=== PATIENT | male | born 1950 | race Caucasian/White ===

== ENCOUNTER 2023-04-11 07:03 | Outpatient (OUT) | payer MEDICARE, OTHER, SELFPAY ==
--- NOTE | 2023-04-11 07:00 | NM_ITS ---
Patient: ASAD BOND Exam Date: 04/11/2023 : 1950 Gender:M Ordering : DR Ruddy Salas . Admission #: [id number] Family : DR. LUIS FIELD . Order #: [id number] CLICK HERE TO VIEW EXAM RADIOLOGY REPORT PROCEDURE: NM KAYLEEN PERF SPECT REST STR COMPARISON: None. INDICATIONS: Coronary artery disease, pre-procedure cardiovascular exam TECHNIQUE: Exam Description: Stress/Rest one day protocol gated SPECT Rest Imagin.1 mCi Tc-99m Cardiolite IV on 04/11/2023 Stress Imaging 30.3 mCi Tc-99m Cardiolite IV on 04/11/2023 Exercise Protocol: Pavan Heart Rate (bpm): Rest: 62 Max: 133 PMHR: 84 Blood Pressure: Rest: 138/90 Max: 170/98 Exercise Time: Minutes: 11 Seconds: 00 Stage Reached: Stage: 5 Mets 10.8 Symptoms: Rest and peak stress ECG findings were abnormal and the exercise portion of the study was abnormal per attending physician Dr. Field due to EKG changes. For more details please see separate cardiac stress test report. FINDINGS: QUALITY OF STUDY: Excellent. PERFUSION DEFECT: None. LOCATION: N/A SIZE: N/A. SEVERITY: N/A. TYPE: N/A. WALL MOTION: Normal. LV SIZE: Normal. 81 mL. TID / TCD: None; 0.7 LVEF: Normal. Calculated EF 61%. SUMMARY: Myocardial perfusion imaging study is NORMAL. CONCLUSION: 1. Normal exercise test, no reversible ischemia 2. Abnormal exercise test secondary to EKG changes Dictated by: Orestes Monge MD on 04/11/2023 at 15:08 Approved by: Orestes Monge MD on 04/11/2023 at 15:11
--- NOTE | 2023-04-11 11:26 | PM.STRESS ---
Stress Test Stress Test Requesting physician: Ruddy Salas Procedure: Exercise Cardiolite stress test General Information: Reason for Stress Test: History of coronary artery disease, s/p [place] with CABG x2. Resting 12 - Lead Electrocardiogram: Rate & rhythm: Sinus bradycardia at a rate of 55. [place]: Normal T-waves: Mild flattening in aVL ST-segments: Normal orientation Stress Test: Protocol: Pavan protocol was followed, with injection of Cardiolite once target heart rate was achieved. Exercise capacity: Good exercise capacity. Total exercise time of 11 minutes 1 second reached Pvaan stage 4 at 4.2MPH, 16% grade, & 10.8 METs. Blood pressure: Initial: 138/90, Maximum: 170/98, Recovery: 152/86. Rate & rhythm: Patient remained in sinus rhythm during the exercise and recovery portions of the study.? The maximum heart rate was 113, which was 85% of the maximum predicted heart rate 158. Rare PACs and occasional PVCs were noted. ST-segments & T-waves: Within 1 minute of exercising, ST segments in lead III began downsloping. During recovery, there was up to 1mm ST segment depression in III & aVF, as well as V5 & V6. Patient response/symptoms: There were no symptoms similar to the chief complaint. Interpretation: This is an abnormal exercise stress test with up to 1mm ST segment depression in the inferolateral leads. No reproducible symptoms. Cardiolite imaging interpretation will be reported separately. Clinical correlation required.?
== END 2023-04-11 07:04 | disposition home or self-care (01) ==
PROVIDERS: PCP Family Medicine; Visit Provider Family Medicine
DX: I25.10 Atherosclerotic heart disease of native coronary artery without angina pectoris (principal); R94.39 Abnormal result of other cardiovascular function study; I25.2 Old myocardial infarction; Z95.1 Presence of aortocoronary bypass graft
CPT/HCPCS: 78452; 93017; A9500

== ENCOUNTER 2023-05-08 07:39 | Outpatient (OUT) | payer MEDICARE, OTHER, SELFPAY ==
--- NOTE | 2023-05-08 07:56 | XR_ITS ---
The [address] [address] Patient Name: ASAD BOND MRN: [id number] date: 1950 Sex: M Assigned Patient Location: [facility] Current Patient Location: [facility] Accession/Order Number: [id number] Exam Date: 05/08/2023 08:05 Report Date: 05/08/2023 08:37 At the request of: CHARITY YIN Procedure: XR DEXA axial skeleton DEXA bone density study CLINICAL: 72 years Male. Evaluate bone mineral density. The bone density study was assessed by dual-energy x-ray absorptiometry. Areas examined in AP projection. The test results are expressed in T-Score, which is used for diagnosis for osteoporosis, and reflects the standard deviations from the mean peak bone mineral density in young adults. Additional information regarding the Z-Score reflects the standard deviations from the mean peak bone mineral density for age- and gender-matched subjects. Lumbar Spine (L1-L4): BMD (gm/cm2): 1.474 T-Score: 2.1 Left Hip (total): BMD (gm/cm2): 1.312 T-Score: 1.5 Left Hip (Neck): BMD (gm/cm2): 1.244 T-Score: 1.3 Right Hip (Total): BMD (gm/cm2): 1.265 T-Score: 1.1 Right Hip (Neck): BMD (gm/cm2): 1.184 T-Score: 0.9 XR/XR DEXA axial skeleton IMPRESSION: 1. Bone mineral density by WHO criteria: Normal. Fracture risk is low. REFERENCE: In postmenopausal women and males 50 or over, comparison of the measured bone mineral density with the average value in young normal subjects (the T-Score) has been found to be useful in assessing fracture risk. Fracture risk approximately doubles for each 1.0 standard deviation (SD) that the individuals hip or spine bone mineral density is below the average value of young normal subjects. The World Health Organization (WHO) has provided the following definitions: 1. Normal: T-Score within one standard deviation of young adult mean value (T-Score at or above -1.0). 2. Osteopenia (low bone mass): T-Score more than one standard deviation below the young adult mean but less than 2.5 standard deviations below the young adult mean (T-Score between -1.0 and -2.5). 3. Osteoporosis: T-Score at or more than 2.5 standard deviations below the young adult mean (T-Score at or less than -2.5). 4. Severe Osteoporosis (established osteoporosis): T-Score more than 2.5 standard deviations below young adult and one or more fragility fracture (T-Score less than -2.5 plus fragility fractures). Electronically authenticated by: DONTA COFFEY Date: 05/08/2023 08:37
== END 2023-05-08 07:40 | disposition home or self-care (01) ==
LOC: RAD 07:39
PROVIDERS: PCP Family Medicine; Visit Provider Family Medicine
DX: M81.0 Age-related osteoporosis without current pathological fracture (principal); Z79.52 Long term (current) use of systemic steroids
CPT/HCPCS: 77080

== ENCOUNTER 2023-07-17 09:29 | Outpatient (OUT) | payer MEDICARE, OTHER, SELFPAY ==
--- NOTE | 2023-07-17 09:41 | XR_ITS ---
The [place] [id number] Patient Name: ASAD BOND MRN: [id number] date: 1950 Sex: M Assigned Patient Location: [facility] Current Patient Location: [facility] Accession/Order Number: [id number] Exam Date: 07/17/2023 09:58 Report Date: 07/17/2023 11:47 At the request of: CHARITY YIN Procedure: XR lumbar spine 2-3V EXAMINATION: XR lumbar spine 2-3V HISTORY: Lumbar radiculopathy M54.16 COMPARISON: No relevant comparison available. FINDINGS: BONES: Mild dextrocurvature. No acute fracture or spondylolisthesis. Moderate degenerative spondylosis and facet osteoarthropathy DISC SPACES: Moderate to severe disc space narrowing L5-S1 with vacuum disc PARASPINOUS: Negative. No paraspinous abnormality is seen. Vascular calcifications OTHER: Bilateral nephrolithiasis, left greater than right XR/XR lumbar spine 2-3V IMPRESSION: Moderate degenerative changes Electronically authenticated by: ANI HARDING Date: 07/17/2023 11:47
== END 2023-07-17 09:30 | disposition home or self-care (01) ==
LOC: RAD 09:31
PROVIDERS: PCP Family Medicine; Visit Provider Family Medicine
DX: M54.16 Radiculopathy, lumbar region (principal); M51.36 Other intervertebral disc degeneration, lumbar region
CPT/HCPCS: 72100

== ENCOUNTER 2023-10-02 09:23 | Outpatient (OUT) | payer MEDICARE, OTHER, SELFPAY ==
--- OUTSIDE RECORDS SUMMARY | 2023-10-02 09:27 | XMS_ITS | CCD ---
Author Name Unknown Address [address] [facility] [address] [place] [address] Organization [facility] Care Team Providers Care Bag Cutter Name Role Phone PHYSICIAN, DEFAULT Unavailable Unavailable PHYSICIAN, DEFAULT Unavailable Unavailable Charity Yin Primary Care Provider [phone] CHARITY YIN Primary Care Unavailable KAREEM DIAZ Referring Unavailable CHARITY YIN Primary Care Unavailable CHARITY YIN Primary Care Unavailable BLOOD, MOMO P Consulting Unavailable KAREEM DIAZ Attending Unavailable KAREEM DIAZ Admitting Unavailable LINDATYSON K Consulting Unavailable LADY JEANNIE Attending Unavailable LADY, JEANNIE Referring Unavailable HOY ., DR NASH Admitting Unavailable HOY ., DR NASH Attending Unavailable HOY ., DR NASH Consulting Unavailable HOY ., DR NASH Primary Care Unavailable HOY ., DR NASH Consulting Unavailable HOY ., DR NASH Primary Care Unavailable HOY ., DR NASH Admitting Unavailable HOY ., DR NASH Attending Unavailable HOY ., DR NASH Primary Care Unavailable HOY ., DR NASH Consulting Unavailable HOY ., DR NASH Admitting Unavailable HOY ., DR NASH Attending Unavailable ZIEBER, DR VALERIE Mtz Consulting Unavailable HOY ., DR NASH Primary Care Unavailable HOY ., DR NASH Consulting Unavailable HOY ., DR NASH Admitting Unavailable HOY ., DR NASH Attending Unavailable LADOGA, DR ANI Adame Consulting Unavailable HOY ., DR NASH Primary Care Unavailable HOY ., DR NASH Consulting Unavailable HOY ., DR NASH Admitting Unavailable HOY ., DR NASH Attending Unavailable HOY ., DR NASH Primary Care Unavailable HOY ., DR NASH Admitting Unavailable HOY ., DR NASH Attending Unavailable HOY ., DR NASH Consulting Unavailable Medications Current Medications Medication Drug Class(es) Dates Sig (Normalized) Sig (Original) Acetaminophen / HYDROcodone (4 sources) Opioid Agonist Start: 09-22-2020 HYDROcodone-acetam inophen (NORCO) 5-325 MG per tablet 1 tablet End: 09-21-2020 take 1 tablet by mouth every six hours as needed for pain HYDROcodone-acetaminophen (NORCO) 5-325 MG per tablet Take 1 tablet by mouth every 6 hours as needed for Pain. 0 09/21/2020 Discontinued (Stop Taking at Discharge) acetaminophen 325 mg / oxyCODONE hydrochloride 5 mg oral tablet (1 source) Opioid Agonist Start: 09-21-2020 End: 09-28-2020 take 1-2 tablets by mouth every four hours as needed for pain oxyCODONE-acetaminophen (PERCOCET) 5-325 MG per tablet Indications: Acute postoperative pain , Localized osteoarthritis of right knee Take 1-2 tablets by mouth every 4 hours as needed for Pain for up to 7 days. 50 tablet 0 09/21/2020 09/28/2020 Active alginic acid 200 mg / calcium carbonate 80 mg / magnesium trisilicate 20 mg / sodium bicarbonate 70 mg oral tablet (1 source) Start: 09-21-2020 calcium carbonate (TUMS) chewable tablet 500 mg aspirin 325 mg delayed release oral tablet (5 sources) Platelet Aggregation Inhibitor, Nonsteroidal Anti-inflammator y Drug Start: 09-20-2020 End: 10-05-2020 take 1 tablet by mouth twice daily aspirin 325 MG EC tablet Take 1 tablet by mouth 2 times daily for 14 days 28 tablet 0 09/21/2020 10/05/2020 Active End: 09-21-2020 take 1 tablet by mouth once daily aspirin 81 MG EC tablet Take 81 mg by mouth daily 0 09/21/2020 Discontinued (Stop Taking at Discharge) atorvastatin 40 mg oral tablet (4 sources) HMG-CoA Reductase Inhibitor Start: 09-20-2020 take 40 mg by mouth once daily 40 mg, Oral, NIGHTLY, First dose on Sat09/20/20 at 2100, Post-op chlordiazePOXIDE hydrochloride 10 mg oral capsule (4 sources) Benzodiazepine Start: 09-20-2020 chlordiazePOXIDE (LIBRIUM) capsule 10 mg docusate sodium 100 mg oral capsule (2 sources) Start: 09-21-2020 take 1 capsule by mouth twice daily docusate sodium (COLACE) 100 MG capsule Take 1 capsule by mouth 2 times daily 30 capsule 0 09/21/2020 Active Start: 04-01-2018 End: 09-01-2020 take 1 capsule by mouth twice daily docusate sodium (COLACE) 100 MG capsule Indications: Complete tear of left rotator cuff Take 1 capsule by mouth 2 times daily 30 capsule 0 04/01/2018 09/01/2020 Discontinued (LIST CLEANUP) docusate sodium 50 mg / sennosides, care home 8.6 mg oral tablet (1 source) Start: 09-20-2020 take 1 tablet by mouth twice daily 1 tablet, Oral, 2 TIMES DAILY, First dose on Sat09/20/20 at 1215, Post-op HYDROmorphone (DILAUDID) injection 0.25 mg (1 source) Start: 09-20-2020 HYDROmorphone (DILAUDID) injection 0.25 mg magnesium hydroxide 80 mg/ml oral suspension (1 source) Start: 09-20-2020 take 30 mL by mouth once daily as needed for constipation 30 mL, Oral, DAILY PRN, Constipation, Starting Sat09/20/20 at 1151 First line therapy for constipation. Post-op 24 hr metoprolol succinate 25 mg extended release oral tablet (4 sources) beta-Adrenerg ic Deondre Start: 09-20-2020 12.5 mg, Oral, DAILY WITH DINNER, First dose on Sat09/20/20 at 1730 Do not crush or chew. Hold for systolic blood pressure less than 100 or heart rate less than 50 Post-op metoprolol succi fernie (TOPROL XL) 25 MG extended release tablet Take 12.5 mg by mouth Daily with supper 0 Active Misc. Devices (WALKER) MISC (1 source) Start: 09-21-2020 Misc. Devices (WALKER) MISC 1 each by Does not apply route daily 1 each 0 09/21/2020 Active nitroglycerin 0.4 mg sublingual tablet (4 sources) Nitrate Vasodilator Start: 09-20-2020 0.4 mg, Sublingual, EVERY 5 MIN PRN, Chest pain, Starting Sat09/20/[address] 1 tablet under tongue upon chest pain, wait 5 minutes and may repeat up to 3 doses in 15 minutes. Do not crush or break. Post-op ondansetron 4 mg oral tablet (2 sources) Serotonin-3 Receptor Antagonist Start: 09-21-2020 take 1 tablet by mouth every six hours as needed for nausea ondansetron (ZOFRAN) 4 MG tablet Take 1 tablet by mouth every 6 hours as needed for Nausea 30 tablet 1 09/21/2020 Active Start: 04-01-2018 End: 09-01-2020 take 1 tablet by mouth every six hours as needed for nausea ondansetron (ZOFRAN) 4 MG tablet Indications: Complete tear of left rotator cuff Take 1 tablet by mouth every 6 hours as needed for Nausea 30 tablet 1 04/01/2018 09/01/2020 Discontinued (LIST CLEANUP) pantoprazole 40 mg delayed release oral tablet (2 sources) Proton Pump Inhibitor Start: 09-21-2020 End: 10-07-2020 take 1 tablet by mouth once daily before breakfast pantoprazole (PROTONIX) 40 MG tablet Take 1 tablet by mouth every morning (before breakfast) for 15 days 15 tablet 1 09/22/2020 10/07/2020 Active Promethazine (1 source) Phenothiazine Start: 09-20-2020 promethazine (PHENERGAN) tablet 12.5 mg 3 ml sodium chloride 9 mg/ml injection (3 sources) Start: 09-20-2020 10 mL, Intravenous, EVERY 12 HOURS SCHEDULED (2 times per day), First dose on Sat09/20/20 at 2100, Post-op Start: 09-20-2020 Intravenous, a t 125 mL/hr, CONTINUOUS, Starting Sat09/20/20 at 1215, Post-op Start: 09-20-2020 take 10 mL intravenous route o nce 10 mL, Intravenous, PRN, Line Care, Starting Sat09/20/20 at 1151 After every IV line use Post-op traZODone hydrochloride 150 mg oral tablet (4 sources) Serotonin Reuptake Inhibitor Start: 09-20-2020 take 150 mg by mouth once daily 150 mg, Oral, NIGHTLY, First dose on Sat09/20/20 at 2100, Post-op traZODone (DESYR EL) 100 MG tablet Take 150 mg by mouth nightly 0 Active Completed/Discontinued Medications Medication Drug Class(es) Dates Sig (Normalized) Sig (Original) acetaminophen 325 mg oral tablet (2 sources) Start: 09-20-2020 End: 09-22-2020 take 650 mg by mouth every six hours, then take 4000 mg by mouth every twenty-four hours 650 mg, Oral, EVERY 6 HOURS, First dose on Sat09/20/20 at 1200 Maximum dose of acetaminophen is 4000 mg from all sources in 24 hours. Post-op Start: 09-20-2020 End: 09-20-2020 acetaminophen (TYLENOL) tabl et 1,000 mg calcium chloride 0.0014 meq/ ml / potassium chloride 0.004 meq/ml / sodium chloride 0.103 meq/ml / sodium lactate 0.028 meq/ml injectable solution (1 source) Start: 09-21-2020 End: 09-20-2020 lactated ringers infusion Start: 09-21-2020 End: 09-20-2020 lactated ringers infusion ceFAZolin (ANCEF) 2 g in dextrose 5 % 50 mL IVPB (1 source) Start: 09-20-2020 End: 09-20-2020 2 g, Intravenous, EVERY 8 HOURS, 2 doses, First dose on Sat09/20/20 at 1300, Last dose on Sat09/20/20 at 2100, Post-op celecoxib 200 mg oral capsule (1 source) Nonsteroidal Anti-inflammatory Drug Start: 09-20-2020 End: 09-20-2020 celecoxib (CELEBREX) capsule 200 mg gabapentin 300 mg oral capsule (1 source) Anti-epileptic Agent Start: 09-20-2020 End: 09-20-2020 gabapentin (NEURONTIN) capsule 300 mg 2 ml midazolam 1 mg/ml injection (1 source) Benzodiazepine Start: 09-20-2020 End: 09-20-2020 midazolam (VERSED) injection 2 mg 72 hr scopolamine 0.0139 mg/hr transdermal system (1 source) Anticholinergic Start: 09-20-2020 End: 09-20-2020 scopolamine (TRANSDERM-SCOP) transdermal patch 1 patch Problems Active Problems Problem Classification Problem Date Documented Da te Episodic/Chronic Coronary atherosclerosis and other heart disease (6 sources) Coronary arteriosclerosis; Translations: [Atherosclerotic heart disease of [place] coronary artery without angina pectoris] Onset: 09-20-2020 09-20-2020 Chronic Disorders of lipid metabolism (3 sources) Hyperlipidemia; Translations: [Hyperlipidemia, unspecified] Onset: 11-18-2022 09-20-2020 Chronic Mood disorders (2 sources) Mood swings; Translations: [Mood swings] 09-20-2020 Chronic Nutritional deficiencies (1 source) Vitamin D deficiency, unspecified; Translations: [VITAMIN D DEFICIENCY UNSPECIFIED] Onset: 11-18-2022 Chronic Osteoarthritis (10 sources) Osteoarthritis of knee; 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, left wrist] Onset: 09-20-2020 09-20-2020 Chronic Other acquired deformities (2 sources) Unspecified acquired deformity of right forearm; Translations: [Unspecified acquired deformity of right forearm] Onset: 07-05-2022 Episodic Other acquired deformities (2 sources) Unspecified acquired deformity of left forearm; Translations: [Unspecified acquired deformity of left forearm] Onset: 07-05-2022 Episodic Other connective tissue disease (2 sources) Fibromyalgia; Translations: [Fibromyalgia] 09-20-2020 Episodic Other nervous system disorders (1 source) Acute postoperative pain; Translations: [Acute postoperative pain] Episodic Other non-traumatic joint disorders (4 sources) Other specified arthritis, left knee; Translations: [OTHER SPECIFIED ARTHRITIS LEFT KNEE] Onset: 11-19-2022 Chronic Other non-traumatic joint disorders (1 source) Pain in left knee; Translations: [PAIN IN LEFT KNEE] Onset: 12-03-2022 Episodic Residual codes; unclassified (2 sources) Pain, unspecified; Translations: [Pain, unspecified] Onset: 07-05-2022 Episodic Unclassified (1 source) Patient encounter status; Translations: [Preop testing] Unclassified (2 sources) Delayed recovery from general anesthesia; Translations: [Prolonged emergence from general anesthesia] 09-20-2020 Unclassified (3 sources) CONTACT W/AND (SUSP) EXPOS COVID-19; Translations: [CONTACT W/AND (SUSP) EXPOS COVID-19] Onset: 09-14-2022 Past or Other Problems Problem Classification Problem Date Documented Da te Episodic/Chronic Coronary atherosclerosis and other heart disease (1 source) Presence of aortocoronary bypass graft; Translations: [PRESENCE AORTOCORONARY BYPASS GRAFT] Onset: 11-18-2022 Episodic Diabetes mellitus without complication (1 source) Other abnormal glucose; Translations: [OTHER ABNORMAL GLUCOSE] Onset: 11-18-2022 Episodic Genitourinary symptoms and ill-defined conditions (1 source) Nocturia; Translations: [NOCTURIA] Onset: 11-18-2022 Episodic Other screening for suspected conditions (not mental disorders or infectious disease) (6 sources) Encounter for screening for malignant neoplasm of rectum; Translations: [Encounter for screening for malignant neoplasm of prostate] Onset: 11-16-2022 Episodic Other upper respiratory infections (1 source) Acute sinusitis, unspecified; Translations: [ACUTE SINUSITIS UNSPECIFIED] Onset: 09-14-2022 Episodic Unclassified (1 source) CONTACT W/AND (SUSP) EXPOS COVID-19; Translations: [CONTACT W/AND (SUSP) EXPOS COVID-19] Onset: 09-11-2022 Results Test Name Value Interpretation Reference Range Facil ity MRI KNEE LT WO CONon 023 MRI KNEE LT WO CON EXAMINATION: MRI KNEE LT WO CON HISTORY: Idiopathic osteoarthritis ; chronic left knee pain COMPARISON: No relevant comparison available. TECHNIQUE: A complete multi-planar MRI was performed. FINDINGS: MEDIAL COMPARTMENT MEDIAL MENISCUS: Undersurface tear of posterior junction and horn. CARTILAGE: Thinning without focal defect. BONES: Degenerative osteophytes along the articular margins. No fracture or bone lesion. MCL AND MEDIAL CAPSULE: Normal medial collateral ligament and medial capsule. LATERAL COMPARTMENT LATERAL MENISCUS: No visible tear or significant degeneration. CARTILAGE: Thinning without focal defect. BONES: Degenerative osteophytes along the articular margins. No fracture or bone lesion. LCL/POSTEROLAT COMPLEX: Normal lateral collateral ligament, fascicles, lateral capsule and ligaments. ANTERIOR COMPARTMENT PATELLA: No marrow pathology, fracture, or significant arthropathy. CARTILAGE: No visible defect. TENDONS: Normal. EFFUSION: Large joint effusion. ACL: Normal appearing ligament. PCL: Normal appearing ligament. MENISCOFEMORAL: Normal meniscofemoral ligaments. OTHER: Negative. IMPRESSION: 1. Undersurface tear the medial meniscus posterior junction and horn. Motion artifact this in area slightly limits evaluation. 2. Generalized cartilage thinning of the medial and lateral compartments without focal defects. 3. Small degenerative osteophytes along the articular margins of the medial and lateral compartments. 4. Large joint effusion. Electronically authenticated by: VALERIE CHRISTY Date: 2022-11-27 08:55 Normal [facility] OCC BLD IMMUNO SCREENon 03-0 OCCULT BLOOD Negative Normal NEGATIVE [facility] Comment on above: Performed By: #### O BSCRN #### [facility] [address] [address] [address] Ankit Peters INSULINon 11-15-2022 Insulin 12.6 uIU/mL Normal 2.6-24.[address] [facility] Comment on above: Performed By: #### I NSULIN ####[facility] [address] [place], [place] [address]Dr. Ankit Peters CBC AUTO DIFFon 11-14-2022 BASO # 0.0 103/ul Normal 0.0-0.[address] [facility] Comment on above: Performed By: #### C BC ####[facility] [address] [place], [place] [address]Dr. Ankit Peters Basophils/100 WBC (Bld) 0.5 % Normal 0.2-2.[address] [facility] Comment on above: Performed By: #### C BC ####[facility] [address] [place], [place] [address]Dr. Ankit Peters EO # 0.1 103/ul Normal 0.0-0.[address] [facility] Comment on above: Performed By: #### C BC ####[facility] [address] [place], [place] [address]Dr. Ankit Peters Eosinophils/100 WBC (Bld) 2.0 % Normal 0.9-7.[address] [facility] Comment on above: Performed By: #### C BC ####[facility] [address] [place], [place] [address]Dr. Ankit Peters Erythrocyte distribution width (RBC) [Ratio] 12.6 % Normal 11.0-15.0 [facility] Comment on above: Performed By: #### C BC ####[facility] [address] [place], [place] [address]Dr. Ankit Peters Hematocrit (Bld) [Volume fraction] 46.6 % Normal 42.0-54.[address] [facility] Comment on above: Performed By: #### C BC ####[facility] [address] [place], [place] [address]Dr. Ankit Peters Hemoglobin (Bld) [Mass/Vol] 15.3 g/dL Normal 14.0-18.[address] [facility] Comment on above: Performed By: #### C BC ####[facility] [address] [address]DrCarolyn Guerreroradha Peters IG # 0.02 10e3/ul Normal 0.00-0.[address] [facility] Comment on above: Performed By: #### C BC ####[facility] [address] [address]Dr. Ankit Peters IG % 0.3 % Normal 0.0-0.[address] [facility] Comment on above: Performed By: #### C BC ####[facility] [address] [place], [place] [address]DrCarolyn Peters LYMPH # 1.4 103/ul Normal 1.2-3.[address] [facility] Comment on above: Performed By: #### C BC ####[facility] [address] [place], [place] [address]DrCarolyn Yolandaradha Peters Lymphocytes/100 WBC (Bld) 21.5 % Normal 20.5-60.[address] [facility] Comment on above: Performed By: #### C BC ####[facility] [address] [place], [place] [address]DrCarolyn Yolandaradha Peters MANUAL DIFF REQ NO Normal [facility] Comment on above: Performed By: #### C BC ####[facility] [address] [place], [place] [address]DrCarolyn Yolandaradha Peters MCH (RBC) [Entitic mass] 31.6 pg Normal 25.9-34.0 [facility] Comment on above: Performed By: #### C BC ####[facility] [address] [place], [place] [address]DrCarolyn Yolandaradha Peters MCHC (RBC) [Mass/Vol] 32.8 g/dL Normal 29.9-35.2 [facility] Comment on above: Performed By: #### C BC ####[facility] [address] [place], [place] [address]DrCarolyn Peters MCV (RBC) [Entitic vol] 96.3 fL Critically high 80.0-94.0 [facility] Comment on above: Performed By: #### C BC ####[facility] [address] [address]DrCarolyn Peters MONO # 0.6 103/ul Normal 0.3-0.8 [facility] Comment on above: Performed By: #### C BC ####[facility] [address] [address]DrCarolyn Peters Monocytes/100 WBC (Bld) 9.3 % Normal 1.7-12.0 [facility] Comment on above: Performed By: #### C BC ####[facility] [address] [place], [place] [address]DrCarolyn Peters NEUT # 4.4 103/ul Normal 1.4-6.5 [facility] Comment on above: Performed By: #### C BC ####[facility] [address] [place], [place] [address]DrCarolyn Peters Neutrophils/100 WBC (Bld) 66.4 % Normal 43.0-75.0 [facility] Comment on above: Performed By: #### C BC ####[facility] [address] [place], [place] [address]DrCarolyn Peters Platelet mean volume (Bld) [Entitic vol] 9.5 fL Normal 9.5-13.5 [facility] Comment on above: Performed By: #### C BC ####[facility] [address] [place], [place] [address]Dr. Ankit Peters PLT 234 103/ul Normal 150-450 [facility] Comment on above: Performed By: #### C BC ####[facility] [address] [place], [place] [address]DrCarolyn Peters RBC 4.84 106/ul Normal 4.70-6.10 [facility] Comment on above: Performed By: #### C BC ####[facility] [address] [id number] Peters WBC 6.6 103/ul Normal 4.0-11.0 [facility] Comment on above: Performed By: #### C BC ####[facility] [address] [address]Dr. Ankit Peters FREE THYROXINE INDEX T7on FTI 2.82 Normal 1.30-4.[address] [facility] Comment on above: Performed By: #### L IPID, URIC, CMP, TSH, T7 #### [facility] [address] [address] [address] Ankit Peters T3U 34.0 % Normal 33.0-40.[address] [facility] Comment on above: Performed By: #### L IPID, URIC, CMP, TSH, T7 #### [facility] [address] [address] [address] Ankit Peters T4 [Mass/Vol] 8.30 ug/dL Normal 4.50-12.10 [facility] Comment on above: Performed By: #### L IPID, URIC, CMP, TSH, T7 #### [facility] [address] [address] [address] Ankit Peters GLYCOHEMOGLOBIN A1Con 2022 ADA RECOMMENDATION SEE BELOW Normal [facility] Comment on above: Result Comment: ADA RECOMMENDED LIMIT 4.0 - 6.0 ADA THERAPEUTIC TARGET < 7.0 ACTION SUGGESTED > 7.0 Performed By: #### A 1C #### [facility] [address] [address] [address] Ankit Peters Glucose [Mass/Vol] 105 mg/dL Normal [facility] Comment on above: Performed By: #### A 1C #### [facility] [address] [address] [address] Ankit Peters HbA1c (Bld) [Mass fraction] 5.3 % Normal 4.5-6.[address] [facility] Comment on above: Performed By: #### A 1C #### [facility] [address] [address] [address] Ankit Peters LIPID PROFILEon 11-14-2022 CHOL-HDL RATIO NORM SEE BELOW Normal [facility] Comment on above: Result Comment: 3.3 - 4.4 LOW RISK 4.4 - 7.1 AVERAGE RISK 7.1 - 11.0 MODERATE RISK >11.0 HIGH RISK Performed By: #### L IPID, URIC, CMP, TSH, T7 #### [facility] [address] [address] [address] Ankit Peters Cholesterol [Mass/Vol] 154 mg/dL Normal <=[address] [facility] Comment on above: Performed By: #### L IPID, URIC, CMP, TSH, T7 #### [facility] [address] [address] [address] Ankit Peters Cholesterol in HDL [Mass/Vol] 55 mg/dL Normal 40-[address] [facility] Comment on above: Performed By: #### L IPID, URIC, CMP, TSH, T7 #### [facility] [address] [address] [address] Ankit Peters Cholesterol in LDL [Mass/Vol] 84.2 mg/dL Normal [facility] Comment on above: Performed By: #### L IPID, URIC, CMP, TSH, T7 #### [facility] [address] [address] [address] Ankit Peters Cholesterol.total/Ch olesterol in HDL [Mass ratio] 2.8 {ratio} Normal [facility] Comment on above: Performed By: #### L IPID, URIC, CMP, TSH, T7 #### [facility] [address] [address] [address] Ankit Peters HDL NORMAL > or = 60 mg/dl - LOW CARDIOVASCULAR RISK <40 mg/dl - HIGH CARDIOVASCULAR RISK Normal [facility] Comment on above: Performed By: #### L IPID, URIC, CMP, TSH, T7 #### [facility] [address] [address] [address] Ankit Peters LDL CALC NORMAL SEE BELOW Normal [facility] Comment on above: Result Comment: <100 mg/dl OPTIMAL 100 - 129 mg/dl NEAR OR ABOVE OPTIMAL 130 - 159 mg/dl BORDERLINE HIGH 160 - 189 mg/dl HIGH >190 mg/dl VERY HIGH Performed By: #### L IPID, URIC, CMP, TSH, T7 #### [facility] [address] [address] [address] Ankit Peters Triglyceride [Mass/Vol] 74 mg/dL Normal <=[address] [facility] Comment on above: Performed By: #### L IPID, URIC, CMP, TSH, T7 #### [facility] [address] [address] [address] Ankit Peters VLDL CALC 14.8 mg/dL Normal [facility] Comment on above: Performed By: #### L IPID, URIC, CMP, TSH, T7 #### [facility] [address] [address] [address] Ankit Peters PROF 14(COMP METB)on 023 Albumin [Mass/Vol] 4.1 g/dL Normal 3.4-5.0 [facility] Comment on above: Performed By: #### L IPID, URIC, CMP, TSH, T7 #### [facility] [address] [place] [address] Dr. Ankit Peters Albumin/Globulin [Mass ratio] 1.2 {ratio} Normal [facility] Comment on above: Performed By: #### L IPID, URIC, CMP, TSH, T7 #### [facility] [address] [place] [address] Dr. Ankit Peters ALP [Catalytic activity/Vol] 65 U/L Normal 46-[address] [facility] Comment on above: Performed By: #### L IPID, URIC, CMP, TSH, T7 #### [facility] [address] [place] [address] Dr. Ankit Peters ALT [Catalytic activity/Vol] 36 U/L Normal 16-[address] [facility] Comment on above: Performed By: #### L IPID, URIC, CMP, TSH, T7 #### [facility] [address] [place] [address] Dr. Ankit Peters Anion gap [Moles/Vol] 9.1 mmol/L Normal [facility] Comment on above: Performed By: #### L IPID, URIC, CMP, TSH, T7 #### [facility] [address] [place] [address] Dr. Ankit Peters AST [Catalytic activity/Vol] 29 U/L Normal 15-37 [facility] Comment on above: Performed By: #### L IPID, URIC, CMP, TSH, T7 #### [facility] [address] [address] [address] Ankit Peters Bilirubin [Mass/Vol] 0.6 mg/dL Normal 0.2-1.[address] [facility] Comment on above: Performed By: #### L IPID, URIC, CMP, TSH, T7 #### [facility] [address] [place] [address] Dr. Ankit Peters Calcium [Mass/Vol] 9.4 mg/dL Normal 8.5-10.1 [facility] Comment on above: Performed By: #### L IPID, URIC, CMP, TSH, T7 #### [facility] [address] [place] [address] Dr. Ankit Peters Chloride [Moles/Vol] 104 mmol/L Normal 98-107 [facility] Comment on above: Performed By: #### L IPID, URIC, CMP, TSH, T7 #### [facility] [address] [place] [address] Dr. Ankit Peters CO2 [Moles/Vol] 30.2 mmol/L Normal 21.0-32.0 [facility] Comment on above: Performed By: #### L IPID, URIC, CMP, TSH, T7 #### [facility] [address] [place] [address] Dr. Ankit Peters Creatinine [Mass/Vol] 0.90 mg/dL Normal 0.70-1.[address] [facility] Comment on above: Performed By: #### L IPID, URIC, CMP, TSH, T7 #### [facility] [address] [address] [address] Ankit Peters EGFR-AF BRITISH >60 Normal >=60 [facility] Comment on above: Performed By: #### L IPID, URIC, CMP, TSH, T7 #### [facility] [address] [address] [address] Ankit Peters EGFR-NON AF BRITISH >60 Normal >=60 [facility] Comment on above: Performed By: #### L IPID, URIC, CMP, TSH, T7 #### [facility] [address] [place] [address] Dr. Ankti Peters Globulin (S) [Mass/Vol] 3.4 g/dL Normal [facility] Comment on above: Performed By: #### L IPID, URIC, CMP, TSH, T7 #### [facility] [address] [place] [address] Dr. Ankit Peters Glucose [Mass/Vol] 97 mg/dL Normal 74-106 [facility] Comment on above: Performed By: #### L IPID, URIC, CMP, TSH, T7 #### [facility] [address] [place] [address] Dr. Ankit Peters Potassium [Moles/Vol] 4.3 mmol/L Normal 3.5-5.1 [facility] Comment on above: Performed By: #### L IPID, URIC, CMP, TSH, T7 #### [facility] [address] [place] [address] Dr. Ankit Peters Protein [Mass/Vol] 7.5 g/dL Normal 6.4-8.2 [facility] Comment on above: Performed By: #### L IPID, URIC, CMP, TSH, T7 #### [facility] [address] [place] [address] Dr. Ankit Peters Sodium [Moles/Vol] 139 mmol/L Normal 136-145 [facility] Comment on above: Performed By: #### L IPID, URIC, CMP, TSH, T7 #### [facility] [address] [place] [address] Dr. Ankit Peters Urea nitrogen [Mass/Vol] 17.0 mg/dL Normal 7.0-18.0 [facility] Comment on above: Performed By: #### L IPID, URIC, CMP, TSH, T7 #### [facility] [address] [place] [address] Dr. Ankit Peters Urea nitrogen/Creatinine [Mass ratio] 18.9 mg/mg Normal [facility] Comment on above: Performed By: #### L IPID, URIC, CMP, TSH, T7 #### [facility] [address] [address] [address] Ankit Peters TSHon 11-14-2022 TSH 3.285 uIU/mL Normal 0.358-3.740 [facility] Comment on above: Performed By: #### L IPID, URIC, CMP, TSH, T7 #### [facility] [address] [address] [address] Ankit Peters URIC ACID SERUMon 11-14-2022 Urate [Mass/Vol] 4.8 mg/dL Normal 3.5-7.2 [facility] Comment on above: Performed By: #### L IPID, URIC, CMP, TSH, T7 #### [facility] [address] [address] [address] Ankit Peters VITAMIN D 25 OHon 11-14-2022 VIT D 25-OH 41.4 ng/mL Normal [facility] Comment on above: Performed By: #### V ITAD, PSASC ####[facility] [address] [id number] Peters VIT D RANGES SEE BELOW Normal [facility] Comment on above: Result Comment: <20 ng/mL Vit D deficient 20 - <30 ng/mL Vit D insufficient 30 - 100 ng/mL Vit D sufficient >100 ng/mL Potential Toxicity Performed By: #### V ITAD, PSASC ####[facility] [id number] [id number]. Ankit Peters Covid-19 PCR (CVDTB)on 08-17 SARS-CoV-2 (COVID-19) RNA KANDICE+probe Ql (Unsp spec) Not detected Normal NOT DETECTED [facility] Comment on above: Result Comment: This test is not yet approved or cleared by the [place] FDA. When there are no FDA-approved or cleared tests available, and other criteria are met, FDA can make tests available under an emergency access mechanism called an Emergency Use Authorization (EUA). The EUA for this test is supported by the [place] of Health and Human Service's (HHS's) declaration that circumstances exist to justify the emergency use of in vitro diagnostics for the detection and/or diagnosis of the virus that causes COVID-19. This EUA will remain in effect (meaning this test can be used) for the duration of the COVID-19 declaration justifying emergency of IVDs, unless it is terminated or revoked by FDA (after which the test may no longer be used). When diagnostic testing is negative, the possibility of a false negative should be considered in the context of a patient's recent exposures and the presence of clinical signs and symptoms consistent with SARS-CoV-2. Performed By: #### C VDTBH ####[address] [address]Dr. Ankit Peters INFLUENZA A AND B AGon 09-11 [facility] SEE BELOW Normal [facility] Comment on above: Result Comment: Nega tive for Flu A protein angiten. Infection due to Flu A cannot be ruled out. Flu A angiten in the sample may be below the detection limit of the test. Performed By: #### I NFLUAB ####[facility] [id number] [place], [place] [address]Dr. Ankit Peters INFLUBNEGH SEE BELOW Normal [facility] Comment on above: Result Comment: Nega tive for Flu B protein antigen. Infection due to Flu B cannot be ruled out. Flu B antigen in the sample may be below the detection limit of the test. Performed By: #### I NFLUAB ####[facility] [address] [place], [place] [address]Dr. Ankit Peters INFLUENZA A AG Negative Normal NEGATIVE SEE COMMENT [facility] Comment on above: Performed By: #### I NFLUAB ####[facility] [address] [place], [place] [address]Dr. Ankit [facility] INFLUENZA B AG Negative Normal NEGATIVE SEE COMMENT [facility] Comment on above: Performed By: #### I NFLUAB ####[address] [address]Dr. Ankit [facility] INTERNAL CONTROLS Within Normal Limits Normal Within Normal Limits [facility] Comment on above: Performed By: #### I NFLUAB ####[facility] [address] [place], [place] [address]Da. Ankit Peters Office Visiton 07-05-2022 Follow-up visit [id number] Levon Roach 1950 M Date Provider Department Center 07/05/2022 BHUPENDRA VELAZQUEZ ORTHO MPORTHO No family history on file Level of Service:20162 [place] OFFICE/OUTPATIENT NEW MODERATE MDM 45-59 MINUTES Reason for Visit and Comments: Pain [136] Pain [136] Normal [facility] Basic Metabolic Panelon Anion gap [Moles/Vol] 7 mmol/L Low 9 - 17 mmol/L [place] Bun/Cre Ratio 17 [place] Calcium [Mass/Vol] 9.1 mg/dL 8.6 - 10.4 mg/dL [place] Chloride [Moles/Vol] 99 mmol/L 98 - 107 mmol/L [place] CO2 [Moles/Vol] 29 mmol/L 20 - 31 mmol/L [place] Creatinine [Mass/Vol] 0.82 mg/dL 0.7 - 1.2 mg/dL [place] GFR >60 >60 mL/min [place] GFR Non- >60 >60 mL/min [place] GFR/1.73 sq M predicted among non-blacks MDRD (S/P/Bld) [Vol rate/Area] [place] Comment on above: Average GFR for 70 o r more years old: 75 mL/min/1.73sq m Chronic Kidney Disease: <60 mL/min/1.73sq m Kidney failure: <15 mL/min/1.73sq m eGFR calculated using average adult body mass. Additional eGFR calculator available at: http://www.AdventEnna.99 Fahrenheit/multiple_crcl_2012.htm GFR/1.73 sq M predicted among non-blacks MDRD (S/P/Bld) [Vol rate/Area] NOT REPORTED [place] Glucose [Mass/Vol] 112 mg/dL High 70 - 99 mg/dL [place] Interpretation and review of laboratory results Abnormal [place] Potassium [Moles/Vol] 4.0 mmol/L 3.7 - 5.3 mmol/L [place] Sodium [Moles/Vol] 135 mmol/L 135 - 144 mmol/L [place] Urea nitrogen [Mass/Vol] 14 mg/dL 8 - 23 mg/dL [place] Basic Metabolic Profon 09-22 (cont.) Normal [facility] Comment on above: Result Comment: Aver age GFR for 70 or more years old: 75 mL/min/1.73sq m Chronic Kidney Disease: <60 mL/min/1.73sq m Kidney failure: <15 mL/min/1.73sq m eGFR calculated using average adult body mass. Additional eGFR calculator available at: http://www.Follica/multiple_crcl_2012.htm Performed By: #### B HARI, CDP #### [facility] [address] [place] [address] Provider Relations Representative: Jeremías Donald MD Anion gap [Moles/Vol] 7 mmol/L Low 9-17 [facility] Comment on above: Performed By: #### B HARI, CDP #### [facility] [address] [place] [address] Provider Relations Representative: Jeremías Donald MD BUN/CRE Ratio 17 Normal 9-20 [facility] Comment on above: Performed By: #### B HARI, CDP #### [facility] [address] [place] [address] Provider Relations Representative: Jeremías Donald MD Calcium [Mass/Vol] 9.1 mg/dL Normal 8.6-10.4 [facility] Comment on above: Performed By: #### B HARI, CDP #### [facility] [address] [place] [address] Provider Relations Representative: Jeremías Donald MD Chloride [Moles/Vol] 99 mmol/L Normal 98-107 [facility] Comment on above: Performed By: #### B MP, CDP #### [facility] [address] [place] [address] Provider Relations Representative: Jeremías Donald MD CO2 [Moles/Vol] 29 mmol/L Normal 20-31 [facility] Comment on above: Performed By: #### B MP, CDP #### [facility] [address] [place] [address] Provider Relations Representative: Jeremías Donald MD Creatinine [Mass/Vol] 0.82 mg/dL Normal 0.70-1.20 [facility] Comment on above: Performed By: #### B MP, CDP #### [facility] [address] [place] [address] Provider Relations Representative: Jeremías Donald MD GFR, Amer >60 Normal >60 [facility] Comment on above: Performed By: #### B HARI, CDP #### [facility] [address] [place] [address] Provider Relations Representative: Jeremías Donald MD GFR,non Amer >60 Normal >60 [facility] Comment on above: Performed By: #### B HAIR, CDP #### [facility] [address] [place] [address] Provider Relations Representative: Jeremías Donald MD Glucose [Mass/Vol] 112 mg/dL High 70-99 [facility] Comment on above: Performed By: #### B MP, CDP #### [facility] [address] [place] [address] Provider Relations Representative: Jeremías Donald MD Potassium [Moles/Vol] 4.0 mmol/L Normal 3.7-5.3 [facility] Comment on above: Performed By: #### B MP, CDP #### [facility] [address] [place] [address] Provider Relations Representative: Jeremías Donald MD Sodium [Moles/Vol] 135 mmol/L Normal 135-144 [facility] Comment on above: Performed By: #### B MP, CDP #### [facility] [address] [place] [address] Provider Relations Representative: Jeremías Donald MD Urea nitrogen [Mass/Vol] 14 mg/dL Normal 8-23 [facility] Comment on above: Performed By: #### B MP, CDP #### [facility] [address] [facility] [place] [address] Provider Relations Representative: Jeremías Donald MD Staging: NOT REPORTED Normal [facility] Comment on above: Performed By: #### B MP, CDP #### [facility] [address] [facility] [place] [address] Provider Relations Representative: Jeremías Donald MD CBC Auto Differentialon Basophils (Bld) [#/Vol] 0.03 10*3/uL [place] Basophils/100 WBC (Bld) 0 % 0 - 2 % [place] Differential Type NOT REPORTED [place] Eosinophils (Bld) [#/Vol] 0.10 10*3/uL [place] Eosinophils/100 WBC (Bld) 1 % 1 - 4 % [place] Erythrocyte distribution width (RBC) [Ratio] 12.0 % 11.8 - 14.4 % [place] Hematocrit (Bld) [Volume fraction] 39.6 % Low 40.7 - 50.3 % [place] Hemoglobin (Bld) [Mass/Vol] 12.8 g/dL Low 13 - 17 g/dL [place] Immature granulocytes (Bld) [#/Vol] 0.03 10*3/uL [place] Immature granulocytes (Bld) [#/Vol] 0 % 0 [place] Interpretation and review of laboratory results Abnormal [place] Lymphocytes (Bld) [#/Vol] 0.92 10*3/uL Low [place] Lymphocytes/100 WBC (Bld) 8 % Low 24 - 43 % [place] MCH (RBC) [Entitic mass] 32.1 pg 25.2 - 33.5 pg [place] MCHC (RBC) [Mass/Vol] 32.3 g/dL 28.4 - 34.8 g/dL [place] MCV (RBC) [Entitic vol] 99.2 fL 82.6 - 102.9 fL [place] Monocytes (Bld) [#/Vol] 1.26 10*3/uL [place] Monocytes/100 WBC (Bld) 11 % 3 - 12 % [place] Platelet mean volume (Bld) [Entitic vol] 10.0 fL 8.1 - 13.5 fL [place] Platelets (Bld) [#/Vol] NOT REPORTED [place] Platelets (Bld) [#/Vol] 203 10*3/uL [place] RBC (Bld) [#/Vol] 3.99 10*6/uL Low 4.21 - 5.77 m/uL [place] RBC morphology finding Nom (Bld) NOT REPORTED [place] Segmented neutrophils/100 WBC (Bld) 80 % High 36 - 65 % [place] Segs Absolute 8.94 [place] WBC (Bld) [#/Vol] 11.3 10*3/uL [place] WBC (Bld) [#/Vol] 0.0 10*3/uL 0.0 per 100 WBC M [place] WBC Morphology NOT REPORTED [place] CBC with Diffon 09-22-2020 Abs. Basophil 0.03 k/uL Normal 0.00-0.20 [facility] Comment on above: Performed By: #### B HARI, CDP #### [facility] [address] [place] [address] Provider Relations Representative: Jeremías Donald MD Abs.Imm.Granulocyte 0.03 k/uL Normal 0.00-0.30 [facility] Comment on above: Performed By: #### B MP, CDP #### [facility] [address] [place] [address] Provider Relations Representative: Jeremías Donald MD Abs.Neutrophil (Seg) 8.94 k/uL High 1.50-8.10 [facility] Comment on above: Performed By: #### B HARI, CDP #### [facility] [address] [place] [address] Provider Relations Representative: Jeremaís Donald MD Basophils/100 WBC (Bld) 0 % Normal 0-2 [facility] Comment on above: Performed By: #### B HARI, CDP #### [facility] [address] [place] [address] Provider Relations Representative: Jeremías oDnald MD Eosinophils (Bld) [#/Vol] 0.10 10*3/uL Normal 0.00-0.44 [facility] Comment on above: Performed By: #### B HARI, CDP #### [facility] [address] [place] [address] Provider Relations Representative: Jeremías Donald MD Eosinophils/100 WBC (Bld) 1 % Normal 1-4 [facility] Comment on above: Performed By: #### B HARI, CDP #### [facility] [address] [place] [address] Provider Relations Representative: Jeremías Donald MD Erythrocyte distribution width (RBC) [Ratio] 12.0 % Normal 11.8-14.4 [facility] Comment on above: Performed By: #### B MP, CDP #### [facility] [address] [place] [address]. [place] [address] Provider Relations Representative: Jeremías Donald MD Hematocrit (Bld) [Volume fraction] 39.6 % Low 40.7-50.3 [facility] Comment on above: Performed By: #### B MP, CDP #### [facility] [address] [place] [address] Provider Relations Representative: Jeremías Donald MD Hemoglobin (Bld) [Mass/Vol] 12.8 g/dL Low 13.0-17.0 [facility] Comment on above: Performed By: #### B HARI, CDP #### [facility] [address] [place] [address] Provider Relations Representative: Jeremías Donald MD Immature granulocytes (Bld) [#/Vol] 0 % Normal 0 [facility] Comment on above: Performed By: #### B HARI, CDP #### [facility] [address] [place] [address] Provider Relations Representative: Jeremías Donald MD Lymphocytes (Bld) [#/Vol] 0.92 10*3/uL Low 1.10-3.70 [facility] Comment on above: Performed By: #### B HARI, CDP #### [facility] [address] [place] [address] Provider Relations Representative: Jeremías Donald MD Lymphocytes/100 WBC (Bld) 8 % Low 24-43 [facility] Comment on above: Performed By: #### B MP, CDP #### [facility] [address] [place] [address] Provider Relations Representative: Jeremías Donald MD MCH (RBC) [Entitic mass] 32.1 pg Normal 25.2-33.5 [facility] Comment on above: Performed By: #### B MP, CDP #### [facility] [address] [facility] [place] [address] Provider Relations Representative: Jeremías Donald MD MCHC (RBC) [Mass/Vol] 32.3 g/dL Normal 28.4-34.8 [facility] Comment on above: Performed By: #### B MP, CDP #### [facility] [address] [facility] [place] [address] Provider Relations Representative: Jeremías Donald MD MCV (RBC) [Entitic vol] 99.2 fL Normal 82.6-102.9 [facility] Comment on above: Performed By: #### B MP, CDP #### [facility] [address] [place] [address]. [place] [address] Provider Relations Representative: Jeremías Donald MD Monocytes (Bld) [#/Vol] 1.26 10*3/uL High 0.10-1.20 [facility] Comment on above: Performed By: #### B MP, CDP #### [facility] [place] [address] Provider Relations Representative: Jeremías Donald MD Monocytes/100 WBC (Bld) 11 % Normal 3-12 [facility] Comment on above: Performed By: #### B MP, CDP #### [facility] [facility] [place] [address] Provider Relations Representative: Jeremías Donald MD Neutrophil (Seg) 80 % High 36-65 [facility] Comment on above: Performed By: #### B MP, CDP #### [facility] [facility] [place] [address] Provider Relations Representative: Jeremías Donald MD NRBC Automated 0.0 per 100 WBC Normal 0.0 [facility] Comment on above: Performed By: #### B MP, CDP #### [facility] [address] [place] [address] Provider Relations Representative: Jeremías Donald MD Platelet mean volume (Bld) [Entitic vol] 10.0 fL Normal 8.1-13.5 [facility] Comment on above: Performed By: #### B MP, CDP #### [facility] [address] [place] [address] Provider Relations Representative: Jeremías Donald MD Platelets (Bld) [#/Vol] 203 10*3/uL Normal 138-453 [facility] Comment on above: Performed By: #### B MP, CDP #### [facility] [address] [place], [place] [address] [place] [address] Provider Relations Representative: Jeremías Donald MD RBC (Bld) [#/Vol] 3.99 10*6/uL Low 4.21-5.77 [facility] Comment on above: Performed By: #### B MP, CDP #### [facility] [place] [address] Provider Relations Representative: Jeremías Donald MD WBC (Bld) [#/Vol] 11.3 10*3/uL Normal 3.5-11.3 [facility] Comment on above: Performed By: #### B MP, CDP #### [facility] [facility] [place] [address] Provider Relations Representative: Jeremías Donald MD Auto Diff Performed NOT REPORTED Normal [facility] Comment on above: Performed By: #### B MP, CDP #### [facility] [place] [address] Provider Relations Representative: Jeremías Donald MD Platelets (Bld) [#/Vol] NOT REPORTED Normal [facility] Comment on above: Performed By: #### B MP, CDP #### [facility] [place] [address] Provider Relations Representative: Jeremías Donald MD RBC morphology finding Nom (Bld) NOT REPORTED Normal [facility] Comment on above: Performed By: #### B MP, CDP #### [facility] [address] [place] [address]. [place] [address] Provider Relations Representative: Jeremías Donald MD WBC Morphology NOT REPORTED Normal [facility] Comment on above: Performed By: #### B MP, CDP #### [facility] [address] [place] [address]. [place] [address] Provider Relations Representative: Jeremías Donald MD COVID-19on 09-15-2020 SARS-CoV-2 Not Detected Not Detected [place], [place] Comment on above: The specimen is NEGATIVE for SARS-CoV-2, the novel coronavirus associated with COVID-19. A negative result does not rule out COVID-19. This test has been authorized by the FDA under an Emergency Use Authorization (EUA) for use by authorized laboratories. [employer] SARS-CoV-2 Reagents for [employer] are designed to detect the virus that causes COVID-19 in patients with signs and symptoms of infection who are suspected of COVID-19. An individual without symptoms of COVID-19 and who is not shedding SARS-CoV-2 virus would expect to have a negative (not detected) result in this assay. Fact sheet for Healthcare Providers: https://www.fda.gov/media/168118/download Fact sheet for Patients: https://www.fda.gov/media/424918/download METHODOLOGY: RT-PCR SARS-CoV-2 [place] SARS-CoV-2, Rapid [place], [place] Source .NASOPHARYNGEAL SWAB [place] [id number] 09-15-2020 SARS-CoV-2 Not Detected Normal NOTDET [facility] Comment on above: Result Comment: The specimen is NEGATIVE for SARS-CoV-2, the novel coronavirus associated with COVID-19. A negative result does not rule out COVID-19. This test has been authorized by the FDA under an Emergency Use Authorization (EUA) for use by authorized laboratories. [employer] SARS-CoV-2 Reagents for [employer] are designed to detect the virus that causes COVID-19 in patients with signs and symptoms of infection who are suspected of COVID-19. An individual without symptoms of COVID-19 and who is not shedding SARS-CoV-2 virus would expect to have a negative (not detected) result in this assay. Fact sheet for Healthcare Providers: https://www.fda.gov/media/264402/download Fact sheet for Patients: https://www.fda.gov/media/818600/download METHODOLOGY: RT-PCR Performed By: #### C OVID #### [facility] [address] [place] [address] Provider Relations Representative: Jeremías Donald MD [address] [address] Provider Relations Representative: Rah Mccollum MD SARS-CoV-2 [facility] Comment on above: Performed By: #### C OVID #### [facility] [address] [place] [address] Provider Relations Representative: Jeremías Donald MD [address] [address] Provider Relations Representative: Rah Mccollum MD SARS-CoV-2,Rapid [facility] Comment on above: Performed By: #### C OVID #### [facility] [address] [place] [address] Provider Relations Representative: Jeremías Donald MD [address] [address] Provider Relations Representative: Rah Mccollum MD [id number] 09-14-2020 SARS-CoV-2 Source .NASOPHARYNGEAL SWAB Normal [facility] Comment on above: Performed By: #### C OVID #### [facility] [address] [place], [place] [id number] Provider Relations Representative: Jeremías Donald MD [facility] [place] [facility] [address] [place], [place] [id number] Provider Relations Representative: Rah Mccollum MD EKG 12 Leadon 09-02-2020 Atrial Rate 61 BPM [facility], [place] 66 degrees [facility] P-R Interval 168 ms [facility] Q-T Interval 406 ms [facility] QRS Duration 98 ms [facility] QTc Calculation (Bazett) 408 ms [facility] R [place] 27 degrees [facility] T [place] 51 degrees [facility] Ventricular Rate 61 BPM [facility], [place], Mhpn Incoming Ekg Results From [employer] [place] - 09/02/2020 8:25 AM EST Normal sinus rhythm Possible Anterior infarct , age undetermined Abnormal ECG When compared with ECG of 02-APR-2018 10:00, Minimal criteria for Inferior infarct are no longer Present [place] Normal sinus rhythm Possible Anterior infarct , age undetermined Abnormal ECG When compared with ECG of 02-APR-2018 10:00, Minimal criteria for Inferior infarct are no longer Present [place] MRSA DNA Probe, Nasalon 08-16 MRSA, DNA, Nasal NEGATIVE: MRSA DNA not detected by nucleic acid amplification. NEGATIVE: MRSA DNA not detected by nucleic acid amplificati [place] Comment on above: Results should be used as an adjunct to nosocomial control efforts to identify patients needing enhanced precautions. The test is not intended to identify patients with staphylococcal infections. Results should not be used to guide or monitor treatment for MRSA infections. Specimen Description .NASAL SWAB [place] MRSA, DNA, Nasalon 0 MRSA, DNA, Nasal NEGATIVE: MRSA DNA not detected by nucleic acid amplification. Normal NMRSAA [facility] Comment on above: Result Comment: Results should be used as an adjunct to nosocomial control efforts to identify patients needing enhanced precautions. The test is not intended to identify patients with staphylococcal infections. Results should not be used to guide or monitor treatment for MRSA infections. Performed By: #### M RSANO #### [facility] [address] [place], [place] [id number] Provider Relations Representative: Jeremías Donald MD [facility] [place] [facility] [address] [place], [place] [id number] Provider Relations Representative: Rah Mccollum MD BUN & Creatinineon 0 Creatinine [Mass/Vol] 1.06 mg/dL 0.7 - 1.2 mg/dL [place] GFR >60 >60 mL/min [place] GFR Non- >60 >60 mL/min [place] GFR/1.73 sq M predicted among non-blacks MDRD (S/P/Bld) [Vol rate/Area] NOT REPORTED [place] GFR/1.73 sq M predicted among non-blacks MDRD (S/P/Bld) [Vol rate/Area] [place] Comment on above: Average GFR for 70 o r more years old: 75 mL/min/1.73sq m Chronic Kidney Disease: <60 mL/min/1.73sq m Kidney failure: <15 mL/min/1.73sq m eGFR calculated using average adult body mass. Additional eGFR calculator available at: http://www.[employer]_crcl_2011.htm Urea nitrogen [Mass/Vol] 23 mg/dL 8 - 23 mg/dL [place] BUN + Creatinineon 0 (cont.) Normal [facility] Comment on above: Result Comment: Aver age GFR for 70 or more years old: 75 mL/min/1.73sq m Chronic Kidney Disease: <60 mL/min/1.73sq m Kidney failure: <15 mL/min/1.73sq m eGFR calculated using average adult body mass. Additional eGFR calculator available at: http://www.[employer]/multiple_crcl_2011.htm Performed By: #### C DP, BUNCRT, LYTE #### [facility] [address] [place] [address] Provider Relations Representative: Jeremías Donald MD Creatinine [Mass/Vol] 1.06 mg/dL Normal 0.70-1.20 [facility] Comment on above: Performed By: #### C DP, BUNCRT, LYTE #### [facility] [address] [facility] [place] [address] Provider Relations Representative: Jeremías Donald MD GFR, Amer >60 Normal >60 [facility] Comment on above: Performed By: #### C DP, BUNCRT, LYTE #### [facility] [address] [facility] [place] [address] Provider Relations Representative: Jeremías Donald MD GFR,non Amer >60 Normal >60 [facility] Comment on above: Performed By: #### C DP, BUNCRT, LYTE #### [facility] [address] [facility] [place] [address] Provider Relations Representative: Jeremías Donald MD Urea nitrogen [Mass/Vol] 23 mg/dL Normal 8-23 [facility] Comment on above: Performed By: #### C DP, BUNCRT, LYTE #### [facility] [place] [address] Provider Relations Representative: Jeremías Donald MD Staging: NOT REPORTED Normal [facility] Comment on above: Performed By: #### C DP, BUNCRT, LYTE #### [facility] [address] [place] [address]. [place] [address] Provider Relations Representative: Jeremías Donald MD CBC Auto Differentialon 08-16 Basophils (Bld) [#/Vol] 0.04 10*3/uL [place] Basophils/100 WBC (Bld) 1 % 0 - 2 % [place] Differential Type NOT REPORTED [place] Eosinophils (Bld) [#/Vol] 0.14 10*3/uL [place] Eosinophils/100 WBC (Bld) 2 % 1 - 4 % [place] Erythrocyte distribution width (RBC) [Ratio] 12.3 % 11.8 - 14.4 % [place] Hematocrit (Bld) [Volume fraction] 46.2 % 40.7 - 50.3 % [place] Hemoglobin (Bld) [Mass/Vol] 14.7 g/dL 13 - 17 g/dL [place] Immature granulocytes (Bld) [#/Vol] 0.01 10*3/uL [place] Immature granulocytes (Bld) [#/Vol] 0 % 0 [place] Interpretation and review of laboratory results Abnormal [place] Lymphocytes (Bld) [#/Vol] 1.43 10*3/uL [place] Lymphocytes/100 WBC (Bld) 19 % Low 24 - 43 % [place] MCH (RBC) [Entitic mass] 31.8 pg 25.2 - 33.5 pg [place] MCHC (RBC) [Mass/Vol] 31.8 g/dL 28 - 38 g/dL [place] MCV (RBC) [Entitic vol] 100.0 fL 82.6 - 102.9 fL [place] Monocytes (Bld) [#/Vol] 0.53 10*3/uL [place] Monocytes/100 WBC (Bld) 7 % 3 - 12 % [place] Platelet mean volume (Bld) [Entitic vol] 9.5 fL 8.1 - 13.5 fL [place] Platelets (Bld) [#/Vol] 233 10*3/uL [place] Platelets (Bld) [#/Vol] NOT REPORTED [place] RBC (Bld) [#/Vol] 4.62 10*6/uL 4.21 - 5.77 m/uL [place] RBC morphology finding Nom (Bld) NOT REPORTED [place] Segmented neutrophils/100 WBC (Bld) 71 % High 36 - 65 % [place] Segs Absolute 5.25 [place] WBC (Bld) [#/Vol] 7.4 10*3/uL [place] WBC (Bld) [#/Vol] NOT REPORTED 0.0 per 100 WBC [place] WBC Morphology NOT REPORTED [place] CBC with Diffon 09-01-2020 Abs. Basophil 0.04 k/uL Normal 0.00-0.20 [facility] Comment on above: Performed By: #### C DP BUNCRT, LYTE #### [facility] [address] [place] [address] Provider Relations Representative: Jeremías Donald MD Abs.Imm.Granulocyte 0.01 k/uL Normal 0.00-0.30 [facility] Comment on above: Performed By: #### C DP BUNCRT, LYTE #### [facility] [address] [place] [address] Provider Relations Representative: Jeremías Donald MD Abs.Neutrophil (Seg) 5.25 k/uL Normal 1.50-8.10 [facility] Comment on above: Performed By: #### C DP BUNCRT, LYTE #### [facility] [address] [place] [address] Provider Relations Representative: Jeremías Donald MD Basophils/100 WBC (Bld) 1 % Normal 0-2 [facility] Comment on above: Performed By: #### C DP BUNCRT, LYTE #### [facility] [address] [place] [address] Provider Relations Representative: Jeremías Donald MD Eosinophils (Bld) [#/Vol] 0.14 10*3/uL Normal 0.00-0.44 [facility] Comment on above: Performed By: #### C DP, BUNCRT, LYTE #### [facility] [address] [facility] [place] [address] Provider Relations Representative: Jeremías Donald MD Eosinophils/100 WBC (Bld) 2 % Normal 1-4 [facility] Comment on above: Performed By: #### C DP, BUNCRT, LYTE #### [facility] [address] [facility] [place] [address] Provider Relations Representative: Jeremías Donald MD Erythrocyte distribution width (RBC) [Ratio] 12.3 % Normal 11.8-14.4 [facility] Comment on above: Performed By: #### C DP, BUNCRT, LYTE #### [facility] [address] [place] [address]. [place] [address] Provider Relations Representative: Jeremías Donald MD Hematocrit (Bld) [Volume fraction] 46.2 % Normal 40.7-50.3 [facility] Comment on above: Performed By: #### C DP, BUNCRT, LYTE #### [facility] [place] [address] Provider Relations Representative: Jeremías Donald MD Hemoglobin (Bld) [Mass/Vol] 14.7 g/dL Normal 13.0-17.0 [facility] Comment on above: Performed By: #### C DP, BUNCRT, LYTE #### [facility] [place] [address] Provider Relations Representative: Jeremías Donald MD Immature granulocytes (Bld) [#/Vol] 0 % Normal 0 [facility] Comment on above: Performed By: #### C DP, BUNCRT, LYTE #### [facility] [facility] [place] [address] Provider Relations Representative: Jeremías Donald MD Lymphocytes (Bld) [#/Vol] 1.43 10*3/uL Normal 1.10-3.70 [facility] Comment on above: Performed By: #### C SHAY GRESHAMCRT, LYTE #### [facility] [address] [place] [address] Provider Relations Representative: Jeremías Donald MD Lymphocytes/100 WBC (Bld) 19 % Low 24-43 [facility] Comment on above: Performed By: #### C MP BUNCRT, LYTE #### [facility] [address] [place] [address] Provider Relations Representative: Jeremías Donald MD MCH (RBC) [Entitic mass] 31.8 pg Normal 25.2-33.5 [facility] Comment on above: Performed By: #### C MP BUNCRT, LYTE #### [facility] [address] [place] [address] Provider Relations Representative: Jeremías Donald MD MCHC (RBC) [Mass/Vol] 31.8 g/dL Normal 28.0-38.0 [facility] Comment on above: Performed By: #### C MP BUNCRT, LYTE #### [facility] [address] [place] [address] Provider Relations Representative: Jeremías Donald MD MCV (RBC) [Entitic vol] 100.0 fL Normal 82.6-102.9 [facility] Comment on above: Performed By: #### C MP BUNCRT, LYTE #### [facility] [address] [place] [address] Provider Relations Representative: Jeremías Donald MD Monocytes (Bld) [#/Vol] 0.53 10*3/uL Normal 0.10-1.20 [facility] Comment on above: Performed By: #### C DP, BUNCRT, LYTE #### [facility] [address] [place] [address] Provider Relations Representative: Jeremías Donald MD Monocytes/100 WBC (Bld) 7 % Normal 3-12 [facility] Comment on above: Performed By: #### C DP, BUNCRT, LYTE #### [facility] [place] [address] Provider Relations Representative: Jeremías Donald MD Neutrophil (Seg) 71 % High 36-65 [facility] Comment on above: Performed By: #### C DP, BUNCRT, LYTE #### [facility] [place] [address] Provider Relations Representative: Jeremías Donald MD Platelet mean volume (Bld) [Entitic vol] 9.5 fL Normal 8.1-13.5 [facility] Comment on above: Performed By: #### C DP, BUNCRT, LYTE #### [facility] [address] [place], [place] [address] [facility] [place] [address] Provider Relations Representative: Jeremías Donald MD Platelets (Bld) [#/Vol] 233 10*3/uL Normal 138-453 [facility] Comment on above: Performed By: #### C DP, BUNCRT, LYTE #### [facility] [facility] [place] [address] Provider Relations Representative: Jeremías Donald MD RBC (Bld) [#/Vol] 4.62 10*6/uL Normal 4.21-5.77 [facility] Comment on above: Performed By: #### C DP, BUNCRT, LYTE #### [facility] [address] [place], [place] [address] [place] [address] Provider Relations Representative: Jeremías Donald MD WBC (Bld) [#/Vol] 7.4 10*3/uL Normal 3.5-11.3 [facility] Comment on above: Performed By: #### C DP, BUNCRT, LYTE #### [facility] [place] [address] Provider Relations Representative: Jeremías Donald MD Auto Diff Performed NOT REPORTED Normal [facility] Comment on above: Performed By: #### C DP, BUNCRT, LYTE #### [facility] [address] [place] [address] Provider Relations Representative: Jeremías Donald MD NRBC Automated NOT REPORTED Normal 0.0 [facility] Comment on above: Performed By: #### C DP, BUNCRT, LYTE #### [facility] [address] [place] [address] Provider Relations Representative: Jeremías Donald MD Platelets (Bld) [#/Vol] NOT REPORTED Normal [facility] Comment on above: Performed By: #### C DP, BUNCRT, LYTE #### [facility] [address] [place] [address]. [place] [address] Provider Relations Representative: Jeremías Donald MD RBC morphology finding Nom (Bld) NOT REPORTED Normal [facility] Comment on above: Performed By: #### C DP, BUNCRT, LYTE #### [facility] [address] [place] [address]. [place] [address] Provider Relations Representative: Jeremías Donlad MD WBC Morphology NOT REPORTED Normal [facility] Comment on above: Performed By: #### C DP, BUNCRT, LYTE #### [facility] [address] [place] [address]. [place] [address] Provider Relations Representative: Jeremías Donald MD Electrolyte Panelon 09-01-20 Anion gap [Moles/Vol] 10 mmol/L 9 - 17 mmol/L [facility] Chloride [Moles/Vol] 102 mmol/L 98 - 107 mmol/L [place] CO2 [Moles/Vol] 27 mmol/L 20 - 31 mmol/L [place] Potassium [Moles/Vol] 4.2 mmol/L 3.7 - 5.3 mmol/L [facility] Sodium [Moles/Vol] 139 mmol/L 135 - 144 mmol/L [place] Electrolyteson 09-01-2020 Anion gap [Moles/Vol] 10 mmol/L Normal - [facility] Comment on above: Performed By: #### C MP BUNCRT, LYTE #### [facility] [address] [place] [address] Provider Relations Representative: Jeremías Donald MD Chloride [Moles/Vol] 102 mmol/L Normal 98-107 [facility] Comment on above: Performed By: #### C MP BUNCRT, LYTE #### [facility] [address] [facility] [place] [address] Provider Relations Representative: Jeremías Donald MD CO2 [Moles/Vol] 27 mmol/L Normal 20-31 [facility] Comment on above: Performed By: #### C MP BUNCRT, LYTE #### [facility] [address] [facility] [place] [address] Provider Relations Representative: Jeremías Donald MD Potassium [Moles/Vol] 4.2 mmol/L Normal 3.7-5.3 [facility] Comment on above: Performed By: #### C MP BUNCRT, LYTE #### [facility] [address] [place] [address] Provider Relations Representative: Jeremías Donald MD Sodium [Moles/Vol] 139 mmol/L Normal 135-144 [facility] Comment on above: Performed By: #### C MP BUNCRT LYTE #### [facility] [address] [place] [address] Provider Relations Representative: Jeremías Donald MD MRSA, DNA, Nasalon 0 Specimen Description .NASAL SWAB Normal [facility] Comment on above: Performed By: #### M RSANO #### [facility] [address] [place] [address] Provider Relations Representative: Jeremías Donald MD [address] [address] Provider Relations Representative: Rah Mccollum MD TYPE AND SCREENon 09-01-2020 ABO/Rh Positive [place] Arm Band Number [id number] [place], [place] Expiration Date 09/23/2020,2359 [place], [place] Type + Screenon 09-01-2020 Type + Screen Sample Expiration 09/23/2020,2359 Arm Band Number [id number] ABO/Rh(D) O POSITIVE Antibody Screen NEGATIVE Normal [facility] Comment on above: Performed By: #### T YS #### [facility] [address] [place] [address] Provider Relations Representative: Jeremías Donald MD Vital Signs Date Time Vital Sign Value Performing Clinician Faci lity 09-22-2020 11:33-0500 Body Temperature 98.8 [degF] [facility] 09-22-2020 11:33-0500 BP Diastolic 63 mm[Hg] [place], [place] 09-22-2020 11:33-0500 BP Systolic 129 mm[Hg] [place] 09-22-2020 11:33-0500 Pulse (Heart Rate) 65 /min [place] 09-22-2020 11:33-0500 Pulse Oximetry 97 % [place] 09-22-2020 11:33-0500 Respiratory Rate 17 /min Kareem Diaz [facility], [place] 09-20-2020 06:08-0500 BMI (Body Mass Index) 23.63 kg/m2 [facility], [place] 09-20-2020 06:08-0500 Body weight 70.5 kg Kareem Diaz [facility] , [place] 09-20-2020 06:08-0500 Height 172.7 cm [facility] [place] 09-01-2020 11:37-0500 BMI (Body Mass Index) 23.63 kg/m2 [address], [place] 09-01-2020 11:37-0500 Body Temperature 97 [degF] [address] 09-01-2020 11:37-0500 Body weight 70.[address] 09-01-2020 11:37-0500 BP Diastolic 65 mm[Hg] [address] 09-01-2020 11:37-0500 BP Systolic 135 mm[Hg] [address] , [place] 09-01-2020 11:37-0500 Height 172.[address] 09-01-2020 11:37-0500 Pulse (Heart Rate) 62 /min [address] 09-01-2020 11:37-0500 Pulse Oximetry 97 % [address] 09-01-2020 11:37-0500 Respiratory Rate 16 /min [address] Encounters Encounter Date Encounter Type Care Provider Facility Start: 02-13-[address] CHARITY YIN . Facili ty:[facility] Start: 11-27-2022 End: 11-28-[address] CHARITY YIN . Facility:[facility] Start: 11-19-2022 End: 11-20-[address] CHARITY YIN . Facility:[facility] Start: 11-16-2022 End: 11-16-[address] CHARITY YIN . Facility:[facility] Start: 11-14-2022 End: 11-15-[address] CHARITY YIN . Facility:[facility] Start: 09-11-2022 End: 09-11-[address] CHARITY YIN . Facility: Start: 07-05-2022 End: 07-06-2022 ambulatory [facility] Start: 09-20-2020 End: 09-22-2020 Evaluation and management of inpatient [facility] Start: 09-20-2020 End: 09-22-2020 Evaluation and management of inpatient Kareem Diaz Work Phone: [facility] Comment on above: Acute postoperative pain (Primary Dx); Localized osteoarthritis of right knee Start: 09-14-2020 End: 09-15-2020 Patient encounter procedure [facility] Start: 09-14-2020 End: 09-14-2020 Subsequent hospital visit by physician Sarah Beth Covid Screening Schedule [facility] Covid Screening Comment on above: Preop testing (Prima ry Dx) Start: 09-01-2020 End: 09-06-2020 Patient encounter procedure [facility] Start: 09-01-2020 End: 09-05-2020 Subsequent hospital visit by physician Brandie Diggs 2 [facility] PRE-ADMIT TESTING Start: 05-13-2017 End: 05-14-2017 Ambulatory DEFAULT PHYSICIAN Facility:[facility] Procedures Date Procedure Procedure Detail Performing Clinician Start: 11-14-[address] LIBERTAD YIN . Comment on above: Performed By: #### V ITAD, PSASC ####[facility] [address] [place], [place] [address]XwCarolyn Peters Start: 09-22-2020 Basic metabolic pane l calcium total Adali D Delgrosso Work Phone: Start: 09-22-2020 Blood count complete auto&auto difrntl wbc Adali D Delgrosso Work Phone: Start: 09-20-2020 End: 09-20-2020 Arthrp kne condyle&platu medial&lat compartments Kareem Diaz Work Phone: Start: 09-14-2020 COVID-19 Hai Rehana regui Work Phone: Start: 09-01-2020 Blood count complete auto&auto difrntl wbc CHARITY HOY Start: 09-01-2020 BUN AND CREATININE BENJAMÍN LAS HOY Start: 09-01-2020 Electrolyte panel DOUGL HOY Start: 09-01-2020 TYPE AND SCREEN CHARITY HOY Start: 09-01-2020 Iadna s aureus methi cillin resist amp probe tq CHARITY HOY Start: 09-01-2020 Ecg routine ecg w/le ast 12 lds w/i&r CHARITY HOY Start: 09-01-2020 EKG REPORT CHARITY HO Y Start: 09-01-2020 Antibody screen Sta 2 Start: 09-01-2020 Assay of urea nitrog en quantitative Hermela Tezera Work Phone: Start: 09-01-2020 Blood count complete auto&auto difrntl wbc Hermela Tezera Work Phone: Start: 09-01-2020 Blood typing serologic abo Hermela Tezera Work Phone: Start: 09-01-2020 Electrolyte panel Suzy la Tezera Work Phone: Start: 09-01-2020 Iadna s aureus methi cillin resist amp probe tq Kareem Diaz Work Phone: Start: 09-01-2020 Ecg routine ecg w/le ast 12 lds trcg only w/o i&r Hermela Tezera Work Phone: Start: 09-01-[address] [facility] Scanni ng Plan of Treatment Date Care Activity Detail Author Start: 01-11-2030 DTaP/Tdap/Td vaccine (2 - Td) DTaP/Tdap/Td vaccine (2 - Td) [place] Start: 09-20-2020 End: 09-20-2020 Hospital Encounter [facility] Comment on above: RIGHT KNEE TOTAL ART HROPLASTY- BIOMET Start: 09-14-2020 End: 09-14-2020 Appointment 09/14/2020 Appointment Lab [facility] Covid Screening Start: 09-10-2020 End: 09-10-2021 COVID-19 COVID-19 Lab Routine Preop testing Expected: 09/10/2020, Expires: 09/10/2021 [place] Comment on above: Expected: 09/10/2020 , Expires: 09/10/2021 Start: 2000 Screening for malign ant neoplasm of colon Colon cancer screen colonoscopy [place], [place] Start: 2000 Shingles Vaccine (1 of 2) Shingles Vaccine (1 of 2) [place], [place] Start: 1960 Lipid panel Lipid screen [place], [place] Start: 1950 Abdominal aortic aneurysm screening AAA screen [place], [place] Start: 1950 Hepatitis C screening Hepatitis C sc reen [place], [place] Basic metabolic 2000 panel Basic Metabolic Panel Lab STAT Tomorrow AM until discontinued starting 09/22/2020, 1 completed [place] Comment on above: Tomorrow AM until di scontinued starting 09/22/2020, 1 completed CBC Auto Differential CBC Auto D ifferential Lab STAT Tomorrow AM until discontinued starting 09/22/2020, 1 completed [place] Comment on above: Tomorrow AM until di scontinued starting 09/22/2020, 1 completed Oxygen therapy [[facility] Data Set] Initiate Oxygen Therapy Protocol Respiratory Care Routine Daily until discontinued starting 09/20/2020 [place] Comment on above: Daily until disconti nued starting 09/20/2020 Spirometry panel Incentive ileana metry Respiratory Care Routine Every 2hr while awake until discontinued starting 09/20/2020 [place] Comment on above: Every 2hr while awak e until discontinued starting 09/20/2020 Payers Date Payer Category Payer Medicare [id number] 1959 Unknown [id number]. [id number] 1950 Unknown [id number] 2.16.8 [id number] 1950 Unknown [id number] 2.16.8 [id number] 1950 Unknown [id number] 2.16.8 [id number] 1950 Unknown [id number] 2.16.84 [id number] 1950 Unknown [id number] 2.16.84 [id number] 1950 Unknown [id number] 2.16.84 [id number] 1950 Unknown [id number] 2.16.84 [id number] 1950 Unknown [id number] 2.16.84 [id number] 1950 Unknown [id number] 2.16.84 [id number] Unknown Social History Date Type Detail Facility Start: 09-01-2020 End: 09-20-2020 Tobacco smoking status NHIS Former sm[place] End: 03-18-1995 History of tobacco use Current [place] Start: 09-01-2020 End: 09-20-2020 Tobacco use and exposure Former user [place] Start: 09-01-2020 End: 09-20-2020 Alcohol intake Current non-drinker of alcohol (finding) [place] Sex Assigned At Not on file [place] Exposure to SARS-CoV -2 (event) Not sure [place] Medical Equipment Procedure Code Equipment Code Equipment Origin al Text Equipment Identifier Dates Roscoe Sut Healicoil W/3 Ultrabraid 5.5mm [id number] Start: 04-01-2018 Roscoe Sut Healicoil W/3 Ultrabraid 5.5mm [id number] Start: 04-01-2018 Roscoe Sut Healicoil W/3 Ultrabraid 5.5mm [id number] Start: 04-01-2018 Dup Use [id number] Impl Knee Psn All Poly Pat Ply 29mm [id number] Start: 09-20-2020 Psn Tib Stm 5 De g Sz F R [id number] Start: 09-20-2020 Psn Mc Ve Asf R 10mm 8-11 Ef [id number] Start: 09-20-2020 Impl Psn Fem Cp Cmt Ccr Std Sz8r [id number] Start: 09-20-2020 Cement Bne 40gm Hi Visc Radpq For Rev Surg [id number] Start: 09-20-2020 Comment on above: Description: LOT # S ROXANE Screw Bne L25mm Dia2.5mm Knee Full Thrd Hex Fem Persona [id number] Start: 09-20-2020 Clinical Note 02-13-2023 Note Date & Type Note Facility 02-13-2023 Note PROCEDURE: XR ELBOW RT MIN 3 VIEWS DATE: 02/13/2023 12:15 PM CDT COMPARISONS: None CLINICAL INDICATION: Elbow joint pain FINDINGS: There is no evidence of fractures or other acute osseous abnormalities. There is a spur off the proximal ulna at the attachment of the triceps. This has a chronic appearance. There is a 9 mm exostosis lateral epicondyle. This has a chronic appearance and does not show any evidence of aggressive process. There is no elbow joint effusion. IMPRESSION: Right elbow radiographs show no evidence of significant abnormalities. Electronically authenticated by: GENNY DAVIS Date: 2023-02-13 14:[address] [facility] Clinical Note 11-19-2022 Note Date & Type Note Facility 11-19-2022 Note PROCEDURE: XR KNEE L T 4V or > COMPARISON: None. HISTORY: Arthritis of left knee FINDINGS: BONES:No acute fracture or dislocation. Moderate tricompartmental osteoarthropathy with marginal osteophyte formation. Narrowing of the medial joint space. SOFT TISSUES:Negative. No visible soft tissue swelling. EFFUSION:Moderate suprapatellar joint effusion OTHER: Negative. IMPRESSION: Moderate osteoarthritis with joint effusion Electronically authenticated by: ANI HARDING Date: 2022-11-19 15:[address] [facility] Progress note 07-05-2022 Note Date & Type Note Facility 07-05-2022 Note Orthopedic Surgery Subjective Pain of the Left Wrist and Pain of the Right Wrist 07/05/22 Levon Roach is a 72 y.o. year old male presenting for evaluation of bilateral wrists. He has had chronic pain in his bilateral the wrist for numerous years. He is not aware of any specific injury to his wrist but does believe that he fell long distance onto them many many years ago but never had any pain at that time. 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 He did see an outside surgeon who told him he needed to have a bone removed in his wrist. He complains of some masses on the dorsal aspect of his wrist. Patient History No past surgical history on file. No past medical history on file. Objective General: Body mass index is 22.81 kg/m???. No acute distress, comfortable Respiratory: Unlabored breathing with normal rate, no cough Cardiovascular: Warm well perfused extremities Psych: Appropriate mood behavior Right Hand: Inspection- no ecchymosis, no erythema, no deformity Tender to palpation over SL joint Patient has a dorsal ganglion cyst over the wrist at the level of the SL joint WF 25, WE 20 Thumb: normal A1 fidencio and AROM, Index finger: normal A1 fidencio and AROM, Long finger: normal A1 fidencio and AROM, Ring finger: normal A1 fidencio and AROM, and Small finger: normal A1 fidencio and AROM Strength: biztalk architect 5/5, thumb 5/5, interossei 5/5 Sensation: intact over median, ulnar, and radial nerve distributions Tinel (-) at carpal tunnel Carpal compression test (-) Martha's test (-) Cardiovascular: Well-perfused digits Left Hand: Inspection- no ecchymosis, no edema, no effusion Tender to palpation over SL ligament WF 30, WE 20 Thumb: normal A1 fidencio and AROM, Index finger: normal A1 fidencio and AROM, Long finger: normal A1 fidencio and AROM, Ring finger: normal A1 fidencio and AROM, and Small finger: normal A1 fidencio and AROM Strength: biztalk architect 5/5, thumb 5/5, interossei 5/5 Sensation: intact over median, ulnar, and radial nerve distributions Tinel (-) at carpal tunnel Carpal compression test (-) Martha's test (-) Cardiovascular: Well-perfused digits Imaging personally reviewed: X-rays of the bilateral wrists reviewed and 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 Right is worse than left with quite a bit of extension of the lunate he has radioscaphoid arthritis and capitate lunate arthritis Assessment/Plan Levon Roach is a 72 y.o. 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 This was thoroughly discussed with the patient and the procedure was reviewed completely. He would like to proceed with the right sometime next year as he is not ready for surgery as he has a family member who just had surgery. Call or come in for another appointment to proceed with the right scaphoid excision with 4 corner fusion. Rosy Baca MD By using the attestations below, the signing clinician agrees that I have read and verify that the documentation has been personally reviewed by me and ensure that the documentation accurately reflects the encounter. GC: I personally saw this patient on the day of the encounter, performed the jarvis portion(s) of the service and participated in the management and confirm the resident's documentation. Please note there may be an additional personal documentation from me. [facility] Summary Purpose Family History No Family History Records FoundNo Family History Records FoundNo Family History Records FoundNo Family History Records Found Advance Directives No Advanced Directives Records FoundDocuments on File Type Date Recorded Patient Piano Teacher Expl anation ACP-Advance Directive ACP-Power of Home Health Billing Specialist Documents on File Type Date Recorded Patient Piano Teacher Expl anation ACP-Advance Directive ACP-Power of Home Health Billing Specialist Latest Code Status on File Code Status Date Activated Date Inactivated Comments Full Code 09/20/2020 11:51 AM History of Present Illness * Nasreen Bhatt RN - 09/02/2020 2:46 PM EST Left voice message with [facility]or for the request of medical clearance and asked that they call back that they received the message. * Nasreen Bhatt RN - 09/01/2020 11:00 AM EST Left voicemessage with [facility] regarding the request for cardiac clearance * Nasreen Bhatt RN - 09/01/2020 11:00 AM EST Patient watched video Understanding Nerve Blocks with understanding documented in this encounter* Jeremías Aguirre RN - 09/22/2020 4:10 PM EST Pt discharged to home in stable condition with belongings Discharge instructions given Meds To Beds medication at bedside Pt denies having any further questions at this time Locked up home medication(s)/personal items given to patient at discharge Patient/family state they have everything they were admitted with. Dressing change supplies and hibiclens sent home with patient * Jeremías Aguirre RN - 09/22/2020 2:45 PM EST Patient refusing SNF and will dishcharge to home with C. , Hai. Notified. * Carolina Ervin PT - 09/22/2020 9:48 AM EST Physical Therapy Facility/Department: [facility] Daily Treatment Note NAME: Levon Roach : 1950 Date of Service: 09/22/2020 Discharge Recommendations: Subacute/Intermediate Facility(if declining, recommend PT) RN reports patient is medically stable for therapy treatment this date. Chart reviewed prior to treatment and patient is agreeable for therapy. All lines intact and patient positioned comfortably at end of treatment. All patient needs addressed prior to ending therapy session. EMMA Allen, present during gait training and mobility, educating pt on PT and d/c planning. Assessment Body structures, Functions, Activity limitations: Decreased functional mobility ;Decreased ROM;Decreased strength;Decreased balance;Increased pain;Decreased safe awareness;Decreased cognition Assessment: Pt will benefit from PT to address stregnth, ROM, balance, and safe mobility. Pt impulsive this date and stated he is scared to put weight through RLE. Pt very guarded this date, increasing gait deviations. Recommend SNF due to safety concerns if pt were to return home as he could benefit from SNF to improve ROM and gait deviations. If pt declining SNF, recommend HH PT. Specific instructions for Next Treatment: gait, stairs Prognosis: Good Clinical Presentation: evolving PT Education: Transfer Training;Equipment;PT Role;Functional Mobility Training;Plan of Care;GeneralSafety;Weight-bearing Education;Gait Training;Home Exercise Program REQUIRES PT FOLLOW UP: Yes Activity Tolerance Activity Tolerance: Patient limited by pain;Patient limited by cognitive status;Patient limited by fatigue Activity Tolerance: Attempted to see pt boaz in morning and refused, but after education with RN, pt agreeable to PT. Very painful when starting session and then pain decreased per pt. Patient Diagnosis(es): The primary encounter diagnosis was Acute postoperative pain. A diagnosis ofLocalized osteoarthritis of right knee was also pertinent to this visit. has a past medical history of Anginal pain (HCC), Arthritis, Fibromyalgia, Hyperlipidemia, [place] (myocardial infarction) (HCC), Mood swings, Prolonged emergence from general anesthesia, and Sinus tachycardia. has a past surgical history that includes transesophageal echocardiogram (12/19/2015); Colonoscopy;Leg Surgery; cervical fusion; Ankle surgery; Coronary artery bypass graft (2015); Rotator cuff repair (Left, 04/01/2018); pr shldr arthroscop,surg,w/rotat cuff repr (Left, 04/01/2018); Cardiac catheterization (12/19/2015); Carpal tunnel release (Bilateral); and Total knee arthroplasty (Right, 09/20/2020). Restrictions Restrictions/Precautions Restrictions/Precautions: Weight Bearing, Fall Risk, Up as Tolerated, General Precautions, SurgicalProtocols Required Braces or Orthoses?: No Lower Extremity Weight Bearing Restrictions Right Lower Extremity Weight Bearing: Weight Bearing As Tolerated Position Activity Restriction Other position/activity restrictions: full WBAT RLE, bilat thigh high stockings, elevate affected extremity Subjective General Chart Reviewed: Yes Response To Previous Treatment: Patient with no complaints from previous session. Family / Caregiver Present: No Subjective Subjective: At beginning of session, pt stated pain was 7/10 and then was 3/10 after ambulation. General Comment Comments: Pt agreeable to PT after education from RN. Orientation Orientation Overall Orientation Status: Impaired Orientation Level: Disoriented to place;Disoriented to time;Oriented to situation;Oriented to person(pt knew he was in the hospital but unable to state which one) Cognition Cognition Overall Cognitive Status: Exceptions Arousal/Alertness: Appropriate responses to stimuli Following Commands: Follows one step commands with repetition;Follows one step commands with increased time;Inconsistently follows commands Attention Span: Difficulty dividing attention;Attends with cues to redirect Memory: Decreased short term memory;Decreased recall of recent events Safety Judgement: Decreased awareness of need for safety;Decreased awareness of need for assistance Problem Solving: Assistance required to identify errors made;Assistance required to generate solutions;Decreased awareness of errors;Assistance required to correct errors made;Assistance required to implement solutions Insights: Decreased awareness of deficits Initiation: Requires cues for all Sequencing: Requires cues for all Cognition Comment: Pt had difficulty processing/following commands, did not know what hospital he was at. Pt did not remember PT session from yesterday and was asking what day it was upon arriving. Objective Bed mobility Comment: Pt sitting on EOB upon arrival and returned to sitting in chair after session. Transfers Sit to Stand: Minimal Assistance;2 Person Assistance(toilet transfer x1 with max cues for use of grab bars) Stand to sit: Minimal Assistance;2 Person Assistance Bed to Chair: Minimal assistance;2 Person Assistance Comment: Upon first sit<>stand pt was maxA to stand, requiring max cues for hand placement and to WB through RLE. Pt very unsteady upon standing, with cues to push through arms for assist. Pt demo'd multiple sit<>stand tranfers with Muna/modA due to increased pain. Very flexed forward position with all standing and decreased knee extension with standing. Ambulation Ambulation?: Yes Ambulation 1 Surface: level tile Device: Rolling Walker Assistance: Moderate assistance;2 Person assistance Quality of Gait: Pt demo'd poor gait quality with MAX cues for heel to toe pattern and proper posture. Pt is very guarded with movement on RLE, fearful of putting weight through RLE. Gait Deviations: Slow Jody;Increased ANA;Decreased step length;Decreased step height Distance: 15ft x2, 8ft x1, 6ft x1 Comments: ModA x2 required due to pt being impulsive and not listening to cues/instructions. Pre-gait was assessed with MAX cues and demo for pt in order to understand what was being asked. During weight shifts, tactile cueing for RLE and knee extension was required. Pt demo's increased hip flexion, and forward trunk increasing fall risk. ModA x2 for RW sequencing and for safety. Stairs/Curb Stairs?: Yes Stairs # Steps : 2 Stairs Height: 6 Rails: Bilateral Device: No Device Assistance: Moderate assistance;2 Person assistance Comment: Educated pt on up with the good and down with the bad. ModA due to shakiness and increasedpain during stair training. Pt demo'd very flexed posture during gait with max cues for correction.Pt has no handrails to steps entering home. Attempted to practice steps as if at home, and pt was unable to complete without assist from handrail. Very shakey and unsteady during stair training. Balance Posture: Good Sitting - Static: Good Sitting - Dynamic: Good Standing - Static: Good;-(RW; knee immobilizer) Standing - Dynamic: Fair;+(BUE support from RW) Exercises Quad Sets: 20 Gluteal Sets: 20 Ankle Pumps: 20 Comments: AAROM/PROM of knee flexion and extension x20. Cues required for pt to relax and focus on straightening knee as pt is able to only perform slight LAQ. OutComes Score [facility] Score [facility] Inpatient Mobility Raw Score : 17 (09/22/20946) [facility] Inpatient T-Scale Score : 42.13 (09/22/20946) Mobility Inpatient [facility] 0-100% Score: 50.57 (09/22/20946) Mobility Inpatient [facility] G-Code Modifier : CK (09/22/20946) Goals Short term goals Time Frame for Short term goals: 5 visits: Short term goal 1: Pt. to be indep with bed mob. 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 LE as needed Short term goal 2: Pt. to be indep with sit<>stand transfers with RW Short term goal 3: Pt. to be indep with gait with RW, 100ft. Short term goal 4: Pt. to safely negotiate 2 steps to prepare for d/c home Short term goal 5: Pt. to be indep with TKA HEP Patient Goals Patient goals : molina again Plan Plan Times per week: twice daily/ 7 days/wk Specific instructions for Next Treatment: gait, stairs Current Treatment Recommendations: Strengthening, ROM, Balance Training, Functional Mobility Training, Transfer Training, Gait Training, Patient/Caregiver Education & Training, Safety Education & Training, Home Exercise Program, Stair training, Positioning, Endurance Training, Cognitive Reorientation Safety Devices Type of devices: All fall risk precautions in place, Call light within reach, Chair alarm in place,Gait belt, Nurse notified, Left in chair(RLE elevated) Therapy Time Individual Concurrent Group Co-treatment Time In 0838 Time Out 0919 Minutes 41 Co-treatment with OT warranted secondary to decreased safety and independence requiring 2 skilled therapy professionals to address individual discipline's goals. PT addressing pre gait trunk strengthening, weight shifting prior to transfers, transfer training and postural control in sitting/standing. Second tx time from 1154- 1217. Walked into room to seeing pt attempting to get OOB to use restroom. Assisted pt with bed mobility, Muna for RLE. Pt very impulsive with movement. Not waiting for RW to stand, cues for use of RW to stand fully erect. Pt demo's limp, with poor heel strike on BLEs and decrease stance time on RLE with increased knee flexion. Pt demo's severe trunk flexion with all gait training with MAX cues for proper posture and body mechanics during gait training. Pt not receptive to education and at one point stated I am going to do things my way because it's better for me. Attempted to educate pt on patterns/sequencing and importance of ROM/ambulation. Pt able to ambulate 30ft prior to needing seated break due to pain. Pt required maxA x2 for stair training. Instructed pt up with the good, down with the bad . LOB during stair training due to being impulsive and goingvery fast even with max cues for safety. Pt still demo'd severe trunk flexion with stair training. Pt was left in room in chair with RLE elevated and ice machine applied with chair alarm on. Recommending SNF due to increased assistance for all mobility, to improve gait pattern, balance, ROM, strength, and safe mobility. If pt declining SNF, recommend HH PT/home with assist and transition to OP PTas necessary. Carolina Ervin, PT * Raj Finch RN - 09/22/2020 9:30 AM EST Ortho Coordinator Daily Rounding Note Admission Date: 09/20/2020 Levon Roach is a 70 y.o. male Post Op Day # 2 RTKA Labs: Recent Labs 09/22/20 0617 WBC 11.3 HGB 12.8* PLT 203 Recent Labs 09/22/20 0617 NA 135 K 4.0 CL 99 CO2 29 BUN 14 CREATININE 0.82 GLUCOSE 112* Met with: Patient AND PT Patient's LOC: alert and oriented X3 Patient progress FAIR Patient's Pain: Patient rates pain 8 Oral Intake: good Output: adequate Garcia in: no ON-Q: no Walker/DME: Walker/DME needed: Yes DME needed: walker DME Agency: WAS DELIVERED TO PTS BEDSIDE Anticoagulation: Anticoagulation: 325MG ASA BID Prescription in chart: yes Continuity of Care: The SERJIO form is on the chart. The SERJIO form is signed by the physician. Discharge Planning: Confirmed with patient that discharge plan is Home. Agency/Facility chosen: [facility] Awaiting pre-certification no Anticipated discharge date: 09/22/2019. PT ARGUMENTATIVE ABOUT BENDING AND WALKING ON SURGICAL LEG STATING THAT IT IS SWOLLEN AND HURTS ANDHE WILL NOT BEING DOING MUCH UNTIL SWELLING IS GONE. INSTRUCTIONS GIVEN ON COURSE OF THE TOTAL KNEEREPLACEMENT AND SWELLING IS NORMAL ALONG WITH PAIN. ENCOURAGED PT TO TAKE PAIN MEDS WHEN AVAILABLE AND ESPECIALLY BEFORE THERAPY TREATMENTS. OBSERVED PT IN THE GYM WITH THERAPIST USES STEPS AND PT WAS NOT VERY SAFE HE HAS 2 STEPS TO GET INTO HIS HOME. INSTRUCTED PT TO HAVE SOMEONE THERE TO HELP HIM GET INTO THE HOUSE FOR SAFETY AND TO HELP HIS , HE STATED HE DOES HAVE A SON IN LAW THAT CANCOME HELP. THERAPY IS GOING TO WITH WITH PT ONE MORE TIME TODAY WITH STEPS FOR SAFETY. Patient's questions and concerns were answered. Actively listened and provided reassurance. * Carolina Ervin, PT - 09/22/2020 8:31 AM EST Physical Therapy DATE: 09/22/2020 NAME: Levon Roach : 1950 Patient not seen this date for Physical Therapy due to: [] Blood transfusion in progress [] Cancel by RN [] Hemodialysis [x] Refusal by Patient - Pt stated I will not being doing PT this morning, my knee is swollen and it hurts. I know my body and if we keep doing PT, it'll get worse. Attempted to educate pt, although became agitated. Will continue to follow. [] Spine Precautions [] Strict Bedrest [] Surgery [] Testing [] Other [] PT being discontinued at this time. Patient independent. No further needs. [] PT being discontinued at this time as the patient has been transferred to hospice care. No further needs. Carolina Ervin, PT * Tyson Warner MD - 09/22/2020 8:09 AM EST [facility] Office: [phone] Dwayne Orourke DO, Sabino Archibald DO, Lam Mayo DO, Momo Aguilera DO, Tyson Warner MD, Amie Haque MD, Fernando Vera MD, Deanne Clay MD, Twin Be MD, Nadeen Amezcua MD, MD Ashia, Haris Pacheco MD, Shanae Ramirez MD, Sandoval Whitaker DO, Liane Carvajal MD, Beth Gordillo MD, Homar Dennis DO, Sofiya Guzmán MD, Nat Amezcua DO, Spencer Castellano MD, MD Juan, Donya Monsalve CNP, Adali Cameron CNP, Bambi Muhammad PSYCHIATRY TEACHER, Jennifer Keller, PAPER HANGER,Devyn Trejo, PSYCHIATRY TEACHER, Ladi Pedersen, PSYCHIATRY TEACHER, Deyanira Leo CNP, Mary Jane Bauman, PSYCHIATRY TEACHER, Kuldip Knight CNP, Charli Cueva PA-C, Heidi Foote, ZACH, Charline Swanson, PSYCHIATRY TEACHER, Adelina Adamson, PSYCHIATRY TEACHER, Madison Maya, PSYCHIATRY TEACHER, Gemma Lopez, PSYCHIATRY TEACHER, Lory Schrader, PSYCHIATRY TEACHER [facility] IN-PATIENT SERVICE [facility] Progress Note 09/22/2020 8:09 AM Name: Levon Roach Acct: [id number] Room: IP Day: 2 Admit Date: 09/20/2020 5:39 AM PCP: Charity Yin MD Code Status: Full Code Reason for Consult: Postoperative medical management Subjective: C/C: S/p right TKA Interval History Status: Indigestion better with PPI and Tums Denies any other new problem today Walked with physical therapy Brief History: Patient admitted under orthopedic service after right TKA with following information: This is Levon Roach a 70 y.o. male who presents for a pre-admission testing appointment for an upcoming right total knee arthroplasty by Dr. Kareem Diaz scheduled on 09/20/20@ 0730 for right knee OA. The patient's chief complaint is 9/10 aching, throbbing right pain which has progressively worsened over the past several years Treated with bilateral knee injections by his PCP for past 13 years that eventually became ineffective. Pain is aggravated by routine activities and minimally relieved with rest Patient evaluated by Orthopedic Surgeon, Dr Kareem Diaz Patient agreed to surgical intervention for improved ADL. Denies recent falls and injuries. Currently postoperatively patient is doing well, denies any palpitation or shortness of breath Denies any mood swings, he takes Librium as needed for this His preop labs done on 09/01/2020 were within acceptable range Review of Systems: Constitutional: negative for chills, fevers, sweats Respiratory: negative for cough, dyspnea on exertion, shortness of breath, wheezing Cardiovascular: negative for chest pain, chest pressure/discomfort, lower extremity edema, palpitations Gastrointestinal: + Indigestion improved, negative for abdominal pain, constipation, diarrhea, nausea, vomiting Neurological: negative for dizziness, headache Medications: Allergies: No Known Allergies Current Meds: Scheduled Meds: pantoprazole 40 mg Oral QAM AC atorvastatin 40 mg Oral Nightly metoprolol succinate 12.5 mg Oral Dinner traZODone 150 mg Oral Nightly sodium chloride flush 10 mL Intravenous 2 times per day acetaminophen 650 mg Oral Q6H sennosides-docusate sodium 1 tablet Oral BID aspirin 325 mg Oral BID Continuous Infusions: sodium chloride 125 mL/hr at 09/20/20 1929 PRN Meds: calcium carbonate, nitroGLYCERIN, sodium chloride flush, promethazine OR ondansetron,magnesium hydroxide, oxyCODONE OR oxyCODONE, HYDROmorphone OR HYDROmorphone, chlordiazePOXIDE Data: Past Medical History: has a past medical history of Anginal pain (HCC), Arthritis, Fibromyalgia, Hyperlipidemia, [place] (myocardial infarction) (HCC), Mood swings, Prolonged emergence from general anesthesia, and Sinus tachycardia. Social History: reports that he quit smoking about 25 years ago. He has quit using smokeless tobacco. He reports that he does not drink alcohol or use drugs. Family History: Family History Problem Relation Age of Onset Heart Attack Mother Stroke Mother Heart Attack Father Heart Surgery Father Heart Attack Brother Heart Surgery Brother Cancer Brother Diabetes Brother Heart Disease Brother Diabetes Sister Vitals: BP 134/62 Pulse 76 Temp 100.2 F (37.9 C) (Oral) Resp 16 Ht 5' 8 (1.727 m) Wt 155 lb 6.8 oz (70.5 kg) SpO2 96% BMI 23.63 kg/m Temp (24hrs), Av.1 F (37.3 C), Min:98 F (36.7 C), Max:100.2 F (37.9 C) No results for input(s): POCGLU in the last 72 hours. I/O (24Hr): Intake/Output Summary (Last 24 hours) at 09/22/2020 0809 Last data filed at 09/22/2020 0448 Gross per 24 hour Intake Output 700 ml Net -700 ml Labs: Hematology: Recent Labs 09/22/20 0617 WBC 11.3 RBC 3.99* HGB 12.8* HCT 39.6* MCV 99.2 MCH 32.1 MCHC 32.3 RDW 12.0 PLT 203 MPV 10.0 Chemistry: Recent Labs 09/22/20 0617 NA 135 K 4.0 CL 99 CO2 29 GLUCOSE 112* BUN 14 CREATININE 0.82 ANIONGAP 7* LABGLOM >60 GFRAA >60 CALCIUM 9.1 No results for input(s): PROT, LABALBU, LABA1C, U7VWEHQ, W5KSYPO, FT4, TSH, AST, ALT, LDH, GGT, ALKPHOS, LABGGT, BILITOT, BILIDIR, AMMONIA, AMYLASE, LIPASE, LACTATE, CHOL, HDL, LDLCHOLESTEROL, CHOLHDLRATIO, TRIG, VLDL, OLU11KY, PHENYTOIN, PHENYF, URICACID, POCGLU in the last 72 hours. ABG:No results found for: POCPH, PHART, PH, POCPCO2, JII2JII, PCO2, POCPO2, PO2ART, PO2, POCHCO3, EQV3EXU, HCO3, NBEA, PBEA, BEART, BE, THGBART, THB, OTO8JWS, FPBY8IES, P3VOVZUI, O2SAT, FIO2 No results found for: SPECIAL No results found for: CULTURE Radiology: No results found. Physical Examination: General appearance: alert, cooperative and no distress Mental Status: oriented to person, place and time and normal affect Lungs: clear to auscultation bilaterally, normal effort Heart: regular rate and rhythm, no murmur Abdomen: soft, nontender, nondistended, normal bowel sounds, no masses, hepatomegaly, splenomegaly Extremities: + Dressing right knee, no edema, redness, tenderness in the calves Skin: no gross lesions, rashes, induration Assessment: Hospital Problems Last Modified POA Localized osteoarthritis of right knee 09/20/2020 Yes Hyperlipidemia 09/20/2020 Yes Fibromyalgia 09/20/2020 Yes Mood swings 09/20/2020 Yes Overview Signed 09/20/2020 4:47 PM by Tyson Warner MD on librium History of prolonged emergence from general anesthesia in 198309/20/2020 Yes Overview Signed 09/20/2020 4:47 PM by Tyson Warner MD after one surgery 1983 CAD (coronary artery disease) 09/20/2020 Yes Indigestion Plan: 1. Protonix 40 mg oral daily while in hospital 2. Tums as needed 3. Continue home dose of beta-blockers 4. Continue Librium as needed for mood swings 5. Okay to be discharged from medical standpoint anytime Tyson Warner MD 09/22/2020 8:09 AM * Eloina Hardin RN - 09/22/2020 3:51 AM EST Penology Professor noticed more redness on the outer part of the patient's knee. Skin is warm to the touch and swollen. Painful to touch. Polar care was placed upon knee. Patient's vitals are as follows: Temp: 100.2 BP 134/62 HR: 76 Resp. 16. Pain medication given. Leg/foot elevated on 2 pillows. Incentive Spirometer encouraged. Call placed out to [facility]. Orders placed. Will continue to monitor. * Eloina Hardin RN - 09/22/2020 12:00 AM EST Noticed a little bit of redness outside of the patient's bandage. Continue to monitor. * Carolina Ervin, PT - 09/21/2020 3:12 PM EST Physical Therapy Facility/Department: [facility] Daily Treatment Note NAME: Levon Roach : 1950 Date of Service: 09/21/2020 Discharge Recommendations: Home with Home health PT, Subacute/Intermediate Facility, Continue to assess pending progress PT Equipment Recommendations Equipment Needed: Yes Mobility Devices: Walker Walker: Ed RN reports patient is medically stable for therapy treatment this date. Chart reviewed prior to treatment and patient is agreeable for therapy. All lines intact and patient positioned comfortably at end of treatment. All patient needs addressed prior to ending therapy session. Assessment Body structures, Functions, Activity limitations: Decreased functional mobility ;Decreased ROM;Decreased strength;Decreased balance;Increased pain;Decreased safe awareness Assessment: Pt will benefit from PT to address stregnth, ROM, balance, and safe mobility. Pt impulsive this date and stated he is scared to put weight through RLE. Pt very guarded this date, increasing gait deviations. Recommend SNFvs. HH PT/OP PT as necessary. Specific instructions for Next Treatment: gait, stairs Prognosis: Excellent Clinical Presentation: evolving PT Education: Transfer Training;Equipment;PT Role;Functional Mobility Training;Plan of Care;GeneralSafety;Weight-bearing Education;Gait Training Patient Education: HEP handout given REQUIRES PT FOLLOW UP: Yes Activity Tolerance Activity Tolerance: Patient limited by pain;Patient limited by cognitive status;Patient limited by fatigue Patient Diagnosis(es): The primary encounter diagnosis was Acute postoperative pain. A diagnosis ofLocalized osteoarthritis of right knee was also pertinent to this visit. has a past medical history of Anginal pain (HCC), Arthritis, Fibromyalgia, Hyperlipidemia, [place] (myocardial infarction) (HCC), Mood swings, Prolonged emergence from general anesthesia, and Sinus tachycardia. has a past surgical history that includes transesophageal echocardiogram (12/19/2015); Colonoscopy;Leg Surgery; cervical fusion; Ankle surgery; Coronary artery bypass graft (2016); Rotator cuff repair (Left, 04/01/2018); pr shldr arthroscop,surg,w/rotat cuff repr (Left, 04/01/2018); Cardiac catheterization (12/19/2015); Carpal tunnel release (Bilateral); and Total knee arthroplasty (Right, 09/20/2020). Restrictions Restrictions/Precautions Restrictions/Precautions: Weight Bearing, Fall Risk, Up as Tolerated, General Precautions, SurgicalProtocols Lower Extremity Weight Bearing Restrictions Right Lower Extremity Weight Bearing: Weight Bearing As Tolerated Position Activity Restriction Other position/activity restrictions: WBAT RLE, bilat thigh high stockings, elevate affected extremity Subjective General Chart Reviewed: Yes Response To Previous Treatment: Patient with no complaints from previous session. Family / Caregiver Present: No Subjective Subjective: Pt states pain is 7.5/10 in RLE and increased pain with all mobility. RN notified for pain meds. General Comment Comments: Pt. very talkative- needs to be redirected Orientation Orientation Overall Orientation Status: Within Normal Limits Cognition Cognition Overall Cognitive Status: Exceptions Arousal/Alertness: Appropriate responses to stimuli Following Commands: Follows one step commands with repetition;Follows one step commands with increased time;Inconsistently follows commands Attention Span: Difficulty dividing attention;Attends with cues to redirect Memory: Decreased short term memory Safety Judgement: Decreased awareness of need for safety;Decreased awareness of need for assistance Problem Solving: Assistance required to identify errors made;Assistance required to generate solutions;Decreased awareness of errors Insights: Decreased awareness of deficits Initiation: Does not require cues Sequencing: Requires cues for some Cognition Comment: Pt had difficulty finding words and following thoughts/instructions Objective Bed mobility Supine to Sit: Stand by assistance Sit to Supine: Unable to assess(pt returned to sitting in chair after session) Scooting: Stand by assistance Comment: HOB elevated, cues for use of handrails. Increased time to complete. Transfers Sit to Stand: Minimal Assistance;2 Person Assistance Stand to sit: Minimal Assistance;2 Person Assistance Bed to Chair: Moderate assistance;2 Person Assistance Comment: Muna x2 for sit to stand from bed. MAX cues required and repetition of cues for all sit>stand with poor carryover from pt. Upon standing, pt demo's increased R knee flexion and hip flexion requiring cues to stand tall. Pt will sit without warning due to pain and demo's poor quad control. Ambulation Ambulation?: Yes Ambulation 1 Surface: level tile Device: Rolling Walker Assistance: Moderate assistance;2 Person assistance Quality of Gait: Pt demo'd poor gait quality with MAX cues for heel to toe pattern and proper posture. Pt is very guarded with movement on RLE, fearful of putting weight through RLE. Gait Deviations: Slow Jody;Increased ANA;Decreased step length;Decreased step height Distance: 25ft x2, 5ft x1 Comments: ModA x2 required due to pt being impulsive and not listening to cues/instructions. Pre-gait was assessed with MAX cues and demo for pt in order to understand what was being asked. During weight shifts, tactile cueing for RLE and knee extension was required. Pt demo's increased hip flexion, and forward trunk increasing fall risk. ModA x2 for RW sequencing and for safety. Stairs/Curb Stairs?: No Stairs # Steps : 2 Stairs Height: 6 Rails: Bilateral Device: No Device Assistance: Moderate assistance;2 Person assistance Comment: Educated pt on up with the good and down with the bad. ModA due to shakiness and increasedpain during stair training. Pt demo'd very flexed posture during gait with max cues for correction. Balance Posture: Good Sitting - Static: Good Sitting - Dynamic: Good Standing - Static: Good;-(RW; knee immobilizer) Standing - Dynamic: Fair;+(BUE support from RW) Comments: Pt able to stand at sink while performing ADLs with CGA and cues for WBAT through RLE. Exercises Comments: ankle pumps, quad sets, glut sets x20 prior to getting out of bed. OutComes Score [facility] Score AM-[facility] Inpatient Mobility Raw Score : 17 (09/21/20 1511) -PAC Inpatient T-Scale Score : 42.13 (09/21/201510) Mobility Inpatient CMS 0-100% Score: 50.57 (09/21/201510) Mobility Inpatient CMS G-Code Modifier : CK (09/21/201510) Goals Short term goals Time Frame for Short term goals: 5 visits: Short term goal 1: Pt. to be indep with bed mob. 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 LE as needed Short term goal 2: Pt. to be indep with sit<>stand transfers with RW Short term goal 3: Pt. to be indep with gait with RW, 100ft. Short term goal 4: Pt. to safely negotiate 2 steps to prepare for d/c home Short term goal 5: Pt. to be indep with TKA HEP Patient Goals Patient goals : molina again Plan Plan Times per week: twice daily/ 7 days/wk Specific instructions for Next Treatment: gait, stairs Current Treatment Recommendations: Strengthening, ROM, Balance Training, Functional Mobility Training, Transfer Training, Gait Training, Patient/Caregiver Education & Training, Safety Education & Training, Home Exercise Program, Stair training, Positioning, Endurance Training, Cognitive Reorientation Safety Devices Type of devices: All fall risk precautions in place, Call light within reach, Chair alarm in place,Gait belt, Nurse notified, Left in chair(RLE elevated with heels floating) Therapy Time Individual Concurrent Group Co-treatment Time In 1401 Time Out 1428 Minutes 27 Co-treatment with OT warranted secondary to decreased safety and independence requiring 2 skilled therapy professionals to address individual discipline's goals. PT addressing pre gait trunk strengthening, weight shifting prior to transfers, transfer training and postural control in sitting/standing. Carolina Ervin PT * Raj Finch RN - 09/21/2020 12:15 PM EST Pt's Hai called and stated pt was having anxiety and requesting pt to stay another night.pt was shaking or having tremors and asked pt why and he stated he was nervous and anxious. She stated when pt has his RCR she had to bring him back to the ED d/t chest pain and pt was having an anxiety attack. Messaged Dr. Diaz and he referred anxiety treatment to internal medicine doctor if needed and ok for pt to stay until 09/22/2020. * Ev Dumont - 09/21/2020 11:57 AM EST CLINICAL PHARMACY NOTE: MEDS TO [facility] Select Patient?: No Total # of Prescriptions Filled: 3 The following medications were delivered to the patient: ONDANSETRON 4 MG TABS STOOL SOFTENER 100 MG CAPS ASPIRIN 325 MG TABS Total # of Interventions Completed: 1 Time Spent (min): 15 Additional Documentation: DELIVERED TO PT'S ROOM 09/21/20. $7.59, PT PAID GUSMAN. THE PT WAS ALSO PRESCRIBED OXYCODONE/APAP 5/325 MG TABS, BUT THE PHARMACIST CHECKED OARRS, AND IT SHOWED THE PT GOT A 30 DAY SUPPLY OF NORCO ON 09/12/20. WE PERFECT SERVED THE DOCTOR, AND HE SAID THEPT COULD USE THE NORCO HE HAS AT HOME, AND CALL HIM IF HE NEEDS SOMETHING MORE FOR PAIN. WE DID NOT FILL THE OXY/APAP FOR THIS REASON. THE PT AND THE NURSE WERE BOTH INFORMED OF THE SITUATION. * Carolina Ervin, PT - 09/21/2020 10:34 AM EST Physical Therapy Facility/Department: [facility] SURG Daily Treatment Note NAME: Levon Roach : 1950 Date of Service: 09/21/2020 Discharge Recommendations: Home with Home health PT PT Equipment Recommendations Equipment Needed: Yes Mobility Devices: Walker Walker: Rolling RN reports patient is medically stable for therapy treatment this date. Chart reviewed prior to treatment and patient is agreeable for therapy. All lines intact and patient positioned comfortably at end of treatment. All patient needs addressed prior to ending therapy session. Assessment Body structures, Functions, Activity limitations: Decreased functional mobility ;Decreased ROM;Decreased strength;Decreased balance;Increased pain;Decreased safe awareness Assessment: Pt will benefit from PT to address stregnth, ROM, balance, and safe mobility. Pt impulsive this date and stated he is scared to put weight through RLE. Pt very guarded this date, increasing gait deviations. Recommend HH PT/OP PT as necessary. Prognosis: Excellent Clinical Presentation: evolving PT Education: Transfer Training;Equipment;PT Role;Energy Conservation;Functional Mobility Training;Plan of Care;General Safety;Weight-bearing Education;Home Exercise Program;Gait Training;Precautions Patient Education: HEP handout given REQUIRES PT FOLLOW UP: Yes Activity Tolerance Activity Tolerance: Patient limited by pain Patient Diagnosis(es): The primary encounter diagnosis was Acute postoperative pain. A diagnosis ofLocalized osteoarthritis of right knee was also pertinent to this visit. has a past medical history of Anginal pain (HCC), Arthritis, Fibromyalgia, Hyperlipidemia, [place] (myocardial infarction) (HCC), Mood swings, Prolonged emergence from general anesthesia, and Sinus tachycardia. has a past surgical history that includes transesophageal echocardiogram (12/19/2015); Colonoscopy;Leg Surgery; cervical fusion; Ankle surgery; Coronary artery bypass graft (2015); Rotator cuff repair (Left, 04/01/2018); pr shldr arthroscop,surg,w/rotat cuff repr (Left, 04/01/2018); Cardiac catheterization (12/19/2015); Carpal tunnel release (Bilateral); and Total knee arthroplasty (Right, 09/20/2020). Restrictions Restrictions/Precautions Restrictions/Precautions: Weight Bearing, Fall Risk, Up as Tolerated, General Precautions, SurgicalProtocols Position Activity Restriction Other position/activity restrictions: WBAT RLE, bilat thigh high stockings, elevate affected extremity Subjective General Chart Reviewed: Yes Response To Previous Treatment: Patient with no complaints from previous session. Family / Caregiver Present: No Subjective Subjective: Pt states pain is 5/10 and increased to 7/10 during mobility. RN notified for pain meds. General Comment Comments: Pt. very talkative- needs to be redirected Orientation Orientation Overall Orientation Status: Within Normal Limits Cognition Cognition Overall Cognitive Status: Exceptions Arousal/Alertness: Appropriate responses to stimuli Following Commands: Follows all commands without difficulty Attention Span: Difficulty dividing attention;Attends with cues to redirect Safety Judgement: Decreased awareness of need for safety;Decreased awareness of need for assistance Problem Solving: Assistance required to identify errors made;Assistance required to generate solutions;Decreased awareness of errors Insights: Decreased awareness of deficits Initiation: Does not require cues Sequencing: Requires cues for some Cognition Comment: Pt had difficulty finding words and following thoughts. Objective Bed mobility Supine to Sit: Stand by assistance Sit to Supine: Unable to assess(pt returned to sitting in chair) Scooting: Stand by assistance Comment: HOB elevated, pt able to use UEs to assist with RLE from supine>sit. Increased time to complete and verbal cues to scoot towards EOB to get both feet on floor. Transfers Sit to Stand: Minimal Assistance Stand to sit: Minimal Assistance Bed to Chair: Minimal assistance Comment: Toilet transfer x1 with Muna for cues to use grab bars. Upon standing from bed, pt very impulsive, not listening to directions prior to ambulation. MAX cues for safety and pre-gait prior to ambulation. No buckling noted, proceeded to ambulation. Multiple sit<>stand transfers from w/cwith Muna for correct hand placement. Ambulation Ambulation?: Yes Ambulation 1 Surface: level tile Device: Rolling Walker Assistance: Minimal assistance Quality of Gait: Pt demo'd poor gait quality with MAX cues for heel to toe pattern and proper posture. Pt is very guarded with movement on RLE, fearful of putting weight through RLE. Gait Deviations: Slow Jody;Increased ANA;Decreased step length;Decreased step height Distance: 20ft x1, 6ft x1, 15ft x1 Comments: Pt lifting RW off ground, required MAX cues for sequencing and use of RW. Unsteady at times, able to self correct. Pt impulsive with mobility. Stairs/Curb Stairs?: Yes Stairs # Steps : 2 Stairs Height: 6 Rails: Bilateral Device: No Device Assistance: Moderate assistance;2 Person assistance Comment: Educated pt on up with the good and down with the bad. ModA due to shakiness and increasedpain during stair training. Pt demo'd very flexed posture during gait with max cues for correction. Balance Posture: Good Sitting - Static: Good Sitting - Dynamic: Good Standing - Static: Good;-(RW; knee immobilizer) Standing - Dynamic: Fair;+(BUE support from RW) Exercises Comments: ankle pumps, quad sets, glut sets x20 prior to getting out of bed. OutComes Score AM-PAC Score AM-PAC Inpatient Mobility Raw Score : 17 (09/21/20 103) AM-PAC Inpatient T-Scale Score : 42.13 (09/21/201033) Mobility Inpatient CMS 0-100% Score: 50.57 (01/06/21 1034) Mobility Inpatient CMS G-Code Modifier : CK (09/21/20 1034) Goals Short term goals Time Frame for Short term goals: 5 visits: Short term goal 1: Pt. to be indep with bed mob. 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 LE as needed Short term goal 2: Pt. to be indep with sit<>stand transfers with RW Short term goal 3: Pt. to be indep with gait with RW, 100ft. Short term goal 4: Pt. to safely negotiate 2 steps to prepare for d/c home Short term goal 5: Pt. to be indep with TKA HEP Patient Goals Patient goals : molina again Plan Plan Times per week: twice daily/ 7 days/wk Specific instructions for Next Treatment: gait, stairs, HEP Current Treatment Recommendations: Strengthening, ROM, Balance Training, Functional Mobility Training, Transfer Training, Gait Training, Patient/Caregiver Education & Training, Safety Education & Training, Home Exercise Program, Stair training, Positioning, Endurance Training Safety Devices Type of devices: Call light within reach, Gait belt, Nurse notified, Left in chair, All fall risk precautions in place(RLE elevated, stockings applied prior to mobility) Therapy Time Individual Concurrent Group Co-treatment Time In 08 Time Out 0900 Minutes 55 Carolina Ervin PT * Tyson Warner MD - 09/21/2020 9:10 AM EST [facility] Office: [phone] Dwayne Orourke DO, Sabino Archibald DO, Lam Mayo DO, Momo Aguilera DO, Tyson Warner MD, Amie Haque MD, Fernando Vera MD, Deanne Clay MD, Twin Be MD, Nadeen Amezcua MD, MD Ashia, Haris Pacheco MD, Shanae Ramirez MD, Sandoval Whitaker DO, Liane Carvajal MD, Beth Gordillo MD, Homar Dennis DO, Sofiya Guzmán MD, Nat Amezcua DO, Spencer Castellano MD, MD Juan, Donya Monsalve, PSYCHIATRY TEACHER, Adali Cameron, PSYCHIATRY TEACHER, Bambi Muhammad, PSYCHIATRY TEACHER, Jennifer Keller, PAPER HANGER,Devyn Trejo, PSYCHIATRY TEACHER, Ladi Pedersen PSYCHIATRY TEACHER, Deyanira Leo, PSYCHIATRY TEACHER, Mary Jane Bauman, PSYCHIATRY TEACHER, Kuldip Knight, PSYCHIATRY TEACHER, Charli Cueva PAJourdan, Heidi Foote, ZACH, Charline Swanson, PSYCHIATRY TEACHER, Adelina Adamson, PSYCHIATRY TEACHER, Madison Maya, PSYCHIATRY TEACHER, Gemma Lopez PSYCHIATRY TEACHER, Lory Schrader, PSYCHIATRY TEACHER [facility] IN-PATIENT SERVICE [facility] Progress Note 09/21/2020 9:10 AM Name: Levon Roach Acct: [id number] Room: IP Day: 1 Admit Date: 09/20/2020 5:39 AM PCP: Charity Yin MD Code Status: Full Code Reason for Consult: Postoperative medical management Subjective: C/C: S/p right TKA Interval History Status: Requesting something for indigestion Denies any other new problem today Brief History: Patient admitted under orthopedic service after right TKA with following information: This is Levon Roach a 70 y.o. male who presents for a pre-admission testing appointment for an upcoming right total knee arthroplasty by Dr. Kareem Diaz scheduled on 09/20/20@ 0730 for right knee OA. The patient's chief complaint is 9/10 aching, throbbing right pain which has progressively worsened over the past several years Treated with bilateral knee injections by his PCP for past 13 years that eventually became ineffective. Pain is aggravated by routine activities and minimally relieved with rest Patient evaluated by Orthopedic Surgeon, Dr Kareem Diaz Patient agreed to surgical intervention for improved ADL. Denies recent falls and injuries. Currently postoperatively patient is doing well, denies any palpitation or shortness of breath Denies any mood swings, he takes Librium as needed for this His preop labs done on 09/01/2020 were within acceptable range Review of Systems: Constitutional: negative for chills, fevers, sweats Respiratory: negative for cough, dyspnea on exertion, shortness of breath, wheezing Cardiovascular: negative for chest pain, chest pressure/discomfort, lower extremity edema, palpitations Gastrointestinal: + Indigestion, negative for abdominal pain, constipation, diarrhea, nausea, vomiting Neurological: negative for dizziness, headache Medications: Allergies: No Known Allergies Current Meds: Scheduled Meds: atorvastatin 40 mg Oral Nightly metoprolol succinate 12.5 mg Oral Dinner traZODone 150 mg Oral Nightly sodium chloride flush 10 mL Intravenous 2 times per day acetaminophen 650 mg Oral Q6H sennosides-docusate sodium 1 tablet Oral BID aspirin 325 mg Oral BID Continuous Infusions: sodium chloride 125 mL/hr at 09/20/20 2329 PRN Meds: nitroGLYCERIN, sodium chloride flush, promethazine OR ondansetron, magnesium hydroxide, oxyCODONE OR oxyCODONE, HYDROmorphone OR HYDROmorphone, chlordiazePOXIDE Data: Past Medical History: has a past medical history of Anginal pain (HCC), Arthritis, Fibromyalgia, Hyperlipidemia, [place] (myocardial infarction) (HCC), Mood swings, Prolonged emergence from general anesthesia, and Sinus tachycardia. Social History: reports that he quit smoking about 25 years ago. He has quit using smokeless tobacco. He reports that he does not drink alcohol or use drugs. Family History: Family History Problem Relation Age of Onset Heart Attack Mother Stroke Mother Heart Attack Father Heart Surgery Father Heart Attack Brother Heart Surgery Brother Cancer Brother Diabetes Brother Heart Disease Brother Diabetes Sister Vitals: BP (!) 111/57 Pulse 63 Temp 97.6 F (36.4 C) (Oral) Resp 18 Ht 5' 8 (1.727 m) Wt 155 lb 6.8 oz (70.5 kg) SpO2 94% BMI 23.63 kg/m Temp (24hrs), Av.3 F (35.7 C), Min:95.9 F (35.5 C), Max:97.7 F (36.5 C) No results for input(s): POCGLU in the last 72 hours. I/O (24Hr): Intake/Output Summary (Last 24 hours) at 09/21/2020 0910 Last data filed at 09/21/2020 0453 Gross per 24 hour Intake 2620.83 ml Output 1700 ml Net 920.83 ml Labs: Hematology:No results for input(s): WBC, RBC, HGB, HCT, MCV, MCH, MCHC, RDW, PLT, MPV, SEDRATE, CRP, INR, DDIMER, ZF2UPPZG, LABABSO in the last 72 hours. Invalid input(s): PT Chemistry:No results for input(s): NA, K, CL, CO2, GLUCOSE, BUN, CREATININE, MG, ANIONGAP, LABGLOM,GFRAA, CALCIUM, CAION, PHOS, PSA, PROBNP, TROPHS, CKTOTAL, CKMB, CKMBINDEX, MYOGLOBIN, DIGOXIN, LACTACIDWB in the last 72 hours.No results for input(s): PROT, LABALBU, LABA1C, U2TOFOX, Y1WSRBF, FT4, TSH, AST, ALT, LDH, GGT, ALKPHOS, LABGGT, BILITOT, BILIDIR, AMMONIA, AMYLASE, LIPASE, LACTATE, CHOL, HDL, LDLCHOLESTEROL, CHOLHDLRATIO, TRIG, VLDL, DBP77QG, PHENYTOIN, PHENYF, URICACID, POCGLU in the last 72 hours. ABG:No results found for: POCPH, PHART, PH, POCPCO2, AGF0CSB, PCO2, POCPO2, PO2ART, PO2, POCHCO3, JGD2AVF, HCO3, NBEA, PBEA, BEART, BE, THGBART, THB, KPP4IUD, FHOF3UJQ, M9YITVFV, O2SAT, FIO2 No results found for: SPECIAL No results found for: CULTURE Radiology: No results found. Physical Examination: General appearance: alert, cooperative and no distress Mental Status: oriented to person, place and time and normal affect Lungs: clear to auscultation bilaterally, normal effort Heart: regular rate and rhythm, no murmur Abdomen: soft, nontender, nondistended, normal bowel sounds, no masses, hepatomegaly, splenomegaly Extremities: + Dressing right knee, no edema, redness, tenderness in the calves Skin: no gross lesions, rashes, induration Assessment: Hospital Problems Last Modified POA Localized osteoarthritis of right knee 09/20/2020 Yes Hyperlipidemia 09/20/2020 Yes Fibromyalgia 09/20/2020 Yes Mood swings 09/20/2020 Yes Overview Signed 09/20/2020 4:47 PM by Tyson Warner MD on librium History of prolonged emergence from general anesthesia in 198309/20/2020 Yes Overview Signed 09/20/2020 4:47 PM by Tyson Warner MD after one surgery 1983 CAD (coronary artery disease) 09/20/2020 Yes Indigestion Plan: 1. Protonix 40 mg oral daily while in hospital 2. Tums as needed 3. Continue home dose of beta-blockers 4. Continue Librium as needed for mood swings 5. Okay to be discharged from medical standpoint Tyson Warner MD 09/21/2020 9:10 AM * Kareem Diaz MD - 09/21/2020 7:50 AM EST Ortho [id number] Discussion of Medical Necessity for Use of Assistive Device after Joint Replacement Surgery I discussed today, face to face, the patient's mobility needs after their joint replacement operation. The patient will require the use of a walker now and for at least 30 days continuously because of impaired gait and the necessity of joint support for safe ambulation after joint replacement surgery. * Kareem Diaz MD - 09/21/2020 7:46 AM EST Orthopaedic Progress Note SUBJECTIVE Mr. Roach is post op day # 1 denies pain. Patient notes he is doing well status post right total knee arthroplasty. He is without complaints this morning. OBJECTIVE Physical VITALS: BP (!) 111/57 Pulse 63 Temp 97.6 F (36.4 C) (Oral) Resp 18 Ht 5' 8 (1.727 m) Wt 155 lb 6.8 oz (70.5 kg) SpO2 94% BMI 23.63 kg/m INTAKE/OUTPUT: Intake/Output Summary (Last 24 hours) at 09/21/2020 0746 Last data filed at 09/21/2020 0453 Gross per 24 hour Intake 3620.83 ml Output 1700 ml Net 1920.83 ml TEMPERATURE: Current - Temp: 97.6 F (36.4 C); Max - Temp Av.6 F (35.3 C) Min: 91.2 F (32.9 C) Max: 97.7 F (36.5 C) RESPIRATIONS RANGE: Resp Av.7 Min: 0 Max: 18 PULSE RANGE: Pulse Av.1 Min: 41 Max: 63 BLOOD PRESSURE RANGE: Systolic (24hrs), Av , Min:82 , Max:132 ; Diastolic (24hrs), Av, Min:48, Max:73 PULSE OXIMETRY RANGE: SpO2 Av.1 % Min: 94 % Max: 100 % I/O last 3 completed shifts: In: 3620.8 [P.O.:400; I.V.:3170.8; IV Piggyback:50] Out: 1700 [Urine:1550; Blood:150] Patient is awake and oriented x3 Aquacel dressing is in place and clean dry and intact He is neurovascular intact the entire right lower extremity No signs of a DVT with a negative Homans' sign Data CBC: Lab Results Component Value Date WBC 7.4 09/01/2020 HGB 14.7 09/01/2020 PLT 233 09/01/2020 BMP: Lab Results Component Value Date NA 139 09/01/2020 K 4.2 09/01/2020 CL 102 09/01/2020 CO2 27 09/01/2020 BUN 23 09/01/2020 CREATININE 1.06 09/01/2020 CALCIUM 8.9 04/02/2018 GLUCOSE 95 04/02/2018 Uric Acid: No components found for: URIC PT/INR: No results found for: PROTIME, INR Troponin: No results found for: TROPONINI Urine Culture: No components found for: CURINE Current Inpatient Medications Current Facility-Administered Medications: atorvastatin (LIPITOR) tablet 40 mg, 40 mg, Oral, Nightly metoprolol succinate (TOPROL XL) extended release tablet 12.5 mg, 12.5 mg, Oral, Dinner nitroGLYCERIN (NITROSTAT) SL tablet 0.4 mg, 0.4 mg, Sublingual, Q5 Min PRN traZODone (DESYREL) tablet 150 mg, 150 mg, Oral, Nightly sodium chloride flush 0.9 % injection 10 mL, 10 mL, Intravenous, 2 times per day sodium chloride flush 0.9 % injection 10 mL, 10 mL, Intravenous, PRN acetaminophen (TYLENOL) tablet 650 mg, 650 mg, Oral, Q6H promethazine (PHENERGAN) tablet 12.5 mg, 12.5 mg, Oral, Q6H PRN OR ondansetron (ZOFRAN) injection 4 mg, 4 mg, Intravenous, Q6H PRN sennosides-docusate sodium (SENOKOT-S) 8.6-50 MG tablet 1 tablet, 1 tablet, Oral, BID magnesium hydroxide (MILK OF MAGNESIA) 400 MG/5ML suspension 30 mL, 30 mL, Oral, Daily PRN 0.9 % sodium chloride infusion, , Intravenous, Continuous oxyCODONE (ROXICODONE) immediate release tablet 5 mg, 5 mg, Oral, Q4H PRN OR oxyCODONE (ROXICODONE) immediate release tablet 10 mg, 10 mg, Oral, Q4H PRN HYDROmorphone (DILAUDID) injection 0.25 mg, 0.25 mg, Intravenous, Q3H PRN OR HYDROmorphone (DILAUDID) injection 0.5 mg, 0.5 mg, Intravenous, Q3H PRN aspirin EC tablet 325 mg, 325 mg, Oral, BID chlordiazePOXIDE (LIBRIUM) capsule 10 mg, 10 mg, Oral, Daily PRN PLAN Up with physical therapy today Discharge home today DVT prophylaxis with aspirin Follow-up with me in 2 weeks Kareem Diaz MD * Abigail Moilna, PT - 09/20/2020 6:05 PM EST Physical Therapy Facility/Department: [facility] Initial Assessment-Day of Surgery NAME: Levon Roach : 1950 Date of Service: 09/20/2020 Discharge Recommendations: Home with Home health PT Rt. TKA by Dr. Diaz, 09/20/19 Assessment Body structures, Functions, Activity limitations: Decreased functional mobility ;Decreased ROM;Decreased strength Assessment: Pt. doing well day of surgery, amb. in room and got to bathroom with Rt. LE knee immobilizer. Pt. should be OK for d/c home 09/21 after further gait training, stair training and HEP EDU. Specific instructions for Next Treatment: gait, stairs, HEP Prognosis: Excellent Decision Making: Medium Complexity PT Education: Goals;PT Role;Plan of Care;General Safety Patient Education: importance of OOB, homework ex. for tonight REQUIRES PT FOLLOW UP: Yes Activity Tolerance Activity Tolerance: Patient Tolerated treatment well Patient Diagnosis(es): There were no encounter diagnoses. has a past medical history of Anginal pain (HCC), Arthritis, Fibromyalgia, Hyperlipidemia, [place] (myocardial infarction) (HCC), Mood swings, Prolonged emergence from general anesthesia, and Sinus tachycardia. has a past surgical history that includes transesophageal echocardiogram (12/19/2015); Colonoscopy;Leg Surgery; cervical fusion; Ankle surgery; Coronary artery bypass graft (2015); Rotator cuff repair (Left, 04/01/2018); pr shldr arthroscop,surg,w/rotat cuff repr (Left, 04/01/2018); Cardiac catheterization (12/19/2015); Carpal tunnel release (Bilateral); and Total knee arthroplasty (Right, 09/20/2020). Restrictions Restrictions/Precautions Restrictions/Precautions: Weight Bearing, Fall Risk, Up as Tolerated, General Precautions, SurgicalProtocols Vision/Hearing Vision: Impaired Vision Exceptions: Wears glasses at all times Hearing: Within functional limits Subjective General Chart Reviewed: Yes Patient assessed for rehabilitation services?: Yes Family / Caregiver Present: No Follows Commands: Within Functional Limits General Comment Comments: Pt. 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 Kayaks, very active Cognition Cognition Overall Cognitive Status: Exceptions Attention Span: Difficulty dividing attention;Attends with cues to redirect Safety Judgement: Decreased awareness of need for safety Problem Solving: Assistance required to identify errors made Insights: Decreased awareness of deficits Sequencing: Requires cues for some Objective Observation/Palpation Posture: Good Observation: IV; numbness from spinal and nerve block- immobilizer used; pt. very talkative and needs cues for redirection AROM RLE (degrees) RLE General AROM: 5-60 degrees knee flexion day of surgery AROM LLE (degrees) LLE AROM : WFL AROM RUE (degrees) RUE General AROM: see OT eval Strength RLE Comment: + SLR, + LAQ Strength LLE Strength LLE: WNL Strength RUE Comment: see OT eval Tone RLE RLE Tone: Normotonic Tone LLE LLE Tone: Normotonic Sensation Overall Sensation Status: Impaired(describes numbness in groin area and buttocks. Does not feel pain) Bed mobility Supine to Sit: Contact guard assistance Sit to Supine: Contact guard assistance Transfers Sit to Stand: Contact guard assistance Stand to sit: Contact guard assistance Comment: toilet transfer min A (turning with RW, safe hand placement, propping Rt. LE in immobilizer up on foot stool) Ambulation Ambulation?: Yes Ambulation 1 Surface: level tile Device: Rolling Walker Assistance: Contact guard assistance Quality of Gait: Pre-gait stepping sequence with RW first to determine quad control- wt. Shifts/ steps in place. Pt. With questionable quad control so used knee immobilizer; cues to not step underneath front bar of RW and cues to slow down/ proper stepping sequence. Good demo if taking time. Distance: 15ft. x 2 Comments: Back to bed with bed alarm, EPC cuffs Balance Posture: Good Sitting - Static: Good Sitting - Dynamic: Good Standing - Static: Good;-(RW; knee immobilizer) Exercises Quad Sets: 10 Heelslides: 5 Gluteal Sets: 10 Ankle Pumps: 10 Pt. instructed in quad/glute isometrics to be done x 10 reps every 1-2 hrs. as able. Encouraged pt.to frequently AP for increased LE circulation and perform heel slides as needed to prevent hip/kneestiffness. Plan Plan Times per week: twice daily/ 7 days/wk Specific instructions for Next Treatment: gait, stairs, HEP Current Treatment Recommendations: Strengthening, ROM, Balance Training, Functional Mobility Training, Transfer Training, Gait Training, Patient/Caregiver Education & Training, Safety Education & Training, Home Exercise Program Safety Devices Type of devices: All fall risk precautions in place, Gait belt, Patient at risk for falls, Bed alarm in place, Call light within reach, Left in bed, Nurse notified Goals Short term goals Time Frame for Short term goals: 5 visits: Short term goal 1: Pt. to be indep with bed mob. 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 LE as needed Short term goal 2: Pt. to be indep with sit<>stand transfers with RW Short term goal 3: Pt. to be indep with gait with RW, 100ft. Short term goal 4: Pt. to safely negotiate 2 steps to prepare for d/c home Short term goal 5: Pt. to be indep with TKA HEP Patient Goals Patient goals : tracy aquino Therapy Time Individual Concurrent Group Co-treatment Time In 1450 Time Out 1549 Minutes 59 Treatment time: 43 Co-treatment with OT warranted first time up day of surgery. Cotx due to potential risk of decreased sensation, muscle control and proprioception from spinal epidural and/or regional block. Decreasedsafety and independence requiring 2 skilled therapy professionals to address individual discipline's goals. ABIGAIL MOLINA, PT * Chanel Saini, OT - 09/20/2020 5:26 PM EST Occupational Therapy Occupational Therapy Initial Assessment Date: 09/20/2020 Patient Name: Levon Roach : 1950 Date of Service: 09/20/2020 Discharge Recommendations: Home with assist PRN RN reports patient is medically stable for therapy treatment this date. Chart reviewed prior to treatment and patient is agreeable for therapy. All lines intact and patient positioned comfortably at end of treatment. All patient needs addressed prior to ending therapy session. Assessment Performance deficits / Impairments: Decreased functional mobility ;Decreased ADL status;Decreased strength;Decreased safe awareness;Decreased endurance;Decreased balance;Decreased posture Prognosis: Good Decision Making: Medium Complexity OT Education: OT Role;Plan of Care;Home Exercise Program;Precautions;ADL Adaptive Strategies;Transfer Training;Energy Conservation;Equipment;Family Education REQUIRES OT FOLLOW UP: Yes Activity Tolerance Activity Tolerance: Patient Tolerated treatment well Safety Devices Safety Devices in place: Yes Type of devices: Call light within reach;Patient at risk for falls;Left in bed;Bed alarm in place;Nurse notified Patient Diagnosis(es): The primary encounter diagnosis was Acute postoperative pain. A diagnosis ofLocalized osteoarthritis of right knee was also pertinent to this visit. has a past medical history of Anginal pain (HCC), Arthritis, Fibromyalgia, Hyperlipidemia, [place] (myocardial infarction) (HCC), Mood swings, Prolonged emergence from general anesthesia, and Sinus tachycardia. has a past surgical history that includes transesophageal echocardiogram (12/19/2015); Colonoscopy;Leg Surgery; cervical fusion; Ankle surgery; Coronary artery bypass graft (2015); Rotator cuff repair (Left, 04/01/2018); pr shldr arthroscop,surg,w/rotat cuff repr (Left, 04/01/2018); Cardiac catheterization (12/19/2015); Carpal tunnel release (Bilateral); and Total knee arthroplasty (Right, 09/20/2020). Restrictions Restrictions/Precautions Restrictions/Precautions: Weight Bearing, Fall Risk, Up as Tolerated, General Precautions, SurgicalProtocols Subjective General Chart Reviewed: Yes Patient assessed for rehabilitation services?: Yes Family / Caregiver Present: No Patient Currently in Pain: Yes Pain Assessment Pain Assessment: 0-10 Pain Level: 3 Pain Type: Surgical pain Pain Location: Knee Pain Orientation: Right Pain Descriptors: Dull;Aching Pain Frequency: Intermittent Pain Onset: Gradual Clinical Progression: Not changed Functional Pain Assessment: Prevents or interferes some active activities and ADLs Non-Pharmaceutical Pain Intervention(s): Rest;Repositioned;Relaxation techniques;Emotional support Response to Pain Intervention: Patient Satisfied Vital Signs Temp: 97.6 F (36.4 C) Temp Source: Oral Pulse: 63 Heart Rate Source: Monitor Resp: 18 BP: (!) 111/57 BP Location: Left Arm MAP (mmHg): 71 Level of Consciousness: Alert (0) MEWS Score: 1 Patient Currently in Pain: Yes Oxygen Therapy SpO2: 94 % O2 Device: None (Room air) Social/Functional History Social/Functional History Lives With: Spouse Type of Home: House Home Layout: One level Home Access: Stairs to enter without rails Entrance Stairs - Number of Steps: 2 Bathroom Shower/Tub: Tub/Shower unit, Walk-in shower Bathroom Toilet: Standard Home Equipment: Rolling walker ADL Assistance: Independent Homemaking Assistance: Independent Homemaking Responsibilities: Yes Ambulation Assistance: Independent Transfer Assistance: Independent Active 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 Kayaks, very active Objective Vision: Impaired Vision Exceptions: Wears glasses at all times Hearing: Within functional limits Orientation Overall Orientation Status: Within Normal Limits Observation/Palpation Observation: IV; numbness from spinal and nerve block- immobilizer used; pt. very talkative and needs cues for redirection Balance Sitting Balance: Stand by assistance Standing Balance: Minimal assistance Functional Mobility Functional - Mobility Device: Rolling Walker Activity: To/from bathroom Assist Level: Minimal assistance Functional Mobility Comments: knee immobilizer used; pt with questionable quad control. Pt demo'd functional mob to/from bathroom and around bed with RW; educated on safe use of device and proper sequencing of steps. Pt is talkative and needs redirected to stay focused on folllow through on instruction Toilet Transfers Equipment Used: Standard toilet Toilet Transfer: Minimal assistance Toilet Transfers Comments: cues for using grabbars, extending out R LE ADL Feeding: Independent Grooming: Independent UE Bathing: Supervision LE Bathing: Moderate assistance UE Dressing: Supervision LE Dressing: Moderate assistance Toileting: Moderate assistance Tone RUE RUE Tone: Normotonic Tone LUE LUE Tone: Normotonic Coordination Movements Are Fluid And Coordinated: Yes Bed mobility Supine to Sit: Contact guard assistance Sit to Supine: Contact guard assistance Transfers Sit to stand: Contact guard assistance;Minimal assistance Stand to sit: Minimal assistance;Contact guard assistance Transfer Comments: cues for hand placement, RW safety Cognition Overall Cognitive Status: Exceptions Attention Span: Difficulty dividing attention;Attends with cues to redirect Safety Judgement: Decreased awareness of need for safety Problem Solving: Assistance required to identify errors made Insights: Decreased awareness of deficits Sequencing: Requires cues for some Perception Overall Perceptual Status: WFL Sensation Overall Sensation Status: Impaired(describes numbness in groin area and buttocks. Does not feel pain) LUE AROM (degrees) LUE AROM : WFL RUE AROM (degrees) RUE AROM : WFL LUE Strength Gross LUE Strength: WFL LUE Strength Comment: B UE's 01/18 RUE Strength Gross RUE Strength: WFL Plan Plan Times per week: 5-6 x/week, 1-2x/day Current Treatment Recommendations: Strengthening, Balance Training, Functional Mobility Training, Endurance Training, Safety Education & Training, Self-Care / ADL, Patient/Caregiver Education & Training, Equipment Evaluation, Education, & procurement, Positioning Goals Short term goals Time Frame for Short term goals: by discharge, pt will Short term goal 1: demo S/WV with ADL transfers and functional mob with good safety/pacing and approp AD/DME Short term goal 2: demo S/WV with toileting routine Short term goal 3: demo I with UB ADLs and min A LB ADLs with approp DME/AE as needed and good saety Short term goal 4: demo and verb good understanding of fall prevention techs, EC/WS techs, possibleequip needs and TKA precautions Patient Goals Patient goals : to go home Therapy Time Individual Concurrent Group Co-treatment Time In Time Out Minutes Pt educated on course of therapy at hospital, fall prevention techs, walker/equip safety, dressing,use of support hose, infection protection, and possible home needs inc. Possible equip needs for ADLs/IADLs. Co-treatment with PT warranted first time up day of surgery. Cotx due to potential risk of decreased sensation, muscle control and proprioception from spinal epidural and/or regional block. Decreasedsafety and independence requiring 2 skilled therapy professionals to address individual discipline's goals. Chanel Saini OT * Raj Finch RN - 09/20/2020 12:43 PM EST Ortho Coordinator Daily Rounding Note Admission Date: 09/20/2020 Levon Roach is a 70 y.o. male Post Op Day # 0 LTKA Labs: No results for input(s): WBC, HGB, PLT in the last 72 hours. No results for input(s): NA, K, CL, CO2, BUN, CREATININE, GLUCOSE in the last 72 hours. Met with: Patient Patient's LOC: alert and oriented X3 Patient progress FAIR Patient's Pain: Patient rates pain 6 Oral Intake: good Output: adequate Garcia in: yes ON-Q: no Walker/DME: Walker/DME needed: Yes DME needed: walker DME Agency: RX WRITTEN AND GIVEN TO BAMBI CARTER Anticoagulation: Anticoagulation: 325MG ASA BID Prescription in chart: no Continuity of Care: The SERJIO form is on the chart. The SERJIO form is not signed by the physician. Discharge Planning: Confirmed with patient that discharge plan is Home. Agency/Facility chosen: [facility] Awaiting pre-certification no Anticipated discharge date: 09/21/2020 Patient's questions and concerns were answered. Actively listened and provided reassurance. * Lena Barbosa RN - 09/20/2020 12:25 PM EST Admitted from PACU awake, alert. Oriented to room and equipment. bilat SCD's on. Reports minimal sensation RLE, just starting to move toes, admission database completed documented in this encounter Assessments Diagnosis Preop testing- Primary Preoperative examination, unspecified Diagnosis Acute postoperative pain- Primary Other acute postoperative pain Localized osteoarthritis of right knee Hyperlipidemia Other and unspecified hyperlipidemia Fibromyalgia Mylagia and myositis, unspecified Mood swings Other specified episodic mood disorder History of prolonged emergence from general anesthesia in 1983 CAD (coronary artery disease) Coronary atherosclerosis of unspecified type of vessel, [place] or graft Reason for Referral Status Reason Specialty Diagnoses / Procedures Referred By Contact Referred To Contact Open Patient Preference Physical Therapy Diagnoses Acute postoperative pain Localized osteoarthritis of right knee Kareem Diaz MD [address] [place] [address] Hospital Course * Kareem Diaz MD - 09/21/2020 7:53 AM EST Physician Discharge Summary Patient ID: Levon Roach [id number] y.o. 1950 Admit date: 09/20/2020 Discharge date and time: No discharge date for patient encounter. Admitting Physician: Kareem Diaz MD Discharge Physician: Kareem Diaz MD Admission Diagnoses: Localized osteoarthritis of right knee [M17.11] Discharge Diagnoses: Localized osteoarthritis of right knee [M17.11] Hospital Course: Right total knee arthroplasty Consults: Hospitalist Condition: Stable Treatments: Occupational therapy and physical therapy Disposition: Home Patient Instructions: Levon Roach Home Medication Instructions [id number] Printed on:09/21/20 5782 Medication Information aspirin 325 MG EC tablet Take 1 tablet by mouth 2 times daily for 14 days atorvastatin (LIPITOR) 40 MG tablet Take 40 mg by mouth nightly chlordiazePOXIDE (LIBRIUM) 10 MG capsule Take 10 mg by mouth daily. docusate sodium (COLACE) 100 MG capsule Take 1 capsule by mouth 2 times daily metoprolol succinate (TOPROL XL) 25 MG extended release tablet Take 12.5 mg by mouth Daily with supper Misc. Devices (WALKER) MISC 1 each by Does not apply route daily nitroGLYCERIN (NITROSTAT) 0.[address] 0.4 mg under the tongue every 5 minutes as needed for Chest pain up to max of 3 total doses. If no relief after 1 dose, call 911. ondansetron (ZOFRAN) 4 MG tablet Take 1 tablet by mouth every 6 hours as needed for Nausea oxyCODONE-acetaminophen (PERCOCET) 5-325 MG per tablet Take 1-2 tablets by mouth every 4 hours as needed for Pain for up to 7 days. traZODone (DESYREL) 100 MG tablet Take 150 mg by mouth nightly Activity: Weight-bear as tolerated Diet: regular Wound Care: change aquacel dressing in 2 weeks Follow-up 2-3 weeks Signed: Kareem Diaz MD 09/21/2020 7:53 AM documented in this encounter Discharge Instructions * Discharge Instr - SERJIO* Jeremías Aguirre RN - 09/21/2020 7:53 AM EST Continuity of Care Form Patient Name: Levon Roach : 1950 Admit date: 09/20/2020 Discharge date: 09/22/2020 Code Status Order: Full Code Advance Directives: Advance Care Flowsheet Documentation Date/Time Healthcare Directive Type of Healthcare Directive Copy in Chart Healthcare Agent Appointed Healthcare Agent's Name Healthcare Agent's Phone Number 09/20/20 0611 Yes, patient has an advance directive for healthcare treatment -- No, copy requested from other (See comment) -- -- -- Admitting Physician: Kareem Diaz MD PCP: Charity Yin MD Discharging Nurse: Abigail CARTER Discharging Hospital Unit/Room#: Discharging Unit Emergency Contact: Extended Emergency Contact Information Primary Emergency Contact: Hai Roach [facility] Relation: Spouse Past Surgical History: Past Surgical History: Procedure Laterality Date ANKLE SURGERY CARDIAC CATHETERIZATION 12/19/2015 double bypass CARPAL TUNNEL RELEASE Bilateral CERVICAL FUSION COLONOSCOPY CORONARY ARTERY BYPASS GRAFT 2015 Double bypass LEG SURGERY due to accident MS SHLDR ARTHROSCOP,SURG,W/ROTAT CUFF REPR Left 04/01/2018 SHOULDER ARTHROSCOPY LEFT WITH ROTATOR CUFF REPAIR - KAMARA & NEPHEW performed by Kareem Diaz MD at [facility] OR ROTATOR CUFF REPAIR Left 04/01/2018 with arthroscopy TOTAL KNEE ARTHROPLASTY Right 09/20/2020 RIGHT KNEE TOTAL ARTHROPLASTY performed by Kareem Diaz MD at [facility] OR TRANSESOPHAGEAL ECHOCARDIOGRAM 12/19/2015 Immunization History: There is no immunization history on file for this patient. Active Problems: Patient Active Problem List Diagnosis Code Localized osteoarthritis of right knee M17.11 Hyperlipidemia E78.5 Fibromyalgia M79.7 Mood swings R45.86 History of prolonged emergence from general anesthesia in 1983 T88.59XA CAD (coronary artery disease) I25.10 Isolation/Infection: Isolation No Isolation Patient Infection Status Infection Onset Added Last Indicated Last Indicated By Review Planned Expiration Resolved Resolved By None active Resolved COVID-19 Rule Out 09/14/20 09/14/20 09/14/20 COVID-19 (Ordered) 09/15/20 Rule- Out Test Resulted Nurse Assessment: Last Vital Signs: BP (!) 111/57 Pulse 63 Temp 97.6 F (36.4 C) (Oral) Resp 18 Ht 5' 8 (1.727 m) Wt 155 lb 6.8 oz (70.5 kg) SpO2 94% BMI 23.63 kg/m Last documented pain score (0-10 scale): Pain Level: 3 Last Weight: Wt Readings from Last 1 Encounters: 09/20/20 155 lb 6.8 oz (70.5 kg) Mental Status: oriented, alert, coherent, logical, thought processes intact and able to concentrateand follow conversation IV Access: - None Nursing Mobility/ADLs: Walking Assisted Transfer Assisted Bathing Independent Dressing Assisted Toileting Independent Feeding Independent Case Loader Operator Independent Med Delivery whole Wound Care Documentation and Therapy: Elimination: Continence: Bowel: Yes Bladder: Yes Urinary Catheter: None Colostomy/Ileostomy/Ileal Conduit: No Date of Last BM: Intake/Output Summary (Last 24 hours) at 09/21/2020 0750 Last data filed at 09/21/2020 0453 Gross per 24 hour Intake 3620.83 ml Output 1700 ml Net 1920.83 ml I/O last 3 completed shifts: In: 3620.8 [P.O.:400; I.V.:3170.8; IV Piggyback:50] Out: 1700 [Urine:1550; Blood:150] Safety Concerns: At Risk for Falls Impairments/Disabilities: None Nutrition Therapy: Current Nutrition Therapy: - Oral Diet: General Routes of Feeding: Oral Liquids: No Restrictions Daily Fluid Restriction: no Last Modified Barium Swallow with Video (Video Swallowing Test): not done Treatments at the Time of Hospital Discharge: Respiratory Treatments: Oxygen Therapy: is not on home oxygen therapy. Ventilator: - No ventilator support Rehab Therapies: Physical Therapy and Occupational Therapy Weight Bearing Status/Restrictions: No weight bearing restirctions Other Medical Equipment (for information only, NOT a DME order): walker Other Treatments: Patient's personal belongings (please select all that are sent with patient): Glasses RN SIGNATURE: CASE MANAGEMENT/SOCIAL WORK SECTION Inpatient Status Date: Readmission Risk Assessment Score: Readmission Risk Risk of Unplanned Readmission: 6 Discharging to Facility/ Agency Name: [facility] Details FAX [address] [place] [address] Dialysis Facility (if applicable) Name: Address: Dialysis Schedule: Phone: Fax: Banner Painter/Building Insulation Supervisor signature: PHYSICIAN SECTION Prognosis: Good Condition at Discharge: Stable Rehab Potential (if transferring to Rehab): Good Recommended Labs or Other Treatments After Discharge: Physical therapy Physician Certification: I certify the above information and transfer of Levon Roach is necessary for the continuing treatment of the diagnosis listed and that he requires Home Care for less 30days. Update Admission H&P: No change in H&P PHYSICIAN SIGNATURE: * Additional Instructions* Raj Finch RN - 09/20/2020 ANY ORTHOPEDIC QUESTIONS OR ANY OTHER CONCERNS YOU MAY CALL THE ORTHOPEDIC COORDINATOR: RAJ FINCH RN, BSN [phone] [email or web address] YOU MAY ALSO MESSAGE ME ON GET WELL LOOP!! DISCHARGE INSTRUCTIONS Caring for yourself after joint replacement surgery (Total Hip and Total Knee Replacement) Activity and Therapy ? Receive physical therapy three times per week. (Pain medication one hour prior to therapy) ? Perform PT exercises on own when not receiving home or outpatient PT. ? Ideally exercises should be at least two times a day. ? Increase level of activity and ambulation each day. ? Perform deep breathing exercises daily. ? Patient provides self-care when possible. ? Work on Range of motion for Total knee patients. ? No pillow under the knee for Total knee patients. ? Elevate the surgical leg when seated. Diet: ? Increase oral intake of fruits, fiber and water to prevent constipation. ? Drink fluids frequently and take stool softeners to aid in bowel motility. ? Increase protein intake/reduce high-sugar intake to help promote healing and prevent infection. Incision Care: ? Keep Aquacel or other dressing intact until seen and removed by surgeon, unless saturated, in which case, call surgeon and request instructions. If dressing falls off, call surgeon. ? Rob Hose on in the am and off in the pm to reduce swelling. ? Ice affected area four times a day, for twenty minutes. Pain Medications and Anticoagulant ? You have been place on an anticoagulant to prevent blood clots. Take this medication exactly as prescribed. Be alert for signs of bleeding. Take care not to injure yourself. ? You have been provided pain medicine to control your pain. Do not take more narcotics than prescribed. You may begin weaning from narcotics as your pain level improves by decreasing the amount or frequency of the narcotics. You may also take plain acetaminophen as an alternate to the narcotics. Never exceed the recommended dosage. ? Ice, rest and elevating the surgical limb also help with pain control. When to call the Surgeon: ? Increased redness, warmth, drainage, swelling or odor from incision site. ? Temperature above 101 degrees. ? Pain not controlled by prescribed medications. ? Calf tenderness, swelling, or redness. ? Shortness of breath or chest pain. ? If you cannot urinate and have been consuming liquids ? Any incision or surgical-related concerns. ? Call surgeon with concerns PRIOR TO going to hospital. Normal Conditions: ? Swelling in the operative leg: this should reduce over time. ? Bruising behind the knee and around surgical area. ? Some post-operative pain. ? Constipation related to pain medications/decreased mobility. (Increase fiber & water intake.) ? Slight warmth of operative leg. ? Fatigue and moderate pain after therapy. ? Numbness near the incision site. ? Nausea - take pain medications with food. Cut back on pain medication. ? NOTE: Remember to go to follow-up orthopedic appointment with surgeon Discharge instructions video: [email or web address] Keep it Clean Post-Operative Home instructions These instructions are to help you have the best possible recovery after your surgical procedure. [facility] is here to support you. If you have questions, call [phone] Saturday through Saturday from 7:30AM to 8:30PM to speak to a nurse. If you need to speak to someone outside of these hours, call your physician. Incision Do s and Don ts Do wash hands before and after dressing changes or when you have had any contact with your incision. Use hand driver lifter of sanitation truck or antibacterial soap. Do keep your incision clean and dry. It s OK to wash the skin around your incision with mild soap and water. Do change your dressing as you were told. Do notify your doctor if the dressing becomes wet or dirty. Do use a clean washcloth every time when cleaning your incision. Do sleep on clean linens. Do keep pets away from incision site. Don t sit in a bathtub, pool, or hot tub until your incision is fully closed and any drains are removed. Don t scrub, pick, scratch, or pull at your incision. Don t use oils, lotions, or creams on your incision unless your healthcare provider approves it. Follow-up You will have one or more follow-up visits with your healthcare provider. These are needed to checkhow well you re healing. Your drain, stitches, or elizabeth may also be removed during these visits. Do not miss your follow-up visit, even if you are feeling better. Call your healthcare provider right away if you have the following: ? Fever of 100.4 F (38 C) or higher, or as advised by your healthcare provider. ? Chest pain or trouble breathing. ? Pain or tenderness in your leg(s). ? Increased pain, redness, swelling, bleeding, or foul-smelling drainage at the incision site. ? Incision changes, separates or is hot to the touch. ? Problems with the drain if you have one. ? Itchy, swollen skin; skin rash. Medicines, Diet, and Activity: Refer to your discharge paperwork for further instructions [facility]: A waterproof barrier to protect skin and allow bathing. Impregnated with Silver, which gives it antimicrobial properties. Skin friendly, comfortable and flexible. BECAUSE IT IS WATERPROOF THERE ARE NO DRESSING CHANGES. YOU CAN SHOWER POST OP DAY 1. This dressing will stay on until your first follow-up appointment. No dressing changes at home. Call surgeon if dressing becomes saturated beyond borders. Benefits: Reduced surgical site infection, reduced re-admissions, improved healing. * Attachments The following attachments cannot be sent through Care Everywhere. * TKR (Total Knee Replacement): Post-op ([place]) * TKR (Total Knee Replacement): Rehabilitation ([place]) * Constipation ([place]) * DVT (Deep Vein Thrombosis): General Info ([place]) * acetaminophen and oxycodone ([place]) * aspirin (oral) ([place]) * docusate and senna ([place]) documented in this encounter Additional Source Comments (unrecognized sect ion and content) No Status Records FoundNo Status Records FoundNo Status Records FoundNo Status Records Found INFORMATION SOURCE (unrecogn ized section and content) DATE CREATED AUTHOR 03/12/2018 [facility] DATE CREATED AUTHOR AUTHOR'S ORGANIZ ATION 09/23/2020 [facility] Carolyn moran DATE CREATED AUTHOR AUTHOR'S ORGANIZ ATION 07/09/2022 [facility] DATE CREATED AUTHOR AUTHOR'S ORGANIZ ATION 02/22/2023 [facility] Reason for Visit (unrecogniz ed section and content) Status Reason Specialty Diagnoses / Procedures Referre d By Contact Referred To Contact Diagnoses Osteoarthritis of right knee DX OA RIGHT KNEE Procedures MS TOTAL KNEE ARTHROPLASTY RIGHT KNEE TOTAL ARTHROPLASTY- BIOMET Kareem Diaz MD [address] [place] [address] [facility] Ordered Prescriptions (unrec ognized section and content) Prescription Sig Dispensed Refills Start Date End Da te pantoprazole (PROTONIX) 40 MG tablet Take 1 tablet by mouth every morning (before breakfast) for 15 days 15 tablet 1 09/22/2020 10/07/2020 Misc. Devices (WALKER) MISC 1 each by Does not apply route daily 1 each 0 09/21/2020 aspirin 325 MG EC tablet Take 1 tablet by mouth 2 times daily for 14 days 28 tablet 0 09/21/2020 10/05/2020 oxyCODONE-acetaminophen (PERCOCET) 5-325 MG per tabletIndications:Acute postoperative pain,Localized osteoarthritis of right knee Take 1-2 tablets by mouth every 4 hours as needed for Pain for up to 7 days. 50 tablet 0 09/21/2020 09/28/2020 ondansetron (ZOFRAN) 4 MG tablet Take 1 tablet by mouth every 6 hours as needed for Nausea 30 tablet 1 09/21/2020 docusate sodium (COLACE) 100 MG capsule Take 1 capsule by mouth 2 times daily 30 capsule 0 09/21/2020 FOR RECORDS PERTAINING TO PATIENTS WHO ARE OR HAVE BEEN ENROLLED IN A CHEMICAL DEPENDENCY/SUBSTANCEABUSE PROGRAM, SOME INFORMATION MAY BE OMITTED. This clinical summary was aggregated from multiple sources. Caution should be exercised in using it in the provision of clinical care. This summary normalizes information from multiple sources, and as a consequence, information in this document may materially change the coding, format and clinical context of patient data. In addition, data may be omitted in some cases. CLINICAL DECISIONS SHOULD BE BASED ON THE PRIMARY CLINICAL RECORDS. [facility]. provides no warranty or guarantee of the accuracy or completeness of information in this document.
--- NOTE | 2023-10-02 09:30 | XR_ITS ---
The [address] [address] Patient Name: ASAD BOND MRN: [id number] date: 1950 Sex: M Assigned Patient Location: LAB Current Patient Location: LAB Accession/Order Number: [id number] Exam Date: 10/02/2023 09:38 Report Date: 10/02/2023 09:50 At the request of: CHARITY YIN Procedure: XR chest 2V EXAM: Chest x-ray HISTORY: . chronic cough R05.3 . COMPARISON: 10/02/2023 TECHNIQUE: Frontal and lateral chest. FINDINGS: Heart and vascularity are unremarkable. Lungs are free of focal infiltrates. Surgical clips are noted in the left axilla. Median sternotomy sutures are noted. No bony abnormality is appreciated. XR/XR chest 2V Impression: No acute heart or lung disease identified. Electronically authenticated by: ANI ANTHONY Date: 10/02/2023 09:50
== END 2023-10-02 09:24 | disposition home or self-care (01) ==
LOC: LAB 09:24
PROVIDERS: PCP Family Medicine; Visit Provider Family Medicine
DX: R05.3 Chronic cough (principal)
CPT/HCPCS: 71046

== ENCOUNTER 2024-01-02 07:55 | Outpatient (OUT) | payer MEDICARE, OTHER, SELFPAY ==
--- OUTSIDE RECORDS SUMMARY | 2024-01-02 08:14 | XMS_ITS | CCD ---
Author Organization [facility] Care Team Providers Care Die Sinker Apprentice Name Role Phone PHYSICIAN, DEFAULT Unavailable Unavailable PHYSICIAN, DEFAULT Unavailable Unavailable Charity Yin Primary Care Provider [phone] CHARITY YIN Primary Care Unavailable KAREEM DIAZ Referring Unavailable CHARITY YIN Primary Care Unavailable CHARITY YIN Primary Care Unavailable BLOOD, MOMO P Consulting Unavailable DIAZKAREEM W Attending Unavailable KAREEM DIAZ Admitting Unavailable LINDA, TYSON K Consulting Unavailable LADY, JEANNIE Attending Unavailable LADY, JEANNIE Referring Unavailable [...] NASH Consulting Unavailable HOY ., DR NASH Admkaitlyn Unavailable HOY ., DR NASH Attending Unavailable ZIEBER, DR VALERIE Mtz Consulting Unavailable HOY ., DR NASH Primary Care Unavailable HOY ., DR NASH Consulting Unavailable HOY ., DR NASH Admkaitlyn Unavailable HOY ., DR NASH Attending Unavailable WEST, DR ANI Adame Consulting Unavailable HOY ., DR NASH Primary Care Unavailable HOY ., DR NASH Consulting Unavailable HOY ., DR NASH Admitting Unavailable HOY ., DR NASH Attending Unavailable HOY ., DR NASH Primary Care Unavailable HOY ., DR NASH Admitting Unavailable HOY ., DR NASH Attending Unavailable HOY ., DR NASH Consulting Unavailable Charity Yin MD Primary Care Provider [phone] Charity Yin MD Primary Care Provider [phone] JUAN CARLOS ALAS JR Admitting Unavailabl e JUAN CARLOS ALAS JR Attending Unavailabl e ANNAMARIA, CHARITY M Primary Care Unavailable RUDY VIRAMONTES Consulting Unavailable CHON WILKINSON Attending Unavailable CHARITY YIN M Primary Care Unavailable JUAN CARLOS ALAS JR Referring Unavailabl e HORonny, CHARITY M Primary Care Unavailable JUAN CARLOS ALAS JR Referring Unavailabl e HOY, CHARITY M Primary Care Unavailable JUAN CARLOS ALAS JR Attending Unavailabl e STEPJUAN CARLOS QUEZADA JR Referring Unavailabl e HOY, CHARITY M Primary Care Unavailable JUAN CARLOS ALAS JR Attending Unavailabl e JUAN CARLOS ALAS JR Referring Unavailabl e ANNAMARIA, CHARITY M Primary Care Unavailable JUAN CARLOS ALAS JR Attending Unavailabl e JUAN CARLOS ALAS JR Referring Unavailabl e ANNAMARIA, CHARITY M Primary Care Unavailable JUAN CARLOS ALAS JR Attending UnavailJUAN CARLOS Nicolas JR Referring Unavailabl e ANNAMARIA, CHARITY M Primary Care Unavailable JR. ALAS GEORGE C Attending Unavaila val ALAS JR., GEORGE C Referring Unavaila MC Cleary Attending Unavailable SANDRA BURR Attending Unavailable SANDRA BURR Referring Unavailable SANDRA BURR Attending Unavailable BARBY GRIGGS Attending Unavailable JR. ALAS GEORGE C Referring Unavaila BARBY Crandall Attending Unavailable JR. ALAS GEORGE C Referring Unavaila BARBY Crandall Attending Unavailable JR. BISHOP, JUAN CARLOS Fisher Referring Unavaila BARBY Crandall Attending Unavailable JR. ALAS GEORGE C Referring Unavaila LUKE Lynn Attending Unavailable JR. ALAS GEORGE C Referring Unavaila LUKE Lynn Attending Unavailable JR. ALAS GEORGE C Referring Unavaila SANDRA Marsh Attending Unavailable SANDRA BURR Referring Unavailable BARBY GRIGGS Attending Unavailable JR. ALAS GEORGE C Referring Unavaila LUKE Lynn Attending Unavailable JR. BISHOP, JUAN CARLOS Fisher Referring Unavaila SANDRA Marsh Attending Unavailable Medications Current Medications Medication Drug Class(es) Dates Sig (Normalized) Sig (Original) Acetaminophen / HYDROcodone (7 sources) Opioid Agonist Start: 09-22-2020 HYDROcodone-acetam inophen (NORCO) 5-325 MG per tablet 1 tablet End: 09-21-2020 take 1 tablet by mouth every six hours as needed for pain HYDROcodone-acetaminophen (NORCO) 5-325 mg per tablet Take 1 tablet by mouth every 6 (six) hours as needed for pain. 0 Active take 1-2 tablets by mouth every four hours as needed for pain, then take 8 tablets by mouth every twenty-four hours as needed for pain HYDROcodone-acetaminophen ([facility]od) 5-325 MG tablet 1-2 tablets Orally every 4 hrs prn pain not to exceed 8 in 24 hours 0 Active acetaminophen 325 mg / oxyCODONE hydrochloride 5 [...] aspirin 325 mg delayed release oral tablet (8 sources) Platelet Aggregation Inhibitor, Nonsteroidal Anti-inflammator y Drug Start: 09-20-2020 End: 10-05-2020 take 1 tablet by mouth twice daily aspirin 325 MG EC tablet Take 1 tablet by mouth 2 times daily for 14 days 28 tablet 0 09/21/2020 10/05/2020 Active End: 09-21-2020 take 1 tablet by mouth in the morning aspirin 81 mg Take 1 tablet (81 mg total) by mouth in the morning. 0 Active atorvastatin 40 mg oral tablet (7 sources) HMG-CoA Reductase Inhibitor Start: 07-04-2020 take 40 mg by mouth once daily 40 mg, Oral, NIGHTLY, First dose on Sat09/20/20 at 2100, Post-op cetirizine hydrochloride 10 mg chewable tablet (2 sources) Histamine-1 Receptor Antagonist Start: 07-11-2022 cetirizine (ZyrTEC) 10 MG chewable tablet Chew 10 mg in the morning. 0 07/11/2022 Active chlordiazePOXIDE hydrochloride 10 mg oral capsule (4 [...] CLEANUP) docusate sodium 50 mg / sennosides, chcf 8.6 mg oral tablet (1 source) Start: [...] succinate 25 mg extended release oral tablet (7 sources) beta-Adrenerg ic Deondre Start: 01-21-2023 take 0.5 tablet by mouth every twenty-four hours in the morning metoprolol succinate XL (TOPROL XL) 25 mg 24 hr tablet Take 0.5 tablets (12.5 mg total) by mouth in the morning. 0 01/21/2023 Active Start: 01-21-2023 take 0.5 tablet by m outh once daily metoprolol succinate XL (Toprol-XL) 25 MG 24 hr tablet TAKE 1/2 (ONE-HALF) TABLET BY MOUTH ONCE DAILY WITH SUPPER 0 01/21/2023 Active Start: 09-20-2020 12.5 mg, Oral, DAILY WITH [...] 09/21/2020 Active nitroglycerin 0.4 mg sublingual tablet (7 sources) Nitrate Vasodilator Start: 04-25-2020 0.4 mg, Ramos blingual, EVERY 5 MIN PRN, Chest pain, Starting Sat09/20/[address] 1 tablet under tongue upon chest pain, wait 5 minutes and may repeat up to 3 doses in 15 minutes. Do not crush or break. Post-op nitroglycerin (N itrostat) 0.[address] 1 tablet as needed by sublingual route. 0 Active ondansetron 4 mg oral tablet (2 sources) [...] Start: 09-20-2020 promethazine (PHENERGAN) tablet 12.5 mg sildenafil 100 mg oral tablet (3 sources) Phosphodiesterase 5 Inhibitor Start: 02-10-2023 sildenafiL (VIAGRA) 100 mg tablet Take 1 tablet (100 mg total) by mouth as needed. 0 02/10/2023 Active 3 ml sodium chloride 9 mg/ml injection [...] Post-op traZODone hydrochloride 150 mg oral tablet (7 sources) Serotonin Reuptake Inhibitor Start: 09-20-2020 take 150 mg by mouth once daily 150 mg, Oral, NIGHTLY, First dose on Sat09/20/20 at 2100, Post-op take 1 tablet by mouth once melani y traZODone (DESYREL) 50 mg tablet Take 50 mg by mouth nightly. 0 Active take 1 tablet by mouth at bedtim e traZODone (Desyrel) 100 MG tablet TAKE 1 & 1 2 (ONE & ONE HALF) TABLETS BY MOUTH AT BEDTIME 0 Active traZODone (DESYR EL) 100 MG tablet Take [...] Classification Problem Date Documented Da te Episodic/Chronic Cataract (2 sources) Bilateral age-related nuclear cataracts; Translations: [Age-related nuclear cataract, bilateral] Onset: 06-03-2023 06-03-2023 Chronic Complication of device; implant or graft (2 sources) Coronary artery bypass graft occlusion; Translations: [Other specified complication of vascular prosthetic devices, implants and grafts, initial encounter] Onset: 06-03-2023 06-03-2023 Chronic Coronary atherosclerosis and other heart disease (11 sources) Coronary arteriosclerosis; Translations: [Atherosclerotic heart disease of [place] coronary artery without angina pectoris] Onset: 04-10-2019 09-20-2020 Chronic Disorders of lipid metabolism (7 sources) Hyperlipidemia; Translations: [Hyperlipidemia, unspecified] Onset: 11-18-2022 09-20-2020 Chronic Essential hypertension (4 sources) Hypertensive disorder; Translations: [Essential (primary) hypertension] Onset: 06-03-2023 06-03-2023 Chronic Genitourinary symptoms and ill-defined conditions (3 sources) Nocturia; Translations: [Increased frequency of urination] Onset: 11-18-2022 11-05-2023 Episodic Mood disorders (2 sources) Mood swings; Translations: [Mood swings] 09-20-2020 Chronic Nutritional deficiencies (1 source) Vitamin D deficiency, unspecified; Translations: [VITAMIN D DEFICIENCY UNSPECIFIED] Onset: 11-18-2022 Chronic Osteoarthritis (20 sources) Osteoarthritis of knee; 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, left wrist] Onset: 09-20-2020 09-20-2020 Chronic Other acquired deformities (2 sources) Unspecified acquired deformity of right forearm; Translations: [Unspecified acquired deformity of right forearm] Onset: 07-05-2022 Episodic Other acquired deformities (2 sources) Unspecified acquired deformity of left forearm; Translations: [Unspecified acquired deformity of left forearm] Onset: 07-05-2022 Episodic Other connective tissue disease (1 source) Presence of left artificial knee joint; Translations: [Presence of left artificial knee joint] Onset: 11-19-2023 Chronic Other nervous system disorders (1 source) Acute postoperative pain; Translations: [Acute postoperative pain] Episodic Other non-traumatic joint disorders (4 sources) Other specified arthritis, left knee; Translations: [OTHER SPECIFIED ARTHRITIS LEFT KNEE] Onset: 11-19-2022 Chronic Other non-traumatic joint disorders (4 sources) Pain in left knee; Translations: [Pain in joint, lower leg] Onset: 12-03-2022 10-23-2023 Episodic Residual codes; unclassified (2 sources) Pain, unspecified; Translations: [Pain, unspecified] Onset: 07-05-2022 Episodic Unclassified (1 source) Patient encounter status; Translations: [Preop testing] Unclassified (2 sources) Delayed recovery from general anesthesia; Translations: [Prolonged emergence from general anesthesia] 09-20-2020 Unclassified (3 sources) CONTACT W/AND (SUSP) EXPOS COVID-19; Translations: [CONTACT W/AND (SUSP) EXPOS COVID-19] Onset: 09-14-2022 Unclassified (1 source) left knee degenerative joint disease, right knee adhesive capsulitis Onset: 11-19-2023 Past or Other Problems Problem Classification Problem Date Documented Da te Episodic/Chronic Blindness and vision defects (6 sources) Presbyopia; Translations: [Presbyopia] Onset: 06-03-2023 06-03-2023 Episodic Complications of surgical procedures or medical care (2 sources) Delayed recovery from general anesthesia; Translations: [Other complications of anesthesia, initial encounter] Onset: 06-03-2023 06-03-2023 Episodic Coronary atherosclerosis and other heart disease (1 source) Presence of aortocoronary bypass graft; Translations: [PRESENCE AORTOCORONARY BYPASS GRAFT] Onset: 11-18-2022 Episodic Diabetes mellitus without complication (1 source) Other abnormal glucose; Translations: [OTHER ABNORMAL GLUCOSE] Onset: 11-18-2022 Episodic Mood disorders (2 sources) Mood swings; Translations: [Emotional lability] Onset: 06-03-2023 06-03-2023 Episodic Other connective tissue disease (4 sources) Fibromyalgia; Translations: [Fibromyalgia] Onset: 06-03-2023 09-20-2020 Episodic Other connective tissue disease (2 sources) Full thickness rotator cuff tear; Translations: [Complete rotator cuff tear or rupture of left shoulder, not specified as traumatic] Onset: 06-03-2023 06-03-2023 Episodic Other screening for suspected conditions (not [...] Name Value Interpretation Reference Range Facil ity HGB AND HCTon 11-21-2023 Hematocrit (Bld) [Volume fraction] 36.0 % Low 39-49 [facility] Comment on above: Performed By: #### H H #### [facility] ([id number]) [address] [place] [address], [place] [address] Hemoglobin (Bld) [Mass/Vol] 12.3 g/dL Low 13.0-17.0 [facility] Comment on above: Performed By: #### H H #### [facility] ([id number]) [address] [place] [address] HGB AND HCTon 11-20-2023 Hematocrit (Bld) [Volume fraction] 37.5 % Low 39-49 [facility] Comment on above: Performed By: #### H H #### [facility] ([id number]) [address] [place] [address] Hemoglobin (Bld) [Mass/Vol] 12.9 g/dL Low 13.0-17.0 [facility] Comment on above: Performed By: #### H H #### [facility] ([id number]) [address] [place] [address] HGB AND HCTon 11-19-2023 Hematocrit (Bld) [Volume fraction] 42.5 % Normal 39-49 [facility] Comment on above: Performed By: #### H H #### [facility] ([id number]) [address] [place] [address] Hemoglobin (Bld) [Mass/Vol] 14.3 g/dL Normal 13.0-17.0 [facility] Comment on above: Performed By: #### H H #### [facility] ([id number]) [address] [place] [address] XR KNEE LT 1 OR 2 VWSon 03-0 XR KNEE LT 1 OR 2 VWS XR KNEE LT 1 OR 2 VWS History: Postop follow-up. Pain Study: Left knee Two view study. Impression: Total knee arthroplasty has been performed. The femoral and tibial components are excellent position. No fracture. No acute hardware complication is seen. Skin elizabeth are noted. Follow-up is planned. 16 Finalized by Janette Fletcher MD on 11/19/2023 2:43 PM Normal [facility] XR BONE LENGTH STUDYon 11-10 XR BONE LENGTH STUDY XR BONE LENGTH STUDY CLINICAL INFORMATION:[place] artery disease involving [place] coronary artery of [place] heart without angina pectoris; Preop examination; Urinary frequency; Hypertension, unspecified type COMPARISON: 03/22/23. PROCEDURE: AP upright scanogram of the bilateral lower extremities was obtained. Examination performed for evaluation of alignment. IMPRESSION: * Right knee arthroplasty. Postoperative changes in the distal right tibia. Cortical deformity of the right distal tibia and fibula with surgical clips. Mild 1 degree varus alignment right knee. Severe medial compartment degenerative changes left knee, with mild, 1 degree varus alignment. 99 Finalized by Mc Meraz MD on 11/10/2023 2:18 PM Normal [facility] Bacteria identified Cx Nom ( U)on 11-09-2023 Service comment (Unsp spec) [Interp] <10,000 ORGANISMS/ML NORMAL URO GENITAL BEST [facility] BASIC METABOLIC PANLon 11-08 Anion gap [Moles/Vol] 7 mmol/L Normal 5-15 [facility] Comment on above: Performed By: #### C BCA, BMP #### [facility] ([id number]) [address], [address] [place] [address] Calcium [Mass/Vol] 10.0 mg/dL Normal 8.5-10.5 [facility] Comment on above: Performed By: #### C BCA, BMP #### [facility] ([id number]) [address], [address] [place] [address] Chloride [Moles/Vol] 101 mmol/L Normal 98-109 [facility] Comment on above: Performed By: #### C BCA, BMP #### [facility] ([id number]) [address], [address] [place] [address] CO2 [Moles/Vol] 30 mmol/L Normal 22-32 [facility] Comment on above: Performed By: #### C BCA, BMP #### [facility] ([id number]) [address], [address] [place] [address] Creatinine [Mass/Vol] 0.92 mg/dL Normal 0.60-1.30 [facility] Comment on above: Result Comment: METH OD TRACEABLE TO IDMS STANDARD Performed By: #### C BCA, BMP #### [facility] ([id number]) [address], [address] [place] [address] GFR/1.73 sq M.predicted among non-blacks MDRD (S/P/Bld) [Vol rate/Area] 88 mL/min/{1.73_m2} Normal >59 [facility] Comment on above: Result Comment: Reported eGFR is based on the CKD-EPI 2020 equation that does not use a race coefficient. Performed By: #### C BCA, BMP #### [facility] ([id number]) [address], [address] [place] [address] Glucose [Mass/Vol] 94 mg/dL Normal 65-99 [facility] Comment on above: Performed By: #### C BCA, BMP #### [facility] ([id number]) [address], [address] [place] [address] Potassium [Moles/Vol] 4.7 mmol/L Normal 3.5-5.0 [facility] Comment on above: Performed By: #### C BCA, BMP #### [facility] ([id number]) [address], [address] [place] [address] Sodium [Moles/Vol] 138 mmol/L Normal 134-146 [facility] Comment on above: Performed By: #### C BCA, BMP #### [facility] ([id number]) [address], [address] [place] [address] Urea nitrogen [Mass/Vol] 23 mg/dL Normal 5-27 [facility] Comment on above: Performed By: #### C BCA, BMP #### [facility] ([id number]) [address], [address] [place] [address] Basic Metabolic Panelon 10-18 Anion gap [Moles/Vol] 7 mmol/L 5 - 15 mmol/L [facility] Calcium [Mass/Vol] 10.0 mg/dL 8.5 - 10. 5 mg/dL [facility] Chloride [Moles/Vol] 101 mmol/L 98 - 109 mmol/L [facility] CO2 [Moles/Vol] 30 mmol/L 22 - 32 mmol/L [facility] Creatinine [Mass/Vol] 0.92 mg/dL 0.60 - 1.30 mg/dL [facility] Comment on above: METHOD TRACEABLE TO IDDC STANDARD eGFR (CKD-EPI)non-race dependent 88 - PINF [facility] Comment on above: Reported eGFR is based on the CKD-EPI 2020 equation that does not use a race coefficient. Glucose [Mass/Vol] 94 mg/dL 65 - 99 mg/dL [facility] Potassium [Moles/Vol] 4.7 mmol/L 3.5 - 5.0 mmol/L [facility] Sodium [Moles/Vol] 138 mmol/L 134 - 146 mmol/L [facility] Urea nitrogen [Mass/Vol] 23 mg/dL 5 - 27 mg/dL [facility] CBC AND AUTO DIFFon 11-08-19 ABSOLUTE BASOPHIL 0.0 X10E9/L Normal 0.0-0.2 [facility] Comment on above: Performed By: #### C BCA, BMP #### [facility] ([id number]) [address], [address] [place] [address] ABSOLUTE NEUTROPHIL 6.9 X10E9/L High 1.5-6.6 [facility] Comment on above: Performed By: #### Natalia BCA, BMP #### [facility] ([id number]) [address], [address] [place] [address] Basophils/100 WBC (Bld) 0.4 % Normal [facility] Comment on above: Performed By: #### Natalia BCA, BMP #### [facility] ([id number]) [address], [address] [place] [address] Eosinophils (Bld) [#/Vol] 0.0 10*3/uL Normal 0.0-0.4 [facility] Comment on above: Performed By: #### Natalia SAINZ, BMP #### [facility] ([id number]) [address], [facility] [address] [place] [address] Eosinophils/100 WBC (Bld) 0.6 % Normal [facility] Comment on above: Performed By: #### C ALISTAIR, BMP #### [facility] ([id number]) [address] [address] [place] [address] Erythrocyte distribution width (RBC) [Ratio] 13.3 % Normal 11.5-15.0 [facility] Comment on above: Performed By: #### C ALISTAIR, BMP #### [facility] ([id number]) [address] [address] [place] [address] Hematocrit (Bld) [Volume fraction] 45.3 % Normal 39-49 [facility] Comment on above: Performed By: #### Natalia SAINZ, BMP #### [facility] ([id number]) [address] [address] [place] [address] Hemoglobin (Bld) [Mass/Vol] 15.3 g/dL Normal 13.0-17.0 [facility] Comment on above: Performed By: #### Natalia SAINZ, BMP #### [facility] ([id number]) [address] [address] [place] [address] Lymphocytes (Bld) [#/Vol] 1.1 10*3/uL Normal 1.0-3.5 [facility] Comment on above: Performed By: #### Natalia SAINZ, BMP #### [facility] ([id number]) [address] [address] [place] [address] Lymphocytes/100 WBC (Bld) 12.3 % Normal [facility] Comment on above: Performed By: #### C ALSITAIR, BMP #### [facility] ([id number]) [address], [address] [place] [address] MCH (RBC) [Entitic mass] 32.3 pg Normal 27-34 [facility] Comment on above: Performed By: #### C ALISTAIR, BMP #### [facility] ([id number]) [address] [place] [address] MCHC (RBC) [Mass/Vol] 33.7 g/dL Normal 32-36 [facility] Comment on above: Performed By: #### C ALISTAIR, BMP #### [facility] ([id number]) [address], [address] [place] [address] MCV (RBC) [Entitic vol] 96 fL Normal 80-100 [facility] Comment on above: Performed By: #### Natalia SAINZ, BMP #### [facility] ([id number]) [address], [address] [place] [address] Monocytes (Bld) [#/Vol] 0.8 10*3/uL Normal 0-0.9 [facility] Comment on above: Performed By: #### C ALISTAIR, BMP #### [facility] ([id number]) [address] [place] [address] Monocytes/100 WBC (Bld) 9.0 % Normal [facility] Comment on above: Performed By: #### Natalia SAINZ, BMP #### [facility] ([id number]) [address] [place] [address] Neutrophils/100 WBC (Bld) 77.7 % Normal [facility] Comment on above: Performed By: #### Natalia SAINZ, BMP #### [facility] ([id number]) [address] [place] [address] Platelet mean volume (Bld) [Entitic vol] 8.9 fL Normal 7-12 [facility] Comment on above: Performed By: #### C BCA, BMP #### [facility] ([id number]) [address], [address] [place] [address] Platelets (Bld) [#/Vol] 257 10*3/uL Normal 150-450 [facility] Comment on above: Performed By: #### Natalia SAINZ, BMP #### [facility] ([id number]) [address], [address] [place] [address] RBC COUNT 4.73 X10E12/L Normal 4.10-5.70 [facility] Comment on above: Performed By: #### Natalia SAINZ, BMP #### [facility] ([id number]) [address], [address] [place] [address] WBC (Bld) [#/Vol] 8.9 10*3/uL Normal 4.0-11.0 [facility] Comment on above: Performed By: #### Natalia SAINZ, BMP #### [facility] ([id number]) [address], [address] [place] [address] CBC auto differentialon 10-18 Basophils (Bld) [#/Vol] 0.0 10*3/uL [facility] Basophils/100 WBC (Bld) 0.4 % [facility] Eosinophils (Bld) [#/Vol] 0.0 10*3/uL [facility] Eosinophils/100 WBC (Bld) 0.6 % [facility] Erythrocyte distribution width (RBC) [Ratio] 13.3 % 11.5 - 15.0 % [facility] Hematocrit (Bld) [Volume fraction] 45.3 % 39 - 49 % [facility] Hemoglobin (Bld) [Mass/Vol] 15.3 g/dL 13.0 - 17.0 g/dL [facility] Interpretation and review of laboratory results Abnormal [facility] Lymphocytes (Bld) [#/Vol] 1.1 10*3/uL [facility] Lymphocytes/100 WBC (Bld) 12.3 % [facility] MCH (RBC) [Entitic mass] 32.3 pg 27 - 34 pg [facility] MCHC (RBC) [Mass/Vol] 33.7 g/dL 32 - 36 g/dL [facility] MCV (RBC) [Entitic vol] 96 fL 80 - 100 fL [facility] Monocytes (Bld) [#/Vol] 0.8 10*3/uL [facility] Monocytes/100 WBC (Bld) 9.0 % [facility] Neutrophils (Bld) [#/Vol] 6.9 10*3/uL High [facility] Neutrophils/100 WBC (Bld) 77.7 % [facility] Platelet mean volume (Bld) [Entitic vol] 8.9 fL 7 - 12 fL [facility] Platelets (Bld) [#/Vol] 257 10*3/uL [facility] [place] RBC (Bld) [#/Vol] 4.73 10*6/uL [facility] WBC corrected for nucl RBC Auto (Bld) [#/Vol] 8.9 [facility] ECG 12 leadon 11-08-2023 TRACEMASTERVUE [facility] Type and screen(includes ind irect wanda)on 11-08-2023 ABO O [facility] Rh Nom (Bld) Positive [facility] URINALYSISon 11-08-2023 Bilirubin Ql (U) Negative Normal NEG [facility] BLOOD/HGB Negative Normal NEG [facility] Color (U) YELLOW Normal YELLOW [facility] Glucose Ql (U) Negative Normal NEG [facility] Ketones Ql (U) Negative Normal NEG [facility] Leukocyte esterase Test strip Ql (U) Negative Normal NEG [facility] Nitrite Ql (U) Negative Normal NEG [facility] pH (U) 6.0 [pH] Normal 5.0-8.5 [facility] Protein Ql (U) Negative Normal NEG [facility] Specific gravity (U) [Rel density] 1.010 Normal 1.003-1.035 [facility] TURBIDITY CLEAR Normal CLEAR [facility] Urobilinogen (U) [Mass/Vol] mg/dL Normal <1.1 [facility] URINE CULTUREon 11-08-2023 Bacteria identified Cx Nom (U) CULTURE RESULTS <10,000 ORGANISMS/ML NORMAL URO GENITAL BEST Normal [facility] Comment on above: Performed By: #### 6 30-4 #### [facility] ([id number]) [address], [address] [place] [address] Urinalysison 11-08-2023 Bilirubin Ql (U) Negative Negative^Ne gati ve [facility] Color (U) YELLOW YELLOW^YELLOW [facility]alt System Glucose (U) [Mass/Vol] Negative Negative^Negati ve mg/dL [facility] [place] Hemoglobin Auto test strip Ql (U) Negative Negative^Negati ve [facility] Ketones (U) [Mass/Vol] Negative Negative^Negati ve mg/dL [facility] [place] Leukocyte esterase Auto test strip Ql (U) Negative Negative^Negati ve [facility] Nitrite Auto test strip Ql (U) Negative Negative^Negati ve [facility] pH (U) 6.0 [pH] 5.0 - 8.5 [facility] Protein (U) [Mass/Vol] Negative Negative^Negati ve mg/dL [facility] Specific gravity Refractometry automated (U) [Rel density] 1.010 1.003 - 1.035 [facility] [place] Turbidity Ql (U) CLEAR CLEAR^CLEAR [facility] Urobilinogen Qn (U) NINF [facility] XR Knee - left 1 or 2 Viewso n 10-23-2023 Imaging Result: AP and lateral views of left knee showed severe varus deformity with [id number] articulation to the medial joint line, flattening of the articular surfaces to the medial joint line lateral joint line and patellofemoral joint. Subchondral sclerosis was noted at the medial joint line surfaces as well as the lateral joint line and patellofemoral joint. Marginal osteophytic formation was noted tricompartmentally . There is no evidence of fracture or dislocation. Impression: severe degenerative joint disease left knee with varus deformity [facility] Playdomcar e Radiology Study observation (narrative) [facility] MRI KNEE LT WO CONon 023 MRI [...] by: VALERIE CHRISTY Date: 2022-11-27 08:55 Normal [facility] OCC BLD IMMUNO SCREENon 03-0 OCCULT BLOOD Negative Normal NEGATIVE [facility] Comment on above: Performed By: #### O BSCRN #### [facility] [address] [place], [place] [address] Dr. Ankit Peters INSULINon 11-15-2022 Insulin 12.6 uIU/mL Normal 2.6-24.9 [facility] Comment on above: Performed By: #### I NSULIN ####[facility] [address] [place], [place] [address]FkDr. Ankit Peters CBC AUTO DIFFon 03-01-2023 BASO # 0.0 103/ul Normal 0.0-0.1 [facility] Comment on above: Performed By: #### C BC ####[facility] [address] [place] [address]Dr. Ankit Peters Basophils/100 WBC (Bld) 0.5 % Normal 0.2-2.0 [facility] Comment on above: Performed By: #### C BC ####[facility] [address] [place], [place] [address]Dr. Ankit Peters EO # 0.1 103/ul Normal 0.0-0.7 [facility] Comment on above: Performed By: #### C BC ####[facility] [address] [place], [place] [address]Dr. Ankit Peters Eosinophils/100 WBC (Bld) 2.0 % Normal 0.9-7.0 [facility] Comment on above: Performed By: #### C BC ####[facility] [address] [place], [place] [address]Dr. Ankit Peters Erythrocyte distribution width (RBC) [Ratio] 12.6 % Normal 11.0-15.0 [facility] Comment on above: Performed By: #### C BC ####[facility] [address] [place], [place] [address]Dr. Ankit Peters Hematocrit (Bld) [Volume fraction] 46.6 % Normal 42.0-54.0 [facility] Comment on above: Performed By: #### C BC ####[facility] [address] [place], [place] [address]Dr. Ankit Peters Hemoglobin (Bld) [Mass/Vol] 15.3 g/dL Normal 14.0-18.0 [facility] Comment on above: Performed By: #### C BC ####[facility] [address] [place], [place] [address]Dr. Ankit Peters IG # 0.02 10e3/ul Normal 0.00-0.03 [facility] Comment on above: Performed By: #### C BC ####[facility] [address] [place], [place] [address]DrCarolyn Peters IG % 0.3 % Normal 0.0-0.5 [facility] Comment on above: Performed By: #### C BC ####[facility] [address] [place] [address]DrCarolyn Peters LYMPH # 1.4 103/ul Normal 1.2-3.8 [facility] Comment on above: Performed By: #### C BC ####[facility] [address] [place] [address]DrCarolyn Peters Lymphocytes/100 WBC (Bld) 21.5 % Normal 20.5-60.0 [facility] Comment on above: Performed By: #### C BC ####[facility] [address] [place], [place] [address]DrCarolyn Peters MANUAL DIFF REQ NO Normal [facility] Comment on above: Performed By: #### C BC ####[facility] [address] [place], [place] [address]DrCarolyn Peters MCH (RBC) [Entitic mass] 31.6 pg Normal 25.9-34.0 [facility] Comment on above: Performed By: #### C BC ####[facility] [address] [place], [place] [address]DrCarolyn Peters MCHC (RBC) [Mass/Vol] 32.8 g/dL Normal 29.9-35.2 [facility] Comment on above: Performed By: #### C BC ####[facility] [address] [place], [place] [address]DrCarolyn Peters MCV (RBC) [Entitic vol] 96.3 fL Critically high 80.0-94.0 [facility] Comment on above: Performed By: #### C BC ####[facility] [address] [place], [place] [address]DrCarolyn Peters MONO # 0.6 103/ul Normal 0.3-0.8 [facility] Comment on above: Performed By: #### C BC ####[facility] [address] [place], [place] [address]DrCarolyn Peters Monocytes/100 WBC (Bld) 9.3 % Normal 1.7-12.0 [facility] Comment on above: Performed By: #### C BC ####[facility] [address] [place] [id number] Guerreroradha Peters NEUT # 4.4 103/ul Normal 1.4-6.5 [facility] Comment on above: Performed By: #### C BC ####[facility] [address] [place] [id number] Peters Neutrophils/100 WBC (Bld) 66.4 % Normal 43.0-75.0 [facility] Comment on above: Performed By: #### C BC ####[facility] [address] [place] [address]Dr. Ankit Peters Platelet mean volume (Bld) [Entitic vol] 9.5 fL Normal 9.5-13.5 [facility] Comment on above: Performed By: #### C BC ####[facility] [address] [place] [address]DrCarolyn Peters PLT 234 103/ul Normal 150-450 [facility] Comment on above: Performed By: #### C BC ####[facility] [address] [place] [id number]. Ankit Peters RBC 4.84 106/ul Normal 4.70-6.10 [facility] Comment on above: Performed By: #### C BC ####[facility] [address] [place] [id number] Peters WBC 6.6 103/ul Normal 4.0-11.0 [facility] Comment on above: Performed By: #### C BC ####[facility] [address] [place] [id number]. Ankit Peters FREE THYROXINE INDEX T7on FTI 2.82 Normal 1.30-4.50 [facility] Comment on above: Performed By: #### L IPID, URIC, CMP, TSH, T7 #### [facility] [address] [place], [place] [address] Dr. Ankit Peters T3U 34.0 % Normal 33.0-40.0 [facility] Comment on above: Performed By: #### L IPID, URIC, CMP, TSH, T7 #### [facility] [address] [place] [address] [address] Ankit Peters T4 [Mass/Vol] 8.30 ug/dL Normal 4.50-12.10 [facility] Comment on above: Performed By: #### L IPID, URIC, CMP, TSH, T7 #### [facility] [address] [place] [address] Dr. Ankit Peters GLYCOHEMOGLOBIN A1Con 2022 ADA RECOMMENDATION SEE BELOW Normal [facility] Comment on above: Result Comment: ADA RECOMMENDED LIMIT 4.0 - 6.0 ADA THERAPEUTIC TARGET < 7.0 ACTION SUGGESTED > 7.0 Performed By: #### A 1C #### [facility] [address] [place] [address] Dr. Ankit Peters Glucose [Mass/Vol] 105 mg/dL Normal [facility] Comment on above: Performed By: #### A 1C #### [facility] [address] [place] [address] Dr. Ankit Peters HbA1c (Bld) [Mass fraction] 5.3 % Normal 4.5-6.2 [facility] Comment on above: Performed By: #### A 1C #### [facility] [address] [place] [address] Dr. Ankit Peters LIPID PROFILEon 11-14-2022 CHOL-HDL RATIO NORM SEE BELOW Normal [facility] Comment on above: Result Comment: 3.3 - 4.4 LOW RISK 4.4 - 7.1 AVERAGE RISK 7.1 - 11.0 MODERATE RISK >11.0 HIGH RISK Performed By: #### L IPID, URIC, CMP, TSH, T7 #### [facility] [address] [place] [address] Dr. Ankit Peters Cholesterol [Mass/Vol] 154 mg/dL Normal <=200 [facility] Comment on above: Performed By: #### L IPID, URIC, CMP, TSH, T7 #### [facility] [address] [place] [address] [address] Ankit Peters Cholesterol in HDL [Mass/Vol] 55 mg/dL Normal 40-60 [facility] Comment on above: Performed By: #### L IPID, URIC, CMP, TSH, T7 #### [facility] [address] [address] [address] Ankit Peters Cholesterol in LDL [Mass/Vol] 84.2 mg/dL Normal [facility] Comment on above: Performed By: #### L IPID, URIC, CMP, TSH, T7 #### [facility] [address] [place] [address] [address] Ankit Peters Cholesterol.total/C holesterol in HDL [Mass ratio] 2.8 {ratio} Normal [facility] Comment on above: Performed By: #### L IPID, URIC, CMP, TSH, T7 #### [facility] [address] [place] [address] [address] Ankit Peters HDL NORMAL > or = 60 mg/dl - LOW CARDIOVASCULAR RISK <40 mg/dl - HIGH CARDIOVASCULAR RISK Normal [facility] Comment on above: Performed By: #### L IPID, URIC, CMP, TSH, T7 #### [facility] [address] [place] [address] [address] Ankit Peters LDL CALC NORMAL SEE BELOW Normal [facility] Comment on above: Result Comment: <100 mg/dl OPTIMAL 100 - 129 mg/dl NEAR OR ABOVE OPTIMAL 130 - 159 mg/dl BORDERLINE HIGH 160 - 189 mg/dl HIGH >190 mg/dl VERY HIGH Performed By: #### L IPID, URIC, CMP, TSH, T7 #### [facility] [address] [address] [address] Ankit Peters Triglyceride [Mass/Vol] 74 mg/dL Normal <=150 [facility] Comment on above: Performed By: #### L IPID, URIC, CMP, TSH, T7 #### [facility] [address] [place] [address] [address] Ankit Peters VLDL CALC 14.8 mg/dL Normal [facility] Comment on above: Performed By: #### L IPID, URIC, CMP, TSH, T7 #### [facility] [address] [place] [address] Dr. Ankit Peters PROF 14(COMP METB)on 023 Albumin [Mass/Vol] 4.1 g/dL Normal 3.4-5.0 [facility] Comment on above: Performed By: #### L IPID, URIC, CMP, TSH, T7 #### [facility] [address] [place] [address] Dr. Ankit Peters Albumin/Globulin [Mass ratio] 1.2 {ratio} Normal [facility] Comment on above: Performed By: #### L IPID, URIC, CMP, TSH, T7 #### [facility] [address] [place] [address] Dr. nAkit Peters ALP [Catalytic activity/Vol] 65 U/L Normal 46-116 [facility] Comment on above: Performed By: #### L IPID, URIC, CMP, TSH, T7 #### [facility] [address] [place] [address] Dr. Ankit Peters ALT [Catalytic activity/Vol] 36 U/L Normal 16-63 [facility] Comment on above: Performed By: #### L IPID, URIC, CMP, TSH, T7 #### [facility] [address] [place] [address] Dr. Ankit Peters Anion gap [Moles/Vol] 9.1 mmol/L Normal [facility] Comment on above: Performed By: #### L IPID, URIC, CMP, TSH, T7 #### [facility] [address] [place] [address] Dr. Ankit Peters AST [Catalytic activity/Vol] 29 U/L Normal 15-37 [facility] Comment on above: Performed By: #### L IPID, URIC, CMP, TSH, T7 #### [facility] [address] [place] [address] Dr. Ankit Peters Bilirubin [Mass/Vol] 0.6 mg/dL Normal 0.2-1.0 [facility] Comment on above: Performed By: #### L IPID, URIC, CMP, TSH, T7 #### [facility] [address] [place] [address] Dr. Ankit Peters Calcium [Mass/Vol] 9.4 mg/dL Normal 8.5-10.1 [facility] Comment on above: Performed By: #### L IPID, URIC, CMP, TSH, T7 #### [facility] [address] [place] [address] Dr. Ankit Peters Chloride [Moles/Vol] 104 mmol/L Normal 98-107 [facility] Comment on above: Performed By: #### L IPID, URIC, CMP, TSH, T7 #### [facility] [address] [place] [address] Dr. Ankit Peters CO2 [Moles/Vol] 30.2 mmol/L Normal 21.0-32.0 [facility] Comment on above: Performed By: #### L IPID, URIC, CMP, TSH, T7 #### [facility] [address] [place] [address] Dr. Ankit Peters Creatinine [Mass/Vol] 0.90 mg/dL Normal 0.70-1.30 [facility] Comment on above: Performed By: #### L IPID, URIC, CMP, TSH, T7 #### [facility] [address] [place] [address] Dr. Ankit Peters EGFR-AF GHANAIAN >60 Normal >=60 [facility] Comment on above: Performed By: #### L IPID, URIC, CMP, TSH, T7 #### [facility] [address] [place] [address] Dr. Ankit Peters EGFR-NON AF GHANAIAN >60 Normal >=60 [facility] Comment on above: Performed By: #### L IPID, URIC, CMP, TSH, T7 #### [facility] [address] [place] [address] Dr. Ankit Peters Globulin (S) [Mass/Vol] 3.4 g/dL Normal [facility] Comment on above: Performed By: #### L IPID, URIC, CMP, TSH, T7 #### [facility] [address] [place] [address] Dr. Ankit Peters Glucose [Mass/Vol] 97 mg/dL Normal 74-[address] [facility] Comment on above: Performed By: #### L IPID, URIC, CMP, TSH, T7 #### [facility] [address] [place] [address] Dr. Ankit Peters Potassium [Moles/Vol] 4.3 mmol/L Normal 3.5-5.1 [facility] Comment on above: Performed By: #### L IPID, URIC, CMP, TSH, T7 #### [facility] [address] [place] [address] Dr. Ankit Peters Protein [Mass/Vol] 7.5 g/dL Normal 6.4-8.[address] [facility] Comment on above: Performed By: #### L IPID, URIC, CMP, TSH, T7 #### [facility] [address] [place] [address] Dr. Ankit Peters Sodium [Moles/Vol] 139 mmol/L Normal 136-[address] [facility] Comment on above: Performed By: #### L IPID, URIC, CMP, TSH, T7 #### [facility] [address] [place] [address] Dr. Ankit Peters Urea nitrogen [Mass/Vol] 17.0 mg/dL Normal 7.0-18.0 [facility] Comment on above: Performed By: #### L IPID, URIC, CMP, TSH, T7 #### [facility] [address] [place] [address] Dr. Ankit Peters Urea nitrogen/Creatinine [Mass ratio] 18.9 mg/mg Normal [facility] Comment on above: Performed By: #### L IPID, URIC, CMP, TSH, T7 #### [facility] [address] [place] [address] Dr. Ankit Peters TSHon 11-14-2022 TSH 3.285 uIU/mL Normal 0.358-3.740 [facility] Comment on above: Performed By: #### L IPID, URIC, CMP, TSH, T7 #### [facility] [address] [place] [address] Dr. Ankit Peters URIC ACID SERUMon 11-14-2022 Urate [Mass/Vol] 4.8 mg/dL Normal 3.5-7.2 [facility] Comment on above: Performed By: #### L IPID, URIC, CMP, TSH, T7 #### [facility] [address] [place], [place] [address] Dr. Ankit Peters VITAMIN D 25 OHon 11-14-2022 VIT D 25-OH 41.4 ng/mL Normal [facility] Comment on above: Performed By: #### V ITAD, PSASC ####[facility] [address] [place], [place] [address]Ct. Ankit Peters VIT D RANGES SEE BELOW Normal [facility] Comment on above: Result Comment: <20 ng/mL Vit D deficient 20 - <30 ng/mL Vit D insufficient 30 - 100 ng/mL Vit D sufficient >100 ng/mL Potential Toxicity Performed By: #### V ITAD, PSASC ####[facility] [address] [place], [place] [address]WtCarolyn Peters [facility] 08-17 SARS-CoV-2 (COVID-19) RNA KANDICE+probe Ql (Unsp spec) Not detected Normal NOT DETECTED [facility] Comment on above: Result Comment: This test is not yet approved or cleared by the [place] FDA. When there are no FDA-approved or cleared tests available, and other criteria are met, FDA can make tests available under an emergency access mechanism called an Emergency Use Authorization (EUA). The EUA for this test is supported by the Education Rn of Health and Human Service's (HHS's) declaration [...] with SARS-CoV-2. Performed By: #### C VDTBH ####[facility] [address] [place], [place] [address]Dr. Ankit Peters INFLUENZA A AND B AGon 09-11 INFLUANEGH SEE BELOW Normal [facility] Comment on above: Result Comment: Nega tive for Flu A protein angiten. Infection due to Flu A cannot be ruled out. Flu A angiten in the sample may be below the detection limit of the test. Performed By: #### I NFLUAB ####[facility] [address] [place], [place] [address]Dr. Ankit Peters INFLUBNEGH SEE BELOW Normal [facility] Comment on above: Result Comment: Nega tive for Flu B protein antigen. Infection due to Flu B cannot be ruled out. Flu B antigen in the sample may be below the detection limit of the test. Performed By: #### I NFLUAB ####[facility] [address] [place], [place] [address]Dr. Ankit [facility] INFLUENZA A AG Negative Normal NEGATIVE SEE COMMENT [facility] Comment on above: Performed By: #### I NFLUAB ####[facility] [address] [place], [place] [address]Dr. Ankit [facility] INFLUENZA B AG Negative Normal NEGATIVE SEE COMMENT [facility] Comment on above: Performed By: #### I NFLUAB ####[facility] [address] [place], [place] [address]Dr. Ankit [facility] INTERNAL CONTROLS Within Normal Limits Normal Within Normal Limits [facility] Comment on above: Performed By: #### I NFLUAB ####[facility] [address] [place], [place] [address]Dr. Ankit Peters Office Visiton 07-05-2022 Follow-up visit [id number] Levon Bond 1950 M Date Provider Department Center 07/05/2022 BHUPENDRA VELAZQUEZ [facility]THO MPORTHO No family history on file Level of Service:50226 [place] OFFICE/OUTPATIENT NEW MODERATE MDM 45-59 MINUTES Reason for Visit and Comments: Pain [136] Pain [136] Normal [facility] Basic Metabolic Panelon 01-0 Anion gap [Moles/Vol] 7 mmol/L Low 9 - 17 mmol/L [place], [place] Bun/Cre Ratio 17 [place], [place] Calcium [Mass/Vol] 9.1 mg/dL 8.6 - 10. 4 mg/dL [place], [place] Chloride [Moles/Vol] 99 mmol/L 98 - 107 mmol/L [place] CO2 [Moles/Vol] 29 mmol/L 20 - 31 mmol/L [place] Creatinine [Mass/Vol] 0.82 mg/dL 0.7 - 1.2 mg/dL [place] GFR >60 >60 mL/min [place] GFR Non- >60 >60 mL/min [place] GFR/1.73 sq M predicted among non-blacks MDRD (S/P/Bld) [Vol rate/Area] [place] Comment on above: Average GFR for 70 o r more years old: 75 mL/min/1.73sq m Chronic Kidney Disease: <60 mL/min/1.73sq m Kidney failure: <15 mL/min/1.73sq m eGFR calculated using average adult body mass. Additional eGFR calculator available at: http://www.[employer]/multiple_crcl_2012.htm GFR/1.73 sq M predicted among non-blacks MDRD (S/P/Bld) [Vol rate/Area] NOT REPORTED [place], [place] Glucose [Mass/Vol] 112 mg/dL High 70 - 99 mg/dL [place], [place] Interpretation and review of laboratory results Abnormal [place], [place] Potassium [Moles/Vol] 4.0 mmol/L 3.7 - 5.3 mmol/L [place] Sodium [Moles/Vol] 135 mmol/L 135 - 144 mmol/L [place] Urea nitrogen [Mass/Vol] 14 mg/dL 8 - 23 mg/dL [place] Basic Metabolic Profon 09-22 (cont.) Normal [facility] Comment on above: Result Comment: Aver age GFR for 70 or more years old: 75 mL/min/1.73sq m Chronic Kidney Disease: <60 mL/min/1.73sq m Kidney failure: <15 mL/min/1.73sq m eGFR calculated using average adult body mass. Additional eGFR calculator available at: http://www.[employer]/multiple_crcl_2012.htm Performed By: #### B HARI, CDP #### [facility] [address] [place] [address] Water Project Manager: Jeremías Donald MD Anion gap [Moles/Vol] 7 mmol/L Low 9-17 [facility] Comment on above: Performed By: #### B HARI, CDP #### [facility] Lab [address] [place] [address] Water Project Manager: Jeremías Donald MD BUN/CRE Ratio 17 Normal 9-20 [facility] Comment on above: Performed By: #### B HARI, CDP #### [facility] [address] [facility] [place] [address] Water Project Manager: Jeremías Donald MD Calcium [Mass/Vol] 9.1 mg/dL Normal 8.6-10.4 [facility] Comment on above: Performed By: #### B HARI, CDP #### [facility] [address] [place] [address] Water Project Manager: Jeremías Donald MD Chloride [Moles/Vol] 99 mmol/L Normal 98-107 [facility] Comment on above: Performed By: #### B HARI, CDP #### [facility] [address] [facility] [place] [address] Water Project Manager: Jeremías Donald MD CO2 [Moles/Vol] 29 mmol/L Normal 20-31 [facility] Comment on above: Performed By: #### B MP, CDP #### [facility] [address] [place] [address] Water Project Manager: Jeremías Donald MD Creatinine [Mass/Vol] 0.82 mg/dL Normal 0.70-1.20 [facility] Comment on above: Performed By: #### B MP, CDP #### [facility] [address] [place] [address] Water Project Manager: Jeremías Donald MD GFR, Amer >60 Normal >60 [facility] Comment on above: Performed By: #### B MP, CDP #### [facility] [address] [place] [address] Water Project Manager: Jeremías Donald MD GFR,non Amer >60 Normal >60 [facility] Comment on above: Performed By: #### B MP, CDP #### [facility] [address] [place] [address] Water Project Manager: Jeremías Donald MD Glucose [Mass/Vol] 112 mg/dL High 70-99 [facility] Comment on above: Performed By: #### B MP, CDP #### [facility] [address] [place] [address] Water Project Manager: Jeremías Donald MD Potassium [Moles/Vol] 4.0 mmol/L Normal 3.7-5.3 [facility] Comment on above: Performed By: #### B MP, CDP #### [facility] [address] [place] [address] Water Project Manager: Jeremías Donald MD Sodium [Moles/Vol] 135 mmol/L Normal 135-144 [facility] Comment on above: Performed By: #### B MP, CDP #### [facility] [address] [place] [address] Water Project Manager: Jeremías Donald MD Urea nitrogen [Mass/Vol] 14 mg/dL Normal 8-23 [facility] Comment on above: Performed By: #### B MP, CDP #### [facility] [address] [place] [address] Water Project Manager: Jeremías Donald MD Staging: NOT REPORTED Normal [facility] Comment on above: Performed By: #### B MP, CDP #### [facility] [address] [place] [address] Water Project Manager: Jeremías Donald MD CBC Auto Differentialon Basophils (Bld) [#/Vol] 0.03 10*3/uL [place] Basophils/100 WBC (Bld) 0 % 0 - 2 % [place] Differential Type NOT REPORTED [place] Eosinophils (Bld) [#/Vol] 0.10 10*3/uL [place] Eosinophils/100 WBC (Bld) 1 % 1 - 4 % [place] Erythrocyte distribution width (RBC) [Ratio] 12.0 % 11.8 - 14.4 % [place] Hematocrit (Bld) [Volume fraction] 39.6 % Low 40.7 - 50.3 % [place] Hemoglobin (Bld) [Mass/Vol] 12.8 g/dL Low 13 - 17 g/dL [place] Immature granulocytes (Bld) [#/Vol] 0.03 10*3/uL [place] Immature granulocytes (Bld) [#/Vol] 0 % 0 [place] Interpretation and review of laboratory results Abnormal [place] Lymphocytes (Bld) [#/Vol] 0.92 10*3/uL Low [place] Lymphocytes/100 WBC (Bld) 8 % Low 24 - 43 % [place] MCH (RBC) [Entitic mass] 32.1 pg 25.2 - 33.5 pg [place] MCHC (RBC) [Mass/Vol] 32.3 g/dL 28.4 - 34.8 g/dL [place] MCV (RBC) [Entitic vol] 99.2 fL 82.6 - 102.9 fL [place] Monocytes (Bld) [#/Vol] 1.26 10*3/uL [place] Monocytes/100 WBC (Bld) 11 % 3 - 12 % [place] Platelet mean volume (Bld) [Entitic vol] 10.0 fL 8.1 - 13.5 fL [place] Platelets (Bld) [#/Vol] NOT REPORTED [place] Platelets (Bld) [#/Vol] 203 10*3/uL [place] RBC (Bld) [#/Vol] 3.99 10*6/uL Low 4.21 - 5.7 7 m/uL [place] RBC morphology finding Nom (Bld) NOT REPORTED [place] Segmented neutrophils/100 WBC (Bld) 80 % High 36 - 65 % [place] Segs Absolute 8.94 High [place] WBC (Bld) [#/Vol] 11.3 10*3/uL [place] WBC (Bld) [#/Vol] 0.0 10*3/uL 0.0 per 100 WBC M [place] WBC Morphology NOT REPORTED [place] CBC with Diffon 09-22-2020 Abs. Basophil 0.03 k/uL Normal 0.00-0.20 [facility] Comment on above: Performed By: #### B HARI, CDP #### [facility] [address] [facility] [place] [address] Water Project Manager: Jeremías Donald MD Abs.Imm.Granulocyte 0.03 k/uL Normal 0.00-0.30 [facility] Comment on above: Performed By: #### B HARI, CDP #### [facility] [address] [facility] [place] [address] Water Project Manager: Jeremías Donald MD Abs.Neutrophil (Seg) 8.94 k/uL High 1.50-8.10 [facility] Comment on above: Performed By: #### B MP, CDP #### [facility] [place] [address] Water Project Manager: Jeremías Donald MD Basophils/100 WBC (Bld) 0 % Normal 0-2 [facility] Comment on above: Performed By: #### B MP, CDP #### [facility] [address] [place] [address]. [place] [address] Water Project Manager: Jeremías Donald MD Eosinophils (Bld) [#/Vol] 0.10 10*3/uL Normal 0.00-0.44 [facility] Comment on above: Performed By: #### B HARI, CDP #### [facility] [address] [place] [address]. [place] [address] Water Project Manager: Jeremías Donald MD Eosinophils/100 WBC (Bld) 1 % Normal 1-4 [facility] Comment on above: Performed By: #### B MP, CDP #### [facility] [address] [place] [address] Water Project Manager: Jeremías Donald MD Erythrocyte distribution width (RBC) [Ratio] 12.0 % Normal 11.8-14.4 [facility] Comment on above: Performed By: #### B MP, CDP #### [facility] [address] [place] [address] Water Project Manager: Jeremías Donald MD Hematocrit (Bld) [Volume fraction] 39.6 % Low 40.7-50.3 [facility] Comment on above: Performed By: #### B HARI, CDP #### [facility] [address] [place] [address] Water Project Manager: Jeremías Donald MD Hemoglobin (Bld) [Mass/Vol] 12.8 g/dL Low 13.0-17.0 [facility] Comment on above: Performed By: #### B MP, CDP #### [facility] [address] [place] [address] Water Project Manager: Jeremías Donald MD Immature granulocytes (Bld) [#/Vol] 0 % Normal 0 [facility] Comment on above: Performed By: #### B MP, CDP #### [facility] [address] [place] [address] Water Project Manager: Jeremías Donald MD Lymphocytes (Bld) [#/Vol] 0.92 10*3/uL Low 1.10-3.70 [facility] Comment on above: Performed By: #### B HARI, CDP #### [facility] [address] [place] [address] Water Project Manager: Jeremías Donald MD Lymphocytes/100 WBC (Bld) 8 % Low 24-43 [facility] Comment on above: Performed By: #### B HARI, CDP #### [facility] [address] [place] [address] Water Project Manager: Jeremías Donald MD MCH (RBC) [Entitic mass] 32.1 pg Normal 25.2-33.5 [facility] Comment on above: Performed By: #### B HARI, CDP #### [facility] [address] [place] [address] Water Project Manager: Jeremías Donald MD MCHC (RBC) [Mass/Vol] 32.3 g/dL Normal 28.4-34.8 [facility] Comment on above: Performed By: #### B HARI, CDP #### [facility] [address] [place] [address] Water Project Manager: Jeremías Donald MD MCV (RBC) [Entitic vol] 99.2 fL Normal 82.6-102.9 [facility] Comment on above: Performed By: #### B MP, CDP #### [facility] [address] [place] [address]. [place] [address] Water Project Manager: Jeremías Donald MD Monocytes (Bld) [#/Vol] 1.26 10*3/uL High 0.10-1.20 [facility] Comment on above: Performed By: #### B MP, CDP #### [facility] [address] [place] [address]. [place] [address] Water Project Manager: Jeremías Donald MD Monocytes/100 WBC (Bld) 11 % Normal 3-12 [facility] Comment on above: Performed By: #### B MP, CDP #### [facility] [address] [place] [address]. [place] [address] Water Project Manager: Jeremías Donald MD Neutrophil (Seg) 80 % High 36-65 [facility] Comment on above: Performed By: #### B MP, CDP #### [facility] [address] [place] [address]. [place] [address] Water Project Manager: Jeremías Donald MD NRBC Automated 0.0 per 100 WBC Normal 0.0 [facility] Comment on above: Performed By: #### B MP, CDP #### [facility] [address] [place] [address]. [place] [address] Water Project Manager: Jeremías Donald MD Platelet mean volume (Bld) [Entitic vol] 10.0 fL Normal 8.1-13.5 [facility] Comment on above: Performed By: #### B MP, CDP #### [facility] [address] [place] [address] Water Project Manager: Jeremías Donald MD Platelets (Bld) [#/Vol] 203 10*3/uL Normal 138-453 [facility] Comment on above: Performed By: #### B MP, CDP #### [facility] [address] [place] [address] Water Project Manager: Jeremías Donald MD RBC (Bld) [#/Vol] 3.99 10*6/uL Low 4.21-5.77 [facility] Comment on above: Performed By: #### B MP, CDP #### [facility] [address] [facility] [place] [address] Water Project Manager: Jeremías Donald MD WBC (Bld) [#/Vol] 11.3 10*3/uL Normal 3.5-11.3 [facility] Comment on above: Performed By: #### B MP, CDP #### [facility] [address] [facility] [place] [address] Water Project Manager: Jeremías Donald MD Auto Diff Performed NOT REPORTED Normal [facility] Comment on above: Performed By: #### B MP, CDP #### [facility] [address] [facility] [place] [address] Water Project Manager: Jeremías Donald MD Platelets (Bld) [#/Vol] NOT REPORTED Normal [facility] Comment on above: Performed By: #### B MP, CDP #### [facility] [address] [place] [address]. [place] [address] Water Project Manager: Jeremías Donald MD RBC morphology finding Nom (Bld) NOT REPORTED Normal [facility] Comment on above: Performed By: #### B MP, CDP #### [facility] [address] [facility] [place] [address] Water Project Manager: Jeremías Donald MD WBC Morphology NOT REPORTED Normal [facility] Comment on above: Performed By: #### B MP, CDP #### [facility] [address] [facility] [place] [address] Water Project Manager: Jereímas Donald MD COVID-19on 09-15-2020 SARS-CoV-2 Not Detected Not Detected [place], [place] Comment on above: The specimen is NEGATIVE for SARS-CoV-2, the novel coronavirus associated with COVID-19. A negative result does not rule out COVID-19. This test has been authorized by the FDA under an Emergency Use Authorization (EUA) for use by authorized laboratories. [employer] SARS-CoV-2 Reagents for [employer] are designed to detect the virus that causes COVID-19 in patients with signs and symptoms of infection who are suspected of COVID-19. An individual without symptoms of COVID-19 and who is not shedding SARS-CoV-2 virus would expect to have a negative (not detected) result in this assay. Fact sheet for Healthcare Providers: https://www.fda.gov/media/483502/download Fact sheet for Patients: https://www.fda.gov/media/976831/download METHODOLOGY: RT-PCR SARS-CoV-2 [place] SARS-CoV-2, Rapid [place], [place] Source .NASOPHARYNGEAL SWAB [place] [id number] 09-15-2020 SARS-CoV-2 Not Detected [facility] Comment on above: Result Comment: The specimen is NEGATIVE for SARS-CoV-2, the novel coronavirus associated with COVID-19. A negative result does not rule out COVID-19. This test has been authorized by the FDA under an Emergency Use Authorization (EUA) for use by authorized laboratories. [employer]um SARS-CoV-2 Reagents for [employer] System are designed to detect the virus that causes COVID-19 in patients with signs and symptoms of infection who are suspected of COVID-19. An individual without symptoms of COVID-19 and who is not shedding SARS-CoV-2 virus would expect to have a negative (not detected) result in this assay. Fact sheet for Healthcare Providers: https://www.fda.gov/media/291281/download Fact sheet for Patients: https://www.fda.gov/media/178169/download METHODOLOGY: RT-PCR Performed By: #### C OVID #### [facility] [address] [place] [address] Water Project Manager: Jeremías Donald MD [address] [address] Water Project Manager: Rah Mccollum MD SARS-CoV-2 [facility] Comment on above: Performed By: #### C OVID #### [facility] [address] [place] [address] Water Project Manager: Jeremías Donald MD [facility] [address] [place] [address] Water Project Manager: Rah Mccollum MD SARS-CoV-2,Rapid Normal [facility] Comment on above: Performed By: #### C OVID #### [facility] [address] [place] [address] Water Project Manager: Jeremías Donald MD [address] [address] Water Project Manager: Rah Mccollum MD [id number] 09-14-2020 SARS-CoV-2 Source .NASOPHARYNGEAL SWAB Normal [facility] Comment on above: Performed By: #### C OVID #### [facility] [address] [place] [address] Water Project Manager: Jeremías Donald MD [address] [address] Water Project Manager: Rah Mccollum MD EKG 12 Leadon 09-02-2020 Atrial Rate 61 BPM [place] P [place] 66 degrees [place] P-R Interval 168 ms [place] Q-T Interval 406 ms [place] QRS Duration 98 ms [place] QTc Calculation (Bazett) 408 ms [place], [place] R [place] 27 degrees [facility], [place] T [place] 51 degrees [place], [place] Ventricular Rate 61 BPM [place], [place], Mhpn Incoming Ekg Results From [facility] - 09/02/2020 8:25 AM EST Normal sinus rhythm Possible Anterior infarct , age undetermined Abnormal ECG When compared with ECG of 02-APR-2018 10:00, Minimal criteria for Inferior infarct are no longer Present [place] Normal sinus rhythm Possible Anterior infarct , age undetermined Abnormal ECG When compared with ECG of 02-APR-2018 10:00, Minimal criteria for Inferior infarct are no longer Present [place] MRSA DNA Probe, Nasalon - MRSA, DNA, Nasal NEGATIVE: MRSA DNA not detected by nucleic acid amplification. NEGATIVE: MRSA DNA not detected by nucleic acid amplificati [place] Comment on above: Results should be used as an adjunct to nosocomial control efforts to identify patients needing enhanced precautions. The test is not intended to identify patients with staphylococcal infections. Results should not be used to guide or monitor treatment for MRSA infections. Specimen Description .NASAL SWAB [place] MRSA, DNA, Nasalon 0 MRSA, DNA, Nasal NEGATIVE: MRSA DNA not detected by nucleic acid amplification. [facility] Comment on above: Result Comment: Results should be used as an adjunct to nosocomial control efforts to identify patients needing enhanced precautions. The test is not intended to identify patients with staphylococcal infections. Results should not be used to guide or monitor treatment for MRSA infections. Performed By: #### M RSANO #### [facility] [address] [place], [place] [id number] Water Project Manager: Jeremías Donald MD [facility] [address] [place], [place] [id number] Water Project Manager: Rah Mccollum MD BUN & Creatinineon 0 Creatinine [Mass/Vol] 1.06 mg/dL 0.7 - 1.2 mg/dL [place] GFR >60 >60 mL/min [place] GFR Non- >60 >60 mL/min [place] GFR/1.73 sq M predicted among non-blacks MDRD (S/P/Bld) [Vol rate/Area] NOT REPORTED [place] GFR/1.73 sq M predicted among non-blacks MDRD (S/P/Bld) [Vol rate/Area] [place] Comment on above: Average GFR for 70 o r more years old: 75 mL/min/1.73sq m Chronic Kidney Disease: <60 mL/min/1.73sq m Kidney failure: <15 mL/min/1.73sq m eGFR calculated using average adult body mass. Additional eGFR calculator available at: http://www.[employer]/multiple_crcl_2012.htm Urea nitrogen [Mass/Vol] 23 mg/dL 8 - 23 mg/dL [place] BUN + Creatinineon 0 (cont.) Normal [facility] Comment on above: Result Comment: Aver age GFR for 70 or more years old: 75 mL/min/1.73sq m Chronic Kidney Disease: <60 mL/min/1.73sq m Kidney failure: <15 mL/min/1.73sq m eGFR calculated using average adult body mass. Additional eGFR calculator available at: http://www.[employer]/multiple_crcl_2012.htm Performed By: #### C DP, BUNCRT, LYTE #### [facility] [address] [facility] [place] [address] Water Project Manager: Jeremías Donald MD Creatinine [Mass/Vol] 1.06 mg/dL Normal 0.70-1.20 [facility] Comment on above: Performed By: #### C DP, BUNCRT, LYTE #### [facility] [address] [place] [address] Water Project Manager: Jeremías Donald MD GFR, Amer >60 Normal >60 [facility] Comment on above: Performed By: #### C DP, BUNCRT, LYTE #### [facility] [address] [facility] [place] [address] Water Project Manager: Jeermías Donald MD GFR,non Amer >60 Normal >60 [facility] Comment on above: Performed By: #### C DP, BUNCRT, LYTE #### [facility] [address] [facility] [place] [address] Water Project Manager: Jeremías Donald MD Urea nitrogen [Mass/Vol] 23 mg/dL Normal 8-23 [facility] Comment on above: Performed By: #### C DP, BUNCRT, LYTE #### [facility] [address] [facility] [place] [address] Water Project Manager: Jeremías Donald MD Staging: NOT REPORTED Normal [facility] Comment on above: Performed By: #### C DP, BUNCRT, LYTE #### [facility] [address] [facility] [place] [address] Water Project Manager: Jeremías Donald MD CBC Auto Differentialon 08-16 Basophils (Bld) [#/Vol] 0.04 10*3/uL [place] Basophils/100 WBC (Bld) 1 % 0 - 2 % [place] Differential Type NOT REPORTED [place] Eosinophils (Bld) [#/Vol] 0.14 10*3/uL [place] Eosinophils/100 WBC (Bld) 2 % 1 - 4 % [place] Erythrocyte distribution width (RBC) [Ratio] 12.3 % 11.8 - 14.4 % [place] Hematocrit (Bld) [Volume fraction] 46.2 % 40.7 - 50.3 % [place] Hemoglobin (Bld) [Mass/Vol] 14.7 g/dL 13 - 17 g/dL [place] Immature granulocytes (Bld) [#/Vol] 0.01 10*3/uL [place] Immature granulocytes (Bld) [#/Vol] 0 % 0 [place] Interpretation and review of laboratory results Abnormal [place] Lymphocytes (Bld) [#/Vol] 1.43 10*3/uL [place] Lymphocytes/100 WBC (Bld) 19 % Low 24 - 43 % [place] MCH (RBC) [Entitic mass] 31.8 pg 25.2 - 33.5 pg [place] MCHC (RBC) [Mass/Vol] 31.8 g/dL 28 - 38 g/dL [place] MCV (RBC) [Entitic vol] 100.0 fL 82.6 - 102.9 fL [place] Monocytes (Bld) [#/Vol] 0.53 10*3/uL [place] Monocytes/100 WBC (Bld) 7 % 3 - 12 % [place] Platelet mean volume (Bld) [Entitic vol] 9.5 fL 8.1 - 13.5 fL [place] Platelets (Bld) [#/Vol] 233 10*3/uL [place] Platelets (Bld) [#/Vol] NOT REPORTED [place] RBC (Bld) [#/Vol] 4.62 10*6/uL 4.21 - 5.7 7 m/uL [place] RBC morphology finding Nom (Bld) NOT REPORTED [place] Segmented neutrophils/100 WBC (Bld) 71 % High 36 - 65 % [place] Segs Absolute 5.25 [place] WBC (Bld) [#/Vol] 7.4 10*3/uL [place] WBC (Bld) [#/Vol] NOT REPORTED 0.0 per 100 WBC [place] WBC Morphology NOT REPORTED [place] CBC with Diffon 09-01-2020 Abs. Basophil 0.04 k/uL Normal 0.00-0.20 [facility] Comment on above: Performed By: #### C DP BUNCRT, LYTE #### [facility] [address] [place] [address]. [place] [address] Water Project Manager: Jeremías Donald MD Abs.Imm.Granulocyte 0.01 k/uL Normal 0.00-0.30 [facility] Comment on above: Performed By: #### C DP BUNCRT, LYTE #### [facility] [address] [place] [address] Water Project Manager: Jeremías Donald MD Abs.Neutrophil (Seg) 5.25 k/uL Normal 1.50-8.10 [facility] Comment on above: Performed By: #### C MP BUNCRT, LYTE #### [facility] [address] [place] [address] Water Project Manager: Jeremías Donald MD Basophils/100 WBC (Bld) 1 % Normal 0-2 [facility] Comment on above: Performed By: #### C MP BUNCRT, LYTE #### [facility] [address] [place] [address] Water Project Manager: Jeremías Donald MD Eosinophils (Bld) [#/Vol] 0.14 10*3/uL Normal 0.00-0.44 [facility] Comment on above: Performed By: #### C DP BUNCRT, LYTE #### [facility] [address] [place] [address] Water Project Manager: Jeremías Donald MD Eosinophils/100 WBC (Bld) 2 % Normal 1-4 [facility] Comment on above: Performed By: #### C DP BUNCRT, LYTE #### [facility] [address] [place] [address] [place] [address] Water Project Manager: Jeremías Donald MD Erythrocyte distribution width (RBC) [Ratio] 12.3 % Normal 11.8-14.4 [facility] Comment on above: Performed By: #### C DP, BUNCRT, LYTE #### [facility] [address] [place] [address] Water Project Manager: Jeremías Donald MD Hematocrit (Bld) [Volume fraction] 46.2 % Normal 40.7-50.3 [facility] Comment on above: Performed By: #### C DP, BUNCRT, LYTE #### [facility] [address] [place] [address] Water Project Manager: Jeremías Donald MD Hemoglobin (Bld) [Mass/Vol] 14.7 g/dL Normal 13.0-17.0 [facility] Comment on above: Performed By: #### C DP BUNCRT, LYTE #### [facility] [address] [place] [address] Water Project Manager: Jeremías Donald MD Immature granulocytes (Bld) [#/Vol] 0 % Normal 0 [facility] Comment on above: Performed By: #### C DP BUNCRT, LYTE #### [facility] [address] [place] [address] Water Project Manager: Jeremías Donald MD Lymphocytes (Bld) [#/Vol] 1.43 10*3/uL Normal 1.10-3.70 [facility] Comment on above: Performed By: #### C DP BUNCRT, LYTE #### [facility] [address] [place] [address] Water Project Manager: Jeremías Donald MD Lymphocytes/100 WBC (Bld) 19 % Low 24-43 [facility] Comment on above: Performed By: #### C DP, BUNCRT, LYTE #### [facility] [address] [facility] [place] [address] Water Project Manager: Jeremías Donald MD MCH (RBC) [Entitic mass] 31.8 pg Normal 25.2-33.5 [facility] Comment on above: Performed By: #### C DP, BUNCRT, LYTE #### [facility] [place] [address] Water Project Manager: Jeremías Donald MD MCHC (RBC) [Mass/Vol] 31.8 g/dL Normal 28.0-38.0 [facility] Comment on above: Performed By: #### C DP, BUNCRT, LYTE #### [facility] [address] [place] [address]. [place] [address] Water Project Manager: Jeremías Donald MD MCV (RBC) [Entitic vol] 100.0 fL Normal 82.6-102.9 [facility] Comment on above: Performed By: #### C DP, BUNCRT, LYTE #### [facility] [address] [place] [address]. [place] [address] Water Project Manager: Jeremías Donald MD Monocytes (Bld) [#/Vol] 0.53 10*3/uL Normal 0.10-1.20 [facility] Comment on above: Performed By: #### C DP, BUNCRT, LYTE #### [facility] [place] [address] Water Project Manager: Jeremías Donald MD Monocytes/100 WBC (Bld) 7 % Normal 3-12 [facility] Comment on above: Performed By: #### C DP, BUNCRT, LYTE #### [facility] [address] [place] [address]. [place] [address] Water Project Manager: Jeremías Donald MD Neutrophil (Seg) 71 % High 36-65 [facility] Comment on above: Performed By: #### C DP, BUNCRT, LYTE #### [facility] [address] [facility] [place] [address] Water Project Manager: Jeremías Donald MD Platelet mean volume (Bld) [Entitic vol] 9.5 fL Normal 8.1-13.5 [facility] Comment on above: Performed By: #### C DP, BUNCRT, LYTE #### [facility] [address] [place] [address]. [place] [address] Water Project Manager: Jeremías Donald MD Platelets (Bld) [#/Vol] 233 10*3/uL Normal 138-453 [facility] Comment on above: Performed By: #### C DP, BUNCRT, LYTE #### [facility] [place] [address] Water Project Manager: Jeremías Donald MD RBC (Bld) [#/Vol] 4.62 10*6/uL Normal 4.21-5.77 [facility] Comment on above: Performed By: #### C DP, BUNCRT, LYTE #### [facility] [address] [place] [address]. [place] [address] Water Project Manager: Jeremías Donald MD WBC (Bld) [#/Vol] 7.4 10*3/uL Normal 3.5-11.3 [facility] Comment on above: Performed By: #### C DP, BUNCRT, LYTE #### [facility] [address] [place] [address]. [place] [address] Water Project Manager: Jeremías Donald MD Auto Diff Performed NOT REPORTED Normal [facility] Comment on above: Performed By: #### C DP, BUNCRT, LYTE #### [facility] [address] [address] Water Project Manager: Jeremías Donald MD NRBC Automated NOT REPORTED Normal 0.0 [facility] Comment on above: Performed By: #### C DP, BUNCRT, LYTE #### [facility] [address] [address] Water Project Manager: Jeremías Donald MD Platelets (Bld) [#/Vol] NOT REPORTED Normal [facility] Comment on above: Performed By: #### C DP, BUNCRT, LYTE #### [facility] [address] [place] [address] Water Project Manager: Jeremías Donald MD RBC morphology finding Nom (Bld) NOT REPORTED Normal [facility] Comment on above: Performed By: #### C DP, BUNCRT, LYTE #### [facility] [address] [address] Water Project Manager: Jeremías Donald MD WBC Morphology NOT REPORTED Normal [facility] Comment on above: Performed By: #### C DP, BUNCRT, LYTE #### [facility] [address] [address] Water Project Manager: Jeremías Donald MD Electrolyte Panelon 09-01-20 20 Anion gap [Moles/Vol] 10 mmol/L 9 - 17 mmol/L [facility] , [place] Chloride [Moles/Vol] 102 mmol/L 98 - 107 mmol/L [place], [place] CO2 [Moles/Vol] 27 mmol/L 20 - 31 mmol/L [place], [place] Potassium [Moles/Vol] 4.2 mmol/L 3.7 - 5.3 mmol/L [place] Sodium [Moles/Vol] 139 mmol/L 135 - 144 mmol/L [place] Electrolyteson 09-01-2020 Anion gap [Moles/Vol] 10 mmol/L Normal 9-17 [facility] Comment on above: Performed By: #### C MP BUNCRT, LYTE #### [facility] [address] [address] Water Project Manager: Jeremías Donald MD Chloride [Moles/Vol] 102 mmol/L Normal 98-107 [facility] Comment on above: Performed By: #### C DP BUNCRT, LYTE #### [facility] [address] [address] Water Project Manager: Jeremías Donald MD CO2 [Moles/Vol] 27 mmol/L Normal 20-31 [facility] Comment on above: Performed By: #### C DP BUNCRT, LYTE #### [facility] [address] [address] Water Project Manager: Jeremías Donald MD Potassium [Moles/Vol] 4.2 mmol/L Normal 3.7-5.3 [facility] Comment on above: Performed By: #### C MP BUNCRT, LYTE #### [facility] [address] [place] [address] Water Project Manager: Jeremías Donald MD Sodium [Moles/Vol] 139 mmol/L Normal 135-144 [facility] Comment on above: Performed By: #### C DP BUNCRT, LYTE #### [facility] [address] [address] Water Project Manager: Jeremías Donald MD MRSA, DNA, Nasalon 0 Specimen Description .NASAL SWAB Normal [facility] Comment on above: Performed By: #### M RSANO #### [facility] [address] [address] Water Project Manager: Jeremías Donald MD [facility] [address] [place], [place] [id number] Water Project Manager: Rah Mccollum MD TYPE AND SCREENon 09-01-2020 ABO/Rh Positive [facility], [place] Arm Band Number [id number] [facility] Expiration Date 09/23/2020,2359 [facility], [place] Type + Screenon 09-01-2020 Type + Screen Sample Expiration 09/23/2020,2359 Arm Band Number [id number] ABO/Rh(D) O POSITIVE Antibody Screen NEGATIVE Normal [facility] Comment on above: Performed By: #### T YS #### [facility] [address] [place] [address] Water Project Manager: Jeremías Donald MD Vital Signs Date Time Vital Sign Value Performing Clinician Facility 11-08-2023 09:07-0500 Body height 172.7 cm [facility] 1 [facility] 11-08-2023 09:07-0500 Body mass index (BMI) [Ratio] 23.42 kg/m2 [facility] 1 [facility] 11-08-2023 09:07-0500 Body weight 69.85 kg P[facility] 1 [facility] 10-23-2023 08:08-0500 Body height 172.7 cm Jr. Stepanic DO Work Phone: [facility] 10-23-2023 08:08-0500 Body mass index (BMI) [Ratio] 23.11 kg/m2 Jr. Stepanic DO Work Phone: [facility] 10-23-2023 08:08-0500 Body weight 68.95 kg Jr. Stepanic DO Work Phone: [facility] 09-22-2020 11:33-0500 Body Temperature 98.8 [degF] Kareem [facility] 09-22-2020 11:33-0500 BP Diastolic 63 mm[Hg] Kareem [facility] , [place] 09-22-2020 11:33-0500 BP Systolic 129 mm[Hg] Kareem Diaz [facility] , [place] 09-22-2020 11:33-0500 Pulse (Heart Rate) 65 /min Kareem Diaz [facility] 09-22-2020 11:33-0500 Pulse Oximetry 97 % [facility] [place] 09-22-2020 11:33-0500 Respiratory Rate 17 /min Kareem Diaz [facility], [place] 09-20-2020 06:08-0500 BMI (Body Mass Index) 23.63 kg/m2 Kareem Diaz [facility], [place] 09-20-2020 06:08-0500 Body weight 70.5 kg Kareem Diaz [facility] , [place] 09-20-2020 06:08-0500 Height 172.7 cm Kareem Diaz [facility] , [place] 09-01-2020 11:37-0500 BMI (Body Mass Index) 23.63 kg/m2 [address] 09-01-2020 11:37-0500 Body Temperature 97 [degF] [address] 09-01-2020 11:37-0500 Body weight 70.[address] 09-01-2020 11:37-0500 BP Diastolic 65 mm[Hg] [address] 09-01-2020 11:37-0500 BP Systolic 135 mm[Hg] [address] 09-01-2020 11:37-0500 Height 172.[address] 09-01-2020 11:37-0500 Pulse (Heart Rate) 62 /min [address] 09-01-2020 11:37-0500 Pulse Oximetry 97 % [address] 09-01-2020 11:37-0500 Respiratory Rate 16 /min [address] Encounters Encounter Date Encounter Type Care Provider Facility Start: 12-30-2023 End: 12-30-2023 ambulatory LUKE GUZMAN Not Available Start: 12-27-2023 End: 12-27-2023 ambulatory BARBY GRIGGS Not Available Start: 12-26-2023 End: 12-27-2023 ambulatory SANDRA BURR Not Available Start: 12-26-2023 End: 12-26-2023 ambulatory LUKE GUZMAN Not Available Start: 12-20-2023 End: 12-20-2023 ambulatory LUKE GUZMAN Not Available Start: 12-18-2023 End: 12-19-2023 ambulatory BARBY J INDU Not Available Start: 12-16-2023 End: 12-16-2023 ambulatory BARBY J INDU Not Available Start: 12-13-2023 End: 12-13-2023 ambulatory BARBY J INDU Not Available Start: 12-10-2023 End: 12-10-2023 ambulatory BARBY J INDU Not Available Start: 12-04-2023 End: 12-04-2023 ambulatory SANDRA BURR Not Available Start: 11-27-2023 End: 11-28-2023 ambulatory SANDRA BURR Not Available Start: 11-22-2023 End: 11-22-2023 ambulatory CHON WILKINSON [facility] Start: 11-19-2023 End: 11-22-2023 ambulatory [facility] Start: 11-19-2023 End: 11-21-2023 Evaluation and management of inpatient [facility] Start: 11-11-2023 End: 11-11-2023 ambulatory MC OSMAN Not Available Start: 11-08-2023 End: 11-09-2023 ambulatory [facility] Start: 11-08-2023 Encounter for other preprocedural examination [facility] Start: 11-08-2023 End: 11-08-2023 Patient encounter procedure [facility] Pre-Admission Testing 1 [facility] - Pre Admit Comment on above: Coronary artery dise ase involving [place] coronary artery of [place] heart without angina pectoris (Primary Dx); Preop examination; Urinary frequency; Hypertension, unspecified type Start: 11-08-2023 End: 11-08-2023 Preprocedural examination done Pm 1 [facility] Start: 10-23-2023 End: 10-24-2023 ambulatory JUAN CARLOS HANSON Not Available Start: 10-23-2023 End: 10-23-2023 Follow-up encounter Jr. Juan Carlos Alas DO Work Phone: [facility] Comment on above: Primary osteoarthrit is of left knee (Primary Dx); Chronic pain of left knee Start: 09-02-2023 End: 09-02-2023 ambulatory SANDRA Jamie AMINAH Not Available Start: 02-13-[address] CHARITY YIN . Facili ty:[facility] Start: 11-27-2022 End: 11-28-[address] CHARITY YIN . Facility:[facility] Start: 11-19-2022 End: 11-20-[address] CHARITY YIN . Facility:[facility] Start: 11-16-2022 End: 11-16-[address] CHARITY YIN . Facility:[facility] Start: 11-14-2022 End: 11-15-[address] CHARITY YIN . Facility:[facility] Start: 09-11-2022 End: 09-11-[address] CHARITY YIN . Facility:[facility] Start: 07-05-2022 End: 07-06-2022 ambulatory [facility] Start: 09-20-2020 End: 09-22-2020 Evaluation and management of inpatient [facility] Start: 09-20-2020 End: 09-22-2020 Evaluation and management of inpatient Kareem Diaz Work Phone: [facility] Comment on above: Acute postoperative pain (Primary Dx); Localized osteoarthritis of right knee Start: 09-14-2020 End: 09-15-2020 Patient encounter procedure [facility] Start: 09-14-2020 End: 09-14-2020 Subsequent hospital visit by physician Sarah Beth Covfito Screening Schedule [facility] Comment on above: Preop testing (Prima ry Dx) Start: 09-01-2020 End: 09-06-2020 Patient encounter procedure [facility] Start: 09-01-2020 End: 09-05-2020 Subsequent hospital visit by physician Brandie Diggs 2 [facility] PRE-ADMIT TESTING Start: 05-13-2017 End: 05-14-2017 Ambulatory DEFAULT PHYSICIAN Facility:[facility] Procedures Date Procedure Procedure Detail Performing Clinician Start: 11-08-2023 Antibody screen [facility] 1 Start: 10-23-2023 Radiologic examinati on knee 1/2 views Jr. Juan Carlos Alas DO Work Phone: Start: 11-14-[address] LIBERTAD YIN . Comment on above: Performed By: #### V ITAD, PSASC ####[facility] [id number] [address]Dr. Ankit Peters Start: 09-22-2020 Basic metabolic pane l calcium total Adali D Delgrosso Work Phone: Start: 09-22-2020 Blood count complete auto&auto difrntl wbc Adali D Delgrosso Work Phone: Start: 09-20-2020 End: 09-20-2020 Arthrp kne condyle&platu medial&lat compartments Kareem Diaz Work Phone: Start: 09-14-2020 COVID-19 Hai Rehana doss Work Phone: Start: 09-01-2020 Blood count complete auto&auto difrntl wbc CHARITY HOY Start: 09-01-2020 BUN AND CREATININE BENJAMÍN LAS HOY Start: 09-01-2020 Electrolyte panel DOUGL HOY Start: 09-01-2020 TYPE AND SCREEN CHARITY HOY Start: 09-01-2020 Iadna s aureus methicillin resist amp probe tq CHARITY HOY Start: 09-01-2020 Ecg routine ecg w/le ast 12 lds w/i&r CHARITY HOY Start: 09-01-2020 EKG REPORT CHARITY HO Y Start: 09-01-2020 Antibody screen Sta 2 Start: 09-01-2020 Assay of urea nitrog en quantitative Hermela Tezera Work Phone: Start: 09-01-2020 Blood count complete auto&auto difrntl wbc Hermela Tezera Work Phone: Start: 09-01-2020 Blood typing serolog ic abo Hermela Tezera Work Phone: Start: 09-01-2020 Electrolyte panel Suzy Ch Work Phone: Start: 09-01-2020 Iadna s aureus methicillin resist amp probe tq Kareem Diaz Work Phone: Start: 09-01-2020 Ecg routine ecg w/le ast 12 lds trcg only w/o i&r Jeff Hernandezvikjim Work Phone: Start: 09-01-2020 EKG REPORT Hpf Scanni ng Start: 07-29-2020 History of coronary artery bypass grafting History of coronary artery bypass surgery Jr. Bishop MEDEROS Work Phone: Plan of Treatment Date Care Activity Detail Author Start: 01-11-2030 DTaP,Tdap and Td Vaccines (2 - Td or Tdap) DTaP,Tdap and Td Vaccines (2 - Td or Tdap) [facility] Start: 01-11-2030 DTaP/Tdap/Td vaccine (2 - Td) DTaP/Tdap/Td vaccine (2 - Td) [place], [place] Start: 11-08-2024 Adult BMI Screening Adult BMI Screen ing [facility] Start: 11-08-2024 Tobacco Screening Tobacco Screening [facility] Start: 11-19-2023 End: 11-19-2023 Admission to same day surgery center 11/19/2023 11:00 AM EST - 11/19/2023 2:00 PM EST Surgery [facility] [address] [place] [id number] Juan Carlos Alas Jr., DO [address] [place] [address] REPLACEMENT TOTAL JOINT KNEE [09566 (CPT )] [facility] Comment on above: REPLACEMENT TOTAL INOCENCIA INT KNEE [77644 (CPT )] Start: 11-19-2023 End: 11-19-2023 Anesthesia consultation 11/19/2023 11:00 AM EST Anesthesia Event [facility] - [facility] [address] [facility] [place] [address] Chon Wilkinson, DO [address] [place] [address] [facility] Start: 11-19-2023 End: 11-19-2023 Arthrp kne condyle&platu medial&lat compartments REPLACEMENT TOTAL JOINT KNEE left knee degenerative joint disease, right knee adhesive capsulitis 11/19/2023 11:00 AM EST [facility] Start: 11-19-2023 End: 11-19-2023 Manipulation knee joint under general anesthesia MANIPULATION KNEE left knee degenerative joint disease, right knee adhesive capsulitis 11/19/2023 11:00 AM EST [facility] Start: 11-19-2023 Subsequent hospital visit by physician 11/19/2023 11:00 AM EST Hospital Encounter [facility] [address] [place] [address] Juan Carlos Alas Jr., DO [address] [facility] [address] [place] [address] [facility] Start: 11-08-2023 End: 11-05-2024 XR Femur and Tibia Views for leg length [facility] Work Phone: Comment on above: Expected: 11/08/2023 , Expires: 11/05/2024 Start: 11-06-2023 End: 11-06-2023 Patient encounter procedure 11/06/2023 8:00 AM EST Office Visit [facility] [address] [place] [id number] Jr. Juan Carlos Alas, [address] [facility] [address] [place] [address] [facility] Start: 05-17-2023 COVID-19 Vaccine ( season) COVID-19 Vaccine ( season) [facility] Start: 05-17-2023 Influenza vaccination [facility] Start: 09-20-2020 End: 09-20-2020 Hospital Encounter [facility] Comment on above: RIGHT KNEE TOTAL ART HROPLASTY- BIOMET Start: 09-14-2020 End: 09-14-2020 Appointment 09/14/2020 Appointment Lab [facility] Covid Screening Start: 09-10-2020 End: 09-10-2021 COVID-19 COVID-19 Lab Routine Preop testing Expected: 09/10/2020, Expires: 09/10/2021 [place] Comment on above: Expected: 09/10/2020 , Expires: 09/10/2021 Start: 05-20-2018 Pneumococcal Vaccine : 65+ Years (2 - PCV) Pneumococcal Vaccine: 65+ Years (2 - PCV) [facility] Start: 2015 Fall Risk Screening Fall Risk Screen ing [facility] Start: 2000 Administration of varicella zoster vaccine Zoster (Shingles) Vaccine (1 of 2) [facility] Start: 2000 Screening for malign ant neoplasm of colon Colon cancer screen colonoscopy [place], [place] Start: 2000 Shingles Vaccine (1 of 2) Shingles Vaccine (1 of 2) [place], [place] Start: 1962 Depression Screening Depression Scre ening [facility] Start: 1960 Lipid panel Lipid screen [place], [place] Start: 1950 Abdominal aortic aneurysm screening AAA screen [place], [place] Start: 1950 Hepatitis C screening Hepatitis C sc reen [place], [place] Start: 1950 Screening for malign ant neoplasm of colon [facility] Basic metabolic 2000 panel Basic Metabolic Panel Lab STAT Tomorrow AM until discontinued starting 09/22/2020, 1 completed [place] Comment on above: Tomorrow AM until di scontinued starting 09/22/2020, 1 completed CBC Auto Differential CBC Auto D ifferential Lab STAT Tomorrow AM until discontinued starting 09/22/2020, 1 completed [place] Comment on above: Tomorrow AM until di scontinued starting 09/22/2020, 1 completed End: 11-05-2024 Crossmatch RBC Crossmatch RBC Blood Bank Routine Coronary artery disease involving [place] coronary artery of [place] heart without angina pectoris Preop examination Urinary frequency Hypertension, unspecified type 1 Occurrences starting 11/05/2023 until 11/05/2024 [facility] Comment on above: 1 Occurrences starti ng 11/05/2023 until 11/05/2024 Oxygen therapy [[facility] Data Set] Initiate Oxygen Therapy Protocol Respiratory Care Routine Daily until discontinued starting 09/20/2020 [facility] Comment on above: Daily until disconti nued starting 09/20/2020 Spirometry panel Incentive ileana metry Respiratory Care Routine Every 2hr while awake until discontinued starting 09/20/2020 [facility] [place] Comment on above: Every 2hr while awak e until discontinued starting 09/20/2020 Immunizations Immunization Date Immunization Notes Care Provider Keron de oliveira 07-09-2022 influenza virus vaccine, unspecified formulation Tevinerendira DO Work Phone: [facility] 01-12-2020 tetanus toxoid, redu elyssa diphtheria toxoid, and acellular pertussis vaccine, adsorbed P[facility] 1 [facility] Payers Date Payer Category Payer Unknown 2005 Medicare [id number] 1959 Medicare [id number] [id number] 1959 Unknown [id number] 1. 2.840.542746.1.13.239.2.7.3.169120.315 1950 Unknown [id number] 2.16.8 40.1.031465.3.579.2.177 1950 Unknown [id number] 2.16.8 40.1.521533.3.579.2.177 1950 Unknown [id number] 2.16.8 40.1.089465.3.579.2.177 1950 Unknown [id number] 2.16.84 0.1.982756.3.579.2.593 1950 Unknown [id number] 2.16.84 0.1.980000.3.579.2.593 1950 Unknown [id number] 2.16.84 0.1.207108.3.579.2.593 1950 Unknown [id number] 2.16.84 0.1.846379.3.579.2.593 1950 Unknown [id number] 2.16.84 0.1.716386.3.579.2.593 1950 Unknown [id number] 2.16.84 0.1.893645.3.579.2.593 1950 Unknown [id number] 2.16.8 40.1.108284.3.579.2.1286 1950 Unknown [id number] 2.16.8 40.1.906076.3.579.2.1286 1950 Unknown [id number] 2.16.8 40.1.105961.3.579.2.1286 1950 Unknown [id number] 2.16.8 40.1.016466.3.579.2.1286 1950 Unknown [id number] 2.16.8 40.1.520652.3.579.2.1286 1950 Unknown [id number] 2.16.8 40.1.948730.3.579.2.1286 1950 Unknown [id number] 2.16.8 40.1.311928.3.579.2.1286 1950 Unknown [id number] 2.16.8 40.1.792932.3.579.2.1286 1950 Unknown [id number] 2.16.8 40.1.730165.3.579.2.1286 1950 Unknown [id number] 2.16.84 0.1.652378.3.579.2.1259 1950 Unknown [id number] 2.16.84 0.1.823459.3.579.2.1259 1950 Unknown [id number] 2.16.84 0.1.572145.3.579.2.1259 1950 Unknown [id number] 2.16.84 0.1.513937.3.579.2.1259 1950 Unknown [id number] 2.16.84 0.1.262450.3.579.2.1259 1950 Unknown [id number] 2.16.84 0.1.913801.3.579.2.1259 1950 Unknown [id number] 2.16.84 0.1.555827.3.579.2.1259 1950 Unknown [id number] 2.16.84 0.1.464855.3.579.2.1259 1950 Unknown [id number] 2.16.84 0.1.819262.3.579.2.1259 1950 Unknown [id number] 2.16.84 0.1.165977.3.579.2.1259 1950 Unknown [id number] 2.16.84 0.1.231464.3.579.2.1259 1950 Unknown [id number] 2.16.84 0.1.385756.3.579.2.1259 1950 Unknown [id number] 2.16.84 0.1.052639.3.579.2.1259 1950 Unknown [id number] 2.16.84 0.1.644536.3.579.2.1259 1950 Unknown [id number] 2.16.84 0.1.069245.3.579.2.1259 1950 Unknown [id number] 2.16.84 0.1.826304.3.579.2.1259 1950 Unknown [id number] 2.16.840 .1.592452.3.579.2.1259 Social History Date Type Detail Facility Start: 09-01-2020 End: 03-22-2023 Tobacco smoking status NHIS Former smoker [place], [place] End: 03-18-1995 History of tobacco use Current smoker [place] Start: 09-01-2020 End: 09-20-2020 Tobacco use and exposure Former user [place] Start: 09-01-2020 End: 11-08-2023 Alcohol intake Current non-drinker of alcohol (finding) [place] Start: 1950 Sex Assigned At Not on file [place] Exposure to SARS-CoV -2 (event) Not sure [place] History of tobacco use Cigarette Smoker [facility] Start: 03-22-2023 End: 05-22-2023 Tobacco use and exposure Smokeless tobacco non-user [facility] Start: 10-23-2023 Alcohol intake Ex-drinker (finding) [facility] Start: 10-03-2020 End: 10-23-2023 History of Social function [facility] Start: 10-03-2020 End: 10-23-2023 Tobacco use panel [facility] Frequency of Alcohol Consumption Never [facility] Start: 1950 Sex Assigned At Male [facility] Start: 01-08-2022 Gender identity Identifies as male gender (finding) [facility] Start: 01-08-2022 Sexual orientation Heterosexual (finding) [facility] Medical Equipment Procedure Code Equipment Code Equipment Origin al Text Equipment Identifier Dates [place] Sut Healicoil W/3 Ultrabraid 5.5mm [id number] Start: 04-01-2018 [place] Sut Healicoil W/3 Ultrabraid 5.5mm [id number] Start: 04-01-2018 [place] Sut Healicoil W/3 Ultrabraid 5.5mm [id number] Start: 04-01-2018 Dup Use [id number] Impl Knee Psn All Poly Pat Ply 29mm [id number] Start: 09-20-2020 Psn Tib Stm 5 De g Sz F R [id number] Start: 09-20-2020 Psn Mc Ve Asf R 10mm 8-11 Ef [id number] Start: 09-20-2020 Impl Psn Fem Cp Cmt Ccr Std Sz8r [id number] Start: 09-20-2020 Cement Bne 40gm Hi Visc Radpq For Rev Surg [id number] Start: 09-20-2020 Comment on above: Description: LOT # S ROXANE Screw Bne L25mm Dia2.5mm Knee Full Thrd Hex Fem Persona [id number] Start: 09-20-2020 Instructions 11-08-2023 Patient Instructions Note Date & Type Note Facility 11-08-2023 Instructions Nori Gilman RN - 11/08/2023 9:00 AM EST Preoperative Education Checklist- General Surgery date: 11/19/23 Surgery time: 11a Arrival time: 9a 1. Bring a photo ID and your insurance card with you the day of surgery. You will check in at the main lobby of the [facility]- registration desk is straight ahead as soon as you walk in. Tell them you are here for surgery. 2. If you have a Living Will/Durable Power of Tool Sharpener for Health Care that is not on file here, please bring a copy the day of surgery. 3. Please shower/bathe the night before surgery with the provided soap or wipes. Do not shower the morning of surgery- you will do use wipes when you arrive here at the hospital before getting into your surgical gown. Do not shave the area of your procedure for 2 days prior to your surgery. 4. NO powder, lotion, perfume/cologne, aftershave, make-up, deodorant, or hair products after you have bathed. 5. NO nail bulgarian/acrylic on at least one finger. If you are having a hand, wrist or foot surgery then all nail bulgarian and artificial/acrylic nails must be removed from that hand or foot. 6. Avoid ALL Aspirin and non-steroidal anti-inflammatory drugs and certain vitamins (Ibuprofen, Advil, Aleve, Excedrin, Meloxicam, Celebrex, fish/krill oil, etc.) for 7 days prior to surgery as instructed by your surgeon and/or your prescribing doctor. Tylenol IS ALLOWED. If you are on Ticlid, Xarelto, Eliquis, Pradaxa, Plavix or Coumadin, please check with your prescribing doctor for instructions for when to stop them. 7. If you use an inhaler, continue to use it routinely. 8. Nothing to eat or drink (not even water, gum, mints, or hard candy!) AFTER midnight prior to your surgery. 9. Take only medications that you are instructed to on the morning of surgery with a TINY SIP OF WATER. 10. Choose a responsible adult that will be able to drive you home when you are discharged from your hospital stay for your surgery and can stay with you in your home for 24 hours after your procedure. You must NOT drive any vehicle or operate any machinery for 24 hours after surgery. 11. When you dress for your appointment, please wear loose fitting clothing that is appropriate to accommodate your surgical area procedure. BRING WITH YOU ANY DEVICES YOU MAY NEED: KESHIA hose, ice machine, sling/swath, brace or special shoe, oversized zip-up or button up shirt, CPAP machine if staying overnight. 12. Do NOT wear jewelry, watches, or any piercings or metal for surgery- leave these valuables and money at home. 13. Do NOT wear contact lenses for surgery- glasses are okay if needed. 14. The anesthesiologist will talk with you the day of surgery and will ask you to sign a Consent Form. 15. Refrain from smoking or any type of tobacco use for at least 8 hours and marijuana for 24 hours prior to arrival for your surgery. 16. If a GREEN BLOOD band is given to you, please bring it with you for the day of surgery. 17. Notify your surgeon if you develop any illness before your surgery. 18. If you are staying overnight, please DO NOT BRING your home medications with you. 19. If you have any questions prior to surgery, please call the Preadmission Testing office at [phone], Mon.-Fri. 7 a.m.-3 p.m. Leave a voicemail if needed. Pre-Surgery Instructions: Medication Instructions aspirin 81 mg Check with prescribing doctor for instructions atorvastatin (LIPITOR) 40 mg tablet Stop taking 0 days prior to procedure HYDROcodone-acetaminophen (NORCO) 5-325 mg per tablet Stop taking 0 days prior to procedure metoprolol succinate XL (TOPROL XL) 25 mg 24 hr tablet Take morning of procedure nitroglycerin (NITROSTAT) 0.4 MG SL tablet Check with prescribing doctor for instructions sildenafiL (VIAGRA) 100 mg tablet Stop taking 0 days prior to procedure traZODone (DESYREL) 50 mg tablet Stop taking 0 days prior to procedure How to Avoid an Infection after Your Surgery Your doctor will give you specific instructions, but remember: -ALWAYS wash hands before caring for your incision. -No picking, scratching, or rubbing your incision. -No creams, lotion, powder, rubbing alcohol or hydrogen peroxide on the incision (can harm the tissue and slow healing). -Your doctor will give you specific instructions for what type of dressing you will need and how often it will need changed for infection purposes. -No tight clothing on incision. -Do not allow anyone to touch your incision unless they are cleaning, checking, or redressing it (be sure they wash their hands first). -No contact of your incision with pets; avoid sleeping with pets. -Take full course of antibiotic if prescribed for you after surgery- do not stop unless directed to by your physician. You may also be given an antibiotic prior to your surgery to help prevent surgical site infections. -Eat a healthy and varied diet including proteins, fruits, and vegetables to help promote wound healing and keep blood sugars under control if you are diabetic. -Smoking slows the healing process by decreasing the amount of oxygen in your blood that is needed for tissue healing. Try to avoid or stop smoking if possible. LOOK at your incision each morning and each night to check the progress of healing. Some soreness, numbness, itching and/or mild bruising around the incision is normal. Call your doctor if you notice any of the following: -Increased redness or hardening around the incision area. -Increased pain at the incision site. -Incision feels hot to the touch. -Swelling or pulling apart of the incision edges. -Yellow or green drainage or foul odor coming from the incision. -Bleeding from the incision (apply pressure as needed). -Fever higher than 101 degrees Fahrenheit for more than 4 hours. SHOWERING: Your doctor will give you specific instructions, but remember: -Be careful getting into and out of the shower. -Showers should be quick (5 minutes or less). -Use a clean washcloth to gently wash your incision with soap and water and pat the area dry with a clean towel. -No re-using wash cloths or towels; get a fresh one to clean your incision. -Do not soak in the bathtub, go swimming or use a hot tub (Jacuzzi), or perform activities where your incision is submerged in water or exposed to any fluids or substances until instructed by your doctor. -If your have the sticky strips (steri-strips) over the incision, it is OK to shower with them. Do not remove them. Let them fall off on their own. If you have a question, call your doctor s office. Go to the follow-up appointment with your doctor. documented in this encounter [facility] [place] History of Present illness Narrative 10-23-2023 Jr. Juan Carlos Alas, DO - 10/23/2023 8:00 AM EST Note Date & Type Note Facility 10-23-2023 History of Presen t illness Narrative Images from the original note were not included. HISTORY OF PRESENT ILLNESS: EST PT Levon Bond is an 73 y.o. @ male. 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 [facility] ); CLEARANCE UNDER MEDIA XRAY LT KNEE TODAY CHANGE 10/23/23 XRAY LT KNEE EXA 12/12/22 XRAY LT KNEE [facility] 11/19/22 MRI LT KNEE [facility] 11/27/22 NO PAIN MANAGEMENT DEPO INJECTION 06/05/23, 09/02/[address] YIN ~12/2022 NO MDP/PREDNISONE PT C/O INSTABILITY WITH THE LT KNEE- PAIN IS CONSTANT- PAIN POSTERIOR KNEE- +SWELLING- +VICODIN PER DR YIN- +STIFFNESS WITH PROLONG SITTING HX RT TKA PER DR DIAZ ~2019- CONTINUES TO HAVE LIMITED ROM- STATES HE IS CATCHING HIS TOE AND TRIPPING/FALLING ALLERGIES: No Known Allergies HOME MEDICATIONS: Current Outpatient Medications Medication Instructions aspirin 81 MG EC tablet 1 tablet, Oral, Daily atorvastatin (Lipitor) 40 MG tablet TAKE 1 TABLET BY MOUTH ONCE DAILY FOR 90 DAYS cetirizine (ZYRTEC) 10 mg, Oral, Daily HYDROcodone-acetaminophen (Mcleod) 5-325 MG tablet 1-2 tablets Orally every 4 hrs prn pain not to exceed 8 in 24 hours metoprolol succinate XL (Toprol-XL) 25 MG 24 hr tablet TAKE 1/2 (ONE-HALF) TABLET BY MOUTH ONCE DAILY WITH SUPPER nitroglycerin (Nitrostat) 0.[address] 1 tablet as needed by sublingual route. sildenafil (VIAGRA) 100 mg, Oral, Daily PRN traZODone (Desyrel) 100 MG tablet TAKE 1 & 1 2 (ONE & ONE HALF) TABLETS BY MOUTH AT BEDTIME PHYSICAL EXAM: Left Knee Exam Tenderness The patient is experiencing tenderness in the medial joint line. Range of Motion Extension: 10 Flexion: 110 Tests Varus: negative Valgus: negative Other Erythema: absent Scars: absent Sensation: normal Pulse: present Swelling: mild Effusion: no effusion present Vitals: Body mass index is 23.11 kg/m . Tobacco Use: Medium Risk (10/23/2023) Patient History Smoking Tobacco Use: Former Smokeless Tobacco Use: Never Passive Exposure: Not on file Alcohol Use: Not on file IMAGING: ASSESSMENT: ICD-10-CM 1. Primary osteoarthritis of left knee M17.12 2. Chronic pain of left knee M25.562 G89.29 PLAN: X-ray today please I reviewed xray findings with patient and discussed options of surgical and non surgical treatment. Risks/benefits of each and chances for success/ failure. Discussion included but was not limited to the risk of infection, blood clot, failure to improve and need for additional surgery. The patient was advised that surgery is not likely to make them pain free. I answered all of the patients questions. Patient states that he would like to proceed with LT TKA as he has had tried conservative treatment including multiple injections and is not getting much relief anymore. Questions answered in laymen terms at the bedside. The diagnosis, home exercise plan and any ongoing restrictions/ recommendations reviewed. If unable to be reached in office, I recommend evaluation at nearest Emergency Room if any symptoms worsened or new symptoms develop for requiring urgent evaluation. documented in this encounter [facility] Clinical Note 02-13-2023 Note Date & Type [...] authenticated by: GENNY DAVIS Date: 2023-02-13 14:02 [facility] Clinical Note 11-19-2022 Note Date & [...] with joint effusion Electronically authenticated by: ANI AHRDING Date: 2022-11-19 15:22 [facility] Progress note 07-05-2022 Note Date & Type Note Facility 07-05-2022 Note Orthopedic Surgery Subjective Pain of the Left Wrist and Pain of the Right Wrist 07/05/22 Levon Bond is a 72 y.o. year old male presenting for evaluation of bilateral wrists. He has had chronic pain in his bilateral the wrist for numerous years. He is not aware of any specific injury to his wrist but does believe that he fell long distance onto them many many years ago but never had any pain at that time. 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 [employer] on so he feels that he has [...] finger: normal A1 fidencio and AROM Strength: observer gravity prospecting 5/5, thumb 5/5, interossei 5/5 Sensation: intact [...] finger: normal A1 fidencio and AROM Strength: observer gravity prospecting 5/5, thumb 5/5, interossei 5/5 Sensation: intact [...] arthritis and capitate lunate arthritis Assessment/Plan Levon Bond is a 72 y.o. year old male [...] be an additional personal documentation from me. [facility] Evaluation note Note Date & Type Note Facility Evaluation note Diagnosis Primary osteoarthritis of left knee- Primary Chronic pain of left knee documented in this encounter [facility] Evaluation note Note Date & Type Note Facility Evaluation note Diagnosis Coronary artery disease involving [place] coronary artery of [place] heart without angina pectoris- Primary Preop examination Unspecified pre-operative examination Urinary frequency Hypertension, unspecified type Coronary artery disease involving [place] coronary artery of [place] heart without angina pectoris Preop examination Unspecified pre-operative examination Urinary frequency Hypertension, unspecified type documented in this encounter [facility] Summary Purpose Family History No Family History Records FoundNo Family History Records FoundNo Family History Records FoundNo Family History Records FoundNo Family History Records FoundNo Family History Records Found Advance Directives No Advanced Directives Records FoundDocuments on File Type Date Recorded Patient Traffic Director Expl anation ACP-Advance Directive ACP-Power of Tool Sharpener Documents on File Type Date Recorded Patient Traffic Director Expl anation ACP-Advance Directive ACP-Power of Tool Sharpener Latest Code Status on File Code Status Date Activated Date Inactivated Comments Full Code 09/20/2020 11:51 AM History of Present Illness * Nasreen Bhatt RN - 09/02/2020 2:46 PM EST Left voice message with Karley and Bonita for the request of medical clearance and [...] SNF and will dishcharge to home with [facility]. , Hai. Notified. * Carolina Ervin, PT - 09/22/2020 9:48 AM EST Physical Therapy Facility/Department: [facility] Daily Treatment Note NAME: Levon Bond : 1950 Date of Service: 09/22/2020 Discharge [...] fatigue Activity Tolerance: Attempted to see pt eariler in morning and refused, but after education with RN, pt agreeable to PT. Very painful when starting session and then pain decreased per pt. Patient Diagnosis(es): The primary encounter diagnosis was Acute postoperative pain. A diagnosis ofLocalized osteoarthritis of right knee was also pertinent to this visit. has a past medical history of Anginal pain (HCC), Arthritis, Fibromyalgia, Hyperlipidemia, DE (myocardial infarction) (HCC), Mood swings, Prolonged emergence [...] to only perform slight LAQ. OutComes Score AM-[facility] Score AM-[facility] Inpatient Mobility Raw Score : 17 (09/22/20946) -[facility] Inpatient T-Scale Score : 42.13 (09/22/20946) Mobility Inpatient CMS 0-100% Score: 50.57 (09/22/20946) Mobility Inpatient [facility] G-Code Modifier : CK (09/22/20946) Goals Short term goals Time Frame for Short term goals: 5 visits: Short term goal 1: Pt. to be indep with bed mob. using sheet as leg appellate conferee for Rt. LE as needed Short term [...] Daily Rounding Note Admission Date: 09/20/2020 Levon Bond is a 70 y.o. male Post Op [...] that discharge plan is Home. Agency/Facility chosen: [facility] Awaiting pre-certification no Anticipated discharge date: 09/22/2019. [...] EST Physical Therapy DATE: 09/22/2020 NAME: Levon Bond : 1950 Patient not seen this date [...] Warner MD - 09/22/2020 8:09 AM EST [facility] Office: [phone] Dwayne Orourke DO, Sabino Archibald DO, Lam aMyo DO, Momo Aguilera DO, Tyson Warner MD, Amie Haque MD, Fernando Vera MD, Deanne Clay MD, Twin Be MD, Nadeen Amezcua MD, MD Ashia, Haris Pacheco MD, Shanae Ramirez MD, Sandoval Whitaker DO, Liane Carvajal MD, Beth Gordillo MD, Homar Dennis DO, Sofiya Guzmán MD, Nat Amezcua DO, Spencer Castellano MD, MD Juan, Donya Monsalve, GEEK SQUAD AUTOTECH, Adali Cameron, GEEK SQUAD AUTOTECH, Bambi Muhammad, GEEK SQUAD AUTOTECH, Jennifer Keller, DISTRIBUTION ACCOUNTING CLERK,Devyn Trejo, GEEK SQUAD AUTOTECH, Ladi Pedersen, GEEK SQUAD AUTOTECH, Deyanira Leo, GEEK SQUAD AUTOTECH, Mary Jane Bauman, GEEK SQUAD AUTOTECH, Kuldip Knight, GEEK SQUAD AUTOTECH, Charli Cueva PA-C, Heidi Foote DNP, Charline Swanson, GEEK SQUAD AUTOTECH, Adelina Adamson, GEEK SQUAD AUTOTECH, Madison Maya, GEEK SQUAD AUTOTECH, Gemma Lopez, GEEK SQUAD AUTOTECH, Lory Schrader, GEEK SQUAD AUTOTECH [facility] IN-PATIENT SERVICE [facility] Progress Note 09/22/2020 8:09 AM Name: Levon Bond Acct: [id number] Room: IP Day: 2 Admit Date: 09/20/2020 5:39 AM PCP: Charity Yin MD Code Status: Full Code Reason for Consult: Postoperative medical management Subjective: C/C: S/p right TKA Interval History Status: Indigestion better with PPI and Tums Denies any other new problem today Walked with physical therapy Brief History: Patient admitted under orthopedic service after right TKA with following information: This is Levon Bond a 70 y.o. male who presents for [...] Infusions: sodium chloride 125 mL/hr at 09/20/20 8914 PRN Meds: calcium carbonate, nitroGLYCERIN, sodium chloride flush, promethazine OR ondansetron,magnesium hydroxide, oxyCODONE OR oxyCODONE, HYDROmorphone OR HYDROmorphone, chlordiazePOXIDE Data: Past Medical History: has a past medical history of Anginal pain (HCC), Arthritis, Fibromyalgia, Hyperlipidemia, DE (myocardial infarction) (HCC), Mood swings, Prolonged emergence [...] No results for input(s): PROT, LABALBU, LABA1C, S2IBTDG, I0QOVRM, FT4, TSH, AST, ALT, LDH, GGT, ALKPHOS, LABGGT, BILITOT, BILIDIR, AMMONIA, AMYLASE, LIPASE, LACTATE, CHOL, HDL, LDLCHOLESTEROL, CHOLHDLRATIO, TRIG, VLDL, [id number], PHENYTOIN, PHENYF, URICACID, POCGLU in the last 72 hours. ABG:No results found for: POCPH, PHART, PH, POCPCO2, FNY8TTF, PCO2, POCPO2, PO2ART, PO2, POCHCO3, FBY5PKB, HCO3, NBEA, PBEA, BEART, BE, THGBART, THB, GAJ3JQB, WNKB9OMC, A7DYBBMF, O2SAT, FIO2 No results found for: SPECIAL [...] Hardin RN - 09/22/2020 3:51 AM EST Spray Drier noticed more redness on the outer part [...] MED SURG Daily Treatment Note NAME: Levon Bond : 1950 Date of Service: 09/21/2020 Discharge [...] of Anginal pain (HCC), Arthritis, Fibromyalgia, Hyperlipidemia, DE (myocardial infarction) (HCC), Mood swings, Prolonged emergence [...] Inpatient Mobility Raw Score : 17 (09/21/20 151) AM-PAC Inpatient T-Scale Score : 42.13 (09/21/201510) Mobility Inpatient CMS 0-100% Score: 50.57 (09/21/201510) Mobility Inpatient CMS G-Code Modifier : CK (09/21/201510) Goals Short term goals Time Frame for Short term goals: 5 visits: Short term goal 1: Pt. to be indep with bed mob. using sheet as leg appellate conferee for Rt. LE as needed Short term [...] AM EST CLINICAL PHARMACY NOTE: MEDS TO [facility] Patient?: No Total # of Prescriptions [...] 09/21/2020 10:34 AM EST Physical Therapy Facility/Department: [facility] MED SURG Daily Treatment Note NAME: Levon Bond : 1950 Date of Service: 09/21/2020 Discharge [...] of Anginal pain (HCC), Arthritis, Fibromyalgia, Hyperlipidemia, [place] (myocardial infarction) (HCC), Mood swings, Prolonged emergence [...] AM-PAC Inpatient Mobility Raw Score : 17 (09/21/201033) AM-PAC Inpatient T-Scale Score : 42.13 (09/21/201033) Mobility Inpatient CMS 0-100% Score: 50.57 (09/21/201033) Mobility Inpatient CMS G-Code Modifier : CK (09/21/201033) Goals Short term goals Time Frame for Short term goals: 5 visits: Short term goal 1: Pt. to be indep with bed mob. using sheet as leg appellate conferee for Rt. LE as needed Short term [...] Time Individual Concurrent Group Co-treatment Time In 804 Time Out 0900 Minutes 55 Carolina Ervin PT * Tyson Warner MD - 09/21/2020 9:10 AM EST [facility] Office: [phone] Dwayne Orourke DO, Sabino Archibald DO, Lam Mayo DO, Momo Aguilera DO, Tyson Warner MD, Amie Haque MD, Fernando Vera MD, Deanne Clay MD, wTin Be MD, Nadeen Amezcua MD, MD Ashia, Haris Pacheco MD, Shanae Ramirez MD, Sandoval Whitaker DO, Liane Carvajal MD, Beth Gordillo MD, Homar Dennis DO, Sofiya Guzmán MD, Nat Amezcua DO, Spencer Castellano MD, MD Juan, Donya Monsalve CNP, Adali Cameron CNP, Bambi Muhammad, GEEK SQUAD AUTOTECH, Jennifer Keller, DISTRIBUTION ACCOUNTING CLERK,Devyn Trejo, GEEK SQUAD AUTOTECH, Ladi Pedersen, GEEK SQUAD AUTOTECH, Deyanira Leo, GEEK SQUAD AUTOTECH, Mary Jane Bauman, GEEK SQUAD AUTOTECH, Kuldip Knight, GEEK SQUAD AUTOTECH, Charli Cueva PA-C, Heidi Foote, DNP, Charline Swanson, GEEK SQUAD AUTOTECH, Adelina Adamson, GEEK SQUAD AUTOTECH, Madison Maya, GEEK SQUAD AUTOTECH, Gemma Lopez, GEEK SQUAD AUTOTECH, Lory Schrader, G[employer] [facility] IN-PATIENT SERVICE [facility] Progress Note 09/21/2020 9:10 AM Name: Levon Bond Acct: [id number] Room: IP Day: 1 Admit Date: 09/20/2020 5:39 AM PCP: Charity Yin MD Code Status: Full Code Reason for Consult: Postoperative medical management Subjective: C/C: S/p right TKA Interval History Status: Requesting something for indigestion Denies any other new problem today Brief History: Patient admitted under orthopedic service after right TKA with following information: This is Levon Bond a 70 y.o. male who presents for [...] of Anginal pain (HCC), Arthritis, Fibromyalgia, Hyperlipidemia, DE (myocardial infarction) ([facility]), Mood swings, Prolonged emergence from general anesthesia, [...] RDW, PLT, MPV, SEDRATE, CRP, INR, DDIMER, [id number], LABABSO in the last 72 hours. Invalid input(s): PT Chemistry:No results for input(s): NA, K, CL, CO2, GLUCOSE, BUN, CREATININE, MG, ANIONGAP, LABGLOM,GFRAA, CALCIUM, CAION, PHOS, PSA, PROBNP, TROPHS, CKTOTAL, CKMB, CKMBINDEX, MYOGLOBIN, DIGOXIN, LACTACIDWB in the last 72 hours.No results for input(s): PROT, LABALBU, LABA1C, I2SCZUS, J6INOVC, FT4, TSH, AST, ALT, LDH, GGT, ALKPHOS, LABGGT, BILITOT, BILIDIR, AMMONIA, AMYLASE, LIPASE, LACTATE, CHOL, HDL, LDLCHOLESTEROL, CHOLHDLRATIO, TRIG, VLDL, QFR97QH, PHENYTOIN, PHENYF, URICACID, POCGLU in the last 72 hours. ABG:No results found for: POCPH, PHART, PH, POCPCO2, UTC0XNP, PCO2, POCPO2, PO2ART, PO2, POCHCO3, GBS9YLE, HCO3, NBEA, PBEA, BEART, BE, THGBART, THB, LIL1WNV, ESXP2KEB, K3PZJXEY, O2SAT, FIO2 No results found for: SPECIAL [...] by Tyson Warner MD after one surgery 1984 CAD (coronary artery disease) 09/20/2020 Yes Indigestion Plan: 1. Protonix 40 mg oral daily while in hospital 2. Tums as needed 3. Continue home dose of beta-blockers 4. Continue Librium as needed for mood swings 5. Okay to be discharged from medical standpoint Tyson Warner MD 09/21/2020 9:10 AM * Kareem Diaz MD - 09/21/2020 7:50 AM EST Ortho [id number] Discussion of Medical Necessity for Use of [...] AM EST Orthopaedic Progress Note SUBJECTIVE Mr. 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 [...] with bed mob. using sheet as leg appellate conferee for Rt. LE as needed Short term [...] goals. 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 [...] cues for some Perception Overall Perceptual Status: WF Sensation Overall Sensation Status: Impaired(describes numbness in groin area and buttocks. Does not feel pain) LUE AROM (degrees) LUE AROM : WFL RUE AROM (degrees) RUE AROM : WFL LUE Strength Gross LUE Strength: WFL LUE Strength Comment: Anyi UBilly's 5/5 RUE Strength Gross RUE Strength: WFL Plan Plan Times per week: 5-6 x/week, 1-2x/day Current Treatment Recommendations: Strengthening, Balance Training, Functional Mobility Training, Endurance Training, Safety Education & Training, Self-Care / ADL, Patient/Caregiver Education & Training, Equipment Evaluation, Education, & procurement, Positioning Goals Short term goals Time Frame for Short term goals: by discharge, pt will Short term goal 1: demo S/DE with ADL transfers and functional mob with good safety/pacing and approp AD/DME Short term goal 2: demo S/DE with toileting routine Short term goal 3: [...] Daily Rounding Note Admission Date: 09/20/2020 Levon Bond is a 70 y.o. male Post Op [...] plan is Home. Agency/Facility chosen: [facility] Awaiting pre-certification no Anticipated discharge date: [...] Coronary atherosclerosis of unspecified type of vessel, [place] or graft Reason for Referral Status Reason Specialty Diagnoses / Procedures Referred By Contact Referred To Contact Open Patient Preference Physical Therapy Diagnoses Acute postoperative pain Localized osteoarthritis of right knee Kareem Diaz MD [address] [place] [address] Specialty Diagnoses / Procedures Referred By Contac t Referred To Contact Diagnoses Coronary artery disease involving [place] coronary artery of [place] heart without angina pectoris Preop examination Urinary frequency Hypertension, unspecified type Procedures ECG 12 lead Juan Carlos Alas Jr., DO [address] [place] [address] Referral ID Status Reason Start Date Expiration Date V isits Requested Visits Authorized [id number] Pending Review 11/05/2023 11/04/2024 1 1 Hospital Course * Kareem Diaz MD - 09/21/2020 7:53 AM EST Physician Discharge Summary Patient ID: Levon Bond [id number] 70 y.o. 1950 Admit date: 09/20/2020 Discharge date and time: No discharge date for patient encounter. Admitting Physician: Kareem Diaz MD Discharge Physician: Kareem Diaz MD Admission Diagnoses: Localized osteoarthritis of right knee [M17.11] Discharge Diagnoses: Localized osteoarthritis of right knee [M17.11] Hospital Course: Right total knee arthroplasty Consults: Hospitalist Condition: Stable Treatments: Occupational therapy and physical therapy Disposition: Home Patient Instructions: Levon Bond Home Medication Instructions [id number] Printed on:09/21/20 0756 Medication Information aspirin 325 MG EC tablet [...] Instructions * Discharge Instr - SERJIO* Jeremías Aguirre, RN - 09/21/2020 7:53 AM EST Continuity of Care Form Patient Name: Levon Bond : 1950 Admit date: 09/20/2020 Discharge date: [...] Extended Emergency Contact Information Primary Emergency Contact: AnandasharonHai kebede [facility] Relation: Spouse Past Surgical History: Past Surgical History: Procedure Laterality Date ANKLE SURGERY CARDIAC CATHETERIZATION 12/19/2015 double bypass CARPAL TUNNEL RELEASE Bilateral CERVICAL FUSION COLONOSCOPY CORONARY ARTERY BYPASS GRAFT 2016 Double bypass LEG SURGERY due to accident RI SHLDR ARTHROSCOP,SURG,W/ROTAT CUFF REPR Left 04/01/2018 SHOULDER ARTHROSCOPY LEFT WITH ROTATOR CUFF REPAIR - KAMARA & NEPHEW performed by Kareem Diaz MD at [facility] OR ROTATOR CUFF REPAIR Left 04/01/2018 with arthroscopy TOTAL KNEE ARTHROPLASTY Right 09/20/2020 RIGHT KNEE TOTAL ARTHROPLASTY performed by Kareem Diaz MD at [facility] OR TRANSESOPHAGEAL ECHOCARDIOGRAM 12/19/2015 Immunization History: There [...] Independent Dressing Assisted Toileting Independent Feeding Independent Handtools Repairer Independent Med Delivery whole Wound Care Documentation [...] select all that are sent with patient): Wendi CARTER SIGNATURE: CASE MANAGEMENT/SOCIAL WORK SECTION Inpatient Status Date: Readmission Risk Assessment Score: Readmission Risk Risk of Unplanned Readmission: 6 Discharging to Facility/ Agency Name: [facility] Details FAX [id number] [place] [address] Dialysis Facility (if applicable) Name: Address: Dialysis Schedule: Phone: Fax: Motorcycle Service Technician/Plant Etiologist signature: PHYSICIAN SECTION Prognosis: Good Condition at Discharge: Stable Rehab Potential (if transferring to Rehab): Good Recommended Labs or Other Treatments After Discharge: Physical therapy Physician Certification: I certify the above information and transfer of Levon Bond is necessary for the continuing treatment of the diagnosis listed and that he requires Home Care for less 30days. Update Admission H&P: No change in H&P PHYSICIAN SIGNATURE: * Additional Instructions* Raj Finch RN - 09/20/2020 ANY ORTHOPEDIC QUESTIONS OR ANY OTHER CONCERNS YOU MAY CALL THE ORTHOPEDIC COORDINATOR: RAJ FINCH RN, BSN [phone] [email or web address] YOU MAY ALSO MESSAGE ME ON GET [...] If dressing falls off, call surgeon. ? Keshia Hose on in the am and off [...] orthopedic appointment with surgeon Discharge instructions video: [email or web address] Keep it Clean Post-Operative Home instructions These instructions are to help you have the best possible recovery after your surgical procedure. [facility] is here to support you. If you have questions, call [phone] Saturday through Saturday from 7:30AM to 8:30PM to speak to a nurse. If you need to speak to someone outside of these hours, call your physician. Incision Do s and Don ts Do wash hands before and after dressing changes or when you have had any contact with your incision. Use hand estimator project manager or antibacterial soap. Do keep your incision [...] to your discharge paperwork for further instructions [employer] SURGICAL DRESSING: A waterproof barrier to protect [...] Everywhere. * TKR (Total Knee Replacement): Post-op (Mauritian) * TKR (Total Knee Replacement): Rehabilitation (Mauritian) * Constipation (Mauritian) * DVT (Deep Vein Thrombosis): General Info (Mauritian) * acetaminophen and oxycodone (Mauritian) * aspirin (oral) (Mauritian) * docusate and senna (Mauritian) documented in this encounter Additional Source Comments (unrecognized sect ion and content) No Status Records FoundNo Status Records FoundNo Status Records FoundNo Status Records FoundNo Status Records FoundNo Status Records Found INFORMATION SOURCE (unrecogn ized section and content) DATE CREATED AUTHOR 03/12/2018 [facility] DATE CREATED AUTHOR AUTHOR'S ORGANIZ ATION 09/23/2020 [facility] DATE CREATED AUTHOR AUTHOR'S ORGANIZ ATION 07/09/2022 [facility] DATE CREATED AUTHOR AUTHOR'S ORGANIZ ATION 02/22/2023 [facility] DATE CREATED AUTHOR AUTHOR'S ORGANIZ ATION 11/23/2023 [facility] DATE CREATED AUTHOR AUTHOR'S ORGANIZ ATION 12/31/[address] [facility] EPIC Reason for Visit (unrecogniz ed section and content) Status Reason Specialty Diagnoses / Procedures Referre d By Contact Referred To Contact Diagnoses Osteoarthritis of right knee DX OA RIGHT KNEE Procedures RI TOTAL KNEE ARTHROPLASTY RIGHT KNEE TOTAL ARTHROPLASTY- BIOMET Kareem Diaz MD [address] [place] [address] [facility] Reason Comments Pain Ordered Prescriptions (unrec ognized section and content) [...] 2 times daily 30 capsule 0 09/21/2020 Care Teams (unrecognized sec tion and content) Die Sinker Apprentice Relationship Specialty [place] [address] [place] [phone] PCP - General Family Medicine 01/30/23 Die Sinker Apprentice Relationship Specialty Start Date End Date Charity Yin MD [address] [place] [address] PCP - General 05/12/18 FOR RECORDS PERTAINING TO PATIENTS WHO ARE [...] BE BASED ON THE PRIMARY CLINICAL RECORDS. [facility] [place] [facility]. provides no warranty or guarantee of the accuracy or completeness of information in this document.
[2024-01-02 08:29] LABS: Basophils Percent Auto 0.6 % (0.2-2.0); Eosinophils Absolute Auto 0.2 10^3/uL (0.0-0.7); Eosinophils Percent Auto 3.5 % (0.9-7.0); Hemoglobin 13.8 g/dL (14.0-18.0); Immature Granulocytes Abs Auto 0.01 10^3/uL (0.00-0.03); Immature Granulocytes Pct Auto 0.2 % (0.0-0.5); Lymphocytes Absolute Auto 1.3 10^3/uL (1.2-3.8); Lymphocytes Percent Auto 25.6 % (20.5-60.0); Mean Corpuscular HGB Conc 31.4 g/dL (29.9-35.2); Mean Corpuscular Hemoglobin 30.1 pg (25.9-34.0); Mean Corpuscular Volume 95.9 fL (80.0-94.0); Mean Platelet Volume 9.6 fL (9.5-13.5); Monocytes Absolute Auto 0.6 10^3/uL (0.3-0.8); Monocytes Percent Auto 12.1 % (1.7-12.0); Platelet Count 321 10^3/uL (150-450); Red Blood Count 4.59 10^6/uL (4.70-6.10); Red Cell Distribution Width 12.6 % (11.0-15.0); White Blood Count 5.2 10^3/uL (4.0-11.0)
[2024-01-02 08:48] LABS: Estimated Average Glucose 100 mg/dL; Glycohemoglobin A1C 5.1 % (4.5-6.2)
[2024-01-02 10:23] LABS: Alanine Aminotransferase 25 U/L (16-63); Albumin Globulin Ratio 0.9; Albumin Level 3.8 g/dL (3.4-5.0); Alkaline Phosphatase 94 U/L (46-116); Anion Gap 11.7; Aspartate Amino Transferase 24 U/L (15-37); BUN Creatinine Ratio 12.7; Bilirubin Total 0.5 mg/dL (0.2-1.0); Calcium 9.9 mg/dL (8.5-10.1); Carbon Dioxide 30.5 mmol/L (21.0-32.0); Chloride 101 mmol/L (98-107); Chol HDL Ratio 2.9; Cholesterol 140 mg/dL (<=200); Estimated GFR (African America >60 (>=60); Estimated GFR (Non-African Ame >60 (>=60); Free T3 3.85 pg/mL (2.18-3.98); Globulin 4.2 g/dL; Glucose 92 mg/dL (74-106); HDL Cholesterol 48 mg/dL (40-60); LDL Cholesterol Calculated 77.6 mg/dL; Potassium 4.2 mmol/L (3.5-5.1); Sodium 139 mmol/L (136-145); Thyroid Stimulating Hormone 4.877 uIU/mL (0.358-3.740); Triglycerides 72 mg/dL (<=150); Uric Acid 4.4 mg/dL (3.5-7.2); VLDL CHOLESTEROL 14.4 mg/dL
[2024-01-02 10:39] LABS: Prostate Specific Antigen Scrn 1.87 ng/mL (<=4.00)
== END 2024-01-02 07:56 | disposition home or self-care (01) ==
LOC: LAB 07:57
PROVIDERS: PCP Family Medicine; Visit Provider Family Medicine
DX: K59.00 Constipation, unspecified (principal); Z95.1 Presence of aortocoronary bypass graft; E78.5 Hyperlipidemia, unspecified; Z86.79 Personal history of other diseases of the circulatory system; Z12.5 Encounter for screening for malignant neoplasm of prostate; R73.09 Other abnormal glucose
CPT/HCPCS: 36415; 80053; 80061; 83036; 84436; 84443; 84481; 84550; 85025; G0103

== ENCOUNTER 2024-01-04 11:00 | Outpatient (REF) | payer MEDICARE, OTHER, SELFPAY ==
--- OUTSIDE RECORDS SUMMARY | 2024-01-04 11:05 | XMS_ITS | CCD ---
Author Organization [facility] Care Team Providers Care Client Experience Consultant Name Role Phone PHYSICIAN, DEFAULT Unavailable Unavailable PHYSICIAN, DEFAULT Unavailable Unavailable Charity Yin Primary Care Provider CHARITY YIN Primary Care Unavailable KAREEM DIAZ [...] DR NASH Attending Unavailable HOY ., DR NSAH Primary Care Unavailable HOY ., DR NASH Admitting Unavailable HOY ., DR NASH Attending Unavailable HOY ., DR NASH Consulting Unavailable Charity Yin MD Primary Care Provider [phone] Charity Yin MD Primary Care Provider [phone] JUAN CARLOS ALAS JR Admitting Unavailabl e STEPJUAN CARLOS QUEZADA JR Attending Unavailabl e ANNAMARIA, CHARITY M Primary Care Unavailable RUDY VIRAMONTES Consulting Unavailable CHON WILKINSON Attending Unavailable ANNAMARIA CHARITY M Primary Care Unavailable JUAN CARLOS ALAS JR Referring Unavailabl e HORonny, CHARITY M Primary Care Unavailable JUAN CARLOS ALAS JR Referring Unavailabl e HOY, CHARITY M Primary Care Unavailable JUAN CARLOS ALAS JR Attending Unavailabl e STEPANIC JUAN CARLOS LORD Referring Unavailabl e HOY, CHARITY M Primary Care Unavailable JUAN CARLOS ALAS JR Attending Unavailabl e STEPANIC JUAN CARLOS LORD Referring Unavailabl e HOY, CHARITY M Primary Care Unavailable JUAN CARLOS ALAS JR Attending Unavailabl e STEPJUAN CARLOS QUEZADA JR Referring Unavailabl e ANNAMARIA, CHARITY M [...] Unavailable JR. ALAS GEORGE C Referring Unavaila ble SANDRA BURR Attending Unavailable SANDRA BURR Referring Unavailable BARBY GRIGGS Attending Unavailable JR. ALAS GEORGE C Referring Unavaila LUKE Lynn Attending Unavailable JR. ALAS GEORGE C Referring Unavaila BARBY Crandall Attending Unavailable JR. ALAS GEORGE C Referring Unavaila ble SANDRA BURR Attending Unavailable Medications Current Medications Medication Drug [...] twenty-four hours as needed for pain HYDROcodone-acetaminophen ([place]) 5-325 MG tablet 1-2 tablets Orally every [...] CLEANUP) docusate sodium 50 mg / sennosides, detention 8.6 mg oral tablet (1 source) Start: [...] Coronary arteriosclerosis; Translations: [Atherosclerotic heart disease of [place] coronary artery without angina pectoris] Onset: 04-10-2019 [...] (Bld) [Volume fraction] 36.0 % Low 39-49 [facility] Comment on above: Performed By: #### H H #### [facility] ([id number]) [address] [place] [address], [place] [address] Hemoglobin (Bld) [Mass/Vol] 12.3 g/dL Low 13.0-17.0 [facility] Comment on above: Performed By: #### H H #### [facility] ([id number]) [address] [place] [address] HGB AND HCTon 11-20-2023 Hematocrit (Bld) [Volume fraction] 37.5 % Low 39-49 [facility] Comment on above: Performed By: #### H H #### [facility] ([id number]) [address] [place] [address] Hemoglobin (Bld) [Mass/Vol] 12.9 g/dL Low 13.0-17.0 [facility] Comment on above: Performed By: #### H H #### [facility] ([id number]) [address] [place] [address] HGB AND HCTon 11-19-2023 Hematocrit (Bld) [Volume fraction] 42.5 % Normal 39-49 [facility] Comment on above: Performed By: #### H H #### [facility] ([id number]) [address] [place] [address] Hemoglobin (Bld) [Mass/Vol] 14.3 g/dL Normal 13.0-17.0 [facility] Comment on above: Performed By: #### H H #### [facility] ([id number]) [address] [place] [address] XR KNEE LT 1 OR 2 VWSon [...] Fletcher MD on 11/19/2023 2:43 PM Normal [facility] XR BONE LENGTH STUDYon 11-10 XR BONE LENGTH STUDY XR BONE LENGTH STUDY CLINICAL INFORMATION:[place] ry artery disease involving [place] coronary artery of [place] heart without angina pectoris; Preop examination; Urinary [...] Meraz MD on 11/10/2023 2:18 PM Normal [facility] Bacteria identified Cx Nom ( U)on 11-09-2023 Service comment (Unsp spec) [Interp] <10,000 ORGANISMS/ML NORMAL URO GENITAL BEST [facility] BASIC METABOLIC PANLon 11-08 Anion gap [Moles/Vol] 7 mmol/L Normal 5-15 [facility] Comment on above: Performed By: #### C BCA, BMP #### [facility] ([id number]) [address], [address] [place] [address] Calcium [Mass/Vol] 10.0 mg/dL Normal 8.5-10.5 [facility] Comment on above: Performed By: #### C BCA, BMP #### [facility] ([id number]) [address], [address] [place] [address] Chloride [Moles/Vol] 101 mmol/L Normal 98-109 [facility] Comment on above: Performed By: #### C BCA, BMP #### [facility] ([id number]) [address], [address] [place] [address] CO2 [Moles/Vol] 30 mmol/L Normal 22-32 [facility] Comment on above: Performed By: #### C BCA, BMP #### [facility] ([id number]) [address], [address] [place] [address] Creatinine [Mass/Vol] 0.92 mg/dL Normal 0.60-1.30 [facility] Comment on above: Result Comment: METH OD TRACEABLE TO IDMS STANDARD Performed By: #### C BCA, BMP #### [facility] ([id number]) [address], [address] [place] [address] GFR/1.73 sq M.predicted among non-blacks MDRD (S/P/Bld) [Vol rate/Area] 88 mL/min/{1.73_m2} Normal >59 [facility] Comment on above: Result Comment: Reported eGFR is based on the CKD-EPI 2020 equation that does not use a race coefficient. Performed By: #### C BCA, BMP #### [facility] ([id number]) [address], [address] [place] [address] Glucose [Mass/Vol] 94 mg/dL Normal 65-99 [facility] Comment on above: Performed By: #### C BCA, BMP #### [facility] ([id number]) [address] [address] [place] [address] Potassium [Moles/Vol] 4.7 mmol/L Normal 3.5-5.0 [facility] Comment on above: Performed By: #### C BCA, BMP #### [facility] ([id number]) [address], [address] [place] [address] Sodium [Moles/Vol] 138 mmol/L Normal 134-146 [facility] Comment on above: Performed By: #### C BCA, BMP #### [facility] ([id number]) [address] [address] [place] [address] Urea nitrogen [Mass/Vol] 23 mg/dL Normal 5-27 [facility] Comment on above: Performed By: #### C BCA, BMP #### [facility] ([id number]) [address], [address] [place] [address] Basic Metabolic Panelon 10-18 Anion gap [Moles/Vol] 7 mmol/L 5 - 15 mmol/L [facility] Calcium [Mass/Vol] 10.0 mg/dL 8.5 - 10. 5 mg/dL [facility] Chloride [Moles/Vol] 101 mmol/L 98 - 109 mmol/L [facility] CO2 [Moles/Vol] 30 mmol/L 22 - 32 mmol/L [facility] Creatinine [Mass/Vol] 0.92 mg/dL 0.60 - 1.30 mg/dL [facility] Comment on above: METHOD TRACEABLE TO IDSC STANDARD eGFR (CKD-EPI)non-race dependent 88 - PINF [facility] Comment on above: Reported eGFR is based on the CKD-EPI 2020 equation that does not use a race coefficient. Glucose [Mass/Vol] 94 mg/dL 65 - 99 mg/dL [facility] Potassium [Moles/Vol] 4.7 mmol/L 3.5 - 5.0 mmol/L [facility] Sodium [Moles/Vol] 138 mmol/L 134 - 146 mmol/L [facility] Urea nitrogen [Mass/Vol] 23 mg/dL 5 - 27 mg/dL [facility] CBC AND AUTO DIFFon 11-08-19 ABSOLUTE BASOPHIL 0.0 X10E9/L Normal 0.0-0.2 [facility] Comment on above: Performed By: #### Natalia BCA, BMP #### [facility] ([id number]) [address] [place] [address] ABSOLUTE NEUTROPHIL 6.9 X10E9/L High 1.5-6.6 [facility] Comment on above: Performed By: #### Natalia BCA, BMP #### [facility] ([id number]) [address] [place] [address] Basophils/100 WBC (Bld) 0.4 % Normal [facility] Comment on above: Performed By: #### Natalia BCA, BMP #### [facility] ([id number]) [address] [address] [place] [address] Eosinophils (Bld) [#/Vol] 0.0 10*3/uL Normal 0.0-0.4 [facility] Comment on above: Performed By: #### C ALISTAIR, BMP #### [facility] ([id number]) [address] [address] [place] [address] Eosinophils/100 WBC (Bld) 0.6 % Normal [facility] Comment on above: Performed By: #### C ALISTAIR, BMP #### [facility] ([id number]) [address] [address] [place] [address] Erythrocyte distribution width (RBC) [Ratio] 13.3 % Normal 11.5-15.0 [facility] Comment on above: Performed By: #### C ALISTAIR, BMP #### [facility] ([id number]) [address] [address] [place] [address] Hematocrit (Bld) [Volume fraction] 45.3 % Normal 39-49 [facility] Comment on above: Performed By: #### C ALISTAIR, BMP #### [facility] ([id number]) [address] [address] [place] [address] Hemoglobin (Bld) [Mass/Vol] 15.3 g/dL Normal 13.0-17.0 [facility] Comment on above: Performed By: #### C ALISTAIR, BMP #### [facility] ([id number]) [address] [address] [place] [address] Lymphocytes (Bld) [#/Vol] 1.1 10*3/uL Normal 1.0-3.5 [facility] Comment on above: Performed By: #### C ALISTAIR, BMP #### [facility] ([id number]) [address], [facility] [address] [place] [address] Lymphocytes/100 WBC (Bld) 12.3 % Normal [facility] Comment on above: Performed By: #### C BCA, BMP #### [facility] ([id number]) [address] [place] [address] MCH (RBC) [Entitic mass] 32.3 pg Normal 27-34 [facility] Comment on above: Performed By: #### C BCA, BMP #### [facility] ([id number]) [address], [address] [place] [address] MCHC (RBC) [Mass/Vol] 33.7 g/dL Normal 32-36 [facility] Comment on above: Performed By: #### C ALISTAIR, BMP #### [facility] ([id number]) [address], [address] [place] [address] MCV (RBC) [Entitic vol] 96 fL Normal 80-100 [facility] Comment on above: Performed By: #### C BCA, BMP #### [facility] ([id number]) [address] [place] [address] Monocytes (Bld) [#/Vol] 0.8 10*3/uL Normal 0-0.9 [facility] Comment on above: Performed By: #### C BCA, BMP #### [facility] ([id number]) [address] [place] [address] Monocytes/100 WBC (Bld) 9.0 % Normal [facility] Comment on above: Performed By: #### C BCA, BMP #### [facility] ([id number]) [address], [address] [place] [address] Neutrophils/100 WBC (Bld) 77.7 % Normal [facility] Comment on above: Performed By: #### C BCA, BMP #### [facility] ([id number]) [address] [place] [address] Platelet mean volume (Bld) [Entitic vol] 8.9 fL Normal 7-12 [facility] Comment on above: Performed By: #### Natalia SAINZ, BMP #### [facility] ([id number]) [address], [address] [place] [address] Platelets (Bld) [#/Vol] 257 10*3/uL Normal 150-450 [facility] Comment on above: Performed By: #### Natalia SAINZ, BMP #### [facility] ([id number]) [address], [address] [place] [address] RBC COUNT 4.73 X10E12/L Normal 4.10-5.70 [facility] Comment on above: Performed By: #### Natalia SAINZ, BMP #### [facility] ([id number]) [address], [address] [place] [address] WBC (Bld) [#/Vol] 8.9 10*3/uL Normal 4.0-11.0 [facility] Comment on above: Performed By: #### Natalia SAINZ, BMP #### [facility] ([id number]) [address], [address] [place] [address] CBC auto differentialon 10-18 Basophils (Bld) [#/Vol] 0.0 10*3/uL [facility] Basophils/100 WBC (Bld) 0.4 % [facility] Eosinophils (Bld) [#/Vol] 0.0 10*3/uL [facility] Eosinophils/100 WBC (Bld) 0.6 % [facility] Erythrocyte distribution width (RBC) [Ratio] 13.3 % 11.5 - 15.0 % [facility] Hematocrit (Bld) [Volume fraction] 45.3 % 39 - 49 % [facility] Hemoglobin (Bld) [Mass/Vol] 15.3 g/dL 13.0 - 17.0 g/dL [facility] Interpretation and review of laboratory results Abnormal [facility] Lymphocytes (Bld) [#/Vol] 1.1 10*3/uL [facility] Lymphocytes/100 WBC (Bld) 12.3 % [facility] MCH (RBC) [Entitic mass] 32.3 pg 27 - 34 pg [facility] MCHC (RBC) [Mass/Vol] 33.7 g/dL 32 - 36 g/dL [facility] MCV (RBC) [Entitic vol] 96 fL 80 - 100 fL [facility] Monocytes (Bld) [#/Vol] 0.8 10*3/uL [facility] Monocytes/100 WBC (Bld) 9.0 % [facility] Neutrophils (Bld) [#/Vol] 6.9 10*3/uL High [facility] Neutrophils/100 WBC (Bld) 77.7 % [facility] Platelet mean volume (Bld) [Entitic vol] 8.9 fL 7 - 12 fL [facility] Platelets (Bld) [#/Vol] 257 10*3/uL [facility] RBC (Bld) [#/Vol] 4.73 10*6/uL [facility] WBC corrected for nucl RBC Auto (Bld) [#/Vol] 8.9 [facility] ECG 12 leadon 11-08-2023 TRACEMASTERVUE [facility] Type and screen(includes ind irect wanda)on 11-08-2023 ABO O [facility] Rh Nom (Bld) Positive [facility] URINALYSISon 11-08-2023 Bilirubin Ql (U) Negative Normal NEG [facility] BLOOD/HGB Negative Normal NEG [facility] Color (U) YELLOW Normal YELLOW [facility] Glucose Ql (U) Negative Normal NEG [facility] Ketones Ql (U) Negative Normal NEG [facility] Leukocyte esterase Test strip Ql (U) Negative Normal NEG [facility] Nitrite Ql (U) Negative Normal NEG [facility] pH (U) 6.0 [pH] Normal 5.0-8.5 [facility] Protein Ql (U) Negative Normal NEG [facility] Specific gravity (U) [Rel density] 1.010 Normal 1.003-1.035 [facility] TURBIDITY CLEAR Normal CLEAR [facility] Urobilinogen (U) [Mass/Vol] mg/dL Normal <1.1 [facility] URINE CULTUREon 11-08-2023 Bacteria identified Cx Nom (U) CULTURE RESULTS <10,000 ORGANISMS/ML NORMAL URO GENITAL BEST Normal [facility] Comment on above: Performed By: #### 6 30-4 #### [facility] ([id number]) [address] [place] [address] Urinalysison 11-08-2023 Bilirubin Ql (U) Negative Negative^Ne gati ve [facility] Color (U) YELLOW YELLOW^YELLOW [facility] Glucose (U) [Mass/Vol] Negative Negative^Negati ve mg/dL [facility] Hemoglobin Auto test strip Ql (U) Negative Negative^Negati ve [facility] Ketones (U) [Mass/Vol] Negative Negative^Negati ve mg/dL [facility] Leukocyte esterase Auto test strip Ql (U) Negative Negative^Negati ve [facility] Nitrite Auto test strip Ql (U) Negative Negative^Negati ve [facility] pH (U) 6.0 [pH] 5.0 - 8.5 [facility] Protein (U) [Mass/Vol] Negative Negative^Negati ve mg/dL [facility] Specific gravity Refractometry automated (U) [Rel density] 1.010 1.003 - 1.035 [facility] Turbidity Ql (U) CLEAR CLEAR^CLEAR [facility] Urobilinogen Qn (U) NINF [facility] XR Knee - left 1 or 2 Viewso n 10-23-2023 Imaging Result: AP and lateral views of left knee showed severe varus deformity with [id number] articulation to the medial joint line, flattening [...] [facility] MRI KNEE LT WO CONon 2 023 MRI KNEE LT WO CON EXAMINATION: [...] VALERIE CHRISTY Date: 2022-11-27 08:55 Normal [facility] OCC BLD IMMUNO SCREENon 03-0 OCCULT BLOOD Negative Normal NEGATIVE [facility] Comment on above: Performed By: #### O BSCRN #### [facility] Laboratory [address] [place], [place] [address] Dr. Ankit Peters INSULINon 11-15-2022 Insulin 12.6 uIU/mL Normal 2.6-24.9 [facility] Comment on above: Performed By: #### I NSULIN ####[facility] [address] [place], [place] [address]Yx. Yilan Fran CBC AUTO DIFFon 11-14-2022 BASO # 0.0 103/ul Normal 0.0-0.1 [facility] Comment on above: Performed By: #### C BC ####[facility] [address] [place] [id number]. Ankit Fran Basophils/100 WBC (Bld) 0.5 % Normal 0.2-2.0 [facility] Comment on above: Performed By: #### C BC ####[facility] [address] [place] [address]Dr. Ankit Fran EO # 0.1 103/ul Normal 0.0-0.7 [facility] Comment on above: Performed By: #### C BC ####[facility] [address] [place] [address]Dr. Yolandaradha Peters Eosinophils/100 WBC (Bld) 2.0 % Normal 0.9-7.0 [facility] Comment on above: Performed By: #### C BC ####[facility] [address] [place], [place] [address]Dr. Ankit Fran Erythrocyte distribution width (RBC) [Ratio] 12.6 % Normal 11.0-15.0 [facility] Comment on above: Performed By: #### C BC ####[facility] [address] [place] [address]Dr. Ankit Fran Hematocrit (Bld) [Volume fraction] 46.6 % Normal 42.0-54.0 [facility] Comment on above: Performed By: #### C BC ####[facility] [address] [place] [address]Dr. Ankit Fran Hemoglobin (Bld) [Mass/Vol] 15.3 g/dL Normal 14.0-18.0 [facility] Comment on above: Performed By: #### C BC ####[facility] [address] [place] [address]Dr. Ankit Peters IG # 0.02 10e3/ul Normal 0.00-0.03 [facility] Comment on above: Performed By: #### C BC ####[facility] [address] [place] [id number]. Ankit Peters IG % 0.3 % Normal 0.0-0.5 [facility] Comment on above: Performed By: #### C BC ####[facility] [address] [place] [id number]. Ankit Fran LYMPH # 1.4 103/ul Normal 1.2-3.8 [facility] Comment on above: Performed By: #### C BC ####[facility] [address] [place] [id number]. Ankit Fran Lymphocytes/100 WBC (Bld) 21.5 % Normal 20.5-60.0 [facility] Comment on above: Performed By: #### C BC ####[facility] [address] [place] [id number]. Ankit Fran MANUAL DIFF REQ NO Normal [facility] Comment on above: Performed By: #### C BC ####[facility] [address] [place] [id number]. Ankit Fran MCH (RBC) [Entitic mass] 31.6 pg Normal 25.9-34.0 [facility] Comment on above: Performed By: #### C BC ####[facility] [address] [place] [id number]. Ankit Peters MCHC (RBC) [Mass/Vol] 32.8 g/dL Normal 29.9-35.2 [facility] Comment on above: Performed By: #### C BC ####[facility] [address] [place] [id number]. Ankit Fran MCV (RBC) [Entitic vol] 96.3 fL Critically high 80.0-94.0 [facility] Comment on above: Performed By: #### C BC ####[facility] [address] [place] [id number]. Ankit Fran MONO # 0.6 103/ul Normal 0.3-0.8 [facility] Comment on above: Performed By: #### C BC ####[facility] [address] [place], [place] [address]Pi. Ankit Peters Monocytes/100 WBC (Bld) 9.3 % Normal 1.7-12.0 [facility] Comment on above: Performed By: #### C BC ####[facility] [address] [place], [place] [address]Hp. Ankit Peters NEUT # 4.4 103/ul Normal 1.4-6.5 [facility] Comment on above: Performed By: #### C BC ####[facility] [address] [place] [id number]. Ankit Peters Neutrophils/100 WBC (Bld) 66.4 % Normal 43.0-75.0 [facility] Comment on above: Performed By: #### C BC ####[facility] [address] [place] [id number]. Ankit Peters Platelet mean volume (Bld) [Entitic vol] 9.5 fL Normal 9.5-13.5 [facility] Comment on above: Performed By: #### C BC ####[facility] [address] [place] [id number]. Ankit Peters PLT 234 103/ul Normal 150-450 [facility] Comment on above: Performed By: #### C BC ####[facility] [address] [place] [id number]. Ankit Peters RBC 4.84 106/ul Normal 4.70-6.10 [facility] Comment on above: Performed By: #### C BC ####[facility] [address] [place] [id number]. Ankit Peters WBC 6.6 103/ul Normal 4.0-11.0 [facility] Comment on above: Performed By: #### C BC ####[facility] [address] [place] [id number]. Ankit Peters FREE THYROXINE INDEX T7on FTI 2.82 Normal 1.30-4.50 [facility] Comment on above: Performed By: #### L IPID, URIC, CMP, TSH, T7 #### [facility] Laboratory [address] [place] [address] Dr. Ankit Peters T3U 34.0 % Normal 33.0-40.0 [facility] Comment on above: Performed By: #### L IPID, URIC, CMP, TSH, T7 #### [facility] [address] [place] [address] [address] Ankit Peters T4 [Mass/Vol] 8.30 ug/dL Normal 4.50-12.10 [facility] Comment on above: Performed By: #### L IPID, URIC, CMP, TSH, T7 #### [facility] [address] [place] [address] Dr. Ankit Peters GLYCOHEMOGLOBIN A1Con 2022 ADA RECOMMENDATION SEE BELOW Normal [facility] Comment on above: Result Comment: ADA RECOMMENDED LIMIT 4.0 - 6.0 ADA THERAPEUTIC TARGET < 7.0 ACTION SUGGESTED > 7.0 Performed By: #### A 1C #### [facility] [address] [place] [address] Dr. Ankit Peters Glucose [Mass/Vol] 105 mg/dL Normal [facility] Comment on above: Performed By: #### A 1C #### [facility] [address] [place] [address] Dr. Ankit Peters HbA1c (Bld) [Mass fraction] 5.3 % Normal 4.5-6.2 [facility] Comment on above: Performed By: #### A 1C #### [facility] [address] [place] [address] Dr. Ankit Peters LIPID PROFILEon 11-14-2022 CHOL-HDL RATIO NORM SEE BELOW Normal [facility] Comment on above: Result Comment: 3.3 - 4.4 LOW RISK 4.4 - 7.1 AVERAGE RISK 7.1 - 11.0 MODERATE RISK >11.0 HIGH RISK Performed By: #### L IPID, URIC, CMP, TSH, T7 #### [facility] [address] [place] [address] Dr. Ankit Peters Cholesterol [Mass/Vol] 154 mg/dL Normal <=200 [facility] Comment on above: Performed By: #### L IPID, URIC, CMP, TSH, T7 #### [facility] [address] [address] [address] Ankit Peters Cholesterol in HDL [Mass/Vol] 55 mg/dL Normal 40-60 [facility] Comment on above: Performed By: #### L IPID, URIC, CMP, TSH, T7 #### [facility] [address] [address] [address] Ankit Peters Cholesterol in LDL [Mass/Vol] 84.2 mg/dL Normal [facility] Comment on above: Performed By: #### L IPID, URIC, CMP, TSH, T7 #### [facility] [address] [address] [address] Ankit Peters Cholesterol.total/C holesterol in HDL [Mass ratio] 2.8 {ratio} Normal [facility] Comment on above: Performed By: #### L IPID, URIC, CMP, TSH, T7 #### [facility] [address] [address] [address] Ankit Peters HDL NORMAL > or = 60 mg/dl - LOW CARDIOVASCULAR RISK <40 mg/dl - HIGH CARDIOVASCULAR RISK Normal [facility] Comment on above: Performed By: #### L IPID, URIC, CMP, TSH, T7 #### [facility] [address] [address] [address] Ankit Peters LDL CALC NORMAL SEE BELOW Normal [facility] Comment on above: Result Comment: <100 mg/dl OPTIMAL 100 - 129 mg/dl NEAR OR ABOVE OPTIMAL 130 - 159 mg/dl BORDERLINE HIGH 160 - 189 mg/dl HIGH >190 mg/dl VERY HIGH Performed By: #### L IPID, URIC, CMP, TSH, T7 #### [facility] [address] [address] [address] Ankit Peters Triglyceride [Mass/Vol] 74 mg/dL Normal <=150 [facility] Comment on above: Performed By: #### L IPID, URIC, CMP, TSH, T7 #### [facility] [address] [address] [address] Ankit Peters VLDL CALC 14.8 mg/dL Normal [facility] Comment on above: Performed By: #### L IPID, URIC, CMP, TSH, T7 #### [facility] [address] [address] [address] Ankit Peters PROF 14(COMP METB)on 023 Albumin [Mass/Vol] 4.1 g/dL Normal 3.4-5.0 [facility] Comment on above: Performed By: #### L IPID, URIC, CMP, TSH, T7 #### [facility] [address] [place] [address] Dr. Ankit Peters Albumin/Globulin [Mass ratio] 1.2 {ratio} Normal [facility] Comment on above: Performed By: #### L IPID, URIC, CMP, TSH, T7 #### [facility] [address] [place] [address] Dr. Ankit Peters ALP [Catalytic activity/Vol] 65 U/L Normal 46-116 [facility] Comment on above: Performed By: #### L IPID, URIC, CMP, TSH, T7 #### [facility] [address] [place] [address] Dr. Ankit Peters ALT [Catalytic activity/Vol] 36 U/L Normal 16-63 [facility] Comment on above: Performed By: #### L IPID, URIC, CMP, TSH, T7 #### [facility] [address] [place] [address] Dr. Ankit Peters Anion gap [Moles/Vol] 9.1 mmol/L Normal [facility] Comment on above: Performed By: #### L IPID, URIC, CMP, TSH, T7 #### [facility] [address] [place] [address] Dr. Ankti Peters AST [Catalytic activity/Vol] 29 U/L Normal 15-37 [facility] Comment on above: Performed By: #### L IPID, URIC, CMP, TSH, T7 #### [facility] [address] [place] [address] Dr. Ankit Peters Bilirubin [Mass/Vol] 0.6 mg/dL Normal 0.2-1.0 [facility] Comment on above: Performed By: #### L IPID, URIC, CMP, TSH, T7 #### [facility] [address] [place] [address] Dr. Ankit Peters Calcium [Mass/Vol] 9.4 mg/dL Normal 8.5-10.1 [facility] Comment on above: Performed By: #### L IPID, URIC, CMP, TSH, T7 #### [facility] [address] [address] [address] Ankit Peters Chloride [Moles/Vol] 104 mmol/L Normal 98-107 [facility] Comment on above: Performed By: #### L IPID, URIC, CMP, TSH, T7 #### [facility] [address] [place] [address] Dr. Ankit Peters CO2 [Moles/Vol] 30.2 mmol/L Normal 21.0-32.0 [facility] Comment on above: Performed By: #### L IPID, URIC, CMP, TSH, T7 #### [facility] [address] [place] [address] Dr. Ankit Peters Creatinine [Mass/Vol] 0.90 mg/dL Normal 0.70-1.30 [facility] Comment on above: Performed By: #### L IPID, URIC, CMP, TSH, T7 #### [facility] [address] [place] [address] Dr. Ankit Peters EGFR-AF KYRGYZ >60 Normal >=60 [facility] Comment on above: Performed By: #### L IPID, URIC, CMP, TSH, T7 #### [facility] [address] [place] [address] Dr. Ankit Peters EGFR-NON AF KYRGYZ >60 Normal >=60 [facility] Comment on above: Performed By: #### L IPID, URIC, CMP, TSH, T7 #### [facility] [address] [place] [address] Dr. Ankit Peters Globulin (S) [Mass/Vol] 3.4 g/dL Normal [facility] Comment on above: Performed By: #### L IPID, URIC, CMP, TSH, T7 #### [facility] [address] [place] [address] Dr. Ankit Peters Glucose [Mass/Vol] 97 mg/dL Normal 74-106 [facility] Comment on above: Performed By: #### L IPID, URIC, CMP, TSH, T7 #### [facility] [address] [place] [address] Dr. Ankit Peters Potassium [Moles/Vol] 4.3 mmol/L Normal 3.5-5.1 [facility] Comment on above: Performed By: #### L IPID, URIC, CMP, TSH, T7 #### [facility] [address] [place] [address] Dr. Ankit Peters Protein [Mass/Vol] 7.5 g/dL Normal 6.4-8.2 [facility] Comment on above: Performed By: #### L IPID, URIC, CMP, TSH, T7 #### [facility] [address] [place] [address] Dr. Ankit Peters Sodium [Moles/Vol] 139 mmol/L Normal 136-145 [facility] Comment on above: Performed By: #### L IPID, URIC, CMP, TSH, T7 #### [facility] [address] [place] [address] Dr. Ankit Peters Urea nitrogen [Mass/Vol] 17.0 mg/dL Normal 7.0-18.0 [facility] Comment on above: Performed By: #### L IPID, URIC, CMP, TSH, T7 #### [facility] [address] [place] [address] Dr. Ankit Peters Urea nitrogen/Creatinine [Mass ratio] 18.9 mg/mg Normal [facility] Comment on above: Performed By: #### L IPID, URIC, CMP, TSH, T7 #### [facility] [address] [place] [address] Dr. Ankit Peters TSHon 11-14-2022 TSH 3.285 uIU/mL Normal 0.358-3.740 [facility] Comment on above: Performed By: #### L IPID, URIC, CMP, TSH, T7 #### [facility] [address] [address] [address] Ankit Peters URIC ACID SERUMon 11-14-2022 Urate [Mass/Vol] 4.8 mg/dL Normal 3.5-7.2 [facility] Comment on above: Performed By: #### L IPID, URIC, CMP, TSH, T7 #### [facility] [address] [place], [place] [address] Dr. Ankit Peters VITAMIN D 25 OHon 11-14-2022 VIT D 25-OH 41.4 ng/mL Normal [facility] Comment on above: Performed By: #### V ITAD, PSASC ####[facility] [address] [place], [place] [address]WeDr. Ankit Peters VIT D RANGES SEE BELOW Normal [facility] Comment on above: Result Comment: <20 ng/mL Vit D deficient 20 - <30 ng/mL Vit D insufficient 30 - 100 ng/mL Vit D sufficient >100 ng/mL Potential Toxicity Performed By: #### V ITAD, PSASC ####[facility] [address] [place], [place] [address]XrCarolyn Peters [facility]17 SARS-CoV-2 (COVID-19) RNA KANDICE+probe Ql (Unsp spec) Not detected Normal NOT DETECTED [facility] Comment on above: Result Comment: This test is not yet approved or cleared by the [place] FDA. When there are no FDA-approved or cleared tests available, and other criteria are met, FDA can make tests available under an emergency access mechanism called an Emergency Use Authorization (EUA). The EUA for this test is supported by the Senior Manufacturing Test Engineer of Health and Human Service's (HHS's) declaration [...] with SARS-CoV-2. Performed By: #### C VDTBH ####[facility] [address] [place], [place] [address]Dr. Ankit Peters INFLUENZA A AND B AGon 09-11 [facility] SEE BELOW Normal [facility] Comment on above: Result Comment: Nega tive for Flu A protein angiten. Infection due to Flu A cannot be ruled out. Flu A angiten in the sample may be below the detection limit of the test. Performed By: #### I NFLUAB ####[facility] [address] [place], [place] [address]Dr. Ankit Peters INFLUBNEG SEE BELOW Normal [facility] Comment on above: Result Comment: Nega tive for Flu B protein antigen. Infection due to Flu B cannot be ruled out. Flu B antigen in the sample may be below the detection limit of the test. Performed By: #### I NFLUAB ####[facility] [address] [place], [place] [address]Dr. Ankit [facility] INFLUENZA A AG Negative Normal NEGATIVE SEE COMMENT [facility] Comment on above: Performed By: #### I NFLUAB ####[facility] [address] [place], [place] [address]Dr. [facility] INFLUENZA B AG Negative Normal NEGATIVE SEE COMMENT [facility] Comment on above: Performed By: #### I NFLUAB ####[facility] [address] [place], [place] [address]Dr. Ankit [facility] INTERNAL CONTROLS Within Normal Limits Normal Within Normal Limits [facility] Comment on above: Performed By: #### I NFLUAB ####[facility] [address] [place], [place] [address]Dr. Ankit Peters Office Visiton 07-05-2022 Follow-up visit [id number] Levon Bond 1950 M Date Provider Department Center 07/05/2022 [id number] NARAYANAN ORTHO MPORTHO No family history on file Level of Service:60600 HI OFFICE/OUTPATIENT NEW MODERATE MDM 45-59 MINUTES Reason for Visit and Comments: Pain [136] Pain [136] Normal [facility] Basic Metabolic Panelon Anion gap [Moles/Vol] 7 mmol/L Low 9 - 17 mmol/L [place] Bun/Cre Ratio 17 [place] Calcium [Mass/Vol] 9.1 mg/dL 8.6 - 10. 4 mg/dL [place] Chloride [Moles/Vol] 99 mmol/L 98 - 107 mmol/L [place] CO2 [Moles/Vol] 29 mmol/L 20 - 31 mmol/L [place] Creatinine [Mass/Vol] 0.82 mg/dL 0.7 - 1.2 mg/dL [place] GFR >60 >60 mL/min [place] GFR Non- >60 >60 mL/min [place] GFR/1.73 sq M predicted among non-blacks MDRD (S/P/Bld) [Vol rate/Area] [place] Comment on above: Average GFR for 70 o r more years old: 75 mL/min/1.73sq m Chronic Kidney Disease: <60 mL/min/1.73sq m Kidney failure: <15 mL/min/1.73sq m eGFR calculated using average adult body mass. Additional eGFR calculator available at: http://www.[employer]/multiple_crcl_2012.htm GFR/1.73 sq M predicted among non-blacks MDRD (S/P/Bld) [Vol rate/Area] NOT REPORTED [place] Glucose [Mass/Vol] 112 mg/dL High 70 - 99 mg/dL [place] Interpretation and review of laboratory results Abnormal [place] Potassium [Moles/Vol] 4.0 mmol/L 3.7 - 5.3 mmol/L [place] Sodium [Moles/Vol] 135 mmol/L 135 - 144 mmol/L [place] Urea nitrogen [Mass/Vol] 14 mg/dL 8 - 23 mg/dL [place] Basic Metabolic Profon 09-22 (cont.) Normal [facility] Comment on above: Result Comment: Aver age GFR for 70 or more years old: 75 mL/min/1.73sq m Chronic Kidney Disease: <60 mL/min/1.73sq m Kidney failure: <15 mL/min/1.73sq m eGFR calculated using average adult body mass. Additional eGFR calculator available at: http://www.[employer]/multiple_crcl_2012.htm Performed By: #### B HARI, CDP #### [facility] [address] [place] [address] Machinist Mate: Jeremías Donald MD Anion gap [Moles/Vol] 7 mmol/L Low 9-17 [facility] Comment on above: Performed By: #### B HARI, CDP #### [facility] [address] [place] [address] Machinist Mate: Jeremías Donald MD BUN/CRE Ratio 17 Normal 9-20 [facility] Comment on above: Performed By: #### B HARI, CDP #### [facility] [address] [place] [address] Machinist Mate: Jeremías Donald MD Calcium [Mass/Vol] 9.1 mg/dL Normal 8.6-10.4 [facility] Comment on above: Performed By: #### B HARI, CDP #### [facility] [address] [place] [address] Machinist Mate: Jeremías Donald MD Chloride [Moles/Vol] 99 mmol/L Normal 98-107 [facility] Comment on above: Performed By: #### B HARI, CDP #### [facility] [address] [place] [address] Machinist Mate: Jeremías Donald MD CO2 [Moles/Vol] 29 mmol/L Normal 20-31 [facility] Comment on above: Performed By: #### B MP, CDP #### [facility] [address] [place] [address] Machinist Mate: Jeremías Donald MD Creatinine [Mass/Vol] 0.82 mg/dL Normal 0.70-1.20 [facility] Comment on above: Performed By: #### B MP, CDP #### [facility] [address] [place] [address] Machinist Mate: Jeremías Donald MD GFR, Amer >60 Normal >60 [facility] Comment on above: Performed By: #### B MP, CDP #### [facility] [address] [place] [address] Machinist Mate: Jeremías Donald MD GFR,non Amer >60 Normal >60 [facility] Comment on above: Performed By: #### B MP, CDP #### [facility] [address] [facility] [place] [address] Machinist Mate: Jeremías Donald MD Glucose [Mass/Vol] 112 mg/dL High 70-99 [facility] Comment on above: Performed By: #### B MP, CDP #### [facility] [address] [facility] [place] [address] Machinist Mate: Jeremías Donald MD Potassium [Moles/Vol] 4.0 mmol/L Normal 3.7-5.3 [facility] Comment on above: Performed By: #### B MP, CDP #### [facility] [address] [place] [address] Machinist Mate: Jeremías Donald MD Sodium [Moles/Vol] 135 mmol/L Normal 135-144 [facility] Comment on above: Performed By: #### B MP, CDP #### [facility] [address] [facility] [place] [address] Machinist Mate: Jeremías Donald MD Urea nitrogen [Mass/Vol] 14 mg/dL Normal 8-23 [facility] Comment on above: Performed By: #### B MP, CDP #### [facility] [address] [facility] [place] [address] Machinist Mate: Jeremías Donald MD Staging: NOT REPORTED Normal [facility] Comment on above: Performed By: #### B MP, CDP #### [facility] [address] [facility] [place] [address] Machinist Mate: Jeremías Donald MD CBC Auto Differentialon 0 Basophils (Bld) [#/Vol] 0.03 10*3/uL [place] Basophils/100 WBC (Bld) 0 % 0 - 2 % [place] Differential Type NOT REPORTED [place] Eosinophils (Bld) [#/Vol] 0.10 10*3/uL [place] Eosinophils/100 WBC (Bld) 1 % 1 - 4 % [place] Erythrocyte distribution width (RBC) [Ratio] 12.0 % 11.8 - 14.4 % [place] Hematocrit (Bld) [Volume fraction] 39.6 % Low 40.7 - 50.3 % [place] Hemoglobin (Bld) [Mass/Vol] 12.8 g/dL Low 13 - 17 g/dL [place] Immature granulocytes (Bld) [#/Vol] 0.03 10*3/uL [place] Immature granulocytes (Bld) [#/Vol] 0 % 0 [place] Interpretation and review of laboratory results Abnormal [place] Lymphocytes (Bld) [#/Vol] 0.92 10*3/uL Low [place] Lymphocytes/100 WBC (Bld) 8 % Low 24 - 43 % [place] MCH (RBC) [Entitic mass] 32.1 pg 25.2 - 33.5 pg [place] MCHC (RBC) [Mass/Vol] 32.3 g/dL 28.4 - 34.8 g/dL [place] MCV (RBC) [Entitic vol] 99.2 fL 82.6 - 102.9 fL [place] Monocytes (Bld) [#/Vol] 1.26 10*3/uL [place] Monocytes/100 WBC (Bld) 11 % 3 - 12 % [place] Platelet mean volume (Bld) [Entitic vol] 10.0 fL 8.1 - 13.5 fL [place] Platelets (Bld) [#/Vol] NOT REPORTED [place] Platelets (Bld) [#/Vol] 203 10*3/uL [place] RBC (Bld) [#/Vol] 3.99 10*6/uL Low 4.21 - 5.7 7 m/uL [place] RBC morphology finding Nom (Bld) NOT REPORTED [place] Segmented neutrophils/100 WBC (Bld) 80 % High 36 - 65 % [place] Segs Absolute 8.94 [place] WBC (Bld) [#/Vol] 11.3 10*3/uL [place] WBC (Bld) [#/Vol] 0.0 10*3/uL 0.0 per 100 WBC [place] WBC Morphology NOT REPORTED [place], [place] CBC with Diffon 09-22-2020 Abs. Basophil 0.03 k/uL Normal 0.00-0.20 [facility] Comment on above: Performed By: #### B HARI CDP #### [facility] [address] [place] [address] Machinist Mate: Jeremías Donald MD Abs.Imm.Granulocyte 0.03 k/uL Normal 0.00-0.30 [facility] Comment on above: Performed By: #### B HARI, CDP #### [facility] [place] [address] Machinist Mate: Jeremías Donald MD Abs.Neutrophil (Seg) 8.94 k/uL High 1.50-8.10 [facility] Comment on above: Performed By: #### B MP, CDP #### [facility] [address] [place] [address]. [place] [address] Machinist Mate: Jeremías Donald MD Basophils/100 WBC (Bld) 0 % Normal 0-2 [facility] Comment on above: Performed By: #### B MP, CDP #### [facility] [address] [place] [address] Machinist Mate: Jeremías Donald MD Eosinophils (Bld) [#/Vol] 0.10 10*3/uL Normal 0.00-0.44 [facility] Comment on above: Performed By: #### B MP, CDP #### [facility] [address] [place] [address] Machinist Mate: Jeremías Donald MD Eosinophils/100 WBC (Bld) 1 % Normal 1-4 [facility] Comment on above: Performed By: #### B MP, CDP #### [facility] [address] [place] [address]. [place] [address] Machinist Mate: Jeremías Donald MD Erythrocyte distribution width (RBC) [Ratio] 12.0 % Normal 11.8-14.4 [facility] Comment on above: Performed By: #### B MP, CDP #### [facility] [address] [place] [address] Machinist Mate: Jeremías Donald MD Hematocrit (Bld) [Volume fraction] 39.6 % Low 40.7-50.3 [facility] Comment on above: Performed By: #### B MP, CDP #### [facility] [address] [facility] [place] [address] Machinist Mate: Jeremías Donald MD Hemoglobin (Bld) [Mass/Vol] 12.8 g/dL Low 13.0-17.0 [facility] Comment on above: Performed By: #### B MP, CDP #### [facility] [address] [place] [address]. [place] [address] Machinist Mate: Jeremías Donald MD Immature granulocytes (Bld) [#/Vol] 0 % Normal 0 [facility] Comment on above: Performed By: #### B HARI, CDP #### [facility] [address] [place] [address]. [place] [address] Machinist Mate: Jeremías Donald MD Lymphocytes (Bld) [#/Vol] 0.92 10*3/uL Low 1.10-3.70 [facility] Comment on above: Performed By: #### B HARI, CDP #### [facility] [address] [place] [address]. [place] [address] Machinist Mate: Jeremías Donald MD Lymphocytes/100 WBC (Bld) 8 % Low 24-43 [facility] Comment on above: Performed By: #### B HARI, CDP #### [facility] [address] [place] [address]. [place] [address] Machinist Mate: Jeremías Donald MD MCH (RBC) [Entitic mass] 32.1 pg Normal 25.2-33.5 [facility] Comment on above: Performed By: #### B MP, CDP #### [facility] [address] [place] [address]. [place] [address] Machinist Mate: Jeremías Donald MD MCHC (RBC) [Mass/Vol] 32.3 g/dL Normal 28.4-34.8 [facility] Comment on above: Performed By: #### B MP, CDP #### [facility] [address] [facility] [place] [address] Machinist Mate: Jeremías Donald MD MCV (RBC) [Entitic vol] 99.2 fL Normal 82.6-102.9 [facility] Comment on above: Performed By: #### B MP, CDP #### [facility] [place] [address] Machinist Mate: Jeremías Donald MD Monocytes (Bld) [#/Vol] 1.26 10*3/uL High 0.10-1.20 [facility] Comment on above: Performed By: #### B HARI, CDP #### [facility] [address] [place] [address]. [place] [address] Machinist Mate: Jeremías Donald MD Monocytes/100 WBC (Bld) 11 % Normal 3-12 [facility] Comment on above: Performed By: #### B HARI, CDP #### [facility] [address] [place] [address]. [place] [address] Machinist Mate: Jeremías Donald MD Neutrophil (Seg) 80 % High 36-65 [facility] Comment on above: Performed By: #### B HARI, CDP #### [facility] [address] [place] [address]. [place] [address] Machinist Mate: Jeremías Donald MD NRBC Automated 0.0 per 100 WBC Normal 0.0 [facility] Comment on above: Performed By: #### B HARI, CDP #### [facility] [address] [place] [address]. [place] [address] Machinist Mate: Jeremías Donald MD Platelet mean volume (Bld) [Entitic vol] 10.0 fL Normal 8.1-13.5 [facility] Comment on above: Performed By: #### B MP, CDP #### [facility] [place] [address] Machinist Mate: Jeremías Donald MD Platelets (Bld) [#/Vol] 203 10*3/uL Normal 138-453 [facility] Comment on above: Performed By: #### B MP, CDP #### [facility] [address] [place] [address] Machinist Mate: Jeremías Donald MD RBC (Bld) [#/Vol] 3.99 10*6/uL Low 4.21-5.77 [facility] Comment on above: Performed By: #### B MP, CDP #### [facility] [address] [place] [address]. [place] [address] Machinist Mate: Jeremías Donald MD WBC (Bld) [#/Vol] 11.3 10*3/uL Normal 3.5-11.3 [facility] Comment on above: Performed By: #### B MP, CDP #### [facility] [address] [place] [address]. [place] [address] Machinist Mate: Jeremías Donald MD Auto Diff Performed NOT REPORTED Normal [facility] Comment on above: Performed By: #### B MP, CDP #### [facility] [address] [place] [address] Machinist Mate: Jeremías Donald MD Platelets (Bld) [#/Vol] NOT REPORTED Normal [facility] Comment on above: Performed By: #### B MP, CDP #### [facility] [address] [place] [address]. [place] [address] Machinist Mate: Jeremías Donald MD RBC morphology finding Nom (Bld) NOT REPORTED Normal [facility] Comment on above: Performed By: #### B MP, CDP #### [facility] [address] [facility] [place] [address] Machinist Mate: Jeremías Donald MD WBC Morphology NOT REPORTED Normal [facility] Comment on above: Performed By: #### B MP, CDP #### [facility] [address] [facility] [place] [address] Machinist Mate: Jeremías Donald MD COVID-19on 09-15-2020 SARS-CoV-2 Not Detected Not Detected [place], [place] Comment on above: The specimen is NEGATIVE for SARS-CoV-2, the novel coronavirus associated with COVID-19. A negative result does not rule out COVID-19. This test has been authorized by the FDA under an Emergency Use Authorization (EUA) for use by authorized laboratories. [employer] SARS-CoV-2 Reagents for [employer] System are designed to detect the virus that causes COVID-19 in patients with signs and symptoms of infection who are suspected of COVID-19. An individual without symptoms of COVID-19 and who is not shedding SARS-CoV-2 virus would expect to have a negative (not detected) result in this assay. Fact sheet for Healthcare Providers: https://www.fda.gov/media/840721/download Fact sheet for Patients: https://www.fda.gov/media/857376/download METHODOLOGY: RT-PCR SARS-CoV-2 [place], [place] SARS-CoV-2, Rapid [place], [place] Source .NASOPHARYNGEAL SWAB [place] [id number] 09-15-2020 SARS-CoV-2 Not Detected [facility] Comment on above: Result Comment: The specimen is NEGATIVE for SARS-CoV-2, the novel coronavirus associated with COVID-19. A negative result does not rule out COVID-19. This test has been authorized by the FDA under an Emergency Use Authorization (EUA) for use by authorized laboratories. [employer] SARS-CoV-2 Reagents for [employer] System are designed to detect the virus that causes COVID-19 in patients with signs and symptoms of infection who are suspected of COVID-19. An individual without symptoms of COVID-19 and who is not shedding SARS-CoV-2 virus would expect to have a negative (not detected) result in this assay. Fact sheet for Healthcare Providers: https://www.fda.gov/media/523665/download Fact sheet for Patients: https://www.fda.gov/media/488087/download METHODOLOGY: RT-PCR Performed By: #### C OVID #### [facility] [address] [place] [address] Machinist Mate: Jeremías Donald MD [address] [address] Machinist Mate: Rah Mccollum MD SARS-CoV-[address] [facility] Comment on above: Performed By: #### C OVID #### [facility] [address] [place] [address] Machinist Mate: Jeremías Donald MD [address] [address] Machinist Mate: Rah Mccollum MD SARS-CoV-2,Rapid [facility] Comment on above: Performed By: #### C OVID #### [facility] [address] [place] [address] Machinist Mate: Jeremías Donald MD [facility] [employer] [address] [place] [address] Machinist Mate: Rah Mccollum MD [id number] 09-14-2020 SARS-CoV-2 Source .NASOPHARYNGEAL SWAB [facility] Comment on above: Performed By: #### C OVID #### [facility] [address] [place] [address] Machinist Mate: Jeremías Donald MD [facility] [employer] [address] [place] [address] Machinist Mate: Rah Mccollum MD EKG 12 Leadon 09-02-2020 Atrial Rate 61 BPM [place], [place] P [place] 66 degrees [place] P-R Interval 168 ms [facility], [place] Q-T Interval 406 ms [place] QRS Duration 98 ms [place] QTc Calculation (Bazett) 408 ms [place], [place] R [place] 27 degrees [facility], [place] T [place] 51 degrees [facility], [place] Ventricular Rate 61 BPM [place] Marcell, Mhpn Incoming Ekg Results From [facility] - 09/02/2020 8:25 AM EST Normal sinus rhythm Possible Anterior infarct , age undetermined Abnormal ECG When compared with ECG of 02-APR-2018 10:00, Minimal criteria for Inferior infarct are no longer Present [place] Normal sinus rhythm Possible Anterior infarct , age undetermined Abnormal ECG When compared with ECG of 02-APR-2018 10:00, Minimal criteria for Inferior infarct are no longer Present [place] MRSA DNA Probe, Nasalon - MRSA, DNA, Nasal NEGATIVE: MRSA DNA not detected by nucleic acid amplification. NEGATIVE: MRSA DNA not detected by nucleic acid amplificati [place] Comment on above: Results should be used as an adjunct to nosocomial control efforts to identify patients needing enhanced precautions. The test is not intended to identify patients with staphylococcal infections. Results should not be used to guide or monitor treatment for MRSA infections. Specimen Description .NASAL SWAB [place] MRSA, DNA, Nasalon 0 MRSA, DNA, Nasal NEGATIVE: MRSA DNA not detected by nucleic acid amplification. [facility] Comment on above: Result Comment: Results should be used as an adjunct to nosocomial control efforts to identify patients needing enhanced precautions. The test is not intended to identify patients with staphylococcal infections. Results should not be used to guide or monitor treatment for MRSA infections. Performed By: #### M RSANO #### [facility] [address] [place] [address] Machinist Mate: Jeremías Donald MD [facility] [employer] [facility] [place], [place] [id number] Machinist Mate: Rah Mccollum MD BUN & Creatinineon 0 Creatinine [Mass/Vol] 1.06 mg/dL 0.7 - 1.2 mg/dL [place] GFR >60 >60 mL/min [place] GFR Non- >60 >60 mL/min [place] GFR/1.73 sq M predicted among non-blacks MDRD (S/P/Bld) [Vol rate/Area] NOT REPORTED [place] GFR/1.73 sq M predicted among non-blacks MDRD (S/P/Bld) [Vol rate/Area] [place] Comment on above: Average GFR for 70 o r more years old: 75 mL/min/1.73sq m Chronic Kidney Disease: <60 mL/min/1.73sq m Kidney failure: <15 mL/min/1.73sq m eGFR calculated using average adult body mass. Additional eGFR calculator available at: http://www.[employer]/multiple_crcl_2012.htm Urea nitrogen [Mass/Vol] 23 mg/dL 8 - 23 mg/dL [place] BUN + Creatinineon 0 (cont.) Normal [facility] Comment on above: Result Comment: Aver age GFR for 70 or more years old: 75 mL/min/1.73sq m Chronic Kidney Disease: <60 mL/min/1.73sq m Kidney failure: <15 mL/min/1.73sq m eGFR calculated using average adult body mass. Additional eGFR calculator available at: http://www.[employer]/multiple_crcl_2012.htm Performed By: #### C DP, BUNCRT, LYTE #### [facility] [address] [place], [place] [id number] Machinist Mate: Jeremías Donald MD Creatinine [Mass/Vol] 1.06 mg/dL Normal 0.70-1.20 [facility] Comment on above: Performed By: #### C DP, BUNCRT, LYTE #### [facility] [address] [place] [address] Machinist Mate: Jeremías Donald MD GFR, Amer >60 Normal >60 [facility] Comment on above: Performed By: #### C DP, BUNCRT, LYTE #### [facility] [address] [place] [address] Machinist Mate: Jeremías Donald MD GFR,non Amer >60 Normal >60 [facility] Comment on above: Performed By: #### C DP, BUNCRT, LYTE #### [facility] [address] [place] [address] Machinist Mate: Jeremías Donald MD Urea nitrogen [Mass/Vol] 23 mg/dL Normal 8-23 [facility] Comment on above: Performed By: #### C DP, BUNCRT, LYTE #### [facility] [address] [place] [address] Machinist Mate: Jeremías Donald MD Staging: NOT REPORTED Normal [facility] Comment on above: Performed By: #### C DP, BUNCRT, LYTE #### [facility] [address] [place] [address] Machinist Mate: Jeremías Donald MD CBC Auto Differentialon 08-16 Basophils (Bld) [#/Vol] 0.04 10*3/uL [place] Basophils/100 WBC (Bld) 1 % 0 - 2 % [place] Differential Type NOT REPORTED [place] Eosinophils (Bld) [#/Vol] 0.14 10*3/uL [place] Eosinophils/100 WBC (Bld) 2 % 1 - 4 % [place] Erythrocyte distribution width (RBC) [Ratio] 12.3 % 11.8 - 14.4 % [place] Hematocrit (Bld) [Volume fraction] 46.2 % 40.7 - 50.3 % [place] Hemoglobin (Bld) [Mass/Vol] 14.7 g/dL 13 - 17 g/dL [place] Immature granulocytes (Bld) [#/Vol] 0.01 10*3/uL [place] Immature granulocytes (Bld) [#/Vol] 0 % 0 [place] Interpretation and review of laboratory results Abnormal [place] Lymphocytes (Bld) [#/Vol] 1.43 10*3/uL [place] Lymphocytes/100 WBC (Bld) 19 % Low 24 - 43 % [place] MCH (RBC) [Entitic mass] 31.8 pg 25.2 - 33.5 pg [place] MCHC (RBC) [Mass/Vol] 31.8 g/dL 28 - 38 g/dL [place] MCV (RBC) [Entitic vol] 100.0 fL 82.6 - 102.9 fL [place] Monocytes (Bld) [#/Vol] 0.53 10*3/uL [place] Monocytes/100 WBC (Bld) 7 % 3 - 12 % [place] Platelet mean volume (Bld) [Entitic vol] 9.5 fL 8.1 - 13.5 fL [place] Platelets (Bld) [#/Vol] 233 10*3/uL [place] Platelets (Bld) [#/Vol] NOT REPORTED [place] RBC (Bld) [#/Vol] 4.62 10*6/uL 4.21 - 5.7 7 m/uL [place] RBC morphology finding Nom (Bld) NOT REPORTED [place] Segmented neutrophils/100 WBC (Bld) 71 % High 36 - 65 % [place] Segs Absolute 5.25 [place] WBC (Bld) [#/Vol] 7.4 10*3/uL [place] WBC (Bld) [#/Vol] NOT REPORTED 0.0 per 100 WBC [place] WBC Morphology NOT REPORTED [place] CBC with Diffon 09-01-2020 Abs. Basophil 0.04 k/uL Normal 0.00-0.20 [facility] Comment on above: Performed By: #### C DP BUNCRT, LYTE #### [facility] [address] [place] [address] Machinist Mate: Jeremías Donald MD Abs.Imm.Granulocyte 0.01 k/uL Normal 0.00-0.30 [facility] Comment on above: Performed By: #### C DP BUNCRT, LYTE #### [facility] [address] [place] [address] Machinist Mate: Jeremías Donald MD Abs.Neutrophil (Seg) 5.25 k/uL Normal 1.50-8.10 [facility] Comment on above: Performed By: #### C MP BUNCRT, LYTE #### [facility] [address] [place] [address] Machinist Mate: Jeremías Donald MD Basophils/100 WBC (Bld) 1 % Normal 0-2 [facility] Comment on above: Performed By: #### C MP BUNCRT, LYTE #### [facility] [address] [place] [address] Machinist Mate: Jeremías Donald MD Eosinophils (Bld) [#/Vol] 0.14 10*3/uL Normal 0.00-0.44 [facility] Comment on above: Performed By: #### C MP BUNCRT, LYTE #### [facility] [address] [place] [address] Machinist Mate: Jeremías Donald MD Eosinophils/100 WBC (Bld) 2 % Normal 1-4 [facility] Comment on above: Performed By: #### C MP BUNCRT, LYTE #### [facility] [address] [facility] [place] [address] Machinist Mate: Jeremías Donald MD Erythrocyte distribution width (RBC) [Ratio] 12.3 % Normal 11.8-14.4 [facility] Comment on above: Performed By: #### C DP, BUNCRT, LYTE #### [facility] [address] [place] [address]. [place] [address] Machinist Mate: Jeremías Donald MD Hematocrit (Bld) [Volume fraction] 46.2 % Normal 40.7-50.3 [facility] Comment on above: Performed By: #### C DP, BUNCRT, LYTE #### [facility] [address] [place] [address]. [place] [address] Machinist Mate: Jeremías Donald MD Hemoglobin (Bld) [Mass/Vol] 14.7 g/dL Normal 13.0-17.0 [facility] Comment on above: Performed By: #### C DP, BUNCRT, LYTE #### [facility] [address] [place] [address]. [place] [address] Machinist Mate: Jeremías Donald MD Immature granulocytes (Bld) [#/Vol] 0 % Normal 0 [facility] Comment on above: Performed By: #### C DP, BUNCRT, LYTE #### [facility] [address] [place] [address]. [place] [address] Machinist Mate: Jeremías Donald MD Lymphocytes (Bld) [#/Vol] 1.43 10*3/uL Normal 1.10-3.70 [facility] Comment on above: Performed By: #### C DP, BUNCRT, LYTE #### [facility] [address] [place], [place] [address]ia [facility] [place] [address] Machinist Mate: Jeremías Donald MD Lymphocytes/100 WBC (Bld) 19 % Low 24-43 [facility] Comment on above: Performed By: #### C DP BUNCRT, LYTE #### [facility] [place] [address] Machinist Mate: Jeremías Donald MD MCH (RBC) [Entitic mass] 31.8 pg Normal 25.2-33.5 [facility] Comment on above: Performed By: #### C DP, BUNCRT, LYTE #### [facility] [address] [place] [address]. [place] [address] Machinist Mate: Jeremías Donald MD MCHC (RBC) [Mass/Vol] 31.8 g/dL Normal 28.0-38.0 [facility] Comment on above: Performed By: #### C DP BUNCRT, LYTE #### [facility] [address] [place] [address] Machinist Mate: Jeremías Donald MD MCV (RBC) [Entitic vol] 100.0 fL Normal 82.6-102.9 [facility] Comment on above: Performed By: #### C DP BUNCRT, LYTE #### [facility] [address] [place] [address]. [place] [address] Machinist Mate: Jeremías Donald MD Monocytes (Bld) [#/Vol] 0.53 10*3/uL Normal 0.10-1.20 [facility] Comment on above: Performed By: #### C DP BUNCRT, LYTE #### [facility] [address] [place] [address]. [place] [address] Machinist Mate: Jeremías Donald MD Monocytes/100 WBC (Bld) 7 % Normal 3-12 [facility] Comment on above: Performed By: #### C DP, BUNCRT, LYTE #### [facility] [address] [place] [address] Machinist Mate: Jeremías Donald MD Neutrophil (Seg) 71 % High 36-65 [facility] Comment on above: Performed By: #### C DP, BUNCRT, LYTE #### [facility] [address] [place] [address] Machinist Mate: Jeremías Donald MD Platelet mean volume (Bld) [Entitic vol] 9.5 fL Normal 8.1-13.5 [facility] Comment on above: Performed By: #### C DP, BUNCRT, LYTE #### [facility] [place] [address] Machinist Mate: Jeremías Donald MD Platelets (Bld) [#/Vol] 233 10*3/uL Normal 138-453 [facility] Comment on above: Performed By: #### C DP, BUNCRT, LYTE #### [facility] [address] [place] [address] Machinist Mate: Jeermías Donald MD RBC (Bld) [#/Vol] 4.62 10*6/uL Normal 4.21-5.77 [facility] Comment on above: Performed By: #### C DP, BUNCRT, LYTE #### [facility] [address] [facility] [place] [address] Machinist Mate: Jeremías Donald MD WBC (Bld) [#/Vol] 7.4 10*3/uL Normal 3.5-11.3 [facility] Comment on above: Performed By: #### C DP, BUNCRT, LYTE #### [facility] [address] [place] [address] Machinist Mate: Jeremías Donald MD Auto Diff Performed NOT REPORTED Normal [facility] Comment on above: Performed By: #### C DP, BUNCRT, LYTE #### [facility] [address] [facility] [place] [address] Machinist Mate: Jeremías Donald MD NRBC Automated NOT REPORTED Normal 0.0 [facility] Comment on above: Performed By: #### C DP, BUNCRT, LYTE #### [facility] [address] [place] [address]. [place] [address] Machinist Mate: Jeremías Donald MD Platelets (Bld) [#/Vol] NOT REPORTED Normal [facility] Comment on above: Performed By: #### C DP, BUNCRT, LYTE #### [facility] [address] [place] [address]. [place] [address] Machinist Mate: Jeremías Donald MD RBC morphology finding Nom (Bld) NOT REPORTED Normal [facility] Comment on above: Performed By: #### C DP, BUNCRT, LYTE #### [facility] [address] [place] [address]. [place] [address] Machinist Mate: Jeremías Donald MD WBC Morphology NOT REPORTED Normal [facility] Comment on above: Performed By: #### C DP, BUNCRT, LYTE #### [facility] [address] [place] [address]. [place] [address] Machinist Mate: Jeremías Donald MD Electrolyte Panelon 09-01-20 Anion gap [Moles/Vol] 10 mmol/L 9 - 17 mmol/L [facility] , [place] Chloride [Moles/Vol] 102 mmol/L 98 - 107 mmol/L [place] CO2 [Moles/Vol] 27 mmol/L 20 - 31 mmol/L [place] Potassium [Moles/Vol] 4.2 mmol/L 3.7 - 5.3 mmol/L [place] Sodium [Moles/Vol] 139 mmol/L 135 - 144 mmol/L [facility], [place] Electrolyteson 09-01-2020 Anion gap [Moles/Vol] 10 mmol/L Normal 9-17 [facility] Comment on above: Performed By: #### C DP BUNCRT, LYTE #### [facility] [address] [place] [address] Machinist Mate: Jeremías Donald MD Chloride [Moles/Vol] 102 mmol/L Normal 98-107 [facility] Comment on above: Performed By: #### C DP BUNCRT, LYTE #### [facility] [address] [place] [address] Machinist Mate: Jeremías Donald MD CO2 [Moles/Vol] 27 mmol/L Normal 20-31 [facility] Comment on above: Performed By: #### C DP BUNCRT, LYTE #### [facility] [address] [place] [address] Machinist Mate: Jeremías Donald MD Potassium [Moles/Vol] 4.2 mmol/L Normal 3.7-5.3 [facility] Comment on above: Performed By: #### C DP BUNCRT, LYTE #### [facility] [address] [place] [address] Machinist Mate: Jeremías Donald MD Sodium [Moles/Vol] 139 mmol/L Normal 135-144 [facility] Comment on above: Performed By: #### C DP BUNCRT, LYTE #### [facility] [address] [place] [address] Machinist Mate: Jeremías Donald MD MRSA, DNA, Nasalon 0 Specimen Description .NASAL SWAB Normal [facility] Comment on above: Performed By: #### M RSANO #### [facility] [address], [place] [id number] Machinist Mate: Jeremías Donald MD [facility] [employer] [facility] [place], [place] [id number] Machinist Mate: Rah Mccollum MD TYPE AND SCREENon 09-01-2020 ABO/Rh Positive [facility], [place] Arm Band Number [id number] [facility] [place], [place] Expiration Date 09/23/2020,2359 [facility] [place], [place] Type + Screenon 09-01-2020 Type + Screen Sample Expiration 09/23/2020,2359 Arm Band Number [id number] ABO/Rh(D) O POSITIVE Antibody Screen NEGATIVE Normal [facility] Comment on above: Performed By: #### T YS #### [facility] [address], [place] [id number] Machinist Mate: Jeremías Donald MD Vital Signs Date Time Vital Sign Value Performing Clinician Facility 11-08-2023 09:07-0500 Body height 172.7 cm [facility] 1 [facility] 11-08-2023 09:07-0500 Body mass index (BMI) [Ratio] 23.42 kg/m2 Pm 1 [facility] 11-08-2023 09:07-0500 Body weight 69.85 kg P[facility] 1 [facility] 10-23-2023 08:08-0500 Body height 172.7 cm Jr. Stepanic DO Work Phone: [facility] 10-23-2023 08:08-0500 Body mass index (BMI) [Ratio] 23.11 kg/m2 Jr. Stepanic DO Work Phone: [facility] 10-23-2023 08:08-0500 Body weight 68.95 kg Jr. Stepanic DO Work Phone: [facility] 09-22-2020 11:33-0500 Body Temperature 98.8 [degF] [facility] [place] 09-22-2020 11:33-0500 BP Diastolic 63 mm[Hg] [facility] [place] 09-22-2020 11:33-0500 BP Systolic 129 mm[Hg] Kareem Diaz [facility] , [place] 09-22-2020 11:33-0500 Pulse (Heart Rate) 65 /min [facility] [place] 09-22-2020 11:33-0500 Pulse Oximetry 97 % Kareem Diaz [facility] , [place] 09-22-2020 11:33-0500 Respiratory Rate 17 /min Kareem [facility] , [place] 09-20-2020 06:08-0500 BMI (Body Mass Index) 23.63 kg/m2 Kareem Diaz [facility], [place] 09-20-2020 06:08-0500 Body weight 70.5 kg Kareem Diaz [facility] , [place] 09-20-2020 06:08-0500 Height 172.7 cm Kareem Diaz [facility] , [place] 09-01-2020 11:37-0500 BMI (Body Mass Index) 23.63 kg/m2 [address], [place] 09-01-2020 11:37-0500 Body Temperature 97 [degF] [address] 09-01-2020 11:37-0500 Body weight 70.[address] , [place] 09-01-2020 11:37-0500 BP Diastolic 65 mm[Hg] [address] 09-01-2020 11:37-0500 BP Systolic 135 mm[Hg] [address] , [place] 09-01-2020 11:37-0500 Height 172.[address] 09-01-2020 11:37-0500 Pulse (Heart Rate) 62 /min [address] 09-01-2020 11:37-0500 Pulse Oximetry 97 % [address] 09-01-2020 11:37-0500 Respiratory Rate 16 /min [address] [place] Encounters Encounter Date Encounter Type Care Provider Facility Start: 01-01-2024 End: 01-01-2024 ambulatory BARBY GRIGGS Not Available Start: 12-30-2023 End: 12-30-2023 ambulatory LUKE GUZMAN Not Available Start: 12-27-2023 End: 12-27-2023 ambulatory BARBY J INDU Not Available Start: 12-26-2023 End: 12-27-2023 ambulatory SANDRA Jamie BURR Not Available Start: 12-26-2023 End: 12-26-2023 [...] Start: 11-22-2023 End: 11-22-2023 ambulatory CHON WILKINSON [facility] Start: 11-19-2023 End: 11-22-2023 ambulatory BENJAMIN Natalia [facility] Start: 11-19-2023 End: 11-21-2023 Evaluation and management of inpatient BENJAMIN Natalia [facility] Start: 11-11-2023 End: 11-11-2023 ambulatory MC OSMAN Not Available Start: 11-08-2023 End: 11-09-2023 ambulatory JUAN CARLOS ALAS [facility] Start: 11-08-2023 Encounter for other preprocedural examination [facility]: 11-08-2023 End: 11-08-2023 Patient encounter procedure Pm Pre-Admission Testing 1 [facility] - Pre Admit Comment on above: Coronary artery dise ase involving [place] coronary artery of [place] heart without angina pectoris (Primary Dx); Preop examination; Urinary frequency; Hypertension, unspecified type Start: 11-08-2023 End: 11-08-2023 Preprocedural examination done [facility] 1 [facility] Hop[facility] Start: 10-23-2023 End: 10-24-2023 ambulatory JUAN CARLOS HANSON BISHOP Not Available Start: 10-23-2023 End: 10-23-2023 Follow-up encounter Jr. Juan Carlos Fisher Bishop DO Work Phone: [facility] Comment on [...] . Facility:H1 Start: 07-05-2022 End: 07-06-2022 ambulatory [facility] Start: 09-20-2020 End: 09-22-2020 Evaluation and management of inpatient [facility] Start: 09-20-2020 End: 09-22-2020 Evaluation and management of inpatient Kareem Diaz Work Phone: [facility] Comment on above: Acute postoperative pain (Primary Dx); Localized osteoarthritis of right knee Start: 09-14-2020 End: 09-15-2020 Patient encounter procedure [facility] Start: 09-14-2020 End: 09-14-2020 Subsequent hospital visit by physician Sarah Beth Ennis Screening Schedule [facility] Covid Screening Comment on above: Preop testing (Prima ry Dx) Start: 09-01-2020 End: 09-06-2020 Patient encounter procedure CHARITY YIN [facility] Start: 09-01-2020 End: 09-05-2020 Subsequent hospital visit by physician Brandie Thomas Rm 2 [facility] PRE-ADMIT TESTING Start: 05-13-2017 End: 05-14-2017 Ambulatory DEFAULT PHYSICIAN Facility:[facility] Procedures Date Procedure Procedure Detail Performing Clinician Start: 11-08-2023 Antibody screen [facility] 1 Start: 10-23-2023 Radiologic examinati on knee 1/2 views Jr. Juan Carlos Alas DO Work Phone: Start: 11-14-[address] LIBERTAD YIN . Comment on above: Performed By: #### V ITAD, PSASC ####[facility] [address] [place], [place] [address]ZbCarolyn Peters Start: 09-22-2020 Basic metabolic pane l calcium total Adali May Movellasgrosso Work Phone: Start: 09-22-2020 Blood count complete [...] 09-01-2020 Blood count complete auto&auto difrntl wbc Jeff Montilla Work Phone: Start: 09-01-2020 Blood typing serolog ic abo Jeff Montilla Work Phone: Start: 09-01-2020 Electrolyte panel Suzy Ch Work Phone: Start: 09-01-2020 Iadna s aureus methicillin resist amp probe tq Kareem W Diaz Work Phone: Start: 09-01-2020 Ecg routine ecg w/le ast 12 lds trcg only w/o i&r Jeff Montilla Work Phone: Start: 09-01-2020 EKG REPORT Hpf Scanni ng Start: 07-29-2020 History of coronary artery bypass grafting History of coronary artery bypass surgery Jr. Bishop MEDEROS Work Phone: Plan of Treatment Date Care Activity Detail Author Start: 01-11-2030 DTaP,Tdap and Td Vaccines (2 - Td or Tdap) DTaP,Tdap and Td Vaccines (2 - Td or Tdap) [facility] Start: 01-11-2030 DTaP/Tdap/Td vaccine (2 - Td) DTaP/Tdap/Td vaccine (2 - Td) [place] Start: 11-08-2024 Adult BMI Screening Adult BMI Screen ing [facility] Start: 11-08-2024 Tobacco Screening Tobacco Screening [facility] Start: 11-19-2023 End: 11-19-2023 Admission to same day surgery center 11/19/2023 11:00 AM EST - 11/19/2023 2:00 PM EST Surgery [facility] [address] [place] [address] Juan Carlos Alas Jr., DO [address] [place] [address] REPLACEMENT TOTAL JOINT KNEE [83249 (CPT )] [facility] Comment on above: REPLACEMENT TOTAL INOCENCIA INT KNEE [30242 (CPT )] Start: 11-19-2023 End: 11-19-2023 Anesthesia consultation 11/19/2023 11:00 AM EST Anesthesia Event [facility] [address] [place] [address] Chon Wilkinson, DO [address] [place] [address] [facility] Start: 11-19-2023 End: 11-19-2023 Arthrp kne condyle&platu medial&lat compartments REPLACEMENT TOTAL JOINT KNEE left knee degenerative joint disease, right knee adhesive capsulitis 11/19/2023 11:00 AM EST [facility] Start: 11-19-2023 End: 11-19-2023 Manipulation knee joint under general anesthesia MANIPULATION KNEE left knee degenerative joint disease, right knee adhesive capsulitis 11/19/2023 11:00 AM EST [facility] Start: 11-19-2023 Subsequent hospital visit by physician 11/19/2023 11:00 AM EST Hospital Encounter [facility] [address] [place] [id number] Juan Carlos Alas Jr., DO [address] [facility] [address] [place] [address] [facility] Start: 11-08-2023 End: 11-05-2024 XR Femur and Tibia Views for leg length [facility] Work Phone: Comment on above: Expected: 11/08/2023 , Expires: 11/05/2024 Start: 11-06-2023 End: 11-06-2023 Patient encounter procedure 11/06/2023 8:00 AM EST Office Visit [facility] [address] [facility] [place] [id number] Jr. Juan Carlos Alas, DO [address] [facility] [address] [place] [address] [facility] Start: 05-17-2023 COVID-19 Vaccine ( season) COVID-19 Vaccine ( season) [facility] Start: 05-17-2023 Influenza vaccination [facility] Start: 09-20-2020 End: 09-20-2020 Hospital Encounter [facility] Comment on above: RIGHT KNEE TOTAL ART HROPLASTY- BIOMET Start: 09-14-2020 End: 09-14-2020 Appointment 09/14/2020 Appointment Lab [facility] Covid Screening Start: 09-10-2020 End: 09-10-2021 COVID-19 COVID-19 Lab Routine Preop testing Expected: 09/10/2020, Expires: 09/10/2021 [place] Comment on above: Expected: 09/10/2020 , Expires: 09/10/2021 Start: 05-20-2018 Pneumococcal Vaccine : 65+ Years (2 - PCV) Pneumococcal Vaccine: 65+ Years (2 - PCV) [facility] Start: 2015 Fall Risk Screening Fall Risk Screen ing [facility] Start: 2000 Administration of varicella zoster vaccine Zoster (Shingles) Vaccine (1 of 2) [facility] Start: 2000 Screening for malign ant neoplasm of colon Colon cancer screen colonoscopy [place], [place] Start: 2000 Shingles Vaccine (1 of 2) Shingles Vaccine (1 of 2) [place] Start: 1962 Depression Screening Depression Scre ening [facility] Start: 1960 Lipid panel Lipid screen [place], [place] Start: 1950 Abdominal aortic aneurysm screening AAA screen [place], [place] Start: 1950 Hepatitis C screening Hepatitis C sc reen [place], [place] Start: 1950 Screening for malign ant neoplasm of colon [facility] Basic metabolic 2000 panel Basic Metabolic Panel Lab STAT Tomorrow AM until discontinued starting 09/22/2020, 1 completed [place] Comment on above: Tomorrow AM until di scontinued starting 09/22/2020, 1 completed CBC Auto Differential CBC Auto D ifferential Lab STAT Tomorrow AM until discontinued starting 09/22/2020, [facility] Comment on above: Tomorrow AM until di scontinued starting 09/22/2020, 1 completed End: 11-05-2024 Crossmatch RBC Crossmatch RBC Blood Bank Routine Coronary artery disease involving [place] coronary artery of [place] heart without angina pectoris Preop examination Urinary frequency Hypertension, unspecified type 1 Occurrences starting 11/05/2023 until 11/05/2024 [facility] Comment on above: 1 Occurrences starti ng 11/05/2023 until 11/05/2024 Oxygen therapy [[facility] Data Set] Initiate Oxygen Therapy Protocol Respiratory Care Routine Daily until discontinued starting 09/20/2020 [facility] Comment on above: Daily until disconti nued starting 09/20/2020 Spirometry panel Incentive ileana metry Respiratory Care Routine Every 2hr while awake until discontinued starting 09/20/2020 [facility] Comment on above: Every 2hr while awak e until discontinued starting 09/20/2020 Immunizations Immunization Date Immunization Notes Care Provider Keron de oliveira 07-09-2022 influenza virus vaccine, unspecified formulation Jr. Alas DO Work Phone: [facility] 01-12-2020 tetanus toxoid, redu elyssa diphtheria toxoid, and acellular pertussis vaccine, adsorbed [facility] 1 [facility] Payers Date Payer Category Payer Unknown 2005 Medicare [id number] 1959 Medicare [id number] 1959 Unknown [id number] 1. 2.840.8[id number] 1950 Unknown [id number] 2.16.8 40.1.510010.3.579.2.177 1950 Unknown [id number] 2.16.8 40.1.777622.3.579.2.177 1950 Unknown [id number] 2.16.8 40.1.267005.3.579.2.177 1950 Unknown [id number] 2.16.84 0.1.650370.3.579.2.593 1950 Unknown [id number] 2.16.84 0.1.738215.3.579.2.593 1950 Unknown [id number] 2.16.84 0.1.080057.3.579.2.593 1950 Unknown [id number] 2.16.84 0.1.815672.3.579.2.593 1950 Unknown [id number] 2.16.84 0.1.727241.3.579.2.593 1950 Unknown [id number] 2.16.84 0.1.079784.3.579.2.593 1950 Unknown [id number] 2.16.8 40.1.771847.3.579.2.1286 1950 Unknown [id number] 2.16.8 40.1.163716.3.579.2.1286 1950 Unknown [id number] 2.16.8 40.1.835662.3.579.2.1286 1950 Unknown [id number] 2.16.8 40.1.526709.3.579.2.1286 1950 Unknown [id number] 2.16.8 40.1.811219.3.579.2.1286 1950 Unknown [id number] 2.16.8 40.1.334724.3.579.2.1286 1950 Unknown [id number] 2.16.8 40.1.587225.3.579.2.1286 1950 Unknown [id number] 2.16.8 40.1.395927.3.579.2.1286 1950 Unknown [id number] 2.16.8 40.1.934555.3.579.2.1286 1950 Unknown [id number] 2.16.84 0.1.130403.3.579.2.1259 1950 Unknown [id number] 2.16.84 0.1.829126.3.579.2.1259 1950 Unknown [id number] 2.16.84 0.1.131573.3.579.2.1259 1950 Unknown [id number] 2.16.84 0.1.627840.3.579.2.1259 1950 Unknown [id number] 2.16.84 0.1.949054.3.579.2.1259 1950 Unknown [id number] 2.16.84 0.1.739780.3.579.2.1259 1950 Unknown [id number] 2.16.84 0.1.054695.3.579.2.1259 1950 Unknown [id number] 2.16.84 0.1.488903.3.579.2.1259 1950 Unknown [id number] 2.16.84 0.1.267423.3.579.2.1259 1950 Unknown [id number] 2.16.84 0.1.142941.3.579.2.1259 1950 Unknown [id number] 2.16.84 0.1.637586.3.579.2.1259 1950 Unknown [id number] 2.16.84 0.1.792809.3.579.2.1259 1950 Unknown [id number] 2.16.84 0.1.009166.3.579.2.1259 1950 Unknown [id number] 2.16.84 0.1.453682.3.579.2.1259 1950 Unknown [id number] 2.16.84 0.1.620907.3.579.2.1259 1950 Unknown [id number] 2.16.84 0.1.172706.3.579.2.1259 1950 Unknown [id number] 2.16.84 0.1.707326.3.579.2.1259 1950 Unknown [id number] 2.16.840 .1.278554.3.579.2.1259 Social History Date Type Detail Facility Start: 09-01-2020 End: 03-22-2023 Tobacco smoking status NHIS Former smoker [place], [place] End: 03-18-1995 History of tobacco use Current smoker [place] Start: 09-01-2020 End: 09-20-2020 Tobacco use and exposure Former user [place] Start: 09-01-2020 End: 11-08-2023 Alcohol intake Current non-drinker of alcohol (finding) [place], [place] Start: 1950 Sex Assigned At Not on file [place] Exposure to SARS-CoV -2 (event) Not sure [place] History of tobacco use Cigarette Smoker [facility] Start: 03-22-2023 End: 05-22-2023 Tobacco use and exposure Smokeless tobacco non-user [facility] Start: 10-23-2023 Alcohol intake Ex-drinker (finding) [facility] Start: 10-03-2020 End: 10-23-2023 History of Social function [facility] Start: 10-03-2020 End: 10-23-2023 Tobacco use panel [facility] Frequency of Alcohol Consumption Never [facility] Start: 1950 Sex Assigned At Male [facility] Start: 01-08-2022 Gender identity Identifies as male gender (finding) [facility] Start: 01-08-2022 Sexual orientation Heterosexual (finding) [facility] Medical Equipment Procedure Code Equipment Code Equipment Origin al Text Equipment Identifier Dates Stratton Sut Healicoil W/3 Ultrabraid 5.5mm [id number] Start: 04-01-2018 Stratton Sut Healicoil W/3 Ultrabraid 5.5mm [id number] Start: 04-01-2018 Strat[place] Sut Healicoil W/3 Ultrabraid 5.5mm [id number] Start: 04-01-2018 Dup Use [id number] Impl Knee Psn All Poly Pat Ply [...] you have a Living Will/Durable Power of Licensed Clinical Psychologist for Health Care that is not on [...] after you have bathed. 5. NO nail swazi/acrylic on at least one finger. If you are having a hand, wrist or foot surgery then all nail swazi and artificial/acrylic nails must be removed from [...] please call the Preadmission Testing office at [phone], Mon.-Fri. 7 a.m.-3 p.m. Leave a voicemail [...] doctor. documented in this encounter [facility] History of Present illness Narrative 10-23-2023 Jr. 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 documented in this encounter [facility] Clinical Note 02-13-2023 Note Date [...] authenticated by: GENNY DAVIS Date: 2023-02-13 14:02 [facility] Clinical Note 11-19-2022 Note Date & [...] authenticated by: ANI HARDING Date: 2022-11-19 15:22 [facility] Progress note 07-05-2022 Note Date & [...] pain at that time. 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 [facility] Evaluation note Note Date & Type Note Facility Evaluation note Diagnosis Primary osteoarthritis of left knee- Primary Chronic pain of left knee documented in this encounter [facility] Evaluation note Note Date & Type Note Facility Evaluation note Diagnosis Coronary artery disease involving kas[place] coronary artery of [place] heart without angina pectoris- Primary Preop examination Unspecified pre-operative examination Urinary frequency Hypertension, unspecified type Coronary artery disease involving [place] coronary artery of [place] heart without angina pectoris Preop examination Unspecified pre-operative examination Urinary frequency Hypertension, unspecified type [facility] Summary Purpose Family History No Family History Records FoundNo Family History Records FoundNo Family History Records FoundNo Family History Records FoundNo Family History Records FoundNo Family History Records Found Advance Directives No Advanced Directives Records FoundDocuments on File Type Date Recorded Patient Motor Brakeman Expl anation ACP-Advance Directive ACP-Power of Licensed Clinical Psychologist Documents on File Type Date Recorded Patient Motor Brakeman Expl anation ACP-Advance Directive ACP-Power of Licensed Clinical Psychologist Latest Code Status on File Code Status [...] 09/01/2020 11:00 AM EST Left voicemessage with Karley and Bonita regarding the request for cardiac clearance * [...] SNF and will dishcharge to home with [facility]. , Hai. Notified. * Carolina Ervin PT - 09/22/2020 9:48 AM EST Physical Therapy Facility/Department: [facility] Daily Treatment Note NAME: Levon Bond : 1950 Date of Service: 09/22/2020 Discharge Recommendations: Subacute/Fdc Facility(if declining, recommend PT) RN reports patient [...] gait deviations. If pt declining SNF, recommend PT. Specific instructions for Next Treatment: gait, [...] of Anginal pain (HCC), Arthritis, Fibromyalgia, Hyperlipidemia, [place] (myocardial infarction) (HCC), Mood swings, Prolonged emergence [...] to only perform slight LAQ. OutComes Score -[facility] Score -[facility] Inpatient Mobility Raw Score : 17 (09/22/20946) -[facility] Inpatient T-Scale Score : 42.13 (09/22/20946) Mobility Inpatient [facility] 0-100% Score: 50.57 (09/22/20) Mobility Inpatient [facility] G-Code Modifier : CK (09/22/20946) Goals Short term goals Time Frame for Short term goals: 5 visits: Short term goal 1: Pt. to be indep with bed mob. 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 Carolina Ervin PT * Raj Finch RN - 09/22/2020 [...] that discharge plan is Home. Agency/Facility chosen: [facility] Awaiting pre-certification no Anticipated discharge date: [...] to hospice care. No further needs. Carolina Ervin PT * Tyson Warner MD - 09/22/2020 8:09 AM EST [facility] Office: [phone] Dwayne Orourke DO, Sabino Archibald DO, Lam Mayo DO, Momo Aguilera DO, Tyson Warner MD, Amie Haque MD, Fernando Vera MD, Deanne Clay MD, Twin Be MD, Nadeen Amezcua MD, MD Ashia, Haris Pacheco MD, Shanae Ramirez MD, Sandoval Whitaker DO, Liane Carvajal MD, Beth Gordillo MD, Homar Dennis DO, Sofiya Guzmán MD, Nat Amezcua DO, Spencer Castellano MD, MD Juan, Donya Monsalve TECHNOLOGIST DEVELOPMENT, Adali Cameron CNP, Bambi Muhammad TECHNOLOGIST DEVELOPMENT, Jennifer Keller, PATIENT CENTERED CARE SPECIALIST,Devyn Trejo, TECHNOLOGIST DEVELOPMENT, Ladi Pedersen TECHNOLOGIST DEVELOPMENT, Deyanira Leo, TECHNOLOGIST DEVELOPMENT, Mary Jane Bauman, TECHNOLOGIST DEVELOPMENT, Kuldip Knight, TECHNOLOGIST DEVELOPMENT, Charli Cueva PA-C, Heidi Foote, ZACH, Charline Swanson CNP, Adelina Adamson CNP, Madison Maya CNP, Gemma Lopez CNP, Lory Schrader CNP [facility] IN-PATIENT SERVICE [facility] Progress Note 09/22/2020 8:09 AM Name: Levon Bond Acct: [id number] Room: IP Day: 2 Admit Date: 09/20/2020 [...] Infusions: sodium chloride 125 mL/hr at 09/20/20 8569 PRN Meds: calcium carbonate, nitroGLYCERIN, sodium chloride flush, promethazine OR ondansetron,magnesium hydroxide, oxyCODONE OR oxyCODONE, HYDROmorphone OR HYDROmorphone, chlordiazePOXIDE Data: Past Medical History: has a past medical history of Anginal pain ([facility]), Arthritis, Fibromyalgia, Hyperlipidemia, [place] (myocardial infarction) ([facility]), Mood swings, Prolonged emergence from general anesthesia, [...] No results for input(s): PROT, LABALBU, LABA1C, O7CAKLT, N0JUCIR, FT4, TSH, AST, ALT, LDH, GGT, ALKPHOS, LABGGT, BILITOT, BILIDIR, AMMONIA, AMYLASE, LIPASE, LACTATE, CHOL, HDL, LDLCHOLESTEROL, CHOLHDLRATIO, TRIG, VLDL, [id number], PHENYTOIN, PHENYF, URICACID, POCGLU in the last 72 hours. ABG:No results found for: POCPH, PHART, PH, POCPCO2, BWY3TTS, PCO2, POCPO2, PO2ART, PO2, POCHCO3, ZNZ4ZXV, HCO3, NBEA, PBEA, BEART, BE, THGBART, THB, QRS9HPY, [id number], Y6QOQPAB, O2SAT, FIO2 No results found for: SPECIAL [...] Warner MD 09/22/2020 8:09 AM * Eloina Hadrin RN - 09/22/2020 3:51 AM EST Studio Musician noticed more redness on the outer part [...] Discharge Recommendations: Home with Home health PT, Subacute/Fdc Facility, Continue to assess pending progress PT [...] of Anginal pain (HCC), Arthritis, Fibromyalgia, Hyperlipidemia, [place] (myocardial infarction) (HCC), Mood swings, Prolonged emergence [...] AM-PAC Inpatient Mobility Raw Score : 17 (09/21/201510) AM-PAC Inpatient T-Scale Score : 42.13 (09/21/201510) Mobility Inpatient CMS 0-100% Score: 50.57 (09/21/201510) Mobility Inpatient CMS G-Code Modifier : CK (09/21/201510) Goals Short term goals Time Frame for Short term goals: 5 visits: Short term goal 1: Pt. to be indep with bed mob. using sheet as leg sales and marketing coordinator for Rt. LE as needed Short term [...] training and postural control in sitting/standing. Carolina Ervin, PT * Raj Finch RN - 09/21/2020 [...] AM EST CLINICAL PHARMACY NOTE: MEDS TO [facility] Select Patient?: No Total # of [...] WERE BOTH INFORMED OF THE SITUATION. * ElianeCarolina castro, PT - 09/21/2020 10:34 AM EST Physical Therapy Facility/Department: [facility] [...] of Anginal pain (HCC), Arthritis, Fibromyalgia, Hyperlipidemia, [place] (myocardial infarction) (HCC), Mood swings, Prolonged emergence [...] with bed mob. using sheet as leg sales and marketing coordinator for Rt. LE as needed Short term [...] Warner MD - 09/21/2020 9:10 AM EST [facility] Office: [phone] Dwayne Orourke DO, Sabino Archibald DO, Lam Mayo DO, Momo Aguilera DO, Tyson Warner MD, Amie Haque MD, Fernando Vera MD, Deanne Clay MD, Twin Be MD, Nadeen Amezcua MD, MD Ashia, Haris Pacheco MD, Shanae Ramirez MD, Sandoval Whitaker DO, Liane Carvajal MD, Beth Gordillo MD, Homar Dennis DO, Sofiya Guzmán MD, Nat Amezcua, DO, Spencer Castellano MD, MD Juan, Donya Monsalve, TECHNOLOGIST DEVELOPMENT, Adali Cameron, TECHNOLOGIST DEVELOPMENT, Bambi Muhammad, TECHNOLOGIST DEVELOPMENT, Jennifer Keller, PATIENT CENTERED CARE SPECIALIST,Devyn Trejo, TECHNOLOGIST DEVELOPMENT, Ladi Pedersen, TECHNOLOGIST DEVELOPMENT, Deyanira Leo, TECHNOLOGIST DEVELOPMENT, Mary Jane Bauman, TECHNOLOGIST DEVELOPMENT, Kuldip Knight, TECHNOLOGIST DEVELOPMENT, Charli Cueva PA-C, Heidi Foote, ZACH, Charline Swanson, TECHNOLOGIST DEVELOPMENT, Adelina Adamson, TECHNOLOGIST DEVELOPMENT, Madison Maya, TECHNOLOGIST DEVELOPMENT, Gemma Lopez, TECHNOLOGIST DEVELOPMENT, Lory Schrader, TECHNOLOGIST DEVELOPMENT [facility] IN-PATIENT SERVICE [facility] Progress Note 09/21/2020 9:10 AM Name: Levon Bond Acct: [id number] Room: IP Day: 1 Admit Date: 09/20/2020 [...] of Anginal pain (HCC), Arthritis, Fibromyalgia, Hyperlipidemia, [place] (myocardial infarction) (HCC), Mood swings, Prolonged emergence [...] RDW, PLT, MPV, SEDRATE, CRP, INR, DDIMER, JC2PTQYH, LABABSO in the last 72 hours. Invalid input(s): PT Chemistry:No results for input(s): NA, K, CL, CO2, GLUCOSE, BUN, CREATININE, MG, ANIONGAP, LABGLOM,GFRAA, CALCIUM, CAION, PHOS, PSA, PROBNP, TROPHS, CKTOTAL, CKMB, CKMBINDEX, MYOGLOBIN, DIGOXIN, LACTACIDWB in the last 72 hours.No results for input(s): PROT, LABALBU, LABA1C, K2MNZCU, J5HOJKF, FT4, TSH, AST, ALT, LDH, GGT, ALKPHOS, LABGGT, BILITOT, BILIDIR, AMMONIA, AMYLASE, LIPASE, LACTATE, CHOL, HDL, LDLCHOLESTEROL, CHOLHDLRATIO, TRIG, VLDL, MGG71RI, PHENYTOIN, PHENYF, URICACID, POCGLU in the last 72 hours. ABG:No results found for: POCPH, PHART, PH, POCPCO2, LNH7IUT, PCO2, POCPO2, PO2ART, PO2, POCHCO3, JJF5YYM, HCO3, NBEA, PBEA, BEART, BE, THGBART, THB, SJN5ZTV, BRZA9QCL, L0GGPTVK, O2SAT, FIO2 No results found for: SPECIAL [...] MD - 09/21/2020 7:50 AM EST Ortho [id number] Discussion of Medical Necessity for Use of [...] Intake/Output Summary (Last 24 hours) at 09/21/2020 9818 Last data filed at 09/21/2020 0453 Gross [...] 2 weeks Kareem Diaz MD * Abigail Molina, PT - 09/20/2020 6:05 PM EST Physical [...] Pt. should be OK for d/c home / after further gait training, stair training and [...] of Anginal pain (HCC), Arthritis, Fibromyalgia, Hyperlipidemia, [place] (myocardial infarction) (HCC), Mood swings, Prolonged emergence [...] Ambulation Assistance: Independent Transfer Assistance: Independent Active Machine Quilt Stuffer: Yes Mode of Transportation: Car Occupation: Retired Type of occupation: retired from [employer]. 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 [...] with bed mob. using sheet as leg sales and marketing coordinator for Rt. LE as needed Short term [...] of Anginal pain (HCC), Arthritis, Fibromyalgia, Hyperlipidemia, [place] (myocardial infarction) (HCC), Mood swings, Prolonged emergence [...] Ambulation Assistance: Independent Transfer Assistance: Independent Active Machine Quilt Stuffer: Yes Mode of Transportation: Car Occupation: Retired Type of occupation: retired from [employer]. 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 Leisure & Hobbies: [...] pt will Short term goal 1: demo [place] with ADL transfers and functional mob with good safety/pacing and approp AD/DME Short term goal 2: demo [place] with toileting routine Short term goal 3: [...] plan is Home. Agency/Facility chosen: [facility] Awaiting pre-certification no Anticipated discharge date: [...] Coronary atherosclerosis of unspecified type of vessel, [place] or graft Reason for Referral Status Reason Specialty Diagnoses / Procedures Referred By Contact Referred To Contact Open Patient Preference Physical Therapy Diagnoses Acute postoperative pain Localized osteoarthritis of right knee Kareem Diaz MD [address] [place] [address] Specialty Diagnoses / Procedures Referred By Contac t Referred To Contact Diagnoses Coronary artery disease involving [place] coronary artery of [place] heart without angina pectoris Preop examination Urinary frequency Hypertension, unspecified type Procedures ECG 12 lead Stepanic, Juan Carlos C Jr., DO [address] [facility] [address] [place] [address] Referral ID Status Reason Start Date Expiration Date V isits Requested Visits Authorized [id number] Pending Review 11/05/2023 11/04/2024 1 1 Hospital Course * Kareem Diaz MD - 09/21/2020 7:53 AM EST Physician Discharge Summary Patient ID: Levon Bond [id number] y.o. 1950 Admit date: 09/20/2020 Discharge [...] Patient Instructions: Levon Bond Home Medication Instructions JE:[id number] Printed on:09/21/20 3164 Medication Information aspirin 325 MG EC tablet [...] Agent's Name Healthcare Agent's Phone Number 09/20/20 0607 Yes, patient has an advance directive for healthcare treatment -- No, copy requested from other (See comment) -- -- -- Admitting Physician: Kareem Diaz MD PCP: Charity Yin MD Discharging Nurse: Abigail CARTER Discharging Hospital Unit/Room#: Discharging Unit Emergency Contact: Extended Emergency Contact Information Primary Emergency Contact: Hai [facility] Relation: Spouse Past Surgical History: Past Surgical History: Procedure Laterality Date ANKLE SURGERY CARDIAC CATHETERIZATION 12/19/2015 double bypass CARPAL TUNNEL RELEASE Bilateral CERVICAL FUSION COLONOSCOPY CORONARY ARTERY BYPASS GRAFT 2016 Double bypass LEG SURGERY due to accident HI SHLDR ARTHROSCOP,SURG,W/ROTAT CUFF REPR Left 04/01/2018 SHOULDER [...] Independent Dressing Assisted Toileting Independent Feeding Independent Tube Roller Independent Med Delivery whole Wound Care Documentation [...] Readmission: 6 Discharging to Facility/ Agency Name: [facility] Details FAX [address] [place] [address] Dialysis Facility (if applicable) Name: Address: Dialysis Schedule: Phone: Fax: Back Line Cook/Music Theory Professor signature: PHYSICIAN SECTION Prognosis: Good Condition at [...] THE ORTHOPEDIC COORDINATOR: RAJ FINCH RN, BSN [phone] [email or web address] YOU MAY ALSO MESSAGE ME ON GET [...] orthopedic appointment with surgeon Discharge instructions video: [email or web address] Keep it Clean Post-Operative Home instructions These instructions are to help you have the best possible recovery after your surgical procedure. [facility] is here to support you. If you have questions, call [phone] Saturday through Saturday from 7:30AM to 8:30PM to speak to a nurse. If you need to speak to someone outside of these hours, call your physician. Incision Do s and Don ts Do wash hands before and after dressing changes or when you have had any contact with your incision. Use hand sulfide head operator or antibacterial soap. Do keep your incision [...] to your discharge paperwork for further instructions [facility]: A waterproof barrier to protect [...] Everywhere. * TKR (Total Knee Replacement): Post-op ([place]) * TKR (Total Knee Replacement): Rehabilitation ([place]) * Constipation ([place]adian) * DVT (Deep Vein Thrombosis): General Info ([place]) * acetaminophen and oxycodone ([place]) * aspirin (oral) ([place]) * docusate and senna ([place]) documented in this encounter Additional Source Comments (unrecognized sect ion and content) No Status Records FoundNo Status Records FoundNo Status Records FoundNo Status Records FoundNo Status Records FoundNo Status Records Found INFORMATION SOURCE (unrecogn ized section and content) DATE CREATED AUTHOR 03/12/2018 [facility] DATE CREATED AUTHOR AUTHOR'S ORGANIZ ATION 09/23/2020 [facility] DATE CREATED AUTHOR AUTHOR'S ORGANIZ ATION 07/09/2022 [facility] DATE CREATED AUTHOR AUTHOR'S ORGANIZ ATION 02/22/2023 [facility] DATE CREATED AUTHOR AUTHOR'S ORGANIZ ATION 11/23/2023 [facility] DATE CREATED AUTHOR AUTHOR'S ORGANIZ ATION 01/02/2024 [facility] EPIC Reason for Visit (unrecogniz ed section and content) Status Reason Specialty Diagnoses / Procedures Referre d By Contact Referred To Contact Diagnoses Osteoarthritis of right knee DX OA RIGHT KNEE Procedures HI TOTAL KNEE ARTHROPLASTY RIGHT KNEE TOTAL ARTHROPLASTY- BIOMET Kareem Diaz MD [address] [place] [address] [facility] Reason Comments Pain Ordered Prescriptions (unrec [...] Care Teams (unrecognized sec tion and content) Client Experience Consultant Relationship Specialty Start Date End Date Charity Yin MD [address] [place] [phone] PCP - General Family Medicine 01/30/23 Client Experience Consultant Relationship Specialty [place] [address] [place] [id number] PCP - General 05/12/18 FOR RECORDS PERTAINING [...] BE BASED ON THE PRIMARY CLINICAL RECORDS. [facility] [employer] [facility]. provides no warranty or guarantee of the accuracy or completeness of information in this document.
[2024-01-04 11:43] LABS: Occult Blood Negative
== END 2024-01-04 11:01 | disposition home or self-care (01) ==
LOC: LAB 11:00
PROVIDERS: PCP Family Medicine; Visit Provider Family Medicine
DX: Z12.12 Encounter for screening for malignant neoplasm of rectum (principal)
CPT/HCPCS: G0328

== ENCOUNTER 2024-01-27 10:24 | Outpatient (OUT) | payer MEDICARE, OTHER, SELFPAY ==
[2024-01-27 10:46] LABS: Basophils Percent Auto 0.4 % (0.2-2.0); Eosinophils Absolute Auto 0.2 10^3/uL (0.0-0.7); Eosinophils Percent Auto 2.9 % (0.9-7.0); Hematocrit 41.2 % (42.0-54.0); Hemoglobin 13.4 g/dL (14.0-18.0); Immature Granulocytes Abs Auto 0.01 10^3/uL (0.00-0.03); Immature Granulocytes Pct Auto 0.2 % (0.0-0.5); Lymphocytes Absolute Auto 1.2 10^3/uL (1.2-3.8); Lymphocytes Percent Auto 23.6 % (20.5-60.0); Mean Corpuscular HGB Conc 32.5 g/dL (29.9-35.2); Mean Corpuscular Hemoglobin 30.9 pg (25.9-34.0); Mean Corpuscular Volume 94.9 fL (80.0-94.0); Mean Platelet Volume 9.5 fL (9.5-13.5); Monocytes Absolute Auto 0.6 10^3/uL (0.3-0.8); Monocytes Percent Auto 10.7 % (1.7-12.0); Neutrophils Absolute Auto 3.2 10^3/uL (1.4-6.5); Neutrophils Percent Auto 62.2 % (43.0-75.0); Platelet Count 253 10^3/uL (150-450); Red Blood Count 4.34 10^6/uL (4.70-6.10); Red Cell Distribution Width 12.6 % (11.0-15.0); White Blood Count 5.1 10^3/uL (4.0-11.0)
--- OUTSIDE RECORDS SUMMARY | 2024-01-27 10:47 | XMS_ITS | CCD ---
Author Organization [facility] Care Team Providers Care Respiratory Director Name Role Phone PHYSICIAN, DEFAULT Unavailable Unavailable PHYSICIAN, DEFAULT Unavailable Unavailable Charity Yin Primary Care Provider [phone] CHARITY YIN Primary Care Unavailable KAREEM DIAZ Referring Unavailable CHARITY YIN Primary Care Unavailable CHARITY YIN Primary Care Unavailable BLOOD, MOMO P Consulting Unavailable DIAZKAREEM W Attending Unavailable KAREEM DIAZ Admitting Unavailable LINDA, TYSON K Consulting Unavailable LADY, JEANNIE Attending Unavailable ALDY, JEANNIE Referring Unavailable HOY ., DR NASH [...] Unavailable Charity Yin MD Primary Care Provider Hoy MD, Charity M Primary Care Provider [phone] JUAN CARLOS ALAS JR Admitting Unavailabl e STEPJUAN CARLOS QUEZADA JR Attending Unavailabl e GURPREETRonny, CHARITY M Primary Care Unavailable RUDY VIRAMONTES Consulting Unavailable CHON WILKINSON Attending Unavailable ANNAMARIA, CHARITY M Primary Care Unavailable JUAN [...] STEPANIC JUAN CARLOS LORD Referring Unavailabl e HORonny, CHARITY M Primary Care Unavailable JUAN CARLOS ALAS JR Attending Unavailabl e JUAN CARLOS ALAS JR Referring Unavailabl e ANNAMARIA, CHARITY M Primary Care Unavailable JUAN CARLOS ALAS JR Attending Unavailabl e JUAN CARLOS ALAS JR Referring Unavailabl e GURPREETRonny, CHARITY M Primary Care Unavailable JR. ALAS GEORGE C Attending Unavaila val ALAS JR., GEORGE C Referring Unavaila MC Cleary Attending Unavailable SANDRA BURR Attending Unavailable SANDRA BURR Referring Unavailable SANDRA BURR Attending Unavailable BARBY GRIGGS Attending Unavailable JR. ALAS GEORGE C Referring Unavaila ble BARBY GRIGGS Attending Unavailable JR. ALAS GEORGE C Referring Unavaila BARBY Crandall Attending Unavailable JR. ALAS GEORGE C Referring Unavaila BARBY Crandall Attending Unavailable JR. ALAS GEORGE C Referring Unavaila LUKE Lynn Attending Unavailable JR. ALAS GEORGE C Referring Unavaila ble LUKE GUZMAN Attending Unavailable JR. ALAS GEORGE C Referring Unavaila ble SANDRA BURR Attending Unavailable SANDRA BURR Referring Unavailable SANDRA BURR Attending Unavailable BARBY GRIGGS Attending Unavailable JR. ALAS GEORGE C Referring Unavaila ble LUKE GUZMAN Attending Unavailable JR. KAMALA, JUAN CARLOS Fisher Referring Unavaila ble BRABY GRIGGS Attending Unavailable JR. KAMALA, JUAN CARLOS Fisher Referring Unavaila ble LUKE GUZMAN Attending Unavailable JR. KAMALA, JUAN CARLOS Fisher Referring Unavaila BARBY Crandall Attending Unavailable JR. KAMALA, JUAN CARLOS Fisher Referring Unavaila ble LUKE GUZMAN Attending Unavailable JR. KAMALA, JUAN CARLOS Fisher Referring Unavaila ble BARBY GRIGGS Attending Elisa ALAS JR., JUAN CARLOS Fisher Referring Unavaila ble BARBY GRIGGS Attending Unavailable JR. KAMALA, JUAN CARLOS Fisher Referring Unavaila ble BARBY GRIGGS Attending Elisa ALAS JR., JUAN CARLOS Fisher Referring Unavaila BARBY Crandall Attending Elisa ALAS JR., JUAN CARLOS Fisher Referring Unavaila ble Medications Current Medications Medication Drug Class(es) Dates [...] twenty-four hours as needed for pain HYDROcodone-acetaminophen ([place]) 5-325 MG tablet 1-2 tablets Orally every [...] CLEANUP) docusate sodium 50 mg / sennosides, correction 8.6 mg oral tablet (1 source) Start: [...] Coronary arteriosclerosis; Translations: [Atherosclerotic heart disease of [place] coronary artery without angina pectoris] Onset: 04-10-2019 [...] (Bld) [Volume fraction] 36.0 % Low 39-49 [facility] Comment on above: Performed By: #### H H #### [facility] ([id number]) [address] [place] [address]259 Hemoglobin (Bld) [Mass/Vol] 12.3 g/dL Low 13.0-17.0 [facility] Comment on above: Performed By: #### H H #### [facility] ([id number]) [address] [place] [address] 91195 HGB AND HCTon 11-20-2023 Hematocrit (Bld) [Volume fraction] 37.5 % Low 39-49 [facility] Comment on above: Performed By: #### H H #### [facility] ([id number]) [address] [place] [address] 08763 Hemoglobin (Bld) [Mass/Vol] 12.9 g/dL Low 13.0-17.0 [facility] Comment on above: Performed By: #### H H #### [facility] ([id number]) [address] [place] [address]37 HGB AND HCTon 11-19-2023 Hematocrit (Bld) [Volume fraction] 42.5 % Normal 39-49 [facility] Comment on above: Performed By: #### H H #### [facility] ([id number]) [address] [place] [address] 65374 Hemoglobin (Bld) [Mass/Vol] 14.3 g/dL Normal 13.0-17.0 [facility] Comment on above: Performed By: #### H H #### [facility] ([id number]) [address] [facility] [place] [address] XR KNEE LT 1 OR 2 VWSon [...] Fletcher MD on 11/19/2023 2:43 PM Normal [facility] XR BONE LENGTH STUDYon 11-10 XR BONE LENGTH STUDY XR BONE LENGTH STUDY CLINICAL INFORMATION:[place] artery disease involving [place] coronary artery of [place] heart without angina pectoris; Preop examination; Urinary [...] Meraz MD on 11/10/2023 2:18 PM Normal [facility] Bacteria identified Cx Nom ( U)on 11-09-2023 Service comment (Unsp spec) [Interp] <10,000 ORGANISMS/ML NORMAL URO GENITAL BEST [facility] BASIC METABOLIC PANLon 11-08 Anion gap [Moles/Vol] 7 mmol/L Normal 5-15 [facility] Comment on above: Performed By: #### C BCA, BMP #### [facility] ([id number]) [address], [address] [place] [address] Calcium [Mass/Vol] 10.0 mg/dL Normal 8.5-10.5 [facility] [place] Comment on above: Performed By: #### C BCA, BMP #### [facility] ([id number]) [address], [address] [place] [address] Chloride [Moles/Vol] 101 mmol/L Normal 98-109 [facility] Comment on above: Performed By: #### C BCA, BMP #### [facility] ([id number]) [address], [address] [place] [address] CO2 [Moles/Vol] 30 mmol/L Normal 22-32 [facility] Comment on above: Performed By: #### C BCA, BMP #### [facility] ([id number]) [address], [address] [place] [address] Creatinine [Mass/Vol] 0.92 mg/dL Normal 0.60-1.30 [facility] Comment on above: Result Comment: METH OD TRACEABLE TO IDMS STANDARD Performed By: #### C BCA, BMP #### [facility] ([id number]) [address], [address] [place] [address] GFR/1.73 sq M.predicted among non-blacks MDRD (S/P/Bld) [Vol rate/Area] 88 mL/min/{1.73_m2} Normal >59 [facility] Comment on above: Result Comment: Reported eGFR is based on the CKD-EPI 2020 equation that does not use a race coefficient. Performed By: #### C BCA, BMP #### [facility] ([id number]) [address], [address] [place] [address] Glucose [Mass/Vol] 94 mg/dL Normal 65-99 [facility] [place] Comment on above: Performed By: #### C BCA, BMP #### [facility] ([id number]) [address] [address] [place] [address] Potassium [Moles/Vol] 4.7 mmol/L Normal 3.5-5.0 [facility] Comment on above: Performed By: #### C BCA, BMP #### [facility] ([id number]) [address] [place] [address] Sodium [Moles/Vol] 138 mmol/L Normal 134-146 [facility] [place] Comment on above: Performed By: #### C ALISTAIR, BREANNA #### [facility] ([id number]) [address] [place] [address] Urea nitrogen [Mass/Vol] 23 mg/dL Normal 5-27 [facility] Comment on above: Performed By: #### C ALISTAIR, BMP #### [facility] ([id number]) [address], [address] [place] [address] Basic Metabolic Panelon 10-18 Anion gap [Moles/Vol] 7 mmol/L 5 - 15 mmol/L [facility] Calcium [Mass/Vol] 10.0 mg/dL 8.5 - 10. 5 mg/dL [facility] Chloride [Moles/Vol] 101 mmol/L 98 - 109 mmol/L [facility] CO2 [Moles/Vol] 30 mmol/L 22 - 32 mmol/L [facility] Creatinine [Mass/Vol] 0.92 mg/dL 0.60 - 1.30 mg/dL [facility] Comment on above: METHOD TRACEABLE TO IDIA STANDARD eGFR (CKD-EPI)non-race dependent 88 - PINF [facility] Comment on above: Reported eGFR is based on the CKD-EPI 2020 equation that does not use a race coefficient. Glucose [Mass/Vol] 94 mg/dL 65 - 99 mg/dL [facility] Potassium [Moles/Vol] 4.7 mmol/L 3.5 - 5.0 mmol/L [facility] Sodium [Moles/Vol] 138 mmol/L 134 - 146 mmol/L [facility] Urea nitrogen [Mass/Vol] 23 mg/dL 5 - 27 mg/dL [facility] CBC AND AUTO DIFFon 11-08-19 ABSOLUTE BASOPHIL 0.0 X10E9/L Normal 0.0-0.2 [facility] Comment on above: Performed By: #### C BCA, BMP #### [facility] ([id number]) [address], [address] [place] [address] ABSOLUTE NEUTROPHIL 6.9 X10E9/L High 1.5-6.6 [facility] Comment on above: Performed By: #### C ALISTAIR, BMP #### [facility] ([id number]) [address], [address] [place] [address] Basophils/100 WBC (Bld) 0.4 % Normal [facility] Comment on above: Performed By: #### C ALISTAIR, BMP #### [facility] ([id number]) [address], [address] [place] [address] Eosinophils (Bld) [#/Vol] 0.0 10*3/uL Normal 0.0-0.4 [facility] Comment on above: Performed By: #### C ALISTAIR, BMP #### [facility] ([id number]) [address], [address] [place] [address] Eosinophils/100 WBC (Bld) 0.6 % Normal [facility] Comment on above: Performed By: #### C ALISTAIR, BMP #### [facility] ([id number]) [address], [address] [place] [address] Erythrocyte distribution width (RBC) [Ratio] 13.3 % Normal 11.5-15.0 [facility] Comment on above: Performed By: #### C ALISTAIR, BMP #### [facility] ([id number]) [address], [address] [place] [address] Hematocrit (Bld) [Volume fraction] 45.3 % Normal 39-49 [facility] Comment on above: Performed By: #### C ALISTAIR, BMP #### [facility] ([id number]) [address], [address] [place] [address] Hemoglobin (Bld) [Mass/Vol] 15.3 g/dL Normal 13.0-17.0 [facility] Comment on above: Performed By: #### C BCA, BMP #### [facility] ([id number]) [address] [address] [place] [address] Lymphocytes (Bld) [#/Vol] 1.1 10*3/uL Normal 1.0-3.5 [facility] Comment on above: Performed By: #### C ALISTAIR, BMP #### [facility] ([id number]) [address], [address] [place] [address] Lymphocytes/100 WBC (Bld) 12.3 % Normal [facility] Comment on above: Performed By: #### C ALISTAIR, BMP #### [facility] ([id number]) [address], [address] [place] [address] MCH (RBC) [Entitic mass] 32.3 pg Normal 27-34 [facility] Comment on above: Performed By: #### C ALISTAIR, BMP #### [facility] ([id number]) [address], [address] [place] [address] MCHC (RBC) [Mass/Vol] 33.7 g/dL Normal 32-36 [facility] Comment on above: Performed By: #### C BCA, BMP #### [facility] ([id number]) [address] [address] [place] [address] MCV (RBC) [Entitic vol] 96 fL Normal 80-100 [facility] Comment on above: Performed By: #### C BCA, BMP #### [facility] ([id number]) [address] [address] [place] [address] Monocytes (Bld) [#/Vol] 0.8 10*3/uL Normal 0-0.9 [facility] Comment on above: Performed By: #### C BCA, BMP #### [facility] ([id number]) [address], [address] [place] [address] Monocytes/100 WBC (Bld) 9.0 % Normal [facility] Comment on above: Performed By: #### Natalia SAINZ, BMP #### [facility] ([id number]) [address], [address] [address] Neutrophils/100 WBC (Bld) 77.7 % Normal [facility] Comment on above: Performed By: #### Natalia SAINZ, BMP #### [facility] ([id number]) [address] [address] Platelet mean volume (Bld) [Entitic vol] 8.9 fL Normal 7-12 [facility] Comment on above: Performed By: #### Natalia SAINZ, BMP #### [facility] ([id number]) [address] [address] Platelets (Bld) [#/Vol] 257 10*3/uL Normal 150-450 [facility] Comment on above: Performed By: #### Natalia SAINZ, BMP #### [facility] ([id number]) [address] [address] RBC COUNT 4.73 X10E12/L Normal 4.10-5.70 [facility] Comment on above: Performed By: #### Natalia SAINZ, BMP #### [facility] ([id number]) [address] [address] WBC (Bld) [#/Vol] 8.9 10*3/uL Normal 4.0-11.0 [facility] Comment on above: Performed By: #### Natalia SAINZ, BMP #### [facility] ([id number]) [address] [address] CBC auto differentialon 2 Basophils (Bld) [#/Vol] 0.0 10*3/uL [facility] Basophils/100 WBC (Bld) 0.4 % [facility] Eosinophils (Bld) [#/Vol] 0.0 10*3/uL [facility] Eosinophils/100 WBC (Bld) 0.6 % [facility] Erythrocyte distribution width (RBC) [Ratio] 13.3 % 11.5 - 15.0 % [facility] Hematocrit (Bld) [Volume fraction] 45.3 % 39 - 49 % [facility] Hemoglobin (Bld) [Mass/Vol] 15.3 g/dL 13.0 - 17.0 g/dL [facility] Interpretation and review of laboratory results Abnormal [facility] Lymphocytes (Bld) [#/Vol] 1.1 10*3/uL [facility] Lymphocytes/100 WBC (Bld) 12.3 % [facility] MCH (RBC) [Entitic mass] 32.3 pg 27 - [address] [facility] MCHC (RBC) [Mass/Vol] 33.7 g/dL 32 - 36 g/dL [facility] MCV (RBC) [Entitic vol] 96 fL 80 - [address] [facility] Monocytes (Bld) [#/Vol] 0.8 10*3/uL [facility] Monocytes/100 WBC (Bld) 9.0 % [facility] Neutrophils (Bld) [#/Vol] 6.9 10*3/uL High [facility] Neutrophils/100 WBC (Bld) 77.7 % [facility] Platelet mean volume (Bld) [Entitic vol] 8.9 fL 7 - [address] [facility] Platelets (Bld) [#/Vol] 257 10*3/uL [facility] RBC (Bld) [#/Vol] 4.73 10*6/uL [facility] WBC corrected for nucl RBC Auto (Bld) [#/Vol] 8.9 [facility] ECG 12 leadon 11-08-2023 TRACEMASTERVUE [facility] Type and screen(includes ind irect wanda)on 11-08-2023 ABO O [facility] Rh Nom (Bld) Positive [facility] URINALYSISon 11-08-2023 Bilirubin Ql (U) Negative Normal NEG [facility] BLOOD/HGB Negative Normal NEG [facility] Color (U) YELLOW Normal YELLOW [facility] Glucose Ql (U) Negative Normal NEG [facility] Ketones Ql (U) Negative Normal NEG [facility] Leukocyte esterase Test strip Ql (U) Negative Normal NEG [facility] Nitrite Ql (U) Negative Normal NEG [facility] pH (U) 6.0 [pH] Normal 5.0-8.5 [facility] Protein Ql (U) Negative Normal NEG [facility] Specific gravity (U) [Rel density] 1.010 Normal 1.003-1.035 [facility] TURBIDITY CLEAR Normal CLEAR [facility] Urobilinogen (U) [Mass/Vol] mg/dL Normal <1.1 [facility] URINE CULTUREon 11-08-2023 Bacteria identified Cx Nom (U) CULTURE RESULTS <10,000 ORGANISMS/ML NORMAL URO GENITAL BEST Normal [facility] Comment on above: Performed By: #### 6 30-4 #### [facility] ([id number]) [address] [place] [address], [address] [place] [address] Urinalysison 11-08-2023 Bilirubin Ql (U) Negative Negative^Ne gati ve [facility] Color (U) YELLOW YELLOW^YELLOW [facility] Glucose (U) [Mass/Vol] Negative Negative^Negati ve mg/dL [facility] Hemoglobin Auto test strip Ql (U) Negative Negative^Negati ve [facility] Ketones (U) [Mass/Vol] Negative Negative^Negati ve mg/dL [facility] Leukocyte esterase Auto test strip Ql (U) Negative Negative^Negati ve [facility] Nitrite Auto test strip Ql (U) Negative Negative^Negati ve [facility] pH (U) 6.0 [pH] 5.0 - 8.5 [facility] Protein (U) [Mass/Vol] Negative Negative^Negati ve mg/dL [facility] Specific gravity Refractometry automated (U) [Rel density] 1.010 1.003 - 1.035 [facility] Turbidity Ql (U) CLEAR CLEAR^CLEAR [facility] Urobilinogen Qn (U) NINF [facility] XR Knee - left 1 or 2 Viewso n 10-23-2023 Imaging Result: AP and lateral views of left knee showed severe varus deformity with [id number] articulation to the medial joint line, flattening [...] 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 Ankit Peters INSULINon 11-15-2022 Insulin 12.6 uIU/mL Normal 2.6-24.9 [facility] Comment on above: Performed By: #### I NSULIN ####[facility] [address] [place] [address]DrCarolyn Peters CBC AUTO DIFFon 11-14-2022 BASO # 0.0 103/ul Normal 0.0-0.1 [facility] Comment on above: Performed By: #### C BC ####[facility] [address] [place] [address]DrCarolyn Peters Basophils/100 WBC (Bld) 0.5 % Normal 0.2-2.0 [facility] Comment on above: Performed By: #### C BC ####[facility] [address] [place] [address]DrCarolyn Peters EO # 0.1 103/ul Normal 0.0-0.7 [facility] Comment on above: Performed By: #### C BC ####[facility] [address] [place] [address]DrCarolyn Peters Eosinophils/100 WBC (Bld) 2.0 % Normal 0.9-7.0 [facility] Comment on above: Performed By: #### C BC ####[facility] [address] [place] [address]DrCarolyn Peters Erythrocyte distribution width (RBC) [Ratio] 12.6 % Normal 11.0-15.0 [facility] Comment on above: Performed By: #### C BC ####[facility] [address] [place] [address]DrCarolyn Peters Hematocrit (Bld) [Volume fraction] 46.6 % Normal 42.0-54.0 [facility] Comment on above: Performed By: #### C BC ####[facility] [address] [place] [id number]. Ankit Peters Hemoglobin (Bld) [Mass/Vol] 15.3 g/dL Normal 14.0-18.0 [facility] Comment on above: Performed By: #### C BC ####[facility] [address] [place] [id number]. Ankit Peters IG # 0.02 10e3/ul Normal 0.00-0.03 [facility] Comment on above: Performed By: #### C BC ####[facility] [address] [place] [id number]. Ankit Peters IG % 0.3 % Normal 0.0-0.5 [facility] Comment on above: Performed By: #### C BC ####[facility] [address] [place] [address]Dr. Ankit Peters LYMPH # 1.4 103/ul Normal 1.2-3.8 [facility] Comment on above: Performed By: #### C BC ####[facility] [address] [place] [id number]. Ankit Peters Lymphocytes/100 WBC (Bld) 21.5 % Normal 20.5-60.0 [facility] Comment on above: Performed By: #### C BC ####[facility] [address] [place] [id number]. Ankit Peters MANUAL DIFF REQ NO Normal [facility] Comment on above: Performed By: #### C BC ####[facility] [address] [place] [id number]. Ankit Peters MCH (RBC) [Entitic mass] 31.6 pg Normal 25.9-34.0 [facility] Comment on above: Performed By: #### C BC ####[facility] [address] [place] [id number]. Ankit Peters MCHC (RBC) [Mass/Vol] 32.8 g/dL Normal 29.9-35.2 [facility] [place] [facility] Comment on above: Performed By: #### C BC ####[facility] [address] [place] [id number]. Ankit Peters MCV (RBC) [Entitic vol] 96.3 fL Critically high 80.0-94.0 [facility] Comment on above: Performed By: #### C BC ####[facility] [address] [place] [id number]. Ankit Peters MONO # 0.6 103/ul Normal 0.3-0.8 [facility] Comment on above: Performed By: #### C BC ####[facility] [address] [place] [id number]. Ankit Peters Monocytes/100 WBC (Bld) 9.3 % Normal 1.7-12.0 [facility] Comment on above: Performed By: #### C BC ####[facility] [address] [place], [place] [address]Dr. Ankit Peters NEUT # 4.4 103/ul Normal 1.4-6.5 [facility] Comment on above: Performed By: #### C BC ####[facility] [address] [place], [place] [id number]. Ankit Peters Neutrophils/100 WBC (Bld) 66.4 % Normal 43.0-75.0 [facility] [place] [facility] Comment on above: Performed By: #### C BC ####[facility] [address] [place], [place] [id number]. Ankit Peters Platelet mean volume (Bld) [Entitic vol] 9.5 fL Normal 9.5-13.5 [facility] Comment on above: Performed By: #### C BC ####[facility] [address] [place] [id number]. Ankit Peters PLT 234 103/ul Normal 150-450 [facility] [place] [facility] Comment on above: Performed By: #### C BC ####[facility] [address] [place] [id number]. Ankit Peters RBC 4.84 106/ul Normal 4.70-6.10 [facility] [place] [facility] Comment on above: Performed By: #### C BC ####[facility] [address] [place] [id number]. Ankit Peters WBC 6.6 103/ul Normal 4.0-11.0 [facility] [facility] Comment on above: Performed By: #### C BC ####[facility] [id number] [place], [place] [address]AwDr. Ankit Peters FREE THYROXINE INDEX T7on FTI 2.82 Normal 1.30-4.50 [facility] Comment on above: Performed By: #### L IPID, URIC, CMP, TSH, T7 #### [facility] [address] [address] [address] Ankit Peters T3U 34.0 % Normal 33.0-40.0 [facility] Comment on above: Performed By: #### L IPID, URIC, CMP, TSH, T7 #### [facility] [address] [place] [address] Dr. Ankit Peters T4 [Mass/Vol] 8.30 ug/dL Normal 4.50-12.10 [facility] Comment on above: Performed By: #### L IPID, URIC, CMP, TSH, T7 #### [facility] [address] [place] [address] Dr. Ankit Peters GLYCOHEMOGLOBIN A1Con 2022 ADA RECOMMENDATION SEE BELOW Normal [facility] Comment on above: Result Comment: ADA RECOMMENDED LIMIT 4.0 - 6.0 ADA THERAPEUTIC TARGET < 7.0 ACTION SUGGESTED > 7.0 Performed By: #### A 1C #### [facility] [address] [place] [address] Dr. Ankit Peters Glucose [Mass/Vol] 105 mg/dL Normal [facility] Comment on above: Performed By: #### A 1C #### [facility] [address] [place] [address] Dr. Ankit Peters HbA1c (Bld) [Mass fraction] 5.3 % Normal 4.5-6.2 [facility] Comment on above: Performed By: #### A 1C #### [facility] [address] [place] [address] Dr. Ankit Peters LIPID PROFILEon 11-14-2022 CHOL-HDL RATIO NORM SEE BELOW Normal [facility] Comment on above: Result Comment: 3.3 - 4.4 LOW RISK 4.4 - 7.1 AVERAGE RISK 7.1 - 11.0 MODERATE RISK >11.0 HIGH RISK Performed By: #### L IPID, URIC, CMP, TSH, T7 #### [facility] [address] [address] [address] Ankit Peters Cholesterol [Mass/Vol] 154 mg/dL Normal <=200 [facility] Comment on above: Performed By: #### L IPID, URIC, CMP, TSH, T7 #### [facility] [address] [address] [address] Ankit Peters Cholesterol in HDL [Mass/Vol] 55 mg/dL Normal 40-60 [facility] Comment on above: Performed By: #### L IPID, URIC, CMP, TSH, T7 #### [facility] [address] [address] [address] Ankit Peters Cholesterol in LDL [Mass/Vol] 84.2 mg/dL Normal [facility] Comment on above: Performed By: #### L IPID, URIC, CMP, TSH, T7 #### [facility] [address] [address] [address] Ankit Peters Cholesterol.total/C holesterol in HDL [Mass ratio] 2.8 {ratio} Normal [facility] Comment on above: Performed By: #### L IPID, URIC, CMP, TSH, T7 #### [facility] [address] [address] [address] Ankit Peters HDL NORMAL > or = 60 mg/dl - LOW CARDIOVASCULAR RISK <40 mg/dl - HIGH CARDIOVASCULAR RISK Normal [facility] Comment on above: Performed By: #### L IPID, URIC, CMP, TSH, T7 #### [facility] [address] [place] [address] Dr. Ankit Peters LDL CALC NORMAL SEE BELOW Normal [facility] Comment on above: Result Comment: <100 mg/dl OPTIMAL 100 - 129 mg/dl NEAR OR ABOVE OPTIMAL 130 - 159 mg/dl BORDERLINE HIGH 160 - 189 mg/dl HIGH >190 mg/dl VERY HIGH Performed By: #### L IPID, URIC, CMP, TSH, T7 #### [facility] [address] [address] [address] Ankit Peters Triglyceride [Mass/Vol] 74 mg/dL Normal <=150 [facility] Comment on above: Performed By: #### L IPID, URIC, CMP, TSH, T7 #### [facility] [address] [address] [address] Ankit Peters VLDL CALC 14.8 mg/dL Normal [facility] Comment on above: Performed By: #### L IPID, URIC, CMP, TSH, T7 #### [facility] [address] [place] [address] Dr. Ankit Peters PROF 14(COMP METB)on 023 Albumin [Mass/Vol] 4.1 g/dL Normal 3.4-5.0 [facility] Comment on above: Performed By: #### L IPID, URIC, CMP, TSH, T7 #### [facility] [address] [address] [address] Ankit Peters Albumin/Globulin [Mass ratio] 1.2 {ratio} Normal [facility] Comment on above: Performed By: #### L IPID, URIC, CMP, TSH, T7 #### [facility] [address] [place] [address] Dr. Ankit Peters ALP [Catalytic activity/Vol] 65 U/L Normal 46-116 [facility] Comment on above: Performed By: #### L IPID, URIC, CMP, TSH, T7 #### [facility] [address] [address] [address] Ankit Peters ALT [Catalytic activity/Vol] 36 U/L Normal 16-63 [facility] Comment on above: Performed By: #### L IPID, URIC, CMP, TSH, T7 #### [facility] [address] [address] [address] Ankit Peters Anion gap [Moles/Vol] 9.1 mmol/L Normal [facility] Comment on above: Performed By: #### L IPID, URIC, CMP, TSH, T7 #### [facility] [address] [address] [address] Ankit Peters AST [Catalytic activity/Vol] 29 U/L Normal 15-37 [facility] Comment on above: Performed By: #### L IPID, URIC, CMP, TSH, T7 #### [facility] [address] [address] [address] Ankit Peters Bilirubin [Mass/Vol] 0.6 mg/dL Normal 0.2-1.0 [facility] Comment on above: Performed By: #### L IPID, URIC, CMP, TSH, T7 #### [facility] [address] [place] [address] Dr. Ankit Peters Calcium [Mass/Vol] 9.4 mg/dL Normal 8.5-10.1 [facility] Comment on above: Performed By: #### L IPID, URIC, CMP, TSH, T7 #### [facility] [address] [address] [address] Ankit Peters Chloride [Moles/Vol] 104 mmol/L Normal 98-107 [facility] Comment on above: Performed By: #### L IPID, URIC, CMP, TSH, T7 #### [facility] [address] [place] [address] Dr. Ankit Peters CO2 [Moles/Vol] 30.2 mmol/L Normal 21.0-32.0 [facility] Comment on above: Performed By: #### L IPID, URIC, CMP, TSH, T7 #### [facility] [address] [place] [address] Dr. Ankit Peters Creatinine [Mass/Vol] 0.90 mg/dL Normal 0.70-1.30 [facility] Comment on above: Performed By: #### L IPID, URIC, CMP, TSH, T7 #### [facility] [address] [place] [address] Dr. Ankit Peters EGFR-AF MOLDOVAN >60 Normal >=60 [facility] Comment on above: Performed By: #### L IPID, URIC, CMP, TSH, T7 #### [facility] [address] [address] [address] Ankit Peters EGFR-NON AF MOLDOVAN >60 Normal >=60 [facility] Comment on above: Performed By: #### L IPID, URIC, CMP, TSH, T7 #### [facility] [address] [address] [address] Ankit Peters Globulin (S) [Mass/Vol] 3.4 g/dL Normal [facility] Comment on above: Performed By: #### L IPID, URIC, CMP, TSH, T7 #### [facility] [address] [place] [address] Dr. Ankit Peters Glucose [Mass/Vol] 97 mg/dL Normal 74-106 [facility] Comment on above: Performed By: #### L IPID, URIC, CMP, TSH, T7 #### [facility] [address] [place] [address] Dr. Ankit Peters Potassium [Moles/Vol] 4.3 mmol/L Normal 3.5-5.1 [facility] Comment on above: Performed By: #### L IPID, URIC, CMP, TSH, T7 #### [facility] [address] [place] [address] Dr. Ankit Peters Protein [Mass/Vol] 7.5 g/dL Normal 6.4-8.2 [facility] Comment on above: Performed By: #### L IPID, URIC, CMP, TSH, T7 #### [facility] [address] [address] [address] Ankit Peters Sodium [Moles/Vol] 139 mmol/L Normal 136-145 [facility] Comment on above: Performed By: #### L IPID, URIC, CMP, TSH, T7 #### [facility] [address] [place] [address] Dr. Ankit Peters Urea nitrogen [Mass/Vol] 17.0 mg/dL Normal 7.0-18.0 [facility] Comment on above: Performed By: #### L IPID, URIC, CMP, TSH, T7 #### [facility] [address] [address] [address] Ankit Peters Urea nitrogen/Creatinine [Mass ratio] 18.9 mg/mg Normal [facility] Comment on above: Performed By: #### L IPID, URIC, CMP, TSH, T7 #### [facility] [address] [place], [place] [address] Dr. Ankit Peters TSHon 11-14-2022 TSH 3.285 uIU/mL Normal 0.358-3.740 [facility] Comment on above: Performed By: #### L IPID, URIC, CMP, TSH, T7 #### [facility] [address] [address] [address] Ankit Peters URIC ACID SERUMon 11-14-2022 Urate [Mass/Vol] 4.8 mg/dL Normal 3.5-7.2 [facility] Comment on above: Performed By: #### L IPID, URIC, CMP, TSH, T7 #### [facility] [address] [address] [address] Ankit Peters VITAMIN D 25 OHon 11-14-2022 VIT D 25-OH 41.4 ng/mL Normal [facility] Comment on above: Performed By: #### V TALIA, PSASC ####[facility] [address] [id number]. Ankit Peters VIT D RANGES SEE BELOW Normal [facility] Comment on above: Result Comment: <20 ng/mL Vit D deficient 20 - <30 ng/mL Vit D insufficient 30 - 100 ng/mL Vit D sufficient >100 ng/mL Potential Toxicity Performed By: #### V TALIA, PSASC ####[facility] [address] [place], [place] [address]WjCarolyn Peters Covid-19 PCR (CVDTB)on 08-17 SARS-CoV-2 (COVID-19) RNA KANDICE+probe Ql (Unsp spec) Not detected Normal NOT DETECTED [facility] Comment on above: Result Comment: This test is not yet approved or cleared by the [place] FDA. When there are no FDA-approved or cleared tests available, and other criteria are met, FDA can make tests available under an emergency access mechanism called an Emergency Use Authorization (EUA). The EUA for this test is supported by the Office Administration Instructor of Health and Human Service's (HHS's) declaration [...] consistent with SARS-CoV-2. Performed By: #### C VDTB ####[facility] [address] [place], [place] [address]Dr. Ankit Peters INFLUENZA A AND B AGon 09-11 [facility] SEE BELOW Normal [facility] Comment on above: Result Comment: Nega tive for Flu A protein angiten. Infection due to Flu A cannot be ruled out. Flu A angiten in the sample may be below the detection limit of the test. Performed By: #### I NFLUAB ####[facility] [address] [place], [place] [address]Dr. Ankit Peters INFLUBNEGH SEE BELOW Normal [facility] Comment on above: Result Comment: Nega tive for Flu B protein antigen. Infection due to Flu B cannot be ruled out. Flu B antigen in the sample may be below the detection limit of the test. Performed By: #### I NFLUAB ####[facility] [address] [place], [place] [address]Dr. Ankit Peters INFLUENZA A AG Negative Normal NEGATIVE SEE COMMENT [facility] Comment on above: Performed By: #### I NFLUAB ####[facility] [address] [place], [place] [address]Dr. Ankit Peters INFLUENZA B AG Negative Normal NEGATIVE SEE COMMENT [facility] Comment on above: Performed By: #### I NFLUAB ####[facility] [address] [place], [place] [address]DrCarolyn Peters INTERNAL CONTROLS Within Normal Limits Normal Within Normal Limits [facility] Comment on above: Performed By: #### I NFLUAB ####[facility] [address] [place], [place] [address]GoCarolyn Ankit Peters Office Visiton 07-05-2022 Follow-up visit [id number] Levon Bond 1950 M Date Provider Department Center 07/05/2022 BHUPENDRA VELAZQUEZ ORTHO MPORTHO No family history on file Level of Service:42571 [place] OFFICE/OUTPATIENT NEW MODERATE MDM 45-59 MINUTES Reason for Visit and Comments: Pain [136] Pain [136] Normal [facility] Basic Metabolic Panelon Anion gap [Moles/Vol] 7 mmol/L Low 9 - 17 mmol/L [place], [place] Bun/Cre Ratio 17 [place], [place] Calcium [Mass/Vol] 9.1 mg/dL 8.6 - 10. 4 mg/dL [place], [place] Chloride [Moles/Vol] 99 mmol/L 98 - 107 mmol/L [place] CO2 [Moles/Vol] 29 mmol/L 20 - 31 mmol/L [place] Creatinine [Mass/Vol] 0.82 mg/dL 0.7 - 1.2 mg/dL [place] GFR >60 >60 mL/min [place] GFR Non- >60 >60 mL/min [place] GFR/1.73 sq M predicted among non-blacks MDRD (S/P/Bld) [Vol rate/Area] [place] Comment on above: Average GFR for 70 o r more years old: 75 mL/min/1.73sq m Chronic Kidney Disease: <60 mL/min/1.73sq m Kidney failure: <15 mL/min/1.73sq m eGFR calculated using average adult body mass. Additional eGFR calculator available at: http://www.[employer]/multiple_crcl_2012.htm GFR/1.73 sq M predicted among non-blacks MDRD (S/P/Bld) [Vol rate/Area] NOT REPORTED [place], [place] Glucose [Mass/Vol] 112 mg/dL High 70 - 99 mg/dL [place], [place] Interpretation and review of laboratory results Abnormal [place] Potassium [Moles/Vol] 4.0 mmol/L 3.7 - 5.3 mmol/L [place] Sodium [Moles/Vol] 135 mmol/L 135 - 144 mmol/L [place] Urea nitrogen [Mass/Vol] 14 mg/dL 8 - 23 mg/dL [place], [place] Basic Metabolic Profon 09-22 (cont.) Normal [facility] Comment on above: Result Comment: Aver age GFR for 70 or more years old: 75 mL/min/1.73sq m Chronic Kidney Disease: <60 mL/min/1.73sq m Kidney failure: <15 mL/min/1.73sq m eGFR calculated using average adult body mass. Additional eGFR calculator available at: http://www.[employer]/multiple_crcl_2011.htm Performed By: #### B HARI, CDP #### [facility] [address] [facility]. [place], [place] [id number] Reducing Salon Attendant: Jeremías Donald MD Anion gap [Moles/Vol] 7 mmol/L Low 9-17 [facility] Comment on above: Performed By: #### B HARI, CDP #### [facility] [address] [facility]. [place], [place] [id number] Red[employer] Attendant: Jeremías Donald MD BUN/CRE Ratio 17 Normal 9-20 [facility] Comment on above: Performed By: #### B HARI, CDP #### [facility] [address] [facility]. [place], [place] [id number] Reducing Salon Attendant: Jeremías Donald MD Calcium [Mass/Vol] 9.1 mg/dL Normal 8.6-10.4 [facility] Comment on above: Performed By: #### B HARI, CDP #### [facility] [address] [place] [address] Red[employer] Attendant: Jeremías Donald MD Chloride [Moles/Vol] 99 mmol/L Normal 98-107 [facility] Comment on above: Performed By: #### B MP, CDP #### [facility] [address] [place] [address] Reducing Salon Attendant: Jeremías Donald MD CO2 [Moles/Vol] 29 mmol/L Normal 20-31 [facility] Comment on above: Performed By: #### B MP, CDP #### [facility] [address] [place] [address] Reducing Salon Attendant: Jeremías Donald MD Creatinine [Mass/Vol] 0.82 mg/dL Normal 0.70-1.20 [facility] Comment on above: Performed By: #### B MP, CDP #### [facility] [address] [place] [address] Reducing Salon Attendant: Jeremías Donald MD GFR, Amer >60 Normal >60 [facility] Comment on above: Performed By: #### B MP, CDP #### [facility] [address] [place] [address] Reducing Salon Attendant: Jeremías Donald MD GFR,non Amer >60 Normal >60 [facility] Comment on above: Performed By: #### B MP, CDP #### [facility] [address] [place] [address] Reducing Salon Attendant: Jeremías Donald MD Glucose [Mass/Vol] 112 mg/dL High 70-99 [facility] Comment on above: Performed By: #### B MP, CDP #### [facility] [address] [place] [address] Reducing Salon Attendant: Jeremías Donald MD Potassium [Moles/Vol] 4.0 mmol/L Normal 3.7-5.3 [facility] Comment on above: Performed By: #### B HARI, CDP #### [facility] [address] [facility] [place] [address] Reducing Salon Attendant: Jeremías Donald MD Sodium [Moles/Vol] 135 mmol/L Normal 135-144 [facility] Comment on above: Performed By: #### B HARI, CDP #### [facility] [address] [facility] [place] [place] [address] Reducing Salon Attendant: Jeremías Donald MD Urea nitrogen [Mass/Vol] 14 mg/dL Normal 8-23 [facility] Comment on above: Performed By: #### B HARI, CDP #### [facility] [address] [facility] [place] [place] [address] Reducing Salon Attendant: Jeremías Donald MD Staging: NOT REPORTED Normal [facility] Comment on above: Performed By: #### B HARI, CDP #### [facility] [address] [facility] [place] [place] [address] Reducing Salon Attendant: Jeremías Donald MD CBC Auto Differentialon Basophils (Bld) [#/Vol] 0.03 10*3/uL [place] Basophils/100 WBC (Bld) 0 % 0 - 2 % [place] Differential Type NOT REPORTED [place] Eosinophils (Bld) [#/Vol] 0.10 10*3/uL [place] Eosinophils/100 WBC (Bld) 1 % 1 - 4 % [place] Erythrocyte distribution width (RBC) [Ratio] 12.0 % 11.8 - 14.4 % [place] Hematocrit (Bld) [Volume fraction] 39.6 % Low 40.7 - 50.3 % [place] Hemoglobin (Bld) [Mass/Vol] 12.8 g/dL Low 13 - 17 g/dL [place] Immature granulocytes (Bld) [#/Vol] 0.03 10*3/uL [place] Immature granulocytes (Bld) [#/Vol] 0 % 0 [place] Interpretation and review of laboratory results Abnormal [place] Lymphocytes (Bld) [#/Vol] 0.92 10*3/uL Low [place] Lymphocytes/100 WBC (Bld) 8 % Low 24 - 43 % [place] MCH (RBC) [Entitic mass] 32.1 pg 25.2 - 33.5 pg [place] MCHC (RBC) [Mass/Vol] 32.3 g/dL 28.4 - 34.8 g/dL [place] MCV (RBC) [Entitic vol] 99.2 fL 82.6 - 102.9 fL [place] Monocytes (Bld) [#/Vol] 1.26 10*3/uL High [place] Monocytes/100 WBC (Bld) 11 % 3 - 12 % [place] Platelet mean volume (Bld) [Entitic vol] 10.0 fL 8.1 - 13.5 fL [place] Platelets (Bld) [#/Vol] NOT REPORTED [place] Platelets (Bld) [#/Vol] 203 10*3/uL [place] RBC (Bld) [#/Vol] 3.99 10*6/uL Low 4.21 - 5.7 7 m/uL [place] RBC morphology finding Nom (Bld) NOT REPORTED [place] Segmented neutrophils/100 WBC (Bld) 80 % High 36 - 65 % [place] Segs Absolute 8.94 High [place] WBC (Bld) [#/Vol] 11.3 10*3/uL [place] WBC (Bld) [#/Vol] 0.0 10*3/uL 0.0 per 100 WBC M [place] WBC Morphology NOT REPORTED MercMAISHA Jacobson CBC with Diffon 09-22-2020 Abs. Basophil 0.03 k/uL Normal 0.00-0.20 [facility] Comment on above: Performed By: #### B HARI, CDP #### [facility] [address] [facility] [place] [place] [address] Reducing Salon Attendant: Jeremías Donald MD Abs.Imm.Granulocyte 0.03 k/uL Normal 0.00-0.30 [facility] Comment on above: Performed By: #### B HARI, CDP #### [facility] [address] [place] [address] Reducing Salon Attendant: Jeremías Donald MD Abs.Neutrophil (Seg) 8.94 k/uL High 1.50-8.10 [facility] Comment on above: Performed By: #### B HARI, CDP #### [facility] [address] [place] [address] Reducing Salon Attendant: Jeremías Donald MD Basophils/100 WBC (Bld) 0 % Normal 0-2 [facility] Comment on above: Performed By: #### B HARI, CDP #### [facility] [address] [place] [address] Reducing Salon Attendant: Jeremías Donald MD Eosinophils (Bld) [#/Vol] 0.10 10*3/uL Normal 0.00-0.44 [facility] Comment on above: Performed By: #### B HARI, CDP #### [facility] [address] [place] [address] Reducing Salon Attendant: Jeremías Donald MD Eosinophils/100 WBC (Bld) 1 % Normal 1-4 [facility] Comment on above: Performed By: #### B HARI, CDP #### [facility] [address] [place] [address] Reducing Salon Attendant: Jeremías Donald MD Erythrocyte distribution width (RBC) [Ratio] 12.0 % Normal 11.8-14.4 [facility] Comment on above: Performed By: #### B HARI, CDP #### [facility] [address] [place] [address] Reducing Salon Attendant: Jeremías Donald MD Hematocrit (Bld) [Volume fraction] 39.6 % Low 40.7-50.3 [facility] Comment on above: Performed By: #### B HARI, CDP #### [facility] [address] [place] [address]. [place] [address] Reducing Salon Attendant: Jeremías Donald MD Hemoglobin (Bld) [Mass/Vol] 12.8 g/dL Low 13.0-17.0 [facility] Comment on above: Performed By: #### B HARI, CDP #### [facility] [address] [place], [place] [address]ia [facility] [place] [address] Reducing Salon Attendant: Jeremías Donald MD Immature granulocytes (Bld) [#/Vol] 0 % Normal 0 [facility] Comment on above: Performed By: #### Anyi NORIEGA, CDP #### [facility] [address] [place] [address] Reducing Salon Attendant: Jeremías Donald MD Lymphocytes (Bld) [#/Vol] 0.92 10*3/uL Low 1.10-3.70 [facility] Comment on above: Performed By: #### B HARI, CDP #### [facility] [address] [place], [place] [address]ia [facility] [place] [address] Reducing Salon Attendant: Jeremías Donald MD Lymphocytes/100 WBC (Bld) 8 % Low 24-43 [facility] Comment on above: Performed By: #### B HARI, CDP #### [facility] [address] [facility] [place] [address] Reducing Salon Attendant: Jeremías Donald MD MCH (RBC) [Entitic mass] 32.1 pg Normal 25.2-33.5 [facility] Comment on above: Performed By: #### B MP, CDP #### [facility] [address] [facility] [place] [place] [address] Reducing Salon Attendant: Jeremías Donald MD MCHC (RBC) [Mass/Vol] 32.3 g/dL Normal 28.4-34.8 [facility] Comment on above: Performed By: #### B MP, CDP #### [facility] [address] [place] [address]. [place] [address] Reducing Salon Attendant: Jeremías Donald MD MCV (RBC) [Entitic vol] 99.2 fL Normal 82.6-102.9 [facility] Comment on above: Performed By: #### B MP, CDP #### [facility] [address] [place] [address]. [place] [address] Reducing Salon Attendant: Jeremías Donald MD Monocytes (Bld) [#/Vol] 1.26 10*3/uL High 0.10-1.20 [facility] Comment on above: Performed By: #### B HARI, CDP #### [facility] [address] [place] [address]. [place] [address] Reducing Salon Attendant: Jeremías Donald MD Monocytes/100 WBC (Bld) 11 % Normal 3-12 [facility] Comment on above: Performed By: #### B MP, CDP #### [facility] [address] [place] [address]. [place] [address] Reducing Salon Attendant: Jeremías Donald MD Neutrophil (Seg) 80 % High 36-65 [facility] Comment on above: Performed By: #### B MP, CDP #### [facility] [address] [place] [address] Reducing Salon Attendant: Jeremías Donald MD NRBC Automated 0.0 per 100 WBC Normal 0.0 [facility] Comment on above: Performed By: #### B MP, CDP #### [facility] [address] [place] [address] Reducing Salon Attendant: Jeremías Donald MD Platelet mean volume (Bld) [Entitic vol] 10.0 fL Normal 8.1-13.5 [facility] Comment on above: Performed By: #### B MP, CDP #### [facility] [facility] [place] [address] Reducing Salon Attendant: Jeremías Donald MD Platelets (Bld) [#/Vol] 203 10*3/uL Normal 138-453 [facility] Comment on above: Performed By: #### B MP, CDP #### [facility] [address] [place] [address] Reducing Salon Attendant: Jeremías Donald MD RBC (Bld) [#/Vol] 3.99 10*6/uL Low 4.21-5.77 [facility] Comment on above: Performed By: #### B MP, CDP #### [facility] [place] [address] Reducing Salon Attendant: Jeremías Donald MD WBC (Bld) [#/Vol] 11.3 10*3/uL Normal 3.5-11.3 [facility] Comment on above: Performed By: #### B MP, CDP #### [facility] [place] [address] Reducing Salon Attendant: Jeremías Donald MD Auto Diff Performed NOT REPORTED Normal [facility] Comment on above: Performed By: #### B MP, CDP #### [facility] [address] [facility] [place] [place] [address] Reducing Salon Attendant: Jeremías Donald MD Platelets (Bld) [#/Vol] NOT REPORTED Normal [facility] Comment on above: Performed By: #### B MP, CDP #### [facility] [address] [place] [address]. [place] [address] Reducing Salon Attendant: Jeremías Donald MD RBC morphology finding Nom (Bld) NOT REPORTED Normal [facility] Comment on above: Performed By: #### B MP, CDP #### [facility] [address] [place] [address]. [place] [address] Reducing Salon Attendant: Jeremías Donald MD WBC Morphology NOT REPORTED Normal [facility] Comment on above: Performed By: #### B MP, CDP #### [facility] [address] [place] [address]. [place] [address] Reducing Salon Attendant: Jeremías oDnald MD COVID-19on 09-15-2020 SARS-CoV-2 Not Detected Not Detected [place], [place] Comment on above: The specimen is NEGATIVE for SARS-CoV-2, the novel coronavirus associated with COVID-19. A negative result does not rule out COVID-19. This test has been authorized by the FDA under an Emergency Use Authorization (EUA) for use by authorized laboratories. Favor SARS-CoV-2 Reagents for [employer] are designed to detect the virus that causes COVID-19 in patients with signs and symptoms of infection who are suspected of COVID-19. An individual without symptoms of COVID-19 and who is not shedding SARS-CoV-2 virus would expect to have a negative (not detected) result in this assay. Fact sheet for Healthcare Providers: https://www.fda.gov/media/215725/download Fact sheet for Patients: https://www.fda.gov/media/580559/download METHODOLOGY: RT-PCR SARS-CoV-2 [place], [place] SARS-CoV-2, [place], [place] Source .NASOPHARYNGEAL SWAB [place] [id number] 09-15-2020 SARS-CoV-2 Not Detected Normal [facility] Comment on above: Result Comment: The specimen is NEGATIVE for SARS-CoV-2, the novel coronavirus associated with COVID-19. A negative result does not rule out COVID-19. This test has been authorized by the FDA under an Emergency Use Authorization (EUA) for use by authorized laboratories. Favor SARS-CoV-2 Reagents for [employer] are designed to detect the virus that causes COVID-19 in patients with signs and symptoms of infection who are suspected of COVID-19. An individual without symptoms of COVID-19 and who is not shedding SARS-CoV-2 virus would expect to have a negative (not detected) result in this assay. Fact sheet for Healthcare Providers: https://www.fda.gov/media/464737/download Fact sheet for Patients: https://www.fda.gov/media/902172/download METHODOLOGY: RT-PCR Performed By: #### C OVID #### [facility] [address] [place] [address] Reducing Salon Attendant: Jeremías Donald MD [address] [address] Reducing Salon Attendant: Rah Mccollum MD SARS-CoV-2 [facility] Comment on above: Performed By: #### C OVID #### [facility] [address] [place] [address] Reducing Salon Attendant: Jeremías Donald MD [address] [id number] Reducing Salon Attendant: Rah Mccollum MD SARS-CoV-2,Rapid [facility] Comment on above: Performed By: #### C OVID #### [facility] [address] [place] [address] Reducing Salon Attendant: Jeremías Donald MD [facility] [address] [place] [address] Reducing Salon Attendant: Rah Mccollum MD [id number] 09-14-2020 SARS-CoV-2 Source .NASOPHARYNGEAL SWAB Normal [facility] Comment on above: Performed By: #### C OVID #### [facility] [address] [place], [place] [id number] Reducing Salon Attendant: Jeremías Donald MD [facility] [address] [place] [address] Reducing Salon Attendant: Rah Mccollum MD EKG 12 Leadon 09-02-2020 Atrial Rate 61 BPM [facility], [place] P [place] 66 degrees [facility], [place] P-R Interval 168 ms [facility], [place] Q-T Interval 406 ms [facility] QRS Duration 98 ms [facility] QTc Calculation (Bazett) 408 ms [facility] , [place] R [place] 27 degrees [facility], [place] T [place] 51 degrees [facility], [place] Ventricular Rate 61 BPM [facility], [place] Marcell, Mhpn Incoming Ekg Results From [facility] [place] - 09/02/2020 8:25 AM EST Normal sinus rhythm Possible Anterior infarct , age undetermined Abnormal ECG When compared with ECG of 02-APR-2018 10:00, Minimal criteria for Inferior infarct are no longer Present [place] Normal sinus rhythm Possible Anterior infarct , age undetermined Abnormal ECG When compared with ECG of 02-APR-2018 10:00, Minimal criteria for Inferior infarct are no longer Present [place] MRSA DNA Probe, Nasalon 08-16 MRSA, DNA, Nasal NEGATIVE: MRSA DNA not detected by nucleic acid amplification. NEGATIVE: MRSA DNA not detected by nucleic acid amplificati [place] Comment on above: Results should be used as an adjunct to nosocomial control efforts to identify patients needing enhanced precautions. The test is not intended to identify patients with staphylococcal infections. Results should not be used to guide or monitor treatment for MRSA infections. Specimen Description .NASAL SWAB [facility] [place] MRSA, DNA, Nasalon 0 MRSA, DNA, Nasal NEGATIVE: MRSA DNA not detected by nucleic acid amplification. Normal NMRSAA [facility] Comment on above: Result Comment: Results should be used as an adjunct to nosocomial control efforts to identify patients needing enhanced precautions. The test is not intended to identify patients with staphylococcal infections. Results should not be used to guide or monitor treatment for MRSA infections. Performed By: #### M RSANO #### [facility] [address] [place], [place] [id number] Reducing Salon Attendant: Jeremías Donald MD [facility] [address] [place], [place] [id number] Reducing Salon Attendant: Rah Mccollum MD BUN & Creatinineon 0 Creatinine [Mass/Vol] 1.06 mg/dL 0.7 - 1.2 mg/dL [place], [place] GFR >60 >60 mL/min [place] GFR Non- >60 >60 mL/min [place] GFR/1.73 sq M predicted among non-blacks MDRD (S/P/Bld) [Vol rate/Area] NOT REPORTED [place] GFR/1.73 sq M predicted among non-blacks MDRD (S/P/Bld) [Vol rate/Area] [place] Comment on above: Average GFR for 70 o r more years old: 75 mL/min/1.73sq m Chronic Kidney Disease: <60 mL/min/1.73sq m Kidney failure: <15 mL/min/1.73sq m eGFR calculated using average adult body mass. Additional eGFR calculator available at: http://www.[employer]/multiple_crcl_2012.htm Urea nitrogen [Mass/Vol] 23 mg/dL 8 - 23 mg/dL [place] BUN + Creatinineon 0 (cont.) Normal [facility] Comment on above: Result Comment: Aver age GFR for 70 or more years old: 75 mL/min/1.73sq m Chronic Kidney Disease: <60 mL/min/1.73sq m Kidney failure: <15 mL/min/1.73sq m eGFR calculated using average adult body mass. Additional eGFR calculator available at: http://www.[employer]com/multiple_crcl_2012.htm Performed By: #### C DP, BUNCRT, LYTE #### [facility] [address] [place] [address] Reducing Salon Attendant: Jeremías Donald MD Creatinine [Mass/Vol] 1.06 mg/dL Normal 0.70-1.20 [facility] Comment on above: Performed By: #### C DP, BUNCRT, LYTE #### [facility] [address] [facility] [place] [address] Reducing Salon Attendant: Jeremías Donald MD GFR, Amer >60 Normal >60 [facility] Comment on above: Performed By: #### C DP, BUNCRT, LYTE #### [facility] [address] [facility] [place] [place] [address] Reducing Salon Attendant: Jeremías Donald MD GFR,non Amer >60 Normal >60 [facility] Comment on above: Performed By: #### C DP, BUNCRT, LYTE #### [facility] [address] [facility] [place] [place] [address] Reducing Salon Attendant: Jeremías Donald MD Urea nitrogen [Mass/Vol] 23 mg/dL Normal 8-23 [facility] Comment on above: Performed By: #### C DP, BUNCRT, LYTE #### [facility] [address] [facility] [place] [address] Reducing Salon Attendant: Jeremías Donald MD Staging: NOT REPORTED Normal [facility] Comment on above: Performed By: #### C DP, BUNCRT, LYTE #### [facility] [address] [facility] [place] [address] Reducing Salon Attendant: Jeremías Donald MD CBC Auto Differentialon 12-1 7-2020 Basophils (Bld) [#/Vol] 0.04 10*3/uL [place] Basophils/100 WBC (Bld) 1 % 0 - 2 % [place] Differential Type NOT REPORTED [place] Eosinophils (Bld) [#/Vol] 0.14 10*3/uL [place] Eosinophils/100 WBC (Bld) 2 % 1 - 4 % [place] Erythrocyte distribution width (RBC) [Ratio] 12.3 % 11.8 - 14.4 % [place] Hematocrit (Bld) [Volume fraction] 46.2 % 40.7 - 50.3 % [place] Hemoglobin (Bld) [Mass/Vol] 14.7 g/dL 13 - 17 g/dL [place] Immature granulocytes (Bld) [#/Vol] 0.01 10*3/uL [place] Immature granulocytes (Bld) [#/Vol] 0 % 0 [place] Interpretation and review of laboratory results Abnormal [place] Lymphocytes (Bld) [#/Vol] 1.43 10*3/uL [place] Lymphocytes/100 WBC (Bld) 19 % Low 24 - 43 % [place] MCH (RBC) [Entitic mass] 31.8 pg 25.2 - 33.5 pg [place] MCHC (RBC) [Mass/Vol] 31.8 g/dL 28 - 38 g/dL [place] MCV (RBC) [Entitic vol] 100.0 fL 82.6 - 102.9 fL [place] Monocytes (Bld) [#/Vol] 0.53 10*3/uL [place] Monocytes/100 WBC (Bld) 7 % 3 - 12 % [place] Platelet mean volume (Bld) [Entitic vol] 9.5 fL 8.1 - 13.5 fL [place] Platelets (Bld) [#/Vol] 233 10*3/uL [place] Platelets (Bld) [#/Vol] NOT REPORTED [place] RBC (Bld) [#/Vol] 4.62 10*6/uL 4.21 - 5.7 7 m/uL [place] RBC morphology finding Nom (Bld) NOT REPORTED [place] Segmented neutrophils/100 WBC (Bld) 71 % High 36 - 65 % [place] Segs Absolute 5.25 [place], [place] WBC (Bld) [#/Vol] 7.4 10*3/uL [place] WBC (Bld) [#/Vol] NOT REPORTED 0.0 per 100 WBC [place] WBC Morphology NOT REPORTED [place], [place] CBC with Diffon 09-01-2020 Abs. Basophil 0.04 k/uL Normal 0.00-0.20 [facility] Comment on above: Performed By: #### C DP, BUNCRT, LYTE #### [facility] [address] [place] [address] Reducing Salon Attendant: Jeremías Donald MD Abs.Imm.Granulocyte 0.01 k/uL Normal 0.00-0.30 [facility] Comment on above: Performed By: #### C DP, BUNCRT, LYTE #### [facility] [address] [place] [address] Reducing Salon Attendant: Jeremías Donald MD Abs.Neutrophil (Seg) 5.25 k/uL Normal 1.50-8.10 [facility] Comment on above: Performed By: #### C DP, BUNCRT, LYTE #### [facility] [address] [place] [address] Reducing Salon Attendant: Jeremías Donald MD Basophils/100 WBC (Bld) 1 % Normal 0-2 [facility] Comment on above: Performed By: #### C DP, BUNCRT, LYTE #### [facility] [address] [place] [address] Reducing Salon Attendant: Jeremías Donald MD Eosinophils (Bld) [#/Vol] 0.14 10*3/uL Normal 0.00-0.44 [facility] Comment on above: Performed By: #### C DP, BUNCRT, LYTE #### [facility] [address] [facility] [place] [place] [address] Reducing Salon Attendant: Jeremías Donald MD Eosinophils/100 WBC (Bld) 2 % Normal 1-4 [facility] Comment on above: Performed By: #### C DP, BUNCRT, LYTE #### [facility] [address] [place] [address] Reducing Salon Attendant: Jeremías Donald MD Erythrocyte distribution width (RBC) [Ratio] 12.3 % Normal 11.8-14.4 [facility] Comment on above: Performed By: #### C DP BUNCRT, LYTE #### [facility] [address] [place] [address]. [place] [address] Reducing Salon Attendant: Jeremías Donald MD Hematocrit (Bld) [Volume fraction] 46.2 % Normal 40.7-50.3 [facility] Comment on above: Performed By: #### C DP BUNCRT, LYTE #### [facility] [address] [place] [address]. [place] [address] Reducing Salon Attendant: Jeremías Donald MD Hemoglobin (Bld) [Mass/Vol] 14.7 g/dL Normal 13.0-17.0 [facility] Comment on above: Performed By: #### C DP, BUNCRT, LYTE #### [facility] [address] [place] [address]. [place] [address] Reducing Salon Attendant: Jeremías Donald MD Immature granulocytes (Bld) [#/Vol] 0 % Normal 0 [facility] Comment on above: Performed By: #### C DP BUNCRT, LYTE #### [facility] [address] [facility] [place] [address] Reducing Salon Attendant: Jeremías Donald MD Lymphocytes (Bld) [#/Vol] 1.43 10*3/uL Normal 1.10-3.70 [facility] Comment on above: Performed By: #### C DP, BUNCRT, LYTE #### [facility] [address] [place] [address]. [place] [address] Reducing Salon Attendant: Jeremías Donald MD Lymphocytes/100 WBC (Bld) 19 % Low 24-43 [facility] Comment on above: Performed By: #### C DP, BUNCRT, LYTE #### [facility] [address] [place] [address]. [place] [address] Reducing Salon Attendant: Jeremías Donald MD MCH (RBC) [Entitic mass] 31.8 pg Normal 25.2-33.5 [facility] Comment on above: Performed By: #### C DP, BUNCRT, LYTE #### [facility] [address] [place] [address]. [place] [address] Reducing Salon Attendant: Jeremías Donald MD MCHC (RBC) [Mass/Vol] 31.8 g/dL Normal 28.0-38.0 [facility] Comment on above: Performed By: #### C DP, BUNCRT, LYTE #### [facility] [facility] [place] [address] Reducing Salon Attendant: Jeremías Donald MD MCV (RBC) [Entitic vol] 100.0 fL Normal 82.6-102.9 [facility] Comment on above: Performed By: #### C DP, BUNCRT, LYTE #### [facility] [address] [place] [address]. [place] [address] Reducing Salon Attendant: Jeremías Donald MD Monocytes (Bld) [#/Vol] 0.53 10*3/uL Normal 0.10-1.20 [facility] Comment on above: Performed By: #### C DP, BUNCRT, LYTE #### [facility] [address] [place] [address] Reducing Salon Attendant: Jeremías Donald MD Monocytes/100 WBC (Bld) 7 % Normal 3-12 [facility] Comment on above: Performed By: #### C DP, BUNCRT, LYTE #### [facility] [address] [facility] [place] [place] [address] Reducing Salon Attendant: Jeremías Donald MD Neutrophil (Seg) 71 % High 36-65 [facility] Comment on above: Performed By: #### C DP, BUNCRT, LYTE #### [facility] [facility] [place] [address] Reducing Salon Attendant: Jeremías Donald MD Platelet mean volume (Bld) [Entitic vol] 9.5 fL Normal 8.1-13.5 [facility] Comment on above: Performed By: #### C DP, BUNCRT, LYTE #### [facility] [facility] [place] [address] Reducing Salon Attendant: Jeremías Donald MD Platelets (Bld) [#/Vol] 233 10*3/uL Normal 138-453 [facility] Comment on above: Performed By: #### C DP, BUNCRT, LYTE #### [facility] [facility] [place] [address] Reducing Salon Attendant: Jeremías Donald MD RBC (Bld) [#/Vol] 4.62 10*6/uL Normal 4.21-5.77 [facility] Comment on above: Performed By: #### C DP, BUNCRT, LYTE #### [facility] [address] [place] [address] Reducing Salon Attendant: Jeremías Donald MD WBC (Bld) [#/Vol] 7.4 10*3/uL Normal 3.5-11.3 [facility] Comment on above: Performed By: #### C DP, BUNCRT, LYTE #### [facility] [address] [place], [place] [address] [place] [address] Reducing Salon Attendant: Jeremías Donald MD Auto Diff Performed NOT REPORTED Normal [facility] Comment on above: Performed By: #### C DP, BUNCRT, LYTE #### [facility] [address] [place] [address]. [place] [address] Reducing Salon Attendant: Jeremías Donald MD NRBC Automated NOT REPORTED Normal 0.0 [facility] Comment on above: Performed By: #### C DP, BUNCRT, LYTE #### [facility] [address] [place], [place] [address]ia [facility] [place] [address] Reducing Salon Attendant: Jeremías Donald MD Platelets (Bld) [#/Vol] NOT REPORTED Normal [facility] Comment on above: Performed By: #### C DP, BUNCRT, LYTE #### [facility] [address] [place] [address]. [place] [address] Reducing Salon Attendant: Jeremías Donald MD RBC morphology finding Nom (Bld) NOT REPORTED Normal [facility] Comment on above: Performed By: #### C DP, BUNCRT, LYTE #### [facility] [address] [place] [address]. [place] [address] Reducing Salon Attendant: Jeremías Donald MD WBC Morphology NOT REPORTED Normal [facility] Comment on above: Performed By: #### C DP, BUNCRT, LYTE #### [facility] [address] [place], [place] [address]ia [facility] [place] [address] Reducing Salon Attendant: Jeremías Donald MD Electrolyte Panelon 09-01-20 20 Anion gap [Moles/Vol] 10 mmol/L 9 - 17 mmol/L [facility] , [place] Chloride [Moles/Vol] 102 mmol/L 98 - 107 mmol/L [facility] [place] CO2 [Moles/Vol] 27 mmol/L 20 - 31 mmol/L [facility], [place] Potassium [Moles/Vol] 4.2 mmol/L 3.7 - 5.3 mmol/L [facility], [place] Sodium [Moles/Vol] 139 mmol/L 135 - 144 mmol/L [facility] Electrolyteson 09-01-2020 Anion gap [Moles/Vol] 10 mmol/L Normal - [facility] Comment on above: Performed By: #### C MP BUNCRT, LYTE #### [facility] [address] [facility] [place] [place] [address] Reducing Salon Attendant: Jeremías Donald MD Chloride [Moles/Vol] 102 mmol/L Normal 98-107 [facility] Comment on above: Performed By: #### C MP BUNCRT, LYTE #### [facility] [address] [facility] [place] [place] [address] Reducing Salon Attendant: Jeremías Donald MD CO2 [Moles/Vol] 27 mmol/L Normal 20-31 [facility] Comment on above: Performed By: #### C DP BUNCRT, LYTE #### [facility] [address] [facility] [place] [place] [address] Reducing Salon Attendant: Jeremías Donald MD Potassium [Moles/Vol] 4.2 mmol/L Normal 3.7-5.3 [facility] Comment on above: Performed By: #### C MP BUNCRT, LYTE #### [facility] [address] [facility] [place] [address] Reducing Salon Attendant: Jeremías Donald MD Sodium [Moles/Vol] 139 mmol/L Normal 135-144 [facility] Comment on above: Performed By: #### C NOMAN GRESHAM LYTE #### [facility] [address] [place] [address] Reducing Salon Attendant: Jeremías Donald MD MRSA, DNA, Nasalon 0 Specimen Description .NASAL SWAB Normal [facility] Comment on above: Performed By: #### M RSANO #### [facility] [address] [place] [address] Reducing Salon Attendant: Jeremías Donald MD [address] [address] Reducing Salon Attendant: Rah Mccollum MD TYPE AND SCREENon 09-01-2020 ABO/Rh Positive [facility], [place] Arm Band Number [id number] [facility] [place], [place] Expiration Date 09/23/2020,2359 [facility] [place], [place] Type + Screenon 09-01-2020 Type + Screen Sample Expiration 09/23/2020,2359 Arm Band Number [id number] ABO/Rh(D) O POSITIVE Antibody Screen NEGATIVE Normal [facility] Comment on above: Performed By: #### T YS #### [facility] [address] [place] [address] Reducing Salon Attendant: Jeremías Donald MD Vital Signs Date Time Vital Sign Value Performing Clinician Facility 11-08-2023 09:07-0500 Body height 172.7 cm P[facility] [address] [facility] 11-08-2023 09:07-0500 Body mass index (BMI) [Ratio] 23.42 kg/m2 [facility] [address] [facility] 11-08-2023 09:07-0500 Body weight 69.85 kg Pmh [address] [facility] 10-23-2023 08:08-0500 Body height 172.7 cm Jr. Alas DO Work Phone: [facility] 10-23-2023 08:08-0500 Body mass index (BMI) [Ratio] 23.11 kg/m2 Jr. Stepanic DO Work Phone: [facility] 10-23-2023 08:08-0500 Body weight 68.95 kg Jr. Stepanic DO Work Phone: [facility] 09-22-2020 11:33-0500 Body Temperature 98.8 [degF] [facility] [place] 09-22-2020 11:33-0500 BP Diastolic 63 mm[Hg] [facility] , [place] 09-22-2020 11:33-0500 BP Systolic 129 mm[Hg] [facility] , [place] 09-22-2020 11:33-0500 Pulse (Heart Rate) 65 /min [facility] 09-22-2020 11:33-0500 Pulse Oximetry 97 % [facility] , [place] 09-22-2020 11:33-0500 Respiratory Rate 17 /min [facility], [place] 09-20-2020 06:08-0500 BMI (Body Mass Index) 23.63 kg/m2 Kareem Diaz [facility], [place] 09-20-2020 06:08-0500 Body weight 70.[address] [facility] , [place] 09-20-2020 06:08-[address] [facility] , [place] 09-01-2020 11:37-0500 BMI (Body Mass Index) 23.63 kg/m2 [address] [facility] [place] 09-01-2020 11:37-0500 Body Temperature 97 [degF] [address] [facility] [facility] [place] [facility] [place] 09-01-2020 11:37-0500 Body weight 70.[address] , [place] 09-01-2020 11:37-0500 BP Diastolic 65 mm[Hg] [address] , [place] 09-01-2020 11:37-0500 BP Systolic 135 mm[Hg] [address] , [place] 09-01-2020 11:37-0500 Height 172.7 cm Sta 2 [facility] , [place] 09-01-2020 11:37-0500 Pulse (Heart Rate) 62 /min Sta 2 [facility], [place] 09-01-2020 11:37-0500 Pulse Oximetry 97 % Sta 2 [facility] , [place] 09-01-2020 11:37-0500 Respiratory Rate 16 /min Sta 2 [facility] [place] Encounters Encounter Date Encounter Type Care Provider Facility Start: 01-24-2024 End: 01-24-2024 ambulatory [facility] Not Available Start: 01-22-2024 End: 01-22-2024 ambulatory [facility] Not Available Start: 01-17-2024 End: 01-17-2024 ambulatory [facility] Not Available Start: 01-15-2024 End: 01-15-2024 ambulatory [facility] Not Available Start: 01-10-2024 End: 01-10-2024 ambulatory LUKE GUZMAN Not Available Start: 01-08-2024 End: 01-08-2024 ambulatory BARBY J INDU Not Available Start: 01-03-2024 End: 01-03-2024 ambulatory LUKE GUZMAN Not Available Start: 01-01-2024 End: 01-01-2024 ambulatory BARBY J INDU Not Available Start: 12-30-2023 End: 12-30-2023 ambulatory LUKE GUZMAN Not Available Start: 12-27-2023 End: 12-27-2023 ambulatory BARBY J INDU Not Available Start: 12-26-2023 End: 12-27-2023 ambulatory SANDRA T BURR Not Available Start: 12-26-2023 End: 12-26-2023 ambulatory LUKE GUZMAN Not Available Start: 12-20-2023 End: 12-20-2023 ambulatory LUKE GUZMAN Not Available Start: 12-18-2023 End: 12-19-2023 ambulatory BARBY J INDU Not Available Start: 12-16-2023 End: 12-16-2023 ambulatory BARBY J INDU Not Available Start: 12-13-2023 End: 12-13-2023 ambulatory BARBY J INDU Not Available Start: 12-10-2023 End: 12-10-2023 ambulatory BARBY GRIGGS Not Available Start: 12-04-2023 End: 12-04-2023 ambulatory SANDRA BURR Not Available Start: 11-27-2023 End: 11-28-2023 ambulatory SANDRA BURR Not Available Start: 11-22-2023 End: 11-22-2023 ambulatory CHON Yadira MINH [facility] Start: 11-19-2023 End: 11-22-2023 ambulatory [facility] Start: 11-19-2023 End: 11-21-2023 Evaluation and management of inpatient [facility] Start: 11-11-2023 End: 11-11-2023 ambulatory MC OSMAN Not Available Start: 11-08-2023 End: 11-09-2023 ambulatory [facility] Start: 11-08-2023 Encounter for other preprocedural examination [facility] Start: 11-08-2023 End: 11-08-2023 Patient encounter procedure [facility] Pre-Admission Testing 1 [facility] - Pre Admit Comment on above: Coronary artery dise ase involving [place] coronary artery of [place] heart without angina pectoris (Primary Dx); Preop examination; Urinary frequency; Hypertension, unspecified type Start: 11-08-2023 End: 11-08-2023 Preprocedural examination done Pm [address] [facility] Start: 10-23-2023 End: 10-24-2023 ambulatory CarolynJUAN CARLOS Not Available Start: 10-23-2023 End: 10-23-2023 Follow-up encounter Carolyn Alas DO Work Phone: [facility] Comment on above: Primary osteoarthrit is of left knee (Primary Dx); Chronic pain of left knee Start: 09-02-2023 End: 09-02-2023 ambulatory SANDRA BURR Not Available Start: 02-13-[address] CHARITY YIN . Facili ty:[facility] Start: 11-27-2022 End: 03-15-[address] CHARITY YIN . Facility: Start: 11-19-2022 End: 11-20-[address] CHARITY YIN . Facility:[facility] Start: 11-16-2022 End: 11-16-[address] CHARITY YIN . Facility:[facility] Start: 11-14-2022 End: 11-15-[address] CHARITY YIN . Facility:[facility] Start: 09-11-2022 End: 09-11-[address] CHARITY YIN . Facility:[facility] Start: 07-05-2022 End: 07-06-2022 ambulatory JEANNIE [facility] Start: 09-20-2020 End: 09-22-2020 Evaluation and management of inpatient [facility] Start: 09-20-2020 End: 09-22-2020 Evaluation and management of inpatient Kareem Diaz Work Phone: [facility] Comment on above: Acute postoperative pain (Primary Dx); Localized osteoarthritis of right knee Start: 09-14-2020 End: 09-15-2020 Patient encounter procedure [facility] Start: 09-14-2020 End: 09-14-2020 Subsequent hospital visit by physician Sarah Beth Covid Screening Schedule [facility] Comment on above: Preop testing (Prima ry Dx) Start: 09-01-2020 End: 09-06-2020 Patient encounter procedure [facility] Start: 09-01-2020 End: 09-05-2020 Subsequent hospital visit by physician Brandie Diggs 2 [facility] PRE-ADMIT TESTING Start: 05-13-2017 End: 05-14-2017 Ambulatory DEFAULT PHYSICIAN Facility:[facility] Procedures Date Procedure Procedure Detail Performing Clinician Start: 11-08-2023 Antibody screen [facility] 1 Start: 10-23-2023 Radiologic examinati on knee 1/2 views Jr. Juan Carlos Alas DO Work Phone: Start: 11-14-[address] LIBERTAD YIN . Comment on above: Performed By: #### V ITAD, PSASC ####[place] [address]Dr. Ankit Peters Start: 09-22-2020 Basic metabolic pane l calcium total Adali Murillo Work Phone: Start: 09-22-2020 Blood count complete auto&auto difrntl wbc Adali Murillo Work Phone: Start: 09-20-2020 End: 09-20-2020 Arthrp kne condyle&platu medial&lat compartments Kareem Diaz Work Phone: Start: 09-14-2020 COVID-19 Hai Jau regui Work Phone: Start: 09-01-2020 Blood count [...] Tezera Work Phone: Start: 09-01-2020 EKG REPORT Hpf Scanni ng Start: 07-29-2020 History of coronary artery bypass grafting History of coronary artery bypass surgery Jr. Alas DO Work Phone: Plan of Treatment Date Care Activity Detail Author Start: 01-11-2030 DTaP,Tdap and Td Vaccines (2 - Td or Tdap) DTaP,Tdap and Td Vaccines (2 - Td or Tdap) [facility] Start: 01-11-2030 DTaP/Tdap/Td vaccine (2 - Td) DTaP/Tdap/Td vaccine (2 - Td) [place] Start: 11-08-2024 Adult BMI Screening Adult BMI Screen ing [facility] Start: 11-08-2024 Tobacco Screening Tobacco Screening [facility] Start: 11-19-2023 End: 11-19-2023 Admission to same day surgery center 11/19/2023 11:00 AM EST - 11/19/2023 2:00 PM EST Surgery [facility] [address] [place] [id number] Juan Carlos Alas Jr., DO [address] [facility] [address] [place] [address] REPLACEMENT TOTAL JOINT KNEE [00242 (CPT )] [facility] Comment on above: REPLACEMENT TOTAL INOCENCIA INT KNEE [04495 (CPT )] Start: 11-19-2023 End: 11-19-2023 Anesthesia consultation 11/19/2023 11:00 AM EST Anesthesia Event [facility] [address] [place] [id number] Chon Wilkinson, DO [address] [place] [address] [facility] Start: 11-19-2023 End: 11-19-2023 Arthrp kne condyle&platu medial&lat compartments REPLACEMENT TOTAL JOINT KNEE left knee degenerative joint disease, right knee adhesive capsulitis 11/19/2023 11:00 AM EST [facility] Start: 11-19-2023 End: 11-19-2023 Manipulation knee joint under general anesthesia MANIPULATION KNEE left knee degenerative joint disease, right knee adhesive capsulitis 11/19/2023 11:00 AM EST [facility] Start: 11-19-2023 Subsequent hospital visit by physician 11/19/2023 11:00 AM EST Hospital Encounter [facility] [address] [place] [address] Juan Carlos Alas Jr., DO [address] [place] [address] [facility] Start: 11-08-2023 End: 11-05-2024 XR Femur and Tibia Views for leg length [facility] Work Phone: Comment on above: Expected: 11/08/2023 , Expires: 11/05/2024 Start: 11-06-2023 End: 11-06-2023 Patient encounter procedure 11/06/2023 8:00 AM EST Office Visit [facility] [address] [facility] [place] [address] Jr. Juan Carlos Alas, DO [address] [place] [address] [facility] Start: 05-17-2023 COVID-19 Vaccine ( season) COVID-19 Vaccine ( season) [facility] Start: 05-17-2023 Influenza vaccination N [facility] Start: 09-20-2020 End: 09-20-2020 Hospital Encounter [facility] Comment on above: RIGHT KNEE TOTAL ART HROPLASTY- BIOMET Start: 09-14-2020 End: 09-14-2020 Appointment 09/14/2020 Appointment Lab [facility] Covid Screening Start: 09-10-2020 End: 09-10-2021 COVID-19 COVID-19 Lab Routine Preop testing Expected: 09/10/2020, Expires: 09/10/2021 [facility] MAISHA AGUILAR Comment on above: Expected: 09/10/2020 , Expires: 09/10/2021 Start: 05-20-2018 Pneumococcal Vaccine : 65+ Years (2 - PCV) Pneumococcal Vaccine: 65+ Years (2 - PCV) [facility] Start: 2015 Fall Risk Screening Fall Risk Screen ing [facility] Start: 2000 Administration of varicella zoster vaccine Zoster (Shingles) Vaccine (1 of 2) [facility] Start: 2000 Screening for malign ant neoplasm of colon Colon cancer screen colonoscopy [place], [place] Start: 2000 Shingles Vaccine (1 of 2) Shingles Vaccine (1 of 2) [place] Start: 1962 Depression Screening Depression Scre ening [facility] Start: 1960 Lipid panel Lipid screen [place], [place] Start: 1950 Abdominal aortic aneurysm screening AAA screen [place] Start: 1950 Hepatitis C screening Hepatitis C sc reen [place] Start: 1950 Screening for malign ant neoplasm of colon [facility] Basic metabolic 2000 panel Basic Metabolic Panel Lab STAT Tomorrow AM until discontinued starting 09/22/2020, 1 completed [place] Comment on above: Tomorrow AM until di scontinued starting 09/22/2020, 1 completed CBC Auto Differential CBC Auto D ifferential Lab STAT Tomorrow AM until discontinued starting 09/22/2020, 1 completed [place] Comment on above: Tomorrow AM until di scontinued starting 09/22/2020, 1 completed End: 11-05-2024 Crossmatch RBC Crossmatch RBC Blood Bank Routine Coronary artery disease involving [place] coronary artery of [place] heart without angina pectoris Preop examination Urinary frequency Hypertension, unspecified type 1 Occurrences starting 11/05/2023 until 11/05/[address] [facility] Comment on above: 1 Occurrences starti ng 11/05/2023 until 11/05/2024 Oxygen therapy [[facility] [place] Initiate Oxygen Therapy Protocol Respiratory Care Routine Daily until discontinued starting 09/20/2020 [place] Comment on above: Daily until disconti nued starting 09/20/2020 Spirometry panel Incentive ileana metry Respiratory Care Routine Every 2hr while awake until discontinued starting 09/20/2020 [facility] [place] Comment on above: Every 2hr while awak e until discontinued starting 09/20/2020 Immunizations Immunization Date Immunization Notes Care Provider Keron de oliveira 07-09-2022 influenza virus vaccine, unspecified formulation Jr. Alas DO Work Phone: [facility] 01-12-2020 tetanus toxoid, redu elyssa diphtheria toxoid, and acellular pertussis vaccine, adsorbed [facility] 1 [facility] Payers Date Payer Category Payer Unknown 2005 Medicare [id number] 1959 Medicare [id number] 1959 Unknown [id number] 1. 2.840.286457.1.13.239.2.7.3.486116.315 1950 Unknown [id number] 2.16.8 40.1.626958.3.579.2.177 1950 Unknown [id number] 2.16.8 40.1.218266.3.579.2.177 1950 Unknown [id number] 2.16.8 40.1.786887.3.579.2.177 1950 Unknown [id number] 2.16.84 0.1.193623.3.579.2.593 1950 Unknown [id number] 2.16.84 0.1.629301.3.579.2.593 1950 Unknown [id number] 2.16.84 0.1.709015.3.579.2.593 1950 Unknown [id number] 2.16.84 0.1.510091.3.579.2.593 1950 Unknown [id number] 2.16.84 0.1.127546.3.579.2.593 1950 Unknown [id number] 2.16.84 0.1.937067.3.579.2.593 1950 Unknown [id number] 2.16.8 40.1.160126.3.579.2.1286 1950 Unknown [id number] 2.16.8 40.1.089823.3.579.2.1286 1950 Unknown [id number] 2.16.8 40.1.753457.3.579.2.1286 1950 Unknown [id number] 2.16.8 40.1.733837.3.579.2.1286 1950 Unknown [id number] 2.16.8 40.1.747510.3.579.2.1286 1950 Unknown [id number] 2.16.8 40.1.454742.3.579.2.1286 1950 Unknown [id number] 2.16.8 40.1.418794.3.579.2.1286 1950 Unknown [id number] 2.16.8 40.1.444982.3.579.2.1286 1950 Unknown [id number] 2.16.8 40.1.570811.3.579.2.1286 1950 Unknown [id number] 2.16.84 0.1.677643.3.579.2.1259 1950 Unknown [id number] 2.16.84 0.1.609995.3.579.2.1259 1950 Unknown [id number] 2.16.84 0.1.767601.3.579.2.1259 1950 Unknown [id number] 2.16.84 0.1.065933.3.579.2.1259 1950 Unknown [id number] 2.16.84 0.1.604834.3.579.2.1259 1950 Unknown [id number] 2.16.84 0.1.273517.3.579.2.1259 1950 Unknown [id number] 2.16.84 0.1.819172.3.579.2.1259 1950 Unknown [id number] 2.16.84 0.1.580382.3.579.2.1259 1950 Unknown [id number] 2.16.84 0.1.245354.3.579.2.1259 1950 Unknown [id number] 2.16.84 0.1.048204.3.579.2.1259 1950 Unknown [id number] 2.16.84 0.1.826614.3.579.2.1259 1950 Unknown [id number] 2.16.84 0.1.611329.3.579.2.1259 1950 Unknown [id number] 2.16.84 0.1.775246.3.579.2.1259 1950 Unknown [id number] 2.16.84 0.1.678593.3.579.2.1259 1950 Unknown [id number] 2.16.84 0.1.696019.3.579.2.1259 1950 Unknown [id number] 2.16.84 0.1.570002.3.579.2.1259 1950 Unknown [id number] 2.16.84 0.1.127008.3.579.2.1259 1950 Unknown [id number] 2.16.84 0.1.709613.3.579.2.1259 1950 Unknown [id number] 2.16.84 0.1.574566.3.579.2.1259 1950 Unknown [id number] 2.16.84 0.1.171793.3.579.2.1259 1950 Unknown [id number] 2.16.84 0.1.556396.3.579.2.1259 1950 Unknown [id number] 2.16.84 0.1.603337.3.579.2.1259 1950 Unknown [id number] 2.16.84 0.1.822914.3.579.2.1259 1950 Unknown [id number] 2.16.84 0.1.538931.3.579.2.1259 1950 Unknown [id number] 2.16.840 .1.970677.3.579.2.1259 Social History Date Type Detail Facility Start: 09-01-2020 End: 03-22-2023 Tobacco smoking status NHIS Former smoker [place] End: 03-18-1995 History of tobacco use Current smoker [place] Start: 09-01-2020 End: 09-20-2020 Tobacco use and exposure Former user [place] Start: 09-01-2020 End: 11-08-2023 Alcohol intake Current non-drinker of alcohol (finding) [place] Start: 1950 Sex Assigned At Not on file [place] Exposure to SARS-CoV -2 (event) Not sure [place] History of tobacco use Cigarette Smoker [facility] Start: 03-22-2023 End: 05-22-2023 Tobacco use and exposure Smokeless tobacco non-user [facility] Start: 10-23-2023 Alcohol intake Ex-drinker (finding) [facility] Start: 10-03-2020 End: 10-23-2023 History of Social function [facility] Start: 10-03-2020 End: 10-23-2023 Tobacco use panel [facility] Frequency of Alcohol Consumption Never [facility] Start: 1950 Sex Assigned At Male [facility] Start: 01-08-2022 Gender identity Identifies as male gender (finding) [facility] Start: 01-08-2022 Sexual orientation Heterosexual (finding) [facility] Medical Equipment Procedure Code Equipment Code Equipment Origin al Text Equipment Identifier Dates [place] Sut Healicoil W/3 Ultrabraid 5.5mm [id number] Start: 04-01-2018 [place] Sut Healicoil W/3 Ultrabraid 5.5mm [id number] Start: 04-01-2018 [place] S[place] Healicoil W/3 Ultrabraid 5.5mm [id number] Start: 04-01-2018 Dup Use [id number] Impl Knee Psn All Poly Pat Ply [...] Dia2.5mm Knee Full Thrd Hex Fem Persona [id number] Start: 09-20-2020 Instructions 11-08-2023 Patient Instructions Note Date & Type Note Facility 11-08-2023 Instructions Nori Gilman RN - 11/08/2023 9:00 AM EST Preoperative Education Checklist- General Surgery date: 11/19/23 Surgery time: 11a Arrival time: 9a 1. Bring a photo ID and your insurance card with you the day of surgery. You will check in at the main lobby of the [facility]- registration desk is straight ahead as soon as you walk in. Tell them you are here for surgery. 2. If you have a Living Will/Durable Power of Pediatric Cns for Health Care that is not on [...] after you have bathed. 5. NO nail luxembourger/acrylic on at least one finger. If you are having a hand, wrist or foot surgery then all nail luxembourger and artificial/acrylic nails must be removed from [...] please call the Preadmission Testing office at [phone], Mon.-Fri. 7 a.m.-3 p.m. Leave a voicemail [...] with your doctor. documented in this encounter [facility] History of Present illness Narrative 10-23-2023 Jr. 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 PT WAS SCHEDULED FOR LT TKA AND RT KNEE ЕКАТЕРИНА IN THE PAST-CX DUE TO CHEST PAIN WHILE IN [place] AND SINUS INFECTION PT SAW DR APPIAH 03/2023 (DANCE DIRECTOR [facility] ); CLEARANCE UNDER MEDIA XRAY LT KNEE TODAY CHANGE 10/23/23 XRAY LT KNEE EXA 12/12/22 XRAY LT KNEE [facility] 11/19/22 MRI LT KNEE [facility] 11/27/22 NO PAIN MANAGEMENT DEPO INJECTION 06/05/23, 09/02/[address] YIN ~12/2022 NO MDP/PREDNISONE PT C/O INSTABILITY WITH THE LT KNEE- PAIN IS CONSTANT- PAIN POSTERIOR KNEE- +SWELLING- +VICODIN PER DR YNI- +STIFFNESS WITH PROLONG SITTING HX RT TKA [...] cetirizine (ZYRTEC) 10 mg, Oral, Daily HYDROcodone-acetaminophen ([place]) 5-325 MG tablet 1-2 tablets Orally every [...] requiring urgent evaluation. documented in this encounter [facility] Clinical Note 02-13-2023 Note Date & Type [...] evidence of significant abnormalities. Electronically authenticated by: GENYN DAVIS Date: 2023-02-13 14:02 [facility] Clinical Note 11-19-2022 Note Date & [...] authenticated by: ANI HARDING Date: 2022-11-19 15:22 [facility] Progress note 07-05-2022 Note Date & [...] pain at that time. 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 year old [...] be an additional personal documentation from me. [facility] Evaluation note Note Date & Type Note Facility Evaluation note Diagnosis Primary osteoarthritis of left knee- Primary Chronic pain of left knee documented in this encounter [facility] Evaluation note Note Date & Type Note Facility Evaluation note Diagnosis Coronary artery disease involving [place] coronary artery of [place] heart without angina pectoris- Primary Preop examination Unspecified pre-operative examination Urinary frequency Hypertension, unspecified type Coronary artery disease involving [place] coronary artery of [place] heart without angina pectoris Preop examination Unspecified pre-operative examination Urinary frequency Hypertension, unspecified type documented in this encounter [facility] Summary Purpose Family History No Family History Records FoundNo Family History Records FoundNo Family History Records FoundNo Family History Records FoundNo Family History Records FoundNo Family History Records Found Advance Directives No Advanced Directives Records FoundDocuments on File Type Date Recorded Patient Valve Assembler Expl anation ACP-Advance Directive ACP-Power of Pediatric Cns Documents on File Type Date Recorded Patient Valve Assembler Expl anation ACP-Advance Directive ACP-Power of Pediatric Cns Latest Code Status on File Code Status [...] SNF and will dishcharge to home with [facility]. , Hai. Notified. * Carolina Ervin, PT - 09/22/2020 9:48 AM EST Physical Therapy Facility/Department: [facility] Daily Treatment Note NAME: Levon Bond : 1950 Date of Service: 09/22/2020 Discharge Recommendations: Subacute/Halfway Facility(if declining, recommend PT) RN reports patient [...] of Anginal pain (HCC), Arthritis, Fibromyalgia, Hyperlipidemia, [place] (myocardial infarction) (HCC), Mood swings, Prolonged emergence [...] to only perform slight LAQ. OutComes Score [facility] Score [facility] Inpatient Mobility Raw Score : 17 (09/22/20946) [facility] Inpatient T-Scale Score : 42.13 (09/22/20946) Mobility Inpatient CMS 0-100% Score: 50.57 (09/22/20946) Mobility Inpatient [facility] G-Code Modifier : CK (09/22/20946) Goals Short term goals Time Frame for Short term goals: 5 visits: Short term goal 1: Pt. to be indep with bed mob. using sheet as leg creative services director for Rt. LE as needed Short term [...] that discharge plan is Home. Agency/Facility chosen: [facility] Awaiting pre-certification no Anticipated discharge date: [...] MD - 09/22/2020 8:09 AM EST [facility] Office: [phone] Dwayne Orourke DO, Sabino Archibald DO, Lam Mayo DO, Momo Aguilera DO, Tyson Warner MD, Amie Haque MD, Fernando Vera MD, Deanne Clay MD, Twin Be MD, Nadeen Amezcua MD, MD Ashia, Haris Pacheco MD, Shanae Ramirez MD, Sandoval Whitaker DO, Liane Carvajal MD, Beht Gordillo MD, Homar Dennis DO, Sofiya Guzmán MD, Nat Amezcua DO, Spencer Castellano MD, MD Juan, Donya Monsalve, SAADIA, Adali Murillo, AMERICAN INDIAN STUDIES PROFESSOR, Bambi Muhammad, AMERICAN INDIAN STUDIES PROFESSOR, Jennifer Keller, IRISH MOSS GATHERER,Devyn Trejo, AMERICAN INDIAN STUDIES PROFESSOR, Ladi Pedersen, AMERICAN INDIAN STUDIES PROFESSOR, Deyanira Leo, AMERICAN INDIAN STUDIES PROFESSOR, Mary Jane Bauman, AMERICAN INDIAN STUDIES PROFESSOR, Kuldip Knight CNP, Charli Cueva PA-C, Heidi Foote, ZACH, Charline Swanson, SAADIA, Adelina Adamson, SAADIA, Madison Maya, SAADIA, Gemma Lopez CNP, Lory Schrader, SAADIA [facility] IN-PATIENT SERVICE [facility] Progress Note 09/22/2020 8:09 AM Name: Levon Bond Acct: [id number] Room: IP Day: 2 Admit Date: 09/20/2020 [...] Infusions: sodium chloride 125 mL/hr at 09/20/20 0979 PRN Meds: calcium carbonate, nitroGLYCERIN, sodium chloride flush, promethazine OR ondansetron,magnesium hydroxide, oxyCODONE OR oxyCODONE, HYDROmorphone OR HYDROmorphone, chlordiazePOXIDE Data: Past Medical History: has a past medical history of Anginal pain (HCC), Arthritis, Fibromyalgia, Hyperlipidemia, [place] (myocardial infarction) (HCC), Mood swings, Prolonged emergence [...] No results for input(s): PROT, LABALBU, LABA1C, Z3ASOHZ, I6TEFIN, FT4, TSH, AST, ALT, LDH, GGT, ALKPHOS, LABGGT, BILITOT, BILIDIR, AMMONIA, AMYLASE, LIPASE, LACTATE, CHOL, HDL, LDLCHOLESTEROL, CHOLHDLRATIO, TRIG, VLDL, GHH88PU, PHENYTOIN, PHENYF, URICACID, POCGLU in the last 72 hours. ABG:No results found for: POCPH, PHART, PH, POCPCO2, UFE1IZL, PCO2, POCPO2, PO2ART, PO2, POCHCO3, PMD9VZF, HCO3, NBEA, PBEA, BEART, BE, THGBART, THB, PHW9VRS, HHAE7OQU, B9LRHROP, O2SAT, FIO2 No results found for: SPECIAL [...] Hardin RN - 09/22/2020 3:51 AM EST Real Estate Operations Manager noticed more redness on the outer part [...] Discharge Recommendations: Home with Home health PT, Subacute/Halfway Facility, Continue to assess pending progress PT [...] of Anginal pain (HCC), Arthritis, Fibromyalgia, Hyperlipidemia, [place] (my[place] infarction) (HCC), Mood swings, Prolonged emergence [...] out of bed. OutComes Score AM-PAC Score [facility] Inpatient Mobility Raw Score : 17 (09/21/201510) [facility] Inpatient T-Scale Score : 42.13 (09/21/201510) Mobility Inpatient CMS 0-100% Score: 50.57 (09/21/201510) Mobility Inpatient [facility] G-Code Modifier : CK (09/21/201510) Goals Short term goals Time Frame for Short term goals: 5 visits: Short term goal 1: Pt. to be indep with bed mob. using sheet as leg creative services director for Rt. LE as needed Short term [...] AM EST CLINICAL PHARMACY NOTE: MEDS TO [facility] Patient?: No Total # of [...] of Anginal pain (HCC), Arthritis, Fibromyalgia, Hyperlipidemia, [place] (my[place] infarction) (HCC), Mood swings, Prolonged emergence [...] with bed mob. using sheet as leg creative services director for Rt. LE as needed Short term [...] MD - 09/21/2020 9:10 AM EST [facility] Office: [phone] Dwayne Orourke DO, Sabino Archibald DO, Lam Mayo DO, Momo Aguilera DO, Tyson Warner MD, Amie Haque MD, Fernando Vera MD, Deanne Clay MD, Twin Be MD, Nadeen Amezcua MD, MD Ashia, Haris Pacheco MD, Shanae Ramirez MD, Sandoval Whitaker DO, Liane Carvajal MD, Beth Gordillo MD, Homar Dennis DO, Sofiya Guzmán MD, Nat Amezcua, DO, Spencer Castellano MD, MD Juan, Donya Monsalve, AMERICAN INDIAN STUDIES PROFESSOR, Adali Murillo, AMERICAN INDIAN STUDIES PROFESSOR, Bambi Muhammad, AMERICAN INDIAN STUDIES PROFESSOR, Jennifer Keller, IRISH MOSS GATHERER,Devyn Trejo, AMERICAN INDIAN STUDIES PROFESSOR, Ladi Pedersen, AMERICAN INDIAN STUDIES PROFESSOR, Deyanira Leo, AMERICAN INDIAN STUDIES PROFESSOR, Mary Jane Bauman, AMERICAN INDIAN STUDIES PROFESSOR, Kuldip Knight, AMERICAN INDIAN STUDIES PROFESSOR, Charli Cueva PA-C, Heidi Foote, ZACH, Charline Swanson, AMERICAN INDIAN STUDIES PROFESSOR, Adelina Adamson, AMERICAN INDIAN STUDIES PROFESSOR, Madison Maya, AMERICAN INDIAN STUDIES PROFESSOR, Gemma Lopez, AMERICAN INDIAN STUDIES PROFESSOR, Lory Schrader, AMERICAN INDIAN STUDIES PROFESSOR [facility] IN-PATIENT SERVICE [facility] Progress Note 09/21/2020 9:10 AM Name: Levon Bond Acct: [id number] Room: IP Day: 1 Admit Date: 09/20/2020 [...] Infusions: sodium chloride 125 mL/hr at 09/20/20 4799 PRN Meds: nitroGLYCERIN, sodium chloride flush, promethazine OR ondansetron, magnesium hydroxide, oxyCODONE OR oxyCODONE, HYDROmorphone OR HYDROmorphone, chlordiazePOXIDE Data: Past Medical History: has a past medical history of Anginal pain (HCC), Arthritis, Fibromyalgia, Hyperlipidemia, [place] (myocardial infarction) (HCC), Mood swings, Prolonged emergence [...] RDW, PLT, MPV, SEDRATE, CRP, INR, DDIMER, MN4DLBBA, LABABSO in the last 72 hours. Invalid input(s): PT Chemistry:No results for input(s): NA, K, CL, CO2, GLUCOSE, BUN, CREATININE, MG, ANIONGAP, LABGLOM,GFRAA, CALCIUM, CAION, PHOS, PSA, PROBNP, TROPHS, CKTOTAL, CKMB, CKMBINDEX, MYOGLOBIN, DIGOXIN, LACTACIDWB in the last 72 hours.No results for input(s): PROT, LABALBU, LABA1C, V9CCUQW, T9RFYIO, FT4, TSH, AST, ALT, LDH, GGT, ALKPHOS, LABGGT, BILITOT, BILIDIR, AMMONIA, AMYLASE, LIPASE, LACTATE, CHOL, HDL, LDLCHOLESTEROL, CHOLHDLRATIO, TRIG, VLDL, API85WY, PHENYTOIN, PHENYF, URICACID, POCGLU in the last 72 hours. ABG:No results found for: POCPH, PHART, PH, POCPCO2, RCU2LUM, PCO2, POCPO2, PO2ART, PO2, POCHCO3, IKA7BIG, HCO3, NBEA, PBEA, BEART, BE, THGBART, THB, LVP8SAR, HROB8BYC, A7KGJRMO, O2SAT, FIO2 No results found for: SPECIAL [...] MD - 09/21/2020 7:50 AM EST Ortho [id number] Discussion of Medical Necessity for Use of [...] of Anginal pain (HCC), Arthritis, Fibromyalgia, Hyperlipidemia, [place] (myocardial infarction) (HCC), Mood swings, Prolonged emergence [...] Ambulation Assistance: Independent Transfer Assistance: Independent Active Bolter Helper: Yes Mode of Transportation: Car Occupation: Retired Type of occupation: 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 [...] with bed mob. using sheet as leg creative services director for [employer] as needed Short term [...] discipline's goals. ABIGAIL MOLINA, PT * Chanel Saini OT - 09/20/2020 5:26 PM EST Occupational [...] of Anginal pain (HCC), Arthritis, Fibromyalgia, Hyperlipidemia, [place] (myocardial infarction) (HCC), Mood swings, Prolonged emergence [...] Ambulation Assistance: Independent Transfer Assistance: Independent Active Bolter Helper: Yes Mode of Transportation: Car Occupation: Retired Type of occupation: 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 Does play [employer] for a living now. Leisure & Hobbies: [...] Strength: WFL LUE Strength Comment: B UE's 5/5 RUE Strength Gross RUE Strength: WFL Plan Plan Times per week: 5-6 x/week, 1-2x/day Current Treatment Recommendations: Strengthening, Balance Training, Functional Mobility Training, Endurance Training, Safety Education & Training, Self-Care / ADL, Patient/Caregiver Education & Training, Equipment Evaluation, Education, & procurement, Positioning Goals Short term goals Time Frame for Short term goals: by discharge, pt will Short term goal 1: demo S/[place] with ADL transfers and functional mob with good safety/pacing and approp AD/DME Short term goal 2: demo S/[place] with toileting routine Short term goal 3: [...] plan is Home. Agency/Facility chosen: [facility] Awaiting pre-certification no Anticipated discharge date: 09/21/2020 [...] Coronary atherosclerosis of unspecified type of vessel, [place] or graft Reason for Referral Status Reason Specialty Diagnoses / Procedures Referred By Contact Referred To Contact Open Patient Preference Physical Therapy Diagnoses Acute postoperative pain Localized osteoarthritis of right knee Kareem Diaz MD [address] [place] [address] Specialty Diagnoses / Procedures Referred By Contac t Referred To Contact Diagnoses Coronary artery disease involving [place] coronary artery of [place] heart without angina pectoris Preop examination Urinary frequency Hypertension, unspecified type Procedures ECG 12 lead Juan Carlos Alas Jr., DO [address] [id number] Referral ID Status Reason Start Date Expiration Date V isits Requested Visits Authorized [id number] Pending Review 11/05/2023 11/04/2024 1 1 Hospital Course * Kareem Diaz MD - 09/21/2020 7:53 AM EST Physician Discharge Summary Patient ID: Levon Bond [id number] y.o. 1950 Admit date: 09/20/2020 Discharge date and time: No discharge date for patient encounter. Admitting Physician: Kareem Diaz MD Discharge Physician: Kareem Diaz MD Admission Diagnoses: Localized osteoarthritis of right knee [M17.11] Discharge Diagnoses: Localized osteoarthritis of right knee [M17.11] Hospital Course: Right total knee arthroplasty Consults: Hospitalist Condition: Stable Treatments: Occupational therapy and physical therapy Disposition: Home Patient Instructions: Doc Levon Home Medication Instructions [id number] Printed on:09/21/20 0753 Medication Information aspirin 325 MG EC tablet [...] Extended Emergency Contact Information Primary Emergency Contact: [facility] Relation: Spouse Past Surgical History: Past Surgical History: Procedure Laterality Date ANKLE SURGERY CARDIAC CATHETERIZATION 12/19/2015 double bypass CARPAL TUNNEL RELEASE Bilateral CERVICAL FUSION COLONOSCOPY CORONARY ARTERY BYPASS GRAFT 2016 Double bypass LEG SURGERY due to accident MA SHLDR ARTHROSCOP,SURG,W/ROTAT CUFF REPR Left 04/01/2018 SHOULDER ARTHROSCOPY LEFT WITH ROTATOR CUFF REPAIR - KAMARA & NEPHEW performed by Kareem Diaz MD at [facility] OR ROTATOR CUFF REPAIR Left 04/01/2018 with arthroscopy TOTAL KNEE ARTHROPLASTY Right 09/20/2020 RIGHT KNEE TOTAL ARTHROPLASTY performed by Kareem Diaz MD at [facility] OR TRANSESOPHAGEAL ECHOCARDIOGRAM 12/19/2015 Immunization History: [...] Independent Dressing Assisted Toileting Independent Feeding Independent Dental Surgery Doctor Independent Med Delivery whole Wound Care Documentation [...] Readmission: 6 Discharging to Facility/ Agency Name: [facility] Details FAX [address] [place] [address] Dialysis Facility (if applicable) Name: Address: Dialysis Schedule: Phone: Fax: Clinical Technologist/Art Manager signature: PHYSICIAN SECTION Prognosis: Good Condition at [...] THE ORTHOPEDIC COORDINATOR: RAJ FINCH RN, BSN [phone] [email or web address] YOU MAY ALSO MESSAGE ME ON GET [...] orthopedic appointment with surgeon Discharge instructions video: [email or web address] Keep it Clean Post-Operative Home instructions These instructions are to help you have the best possible recovery after your surgical procedure. [facility] is here to support you. If you have questions, call [phone] Saturday through Saturday from 7:30AM to 8:30PM to speak to a nurse. If you need to speak to someone outside of these hours, call your physician. Incision Do s and Don ts Do wash hands before and after dressing changes or when you have had any contact with your incision. Use hand quality control lab tech or antibacterial soap. Do keep your incision [...] to your discharge paperwork for further instructions [employer]: A waterproof barrier to [...] Everywhere. * TKR (Total Knee Replacement): Post-op (Afghan) * TKR (Total Knee Replacement): Rehabilitation (Afghan) * Constipation (Afghan) * DVT (Deep Vein Thrombosis): General Info (Afghan) * acetaminophen and oxycodone (Afghan) * aspirin (oral) (Afghan) * docusate and senna (Afghan) documented in this encounter Additional Source Comments (unrecognized sect ion and content) No Status Records FoundNo Status Records FoundNo Status Records FoundNo Status Records FoundNo Status Records FoundNo Status Records Found INFORMATION SOURCE (unrecogn ized section and content) DATE CREATED AUTHOR 03/12/2018 [facility] DATE CREATED AUTHOR AUTHOR'S ORGANIZ ATION 09/23/2020 [facility] DATE CREATED AUTHOR AUTHOR'S ORGANIZ ATION 07/09/2022 [facility] DATE CREATED AUTHOR AUTHOR'S ORGANIZ ATION 02/22/2023 [facility] DATE CREATED AUTHOR AUTHOR'S ORGANIZ ATION 11/23/2023 [facility] DATE CREATED AUTHOR AUTHOR'S ORGANIZ ATION 01/26/2024 [facility] EPIC Reason for Visit (unrecogniz ed section and content) Status Reason Specialty Diagnoses / Procedures Referre d By Contact Referred To Contact Diagnoses Osteoarthritis of right knee DX OA RIGHT KNEE Procedures MA TOTAL KNEE ARTHROPLASTY RIGHT KNEE TOTAL ARTHROPLASTY- BIOMET Kareem Diaz MD [address] [place] [address] [facility] Reason Comments Pain Ordered Prescriptions (unrec [...] Care Teams (unrecognized sec tion and content) Respiratory Director Relationship Specialty Start Date End Date Charity Yin MD [address] [place] [id number] PCP - General Family Medicine 01/30/23 Respiratory Director Relationship Specialty Start Date End Date Charity Yin MD [address] [place] [id number] PCP - General 05/12/18 FOR RECORDS PERTAINING [...] BE BASED ON THE PRIMARY CLINICAL RECORDS. [facility]. provides no warranty or guarantee of the accuracy or completeness of information in this document.
[2024-01-27 11:37] LABS: Thyroid Stimulating Hormone 3.542 uIU/mL (0.358-3.740)
[2024-01-27 12:39] LABS: Free T4 0.89 ng/dL (0.76-1.46)
== END 2024-01-27 10:25 | disposition home or self-care (01) ==
LOC: LAB 10:25
PROVIDERS: PCP Family Medicine; Visit Provider Family Medicine
DX: R53.83 Other fatigue (principal)
CPT/HCPCS: 36415; 84439; 84443; 85025

== ENCOUNTER 2024-02-06 10:39 | Outpatient (OUT) | payer MEDICARE, OTHER, SELFPAY ==
--- NOTE | 2024-02-06 10:44 | VEIN_ITS ---
[address] [id number] Patient Name: AASD BOND MRN: [id number] date: 1950 Sex: M Assigned Patient Location: Current Patient Location: Accession/Order Number: [id number] Exam Date: 02/06/2024 10:44 Report Date: 02/06/2024 14:56 At the request of: CHARITY YIN Procedure: VC SEGMENTAL PRESSURES EXAM: BILATERAL LOWER EXTREMITY ARTERIAL SEGMENTAL PRESSURES HISTORY: I79.3 PVD Peripheral vascular disease Indication: Peripheral vascular disease COMPARISON: None FINDINGS: Segmental pressures presented as follows (right, left) in mmHg. Brachial: 118, 147. Upper thigh: 171, 177. Lower thigh: 180, 183. Calf: 161, 154. DPA: 131, 135. FIXER BOARDING ROOM: 144, 149. 1st Toe: 90, 87 DELMY: 0.98, 1.01 TBI: 0.61, 0.59 The ABIs are normal The TBI's suggest mild arterial disease PVR waveforms: Right leg: Thigh: Blunted systolic peak Above knee: Blunted systolic peak Below knee: Blunted systolic peak Right ankle: Blunted systolic peak Left leg: Thigh: Blunted systolic peak Above knee: Blunted systolic peak Below knee: Blunted systolic peak Right ankle: Blunted systolic peak VEIN/VC SEGMENTAL PRESSURES IMPRESSION: PVR waveforms and TBI suggests mild arterial disease Electronically authenticated by: ANI HARDING Date: 02/06/2024 14:56
== END 2024-02-06 10:40 | disposition home or self-care (01) ==
LOC: VC 10:39
PROVIDERS: PCP Family Medicine; Visit Provider Family Medicine
DX: I73.9 Peripheral vascular disease, unspecified (principal); M25.579 Pain in unspecified ankle and joints of unspecified foot
CPT/HCPCS: 93923

== ENCOUNTER 2024-06-22 11:56 | Emergency (ER) | payer MEDICARE, OTHER, SELFPAY ==
[2024-06-22 12:04] VITALS: BP 170/84; PULSE 55; TEMP 36.6; O2SAT 96; BMI 24.0
--- NOTE | 2024-06-22 12:18 | ED_ITS ---
HPI HPI - General Adult General Chief complaint: Skin/Abscess/Foreign Body Stated complaint: WOUND CHECK, LOWER LEFT EXTREMITY Time Seen by Provider: 06/22/24 12:13 Source: patient Mode of arrival: walk-in Limitations: no limitations History of Present Illness HPI narrative: Patient presenting to the emergency department for evaluation of right lower extremity laceration. Patient states that he was at home in his garage, he banged his leg onto a piece of wood. States that it did not cut through the pants, but it split open his right lower extremity. States happened less than an hour ago. States his tetanus is up-to-date. No other complaints at this time Related Data Home Medications ?Medication ?Instructions ?Recorded ?Confirmed atorvastatin 40 mg tablet 40 mg PO DAILY 06/22/24 06/22/24 cetirizine 10 mg tablet 10 mg PO DAILY 06/22/24 06/22/24 hydrocodone 5 mg-acetaminophen 325 1 tab PO Q4H 06/22/24 06/22/24 mg tablet metoprolol succinate 25 mg 12.5 mg PO Q12H 06/22/24 06/22/24 tablet,extended release 24 hr sildenafil 100 mg tablet 100 mg PO PRN intercourse 06/22/24 trazodone 100 mg tablet 200 mg PO .HS 06/22/24 06/22/24 Allergies Allergy/AdvReac Type Severity Reaction Status Date / Time No Known Drug Allergies Allergy Verified 06/22/24 12:08 Opioid HPI Opioid Management Most Recent Opioid Data: Last Pain Scale 2 06/22/24 12:22 Last ED Pain Assessment 06/22/24 12:21 Review of Systems ROS Narrative Negative unless otherwise stated in the HPI PFSH PFSH Social History Little interest or pleasure in doing things: not at all Feeling down, depressed, or hopeless: not at all Exam Narrative Exam Narrative: nurses note and vital signs reviewed and patient is not hypoxic. Musculoskeletal: The patient has no evidence of calf tenderness, no pitting edema, symmetrical pulses noted bilaterally, 4 cm laceration noted to, curvilinear, no foreign bodies, no tendon, full-thickness Constitutional Vital Signs, click to edit/add: Last Vital Signs Temp 97.9 F 06/22/24 12:04 Pulse 55 L 06/22/24 12:04 Resp 16 06/22/24 12:04 BP 170/84 H 06/22/24 12:04 Pulse Ox 96 10/07/24 12:04 O2 Del Method Room Air 06/22/24 12:04 Course Vital Signs Vital signs: Vital Signs Temperature 97.9 F 06/22/24 12:04 Pulse Rate 55 L 06/22/24 12:04 Respiratory Rate 16 06/22/24 12:04 Blood Pressure 170/84 H 06/22/24 12:04 Pulse Oximetry 96 06/22/24 12:04 Oxygen Delivery Method Room Air 06/22/24 12:04 Temperature 97.9 F 06/22/24 12:04 Pulse Rate 55 L 06/22/24 12:04 Respiratory Rate 16 06/22/24 12:04 Blood Pressure 170/84 H 06/22/24 12:04 Pulse Oximetry 96 06/22/24 12:04 Oxygen Delivery Method Room Air 06/22/24 12:04 Medical Decision Making MDM Narrative Medical decision making narrative: Pt who presented today for laceration. Patient on exam was well appearin. Wound explored, no evidence of foreign body.Patient was neurovascularly intact intact without evidence of tendon involvement. Wound was sutured without difficulty as per primary procedure note. Tdap was already up-to-date. Patient was discharged with follow up in stable condition Advanced guidance has been given. Vss, pex is benign at this time. Pt to fu with pcp 1-2 days for reeval, rter should sx worsen, persist or become worrysome in any way. Pt expressed understanding and agreement with plan of care at this time. Will fu as planned. Pt stable for discharge. Discharge Plan Discharge Chief Complaint: Skin/Abscess/Foreign Body Clinical Impression: Laceration Patient Disposition: Home, Self-Care Time of Disposition Decision: 12:51 Prescriptions / Home Meds: No Action atorvastatin 40 mg tablet 40 mg PO DAILY cetirizine 10 mg tablet 10 mg PO DAILY hydrocodone-acetaminophen 5-325 mg tablet 1 tab PO Q4H metoprolol succinate 25 mg tablet extended release 24 hr 12.5 mg PO Q12H sildenafil 100 mg tablet 100 mg PO PRN (Reason: intercourse) trazodone 100 mg tablet 200 mg PO .HS Print Language: [place] Instructions: Laceration (ED) Additional Instructions: Follow-up with your PCP in the next 1 to 2 days. Return to the emergency department should symptoms worsen or become worrisome in any way.. Follow-up for suture removal in 7 to 10 days as discussed Referrals: Ruddy Salas MD [Primary Care Provider] - 1 week Procedures ED Laceration Laceration Laceration 1: Site: lower extremity Side (if applicable): right Size (cm): 3.5 Description: linear Depth: simple, single layer Anesthetic used: with epi Anesthesia technique: local infiltration Amount (ml): 4 Pre-repair: wound explored, irrigated extensively and deep structures intact Skin layer closed with: other (Nylon) Size (cm): 3-0 Number of sutures: 11 Technique: simple, interrupted
--- OUTSIDE RECORDS SUMMARY | 2024-06-22 12:19 | XMS_ITS | CCD ---
Author Organization [facility]ini[facility] Care Team Providers Care [employer]ator [employer] Name Role Phone PHYSICIAN, DEFAULT Unavailable Unavailable PHYSICIAN, DEFAULT Unavailable Unavailable Charity Yin Primary Care Provider CHARITY YIN Primary Care Unavailable DIAZKAREEM W Referring Unavailable CHARITY YIN Primary Care Unavailable CHARITY YIN Primary Care Unavailable BLOOD, MOMO P Consulting Unavailable DIAZ, KAREEM W Attending Unavailable DIAZ KAREEM W Admitting Unavailable LINDA, VIREDOC K Consulting Unavailable LADY, JEANNIE Attending Unavailable [...] Unavailable HOY ., DR NASH Attending Unavailable BUENA, DR ANI Adame Consulting Unavailable HOY ., DR NASH Primary Care Unavailable HOY ., DR NASH Consulting Unavailable HOY ., DR NASH Admitting Unavailable HOY ., DR NASH Attending Unavailable HOY ., DR NASH Primary Care Unavailable HOY ., DR NASH Admitting Unavailable HOY ., DR NASH Attending Unavailable HOY ., DR NASH Consulting Unavailable Julio Cesary Charity CADET Primary Care Provider Charity Yin MD Primary Care Provider [phone] JUAN CARLOS ALAS JR Admitting Unavailabl e STEPERENDIRA LORD, JUAN CARLOS Fisher Attending Unavailabl e HORonny, CHARITY M Primary Care Unavailable RUDY VIRAMONTES Consulting Unavailable CHON WILKINSON Attending Unavailable HORonny, CHARITY M Primary Care Unavailable BISHOP LORD, JUAN CARLOS Fisher Referring Unavailabl e HOY, CHARITY M Primary Care Unavailable BISHOP JR, JUAN CARLOS Fisher Referring Unavailabl e HORonny, CHARITY M Primary Care Unavailable JUAN CARLOS ALAS JR Attending Unavailabl e STEPJUAN CARLOS QUEZADA JR Referring Unavailabl e HOY, CHARITY M Primary Care Unavailable BISHOP LORD, JUAN CARLOS Fisher Attending Unavailabl e STEPANIC JR, JUAN CARLOS Fisher Referring Unavailabl e HORonny, CHARITY M Primary Care Unavailable JUAN CARLOS ALAS JR Attending Unavailabl e JUAN CARLOS ALAS JR Referring Unavailabl e HORonny, CHARITY M Primary Care Unavailable BISHOP LORD, JUAN CARLOS Fisher Attending Unavailabl e JUAN CARLOS ALAS JR Referring Unavailabl e ANNAMARIA, CHARITY M Primary Care Unavailable JR. BISHOP, JUAN CARLOS Fisher Attending Unavaila val ALAS JR., JUAN CARLOS Fisher Referring Unavaila MC Cleary Attending Unavailable SANDRA BURR Attending Unavailable SANDRA BURR Referring Unavailable SANDRA BURR Attending Unavailable BARBY GRIGGS Attending Unavailable JR. BISHOP, JUAN CARLOS Fisher Referring Unavaila ble BARBY GRIGGS Attending Unavailable JR. BISHOP, JUAN CARLOS Fisher Referring Unavaila ble BARBY GRIGGS Attending Unavailable JR. BISHOP, JUAN CARLOS Fisher Referring Unavaila BARBY Crandall Attending Unavailable JR. BISHOP, JUAN CARLOS Fisher Referring Unavaila ble LUKE GUZMAN Attending Unavailable JR. BISHOP, JUAN CARLOS Fisher Referring Unavaila ble LUKE GUZMAN Attending Unavailable JR. BISHOP, JUAN CARLOS Fisher Referring Unavaila ble SANDRA BURR Attending Unavailable SANDRA BURR Referring Unavailable BARBY GRIGGS Attending Unavailable JR. BISHOP, JUAN CARLOS Fisher Referring Unavaila ble LUKE GUZMAN Attending Unavailable JR. BISHOP, JUAN CARLOS Fisher Referring Unavaila ble BARBY GRIGGS Attending Unavailable JR. BISHOP, JUAN CARLOS Fisher Referring Unavaila ble LUKE GUZMAN Attending Unavailable JR. BISHOP, JUAN CARLOS Fisher Referring Unavaila BARBY Crandall Attending Unavailable JR. BISHOP, JUAN CARLOS Fisher Referring Unavaila ble LUKE GUZMAN Attending Elisa ALAS JR., JUAN CARLOS Fisher Referring Unavaila BARBY Crandall Attending Unavailable JR. BISHOP, JUAN CARLOS Fisher Referring Unavaila BARBY Crandall Attending Unavailable JR. BISHOP, JUAN CARLOS Fisher Referring Unavaila BARBY Crandall Attending Unavailable JR. BISHOP, JUAN CARLOS Fisher Referring Unavaila BARBY Crandall Attending Unavailable JR. 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] Onset: 04-10-2019 [...] (Bld) [Volume fraction] 36.0 % Low 39-49 [facility] Comment on above: Performed By: #### H H #### [facility] ([id number]) [address] [place] [address] Hemoglobin (Bld) [Mass/Vol] 12.3 g/dL Low 13.0-17.0 [facility] Comment on above: Performed By: #### H H #### [facility] ([id number]) [address] [place] [address] HGB AND HCTon 11-20-2023 Hematocrit (Bld) [Volume fraction] 37.5 % Low 39-49 [facility] Comment on above: Performed By: #### H H #### [facility] ([id number]) [address] [place] [address] Hemoglobin (Bld) [Mass/Vol] 12.9 g/dL Low 13.0-17.0 [facility] Comment on above: Performed By: #### H H #### [facility] ([id number]) [address] [place] [address] HGB AND HCTon 11-19-2023 Hematocrit (Bld) [Volume fraction] 42.5 % Normal 39-49 [facility] Comment on above: Performed By: #### H H #### [facility] ([id number]) [address] [place] [address] Hemoglobin (Bld) [Mass/Vol] 14.3 g/dL Normal 13.0-17.0 [facility] Comment on above: Performed By: #### H H #### [facility] ([id number]) [address] [facility] [place] [address] XR KNEE LT 1 OR 2 VWSon XR KNEE LT 1 OR 2 VWS [...] Fletcher MD on 11/19/2023 2:43 PM Normal [facility] XR BONE LENGTH STUDYon 11-10 XR BONE LENGTH STUDY XR BONE LENGTH STUDY CLINICAL INFORMATION:[place] ry artery disease involving telida coronary artery of telida heart without angina pectoris; Preop examination; Urinary [...] Meraz MD on 11/10/2023 2:18 PM Normal [facility] Bacteria identified Cx Nom ( U)on 11-09-2023 Service comment (Unsp spec) [Interp] <10,000 ORGANISMS/ML NORMAL URO GENITAL BEST [facility] BASIC METABOLIC PANLon 11-08 Anion gap [Moles/Vol] 7 mmol/L Normal 5-15 [facility] Comment on above: Performed By: #### C ALISTAIR BMP #### [facility] ([id number]) [address], [address] [place] [address] Calcium [Mass/Vol] 10.0 mg/dL Normal 8.5-10.5 [facility] Comment on above: Performed By: #### C BCA, BMP #### [facility] ([id number]) [address], [address] [place] [address] Chloride [Moles/Vol] 101 mmol/L Normal 98-109 [facility] Comment on above: Performed By: #### C BCA, BMP #### [facility] ([id number]) [address], [address] [place] [address] CO2 [Moles/Vol] 30 mmol/L Normal 22-[address] [facility] Comment on above: Performed By: #### C BCA, BMP #### [facility] ([id number]) [address], [address] [place] [address] Creatinine [Mass/Vol] 0.92 mg/dL Normal 0.60-1.30 [facility] Comment on above: Result Comment: METH OD TRACEABLE TO IDMS STANDARD Performed By: #### C BCA, BMP #### [facility] ([id number]) [address], [address] [place] [address] GFR/1.73 sq M.predicted among non-blacks MDRD (S/P/Bld) [Vol rate/Area] 88 mL/min/{1.73_m2} Normal >[address] [facility] Comment on above: Result Comment: Reported eGFR is based on the CKD-EPI 2020 equation that does not use a race coefficient. Performed By: #### C BCA, BMP #### [facility] ([id number]) [address], [address] [place] [address] Glucose [Mass/Vol] 94 mg/dL Normal 65-99 [facility] Comment on above: Performed By: #### C BCA, BMP #### [facility] ([id number]) [address], [address] [place] [address] Potassium [Moles/Vol] 4.7 mmol/L Normal 3.5-5.0 [facility] Comment on above: Performed By: #### C BCA, BMP #### [facility] ([id number]) [address], [address] [place] [address] Sodium [Moles/Vol] 138 mmol/L Normal 134-146 [facility] Comment on above: Performed By: #### C BCA, BMP #### [facility] ([id number]) [address], [address] [place] [address] Urea nitrogen [Mass/Vol] 23 mg/dL Normal 5-27 [facility] Comment on above: Performed By: #### C BCA, BMP #### [facility] ([id number]) [address], [address] [place] [address] Basic Metabolic Panelon 10-18 Anion gap [Moles/Vol] 7 mmol/L 5 - 15 mmol/L [facility] Calcium [Mass/Vol] 10.0 mg/dL 8.5 - 10. 5 mg/dL [facility] Chloride [Moles/Vol] 101 mmol/L 98 - 109 mmol/L [facility] CO2 [Moles/Vol] 30 mmol/L 22 - 32 mmol/L [facility] Creatinine [Mass/Vol] 0.92 mg/dL 0.60 - 1.30 mg/dL [facility] Comment on above: METHOD TRACEABLE TO IDNV STANDARD eGFR (CKD-EPI)non-race dependent 88 - PINF [facility] Comment on above: Reported eGFR is based on the CKD-EPI 2020 equation that does not use a race coefficient. Glucose [Mass/Vol] 94 mg/dL 65 - 99 mg/dL [facility] Potassium [Moles/Vol] 4.7 mmol/L 3.5 - 5.0 mmol/L [facility] Sodium [Moles/Vol] 138 mmol/L 134 - 146 mmol/L [facility] Urea nitrogen [Mass/Vol] 23 mg/dL 5 - 27 mg/dL [facility] CBC AND AUTO DIFFon 11-08-19 ABSOLUTE BASOPHIL 0.0 X10E9/L Normal 0.0-0.2 [facility] Comment on above: Performed By: #### C BCA, BMP #### [facility] ([id number]) [address], [address] [place] [address] ABSOLUTE NEUTROPHIL 6.9 X10E9/L High 1.5-6.[address] [facility] Comment on above: Performed By: #### C BCA, BMP #### [facility] ([id number]) [address], [address] [place] [address] Basophils/100 WBC (Bld) 0.4 % Normal [facility] Comment on above: Performed By: #### C ALISTAIR, BMP #### [facility] ([id number]) [address], [address] [place] [address] Eosinophils (Bld) [#/Vol] 0.0 10*3/uL Normal 0.0-0.4 [facility] Comment on above: Performed By: #### C ALISTAIR, BMP #### [facility] ([id number]) [address], [address] [place] [address] Eosinophils/100 WBC (Bld) 0.6 % Normal [facility] Comment on above: Performed By: #### C ALISTAIR, BMP #### [facility] ([id number]) [address], [address] [place] [address] Erythrocyte distribution width (RBC) [Ratio] 13.3 % Normal 11.5-15.0 [facility] Comment on above: Performed By: #### C BCA, BMP #### [facility] ([id number]) [address], [address] [place] [address] Hematocrit (Bld) [Volume fraction] 45.3 % Normal 39-49 [facility] Comment on above: Performed By: #### C BCA, BMP #### [facility] ([id number]) [address], [address] [place] [address] Hemoglobin (Bld) [Mass/Vol] 15.3 g/dL Normal 13.0-17.0 [facility] Comment on above: Performed By: #### C ALISTAIR, BMP #### [facility] ([id number]) [address], [address] [place] [address] Lymphocytes (Bld) [#/Vol] 1.1 10*3/uL Normal 1.0-3.5 [facility] Comment on above: Performed By: #### C ALISTAIR, BMP #### [facility] ([id number]) [address], [address] [place] [address] Lymphocytes/100 WBC (Bld) 12.3 % Normal [facility] Comment on above: Performed By: #### C ALISTAIR, BMP #### [facility] ([id number]) [address], [address] [place] [address] MCH (RBC) [Entitic mass] 32.3 pg Normal 27-34 [facility] Comment on above: Performed By: #### C ALISTAIR, BMP #### [facility] ([id number]) [address], [address] [place] [address] MCHC (RBC) [Mass/Vol] 33.7 g/dL Normal 32-36 [facility] Comment on above: Performed By: #### C ALISTAIR, BMP #### [facility] ([id number]) [address], [address] [place] [address] MCV (RBC) [Entitic vol] 96 fL Normal 80-100 [facility] Comment on above: Performed By: #### C BCA, BMP #### [facility] ([id number]) [address], [address] [place] [address] Monocytes (Bld) [#/Vol] 0.8 10*3/uL Normal 0-0.9 [facility] Comment on above: Performed By: #### C ALISTAIR, BMP #### [facility] ([id number]) [address], [address] [place] [address] Monocytes/100 WBC (Bld) 9.0 % Normal [facility] Comment on above: Performed By: #### Natalia SAINZ, BMP #### [facility] ([id number]) [address], [address] [place] [address] Neutrophils/100 WBC (Bld) 77.7 % Normal [facility] Comment on above: Performed By: #### Natalia SAINZ, BMP #### [facility] ([id number]) [address], [address] [place] [address] Platelet mean volume (Bld) [Entitic vol] 8.9 fL Normal 7-12 [facility] Comment on above: Performed By: #### Natalia SAINZ, BMP #### [facility] ([id number]) [address], [address] [place] [address] Platelets (Bld) [#/Vol] 257 10*3/uL Normal 150-450 [facility] Comment on above: Performed By: #### Natalia SAINZ, BMP #### [facility] ([id number]) [address], [address] [place] [address] RBC COUNT 4.73 X10E12/L Normal 4.10-5.70 [facility] Comment on above: Performed By: #### Natalia SAINZ, BMP #### [facility] ([id number]) [address], [address] [place] [address] WBC (Bld) [#/Vol] 8.9 10*3/uL Normal 4.0-11.0 [facility] Comment on above: Performed By: #### Natalia SAINZ, BMP #### [facility] ([id number]) [address], [address] [place] [address] CBC auto differentialon 10-18 Basophils (Bld) [#/Vol] 0.0 10*3/uL [facility] Basophils/100 WBC (Bld) 0.4 % [facility] Eosinophils (Bld) [#/Vol] 0.0 10*3/uL [facility] Eosinophils/100 WBC (Bld) 0.6 % [facility] Erythrocyte distribution width (RBC) [Ratio] 13.3 % 11.5 - 15.0 % [facility] Hematocrit (Bld) [Volume fraction] 45.3 % 39 - 49 % [facility] Hemoglobin (Bld) [Mass/Vol] 15.3 g/dL 13.0 - 17.0 g/dL [facility] Interpretation and review of laboratory results Abnormal [facility] Lymphocytes (Bld) [#/Vol] 1.1 10*3/uL [facility] Lymphocytes/100 WBC (Bld) 12.3 % [facility] MCH (RBC) [Entitic mass] 32.3 pg 27 - 34 pg [facility] MCHC (RBC) [Mass/Vol] 33.7 g/dL 32 - 36 g/dL [facility] MCV (RBC) [Entitic vol] 96 fL 80 - 100 fL [facility] Monocytes (Bld) [#/Vol] 0.8 10*3/uL [facility] Monocytes/100 WBC (Bld) 9.0 % [facility] Neutrophils (Bld) [#/Vol] 6.9 10*3/uL [facility] Neutrophils/100 WBC (Bld) 77.7 % [facility] Platelet mean volume (Bld) [Entitic vol] 8.9 fL 7 - 12 fL [facility] Platelets (Bld) [#/Vol] 257 10*3/uL [facility] RBC (Bld) [#/Vol] 4.73 10*6/uL [facility] WBC corrected for nucl RBC Auto (Bld) [#/Vol] 8.9 [facility] ECG 12 leadon 11-08-2023 TRACEMASTERVUE [facility] Type and screen(includes ind irect wanda)on 11-08-2023 ABO O [facility] Rh Nom (Bld) Positive [facility] URINALYSISon 11-08-2023 Bilirubin Ql (U) Negative Normal NEG [facility] BLOOD/HGB Negative Normal NEG [facility] Color (U) YELLOW Normal YELLOW [facility] Glucose Ql (U) Negative Normal NEG [facility] Ketones Ql (U) Negative Normal NEG [facility] Leukocyte esterase Test strip Ql (U) Negative Normal NEG [facility] Nitrite Ql (U) Negative Normal NEG [facility] pH (U) 6.0 [pH] Normal 5.0-8.5 [facility] Protein Ql (U) Negative Normal NEG [facility] Specific gravity (U) [Rel density] 1.010 Normal 1.003-1.035 [facility] TURBIDITY CLEAR Normal CLEAR [facility] Urobilinogen (U) [Mass/Vol] mg/dL Normal <1.1 [facility] URINE CULTUREon 11-08-2023 Bacteria identified Cx Nom (U) CULTURE RESULTS <10,000 ORGANISMS/ML NORMAL URO GENITAL BEST Normal [facility] Comment on above: Performed By: #### 6 30-4 #### [facility] ([id number]) [address] [place] [address], [address] [place] [address] Urinalysison 11-08-2023 Bilirubin Ql (U) Negative Negative^Ne gati ve [facility] Color (U) YELLOW YELLOW^YELLOW [facility] Glucose (U) [Mass/Vol] Negative Negative^Negati ve mg/dL [facility] Hemoglobin Auto test strip Ql (U) Negative Negative^Negati ve [facility] Ketones (U) [Mass/Vol] Negative Negative^Negati ve mg/dL [facility] Leukocyte esterase Auto test strip Ql (U) Negative Negative^Negati ve [facility] Nitrite Auto test strip Ql (U) Negative Negative^Negati ve [facility] pH (U) 6.0 [pH] 5.0 - 8.5 [facility] Protein (U) [Mass/Vol] Negative Negative^Negati ve mg/dL [facility] Specific gravity Refractometry automated (U) [Rel density] 1.010 1.003 - 1.035 [employer] Turbidity Ql (U) CLEAR CLEAR^CLEAR [facility] Urobilinogen Qn (U) NINF [facility] [employer] [facility] [employer] [facility] XR Knee - left 1 or 2 Viewso n 10-23-2023 Imaging Result: AP and lateral views of left knee showed severe varus deformity with [id number] articulation to the medial joint line, flattening [...] 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 Radiology Study observation (narrative) [facility] MRI KNEE LT WO CONon [...] VALERIE CHRISTY Date: 2022-11-27 08:55 Normal [facility] OCC BLD IMMUNO SCREENon OCCULT BLOOD Negative Normal NEGATIVE [facility] Comment on above: Performed By: #### O BSCRN #### [facility] [address] [place], [place] [address] Dr. Ankit Peters INSULINon 11-15-2022 Insulin 12.6 uIU/mL Normal 2.6-24.9 [facility] Comment on above: Performed By: #### I NSULIN ####[facility] [address] [place] [address]Dr. Ankit Peters CBC AUTO DIFFon 11-14-2022 BASO # 0.0 103/ul Normal 0.0-0.1 [facility] Comment on above: Performed By: #### C BC ####[facility] [address] [place] [address]Dr. Ankit Peters Basophils/100 WBC (Bld) 0.5 % Normal 0.2-2.0 [facility] Comment on above: Performed By: #### C BC ####[facility] [address] [place] [address]Dr. Ankit Peters EO # 0.1 103/ul Normal 0.0-0.7 [facility] Comment on above: Performed By: #### C BC ####[facility] [address] [place] [address]DrCarolyn Peters Eosinophils/100 WBC (Bld) 2.0 % Normal 0.9-7.0 [facility] Comment on above: Performed By: #### C BC ####[facility] [address] [place], [place] [address]Dr. Ankit Peters Erythrocyte distribution width (RBC) [Ratio] 12.6 % Normal 11.0-15.0 [facility] Comment on above: Performed By: #### C BC ####[facility] [address] [place], [place] [address]Dr. Ankit Peters Hematocrit (Bld) [Volume fraction] 46.6 % Normal 42.0-54.0 [facility] Comment on above: Performed By: #### C BC ####[facility] [address] [place] [address]Dr. Ankit Peters Hemoglobin (Bld) [Mass/Vol] 15.3 g/dL Normal 14.0-18.0 [facility] Comment on above: Performed By: #### C BC ####[facility] [address] [place] [address]Dr. Ankit Peters IG # 0.02 10e3/ul Normal 0.00-0.03 [facility] Comment on above: Performed By: #### C BC ####[facility] [address] [place], [place] [address]Dr. Ankit Fran IG % 0.3 % Normal 0.0-0.5 [facility] Comment on above: Performed By: #### C BC ####[facility] [address] [place], [place] [address]Dr. Ankit Fran LYMPH # 1.4 103/ul Normal 1.2-3.8 [facility] Comment on above: Performed By: #### C BC ####[facility] [address] [place], [place] [address]Dr. Ankit Fran Lymphocytes/100 WBC (Bld) 21.5 % Normal 20.5-60.0 [facility] Comment on above: Performed By: #### C BC ####[facility] [address] [place] [address]Dr. Ankit Peters MANUAL DIFF REQ NO Normal [facility] Comment on above: Performed By: #### C BC ####[facility] [address] [place] [address]Dr. Ankit Fran MCH (RBC) [Entitic mass] 31.6 pg Normal 25.9-34.0 [facility] Comment on above: Performed By: #### C BC ####[facility] [address] [place] [address]Dr. Ankit Peters MCHC (RBC) [Mass/Vol] 32.8 g/dL Normal 29.9-35.2 [facility] Comment on above: Performed By: #### C BC ####[facility] [address] [place] [address]Dr. Ankit Peters MCV (RBC) [Entitic vol] 96.3 fL Critically high 80.0-94.0 [facility] Comment on above: Performed By: #### C BC ####[facility] [address] [place] [id number]. Ankit Fran MONO # 0.6 103/ul Normal 0.3-0.8 [facility] Comment on above: Performed By: #### C BC ####[facility] [address] [place] [address]Dr. Yolandaradha Peters Monocytes/100 WBC (Bld) 9.3 % Normal 1.7-12.0 [facility] Comment on above: Performed By: #### C BC ####[facility] [address] [place], [place] [address]Dr. Ankit Peters NEUT # 4.4 103/ul Normal 1.4-6.5 [facility] Comment on above: Performed By: #### C BC ####[facility] [address] [place], [place] [address]Dr. Yolandaradha Peters Neutrophils/100 WBC (Bld) 66.4 % Normal 43.0-75.0 [facility] Comment on above: Performed By: #### C BC ####[facility] [address] [place], [place] [address]Dr. Yolandaradha Peters Platelet mean volume (Bld) [Entitic vol] 9.5 fL Normal 9.5-13.5 [facility] Comment on above: Performed By: #### C BC ####[facility] [address] [place], [place] [address]Dr. Ankit Peters PLT 234 103/ul Normal 150-450 [facility] Comment on above: Performed By: #### C BC ####[facility] [address] [place] [id number]. Ankit Peters RBC 4.84 106/ul Normal 4.70-6.10 [facility] Comment on above: Performed By: #### C BC ####[facility] [address] [place] [address]Dr. Ankit Peters WBC 6.6 103/ul Normal 4.0-11.0 [facility] Comment on above: Performed By: #### C BC ####[facility] [address] [place] [address]Dr. Ankit Peters FREE THYROXINE INDEX T7on FTI 2.82 Normal 1.30-4.50 [facility] Comment on above: Performed By: #### L IPID, URIC, CMP, TSH, T7 #### [facility] [address] [place] [address] [address] Ankit Peters T3U 34.0 % Normal 33.0-40.0 [facility] Comment on above: Performed By: #### L IPID, URIC, CMP, TSH, T7 #### [facility] [address] [place] [address] Dr. Ankit Peters T4 [Mass/Vol] 8.30 ug/dL Normal 4.50-12.10 [facility] Comment on above: Performed By: #### L IPID, URIC, CMP, TSH, T7 #### [facility] [address] [address] [address] Ankit Peters GLYCOHEMOGLOBIN A1Con 2022 ADA RECOMMENDATION SEE BELOW Normal [facility] Comment on above: Result Comment: ADA RECOMMENDED LIMIT 4.0 - 6.0 ADA THERAPEUTIC TARGET < 7.0 ACTION SUGGESTED > 7.0 Performed By: #### A 1C #### [facility] [address] [place] [address] Dr. Ankit Peters Glucose [Mass/Vol] 105 mg/dL Normal [facility] Comment on above: Performed By: #### A 1C #### [facility] [address] [place] [address] Dr. Ankit Peters HbA1c (Bld) [Mass fraction] 5.3 % Normal 4.5-6.2 [facility] Comment on above: Performed By: #### A 1C #### [facility] [address] [address] [address] Ankit Peters LIPID PROFILEon 11-14-2022 CHOL-HDL RATIO NORM SEE BELOW Normal [facility] Comment on above: Result Comment: 3.3 - 4.4 LOW RISK 4.4 - 7.1 AVERAGE RISK 7.1 - 11.0 MODERATE RISK >11.0 HIGH RISK Performed By: #### L IPID, URIC, CMP, TSH, T7 #### [facility] [address] [address] [address] Ankit Peters Cholesterol [Mass/Vol] 154 mg/dL Normal <=200 [facility] Comment on above: Performed By: #### L IPID, URIC, CMP, TSH, T7 #### [facility] [address] [address] [address] Ankit Peters Cholesterol in HDL [Mass/Vol] 55 mg/dL Normal 40-60 [facility] Comment on above: Performed By: #### L IPID, URIC, CMP, TSH, T7 #### [facility] [address] [address] [address] Ankit Peters Cholesterol in LDL [Mass/Vol] 84.2 mg/dL Normal [facility] Comment on above: Performed By: #### L IPID, URIC, CMP, TSH, T7 #### [facility] [address] [address] [address] Ankit Peters Cholesterol.total/C holesterol in HDL [Mass ratio] 2.8 {ratio} Normal [facility] Comment on above: Performed By: #### L IPID, URIC, CMP, TSH, T7 #### [facility] [address] [address] [address] Ankit Peters HDL NORMAL > or = 60 mg/dl - LOW CARDIOVASCULAR RISK <40 mg/dl - HIGH CARDIOVASCULAR RISK Normal [facility] Comment on above: Performed By: #### L IPID, URIC, CMP, TSH, T7 #### [facility] [address] [address] [address] Ankit Peters LDL CALC NORMAL SEE BELOW Normal [facility] Comment on above: Result Comment: <100 mg/dl OPTIMAL 100 - 129 mg/dl NEAR OR ABOVE OPTIMAL 130 - 159 mg/dl BORDERLINE HIGH 160 - 189 mg/dl HIGH >190 mg/dl VERY HIGH Performed By: #### L IPID, URIC, CMP, TSH, T7 #### [facility] [address] [address] [address] Ankit Peters Triglyceride [Mass/Vol] 74 mg/dL Normal <=150 [facility] Comment on above: Performed By: #### L IPID, URIC, CMP, TSH, T7 #### [facility] [address] [address] [address] Ankit Peters VLDL CALC 14.8 mg/dL Normal [facility] Comment on above: Performed By: #### L IPID, URIC, CMP, TSH, T7 #### [facility] [address] [place] [address] Dr. Ankit Peters PROF 14(COMP METB)on 023 Albumin [Mass/Vol] 4.1 g/dL Normal 3.4-5.0 [facility] Comment on above: Performed By: #### L IPID, URIC, CMP, TSH, T7 #### [facility] [address] [address] [address] Ankit Peters Albumin/Globulin [Mass ratio] 1.2 {ratio} Normal [facility] Comment on above: Performed By: #### L IPID, URIC, CMP, TSH, T7 #### [facility] [address] [address] [address] Ankit Peters ALP [Catalytic activity/Vol] 65 U/L Normal 46-116 [facility] Comment on above: Performed By: #### L IPID, URIC, CMP, TSH, T7 #### [facility] [address] [address] [address] Ankit Peters ALT [Catalytic activity/Vol] 36 U/L Normal 16-63 [facility] Comment on above: Performed By: #### L IPID, URIC, CMP, TSH, T7 #### [facility] [address] [address] [address] Ankit Peters Anion gap [Moles/Vol] 9.1 mmol/L Normal [facility] Comment on above: Performed By: #### L IPID, URIC, CMP, TSH, T7 #### [facility] [address] [place] [address] Dr. Ankit Peters AST [Catalytic activity/Vol] 29 U/L Normal 15-37 [facility] Comment on above: Performed By: #### L IPID, URIC, CMP, TSH, T7 #### [facility] [address] [place] [address] Dr. Ankit Peters Bilirubin [Mass/Vol] 0.6 mg/dL Normal 0.2-1.0 [facility] Comment on above: Performed By: #### L IPID, URIC, CMP, TSH, T7 #### [facility] [address] [place] [address] Dr. Ankit Peters Calcium [Mass/Vol] 9.4 mg/dL Normal 8.5-10.1 [facility] Comment on above: Performed By: #### L IPID, URIC, CMP, TSH, T7 #### [facility] [address] [place] [address] Dr. Ankit Peters Chloride [Moles/Vol] 104 mmol/L Normal 98-107 [facility] Comment on above: Performed By: #### L IPID, URIC, CMP, TSH, T7 #### [facility] [address] [place] [address] Dr. Ankit Peters CO2 [Moles/Vol] 30.2 mmol/L Normal 21.0-32.0 [facility] Comment on above: Performed By: #### L IPID, URIC, CMP, TSH, T7 #### [facility] [address] [place] [address] Dr. Ankit Peters Creatinine [Mass/Vol] 0.90 mg/dL Normal 0.70-1.30 [facility] Comment on above: Performed By: #### L IPID, URIC, CMP, TSH, T7 #### [facility] [address] [place] [address] Dr. Ankit Peters EGFR-AF SENEGALESE >60 Normal >=60 [facility] Comment on above: Performed By: #### L IPID, URIC, CMP, TSH, T7 #### [facility] [address] [address] [address] Ankit Peters EGFR-NON AF SENEGALESE >60 Normal >=60 [facility] Comment on above: Performed By: #### L IPID, URIC, CMP, TSH, T7 #### [facility] [address] [place] [address] Dr. Ankit Peters Globulin (S) [Mass/Vol] 3.4 g/dL Normal [facility] Comment on above: Performed By: #### L IPID, URIC, CMP, TSH, T7 #### [facility] [address] [place] [address] Dr. Ankit Peters Glucose [Mass/Vol] 97 mg/dL Normal 74-106 [facility] Comment on above: Performed By: #### L IPID, URIC, CMP, TSH, T7 #### [facility] [address] [place] [address] Dr. Ankit Peters Potassium [Moles/Vol] 4.3 mmol/L Normal 3.5-5.1 [facility] Comment on above: Performed By: #### L IPID, URIC, CMP, TSH, T7 #### [facility] [address] [place] [address] Dr. Ankit Peters Protein [Mass/Vol] 7.5 g/dL Normal 6.4-8.2 [facility] Comment on above: Performed By: #### L IPID, URIC, CMP, TSH, T7 #### [facility] [address] [place] [address] Dr. Ankit Peters Sodium [Moles/Vol] 139 mmol/L Normal 136-145 [facility] Comment on above: Performed By: #### L IPID, URIC, CMP, TSH, T7 #### [facility] [address] [place] [address] Dr. Ankit Peters Urea nitrogen [Mass/Vol] 17.0 mg/dL Normal 7.0-18.0 [facility] Comment on above: Performed By: #### L IPID, URIC, CMP, TSH, T7 #### [facility] [address] [place], [place] [address] Dr. Ankit Peters Urea nitrogen/Creatinine [Mass ratio] 18.9 mg/mg Normal [facility] Comment on above: Performed By: #### L IPID, URIC, CMP, TSH, T7 #### [facility] [address] [place], [place] [address] Dr. Ankit Peters TSHon 11-14-2022 TSH 3.285 uIU/mL Normal 0.358-3.740 [facility] Comment on above: Performed By: #### L IPID, URIC, CMP, TSH, T7 #### [facility] [address] [address] [address] Ankit Peters URIC ACID SERUMon 11-14-2022 Urate [Mass/Vol] 4.8 mg/dL Normal 3.5-7.2 [facility] Comment on above: Performed By: #### L IPID, URIC, CMP, TSH, T7 #### [facility] [address] [id number] Ankit Peters VITAMIN D 25 OHon 11-14-2022 VIT D 25-OH 41.4 ng/mL Normal [facility] Comment on above: Performed By: #### Deep MELGAR PSASC ####[facility] [address] [place], [place] [address]DjDr. Ankit Peters VIT D RANGES SEE BELOW Normal [facility] Comment on above: Result Comment: <20 ng/mL Vit D deficient 20 - <30 ng/mL Vit D insufficient 30 - 100 ng/mL Vit D sufficient >100 ng/mL Potential Toxicity Performed By: #### Deep MELGAR PSASC ####[facility] [address] [place], [place] [address]EbDr. Ankit Peters [facility]17 SARS-CoV-2 (COVID-19) RNA KANDICE+probe Ql (Unsp spec) Not detected Normal NOT DETECTED [facility] Comment on above: Result Comment: This test is not yet approved or cleared by the [place] FDA. When there are no FDA-approved or cleared tests available, and other criteria are met, FDA can make tests available under an emergency access mechanism called an Emergency Use Authorization (EUA). The EUA for this test is supported by the [place] of Health and Human Service's (HHS's) declaration [...] with SARS-CoV-2. Performed By: #### C VDTB ####[facility] [address] [place], [place] [address]Dr. [facility] INFLUENZA A AND B AGon 09-11 [facility] SEE BELOW Normal [facility] Comment on above: Result Comment: Nega tive for Flu A protein angiten. Infection due to Flu A cannot be ruled out. Flu A angiten in the sample may be below the detection limit of the test. Performed By: #### I NFLUAB ####[facility] [address] [place], [place] [address]Dr. [facility] INFLUBNEGH SEE BELOW Normal [facility] Comment on above: Result Comment: Nega tive for Flu B protein antigen. Infection due to Flu B cannot be ruled out. Flu B antigen in the sample may be below the detection limit of the test. Performed By: #### I NFLUAB ####[facility] [address] [place], [place] [address]Dr. [facility] INFLUENZA A AG Negative Normal NEGATIVE SEE COMMENT [facility] Comment on above: Performed By: #### I NFLUAB ####[facility] [address] [place], [place] [address]Dr. [facility] INFLUENZA B AG Negative Normal NEGATIVE SEE COMMENT [facility] Comment on above: Performed By: #### I NFLUAB ####[facility] [address] [place], [place] [address]Ig. Ankit Peters INTERNAL CONTROLS Within Normal Limits Normal Within Normal Limits [facility] Comment on above: Performed By: #### I NFLUAB ####[facility] [address] [place], [place] [address]Rp. Ankit Peters Office Visiton 07-05-2022 Follow-up visit [id number] Levon Bond 1950 M Date Provider Department Center 07/05/2022 BHUPENDRA VELAZQUEZ ORTHO MPORTHO No family history on file Level of Service:35311 [place] OFFICE/OUTPATIENT NEW MODERATE MDM 45-59 MINUTES Reason for Visit and Comments: Pain [136] Pain [136] Normal [facility] Basic Metabolic Panelon Anion gap [Moles/Vol] 7 mmol/L Low 9 - 17 mmol/L [place] Bun/Cre Ratio 17 [place], [place] Calcium [Mass/Vol] 9.1 mg/dL 8.6 - 10. 4 mg/dL [place] Chloride [Moles/Vol] 99 mmol/L 98 - 107 mmol/L [place] CO2 [Moles/Vol] 29 mmol/L 20 - 31 mmol/L [place] Creatinine [Mass/Vol] 0.82 mg/dL 0.7 - 1.2 mg/dL [place] GFR >60 >60 mL/min [place] GFR Non- >60 >60 mL/min [place] GFR/1.73 sq M predicted among non-blacks MDRD (S/P/Bld) [Vol rate/Area] [place] Comment on above: Average GFR for 70 o r more years old: 75 mL/min/1.73sq m Chronic Kidney Disease: <60 mL/min/1.73sq m Kidney failure: <15 mL/min/1.73sq m eGFR calculated using average adult body mass. Additional eGFR calculator available at: http://www.IAMINTOIT.[employer]/multiple_crcl_2012.htm GFR/1.73 sq M predicted among non-blacks MDRD (S/P/Bld) [Vol rate/Area] NOT REPORTED [place] Glucose [Mass/Vol] 112 mg/dL High 70 - 99 mg/dL [place], [place] Interpretation and review of laboratory results Abnormal [place] Potassium [Moles/Vol] 4.0 mmol/L 3.7 - 5.3 mmol/L [place] Sodium [Moles/Vol] 135 mmol/L 135 - 144 mmol/L [place] Urea nitrogen [Mass/Vol] 14 mg/dL 8 - 23 mg/dL [place] Basic Metabolic Profon 09-22 (cont.) Normal [facility] Comment on above: Result Comment: Aver age GFR for 70 or more years old: 75 mL/min/1.73sq m Chronic Kidney Disease: <60 mL/min/1.73sq m Kidney failure: <15 mL/min/1.73sq m eGFR calculated using average adult body mass. Additional eGFR calculator available at: http://www.[employer] srl/multiple_crcl_2012.htm Performed By: #### B HARI, CDP #### [facility] [address] [facility] [place], [place] [id number] Camera Operator: Jeremías Donald MD Anion gap [Moles/Vol] 7 mmol/L Low 9-17 [facility] Comment on above: Performed By: #### B HARI, CDP #### [facility] [address] [facility] [place], [place] [id number] Camera Operator: Jeremías Donald MD BUN/CRE Ratio 17 Normal 9-20 [facility] Comment on above: Performed By: #### B HARI, CDP #### [facility] [address] [facility] [place], [place] [id number] Camera Operator: Jeremías Donald MD Calcium [Mass/Vol] 9.1 mg/dL Normal 8.6-10.4 [facility] Comment on above: Performed By: #### B MP, CDP #### [facility] [address] [place] [address] Camera Operator: Jeremías Donald MD Chloride [Moles/Vol] 99 mmol/L Normal 98-107 [facility] Comment on above: Performed By: #### B MP, CDP #### [facility] [address] [place] [address] Camera Operator: Jeremías Donald MD CO2 [Moles/Vol] 29 mmol/L Normal 20-31 [facility] Comment on above: Performed By: #### B MP, CDP #### [facility] [address] [place] [address] Camera Operator: Jeremías Donald MD Creatinine [Mass/Vol] 0.82 mg/dL Normal 0.70-1.20 [facility] Comment on above: Performed By: #### B MP, CDP #### [facility] [address] [place] [address] Camera Operator: Jeremías Donald MD GFR, Amer >60 Normal >60 [facility] Comment on above: Performed By: #### B MP, CDP #### [facility] [address] [place] [address] Camera Operator: Jeremías Donald MD GFR,non Amer >60 Normal >60 [facility] Comment on above: Performed By: #### B MP, CDP #### [facility] [address] [place] [address] Camera Operator: Jeremías Donald MD Glucose [Mass/Vol] 112 mg/dL High 70-99 [facility] Comment on above: Performed By: #### B MP, CDP #### [facility] [address] [place] [address] Camera Operator: Jeremías Donald MD Potassium [Moles/Vol] 4.0 mmol/L Normal 3.7-5.3 [facility] Comment on above: Performed By: #### B MP, CDP #### [facility] [address] [place] [address] Camera Operator: Jeremías Donald MD Sodium [Moles/Vol] 135 mmol/L Normal 135-144 [facility] Comment on above: Performed By: #### B MP, CDP #### [facility] [address] [place] [address] Camera Operator: Jeremías Donald MD Urea nitrogen [Mass/Vol] 14 mg/dL Normal 8-23 [facility] Comment on above: Performed By: #### B HARI, CDP #### [facility] [address] [place] [address] Camera Operator: Jeremías Donald MD Staging: NOT REPORTED Normal [facility] Comment on above: Performed By: #### B HARI, CDP #### [facility] [place] [address] Camera Operator: Jeremías Donald MD CBC Auto Differentialon Basophils (Bld) [#/Vol] 0.03 10*3/uL [place] Basophils/100 WBC (Bld) 0 % 0 - 2 % [place] Differential Type NOT REPORTED [place] Eosinophils (Bld) [#/Vol] 0.10 10*3/uL [place] Eosinophils/100 WBC (Bld) 1 % 1 - 4 % [place] Erythrocyte distribution width (RBC) [Ratio] 12.0 % 11.8 - 14.4 % [place] Hematocrit (Bld) [Volume fraction] 39.6 % Low 40.7 - 50.3 % [place] Hemoglobin (Bld) [Mass/Vol] 12.8 g/dL Low 13 - 17 g/dL [place] Immature granulocytes (Bld) [#/Vol] 0.03 10*3/uL [place] Immature granulocytes (Bld) [#/Vol] 0 % 0 [place] Interpretation and review of laboratory results Abnormal [place] Lymphocytes (Bld) [#/Vol] 0.92 10*3/uL Low [place] Lymphocytes/100 WBC (Bld) 8 % Low 24 - 43 % [place] MCH (RBC) [Entitic mass] 32.1 pg 25.2 - 33.5 pg [place] MCHC (RBC) [Mass/Vol] 32.3 g/dL 28.4 - 34.8 g/dL [place] MCV (RBC) [Entitic vol] 99.2 fL 82.6 - 102.9 fL [place] Monocytes (Bld) [#/Vol] 1.26 10*3/uL High [place] Monocytes/100 WBC (Bld) 11 % 3 - 12 % [place] Platelet mean volume (Bld) [Entitic vol] 10.0 fL 8.1 - 13.5 fL [place] Platelets (Bld) [#/Vol] NOT REPORTED [place] Platelets (Bld) [#/Vol] 203 10*3/uL [place] RBC (Bld) [#/Vol] 3.99 10*6/uL Low 4.21 - 5.7 7 m/uL [place] RBC morphology finding Nom (Bld) NOT REPORTED [place] Segmented neutrophils/100 WBC (Bld) 80 % High 36 - 65 % [place] Segs Absolute 8.94 High [place], [place] WBC (Bld) [#/Vol] 11.3 10*3/uL [place] WBC (Bld) [#/Vol] 0.0 10*3/uL 0.0 per 100 [facility] [place], [place] WBC Morphology NOT REPORTED [place], [place] CBC with Diffon 09-22-2020 Abs. Basophil 0.03 k/uL Normal 0.00-0.20 [facility] Comment on above: Performed By: #### B HARI, CDP #### [facility] [address] [place] [address] Camera Operator: Jeremías Donald MD Abs.Imm.Granulocyte 0.03 k/uL Normal 0.00-0.30 [facility] Comment on above: Performed By: #### B HARI, CDP #### [facility] [address] [place] [address] Camera Operator: Jeremías Donald MD Abs.Neutrophil (Seg) 8.94 k/uL High 1.50-8.10 [facility] Comment on above: Performed By: #### Anyi NORIEGA, CDP #### [facility] [address] [place] [address] Camera Operator: Jeremías Donald MD Basophils/100 WBC (Bld) 0 % Normal 0-2 [facility] Comment on above: Performed By: #### Anyi NORIEGA, CDP #### [facility] [address] [place] [address] Camera Operator: Jeremías Donald MD Eosinophils (Bld) [#/Vol] 0.10 10*3/uL Normal 0.00-0.44 [facility] Comment on above: Performed By: #### Anyi NORIEGA, CDP #### [facility] [address] [place] [address] Camera Operator: Jeremías Donald MD Eosinophils/100 WBC (Bld) 1 % Normal 1-4 [facility] Comment on above: Performed By: #### B HARI, CDP #### [facility] [address] [facility] [place] [address] Camera Operator: Jeremías Donald MD Erythrocyte distribution width (RBC) [Ratio] 12.0 % Normal 11.8-14.4 [facility] Comment on above: Performed By: #### B MP, CDP #### [facility] [place] [address] Camera Operator: Jeremías Donald MD Hematocrit (Bld) [Volume fraction] 39.6 % Low 40.7-50.3 [facility] Comment on above: Performed By: #### B HARI, CDP #### [facility] [address] [place] [address]. [place] [address] Camera Operator: Jeremías Donald MD Hemoglobin (Bld) [Mass/Vol] 12.8 g/dL Low 13.0-17.0 [facility] Comment on above: Performed By: #### B HARI, CDP #### [facility] [address] [place] [address]. [place] [address] Camera Operator: Jeremías Donald MD Immature granulocytes (Bld) [#/Vol] 0 % Normal 0 [facility] Comment on above: Performed By: #### B HARI, CDP #### [facility] [address] [place] [address]. [place] [address] Camera Operator: Jeremías Donald MD Lymphocytes (Bld) [#/Vol] 0.92 10*3/uL Low 1.10-3.70 [facility] Comment on above: Performed By: #### B MP, CDP #### [facility] [address] [place], [place] [address]ia [facility] [place] [address] Camera Operator: Jeremías Donald MD Lymphocytes/100 WBC (Bld) 8 % Low 24-43 [facility] Comment on above: Performed By: #### B HARI, CDP #### [facility] [address] [facility] [place] [address] Camera Operator: Jeremías Donald MD MCH (RBC) [Entitic mass] 32.1 pg Normal 25.2-33.5 [facility] Comment on above: Performed By: #### B MP, CDP #### [facility] [address] [facility] [place] [address] Camera Operator: Jeremías Donald MD MCHC (RBC) [Mass/Vol] 32.3 g/dL Normal 28.4-34.8 [facility] Comment on above: Performed By: #### B MP, CDP #### [facility] [address] [place] [address] Camera Operator: Jeremías Donald MD MCV (RBC) [Entitic vol] 99.2 fL Normal 82.6-102.9 [facility] Comment on above: Performed By: #### B MP, CDP #### [facility] [address] [place] [address] Camera Operator: Jeremías Donald MD Monocytes (Bld) [#/Vol] 1.26 10*3/uL High 0.10-1.20 [facility] Comment on above: Performed By: #### B MP, CDP #### [facility] [address] [place] [address] Camera Operator: Jeremías Donald MD Monocytes/100 WBC (Bld) 11 % Normal 3-12 [facility] Comment on above: Performed By: #### B MP, CDP #### [facility] [address] [place] [address] Camera Operator: Jeremías Donald MD Neutrophil (Seg) 80 % High 36-65 [facility] Comment on above: Performed By: #### B MP, CDP #### [facility] [address] [place] [address] Camera Operator: Jeremías Donald MD NRBC Automated 0.0 per 100 WBC Normal 0.0 [facility] Comment on above: Performed By: #### B MP, CDP #### [facility] [place] [address] Camera Operator: Jeremías Donald MD Platelet mean volume (Bld) [Entitic vol] 10.0 fL Normal 8.1-13.5 [facility] Comment on above: Performed By: #### B HARI, CDP #### [facility] [address] [place], [place] [address] [place] [address] Camera Operator: Jeremías Donald MD Platelets (Bld) [#/Vol] 203 10*3/uL Normal 138-453 [facility] Comment on above: Performed By: #### B HARI, CDP #### [facility] [address] [place] [address]. [place] [address] Camera Operator: Jeremías Donald MD RBC (Bld) [#/Vol] 3.99 10*6/uL Low 4.21-5.77 [facility] Comment on above: Performed By: #### B HARI, CDP #### [facility] [address] [place], [place] [address]ia [facility] [place] [address] Camera Operator: Jeremías Donald MD WBC (Bld) [#/Vol] 11.3 10*3/uL Normal 3.5-11.3 [facility] Comment on above: Performed By: #### B MP, CDP #### [facility] [place] [address] Camera Operator: Jeremías Donlad MD Auto Diff Performed NOT REPORTED Normal [facility] Comment on above: Performed By: #### B MP, CDP #### [facility] [address] [place] [address] Camera Operator: Jeremías Donald MD Platelets (Bld) [#/Vol] NOT REPORTED Normal [facility] Comment on above: Performed By: #### B MP, CDP #### [facility] [address] [place], [place] [address]. [place] [address] Camera Operator: Jeremías Donald MD RBC morphology finding Nom (Bld) NOT REPORTED Normal [facility] Comment on above: Performed By: #### B MP, CDP #### [facility] [address] [place] [address]. [place] [address] Camera Operator: Jeremías Donald MD WBC Morphology NOT REPORTED Normal [facility] Comment on above: Performed By: #### B MP, CDP #### [facility] [address] [place] [address]. [place] [address] Camera Operator: Jeremías Donald MD COVID-19on 09-15-2020 SARS-CoV-2 Not Detected Not Detected [place], [place] Comment on above: The specimen is NEGATIVE for SARS-CoV-2, the novel coronavirus associated with COVID-19. A negative result does not rule out COVID-19. This test has been authorized by the FDA under an Emergency Use Authorization (EUA) for use by authorized laboratories. [employer] SARS-CoV-2 Reagents for [employer] are designed to detect the virus that causes COVID-19 in patients with signs and symptoms of infection who are suspected of COVID-19. An individual without symptoms of COVID-19 and who is not shedding SARS-CoV-2 virus would expect to have a negative (not detected) result in this assay. Fact sheet for Healthcare Providers: https://www.fda.gov/media/930469/download Fact sheet for Patients: https://www.fda.gov/media/725658/download METHODOLOGY: RT-PCR SARS-CoV-2 [place], [place] SARS-CoV-2, [facility] [place] Source .NASOPHARYNGEAL SWAB [place] [id number] 09-15-2020 SARS-CoV-2 Not Detected Normal [facility] Comment on above: Result Comment: The specimen is NEGATIVE for SARS-CoV-2, the novel coronavirus associated with COVID-19. A negative result does not rule out COVID-19. This test has been authorized by the FDA under an Emergency Use Authorization (EUA) for use by authorized laboratories. [employer] SARS-CoV-2 [employer] are designed to detect the virus that causes COVID-19 in patients with signs and symptoms of infection who are suspected of COVID-19. An individual without symptoms of COVID-19 and who is not shedding SARS-CoV-2 virus would expect to have a negative (not detected) result in this assay. Fact sheet for Healthcare Providers: https://www.fda.gov/media/195633/download Fact sheet for Patients: https://www.fda.gov/media/441473/download METHODOLOGY: RT-PCR Performed By: #### C OVID #### [facility] [address] [place] [address] Camera Operator: Jeremías Donald MD [address] [address] Camera Operator: Rah Mccollum MD SARS-CoV-2 [facility] Comment on above: Performed By: #### C OVID #### [facility] [address] [place] [address] Camera Operator: Jeremías Donald MD [facility] [employer] [address] [place] [address] Camera Operator: Rah Mccollum MD SARS-CoV-2,[facility] Comment on above: Performed By: #### C OVID #### [facility] [address] [place] [address] [id number] Camera Operator: Jeremías Donald MD [facility] [employer] [address] [place], [place] [id number] Camera Operator: Rah Mccollum MD [id number] 09-14-2020 SARS-CoV-2 Source .NASOPHARYNGEAL SWAB Normal [facility] Comment on above: Performed By: #### C OVID #### [facility] [address] [place], [place] [id number] Camera Operator: Jeremías Donald MD [facility] [employer] [address] [place], [place] [id number] Camera Operator: Rah Mccollum MD EKG 12 Leadon 09-02-2020 Atrial Rate [address] [facility], [place] P [place] [address] [facility] P-R Interval 168 ms [facility], [place] Q-T Interval 406 ms [facility] QRS Duration 98 ms [facility], [place] QTc Calculation (Bazett) [address] [facility] [place] R [place] [address] [facility] [place] T [place] [address] [facility] [place] Ventricular Rate 61 BPM [facility], [place] Marcell, Mhpn Incoming Ekg Results From [employer] [place] - 09/02/2020 8:25 AM EST Normal sinus rhythm Possible Anterior infarct , age undetermined Abnormal ECG When compared with ECG of 02-APR-2018 10:00, Minimal criteria for Inferior infarct are no longer Present [place], [place] Normal sinus rhythm Possible Anterior infarct , age undetermined Abnormal ECG When compared with ECG of 02-APR-2018 10:00, Minimal criteria for Inferior infarct are no longer Present [place] MRSA DNA Probe, Nasalon 08-16 MRSA, DNA, Nasal NEGATIVE: MRSA DNA not detected by nucleic acid amplification. NEGATIVE: MRSA DNA not detected by nucleic acid amplificati [place], [place] Comment on above: Results should be used as an adjunct to nosocomial control efforts to identify patients needing enhanced precautions. The test is not intended to identify patients with staphylococcal infections. Results should not be used to guide or monitor treatment for MRSA infections. Specimen Description .NASAL SWAB [place] MRSA, DNA, Nasalon 0 MRSA, DNA, Nasal NEGATIVE: MRSA DNA not detected by nucleic acid amplification. Normal NMRSAA [facility] Comment on above: Result Comment: Results should be used as an adjunct to nosocomial control efforts to identify patients needing enhanced precautions. The test is not intended to identify patients with staphylococcal infections. Results should not be used to guide or monitor treatment for MRSA infections. Performed By: #### M RSANO #### [facility] [address] [place], [place] [id number] Camera Operator: Jeremías Donald MD [facility] [employer] [address] [place], [place] [id number] Camera Operator: Rah Mccollum MD BUN & Creatinineon 0 Creatinine [Mass/Vol] 1.06 mg/dL 0.7 - 1.2 mg/dL [place] GFR >60 >60 mL/min [place] GFR Non- >60 >60 mL/min [place] GFR/1.73 sq M predicted among non-blacks MDRD (S/P/Bld) [Vol rate/Area] NOT REPORTED [place] GFR/1.73 sq M predicted among non-blacks MDRD (S/P/Bld) [Vol rate/Area] [place] Comment on above: Average GFR for 70 o r more years old: 75 mL/min/1.73sq m Chronic Kidney Disease: <60 mL/min/1.73sq m Kidney failure: <15 mL/min/1.73sq m eGFR calculated using average adult body mass. Additional eGFR calculator available at: http://www.IAMINTOIT.[employer]/multiple_crcl_2012.htm Urea nitrogen [Mass/Vol] 23 mg/dL 8 - 23 mg/dL [place] BUN + Creatinineon 0 (cont.) Normal [facility] Comment on above: Result Comment: Aver age GFR for 70 or more years old: 75 mL/min/1.73sq m Chronic Kidney Disease: <60 mL/min/1.73sq m Kidney failure: <15 mL/min/1.73sq m eGFR calculated using average adult body mass. Additional eGFR calculator available at: http://www.[employer]/multiple_crcl_2012.htm Performed By: #### C DP, BUNCRT, LYTE #### [facility] [address] [facility] [place] [address] Camera Operator: Jeremías Donald MD Creatinine [Mass/Vol] 1.06 mg/dL Normal 0.70-1.20 [facility] Comment on above: Performed By: #### C DP, BUNCRT, LYTE #### [facility] [address] [place] [address] Camera Operator: Jeremías Donald MD GFR, Amer >60 Normal >60 [facility] Comment on above: Performed By: #### C DP, BUNCRT, LYTE #### [facility] [address] [place] [address] Camera Operator: Jeremías Donald MD GFR,non Amer >60 Normal >60 [facility] Comment on above: Performed By: #### C DP, BUNCRT, LYTE #### [facility] [address] [place] [address] Camera Operator: Jeremías Donald MD Urea nitrogen [Mass/Vol] 23 mg/dL Normal 8-23 [facility] Comment on above: Performed By: #### C DP, BUNCRT, LYTE #### [facility] [address] [place] [address] Camera Operator: Jeremías Donald MD Staging: NOT REPORTED Normal [facility] Comment on above: Performed By: #### C DP, BUNCRT, LYTE #### [facility] [address] [place] [address] Camera Operator: Jeremías Donald MD CBC Auto Differentialon 12- Basophils (Bld) [#/Vol] 0.04 10*3/uL [place] Basophils/100 WBC (Bld) 1 % 0 - 2 % [place] Differential Type NOT REPORTED [place] Eosinophils (Bld) [#/Vol] 0.14 10*3/uL [place] Eosinophils/100 WBC (Bld) 2 % 1 - 4 % [place] Erythrocyte distribution width (RBC) [Ratio] 12.3 % 11.8 - 14.4 % [place] Hematocrit (Bld) [Volume fraction] 46.2 % 40.7 - 50.3 % [place] Hemoglobin (Bld) [Mass/Vol] 14.7 g/dL 13 - 17 g/dL [place] Immature granulocytes (Bld) [#/Vol] 0.01 10*3/uL [place] Immature granulocytes (Bld) [#/Vol] 0 % 0 [place] Interpretation and review of laboratory results Abnormal [place] Lymphocytes (Bld) [#/Vol] 1.43 10*3/uL [place] Lymphocytes/100 WBC (Bld) 19 % Low 24 - 43 % [place] MCH (RBC) [Entitic mass] 31.8 pg 25.2 - 33.5 pg [place] MCHC (RBC) [Mass/Vol] 31.8 g/dL 28 - 38 g/dL [place] MCV (RBC) [Entitic vol] 100.0 fL 82.6 - 102.9 fL [place] Monocytes (Bld) [#/Vol] 0.53 10*3/uL [place] Monocytes/100 WBC (Bld) 7 % 3 - 12 % [place] Platelet mean volume (Bld) [Entitic vol] 9.5 fL 8.1 - 13.5 fL [place] Platelets (Bld) [#/Vol] 233 10*3/uL [place] Platelets (Bld) [#/Vol] NOT REPORTED [place] RBC (Bld) [#/Vol] 4.62 10*6/uL 4.21 - 5.7 7 m/uL [place] RBC morphology finding Nom (Bld) NOT REPORTED [place] Segmented neutrophils/100 WBC (Bld) 71 % High 36 - 65 % [place] Segs Absolute 5.25 [place], [place] WBC (Bld) [#/Vol] 7.4 10*3/uL [place] WBC (Bld) [#/Vol] NOT REPORTED 0.0 per 100 WBC [place] WBC Morphology NOT REPORTED [place], [place] CBC with Diffon 09-01-2020 Abs. Basophil 0.04 k/uL Normal 0.00-0.20 [facility] Comment on above: Performed By: #### C DP, BUNCRT, LYTE #### [facility] [address] [place] [address] Camera Operator: Jeremías Donald MD Abs.Imm.Granulocyte 0.01 k/uL Normal 0.00-0.30 [facility] Comment on above: Performed By: #### C DP, BUNCRT, LYTE #### [facility] [address] [place] [address] Camera Operator: Jeremías Donald MD Abs.Neutrophil (Seg) 5.25 k/uL Normal 1.50-8.10 [facility] Comment on above: Performed By: #### C DP, BUNCRT, LYTE #### [facility] [address] [place] [address] Camera Operator: Jeremías Donald MD Basophils/100 WBC (Bld) 1 % Normal 0-2 [facility] Comment on above: Performed By: #### C DP, BUNCRT, LYTE #### [facility] [address] [place], [place] [address]. [place] [address] Camera Operator: Jeremías Donald MD Eosinophils (Bld) [#/Vol] 0.14 10*3/uL Normal 0.00-0.44 [facility] Comment on above: Performed By: #### C DP, BUNCRT, LYTE #### [facility] [address] [place] [address]. [place] [address] Camera Operator: Jeremías Donald MD Eosinophils/100 WBC (Bld) 2 % Normal 1-4 [facility] Comment on above: Performed By: #### C DP, BUNCRT, LYTE #### [facility] [address] [place] [address] Camera Operator: Jeremías Donald MD Erythrocyte distribution width (RBC) [Ratio] 12.3 % Normal 11.8-14.4 [facility] Comment on above: Performed By: #### C DP, BUNCRT, LYTE #### [facility] [address] [place] [address]. [place] [address] Camera Operator: Jeremías Donald MD Hematocrit (Bld) [Volume fraction] 46.2 % Normal 40.7-50.3 [facility] Comment on above: Performed By: #### C DP BUNCRT, LYTE #### [facility] [address] [place] [address] Camera Operator: Jeremías Donald MD Hemoglobin (Bld) [Mass/Vol] 14.7 g/dL Normal 13.0-17.0 [facility] Comment on above: Performed By: #### C DP, BUNCRT, LYTE #### [facility] [address] [place] [address] Camera Operator: Jeremías Donald MD Immature granulocytes (Bld) [#/Vol] 0 % Normal 0 [facility] Comment on above: Performed By: #### C DP, BUNCRT, LYTE #### [facility] [address] [facility] [place] [address] Camera Operator: Jeremías Donald MD Lymphocytes (Bld) [#/Vol] 1.43 10*3/uL Normal 1.10-3.70 [facility] Comment on above: Performed By: #### C DP, BUNCRT, LYTE #### [facility] [facility] [place] [address] Camera Operator: Jeremías Donald MD Lymphocytes/100 WBC (Bld) 19 % Low 24-43 [facility] Comment on above: Performed By: #### C DP, BUNCRT, LYTE #### [facility] [address] [place] [address]. [place] [address] Camera Operator: Jeremías Donald MD MCH (RBC) [Entitic mass] 31.8 pg Normal 25.2-33.5 [facility] Comment on above: Performed By: #### C DP, BUNCRT, LYTE #### [facility] [address] [place] [address]. [place] [address] Camera Operator: Jeremías Donald MD MCHC (RBC) [Mass/Vol] 31.8 g/dL Normal 28.0-38.0 [facility] Comment on above: Performed By: #### C DP, BUNCRT, LYTE #### [facility] [address] [place] [address]. [place] [address] Camera Operator: Jeremías Donald MD MCV (RBC) [Entitic vol] 100.0 fL Normal 82.6-102.9 [facility] Comment on above: Performed By: #### C DP, BUNCRT, LYTE #### [facility] [facility] [place] [address] Camera Operator: Jeremías Donald MD Monocytes (Bld) [#/Vol] 0.53 10*3/uL Normal 0.10-1.20 [facility] Comment on above: Performed By: #### C DP, BUNCRT, LYTE #### [facility] [address] [place] [address] Camera Operator: Jeremías Donald MD Monocytes/100 WBC (Bld) 7 % Normal 3-12 [facility] Comment on above: Performed By: #### C DP, BUNCRT, LYTE #### [facility] [address] [place] [address]. [place] [address] Camera Operator: Jeremías Donald MD Neutrophil (Seg) 71 % High 36-65 [facility] Comment on above: Performed By: #### C DP, BUNCRT, LYTE #### [facility] [address] [place] [address]. [place] [address] Camera Operator: Jeremías Donald MD Platelet mean volume (Bld) [Entitic vol] 9.5 fL Normal 8.1-13.5 [facility] Comment on above: Performed By: #### C DP, BUNCRT, LYTE #### [facility] [address] [place] [address]. [place] [address] Camera Operator: Jeremías Donald MD Platelets (Bld) [#/Vol] 233 10*3/uL Normal 138-453 [facility] Comment on above: Performed By: #### C DP, BUNCRT, LYTE #### [facility] [address] [place] [address]. [place] [address] Camera Operator: Jeremías Donald MD RBC (Bld) [#/Vol] 4.62 10*6/uL Normal 4.21-5.77 [facility] Comment on above: Performed By: #### C DP, BUNCRT, LYTE #### [facility] [address] [facility] [place] [address] Camera Operator: Jeremías Donald MD WBC (Bld) [#/Vol] 7.4 10*3/uL Normal 3.5-11.3 [facility] Comment on above: Performed By: #### C DP, BUNCRT, LYTE #### [facility] [address] [place] [address]. [place] [address] Camera Operator: Jeremías Donald MD Auto Diff Performed NOT REPORTED Normal [facility] Comment on above: Performed By: #### C DP, BUNCRT, LYTE #### [facility] [address] [place] [address]. [place] [address] Camera Operator: Jeremías Donald MD NRBC Automated NOT REPORTED Normal 0.0 [facility] Comment on above: Performed By: #### C DP, BUNCRT, LYTE #### [facility] [address] [place] [address]. [place] [address] Camera Operator: Jeremías Donald MD Platelets (Bld) [#/Vol] NOT REPORTED Normal [facility] Comment on above: Performed By: #### C DP, BUNCRT, LYTE #### [facility] [address] [place] [address]. [place] [address] Camera Operator: Jeremías Donald MD RBC morphology finding Nom (Bld) NOT REPORTED Normal [facility] Comment on above: Performed By: #### C DP, BUNCRT, LYTE #### [facility] [address] [place] [address]. [place] [address] Camera Operator: Jeremías Donald MD WBC Morphology NOT REPORTED Normal [facility] Comment on above: Performed By: #### C DP, BUNCRT, LYTE #### [facility] [address] [facility] [place] [address] Camera Operator: Jeremías Donald MD Electrolyte Panelon 09-01-20 20 Anion gap [Moles/Vol] 10 mmol/L 9 - 17 mmol/L [facility] , [place] Chloride [Moles/Vol] 102 mmol/L 98 - 107 mmol/L [place] CO2 [Moles/Vol] 27 mmol/L 20 - 31 mmol/L [facility] [place] Potassium [Moles/Vol] 4.2 mmol/L 3.7 - 5.3 mmol/L [facility], [place] Sodium [Moles/Vol] 139 mmol/L 135 - 144 mmol/L [facility] Electrolyteson 09-01-2020 Anion gap [Moles/Vol] 10 mmol/L Normal - [facility] Comment on above: Performed By: #### C DP, BUNCRT, LYTE #### [facility] [address] [place] [address] Camera Operator: Jeremías Donald MD Chloride [Moles/Vol] 102 mmol/L Normal 98-107 [facility] Comment on above: Performed By: #### C DP, BUNCRT, LYTE #### [facility] [address] [place] [address] Camera Operator: Jeremías Donald MD CO2 [Moles/Vol] 27 mmol/L Normal 20-31 [facility] Comment on above: Performed By: #### C DP, BUNCRT, LYTE #### [facility] [address] [place] [address] Camera Operator: Jeremías Donald MD Potassium [Moles/Vol] 4.2 mmol/L Normal 3.7-5.3 [facility] Comment on above: Performed By: #### C DP, BUNCRT, LYTE #### [facility] [address] [place] [address] Camera Operator: Jeremías Donald MD Sodium [Moles/Vol] 139 mmol/L Normal 135-144 [facility] Comment on above: Performed By: #### C NOMAN GRESHAM LYTE #### [facility] [address] [place] [address] Camera Operator: Jeremías Donald MD MRSA, DNA, Nasalon 0 Specimen Description .NASAL SWAB Normal [facility] Comment on above: Performed By: #### M RSANO #### [facility] [address] [place] [address] Camera Operator: Jeremías Donald MD [address] [address] Camera Operator: Rah Mccollum MD TYPE AND SCREENon 09-01-2020 ABO/Rh Positive [place], [place] Arm Band Number [id number] [facility], [place] Expiration Date 09/23/2020,2359 [place], [place] Type + Screenon 09-01-2020 Type + Screen Sample Expiration 09/23/2020,2359 Arm Band Number [id number] ABO/Rh(D) O POSITIVE Antibody Screen NEGATIVE Normal [facility] Comment on above: Performed By: #### T YS #### [facility] [address] [place] [address] Camera Operator: Jeremías Donald MD Vital Signs Date Time Vital Sign Value Performing Clinician Facility 11-08-2023 09:07-0500 Body height 172.7 cm [facility] 1 [facility] 11-08-2023 09:07-0500 Body mass index (BMI) [Ratio] 23.42 kg/m2 [facility] 1 [facility] 11-08-2023 09:07-0500 Body weight 69.85 kg [facility] 1 [facility] 10-23-2023 08:08-0500 Body height 172.7 cm Jr. Stepanic DO Work Phone: [facility] 10-23-2023 08:08-0500 Body mass index (BMI) [Ratio] 23.11 kg/m2 Jr. Stepanic DO Work Phone: [facility] 10-23-2023 08:08-0500 Body weight 68.95 kg Jr. Stepanic DO Work Phone: [facility] 09-22-2020 11:33-0500 Body Temperature 98.8 [degF] [facility], [place] 09-22-2020 11:33-0500 BP Diastolic 63 mm[Hg] [facility] , [place] 09-22-2020 11:33-0500 BP Systolic 129 mm[Hg] [facility] , [place] 09-22-2020 11:33-0500 Pulse (Heart Rate) 65 /min [facility], [place] 09-22-2020 11:33-0500 Pulse Oximetry 97 % [facility] , [place] 09-22-2020 11:33-0500 Respiratory Rate 17 /min [facility], [place] 09-20-2020 06:08-0500 BMI (Body Mass Index) 23.63 kg/m2 [facility] [place] 09-20-2020 06:08-0500 Body weight 70.5 kg [facility] , [place] 09-20-2020 06:08-0500 Height 172.7 cm [facility] , [place] 09-01-2020 11:37-0500 BMI (Body Mass Index) 23.63 kg/m2 [address], [place] 09-01-2020 11:37-0500 Body Temperature 97 [degF] [address] [facility] [place] 09-01-2020 11:37-0500 Body weight 70.[address] , [place] 09-01-2020 11:37-0500 BP Diastolic 65 mm[Hg] [address] , [place] 09-01-2020 11:37-0500 BP Systolic 135 mm[Hg] [facility] [place], [place] 09-01-2020 11:37-0500 Height 172.7 cm [facility] [place], [place] 09-01-2020 11:37-0500 Pulse (Heart Rate) 62 /min [facility] [place], [place] 09-01-2020 11:37-0500 Pulse Oximetry 97 % [address] 09-01-2020 11:37-0500 Respiratory Rate 16 /min [address] [place], [place] Encounters Encounter Date Encounter Type Care Provider Facility Start: 05-06-2024 End: 05-06-2024 ambulatory SANDRA Ayala BURR Not Available Start: 02-05-2024 End: 02-05-2024 ambulatory SANDRA Ayala BURR Not Available Start: 01-24-2024 End: 01-24-2024 ambulatory BARBY J [...] J INDU Not Available Start: 12-26-2023 End: 12-26-2023 ambulatory SANDRA T BURR Not Available Start: 12-26-2023 End: 12-26-2023 ambulatory LUKE GUZMAN Not Available Start: 12-20-2023 End: 12-20-2023 ambulatory LUKE GUZMAN Not Available Start: 12-18-2023 End: 12-19-2023 ambulatory BARBY J INDU Not Available Start: 12-16-2023 End: 12-16-2023 ambulatory BARBY GRIGGS Not Available Start: 12-13-2023 End: 12-13-2023 ambulatory BARBY [place] [facility] Not Available Start: 12-10-2023 End: 12-10-2023 ambulatory BARBY GRIGGS Not Available Start: 12-04-2023 End: 12-04-2023 ambulatory SANDRA Jamie AMINAH Not Available Start: 11-27-2023 End: 11-27-2023 ambulatory SANDRA BURR Not Available Start: 11-22-2023 End: 11-22-2023 ambulatory CHON WILKINSON [facility] Start: 11-19-2023 End: 11-22-2023 ambulatory JUAN CARLOS ALAS [facility] Start: 11-19-2023 End: 11-21-2023 Evaluation and management of inpatient JUAN CARLOS ALAS [facility] Start: 11-11-2023 End: 11-11-2023 ambulatory [facility] JACQUI Not Available Start: 11-08-2023 End: 11-09-2023 ambulatory JUAN CARLOS ALAS [facility] Start: 11-08-2023 Encounter for other preprocedural examination FALSE PASS BISHOP [facility] Start: 11-08-2023 End: 11-08-2023 Patient encounter procedure [facility] Pre-Admission Testing 1 [facility] - Pre Admit Comment on above: 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 Juan Carlos Alas DO Work Phone: [facility] Comment on above: Primary osteoarthrit is of left knee (Primary Dx); Chronic pain of left knee Start: 10-23-2023 End: 10-23-2023 ambulatory JUAN CARLOS HANSON Not Available Start: 09-02-2023 End: 09-02-2023 ambulatory SANDRA BRUR Not Available Start: 02-13-[address] CHARITY [...] . Facility:[facility] Start: 07-05-2022 End: 07-06-2022 ambulatory [facility] Start: 09-20-2020 End: 09-22-2020 Evaluation and management of inpatient [facility] Start: 09-20-2020 End: 09-22-2020 Evaluation and management of inpatient Kareem Diaz Work Phone: [facility] Comment on above: Acute postoperative pain (Primary Dx); Localized osteoarthritis of right knee Start: 09-14-2020 End: 09-15-2020 Patient encounter procedure [facility] Start: 09-14-2020 End: 09-14-2020 Subsequent hospital visit by physician Sarah Beth Ennis Screening Schedule [facility] Covid Screening Comment on above: Preop testing (Prima ry Dx) Start: 09-01-2020 End: 09-06-2020 Patient encounter procedure [facility] Start: 09-01-2020 End: 09-05-2020 Subsequent hospital visit by physician Brandie MCGEE PRE-ADMIT TESTING Start: 05-13-2017 End: 05-14-2017 Ambulatory DEFAULT PHYSICIAN Facility:[facility] Procedures Date Procedure Procedure Detail Performing Clinician Start: 11-08-2023 Antibody screen Pmh 1 Start: 10-23-2023 Radiologic examinati on knee 1/2 views Jr. Juan Carlos Alas DO Work Phone: Start: 11-14-[address] LIBERTAD YIN . Comment on above: Performed By: #### V ITAD, PSASC ####[facility] [address] [place], [place] [address]BlCarolyn Peters Start: 09-22-2020 Basic metabolic pane l calcium total Adali Carrilloosso Work Phone: Start: 09-22-2020 Blood count complete auto&auto difrntl wbc Adali D Delgrosso Work Phone: Start: 09-20-2020 End: 09-20-2020 Arthrp kne condyle&platu medial&lat compartments Kareem Diaz Work Phone: Start: 09-14-2020 COVID-19 Hai Rehana ninaui Work Phone: Start: 09-01-2020 Blood count complete [...] Work Phone: Start: 09-01-2020 EKG REPORT Hpf Uvaldo la Start: 07-29-2020 History of coronary artery bypass grafting History of coronary artery bypass surgery Jr. Bishop MEDEROS Work Phone: Plan of Treatment Date Care Activity Detail Author Start: 01-11-2030 DTaP,Tdap and Td Vaccines (2 - Td or Tdap) DTaP,Tdap and Td Vaccines (2 - Td or Tdap) [facility] Start: 01-11-2030 DTaP/Tdap/Td vaccine (2 - Td) DTaP/Tdap/Td vaccine (2 - Td) [place] Start: 11-08-2024 Adult BMI Screening Adult BMI Screen ing [facility] Start: 11-08-2024 Tobacco Screening Tobacco Screening [facility] Start: 11-19-2023 End: 11-19-2023 Admission to same day surgery center 11/19/2023 11:00 AM EST - 11/19/2023 2:00 PM EST Surgery [facility] [address] [place] [id number] Juan Carlos Alas Jr., DO [address] [facility] [address] [place] [address] REPLACEMENT TOTAL JOINT KNEE [55082 (CPT )] [facility] Comment on above: REPLACEMENT TOTAL INOCENCIA INT KNEE [43852 (CPT )] Start: 11-19-2023 End: 11-19-2023 Anesthesia consultation 11/19/2023 11:00 AM EST Anesthesia Event [facility] Surgery [address] [place] [address] Chon Wilkinson, DO [address] [facility] [place] [address] [facility] Start: 11-19-2023 End: 11-19-2023 Arthrp kne condyle&platu medial&lat compartments REPLACEMENT TOTAL JOINT KNEE left knee degenerative joint disease, right knee adhesive capsulitis 11/19/2023 11:00 AM EST [facility] Start: 11-19-2023 End: 11-19-2023 Manipulation knee joint under general anesthesia MANIPULATION KNEE left knee degenerative joint disease, right knee adhesive capsulitis 11/19/2023 11:00 AM EST [facility] Start: 11-19-2023 Subsequent hospital visit by physician 11/19/2023 11:00 AM EST Hospital Encounter [facility] - Surgery [address] [place] [address] Juan Carlos Alas Jr., DO [address] [facility] [address] [place] [address] [facility] Start: 11-08-2023 End: 11-05-2024 XR Femur and Tibia Views for leg length [facility] Work Phone: Comment on above: Expected: 11/08/2023 , Expires: 11/05/2024 Start: 11-06-2023 End: 11-06-2023 Patient encounter procedure 11/06/2023 8:00 AM EST Office Visit [facility] [address] [place] [address] Jr. Juan Carlos Alas, DO [address] [facility] [address] [place] [address] [facility] Start: 05-17-2023 COVID-19 Vaccine ( season) COVID-19 Vaccine ( season) [facility] Start: 05-17-2023 Influenza vaccination [facility] Start: 09-20-2020 End: 09-20-2020 Hospital Encounter [facility] Comment on above: RIGHT KNEE TOTAL ART HROPLASTY- BIOMET Start: 09-14-2020 End: 09-14-2020 Appointment 09/14/2020 Appointment Lab [facility] Start: 09-10-2020 End: 09-10-2021 COVID-19 COVID-19 Lab Routine Preop testing Expected: 09/10/2020, Expires: 09/10/2021 [place] Comment on above: Expected: 09/10/2020 , Expires: 09/10/2021 Start: 05-20-2018 Pneumococcal Vaccine : 65+ Years (2 - PCV) Pneumococcal Vaccine: 65+ Years (2 - PCV) [facility] Start: 2015 Fall Risk Screening Fall Risk Screen ing [facility] Start: 2000 Administration of varicella zoster vaccine Zoster (Shingles) Vaccine (1 of 2) [facility] Start: 2000 Screening for malign ant neoplasm of colon Colon cancer screen colonoscopy [place], [place] Start: 2000 Shingles Vaccine (1 of 2) Shingles Vaccine (1 of 2) [place] Start: 1962 Depression Screening Depression Scre ening [facility] Start: 1960 Lipid panel Lipid screen [place], [place] Start: 1950 Abdominal aortic aneurysm screening AAA screen [place], [place] Start: 1950 Hepatitis C screening Hepatitis C sc reen [place], [place] Start: 1950 Screening for malign ant neoplasm of colon [facility] Basic metabolic 2000 panel Basic Metabolic Panel Lab STAT Tomorrow AM until discontinued starting 09/22/2020, 1 completed [place] Comment on above: Tomorrow AM until di scontinued starting 09/22/2020, 1 completed CBC Auto Differential CBC Auto D ifferential Lab STAT Tomorrow AM until discontinued starting 09/22/2020, 1 completed [place] Comment on above: Tomorrow AM until di scontinued starting 09/22/2020, 1 completed End: 11-05-2024 Crossmatch RBC Crossmatch RBC Blood Bank Routine Coronary artery disease involving telida coronary artery of telida heart without angina pectoris Preop examination Urinary frequency Hypertension, unspecified type 1 Occurrences starting 11/05/2023 until 11/05/2024 [facility] Comment on above: 1 Occurrences starti ng 11/05/2023 until 11/05/2024 Oxygen therapy [Mini mum Data Set] Initiate Oxygen Therapy Protocol Respiratory Care Routine Daily until discontinued starting 09/20/2020 [facility] [place] Comment on above: Daily until disconti nued starting 09/20/2020 Spirometry panel Incentive ileana metry Respiratory Care Routine Every 2hr while awake until discontinued starting 09/20/2020 [facility] [place] Comment on above: Every 2hr while awak e until discontinued starting 09/20/2020 Immunizations Immunization Date Immunization Notes Care Provider Keron lancaster 07-09-2022 influenza virus vaccine, unspecified formulation Tevinerendira DO Work Phone: [facility] 01-12-2020 tetanus toxoid, redu elyssa diphtheria toxoid, and acellular pertussis vaccine, adsorbed Pmh 1 [employer] [facility] Payers Date Payer Category Payer Unknown 2005 Medicare [id number] 1959 Medicare [id number] 1959 Unknown [id number] 1. 2.840.426138.1.13.239.2.7.3.538510.315 1950 Unknown [id number] 2.16.8 40.1.445300.3.579.2.177 1950 Unknown [id number] 2.16.8 40.1.490513.3.579.2.177 1950 Unknown [id number] 2.16.8 40.1.815328.3.579.2.177 1950 Unknown [id number] 2.16.84 0.1.700611.3.579.2.593 1950 Unknown [id number] 2.16.84 0.1.600665.3.579.2.593 1950 Unknown [id number] 2.16.84 0.1.249756.3.579.2.593 1950 Unknown [id number] 2.16.84 0.1.879214.3.579.2.593 1950 Unknown [id number] 2.16.84 0.1.534132.3.579.2.593 1950 Unknown [id number] 2.16.84 0.1.543493.3.579.2.593 1950 Unknown [id number] 2.16.8 40.1.028707.3.579.2.1286 1950 Unknown [id number] 2.16.8 40.1.013943.3.579.2.1286 1950 Unknown [id number] 2.16.8 40.1.942740.3.579.2.1286 1950 Unknown [id number] 2.16.8 40.1.008595.3.579.2.1286 1950 Unknown [id number] 2.16.8 40.1.815488.3.579.2.1286 1950 Unknown [id number] 2.16.8 40.1.230119.3.579.2.1286 1950 Unknown [id number] 2.16.8 40.1.187229.3.579.2.1286 1950 Unknown [id number] 2.16.8 40.1.814595.3.579.2.1286 1950 Unknown [id number] 2.16.8 40.1.120446.3.579.2.1286 1950 Unknown [id number] 2.16.84 0.1.054232.3.579.2.1259 1950 Unknown [id number] 2.16.84 0.1.872274.3.579.2.1259 1950 Unknown [id number] 2.16.84 0.1.273583.3.579.2.1259 1950 Unknown [id number] 2.16.84 0.1.576504.3.579.2.1259 1950 Unknown [id number] 2.16.84 0.1.991547.3.579.2.1259 1950 Unknown [id number] 2.16.84 0.1.901491.3.579.2.1259 1950 Unknown [id number] 2.16.84 0.1.748944.3.579.2.1259 1950 Unknown [id number] 2.16.84 0.1.584740.3.579.2.1259 1950 Unknown [id number] 2.16.84 0.1.070747.3.579.2.1259 1950 Unknown [id number] 2.16.84 0.1.744341.3.579.2.1259 1950 Unknown [id number] 2.16.84 0.1.115390.3.579.2.1259 1950 Unknown [id number] 2.16.84 0.1.423152.3.579.2.1259 1950 Unknown [id number] 2.16.84 0.1.628318.3.579.2.1259 1950 Unknown [id number] 2.16.84 0.1.711269.3.579.2.1259 1950 Unknown [id number] 2.16.84 0.1.039475.3.579.2.1259 1950 Unknown [id number] 2.16.84 0.1.422316.3.579.2.1259 1950 Unknown [id number] 2.16.84 0.1.742871.3.579.2.1259 1950 Unknown [id number] 2.16.84 0.1.668067.3.579.2.1259 1950 Unknown [id number] 2.16.84 0.1.706474.3.579.2.1259 1950 Unknown [id number] 2.16.84 0.1.574249.3.579.2.1259 1950 Unknown [id number] 2.16.84 0.1.987522.3.579.2.1259 1950 Unknown [id number] 2.16.84 0.1.532318.3.579.2.1259 1950 Unknown [id number] 2.16.84 0.1.775841.3.579.2.1259 1950 Unknown [id number] 2.16.84 0.1.135217.3.579.2.1259 1950 Unknown [id number] 2.16.84 0.1.870982.3.579.2.1259 1950 Unknown [id number] 2.16.84 0.1.700588.3.579.2.1259 1950 Unknown [id number] 2.16.84 0.1.969746.3.579.2.1259 1950 Unknown [id number] 2.16.840 .1.757009.3.579.2.1259 Social History Date Type Detail Facility Start: 09-01-2020 End: 03-22-2023 Tobacco smoking status NHIS Former smoker [place], [place] End: 03-18-1995 History of tobacco use Current smoker [place] Start: 09-01-2020 End: 09-20-2020 Tobacco use and exposure Former user [place] Start: 09-01-2020 End: 11-08-2023 Alcohol intake Current non-drinker of alcohol (finding) [place] Start: 1950 Sex Assigned At Not on file [place] Exposure to SARS-CoV -2 (event) Not sure [place] History of tobacco use Cigarette Smoker [facility] Start: 03-22-2023 End: 05-22-2023 Tobacco use and exposure Smokeless tobacco non-user [facility] Start: 10-23-2023 Alcohol intake Ex-drinker (finding) [facility] Start: 10-03-2020 End: 10-23-2023 History of Social function [facility] Start: 10-03-2020 End: 10-23-2023 Tobacco use panel [facility] Frequency of Alcohol Consumption Never [facility] Start: 1950 Sex Assigned At Male [facility] Start: 01-08-2022 Gender identity Identifies as male gender (finding) [facility] Start: 01-08-2022 Sexual orientation Heterosexual (finding) [facility] Medical Equipment Procedure Code Equipment Code Equipment Origin al Text Equipment Identifier Dates [place] Sut Healicoil W/3 Ultrabraid 5.5mm [id number] Start: 04-01-2018 [place] Sut Healicoil W/3 Ultrabraid 5.5mm [id number] Start: 04-01-2018 [place] Sut Healicoil W/3 Ultrabraid 5.5mm [id number] Start: 04-01-2018 Dup Use [id number] Impl Knee Psn All Poly Pat Ply [...] in at the main lobby of the [facility]- registration desk is straight ahead as soon as you walk in. Tell them you are here for surgery. 2. If you have a Living Will/Durable Power of Safe Deposit Box Rental Clerk for Health Care that is not on [...] after you have bathed. 5. NO nail afghan/acrylic on at least one finger. If you are having a hand, wrist or foot surgery then all nail afghan and artificial/acrylic nails must be removed from [...] please call the Preadmission Testing office at [phone], Mon.-Fri. 7 a.m.-3 p.m. Leave a voicemail [...] with your doctor. documented in this encounter [facility] History of Present illness Narrative 10-23-2023 Jr. 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 documented in this encounter [facility] Clinical Note 02-13-2023 Note Date [...] authenticated by: GENNY DAVIS Date: 2023-02-13 14:02 [facility] Clinical Note 11-19-2022 Note Date & Type [...] authenticated by: ANI HARDING Date: 2022-11-19 15:22 [facility] Progress note 07-05-2022 Note Date & Type [...] pain at that time. 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 Brandwatch on so he feels that he has [...] finger: normal A1 fidencio and AROM Strength: accounts payable processor 5/5, thumb 5/5, interossei 5/5 Sensation: intact [...] finger: normal A1 fidencio and AROM Strength: accounts payable processor 5/5, thumb 5/5, interossei 5/5 Sensation: intact [...] be an additional personal documentation from me. 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 Preop examination Unspecified pre-operative examination Urinary frequency Hypertension, unspecified type documented in this encounter [facility] Summary Purpose Family History No Family History Records FoundNo Family History Records FoundNo Family History Records FoundNo Family History Records FoundNo Family History Records FoundNo Family History Records Found Advance Directives No Advanced Directives Records FoundDocuments on File Type Date Recorded Patient Secretary Expl anation ACP-Advance Directive ACP-Power of Safe Deposit Box Rental Clerk Documents on File Type Date Recorded Patient Secretary Expl anation ACP-Advance Directive ACP-Power of Safe Deposit Box Rental Clerk Latest Code Status on File Code Status [...] SNF and will dishcharge to home with [facility]. , Hai. Notified. * Carolina Ervin PT - 09/22/2020 9:48 AM EST Physical Therapy Facility/Department: [facility] Daily Treatment Note NAME: Levon Bond : 1950 Date of Service: 09/22/2020 Discharge Recommendations: Subacute/Care Home Facility(if declining, recommend PT) RN reports patient [...] of Anginal pain (HCC), Arthritis, Fibromyalgia, Hyperlipidemia, IL (myocardial infarction) (HCC), Mood swings, Prolonged emergence [...] to only perform slight LAQ. OutComes Score AM-PAC Score AM-[facility] Inpatient Mobility Raw Score : 17 (09/22/20946) AM-PAC Inpatient T-Scale Score : 42.13 (09/22/20946) Mobility Inpatient CMS 0-100% Score: 50.57 (09/22/20946) Mobility Inpatient CMS G-Code Modifier : CK (09/22/20946) Goals Short term goals Time Frame for Short term goals: 5 visits: Short term goal 1: Pt. to be indep with bed mob. using sheet as leg distribution engineer for Rt. LE as needed Short term [...] that discharge plan is Home. Agency/Facility chosen: [facility] Awaiting pre-certification no Anticipated discharge date: 09/22/2019. [...] No further needs. Carolina Ervin PT * Desiree Warner MD - 09/22/2020 8:09 AM EST [facility] Office: [phone] Dwayne Orourke DO, Sabino Archibald DO, Lam Mayo DO, Momo Aguilera DO, Desiree Warner MD, Amie Haque MD, Fernando Vera MD, Deanne Clay MD, Twin Be MD, Nadeen Amezcua MD, MD Ashia, Haris Pacheco MD, Shanae Ramirez MD, Sandoval Whitaker DO, Liane Carvajal MD, Beth Gordillo MD, Homar Dennis DO, Sofiya Guzmán MD, Nat Amezcua, DO, Spencer Castellano MD, MD Juan, Donya Monsalve, CO FOUNDER AND CHAIRMAN, Adali [place], CO FOUNDER AND CHAIRMAN, Bambi Muhammad, CO FOUNDER AND CHAIRMAN, Jennifer Keller, [facility],Devyn Trejo, CO FOUNDER AND CHAIRMAN, Ladi Pedersen, CO FOUNDER AND CHAIRMAN, Deyanira Leo, CO FOUNDER AND CHAIRMAN, Mary Jane Bauman, CO FOUNDER AND CHAIRMAN, Kuldip Knight, CO FOUNDER AND CHAIRMAN, Charli Cueva PA-C, Heidi Foote, ZACH, Charline Swanson, CO FOUNDER AND CHAIRMAN, Adelina Adamson, CO FOUNDER AND CHAIRMAN, Madison Maya, CO FOUNDER AND CHAIRMAN, Gemma Lopez, CO FOUNDER AND CHAIRMAN, Lory Schrader, CO FOUNDER AND CHAIRMAN [facility] IN-PATIENT SERVICE [facility] Progress Note 09/22/2020 8:09 AM Name: Levon Bond Acct: [id number] Room: IP Day: 2 Admit Date: 09/20/2020 [...] 125 mL/hr at 09/20/20 2329 PRN Meds: calcium carbonate, nitroGLYCERIN, sodium chloride flush, promethazine OR ondansetron,magnesium hydroxide, oxyCODONE OR oxyCODONE, HYDROmorphone OR HYDROmorphone, chlordiazePOXIDE Data: Past Medical History: has a past medical history of Anginal pain (HCC), Arthritis, Fibromyalgia, Hyperlipidemia, IL (myocardial infarction) (HCC), Mood swings, Prolonged emergence [...] No results for input(s): PROT, LABALBU, LABA1C, O7TDUTV, U6NZQKS, FT4, TSH, AST, ALT, LDH, GGT, ALKPHOS, LABGGT, BILITOT, BILIDIR, AMMONIA, AMYLASE, LIPASE, LACTATE, CHOL, HDL, LDLCHOLESTEROL, CHOLHDLRATIO, TRIG, VLDL, UND47DI, PHENYTOIN, PHENYF, URICACID, POCGLU in the last 72 hours. ABG:No results found for: POCPH, PHART, PH, POCPCO2, CCS2PLS, PCO2, POCPO2, PO2ART, PO2, POCHCO3, FAA2QCT, HCO3, NBEA, PBEA, BEART, BE, THGBART, THB, HZV0QRI, MEOT0NUT, F1WRXBLZ, O2SAT, FIO2 No results found for: SPECIAL [...] Yes Overview Signed 09/20/2020 4:47 PM by Desiree Warner MD on librium History of prolonged emergence from general anesthesia in 198309/20/2020 Yes Overview Signed 09/20/2020 4:47 PM by Desiree Warner MD after one surgery 1983 CAD (coronary artery disease) 09/20/2020 Yes Indigestion Plan: 1. Protonix 40 mg oral daily while in hospital 2. Tums as needed 3. Continue home dose of beta-blockers 4. Continue Librium as needed for mood swings 5. Okay to be discharged from medical standpoint anytime Desiree Warner MD 09/22/2020 8:09 AM * Eloina Hardin RN - 09/22/2020 3:51 AM EST Neuropsychologist noticed more redness on the outer part [...] patient's bandage. Continue to monitor. * Carolina Ervin PT - 09/21/2020 3:12 PM EST Physical Therapy Facility/Department: [facility] Daily Treatment Note NAME: Levon Bond : 1950 Date of Service: 09/21/2020 Discharge Recommendations: Home with Home health PT, Subacute/Care Home Facility, Continue to assess pending progress PT [...] this date, increasing gait deviations. Recommend SNFvs. PT/OP PT as necessary. Specific instructions for [...] of Anginal pain (HCC), Arthritis, Fibromyalgia, Hyperlipidemia, IL (myocardial infarction) (HCC), Mood swings, Prolonged emergence [...] to getting out of bed. OutComes Score AM-[facility] Score -[facility] Inpatient Mobility Raw Score : 17 (09/21/201510) -[facility] Inpatient T-Scale Score : 42.13 (09/21/201510) Mobility Inpatient CMS 0-100% Score: 50.57 (09/21/201510) Mobility Inpatient CMS G-Code Modifier : CK (09/21/201510) Goals Short term goals Time Frame for Short term goals: 5 visits: Short term goal 1: Pt. to be indep with bed mob. using sheet as leg distribution engineer for Rt. LE as needed Short term [...] ok for pt to stay until 09/22/2020. Ev Cruz - 09/21/2020 11:57 AM EST CLINICAL PHARMACY NOTE: MEDS TO [facility] Patient?: No Total # of [...] of Anginal pain (HCC), Arthritis, Fibromyalgia, Hyperlipidemia, IL (myocardial infarction) (HCC), Mood swings, Prolonged emergence [...] to getting out of bed. OutComes Score AM-[facility] Score -[facility] Inpatient Mobility Raw Score : 17 (09/21/201033) [facility] Inpatient T-Scale Score : 42.13 (09/21/201033) Mobility Inpatient CMS 0-100% Score: 50.57 (09/21/201033) Mobility Inpatient CMS G-Code Modifier : CK (09/21/201033) Goals Short term goals Time Frame for Short term goals: 5 visits: Short term goal 1: Pt. to be indep with bed mob. using sheet as leg distribution engineer for Rt. LE as needed Short term [...] 0900 Minutes 55 Carolina Ervin PT * Desiree Warner MD - 09/21/2020 9:10 AM EST [facility] Office: [phone] Dwayne Orourke DO, Sabino Archibald DO, Lam Mayo DO, Momo Aguilera DO, Desiree Warner MD, Amie Haque MD, Fernando Vera MD, Deanne Clay MD, Twin Be MD, Nadeen Amezcua MD, MD Ashia, Haris Pacheco MD, Shanae Ramirez MD, Sandoval Whitaker DO, Liane Carvajal MD, Beth Gordillo MD, Homar Dennis DO, Sofiya Guzmán MD, Nat Amezcua DO, Spencer Castellano MD, MD Juan, Donya Monsalve, CO FOUNDER AND CHAIRMAN, Adali [place], CO FOUNDER AND CHAIRMAN, Bambi Muhammad, CO FOUNDER AND CHAIRMAN, Jennifer Keller, PRODUCT PICKER,Devyn Trejo, CO FOUNDER AND CHAIRMAN, Ladi Pedersen, CO FOUNDER AND CHAIRMAN, Deyanira Loe, CO FOUNDER AND CHAIRMAN, Mary Jane Bauman, CO FOUNDER AND CHAIRMAN, Kuldip Knight, CO FOUNDER AND CHAIRMAN, WILIAN Simmons-C, Heidi Foote, ZACH, Charline Swanson, CO FOUNDER AND CHAIRMAN, Adelina Adamson, CO FOUNDER AND CHAIRMAN, Madison Maya, CO FOUNDER AND CHAIRMAN, Gemma Lopez, CO FOUNDER AND CHAIRMAN, Lory Schrader, CO FOUNDER AND CHAIRMAN [facility] IN-PATIENT SERVICE [facility] Progress Note 09/21/2020 9:10 AM Name: Levon oBnd Acct: [id number] Room: IP Day: 1 Admit Date: 09/20/2020 [...] Infusions: sodium chloride 125 mL/hr at 09/20/20 8849 PRN Meds: nitroGLYCERIN, sodium chloride flush, promethazine OR ondansetron, magnesium hydroxide, oxyCODONE OR oxyCODONE, HYDROmorphone OR HYDROmorphone, chlordiazePOXIDE Data: Past Medical History: has a past medical history of Anginal pain (HCC), Arthritis, Fibromyalgia, Hyperlipidemia, IL (myocardial infarction) (HCC), Mood swings, Prolonged emergence [...] RDW, PLT, MPV, SEDRATE, CRP, INR, DDIMER, CW1OJBFB, LABABSO in the last 72 hours. Invalid input(s): PT Chemistry:No results for input(s): NA, K, CL, CO2, GLUCOSE, BUN, CREATININE, MG, ANIONGAP, LABGLOM,GFRAA, CALCIUM, CAION, PHOS, PSA, PROBNP, TROPHS, CKTOTAL, CKMB, CKMBINDEX, MYOGLOBIN, DIGOXIN, LACTACIDWB in the last 72 hours.No results for input(s): PROT, LABALBU, LABA1C, L5YFTNF, V4JUNQN, FT4, TSH, AST, ALT, LDH, GGT, ALKPHOS, LABGGT, BILITOT, BILIDIR, AMMONIA, AMYLASE, LIPASE, LACTATE, CHOL, HDL, LDLCHOLESTEROL, CHOLHDLRATIO, TRIG, VLDL, NVO33HI, PHENYTOIN, PHENYF, URICACID, POCGLU in the last 72 hours. ABG:No results found for: POCPH, PHART, PH, POCPCO2, UTS7KBT, PCO2, POCPO2, PO2ART, PO2, POCHCO3, XPC5JXS, HCO3, NBEA, PBEA, BEART, BE, THGBART, THB, MWG3DEE, VGDF6LOZ, M2CTXQKC, O2SAT, FIO2 No results found for: SPECIAL [...] Yes Overview Signed 09/20/2020 4:47 PM by Desiree Warner MD on librium History of prolonged emergence from general anesthesia in 198309/20/2020 Yes Overview Signed 09/20/2020 4:47 PM by Desiree Warner MD after one surgery 1983 CAD (coronary artery disease) 09/20/2020 Yes Indigestion Plan: 1. Protonix 40 mg oral daily while in hospital 2. Tums as needed 3. Continue home dose of beta-blockers 4. Continue Librium as needed for mood swings 5. Okay to be discharged from medical standpoint Desiree Warner MD 09/21/2020 9:10 AM * Kareem Diaz MD - 09/21/2020 7:50 AM EST Ortho Ydke-yj-Cirm Discussion of Medical Necessity for Use of [...] 09/20/2020 6:05 PM EST Physical Therapy Facility/Department: [facility] Initial Assessment-Day of Surgery NAME: [...] of Anginal pain (HCC), Arthritis, Fibromyalgia, Hyperlipidemia, IL (myocardial infarction) (HCC), Mood swings, Prolonged emergence [...] Ambulation Assistance: Independent Transfer Assistance: Independent Active Manager Product Management: Yes Mode of Transportation: Car Occupation: Retired Type of occupation: 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 [...] with bed mob. using sheet as leg distribution engineer for Rt. LE as needed Short term [...] of Anginal pain (HCC), Arthritis, Fibromyalgia, Hyperlipidemia, IL (myocardial infarction) (HCC), Mood swings, Prolonged emergence [...] Ambulation Assistance: Independent Transfer Assistance: Independent Active Manager Product Management: Yes Mode of Transportation: Car Occupation: Retired Type of occupation: 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 Does play [employer] for a living now. Leisure & Hobbies: [...] LUE Strength: WFL LUE Strength Comment: Anyi UE's 5/5 RUE Strength Gross RUE Strength: WFL Plan Plan Times per week: 5-6 x/week, 1-2x/day Current Treatment Recommendations: Strengthening, Balance Training, Functional Mobility Training, Endurance Training, Safety Education & Training, Self-Care / ADL, Patient/Caregiver Education & Training, Equipment Evaluation, Education, & procurement, Positioning Goals Short term goals Time Frame for Short term goals: by discharge, pt will Short term goal 1: demo S/IL with ADL transfers and functional mob with good safety/pacing and approp AD/DME Short term goal 2: demo S/IL with toileting routine Short term goal 3: [...] Coronary atherosclerosis of unspecified type of vessel, telida or graft Reason for Referral Status Reason Specialty Diagnoses / Procedures Referred By Contact Referred To Contact Open Patient Preference Physical Therapy Diagnoses Acute postoperative pain Localized osteoarthritis of right knee Kareem Diaz MD [address] [place] [address] Specialty Diagnoses / Procedures Referred By Contac t Referred To Contact Diagnoses 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 1950 Admit date: 09/20/2020 Discharge [...] Patient Instructions: Levon Bond Home Medication Instructions JE:[id number] Printed on:09/21/20 0753 Medication Information aspirin 325 [...] Contact Information Primary Emergency Contact: Hai Bond [facility] Relation: Spouse Past Surgical History: Past Surgical History: Procedure Laterality Date ANKLE SURGERY CARDIAC CATHETERIZATION 12/19/2015 double bypass CARPAL TUNNEL RELEASE Bilateral CERVICAL FUSION COLONOSCOPY CORONARY ARTERY BYPASS GRAFT 2015 Double bypass LEG SURGERY due to accident [place] SHLDR ARTHROSCOP,SURG,W/ROTAT CUFF REPR Left 04/01/2018 SHOULDER ARTHROSCOPY LEFT WITH ROTATOR CUFF REPAIR - KAMARA & NEPHEW performed by Kareem Diaz MD at [facility] OR ROTATOR CUFF REPAIR Left 04/01/2018 with arthroscopy TOTAL KNEE ARTHROPLASTY Right 09/20/2020 RIGHT KNEE TOTAL ARTHROPLASTY performed by Kareem Diaz MD at [facility] OR TRANSESOPHAGEAL ECHOCARDIOGRAM 12/19/2015 Immunization History: There [...] Independent Dressing Assisted Toileting Independent Feeding Independent Parking Enforcer Independent Med Delivery whole Wound Care Documentation [...] all that are sent with patient): Wendi RN SIGNATURE: CASE MANAGEMENT/SOCIAL WORK SECTION Inpatient Status Date: Readmission Risk Assessment Score: Readmission Risk Risk of Unplanned Readmission: 6 Discharging to Facility/ Agency Name: [facility] Details FAX [address] [place] [address] Dialysis Facility (if applicable) Name: Address: Dialysis Schedule: Phone: Fax: Residential Appraiser/Computer Installer signature: PHYSICIAN SECTION Prognosis: Good Condition at [...] THE ORTHOPEDIC COORDINATOR: RAJ FINCH RN, BSN [phone] [email or web address] MAY ALSO MESSAGE ME ON GET [...] orthopedic appointment with surgeon Discharge instructions video: [email or web address] Keep it Clean Post-Operative Home instructions These instructions are to help you have the best possible recovery after your surgical procedure. Carolyn is here to support you. If you have questions, call [phone] Saturday through Saturday from 7:30AM to 8:30PM to speak to a nurse. If you need to speak to someone outside of these hours, call your physician. Incision Do s and Don ts Do wash hands before and after dressing changes or when you have had any contact with your incision. Use hand cereal maker or antibacterial soap. Do keep your incision [...] to your discharge paperwork for further instructions [employer] SURGICAL DRESSING: A waterproof barrier to protect [...] Everywhere. * TKR (Total Knee Replacement): Post-op (Cameroonian) * TKR (Total Knee Replacement): Rehabilitation (Cameroonian) * Constipation (Cameroonian) * DVT (Deep Vein Thrombosis): General Info (Cameroonian) * acetaminophen and oxycodone (Cameroonian) * aspirin (oral) (Cameroonian) * docusate and senna (Cameroonian) documented in this encounter Additional Source Comments (unrecognized sect ion and content) No Status Records FoundNo Status Records FoundNo Status Records FoundNo Status Records FoundNo Status Records FoundNo Status Records Found INFORMATION SOURCE (unrecogn ized section and content) DATE CREATED AUTHOR 03/12/2018 [facility] DATE CREATED AUTHOR AUTHOR'S ORGANIZ ATION 09/23/2020 [facility] DATE CREATED AUTHOR AUTHOR'S ORGANIZ ATION 07/09/2022 [facility] DATE CREATED AUTHOR AUTHOR'S ORGANIZ ATION 02/22/2023 [facility] DATE CREATED AUTHOR AUTHOR'S ORGANIZ ATION 11/23/2023 [facility] DATE CREATED AUTHOR AUTHOR'S ORGANIZ ATION 05/11/2024 [facility] EPIC Reason for Visit (unrecogniz ed section and content) Status Reason Specialty Diagnoses / Procedures Referre d By Contact Referred To Contact Diagnoses Osteoarthritis of right knee DX OA RIGHT KNEE Procedures [place] TOTAL KNEE ARTHROPLASTY RIGHT KNEE TOTAL ARTHROPLASTY- BIOMET Kareem Diaz MD [address] [place] [address] [facility] Reason Comments Pain Ordered Prescriptions (unrec [...] Care Teams (unrecognized sec tion and content) [employer] Relationship Specialty Start Date End Date Charity Yin MD [address] [place] [phone] PCP - General Family Medicine 01/30/23 [employer] Relationship Specialty Start Date End Date Charity Yin MD [address] [place] [address] PCP - General 05/12/18 FOR RECORDS PERTAINING [...] BE BASED ON THE PRIMARY CLINICAL RECORDS. [facility] Common Curriculum [facility]. provides no warranty or guarantee of the accuracy or completeness of information in this document.
[2024-06-22] MEDS: LIDOCAINE HCL 1%-EPINEPHRINE 1:100,000 20 ML MDV INJ (12:49)
[2024-06-22] MEDS: BACITRACIN 0.9 GM PACKET 1 PACKET TOPICAL (13:06)
[2024-06-22 13:07] VITALS: BP 162/76; PULSE 58; O2SAT 94
== END 2024-06-22 13:09 | disposition home or self-care (01) ==
PROVIDERS: Emergency Provider Emergency Medicine; PCP Family Medicine
DX: S81.811A Laceration without foreign body, right lower leg, initial encounter (principal); W22.8XXA Striking against or struck by other objects, initial encounter
CPT/HCPCS: 12002; 99284

== ENCOUNTER 2024-09-04 06:46 | Outpatient (OUT) | payer MEDICARE, OTHER, SELFPAY ==
--- OUTSIDE RECORDS SUMMARY | 2024-09-04 06:50 | XMS_ITS | CCD ---
Author Organization [facility] Care Team Providers Care Director Of Land Acquisition Name Role Phone PHYSICIAN, DEFAULT Unavailable Unavailable PHYSICIAN, DEFAULT Unavailable Unavailable Ruddy Yin Primary Care Provider [phone] RUDDY YIN Primary Care Unavailable KAREEM DIAZ Referring Unavailable RUDDY YIN Primary Care Unavailable RUDDY YIN Primary Care Unavailable BLOOD, MOMO P Consulting Unavailable KAREEM DIAZ Attending Unavailable KAREEM DIAZ Admitting Unavailable LINDATYSON K Consulting Unavailable LADY, JEANNIE Attending Unavailable [...] Unavailable HOY ., DR NASH Attending Unavailable MCKENNEY, DR ANI Adame Consulting Unavailable HOY ., DR NASH Primary Care Unavailable HOY ., DR NASH Consulting Unavailable HOY ., DR NASH Admitting Unavailable HOY ., DR NASH Attending Unavailable HOY ., DR NASH Primary Care Unavailable HOY ., DR NASH Admitting Unavailable HOY ., DR NASH Attending Unavailable HOY ., DR NASH Consulting Unavailable Ruddy Yin MD Primary Care Provider [phone] Ruddy Yin MD Primary Care Provider [phone] JUAN CARLOS ALAS JR Admitting Unavailabl e JUAN CARLOS ALAS JR Attending Unavailabl e ANNAMARIA, RUDDY M Primary Care Unavailable RUDY VIRAMONTES Consulting Unavailable CHON WILKINSON Attending Unavailable ANNAMARIA, RUDDY Logan Primary Care Unavailable JUAN CARLOS ALAS JR Referring Unavailabl e HORonny, RUDDY M Primary Care Unavailable JUAN CARLOS ALAS JR Referring Unavailabl e HORonny, RUDDY M Primary Care Unavailable JUAN CARLOS ALAS JR Attending Unavailabl e STEPJUAN CARLOS QUEZADA JR Referring Unavailabl e HORonny, RUDDY M Primary Care Unavailable JUAN CARLOS ALAS JR Attending Unavailabl e JUAN CARLOS ALAS JR Referring Unavailabl e GURPREETRonny, RUDDY M Primary Care Unavailable JUAN CARLOS ALAS JR Attending Unavailabl e JUAN CARLOS ALAS JR Referring Unavailabl e ANNAMARIA, RUDDY M Primary Care Unavailable JUAN CARLOS ALAS JR Attending Unavailabl JUAN CARLOS Fajardo JR Referring Unavailabl e ANNAMARIA, RUDDY M Primary Care Unavailable JR. ALAS GEORGE [...] Marsh Attending Unavailable SANDRA BURR Referring Unavailable SANDRA BURR Attending Unavailable BARBY GRIGGS Attending Unavailable JR. KAMALA, JUAN CARLOS Fisher Referring Unavaila LUKE Lynn Attending Unavailable JR. ALAS GEORGE C Referring Unavaila ble BARBY GRIGGS Attending Unavailable JR. KAMALA, JUAN CARLOS Fisher Referring Unavaila LUKE Lynn Attending Unavailable JR. KAMALA, JUAN CARLOS Fisher Referring Unavaila ble BARBY GRIGGS Attending Unavailable JR. KAMALA, JUAN CARLOS Fisher Referring Unavaila LUKE Lynn Attending Unavailable JR. KAMALA, JUAN CARLOS Fisher Referring Unavaila BARBY Crandall Attending Unavailable JR. KAMALA, JUAN CARLOS Fisher Referring Unavaila BARBY Crandall Attending Unavailable JR. KAMALA, JUAN CARLOS Fisher Referring Unavaila BARBY Crandall Attending Unavailable JR. KAMALA, JUAN CARLOS Fisher Referring Unavaila BARBY Crandall Attending Unavailable JR. KAMALA, JUAN CARLOS Fisher Referring Unavaila SANDRA Marsh Attending Unavailable SANDRA BURR Attending Unavailable SANDRA BURR Referring Unavailable SAMANTA STERN Attending SANDRA Rosen Attending Unavailable Medications Current Medications Medication Drug Class(es) Dates Sig (Normalized) Sig (Original) Acetaminophen / HYDROcodone (16 sources) Opioid Agonist Start: 09-22-2020 HYDROcodone-acetam inophen (NORCO) 5-325 MG per tablet 1 tablet take 1-2 tablets by mouth every four hours as needed for pain, then take 8 tablets by mouth every twenty-four hours as needed for pain HYDROcodone-acetaminophen ([place]) 5-325 MG tablet 1-2 tablets Orally every 4 hrs prn pain not to exceed 8 in 24 hours Active End: 09-21-2020 take 1 tablet by mouth every six hours as needed for pain HYDROcodone-acetaminophen (NORCO) 5-325 mg per tablet Take 1 tablet by mouth every 6 (six) hours as needed for pain. 0 Active acetaminophen 325 mg / oxyCODONE [...] aspirin 325 mg delayed release oral tablet (17 sources) Platelet Aggregation Inhibitor, Nonsteroidal Anti-inflammator y Drug Start: 09-20-2020 End: 10-05-2020 take 1 tablet by mouth twice daily aspirin 325 MG EC tablet Take 1 tablet by mouth 2 times daily for 14 days 28 tablet 0 09/21/2020 10/05/2020 Active End: 09-21-2020 take 1 tablet by mouth in the morning aspirin 81 MG EC tablet Take 1 tablet by mouth in the morning. Active atorvastatin 40 mg oral tablet (16 sources) HMG-CoA Reductase Inhibitor Start: 07-04-2020 take 40 mg by mouth once daily 40 mg, Oral, NIGHTLY, First dose on Sat09/20/20 at 2100, Post-op cetirizine hydrochloride 10 mg chewable tablet (11 sources) Histamine-1 Receptor Antagonist Start: 07-11-2022 cetirizine (ZyrTEC) 10 MG chewable tablet Chew 10 mg in the morning. 07/11/2022 Active chlordiazePOXIDE hydrochloride 10 mg oral [...] CLEANUP) docusate sodium 50 mg / sennosides, prison 8.6 mg oral tablet (1 source) Start: [...] 1151 First line therapy for constipation. Post-op methylPREDNISolone (9 sources) Corticosteroid Start: 11-04-2023 methylPREDNISolone (Medrol Dospak) 4 MG tablets Indications: Primary osteoarthritis of left knee Follow schedule on package instructions 21 tablet 11/04/2023 Active 24 hr metoprolol succinate 25 mg extended release oral tablet (16 sources) beta-Adrenergic Deondre Start: 01-21-2023 take 0.5 tablet by mouth once daily metoprolol succinate XL (Toprol-XL) 25 MG 24 hr tablet TAKE 1/2 (ONE-HALF) TABLET BY MOUTH ONCE DAILY WITH SUPPER 01/21/2023 Active Start: 01-21-2023 take 0.5 tablet by m outh every twenty-four hours in the morning metoprolol succinate XL (TOPROL XL) 25 mg 24 hr tablet Take 0.5 tablets (12.5 mg total) by mouth in the morning. 0 01/21/2023 Active Start: 09-20-2020 12.5 mg, [...] 09/21/2020 Active nitroglycerin 0.4 mg sublingual tablet (16 sources) Nitrate Vasodilator Start: 04-25-2020 0.4 mg, Ramos blingual, EVERY 5 MIN PRN, Chest pain, Starting Sat09/20/[address] 1 tablet under tongue upon chest pain, wait 5 minutes and may repeat up to 3 doses in 15 minutes. Do not crush or break. Post-op nitroglycerin (N itrostat) 0.[address] 1 tablet as needed by sublingual route. Active ondansetron 4 mg oral tablet (2 [...] 12.5 mg sildenafil 100 mg oral tablet (12 sources) Phosphodiesterase 5 Inhibitor Start: 02-10-2023 take 1 tablet by mouth every twenty-four hours as needed sildenafil (Viagra) 100 MG tablet Take 100 mg by mouth Daily as needed. 02/10/2023 Active 3 ml sodium chloride 9 [...] Post-op traZODone hydrochloride 150 mg oral tablet (16 sources) Serotonin Reuptake Inhibitor Start: 09-20-2020 take 150 mg by mouth once daily 150 mg, Oral, NIGHTLY, First dose on Sat09/20/20 at 2100, Post-op take 1 tablet by mouth at bedtim e traZODone (Desyrel) 100 MG tablet TAKE 1 & 1 2 (ONE & ONE HALF) TABLETS BY MOUTH AT BEDTIME Active take 1 tablet by mouth once melani y traZODone (DESYREL) 50 mg tablet Take 50 mg by mouth nightly. 0 Active traZODone (DESYR EL) 100 MG [...] Problem Date Documented Da te Episodic/Chronic Cataract (11 sources) Bilateral age-related nuclear cataracts; Translations: [Age-related nuclear cataract, bilateral] Onset: 06-03-2023 06-03-2023 Chronic Complication of device; implant or graft (11 sources) Coronary artery bypass graft occlusion; Translations: [Other specified complication of vascular prosthetic devices, implants and grafts, initial encounter] Onset: 06-03-2023 06-03-2023 Chronic Coronary atherosclerosis and other heart disease (20 sources) Coronary arteriosclerosis; Translations: [Atherosclerotic heart disease of [place] coronary artery without angina pectoris] Onset: 04-10-2019 09-20-2020 Chronic Disorders of lipid metabolism (20 sources) Hyperlipidemia; Translations: [Hyperlipidemia, unspecified] Onset: 11-18-2022 09-20-2020 Chronic Essential hypertension (13 sources) Hypertensive disorder; Translations: [Essential (primary) hypertension] [...] of left forearm] Onset: 07-05-2022 Episodic Other and unspecified benign neoplasm (2 sources) Melanocytic nevus of trunk; Translations: [Melanocytic nevi of trunk] 07-06-2024 Episodic Other connective tissue disease (1 source) Presence of left artificial knee joint; Translations: [Presence of left artificial knee joint] Onset: 11-19-2023 Chronic Other connective tissue disease (9 sources) Artificial knee joint present; Translations: [Presence of left artificial knee joint] Onset: 12-10-2023 12-10-2023 Chronic Other connective tissue disease (4 sources) History of total knee arthroplasty; Translations: [Presence of left artificial knee joint] 07-23-2024 Chronic Other nervous system disorders (1 source) Acute postoperative pain; Translations: [Acute postoperative pain] Episodic Other non-traumatic joint disorders (4 sources) Other specified arthritis, left knee; Translations: [OTHER SPECIFIED ARTHRITIS LEFT KNEE] Onset: 11-19-2022 Chronic Other non-traumatic joint disorders (15 sources) Pain in left knee; Translations: [Pain in joint, lower leg] Onset: 12-03-2022 10-23-2023 Episodic Other skin disorders (2 sources) Seborrheic keratosis; Translations: [Other seborrheic keratosis] 07-06-2024 Episodic Residual codes; unclassified (2 sources) Pain, [...] Da te Episodic/Chronic Blindness and vision defects (20 sources) Presbyopia; Translations: [Presbyopia] Onset: 06-03-2023 06-03-2023 Episodic Complications of surgical procedures or medical care (11 sources) Delayed recovery from general anesthesia; Translations: [Other complications of anesthesia, initial encounter] Onset: 06-03-2023 06-03-2023 Episodic Coronary atherosclerosis and other heart disease (1 source) Presence of aortocoronary bypass graft; Translations: [PRESENCE AORTOCORONARY BYPASS GRAFT] Onset: 11-18-2022 Episodic Diabetes mellitus without complication (1 source) Other abnormal glucose; Translations: [OTHER ABNORMAL GLUCOSE] Onset: 11-18-2022 Episodic Mood disorders (11 sources) Mood swings; Translations: [Emotional lability] Onset: 06-03-2023 Resolved: 11-11-2023 06-03-2023 Episodic Other connective tissue disease (13 sources) Fibromyalgia; Translations: [Fibromyalgia] Onset: 06-03-2023 09-20-2020 Episodic Other connective tissue disease (11 sources) Full thickness rotator cuff tear; Translations: [Complete rotator cuff tear or rupture of left shoulder, not specified as traumatic] Onset: 06-03-2023 06-03-2023 Episodic Other non-traumatic joint disorders (9 sources) Bilateral stiffness of knee joints; Translations: [Stiffness of right knee, not elsewhere classified] Onset: 12-10-2023 12-10-2023 Episodic Other screening for suspected conditions (not [...] Name Value Interpretation Reference Range Facil ity XR Knee - left 1 or 2 Viewso n 05-13-2024 Imaging Result: AP and lateral of left knee showed surgical position and alignment of prosthetic components without evidence of loosening or wear to the femoral, tibial, or patellar components. The alignment appeared to be anatomic. There was no evidence of accelerated or asymmetric wear to the patellar button or tibial tray. There was no evidence of fracture and/or dislocation. Impression: Unremarkable left total knee arthroplasty. [facility] Bokee XR Knee - left 1 or 2 ViewsO rdered By: Jr. Alas on 05-13-2024 [facility] Handpressionscar e Work Phone: XR Knee - left 1 or 2 Viewso n 05-06-2024 Radiology Study observation (narrative) [facility] HGB AND HCTon 11-21-2023 Hematocrit (Bld) [Volume fraction] 36.0 % Low 39-49 [facility] Comment on above: Performed By: #### H H #### [facility] ([id number]) [address] [place] [address] Hemoglobin (Bld) [Mass/Vol] 12.3 g/dL Low 13.0-17.0 [facility] Comment on above: Performed By: #### H H #### [facility] ([id number]) [address] [place] [address] HGB AND HCTon 11-20-2023 Hematocrit (Bld) [Volume fraction] 37.5 % Low 39-49 [facility] Comment on above: Performed By: #### H H #### [facility] ([id number]) [address] [place] [address] Hemoglobin (Bld) [Mass/Vol] 12.9 g/dL Low 13.0-17.0 [facility] Comment on above: Performed By: #### H H #### [facility] ([id number]) [address] [place] [address] HGB AND HCTon 11-19-2023 Hematocrit (Bld) [Volume fraction] 42.5 % Normal 39-49 [facility] Comment on above: Performed By: #### H H #### [facility] ([id number]) [address] [place] [address] Hemoglobin (Bld) [Mass/Vol] 14.3 g/dL Normal 13.0-17.0 [facility] Comment on above: Performed By: #### H H #### [facility] ([id number]) [address] [place] [address] XR KNEE LT 1 OR 2 VWSon [...] Fletcher MD on 11/19/2023 2:43 PM Normal [facility] XR BONE LENGTH STUDYon 11-10 XR BONE LENGTH STUDY XR BONE LENGTH STUDY CLINICAL INFORMATION:[place] artery disease involving [place] coronary artery of [place] heart without angina pectoris; Preop examination; Urinary [...] Meraz MD on 11/10/2023 2:18 PM Normal [facility] Bacteria identified Cx Nom ( U)on 11-09-2023 Service comment (Unsp spec) [Interp] <10,000 ORGANISMS/ML NORMAL URO GENITAL BEST [facility] BASIC METABOLIC PANLon 11-08 Anion gap [Moles/Vol] 7 mmol/L Normal 5-15 [facility] Comment on above: Performed By: #### C BCA, BMP #### [facility] ([id number]) [address], [address] [place] [address] Calcium [Mass/Vol] 10.0 mg/dL Normal 8.5-10.5 [facility] Comment on above: Performed By: #### C BCA, BMP #### [facility] ([id number]) [address], [address] [place] [address] Chloride [Moles/Vol] 101 mmol/L Normal 98-109 [facility] Comment on above: Performed By: #### C BCA, BMP #### [facility] ([id number]) [address], [address] [place] [address] CO2 [Moles/Vol] 30 mmol/L Normal 22-32 [facility] Comment on above: Performed By: #### C BCA, BMP #### [facility] ([id number]) [address], [address] [place] [address] Creatinine [Mass/Vol] 0.92 mg/dL Normal 0.60-1.30 [facility] Comment on above: Result Comment: METH OD TRACEABLE TO IDMS STANDARD Performed By: #### C BCA, BMP #### [facility] ([id number]) [address], [address] [place] [address] GFR/1.73 sq M.predicted among non-blacks MDRD (S/P/Bld) [Vol rate/Area] 88 mL/min/{1.73_m2} Normal >59 [facility] Comment on above: Result Comment: Reported eGFR is based on the CKD-EPI 2020 equation that does not use a race coefficient. Performed By: #### C BCA, BMP #### [facility] ([id number]) [address], [address] [place] [address] Glucose [Mass/Vol] 94 mg/dL Normal 65-99 [facility] Comment on above: Performed By: #### C BCA, BMP #### [facility] ([id number]) [address], [address] [place] [address] Potassium [Moles/Vol] 4.7 mmol/L Normal 3.5-5.0 [facility] Comment on above: Performed By: #### C BCA, BMP #### [facility] ([id number]) [address], [address] [place] [address] Sodium [Moles/Vol] 138 mmol/L Normal 134-146 [facility] Comment on above: Performed By: #### C BCA, BMP #### [facility] ([id number]) [address], [address] [place] [address] Urea nitrogen [Mass/Vol] 23 mg/dL Normal 5-27 [facility] Comment on above: Performed By: #### C ALISTAIR, BREANNA #### [facility] ([id number]) [address] [facility], [address] [place] [address] Basic Metabolic Panelon 10-18 Anion gap [Moles/Vol] 7 mmol/L 5 - 15 mmol/L [facility] Calcium [Mass/Vol] 10.0 mg/dL 8.5 - 10. 5 mg/dL [facility] Chloride [Moles/Vol] 101 mmol/L 98 - 109 mmol/L [facility] CO2 [Moles/Vol] 30 mmol/L 22 - 32 mmol/L [facility] Creatinine [Mass/Vol] 0.92 mg/dL 0.60 - 1.30 mg/dL [facility] Comment on above: METHOD TRACEABLE TO IDOH STANDARD eGFR (CKD-EPI)non-race dependent 88 - PINF [facility] Comment on above: Reported eGFR is based on the CKD-EPI 2020 equation that does not use a race coefficient. Glucose [Mass/Vol] 94 mg/dL 65 - 99 mg/dL [facility] Potassium [Moles/Vol] 4.7 mmol/L 3.5 - 5.0 mmol/L [facility] Sodium [Moles/Vol] 138 mmol/L 134 - 146 mmol/L [facility] Urea nitrogen [Mass/Vol] 23 mg/dL 5 - 27 mg/dL [facility] CBC AND AUTO DIFFon 11-08-19 ABSOLUTE BASOPHIL 0.0 X10E9/L Normal 0.0-0.2 [facility] Comment on above: Performed By: #### C ALISTAIR, BMP #### [facility] ([id number]) [address], [address] [place] [address] ABSOLUTE NEUTROPHIL 6.9 X10E9/L High 1.5-6.6 [facility] Comment on above: Performed By: #### C ALISTAIR, BMP #### [facility] ([id number]) [address], [address] [place] [address] Basophils/100 WBC (Bld) 0.4 % Normal [facility] Comment on above: Performed By: #### C ALISTAIR, BMP #### [facility] ([id number]) [address], [address] [place] [address] Eosinophils (Bld) [#/Vol] 0.0 10*3/uL Normal 0.0-0.4 [facility] Comment on above: Performed By: #### C ALISTAIR, BMP #### [facility] ([id number]) [address], [address] [place] [address] Eosinophils/100 WBC (Bld) 0.6 % Normal [facility] Comment on above: Performed By: #### C ALISTAIR, BMP #### [facility] ([id number]) [address], [address] [place] [address] Erythrocyte distribution width (RBC) [Ratio] 13.3 % Normal 11.5-15.0 [facility] Comment on above: Performed By: #### C ALISTAIR, BMP #### [facility] ([id number]) [address], [address] [place] [address] Hematocrit (Bld) [Volume fraction] 45.3 % Normal 39-49 [facility] Comment on above: Performed By: #### C ALISTAIR, BMP #### [facility] ([id number]) [address], [address] [place] [address] Hemoglobin (Bld) [Mass/Vol] 15.3 g/dL Normal 13.0-17.0 [facility] Comment on above: Performed By: #### C ALISTAIR, BMP #### [facility] ([id number]) [address], [address] [place] [address] Lymphocytes (Bld) [#/Vol] 1.1 10*3/uL Normal 1.0-3.5 [facility] Comment on above: Performed By: #### C ALISTAIR, BMP #### [facility] ([id number]) [address], [address] [place] [address] Lymphocytes/100 WBC (Bld) 12.3 % Normal [facility] Comment on above: Performed By: #### C ALISTAIR, BMP #### [facility] ([id number]) [address], [address] [place] [address] MCH (RBC) [Entitic mass] 32.3 pg Normal 27-34 [facility] Comment on above: Performed By: #### C ALISTAIR, BMP #### [facility] ([id number]) [address], [address] [place] [address] MCHC (RBC) [Mass/Vol] 33.7 g/dL Normal 32-36 [facility] Comment on above: Performed By: #### C ALISTAIR, BMP #### [facility] ([id number]) [address], [address] [place] [address] MCV (RBC) [Entitic vol] 96 fL Normal 80-100 [facility] Comment on above: Performed By: #### C ALISTAIR, BMP #### [facility] ([id number]) [address], [address] [place] [address] Monocytes (Bld) [#/Vol] 0.8 10*3/uL Normal 0-0.9 [facility] Comment on above: Performed By: #### C BCA, BMP #### [facility] ([id number]) [address], [address] [place] [address] Monocytes/100 WBC (Bld) 9.0 % Normal [facility] Comment on above: Performed By: #### C ALISTAIR, BMP #### [facility] ([id number]) [address], [address] [place] [address] Neutrophils/100 WBC (Bld) 77.7 % Normal [facility] Comment on above: Performed By: #### Natalia SAINZ, BMP #### [facility] ([id number]) [address], [facility] [address] [place] [address] Platelet mean volume (Bld) [Entitic vol] 8.9 fL Normal 7-12 [facility] Comment on above: Performed By: #### Natalia SAINZ, BMP #### [facility] ([id number]) [address], [facility] [address] [place] [address] Platelets (Bld) [#/Vol] 257 10*3/uL Normal 150-450 [facility] Comment on above: Performed By: #### Natalia SAINZ, BMP #### [facility] ([id number]) [address] [address] [place] [address] RBC COUNT 4.73 X10E12/L Normal 4.10-5.70 [facility] Comment on above: Performed By: #### Natalia SAINZ, BMP #### [facility] ([id number]) [address] [address] WBC (Bld) [#/Vol] 8.9 10*3/uL Normal 4.0-11.0 [facility] Comment on above: Performed By: #### Natalia SAINZ, BMP #### [facility] ([id number]) [address] [address] CBC auto differentialon 10-18 Basophils (Bld) [#/Vol] 0.0 10*3/uL [facility] Basophils/100 WBC (Bld) 0.4 % [facility] Eosinophils (Bld) [#/Vol] 0.0 10*3/uL [facility] Eosinophils/100 WBC (Bld) 0.6 % [facility] Erythrocyte distribution width (RBC) [Ratio] 13.3 % 11.5 - 15.0 % [facility] Hematocrit (Bld) [Volume fraction] 45.3 % 39 - 49 % [facility] Hemoglobin (Bld) [Mass/Vol] 15.3 g/dL 13.0 - 17.0 g/dL [facility] Interpretation and review of laboratory results Abnormal [facility] Lymphocytes (Bld) [#/Vol] 1.1 10*3/uL [facility] Lymphocytes/100 WBC (Bld) 12.3 % [facility] MCH (RBC) [Entitic mass] 32.3 pg 27 - 34 pg [facility] MCHC (RBC) [Mass/Vol] 33.7 g/dL 32 - 36 g/dL [facility] MCV (RBC) [Entitic vol] 96 fL 80 - 100 fL [facility] Monocytes (Bld) [#/Vol] 0.8 10*3/uL [facility] Monocytes/100 WBC (Bld) 9.0 % [facility] Neutrophils (Bld) [#/Vol] 6.9 10*3/uL High [facility] Neutrophils/100 WBC (Bld) 77.7 % [facility] Platelet mean volume (Bld) [Entitic vol] 8.9 fL 7 - 12 fL [facility] Platelets (Bld) [#/Vol] 257 10*3/uL [facility] RBC (Bld) [#/Vol] 4.73 10*6/uL [facility] WBC corrected for nucl RBC Auto (Bld) [#/Vol] 8.9 [facility] ECG 12 leadon 11-08-2023 TRACEMASTERVUE [facility] Type and screen(includes ind irect wanda)on 11-08-2023 ABO O [facility] Rh Nom (Bld) Positive [facility] URINALYSISon 11-08-2023 Bilirubin Ql (U) Negative Normal NEG [facility] BLOOD/HGB Negative Normal NEG [facility] Color (U) YELLOW Normal YELLOW [facility] Glucose Ql (U) Negative Normal NEG [facility] Ketones Ql (U) Negative Normal NEG [facility] Leukocyte esterase Test strip Ql (U) Negative Normal NEG [facility] Nitrite Ql (U) Negative Normal NEG [facility] pH (U) 6.0 [pH] Normal 5.0-8.5 [facility] Protein Ql (U) Negative Normal NEG [facility] Specific gravity (U) [Rel density] 1.010 Normal 1.003-1.035 [facility] TURBIDITY CLEAR Normal CLEAR [facility] Urobilinogen (U) [Mass/Vol] mg/dL Normal <1.1 [facility] URINE CULTUREon 11-08-2023 Bacteria identified Cx Nom (U) CULTURE RESULTS <10,000 ORGANISMS/ML NORMAL URO GENITAL BEST Normal [facility] Comment on above: Performed By: #### 6 30-4 #### [facility] ([id number]) [address] [place] [address], [address] [place] [address] Urinalysison 11-08-2023 Bilirubin Ql (U) Negative Negative^Ne gati ve [facility] Color (U) YELLOW YELLOW^YELLOW [facility] Glucose (U) [Mass/Vol] Negative Negative^Negati ve mg/dL [facility] Hemoglobin Auto test strip Ql (U) Negative Negative^Negati ve [facility] Ketones (U) [Mass/Vol] Negative Negative^Negati ve mg/dL [facility] Leukocyte esterase Auto test strip Ql (U) Negative Negative^Negati ve [facility] Nitrite Auto test strip Ql (U) Negative Negative^Negati ve [facility] pH (U) 6.0 [pH] 5.0 - 8.5 [facility] Protein (U) [Mass/Vol] Negative Negative^Negati ve mg/dL [facility] Specific gravity Refractometry automated (U) [Rel density] 1.010 1.003 - 1.035 [facility] Turbidity Ql (U) CLEAR CLEAR^CLEAR [facility] Urobilinogen Qn (U) NINF [facility] XR Knee - left 1 or 2 Viewso n 10-23-2023 Imaging Result: AP and lateral views of left knee showed severe varus deformity with [id number]-bhrd articulation to the medial joint line, flattening [...] disease left knee with varus deformity [facility] Handpressionscar e Radiology Study observation (narrative) [facility] MRI KNEE LT WO CONon 023 MRI [...] VALERIE CHRISTY Date: 2022-11-27 08:55 Normal [facility] OCC BLD IMMUNO SCREENon 03-0 OCCULT BLOOD Negative Normal NEGATIVE [facility] Comment on above: Performed By: #### O BSCRN #### [facility] [address] [address] [address] Ankit Peters INSULINon 11-15-2022 Insulin 12.6 uIU/mL Normal 2.6-24.9 [facility] Comment on above: Performed By: #### I NSULIN ####[facility] [address] [place], [place] [address]DrCarolyn Peters CBC AUTO DIFFon 11-14-2022 BASO # 0.0 103/ul Normal 0.0-0.1 [facility] Comment on above: Performed By: #### C BC ####[facility] [address] [address]Dr. Ankit Peters Basophils/100 WBC (Bld) 0.5 % Normal 0.2-2.0 [facility] Comment on above: Performed By: #### C BC ####[facility] [address] [place], [place] [address]DrCarolyn Peters EO # 0.1 103/ul Normal 0.0-0.7 [facility] Comment on above: Performed By: #### C BC ####[facility] [address] [place], [place] [address]Dr. Ankit Peters Eosinophils/100 WBC (Bld) 2.0 % Normal 0.9-7.0 [facility] Comment on above: Performed By: #### C BC ####[facility] [address] [place], [place] [address]DrCarolyn Peters Erythrocyte distribution width (RBC) [Ratio] 12.6 % Normal 11.0-15.0 [facility] Comment on above: Performed By: #### C BC ####[facility] [address] [place], [place] [address]Dr. Ankit Peters Hematocrit (Bld) [Volume fraction] 46.6 % Normal 42.0-54.0 [facility] Comment on above: Performed By: #### C BC ####[facility] [address] [place], [place] [address]DrCarolyn Peters Hemoglobin (Bld) [Mass/Vol] 15.3 g/dL Normal 14.0-18.0 [facility] Comment on above: Performed By: #### C BC ####[facility] [address] [id number]. Yolandaradha Fran IG # 0.02 10e3/ul Normal 0.00-0.03 [facility] Comment on above: Performed By: #### C BC ####[facility] [address] [id number]. Ankit Peters IG % 0.3 % Normal 0.0-0.5 [facility] Comment on above: Performed By: #### C BC ####[facility] [address] [id number]. Ankit Peters LYMPH # 1.4 103/ul Normal 1.2-3.8 [facility] Comment on above: Performed By: #### C BC ####[facility] [address] [address]Dr. Ankit Peters Lymphocytes/100 WBC (Bld) 21.5 % Normal 20.5-60.0 [facility] Comment on above: Performed By: #### C BC ####[facility] [address] [address] [id number]. Ankit Peters MANUAL DIFF REQ NO Normal [facility] Comment on above: Performed By: #### C BC ####[facility] [address] [id number]. Ankit Peters MCH (RBC) [Entitic mass] 31.6 pg Normal 25.9-34.0 [facility] Comment on above: Performed By: #### C BC ####[facility] [address] [id number]. Ankit Fran MCHC (RBC) [Mass/Vol] 32.8 g/dL Normal 29.9-35.2 [facility] Comment on above: Performed By: #### C BC ####[facility] [address] [id number]. Ankit Peters MCV (RBC) [Entitic vol] 96.3 fL Critically high 80.0-94.0 [facility] Comment on above: Performed By: #### C BC ####[facility] [address] [id number]. Ankit Peters MONO # 0.6 103/ul Normal 0.3-0.8 [facility] Comment on above: Performed By: #### C BC ####[facility] [address] [id number]. Ankit Peters Monocytes/100 WBC (Bld) 9.3 % Normal 1.7-12.0 [facility] Comment on above: Performed By: #### C BC ####[facility] [address] [id number]. Ankit Peters NEUT # 4.4 103/ul Normal 1.4-6.5 [facility] Comment on above: Performed By: #### C BC ####[facility] [address] [address]Dr. Ankit Peters Neutrophils/100 WBC (Bld) 66.4 % Normal 43.0-75.0 [facility] Comment on above: Performed By: #### C BC ####[facility] [address] [id number]. Ankit Peters Platelet mean volume (Bld) [Entitic vol] 9.5 fL Normal 9.5-13.5 [facility] Comment on above: Performed By: #### C BC ####[facility] [address] [id number]. Ankit Peters PLT 234 103/ul Normal 150-450 [facility] Comment on above: Performed By: #### C BC ####[facility] [address] [id number]. Ankit Peters RBC 4.84 106/ul Normal 4.70-6.10 [facility] Comment on above: Performed By: #### C BC ####[facility] [address] [id number]. Ankit Peters WBC 6.6 103/ul Normal 4.0-11.0 [facility] Comment on above: Performed By: #### C BC ####[facility] [address] [place], [place] [address]Dr. Ankit Peters FREE THYROXINE INDEX T7on FTI 2.82 Normal 1.30-4.50 [facility] Comment on above: Performed By: #### L IPID, URIC, CMP, TSH, T7 #### [facility] [address] [address] [address] Ankit Peters T3U 34.0 % Normal 33.0-40.0 [facility] Comment on above: Performed By: #### L IPID, URIC, CMP, TSH, T7 #### [facility] [address] [address] [address] Ankit Peters T4 [Mass/Vol] 8.30 ug/dL Normal 4.50-12.10 [facility] Comment on above: Performed By: #### L IPID, URIC, CMP, TSH, T7 #### [facility] [address] [address] [address] Ankit Peters GLYCOHEMOGLOBIN A1Con 2022 ADA RECOMMENDATION SEE BELOW Normal [facility] Comment on above: Result Comment: ADA RECOMMENDED LIMIT 4.0 - 6.0 ADA THERAPEUTIC TARGET < 7.0 ACTION SUGGESTED > 7.0 Performed By: #### A 1C #### [facility] [address] [place] [address] Dr. Ankit Peters Glucose [Mass/Vol] 105 mg/dL Normal [facility] Comment on above: Performed By: #### A 1C #### [facility] [address] [address] [address] Ankit Peters HbA1c (Bld) [Mass fraction] 5.3 % Normal 4.5-6.2 [facility] Comment on above: Performed By: #### A 1C #### [facility] [address] [place] [address] Dr. Ankit Peters LIPID PROFILEon 11-14-2022 CHOL-HDL RATIO NORM SEE BELOW Normal [facility] Comment on above: Result Comment: 3.3 - 4.4 LOW RISK 4.4 - 7.1 AVERAGE RISK 7.1 - 11.0 MODERATE RISK >11.0 HIGH RISK Performed By: #### L IPID, URIC, CMP, TSH, T7 #### [facility] [address] [address] [address] Ankit Peters Cholesterol [Mass/Vol] 154 mg/dL Normal <=200 [facility] Comment on above: Performed By: #### L IPID, URIC, CMP, TSH, T7 #### [facility] [address] [address] [address] Ankit Peters Cholesterol in HDL [Mass/Vol] 55 mg/dL Normal 40-60 [facility] Comment on above: Performed By: #### L IPID, URIC, CMP, TSH, T7 #### [facility] [address] [address] [address] Ankit Peters Cholesterol in LDL [Mass/Vol] 84.2 mg/dL Normal [facility] Comment on above: Performed By: #### L IPID, URIC, CMP, TSH, T7 #### [facility] [address] [address] [address] Ankit Peters Cholesterol.total/C holesterol in HDL [Mass ratio] 2.8 {ratio} Normal [facility] Comment on above: Performed By: #### L IPID, URIC, CMP, TSH, T7 #### [facility] [address] [address] [address] Ankit Peters HDL NORMAL > or = 60 mg/dl - LOW CARDIOVASCULAR RISK <40 mg/dl - HIGH CARDIOVASCULAR RISK Normal [facility] Comment on above: Performed By: #### L IPID, URIC, CMP, TSH, T7 #### [facility] [address] [address] [address] Ankit Peters LDL CALC NORMAL SEE BELOW Normal [facility] Comment on above: Result Comment: <100 mg/dl OPTIMAL 100 - 129 mg/dl NEAR OR ABOVE OPTIMAL 130 - 159 mg/dl BORDERLINE HIGH 160 - 189 mg/dl HIGH >190 mg/dl VERY HIGH Performed By: #### L IPID, URIC, CMP, TSH, T7 #### [facility] [address] [place] [address] Dr. Ankit Peters Triglyceride [Mass/Vol] 74 mg/dL Normal <=150 [facility] Comment on above: Performed By: #### L IPID, URIC, CMP, TSH, T7 #### [facility] [address] [address] [address] Ankit Peters VLDL CALC 14.8 mg/dL Normal [facility] Comment on above: Performed By: #### L IPID, URIC, CMP, TSH, T7 #### [facility] [address] [address] [address] Ankit Peters PROF 14(COMP METB)on 023 Albumin [Mass/Vol] 4.1 g/dL Normal 3.4-5.0 [facility] Comment on above: Performed By: #### L IPID, URIC, CMP, TSH, T7 #### [facility] [address] [place] [address] Dr. Ankit Peters Albumin/Globulin [Mass ratio] 1.2 {ratio} Normal [facility] Comment on above: Performed By: #### L IPID, URIC, CMP, TSH, T7 #### [facility] [address] [place] [address] Dr. Ankit Peters ALP [Catalytic activity/Vol] 65 U/L Normal 46-116 [facility] Comment on above: Performed By: #### L IPID, URIC, CMP, TSH, T7 #### [facility] [address] [place] [address] Dr. Ankit Peters ALT [Catalytic activity/Vol] 36 U/L Normal 16-63 [facility] Comment on above: Performed By: #### L IPID, URIC, CMP, TSH, T7 #### [facility] [address] [address] [address] Ankit Peters Anion gap [Moles/Vol] 9.1 mmol/L Normal [facility] Comment on above: Performed By: #### L IPID, URIC, CMP, TSH, T7 #### [facility] [address] [place] [address] Dr. Ankit Peters AST [Catalytic activity/Vol] 29 U/L Normal 15-37 [facility] Comment on above: Performed By: #### L IPID, URIC, CMP, TSH, T7 #### [facility] [address] [address] [address] Ankit Peters Bilirubin [Mass/Vol] 0.6 mg/dL Normal 0.2-1.0 [facility] Comment on above: Performed By: #### L IPID, URIC, CMP, TSH, T7 #### [facility] [address] [place] [address] Dr. Ankit Peters Calcium [Mass/Vol] 9.4 mg/dL Normal 8.5-10.1 [facility] Comment on above: Performed By: #### L IPID, URIC, CMP, TSH, T7 #### [facility] [address] [place] [address] Dr. Ankit Peters Chloride [Moles/Vol] 104 mmol/L Normal 98-107 [facility] Comment on above: Performed By: #### L IPID, URIC, CMP, TSH, T7 #### [facility] [address] [place] [address] Dr. Ankit Peters CO2 [Moles/Vol] 30.2 mmol/L Normal 21.0-32.0 [facility] Comment on above: Performed By: #### L IPID, URIC, CMP, TSH, T7 #### [facility] [address] [place] [address] Dr. Ankit Peters Creatinine [Mass/Vol] 0.90 mg/dL Normal 0.70-1.30 [facility] Comment on above: Performed By: #### L IPID, URIC, CMP, TSH, T7 #### [facility] [address] [place] [address] Dr. Ankit Peters EGFR-AF IRISH >60 Normal >=60 [facility] Comment on above: Performed By: #### L IPID, URIC, CMP, TSH, T7 #### [facility] [address] [place] [address] Dr. Ankit Peters EGFR-NON AF IRISH >60 Normal >=60 [facility] Comment on above: Performed By: #### L IPID, URIC, CMP, TSH, T7 #### [facility] [address] [address] [address] Ankit Peters Globulin (S) [Mass/Vol] 3.4 g/dL Normal [facility] Comment on above: Performed By: #### L IPID, URIC, CMP, TSH, T7 #### [facility] [address] [place] [address] Dr. Ankit Peters Glucose [Mass/Vol] 97 mg/dL Normal 74-106 [facility] Comment on above: Performed By: #### L IPID, URIC, CMP, TSH, T7 #### [facility] [address] [place] [address] Dr. Ankit Peters Potassium [Moles/Vol] 4.3 mmol/L Normal 3.5-5.1 [facility] Comment on above: Performed By: #### L IPID, URIC, CMP, TSH, T7 #### [facility] [address] [place] [address] Dr. Ankit Peters Protein [Mass/Vol] 7.5 g/dL Normal 6.4-8.2 [facility] Comment on above: Performed By: #### L IPID, URIC, CMP, TSH, T7 #### [facility] [address] [place] [address] Dr. Ankit Peters Sodium [Moles/Vol] 139 mmol/L Normal 136-145 [facility] Comment on above: Performed By: #### L IPID, URIC, CMP, TSH, T7 #### [facility] [address] [place] [address] Dr. Ankit Peters Urea nitrogen [Mass/Vol] 17.0 mg/dL Normal 7.0-18.0 [facility] Comment on above: Performed By: #### L IPID, URIC, CMP, TSH, T7 #### [facility] [address] [place] [address] Dr. Ankit Peters Urea nitrogen/Creatinine [Mass ratio] 18.9 mg/mg Normal [facility] Comment on above: Performed By: #### L IPID, URIC, CMP, TSH, T7 #### [facility] [address] [address] [address] Ankit Peters TSHon 11-14-2022 TSH 3.285 uIU/mL Normal 0.358-3.740 [facility] Comment on above: Performed By: #### L IPID, URIC, CMP, TSH, T7 #### [facility] [address] [place], [place] [address] Dr. Ankit Peters URIC ACID SERUMon 11-14-2022 Urate [Mass/Vol] 4.8 mg/dL Normal 3.5-7.2 [facility] Comment on above: Performed By: #### L IPID, URIC, CMP, TSH, T7 #### [facility] [address] [address] [address] Ankit Peters VITAMIN D 25 OHon 11-14-2022 VIT D 25-OH 41.4 ng/mL Normal [facility] Comment on above: Performed By: #### V ITAD, PSASC ####[facility] [address] [id number]. Ankit Peters VIT D RANGES SEE BELOW Normal [facility] Comment on above: Result Comment: <20 ng/mL Vit D deficient 20 - <30 ng/mL Vit D insufficient 30 - 100 ng/mL Vit D sufficient >100 ng/mL Potential Toxicity Performed By: #### V ITAD, PSASC ####[facility] [address] [place], [place] [address]Dr. Ankit Peters Covid-19 PCR (CVDTB)on 08-17 SARS-CoV-2 (COVID-19) RNA KANDICE+probe Ql (Unsp spec) Not detected Normal NOT DETECTED [facility] Comment on above: Result Comment: This test is not yet approved or cleared by the [place] FDA. When there are no FDA-approved or cleared tests available, and other criteria are met, FDA can make tests available under an emergency access mechanism called an Emergency Use Authorization (EUA). The EUA for this test is supported by the Bookstore Manager of Health and Human Service's (HHS's) declaration [...] with SARS-CoV-2. Performed By: #### C VDTB ####[address] [place] [address]Dr. Ankit Peters INFLUENZA A AND B AGon 09-11 INFLUANE SEE BELOW Normal [facility] Comment on above: Result Comment: Nega tive for Flu A protein angiten. Infection due to Flu A cannot be ruled out. Flu A angiten in the sample may be below the detection limit of the test. Performed By: #### I NFLUAB ####[address] [address]Dr. Ankit Peters INFLUBNEGH SEE BELOW Normal [facility] Comment on above: Result Comment: Nega tive for Flu B protein antigen. Infection due to Flu B cannot be ruled out. Flu B antigen in the sample may be below the detection limit of the test. Performed By: #### I NFLUAB ####[address] [address]Dr. Ankit Peters INFLUENZA A AG Negative Normal NEGATIVE SEE COMMENT [facility] Comment on above: Performed By: #### I NFLUAB ####[facility] [address] [place], [place] [address]Dr. Ankit Peters INFLUENZA B AG Negative Normal NEGATIVE SEE COMMENT [facility] Comment on above: Performed By: #### I NFLUAB ####[address] [address]DrCarolyn Peters INTERNAL CONTROLS Within Normal Limits Normal Within Normal Limits [facility] Comment on above: Performed By: #### I NFLUAB ####[place] [address]DrCarolyn Peters Office Visiton 07-05-2022 Follow-up visit [id number] Levon Roach 1950 M Date Provider Department Center 07/05/2022 [facility] No family history on file Level of Service:75006 [place] OFFICE/OUTPATIENT NEW MODERATE MDM 45-59 MINUTES Reason for Visit and Comments: Pain [136] Pain [136] Normal [facility] Basic Metabolic Panelon - Anion gap [Moles/Vol] 7 mmol/L Low 9 - 17 mmol/L [place] Bun/Cre Ratio 17 [place] Calcium [Mass/Vol] 9.1 mg/dL 8.6 - 10. 4 mg/dL [place] Chloride [Moles/Vol] 99 mmol/L 98 - 107 mmol/L [place] CO2 [Moles/Vol] 29 mmol/L 20 - 31 mmol/L [place] Creatinine [Mass/Vol] 0.82 mg/dL 0.7 - 1.2 mg/dL [place] GFR >60 >60 mL/min [place] GFR Non- >60 >60 mL/min [place] GFR/1.73 sq M predicted among non-blacks MDRD (S/P/Bld) [Vol rate/Area] [place] Comment on above: Average GFR for 70 o r more years old: 75 mL/min/1.73sq m Chronic Kidney Disease: <60 mL/min/1.73sq m Kidney failure: <15 mL/min/1.73sq m eGFR calculated using average adult body mass. Additional eGFR calculator available at: http://www.[employer].Server Density/multiple_crcl_2012.htm GFR/1.73 sq M predicted among non-blacks MDRD (S/P/Bld) [Vol rate/Area] NOT REPORTED [place] Glucose [Mass/Vol] 112 mg/dL High 70 - 99 mg/dL [place], [place] Interpretation and review of laboratory results Abnormal [place] Potassium [Moles/Vol] 4.0 mmol/L 3.7 - 5.3 mmol/L [place] Sodium [Moles/Vol] 135 mmol/L 135 - 144 mmol/L [place] Urea nitrogen [Mass/Vol] 14 mg/dL 8 - 23 mg/dL [place] Basic Metabolic Profon 09-22 (cont.) Normal [facility] Comment on above: Result Comment: Aver age GFR for 70 or more years old: 75 mL/min/1.73sq m Chronic Kidney Disease: <60 mL/min/1.73sq m Kidney failure: <15 mL/min/1.73sq m eGFR calculated using average adult body mass. Additional eGFR calculator available at: http://www.[employer]/multiple_crcl_2012.htm Performed By: #### B HARI, CDP #### [facility] [address] [facility] [place], [place] [id number] Skin Diver: Jeremías Donald MD Anion gap [Moles/Vol] 7 mmol/L Low 9-17 [facility] Comment on above: Performed By: #### B HARI, CDP #### [facility] [address] [facility] [place] [address] Skin Diver: Jeremías Donald MD BUN/CRE Ratio 17 Normal 9-20 [facility] Comment on above: Performed By: #### B HARI, CDP #### [facility] [address] [facility] [place] [address] Skin Diver: Jeremías Donald MD Calcium [Mass/Vol] 9.1 mg/dL Normal 8.6-10.4 [facility] Comment on above: Performed By: #### B HARI, CDP #### [facility] [address] [place] [address] Skin Diver: Jeremías Donald MD Chloride [Moles/Vol] 99 mmol/L Normal 98-107 [facility] Comment on above: Performed By: #### B MP, CDP #### [facility] [address] [place] [address] Skin Diver: Jeremías Donald MD CO2 [Moles/Vol] 29 mmol/L Normal 20-31 [facility] Comment on above: Performed By: #### B MP, CDP #### [facility] [address] [place] [address] Skin Diver: Jeremías Donald MD Creatinine [Mass/Vol] 0.82 mg/dL Normal 0.70-1.20 [facility] Comment on above: Performed By: #### B MP, CDP #### [facility] [address] [place] [address] Skin Diver: Jeremías Donald MD GFR, Amer >60 Normal >60 [facility] Comment on above: Performed By: #### B MP, CDP #### [facility] [address] [place] [address] Skin Diver: Jeremías Donald MD GFR,non Amer >60 Normal >60 [facility] Comment on above: Performed By: #### B MP, CDP #### [facility] [address] [place] [address] Skin Diver: Jeremías Donald MD Glucose [Mass/Vol] 112 mg/dL High 70-99 [facility] Comment on above: Performed By: #### B MP, CDP #### [facility] [address] [place] [address] Skin Diver: Jeremías Donald MD Potassium [Moles/Vol] 4.0 mmol/L Normal 3.7-5.3 [facility] Comment on above: Performed By: #### B MP, CDP #### [facility] [address] [place] [address] Skin Diver: Jeremías Donald MD Sodium [Moles/Vol] 135 mmol/L Normal 135-144 [facility] Comment on above: Performed By: #### B MP, CDP #### [facility] [address] [facility] [place] [address] Skin Diver: Jeremías Donald MD Urea nitrogen [Mass/Vol] 14 mg/dL Normal 8-23 [facility] Comment on above: Performed By: #### B MP, CDP #### [facility] [address] [facility] [place] [place] [address] Skin Diver: Jeremías Donald MD Staging: NOT REPORTED Normal [facility] Comment on above: Performed By: #### B MP, CDP #### [facility] [address] [facility] [place] [address] Skin Diver: Jeremías Donald MD CBC Auto Differentialon Basophils (Bld) [#/Vol] 0.03 10*3/uL [place] Basophils/100 WBC (Bld) 0 % 0 - 2 % [place] Differential Type NOT REPORTED [place] Eosinophils (Bld) [#/Vol] 0.10 10*3/uL [place] Eosinophils/100 WBC (Bld) 1 % 1 - 4 % [place] Erythrocyte distribution width (RBC) [Ratio] 12.0 % 11.8 - 14.4 % [place] Hematocrit (Bld) [Volume fraction] 39.6 % Low 40.7 - 50.3 % [place] Hemoglobin (Bld) [Mass/Vol] 12.8 g/dL Low 13 - 17 g/dL [place] Immature granulocytes (Bld) [#/Vol] 0.03 10*3/uL [place] Immature granulocytes (Bld) [#/Vol] 0 % 0 [place] Interpretation and review of laboratory results Abnormal [place] Lymphocytes (Bld) [#/Vol] 0.92 10*3/uL Low [place] Lymphocytes/100 WBC (Bld) 8 % Low 24 - 43 % [place] MCH (RBC) [Entitic mass] 32.1 pg 25.2 - 33.5 pg [place] MCHC (RBC) [Mass/Vol] 32.3 g/dL 28.4 - 34.8 g/dL [place] MCV (RBC) [Entitic vol] 99.2 fL 82.6 - 102.9 fL [place] Monocytes (Bld) [#/Vol] 1.26 10*3/uL High [place] Monocytes/100 WBC (Bld) 11 % 3 - 12 % [place] Platelet mean volume (Bld) [Entitic vol] 10.0 fL 8.1 - 13.5 fL [place] Platelets (Bld) [#/Vol] NOT REPORTED [place] Platelets (Bld) [#/Vol] 203 10*3/uL [place] RBC (Bld) [#/Vol] 3.99 10*6/uL Low 4.21 - 5.7 7 m/uL [place] [place] RBC morphology finding Nom (Bld) NOT REPORTED [place] Segmented neutrophils/100 WBC (Bld) 80 % High 36 - 65 % [place] Segs Absolute 8.94 [place] WBC (Bld) [#/Vol] 11.3 10*3/uL [place] WBC (Bld) [#/Vol] 0.0 10*3/uL 0.0 per 100 WBC M [place] WBC Morphology NOT REPORTED [place] CBC with Diffon 09-22-2020 Abs. Basophil 0.03 k/uL Normal 0.00-0.20 [facility] Comment on above: Performed By: #### B MP, CDP #### [facility] [place] [address] Skin Diver: Jeremías Donald MD Abs.Imm.Granulocyte 0.03 k/uL Normal 0.00-0.30 [facility] Comment on above: Performed By: #### B HARI, CDP #### [facility] [address] [place] [address] Skin Diver: Jeremías Donald MD Abs.Neutrophil (Seg) 8.94 k/uL High 1.50-8.10 [facility] Comment on above: Performed By: #### B HARI, CDP #### [facility] [address] [place] [address] Skin Diver: Jeremías Donald MD Basophils/100 WBC (Bld) 0 % Normal 0-2 [facility] Comment on above: Performed By: #### Anyi NORIEGA, CDP #### [facility] [address] [place] [address] Skin Diver: Jeremías Donald MD Eosinophils (Bld) [#/Vol] 0.10 10*3/uL Normal 0.00-0.44 [facility] Comment on above: Performed By: #### Anyi NORIEGA, CDP #### [facility] [address] [place] [address] Skin Diver: Jeremías Donald MD Eosinophils/100 WBC (Bld) 1 % Normal 1-4 [facility] Comment on above: Performed By: #### B HARI, CDP #### [facility] [address] [place] [address] Skin Diver: Jeremías Donald MD Erythrocyte distribution width (RBC) [Ratio] 12.0 % Normal 11.8-14.4 [facility] Comment on above: Performed By: #### B HARI, CDP #### [facility] [place] [address] Skin Diver: Jeremías Donald MD Hematocrit (Bld) [Volume fraction] 39.6 % Low 40.7-50.3 [facility] Comment on above: Performed By: #### B MP, CDP #### [facility] [address] [place] [address]. [place] [address] Skin Diver: Jeremías Donald MD Hemoglobin (Bld) [Mass/Vol] 12.8 g/dL Low 13.0-17.0 [facility] Comment on above: Performed By: #### B HARI, CDP #### [facility] [address] [place] [address]. [place] [address] Skin Diver: Jeremías Donald MD Immature granulocytes (Bld) [#/Vol] 0 % Normal 0 [facility] Comment on above: Performed By: #### B HARI, CDP #### [facility] [address] [place] [address]. [place] [address] Skin Diver: Jeremías Donald MD Lymphocytes (Bld) [#/Vol] 0.92 10*3/uL Low 1.10-3.70 [facility] Comment on above: Performed By: #### B HARI, CDP #### [facility] [address] [place] [address]. [place] [address] Skin Diver: Jeremías Donald MD Lymphocytes/100 WBC (Bld) 8 % Low 24-43 [facility] Comment on above: Performed By: #### B MP, CDP #### [facility] [address] [place] [address]. [place] [address] Skin Diver: Jeremías Donald MD MCH (RBC) [Entitic mass] 32.1 pg Normal 25.2-33.5 [facility] Comment on above: Performed By: #### B MP, CDP #### [facility] [address] [facility] [place] [address] Skin Diver: Jeremías Donald MD MCHC (RBC) [Mass/Vol] 32.3 g/dL Normal 28.4-34.8 [facility] Comment on above: Performed By: #### B MP, CDP #### [facility] [place] [place] [address] Skin Diver: Jeremías Donald MD MCV (RBC) [Entitic vol] 99.2 fL Normal 82.6-102.9 [facility] Comment on above: Performed By: #### B HARI, CDP #### [facility] [place] [address] Skin Diver: Jeremías Donald MD Monocytes (Bld) [#/Vol] 1.26 10*3/uL High 0.10-1.20 [facility] Comment on above: Performed By: #### B HARI, CDP #### [facility] [place] [address] Skin Diver: Jeremías Donald MD Monocytes/100 WBC (Bld) 11 % Normal 3-12 [facility] Comment on above: Performed By: #### B MP, CDP #### [facility] [address] [place] [address]. [place] [address] Skin Diver: Jeremías Donald MD Neutrophil (Seg) 80 % High 36-65 [facility] Comment on above: Performed By: #### B MP, CDP #### [facility] [address] [place] [address]. [place] [address] Skin Diver: Jeremías Donald MD NRBC Automated 0.0 per 100 WBC Normal 0.0 [facility] Comment on above: Performed By: #### B MP, CDP #### [facility] [address] [place] [address] Skin Diver: Jeremías Donald MD Platelet mean volume (Bld) [Entitic vol] 10.0 fL Normal 8.1-13.5 [facility] Comment on above: Performed By: #### B MP, CDP #### [facility] [place] [address] Skin Diver: Jeremías Donadl MD Platelets (Bld) [#/Vol] 203 10*3/uL Normal 138-453 [facility] Comment on above: Performed By: #### B MP, CDP #### [facility] [place] [address] Skin Diver: Jeremías Donald MD RBC (Bld) [#/Vol] 3.99 10*6/uL Low 4.21-5.77 [facility] Comment on above: Performed By: #### B MP, CDP #### [facility] [place] [address] Skin Diver: Jeremías Donald MD WBC (Bld) [#/Vol] 11.3 10*3/uL Normal 3.5-11.3 [facility] Comment on above: Performed By: #### B MP, CDP #### [facility] [place] [address] Skin Diver: Jeremías Donald MD Auto Diff Performed NOT REPORTED Normal [facility] Comment on above: Performed By: #### B MP, CDP #### [facility] [place] [address] Skin Diver: Jeremías Donald MD Platelets (Bld) [#/Vol] NOT REPORTED Normal [facility] Comment on above: Performed By: #### B MP, CDP #### [facility] [address] [facility] [place] [place] [address] Skin Diver: Jeremías Donald MD RBC morphology finding Nom (Bld) NOT REPORTED Normal [facility] Comment on above: Performed By: #### B MP, CDP #### [facility] [place] [address] Skin Diver: Jeremías Donald MD WBC Morphology NOT REPORTED Normal [facility] Comment on above: Performed By: #### B MP, CDP #### [facility] [address] [facility]. [place], [place] [address] Skin Diver: Jeremías Donald MD COVID-19on 09-15-2020 SARS-CoV-2 Not Detected Not Detected [place] Comment on above: The specimen is NEGATIVE for SARS-CoV-2, the novel coronavirus associated with COVID-19. A negative result does not rule out COVID-19. This test has been authorized by the FDA under an Emergency Use Authorization (EUA) for use by authorized laboratories. [employer] SARS-CoV-2 Reagents for [place] [employer] are designed to detect the virus that causes COVID-19 in patients with signs and symptoms of infection who are suspected of COVID-19. An individual without symptoms of COVID-19 and who is not shedding SARS-CoV-2 virus would expect to have a negative (not detected) result in this assay. Fact sheet for Healthcare Providers: https://www.fda.gov/media/604369/download Fact sheet for Patients: https://www.fda.gov/media/882658/download METHODOLOGY: RT-PCR SARS-CoV-2 [place] SARS-CoV-2, Rapid [place] Source .NASOPHARYNGEAL SWAB [place] [id number] 09-15-2020 SARS-CoV-2 Not Detected Normal NOTDET [facility] Comment on above: Result Comment: The specimen is NEGATIVE for SARS-CoV-2, the novel coronavirus associated with COVID-19. A negative result does not rule out COVID-19. This test has been authorized by the FDA under an Emergency Use Authorization (EUA) for use by authorized laboratories. [employer] SARS-CoV-2 Reagents for [place] [employer] are designed to detect the virus that causes COVID-19 in patients with signs and symptoms of infection who are suspected of COVID-19. An individual without symptoms of COVID-19 and who is not shedding SARS-CoV-2 virus would expect to have a negative (not detected) result in this assay. Fact sheet for Healthcare Providers: https://www.fda.gov/media/323127/download Fact sheet for Patients: https://www.fda.gov/media/005580/download METHODOLOGY: RT-PCR Performed By: #### C OVID #### [facility] [address] [place] [address] Skin Diver: Jeremías Donald MD [address] [address] Skin Diver: Rah Mccollum MD SARS-CoV-2 [facility] Comment on above: Performed By: #### C OVID #### [facility] [address] [place] [address] Skin Diver: Jeremías Donald MD [address] [address] Skin Diver: Rah Mccollum MD SARS-CoV-2,Rapid [facility] Comment on above: Performed By: #### C OVID #### [facility] [address] [place] [address] Skin Diver: Jeremías Donald MD [address] [address] Skin Diver: Rah Mccollum MD [id number] 09-14-2020 SARS-CoV-2 Source .NASOPHARYNGEAL SWAB [facility] Comment on above: Performed By: #### C OVID #### [facility] [address] [place], [place] [id number] Skin Diver: Jeremías Donald MD [facility] TRAFI [address] [place], [place] [id number] Skin Diver: Rah Mccollum MD EKG 12 Leadon 09-02-2020 Atrial Rate 61 BPM [facility], [place] P [place] 66 degrees [facility] P-R Interval 168 ms [facility], [place] Q-T Interval 406 ms [facility] QRS Duration 98 ms [facility] QTc Calculation ([place]) 408 ms [facility] , [place] R [place] 27 degrees [facility] T [place] 51 degrees [facility] Ventricular Rate 61 BPM [facility], [place] Marcell, Mhpn Incoming Ekg Results From [facility] [place] - 09/02/2020 8:25 AM EST Normal sinus rhythm Possible Anterior infarct , age undetermined Abnormal ECG When compared with ECG of 02-APR-2018 10:00, Minimal criteria for Inferior infarct are no longer Present [place] Normal sinus rhythm Possible Anterior infarct , age undetermined Abnormal ECG When compared with ECG of 02-APR-2018 10:00, Minimal criteria for Inferior infarct are no longer Present [place] MRSA DNA Probe, Nasalon 08-16 MRSA, DNA, Nasal NEGATIVE: MRSA DNA not detected by nucleic acid amplification. NEGATIVE: MRSA DNA not detected by nucleic acid amplificati [place] Comment on above: Results should be used as an adjunct to nosocomial control efforts to identify patients needing enhanced precautions. The test is not intended to identify patients with staphylococcal infections. Results should not be used to guide or monitor treatment for MRSA infections. Specimen Description .NASAL SWAB [place] MRSA, DNA, Nasalon 0 MRSA, DNA, Nasal NEGATIVE: MRSA DNA not detected by nucleic acid amplification. Normal [facility] Comment on above: Result Comment: Results should be used as an adjunct to nosocomial control efforts to identify patients needing enhanced precautions. The test is not intended to identify patients with staphylococcal infections. Results should not be used to guide or monitor treatment for MRSA infections. Performed By: #### M RSANO #### [facility] [address] [place], [place] [id number] Skin Diver: Jeremías Donald MD [facility] [address] [place], [place] [id number] Skin Diver: Rah Mccollum MD BUN & Creatinineon 0 Creatinine [Mass/Vol] 1.06 mg/dL 0.7 - 1.2 mg/dL [place] GFR >60 >60 mL/min [place] GFR Non- >60 >60 mL/min [place] GFR/1.73 sq M predicted among non-blacks MDRD (S/P/Bld) [Vol rate/Area] NOT REPORTED [place] GFR/1.73 sq M predicted among non-blacks MDRD (S/P/Bld) [Vol rate/Area] [place] Comment on above: Average GFR for 70 o r more years old: 75 mL/min/1.73sq m Chronic Kidney Disease: <60 mL/min/1.73sq m Kidney failure: <15 mL/min/1.73sq m eGFR calculated using average adult body mass. Additional eGFR calculator available at: http://www.[employer]/multiple_crcl_2011.htm Urea nitrogen [Mass/Vol] 23 mg/dL 8 - 23 mg/dL [place] BUN + Creatinineon 0 (cont.) Normal [facility] Comment on above: Result Comment: Aver age GFR for 70 or more years old: 75 mL/min/1.73sq m Chronic Kidney Disease: <60 mL/min/1.73sq m Kidney failure: <15 mL/min/1.73sq m eGFR calculated using average adult body mass. Additional eGFR calculator available at: http://www.[employer]/multiple_crcl_2012.htm Performed By: #### C DP, BUNCRT, LYTE #### [facility] [address] [place] [address] Skin Diver: Jeremías Donald MD Creatinine [Mass/Vol] 1.06 mg/dL Normal 0.70-1.20 [facility] Comment on above: Performed By: #### C DP, BUNCRT, LYTE #### [facility] [address] [facility] [place] [address] Skin Diver: Jeremías Donald MD GFR, Amer >60 Normal >60 [facility] Comment on above: Performed By: #### C DP, BUNCRT, LYTE #### [facility] [place] [address] Skin Diver: Jeremías Donald MD GFR,non Amer >60 Normal >60 [facility] Comment on above: Performed By: #### C DP, BUNCRT, LYTE #### [facility] [place] [address] Skin Diver: Jeremías Donald MD Urea nitrogen [Mass/Vol] 23 mg/dL Normal 8-23 [facility] Comment on above: Performed By: #### C DP, BUNCRT, LYTE #### [facility] [address] [place] [address]. [place] [address] Skin Diver: Jeremías Donald MD Staging: NOT REPORTED Normal [facility] Comment on above: Performed By: #### C DP, BUNCRT, LYTE #### [facility] [place] [address] Skin Diver: Jeremías Donald MD CBC Auto Differentialon 08-16 Basophils (Bld) [#/Vol] 0.04 10*3/uL [place] Basophils/100 WBC (Bld) 1 % 0 - 2 % [place] Differential Type NOT REPORTED [place] Eosinophils (Bld) [#/Vol] 0.14 10*3/uL [place] Eosinophils/100 WBC (Bld) 2 % 1 - 4 % [place] Erythrocyte distribution width (RBC) [Ratio] 12.3 % 11.8 - 14.4 % [place] Hematocrit (Bld) [Volume fraction] 46.2 % 40.7 - 50.3 % [place] Hemoglobin (Bld) [Mass/Vol] 14.7 g/dL 13 - 17 g/dL [place] Immature granulocytes (Bld) [#/Vol] 0.01 10*3/uL [place] Immature granulocytes (Bld) [#/Vol] 0 % 0 [place] Interpretation and review of laboratory results Abnormal [place] Lymphocytes (Bld) [#/Vol] 1.43 10*3/uL [place] Lymphocytes/100 WBC (Bld) 19 % Low 24 - 43 % [place] MCH (RBC) [Entitic mass] 31.8 pg 25.2 - 33.5 pg [place] MCHC (RBC) [Mass/Vol] 31.8 g/dL 28 - 38 g/dL [place] MCV (RBC) [Entitic vol] 100.0 fL 82.6 - 102.9 fL [place] Monocytes (Bld) [#/Vol] 0.53 10*3/uL [place] Monocytes/100 WBC (Bld) 7 % 3 - 12 % [place] Platelet mean volume (Bld) [Entitic vol] 9.5 fL 8.1 - 13.5 fL [place] Platelets (Bld) [#/Vol] 233 10*3/uL [place] Platelets (Bld) [#/Vol] NOT REPORTED [place] RBC (Bld) [#/Vol] 4.62 10*6/uL 4.21 - 5.7 7 m/uL [place] RBC morphology finding Nom (Bld) NOT REPORTED [place] Segmented neutrophils/100 WBC (Bld) 71 % High 36 - 65 % [place] Segs Absolute 5.25 [place] WBC (Bld) [#/Vol] 7.4 10*3/uL [place] WBC (Bld) [#/Vol] NOT REPORTED 0.0 per 100 WBC [place] WBC Morphology NOT REPORTED [place] CBC with Diffon 09-01-2020 Abs. Basophil 0.04 k/uL Normal 0.00-0.20 [facility] Comment on above: Performed By: #### C DP, BUNCRT, LYTE #### [facility] [address] [place] [address] Skin Diver: Jeremías Donald MD Abs.Imm.Granulocyte 0.01 k/uL Normal 0.00-0.30 [facility] Comment on above: Performed By: #### C DP, BUNCRT, LYTE #### [facility] [address] [place] [address] Skin Diver: Jeremías Donald MD Abs.Neutrophil (Seg) 5.25 k/uL Normal 1.50-8.10 [facility] Comment on above: Performed By: #### C DP, BUNCRT, LYTE #### [facility] [address] [place] [address] Skin Diver: Jeremías Donald MD Basophils/100 WBC (Bld) 1 % Normal 0-2 [facility] Comment on above: Performed By: #### C DP, BUNCRT, LYTE #### [facility] [address] [place] [address] Skin Diver: Jeremías Donald MD Eosinophils (Bld) [#/Vol] 0.14 10*3/uL Normal 0.00-0.44 [facility] Comment on above: Performed By: #### C DP, BUNCRT, LYTE #### [facility] [address] [place] [address] Skin Diver: Jeremías Donald MD Eosinophils/100 WBC (Bld) 2 % Normal 1-4 [facility] Comment on above: Performed By: #### C DP, BUNCRT, LYTE #### [facility] [place] [address] Skin Diver: Jeremías Donald MD Erythrocyte distribution width (RBC) [Ratio] 12.3 % Normal 11.8-14.4 [facility] Comment on above: Performed By: #### C DP, BUNCRT, LYTE #### [facility] [address] [place], [place] [address]ia [facility] [place] [address] Skin Diver: Jeremías Donald MD Hematocrit (Bld) [Volume fraction] 46.2 % Normal 40.7-50.3 [facility] Comment on above: Performed By: #### C DP, BUNCRT, LYTE #### [facility] [address] [place] [address]. [place] [address] Skin Diver: Jeremías Donald MD Hemoglobin (Bld) [Mass/Vol] 14.7 g/dL Normal 13.0-17.0 [facility] Comment on above: Performed By: #### C DP, BUNCRT, LYTE #### [facility] [address] [place], [place] [address]ia [facility] [place] [address] Skin Diver: Jeremías Donald MD Immature granulocytes (Bld) [#/Vol] 0 % Normal 0 [facility] Comment on above: Performed By: #### C DP, BUNCRT, LYTE #### [facility] [place] [address] Skin Diver: Jeremías Donald MD Lymphocytes (Bld) [#/Vol] 1.43 10*3/uL Normal 1.10-3.70 [facility] Comment on above: Performed By: #### C DP, BUNCRT, LYTE #### [facility] [address] [place] [address] Skin Diver: Jeremías Donald MD Lymphocytes/100 WBC (Bld) 19 % Low 24-43 [facility] Comment on above: Performed By: #### C DP, BUNCRT, LYTE #### [facility] [address] [place] [address] Skin Diver: Jeremías Donald MD MCH (RBC) [Entitic mass] 31.8 pg Normal 25.2-33.5 [facility] Comment on above: Performed By: #### C DP, BUNCRT, LYTE #### [facility] [address] [place] [address] Skin Diver: Jeremías Donald MD MCHC (RBC) [Mass/Vol] 31.8 g/dL Normal 28.0-38.0 [facility] Comment on above: Performed By: #### C DP, BUNCRT, LYTE #### [facility] [address] [place] [address] Skin Diver: Jeremías Donald MD MCV (RBC) [Entitic vol] 100.0 fL Normal 82.6-102.9 [facility] Comment on above: Performed By: #### C DP, BUNCRT, LYTE #### [facility] [address] [place] [address] Skin Diver: Jeremías Donald MD Monocytes (Bld) [#/Vol] 0.53 10*3/uL Normal 0.10-1.20 [facility] Comment on above: Performed By: #### C DP, BUNCRT, LYTE #### [facility] [address] [place] [address] Skin Diver: Jeremías Donald MD Monocytes/100 WBC (Bld) 7 % Normal 3-12 [facility] Comment on above: Performed By: #### C DP, BUNCRT, LYTE #### [facility] [address] [place] [address] Skin Diver: Jeremías Donald MD Neutrophil (Seg) 71 % High 36-65 [facility] Comment on above: Performed By: #### C DP, BUNCRT, LYTE #### [facility] [facility] [place] [address] Skin Diver: Jeremías Donald MD Platelet mean volume (Bld) [Entitic vol] 9.5 fL Normal 8.1-13.5 [facility] Comment on above: Performed By: #### C DP, BUNCRT, LYTE #### [facility] [address] [place] [address] Skin Diver: Jeremías Donald MD Platelets (Bld) [#/Vol] 233 10*3/uL Normal 138-453 [facility] Comment on above: Performed By: #### C DP, BUNCRT, LYTE #### [facility] [facility] [place] [address] Skin Diver: Jeremías Donald MD RBC (Bld) [#/Vol] 4.62 10*6/uL Normal 4.21-5.77 [facility] Comment on above: Performed By: #### C DP, BUNCRT, LYTE #### [facility] [place] [address] Skin Diver: Jeremías Donald MD WBC (Bld) [#/Vol] 7.4 10*3/uL Normal 3.5-11.3 [facility] Comment on above: Performed By: #### C DP, BUNCRT, LYTE #### [facility] [place] [address] Skin Diver: Jeremías Donald MD Auto Diff Performed NOT REPORTED Normal [facility] Comment on above: Performed By: #### C DP, BUNCRT, LYTE #### [facility] [address] [place], [place] [address]ia [place] [address] Skin Diver: Jeremías Donald MD NRBC Automated NOT REPORTED Normal 0.0 [facility] Comment on above: Performed By: #### C DP, BUNCRT, LYTE #### [facility] [address] [place] [address]. [place] [address] Skin Diver: Jeremías Donald MD Platelets (Bld) [#/Vol] NOT REPORTED Normal [facility] Comment on above: Performed By: #### C DP, BUNCRT, LYTE #### [facility] [address] [place], [place] [address]ia [facility] [place] [address] Skin Diver: Jeremías Donald MD RBC morphology finding Nom (Bld) NOT REPORTED Normal [facility] Comment on above: Performed By: #### C DP, BUNCRT, LYTE #### [facility] [address] [place] [address]. [place] [address] Skin Diver: Jeremías Donald MD WBC Morphology NOT REPORTED Normal [facility] Comment on above: Performed By: #### C DP, BUNCRT, LYTE #### [facility] [address] [place] [address]. [place] [address] Skin Diver: Jeremías Donald MD Electrolyte Panelon 09-01-20 Anion gap [Moles/Vol] 10 mmol/L 9 - 17 mmol/L [place] Chloride [Moles/Vol] 102 mmol/L 98 - 107 mmol/L [place] CO2 [Moles/Vol] 27 mmol/L 20 - 31 mmol/L [place] [place] Potassium [Moles/Vol] 4.2 mmol/L 3.7 - 5.3 mmol/L [place] Sodium [Moles/Vol] 139 mmol/L 135 - 144 mmol/L [place] Electrolyteson 09-01-2020 Anion gap [Moles/Vol] 10 mmol/L Normal - [facility] Comment on above: Performed By: #### C DP, BUNCRT, LYTE #### [facility] [address] [place] [address] Skin Diver: Jeremías Donald MD Chloride [Moles/Vol] 102 mmol/L Normal 98-107 [facility] Comment on above: Performed By: #### C DP BUNCRT, LYTE #### [facility] [address] [place] [address] Skin Diver: Jeremías Donald MD CO2 [Moles/Vol] 27 mmol/L Normal 20-31 [facility] Comment on above: Performed By: #### C DP BUNCRT, LYTE #### [facility] [address] [place] [address] Skin Diver: Jeremías Donald MD Potassium [Moles/Vol] 4.2 mmol/L Normal 3.7-5.3 [facility] Comment on above: Performed By: #### C DP BUNCRT, LYTE #### [facility] [address] [place] [address] Skin Diver: Jeremías Donald MD Sodium [Moles/Vol] 139 mmol/L Normal 135-144 [facility] Comment on above: Performed By: #### C DP, BUNCRT, LYTE #### [facility] [address] [place], [place] [address], [place] [id number] Skin Diver: Jeremías Donald MD MRSA, DNA, Nasalon 0 Specimen Description .NASAL SWAB Normal [facility] Comment on above: Performed By: #### M RSANO #### [facility] [address] [place] [address] Skin Diver: Jeremías Donald MD [address] [address] Skin Diver: Rah Mccollum MD TYPE AND SCREENon 09-01-2020 ABO/Rh Positive [facility] [place], [place] Arm Band Number [id number] [facility] [place], [place] Expiration Date 09/23/2020,[address] [facility] [place], [place] Type + Screenon 09-01-2020 Type + Screen Sample Expiration 09/23/2020,2359 Arm Band Number [id number] ABO/Rh(D) O POSITIVE Antibody Screen NEGATIVE Normal [facility] Comment on above: Performed By: #### T YS #### [facility] [address] [place] [address] Skin Diver: Jeremías Donald MD Vital Signs Date Time Vital Sign Value Performing Clinician Facility 11-08-2023 09:07-0500 Body height 172.7 cm [facility] [address] [place] [address] 11-08-2023 09:07-0500 Body mass index (BMI) [Ratio] 23.42 kg/m2 [address] 11-08-2023 09:07-0500 Body weight 69.85 kg [facility] [address] [place] [address] 10-23-2023 08:08-0500 Body height 172.7 cm Jr. Stepanic DO Work Phone: [facility] 10-23-2023 08:08-0500 Body mass index (BMI) [Ratio] 23.11 kg/m2 Jr. Stepanic DO Work Phone: [facility] 10-23-2023 08:08-0500 Body weight 68.95 kg Jr. Stepanic DO Work Phone: [facility] 09-22-2020 11:33-0500 Body Temperature 98.8 [degF] Kareem Diaz [facility] [place] 09-22-2020 11:33-0500 BP Diastolic 63 mm[Hg] Kareem Diaz [facility] [place] , [place] 09-22-2020 11:33-0500 BP Systolic 129 mm[Hg] [facility] [place] 09-22-2020 11:33-0500 Pulse (Heart Rate) 65 /min [facility] [place] 09-22-2020 11:33-0500 Pulse Oximetry 97 % Kareem Diaz [facility] [place] , [place] 09-22-2020 11:33-0500 Respiratory Rate 17 /min Kareem Diaz [facility] [place] 09-20-2020 06:08-0500 BMI (Body Mass Index) 23.63 kg/m2 Kareem Diaz [facility], [place] 09-20-2020 06:08-0500 Body [facility].5 [facility] [place] 09-20-2020 06:08-0500 Height 172.7 cm [facility] [place] 09-01-2020 11:37-0500 BMI (Body Mass Index) 23.63 kg/m2 [address]- [place], [place] 09-01-2020 11:37-0500 Body Temperature 97 [degF] [address] [facility] [place] 09-01-2020 11:37-0500 Body weight 70.[address]- [place] , [place] 09-01-2020 11:37-0500 BP Diastolic 65 mm[Hg] [facility] 2 [facility] [place] , [place] 09-01-2020 11:37-0500 BP Systolic 135 mm[Hg] [facility] 2 [facility] [place] 09-01-2020 11:37-0500 Height 172.[address] [facility] [place] , [place] 09-01-2020 11:37-0500 Pulse (Heart Rate) 62 /min [address]- [place], [place] 09-01-2020 11:37-0500 Pulse Oximetry 97 % Sta [facility] [place] , [place] 09-01-2020 11:37-0500 Respiratory Rate 16 /min Sta [facility] [place] Encounters Encounter Date Encounter Type Care Provider Facility Start: 07-23-2024 End: 07-23-2024 Bamboo flowsheet Sandra Burr STATISTICAL METHODS TEACHER Work Phone: [facility] Start: 07-23-2024 End: 07-23-2024 Bamboo flowsheet Sandra Burr STATISTICAL METHODS TEACHER Work Phone: [facility] Start: 07-23-2024 End: 07-23-2024 Office outpatient visit 10 minutes Sandra Burr STATISTICAL METHODS TEACHER Work Phone: [facility] Comment on above: Status post total kn ee replacement, left (Primary Dx); Chronic pain of left knee Start: 07-23-2024 End: 07-23-2024 ambulatory SANDRA BURR Not Available Start: 07-06-2024 End: 07-06-2024 Bamboo flowsheet Samanta Stern PA Work Phone: [facility] Start: 07-06-2024 End: 07-06-2024 Bamboo flowsheet Samanta Stern PA Work Phone: [facility] Start: 07-06-2024 End: 07-06-2024 Office outpatient new 30 minutes Samanta Stern PA Work Phone: [facility] Comment on above: Seborrheic keratosis (Primary Dx); Melanocytic nevus of trunk Start: 07-06-2024 End: 07-06-2024 ambulatory SAMANTA STERN Not Available Start: 05-06-2024 End: 05-06-2024 Bamboo flowsheet Sandra Burr STATISTICAL METHODS TEACHER Work Phone: [facility] Start: 05-06-2024 End: 05-06-2024 Bamboo flowsheet Sandra Burr STATISTICAL METHODS TEACHER Work Phone: [facility] Start: 05-06-2024 End: 05-06-2024 Office outpatient visit 10 minutes Sandra Burr STATISTICAL METHODS TEACHER Work Phone: [facility] Comment on above: Status post total kn ee replacement, left; Primary osteoarthritis of left knee Start: 05-06-2024 End: 05-06-2024 ambulatory SANDRA BURR Not Available Start: 02-05-2024 End: 02-05-2024 ambulatory SANDRA BURR Not Available Start: 01-24-2024 End: 01-24-2024 [...] Available Start: 12-26-2023 End: 12-26-2023 ambulatory SANDRA BURR Not Available Start: 12-26-2023 [...] SANDRA BURR Not Available Start: 11-27-2023 End: 11-27-2023 ambulatory SANDRA BURR Not Available Start: 11-22-2023 End: 11-22-2023 ambulatory CHON WILKINSON [facility] Start: 11-19-2023 End: 11-22-2023 ambulatory JUAN CARLOS ALAS [facility] Start: 11-19-2023 End: 11-21-2023 Evaluation and management of inpatient JUAN CARLOS ALAS [facility] Start: 11-11-2023 End: 11-11-2023 ambulatory MC OSMAN Not Available Start: 11-08-2023 End: 11-09-2023 ambulatory JUAN CARLOS ALAS [facility] Start: 11-08-2023 Encounter for other preprocedural examination [facility] Start: 11-08-2023 End: 11-08-2023 Patient encounter procedure [facility] Pre-Admission Testing [address] [facility] - Pre Admit Comment on above: Coronary artery dise ase involving [place] coronary artery of [place] heart without angina pectoris (Primary Dx); Preop examination; Urinary frequency; Hypertension, unspecified type Start: 11-08-2023 End: 11-08-2023 Preprocedural examination done [address] Start: 10-23-2023 End: 10-23-2023 Follow-up encounter Jr. Juan Carlos Alas DO Work Phone: [facility] Comment on above: Primary osteoarthrit is of left knee (Primary Dx); Chronic pain of left knee Start: 10-23-2023 End: 10-23-2023 ambulatory JUAN CARLOS HANSON Not Available Start: 09-02-2023 End: 09-02-2023 ambulatory SANDRA BURR Not Available Start: 02-13-[address] RUDDY YIN . Facili ty:[facility] Start: 11-27-2022 End: 11-28-[address] RUDDY YIN . Facility:[facility] Start: 11-19-2022 End: 11-20-[address] RUDDY YIN . Facility:[facility] Start: 11-16-2022 End: 11-16-[address] RUDDY YIN . Facility:[facility] Start: 11-14-2022 End: 11-15-[address] RUDDY YIN . Facility:[facility] Start: 09-11-2022 End: 09-11-[address] RUDDY YIN . Facility:[facility] Start: 07-05-2022 End: 07-06-[address] [facility] Start: 09-20-2020 End: 09-22-2020 Evaluation and management of inpatient [facility] Start: 09-20-2020 End: 09-22-2020 Evaluation and management of inpatient Kareem Diaz Work Phone: [facility] Comment on above: Acute postoperative pain (Primary Dx); Localized osteoarthritis of right knee Start: 09-14-2020 End: 09-15-2020 Patient encounter procedure [facility] Start: 09-14-2020 End: 09-14-2020 Subsequent hospital visit by physician Sarah Beth Covid Screening Schedule [facility] Covid Screening Comment on above: Preop testing (Prima ry Dx) Start: 09-01-2020 End: 09-06-2020 Patient encounter procedure [facility] Start: 09-01-2020 End: 09-05-2020 Subsequent hospital visit by physician Brandie Thomas Rm 2 [facility] PRE-ADMIT TESTING Start: 05-13-2017 End: 05-14-2017 Ambulatory DEFAULT PHYSICIAN Facility:[facility] Procedures Date Procedure Procedure Detail Performing Clinician Start: 05-06-2024 Radiologic examinati on knee 1/2 views Sandra Burr NP Work Phone: Start: 11-08-2023 Antibody screen [facility] 1 Start: 10-23-2023 Radiologic examinati on knee 1/2 views Jr. Juan Carlos Alas DO Work Phone: Start: 11-14-[address] LIBERTAD YIN . Comment on above: Performed By: #### V ITAD, PSASC ####[place] [id number] Peters Start: 09-22-2020 Basic metabolic pane l calcium total Adali Murillo Work Phone: Start: 09-22-2020 Blood count complete auto&auto difrntl wbc Adali Murillo Work Phone: Start: 09-20-2020 End: 09-20-2020 Arthrp kne condyle&platu medial&lat compartments Kareem Diaz Work Phone: Start: 09-14-2020 COVID-19 Hai Jau regui Work Phone: Start: 09-01-2020 Blood count complete auto&auto difrntl wbc RUDDY HOY Start: 09-01-2020 BUN AND CREATININE BENJAMÍN LAS HOY Start: 09-01-2020 Electrolyte panel DOUGL HOY Start: 09-01-2020 TYPE AND SCREEN RUDDY HOY Start: 09-01-2020 Iadna s aureus methicillin resist amp probe tq RUDDY HOY Start: 09-01-2020 Ecg routine ecg w/le ast 12 lds w/i&r RUDDY HOY Start: 09-01-2020 EKG REPORT RUDDY HO Y Start: 09-01-2020 Antibody screen Sta [...] Td Vaccines (2 - Td or Tdap) [facility] Start: 01-11-2030 DTaP/Tdap/Td vaccine (2 - Td) DTaP/Tdap/Td vaccine (2 - Td) [facility] [place] [place] Start: 07-12-2025 End: 07-12-2025 Patient encounter procedure 07/12/2025 9:00 AM EDT Office Visit [facility] [address] [place] [address] Samanta Stern, WILIAN [address] [place] [address] [facility] Start: 11-11-2024 End: 11-11-2024 Patient encounter procedure 11/11/2024 9:30 AM EST Office Visit [facility] [address] [place] [address] Sandra Burr, STATISTICAL METHODS TEACHER [address] [place], [place] [phone] [facility] Start: 11-08-2024 Adult BMI Screening Adult BMI Screen ing [facility] Start: 11-08-2024 Tobacco Screening Tobacco Screening [facility] Start: 07-23-2024 End: 07-23-2024 Patient encounter procedure 07/23/2024 11:15 AM EST Office Visit [facility] [address] [place] [address] Sandra Burr, STATISTICAL METHODS TEACHER [address] [place], [place] [id number] Arrived [facility] Comment on above: Arrived Start: 07-06-2024 End: 07-06-2024 Patient encounter procedure 07/06/2024 10:10 AM EDT Office Visit [facility] [address] [place] [address] Samanta Stern PA [address] [place] [address] Arrived [facility] Comment on above: Arrived Start: 06-26-2024 End: 06-26-2024 Patient encounter procedure 06/26/2024 10:50 AM EDT Office Visit [facility] [address] [place] [address] Samanta Stern PA [address] [place] [address] [facility] Start: 05-17-2024 Influenza vaccination Influenza Vacc ine (#1) [facility] Start: 05-06-2024 End: 05-06-2024 Patient encounter procedure 05/06/2024 9:30 AM EDT Office Visit [facility] [address] [place] [phone] Sandra Burr, STATISTICAL METHODS TEACHER [address] [place], [place] [phone] Status post total knee replacement, left; Primary osteoarthritis of left knee [facility] Comment on above: Status post total kn ee replacement, left; Primary osteoarthritis of left knee Start: 11-19-2023 End: 11-19-2023 Admission to same day surgery center 11/19/2023 11:00 AM EST - 11/19/2023 2:[address] [facility] [address] [place] [phone] Juan Carlos Alas Jr., DO [address] [facility] [address] [place] [address] REPLACEMENT TOTAL JOINT KNEE [10078 (CPT )] [facility] Comment on above: REPLACEMENT TOTAL INOCENCIA INT KNEE [48070 (CPT )] Start: 11-19-2023 End: 11-19-2023 Anesthesia consultation 11/19/2023 11:00 AM EST Anesthesia Event [facility] [address] [place] [address] Chon Wilkinson, DO [address] [facility] [place] [address] [facility] Start: 11-19-2023 End: 11-19-2023 Arthrp kne condyle&platu medial&lat compartments REPLACEMENT TOTAL JOINT KNEE left knee degenerative joint disease, right knee adhesive capsulitis 11/19/2023 11:00 AM EST [facility] Start: 11-19-2023 End: 11-19-2023 Manipulation knee joint under general anesthesia MANIPULATION KNEE left knee degenerative joint disease, right knee adhesive capsulitis 11/19/2023 11:00 AM EST [facility] Start: 11-19-2023 Subsequent hospital visit by physician 11/19/2023 11:00 AM EST Hospital Encounter [facility] [address] [place] [phone] Juan Carlos Alas Jr., DO [address] [facility] [address] [place] [address] [facility] Start: 11-08-2023 End: 11-05-2024 XR Femur and Tibia Views for leg length [facility] Work Phone: Comment on above: Expected: 11/08/2023 , Expires: 11/05/2024 Start: 11-06-2023 End: 11-06-2023 Patient encounter procedure 11/06/2023 8:00 AM EST Office Visit [facility] [address] [place] [phone] Jr. Juan Carlos Alas, DO [address] [facility] [address] [place] [address] [facility] Start: 05-17-2023 COVID-19 Vaccine ( season) COVID-19 Vaccine ( season) [facility] Start: 05-17-2023 Influenza vaccination N [facility] Start: 09-20-2020 End: 09-20-2020 Hospital Encounter [facility] Comment on above: RIGHT KNEE TOTAL ART HROPLASTY- BIOMET Start: 09-14-2020 End: 09-14-2020 Appointment 09/14/2020 Appointment Lab [facility] Covid Screening Start: 09-10-2020 End: 09-10-2021 COVID-19 COVID-19 Lab Routine Preop testing Expected: 09/10/2020, Expires: 09/10/2021 [place] Comment on above: Expected: 09/10/2020 , Expires: 09/10/2021 Start: 05-20-2018 Pneumococcal Vaccine : 65+ Years (2 - PCV) Pneumococcal Vaccine: 65+ Years (2 - PCV) [facility] Start: 05-20-2018 Pneumococcal Vaccine : 65+ Years (2 of 2 - PCV) Pneumococcal Vaccine: 65+ Years (2 of 2 - PCV) [facility] Start: 2015 Fall Risk Screening Fall Risk Screen ing [facility] Start: 2000 Administration of varicella zoster vaccine Zoster (Shingles) Vaccine (1 of 2) [facility] Start: 2000 Screening for malign ant neoplasm of colon Colon cancer screen colonoscopy [place] Start: 2000 Shingles Vaccine (1 of 2) Shingles Vaccine (1 of 2) [place] Start: 1962 Depression Screening Depression Scre ening [facility] Start: 1960 Lipid panel Lipid screen [place], [place] Start: 1950 Abdominal aortic aneurysm screening AAA screen [place], [place] Start: 1950 Hepatitis C screening Hepatitis C sc reen [place], [place] Start: 1950 Screening for malign ant neoplasm of colon [facility] Basic metabolic 2000 panel Basic Metabolic Panel Lab STAT Tomorrow AM until discontinued starting 09/22/2020, 1 completed [place] Comment on above: Tomorrow AM until di scontinued starting 09/22/2020, 1 completed CBC Auto Differential CBC Auto D ifferential Lab STAT Tomorrow AM until discontinued starting 09/22/2020, 1 completed [place] Comment on above: Tomorrow AM until di scontinued starting 09/22/2020, 1 completed End: 11-05-2024 Crossmatch RBC Crossmatch RBC Blood Bank Routine Coronary artery disease involving [place] coronary artery of [place] heart without angina pectoris Preop examination Urinary frequency Hypertension, unspecified type 1 Occurrences starting 11/05/2023 until 11/05/2024 [facility] Comment on above: 1 Occurrences starti ng 11/05/2023 until 11/05/2024 Oxygen therapy [Mini [facility] Data Set] Initiate Oxygen Therapy Protocol Respiratory Care Routine Daily until discontinued starting 09/20/2020 [place] Comment on above: Daily until disconti nued starting 09/20/2020 Spirometry panel Incentive ileana metry Respiratory Care Routine Every 2hr while awake until discontinued starting 09/20/2020 [place] Comment on above: Every 2hr while awak e until discontinued starting 09/20/2020 Immunizations Immunization Date Immunization Notes Care Provider Keron de oliveira 07-09-2022 Influenza, Seasonal, Quadrivalent, Adjuvanted Sandra Burr NP Work Phone: [facility] 07-09-2022 influenza virus vacc ine, unspecified formulation Jr. Alas DO Work Phone: [facility] 06-13-2021 Seasonal trivalent influenza vaccine, adjuvanted, preservative free Sandra Burr NP Work Phone: [facility] 07-13-2020 Seasonal trivalent influenza vaccine, adjuvanted, preservative free Sandra Burr NP Work Phone: [facility] 01-12-2020 tetanus toxoid, redu elyssa diphtheria toxoid, and acellular pertussis vaccine, adsorbed [facility] 1 [facility] 07-10-2017 influenza virus vacc ine, unspecified formulation Sandra Burr NP Work Phone: [facility] 06-17-2017 influenza, injectabl e, quadrivalent, preservative free Sandra Burr NP Work Phone: [facility] 05-20-2017 pneumococcal polysaccharide vaccine, 23 valent Sandra Burr STATISTICAL METHODS TEACHER Work Phone: [facility] 01-04-2017 pneumococcal polysaccharide vaccine, 23 valent Sandra Burr STATISTICAL METHODS TEACHER Work Phone: [facility] Healthcare Payers Date Payer Category Payer Private Health Insurance [employer] [id number] 2016 Unknown 2005 Medicare [id number] 1959 Medicare [id number] [id number]. [id number] 1959 Unknown [id number] 1.2.840.845928.1.13.239.2. 7.3.445071.315 1950 Unknown [id number] 2.16.840.1.047540.3.579.2. 177 1950 Unknown [id number] 2.16.840.1.332152.3.579.2. 177 1950 Unknown [id number] 2.16.840.1.894137.3.579.2. 177 1950 Unknown [id number] 2.16.840.1.170082.3.579.2. 593 1950 Unknown [id number] 2.16.840.1.209716.3.579.2. 593 1950 Unknown [id number] 2.16.840.1.622031.3.579.2. 593 1950 Unknown [id number] 2.16.840.1.222335.3.579.2. 593 1950 Unknown [id number] 2.16.840.1.775326.3.579.2. 593 1950 Unknown [id number] 2.16.840.1.460430.3.579.2. 593 1950 Unknown [id number] 2.16.840.1.592024.3.579.2. 1286 1950 Unknown [id number] 2.16.840.1.930310.3.579.2. 1286 1950 Unknown [id number] 2.16.840.1.380344.3.579.2. 1286 1950 Unknown [id number] 2.16.840.1.074011.3.579.2. 1286 1950 Unknown [id number] 2.16.840.1.946467.3.579.2. 1286 1950 Unknown [id number] 2.16.840.1.678885.3.579.2. 1286 1950 Unknown [id number] 2.16.840.1.595208.3.579.2. 1286 1950 Unknown [id number] 2.16.840.1.613953.3.579.2. 1286 1950 Unknown [id number] 2.16.840.1.055226.3.579.2. 1286 1950 Unknown [id number] 2.16.840.1.380489.3.579.2. 1259 1950 Unknown [id number] 2.16.840.1.776828.3.579.2. 1259 1950 Unknown [id number] 2.16.840.1.489977.3.579.2. 1259 1950 Unknown [id number] 2.16.840.1.464524.3.579.2. 1259 1950 Unknown [id number] 2.16.840.1.060408.3.579.2. 1259 1950 Unknown [id number] 2.16.840.1.646001.3.579.2. 1259 1950 Unknown [id number] 2.16.840.1.988606.3.579.2. 125 1950 Unknown [id number] 2.16.840.1.109172.3.579.2. 1258 1950 Unknown [id number] 2.16.840.1.212314.3.579.2. 1259 1950 Unknown [id number] 2.16.840.1.771201.3.579.2. 1258 1950 Unknown [id number] 2.16.840.1.175248.3.579.2. 125 1950 Unknown [id number] 2.16.840.1.287841.3.579.2. 1258 1950 Unknown [id number] 2.16.840.1.059088.3.579.2. 9 1950 Unknown [id number] 2.16.840.1.011946.3.579.2. 1259 1950 Unknown [id number] 2.16.840.1.158173.3.579.2. 1259 1950 Unknown [id number] 2.16.840.1.518119.3.579.2. 1259 1950 Unknown [id number] 2.16.840.1.549118.3.579.2. 1258 1950 Unknown [id number] 2.16.840.1.224881.3.579.2. 1259 1950 Unknown [id number] 2.16.840.1.994947.3.579.2. 125 1950 Unknown [id number] 2.16.840.1.678059.3.579.2. 9 1950 Unknown [id number] 2.16.840.1.372156.3.579.2. 9 1950 Unknown [id number] 2.16.840.1.716901.3.579.2. 9 1950 Unknown [id number] 2.16.840.1.969641.3.579.2. 9 1950 Unknown [id number] 2.16.840.1.756010.3.579.2. 9 1950 Unknown [id number] 2.16.840.1.102047.3.579.2. 9 1950 Unknown [id number] 2.16.840.1.905794.3.579.2. 9 1950 Unknown [id number] 2.16.840.1.792543.3.579.2. 9 1950 Unknown [id number] 2.16.840.1.983917.3.579.2. 9 1950 Unknown [id number] 2.16.840.1.096020.3.579.2. 9 1950 Unknown [id number] 2.16.840.1.769994.3.579.2. 1259 Social History Date Type Detail Facility Start: 09-01-2020 End: 05-22-2023 Tobacco smoking status NHIS Former sm[place] End: 03-18-1995 History of tobacco use Current [place] Start: 09-01-2020 End: 09-20-2020 Tobacco use and exposure Former user [place] Start: 09-01-2020 End: 11-08-2023 Alcohol intake Current non-drinker of alcohol (finding) [place] Start: 1950 Sex Assigned At Not on file [place] Exposure to SARS-CoV -2 (event) Not sure [place] History of tobacco use Cigarette Smoker [facility] Start: 03-22-2023 End: 05-22-2023 Tobacco use and exposure Smokeless tobacco non-user [facility] Start: 10-23-2023 End: 05-06-2024 Alcohol intake Ex-drinker (finding) [facility] Start: 10-23-2023 End: 05-06-2024 History of Social function [facility] Start: 10-23-2023 End: 05-06-2024 Tobacco use panel [facility] Frequency of Alcohol Consumption Never [facility] Start: 1950 Sex Assigned At Male [facility] Start: 01-08-2022 Gender identity Identifies as male gender (finding) [facility] Start: 01-08-2022 Sexual orientation Heterosexual (finding) [facility] Medical Equipment Procedure Code Equipment Code Equipment Origin al Text Equipment Identifier Dates [place] Sut Healicoil W/3 Ultrabraid 5.5mm [id number] Start: 04-01-2018 [place] S[place] Healicoil W/3 Ultrabraid 5.5mm [id number] Start: 04-01-2018 [place] S[place] Healicoil W/3 Ultrabraid 5.5mm [id number] Start: 04-01-2018 Dup Use [id number] Impl Knee Psn All Poly Pat Ply [...] Hex Fem Persona [id number] Start: 09-20-2020 Clinical Notes 07-05-2022 to 07-23-2024 Sandra Burr NP - 07/23/2024 11:15 AM WILIAN Kaye - 07/06/2024 10:10 AM Antonio Burr NP - 05/06/2024 9:30 AM EDTPatient InstructionsJr. Juan Carlos Alas, DO - 10/23/2023 8:00 AM EST Note Date & Type Note Facility 07-23-2024 History of Present illness Narrative Images from the original note were not included. Chief Complaint Patient presents with Left Knee - Follow-up HISTORY OF PRESENT ILLNESS: Levon Roach is an 74 y.o. @ male. (EST PT) PO LT TKA W/RT KNEE ЕКАТЕРИНА 11/19/23 (8 MTHS). XRAY CHANGE 05/06/24 XRAY CHANGE 12/26/23 XRAY CHANGE 11/27/23 PHYSICAL THERAPY @ [facility] STATES HE WILL BE ON HIS FEET FOR ABOUT 4-5 HOURS AND WILL HAVE PAIN. PAIN WILL BE ANTERIOR. HAS TO TAKE VICODIN. UNABLE TO GET UP FROM THE GROUND. PAIN WITH KNEELING. USING BIOFREEZE PRN. ADMITS SWELLING. ADMITS GIVING OUT. DOES NOT WAKE AT HS. ALLERGIES: No Known Allergies HOME MEDICATIONS: Current Outpatient Medications Medication Instructions aspirin 81 MG EC tablet 1 tablet, Daily atorvastatin (Lipitor) 40 MG tablet TAKE 1 TABLET BY MOUTH ONCE DAILY FOR 90 DAYS cetirizine (ZYRTEC) 10 mg, Daily HYDROcodone-acetaminophen ([place]) 5-325 MG tablet 1-2 tablets Orally every 4 hrs prn pain not to exceed 8 in 24 hours methylPREDNISolone (Medrol Dospak) 4 MG tablets Follow schedule on package instructions metoprolol succinate XL (Toprol-XL) 25 MG 24 hr tablet TAKE 1/2 (ONE-HALF) TABLET BY MOUTH ONCE DAILY WITH SUPPER nitroglycerin (Nitrostat) 0.[address] 1 tablet as needed by sublingual route. sildenafil (VIAGRA) 100 mg, Daily PRN traZODone (Desyrel) 100 MG tablet TAKE 1 & 1 2 (ONE & ONE HALF) TABLETS BY MOUTH AT BEDTIME REVIEW OF SYSTEMS: General: Denies fever, fatigue or weight loss Skin: Denies rash, sores or skin changes Eyes: Denies visual disturbance or pain GI: Denies indigestion or abdominal pain Neuro: Denies numbness or tingling, denies new onset paralysis Musculoskeletal: ( see note) PHYSICAL EXAM: Left Knee Exam Muscle Strength The patient has normal left knee strength. Tenderness Left knee tenderness location: anterior and lateral knee. Range of Motion Extension: -5 Flexion: 100 Tests Varus: negative Valgus: negative Other Erythema: absent (blanchable erythema around incision, trace warmth) Scars: present (Well healing, no drainge or signs of infection) Sensation: normal Pulse: present Swelling: mild Effusion: no effusion (consistent with surgery) present Comments: Ambulating well with cane Vitals: There is no height or weight on file to calculate BMI. IMAGING: ASSESSMENT: ICD-10-CM 1. Status post total knee replacement, left Z96.652 2. Chronic pain of left knee M25.562 G89.29 Procedures PLAN: Patient states that he is having pain with heavy activity. I discussed restrictions with patient and recommend that he take a break every hour when doing increased activity. I discussed with the patient the general recommendation for the use of prophylactic antibiotics prior to dental work after joint replacement. I advised the patient that the use of prophylactic antibiotics for dental work is a controversial topic. I currently have recommended that prophylactic antibiotics be used postop and I did advise the patient that the guidelines and recommendations may change on this in the future. Follow up in 4 months for Rck and xray. Questions answered in laymen terms at the bedside. The diagnosis, home exercise plan and any ongoing restrictions/ recommendations reviewed. If unable to be reached in office, I recommend evaluation at nearest Emergency Room if any symptoms worsened or new symptoms develop for requiring urgent evaluation. Sandra Burr JAVA GOLDEN GATE DEVELOPER-TELESCOPE REPAIRER documented in this encounter [facility] 07-06-2024 History of Present illness Narrative Skin Check Location: Patient requests a full body skin examination Dermatologic history: no history of skin cancer, no history of atypical moles, no family history of melanoma Last visit: First skin exam New patient Lesions: Location: right cheek Duration: years Quality: denies pain, denies itch Modifying factors: denies Associated symptoms: brown spots Treatments: none; wants reassurance All pertinent medical history, medications, and allergies were reviewed. General Exam: alert, oriented to person, place, and time, normal affect, well appearing Unaccompanied Scalp, Examined , exam limited by hair Right leg Examined Head, Face Examined , Exam limited by ochoa and mustache Left leg Examined Neck Examined Right foot Examined Chest Examined Left foot Examined Back Examined Buttocks Examined Abdomen Examined Digits,nails: Examined Right arm Examined Left arm Examined Lymphatics: Not examined Hands Examined 1. Seborrheic keratosis (2) Generalized, Right Buccal Cheek Stuck on verrucous, variably pigmented papules and plaques. Patient was counseled regarding these benign growths. Removal is normally not necessary, but they may be removed if they are symptomatic or for cosmetic reasons. Educational literature provided. 2. Melanocytic nevus of trunk (2) Generalized, Right Buttock Scattered benign appearing, regular brown to light brown melanocytic papules and macules with similar morphology Counseled regarding these benign growths. Rarely, a nevus can develop into malignant melanoma, so any changing nevi should be promptly re-evaluated. Next Visit: 1 year documented in this encounter [facility] 05-06-2024 History of Present illness Narrative Images from the original note were not included. Chief Complaint Patient presents with Left Knee - Follow-up HISTORY OF PRESENT ILLNESS: Levon Roach is an 73 y.o. @ male. (EST PT) PO LT TKA W/RT KNEE ЕКАТЕРИНА 11/19/23 (5 MTHS 2 WKS). XRAY TODAY CHANGE 05/06/24 XRAY CHANGE 12/26/23 XRAY CHANGE 11/27/23 PHYSICAL THERAPY @ [facility] FINISHED PT. STATES HIS BALANCE HAS BEEN OFF BUT NO FALLS. STILL SOME KNEE PAIN OCCASIONALLY BUT DOING BETTER SINCE LAST APPOINTMENT. USING ICE AND HEAT PRN. ALLERGIES: No Known Allergies HOME MEDICATIONS: Current Outpatient Medications Medication Instructions aspirin 81 MG EC tablet 1 tablet, Oral, Daily atorvastatin (Lipitor) 40 MG tablet TAKE 1 TABLET BY MOUTH ONCE DAILY FOR 90 DAYS cetirizine (ZYRTEC) 10 mg, Oral, Daily HYDROcodone-acetaminophen ([place]) 5-325 MG tablet 1-2 tablets Orally every 4 hrs prn pain not to exceed 8 in 24 hours methylPREDNISolone (Medrol Dospak) 4 MG tablets Follow schedule on package instructions metoprolol succinate XL (Toprol-XL) 25 MG 24 hr tablet TAKE 1/2 (ONE-HALF) TABLET BY MOUTH ONCE DAILY WITH SUPPER nitroglycerin (Nitrostat) 0.[address] 1 tablet as needed by sublingual route. sildenafil (VIAGRA) 100 mg, Oral, Daily PRN traZODone (Desyrel) 100 MG tablet TAKE 1 & 1 2 (ONE & ONE HALF) TABLETS BY MOUTH AT BEDTIME REVIEW OF SYSTEMS: General: Denies fever, fatigue or weight loss Skin: Denies rash, sores or skin changes Eyes: Denies visual disturbance or pain GI: Denies indigestion or abdominal pain Neuro: Denies numbness or tingling, denies new onset paralysis Musculoskeletal: ( see note) PHYSICAL EXAM: Left Knee Exam Muscle Strength The patient has normal left knee strength. Tenderness Left knee tenderness location: anterior and lateral knee. Range of Motion Extension: -5 Flexion: 100 (96) Tests Varus: negative Valgus: negative Other Erythema: absent (blanchable erythema around incision, trace warmth) Scars: present (Well healing, no drainge or signs of infection) Sensation: normal Pulse: present Swelling: mild Effusion: no effusion (consistent with surgery) present Comments: Ambulating well without assistive devices Vitals: There is no height or weight on file to calculate BMI. IMAGING: XR knee 1 or 2 views left Imaging Result: AP and lateral of left knee showed surgical position and alignment of prosthetic components without evidence of loosening or wear to the femoral, tibial, or patellar components. The alignment appeared to be anatomic. There was no evidence of accelerated or asymmetric wear to the patellar button or tibial tray. There was no evidence of fracture and/or dislocation. Impression: Unremarkable left total knee arthroplasty. ASSESSMENT: ICD-10-CM 1. Status post total knee replacement, left Z96.652 2. Primary osteoarthritis of left knee M17.12 XR knee 1 or 2 views left Procedures PLAN: I reviewed xray with patient which showed stable LT TKA and recommend that he continue working on HEP for ROM of knee. He will call with any worsening symptoms or signs of infection. RCK in 6 months with xray. I discussed with the patient the general recommendation for the use of prophylactic antibiotics prior to dental work after joint replacement. I advised the patient that the use of prophylactic antibiotics for dental work is a controversial topic. I currently have recommended that prophylactic antibiotics be used postop and I did advise the patient that the guidelines and recommendations may change on this in the future. Questions answered in laymen terms at the bedside. The diagnosis, home exercise plan and any ongoing restrictions/ recommendations reviewed. If unable to be reached in office, I recommend evaluation at nearest Emergency Room if any symptoms worsened or new symptoms develop for requiring urgent evaluation. Sandra Burr JAVA GOLDEN GATE DEVELOPER-TELESCOPE REPAIRER documented in this encounter [facility] 11-08-2023 Instructions Nori Gilman RN - 11/08/2023 9:00 AM EST Preoperative Education Checklist- General Surgery date: 11/19/23 Surgery time: 11a Arrival time: 9a 1. Bring a photo ID and your insurance card with you the day of surgery. You will check in at the main lobby of the [facility]- registration desk is straight ahead as soon as you walk in. Tell them you are here for surgery. 2. If you have a Living Will/Durable Power of Transmission Rebuilder for Health Care that is not on [...] after you have bathed. 5. NO nail omani/acrylic on at least one finger. If you are having a hand, wrist or foot surgery then all nail omani and artificial/acrylic nails must be removed from [...] please call the Preadmission Testing office at [phone], Mon.-Fri. 7 a.m.-3 p.m. Leave a voicemail [...] with your doctor. documented in this encounter [facility] 10-23-2023 History of Present illness Narrative Images from the original note were not included. HISTORY OF PRESENT ILLNESS: EST PT Levon Roach is an 73 y.o. @ male. (EST [...] PAST-CX DUE TO CHEST PAIN WHILE IN [place] AND SINUS INFECTION PT SAW DR APPIAH 03/2023 ([employer] [facility] ); CLEARANCE UNDER MEDIA XRAY LT [...] cetirizine (ZYRTEC) 10 mg, Oral, Daily HYDROcodone-acetaminophen ([place]) 5-325 MG tablet 1-2 tablets Orally every [...] requiring urgent evaluation. documented in this encounter [facility] 02-13-2023 Note PROCEDURE: XR ELBOW RT MIN [...] authenticated by: GENNY DAVIS Date: 2023-02-13 14:02 [facility] 11-19-2022 Note PROCEDURE: XR KNEE L T 4V or > COMPARISON: None. HISTORY: Arthritis of left knee FINDINGS: BONES:No acute fracture or dislocation. Moderate tricompartmental osteoarthropathy with marginal osteophyte formation. Narrowing of the medial joint space. SOFT TISSUES:Negative. No visible soft tissue swelling. EFFUSION:Moderate suprapatellar joint effusion OTHER: Negative. IMPRESSION: Moderate osteoarthritis with joint effusion Electronically authenticated by: ANI HARDING Date: 2022-11-19 15:22 [facility] 07-05-2022 Note Orthopedic Surgery Subjective Pain of [...] pain at that time. 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 [employer] on so he feels that he has [...] finger: normal A1 fidencio and AROM Strength: coil strapper 5/5, thumb 5/5, interossei 5/5 Sensation: intact over median, ulnar, and radial nerve distributions Tinel (-) at carpal tunnel Carpal compression test (-) Martha's test (-) Cardiovascular: Well-perfused digits Left Hand: Inspection- no ecchymosis, no edema, no effusion Tender to palpation over SL ligament WF 30, WE 20 Thumb: normal A1 fdiencio and AROM, Index finger: normal A1 fidencio and AROM, Long finger: normal A1 fidencio and AROM, Ring finger: normal A1 fidencio and AROM, and Small finger: normal A1 fidencio and AROM Strength: coil strapper 5/5, thumb 5/5, interossei 5/5 Sensation: intact [...] be an additional personal documentation from me. [facility] Evaluation note Diagnosis Primary osteoarthritis of left knee- Primary Chronic pain of left knee [facility] Diagnosis Coronary artery disease involving [place] coronary artery of [place] heart without angina pectoris- Primary Preop examination Unspecified pre-operative examination Urinary frequency Hypertension, unspecified type Coronary artery disease involving [place] coronary artery of [place] heart without angina pectoris Preop examination Unspecified pre-operative examination Urinary frequency Hypertension, unspecified type [facility] Diagnosis Seborrheic keratosis- Primary Melanocytic nevus of trunk Benign neoplasm of skin of trunk, except scrotum documented [facility]* Diagnosis Status post total knee replacement, left- Primary Chronic pain of left knee [facility] Diagnosis Status post total knee replacement, left Primary osteoarthritis of left knee documented in this encounter [facility] Summary Purpose Family History No Family History Records FoundNo Family History Records FoundNo Family History Records FoundNo Family History Records FoundNo Family History Records FoundNo Family History Records Found Advance Directives Documents on File Type Date Recorded Patient Lead Applications Developer Expl anation ACP-Advance Directive ACP-Power of Transmission Rebuilder Documents on File Type Date Recorded Patient Lead Applications Developer Expl anation ACP-Advance Directive ACP-Power of Transmission Rebuilder Latest Code Status on File Code Status [...] SNF and will dishcharge to home with [facility]. , Hai. Notified. * Carolina Ervin PT - 09/22/2020 9:48 AM EST Physical Therapy Facility/Department: [facility] Daily Treatment Note NAME: Levon Roach : 1950 Date of Service: 09/22/2020 Discharge Recommendations: Subacute/Fpc Facility(if declining, recommend PT) RN reports patient [...] fatigue Activity Tolerance: Attempted to see pt elleniler in morning and refused, but after education with RN, pt agreeable to PT. Very painful when starting session and then pain decreased per pt. Patient Diagnosis(es): The primary encounter diagnosis was Acute postoperative pain. A diagnosis ofLocalized osteoarthritis of right knee was also pertinent to this visit. has a past medical history of Anginal pain (HCC), Arthritis, Fibromyalgia, Hyperlipidemia, MA (myocardial infarction) (HCC), Mood swings, Prolonged emergence [...] to only perform slight LAQ. OutComes Score AM-[facility] Score -[facility] Inpatient Mobility Raw Score : 17 (09/22/20946) -[facility] Inpatient T-Scale Score : 42.13 (09/22/20946) Mobility Inpatient CMS 0-100% Score: 50.57 (09/22/20946) Mobility Inpatient [facility] G-Code Modifier : CK (09/22/20946) Goals Short term goals Time Frame for Short term goals: 5 visits: Short term goal 1: Pt. to be indep with bed mob. 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 Short term [...] discharge plan is Home. Agency/Facility chosen: [facility] Awaiting pre-certification no Anticipated discharge date: [...] MD - 09/22/2020 8:09 AM EST [facility] Office: [phone] Dwayne Orourke DO, Sabino Archibald DO, Lam Mayo DO, Momo Aguilera DO, Tyson Warner MD, Amie Haque MD, Fernando Vera MD, Deanne Clay MD, Twin Be MD, Nadeen Amezcua MD, MD Ashia, Haris Pacheco MD, Shanae Ramirez MD, Sandoval Whitaker DO, Liane Carvajal MD, Beth Gordillo MD, Homar Dennis DO, Sofiya Guzmán MD, Nat Amezcua DO, Spencer Castellano MD, MD Juan, Donya Monsalve, TELESCOPE REPAIRER, Adali Murillo CNP, Bambi Muhammad, TELESCOPE REPAIRER, Jennifer Keller, BUFFING LINE SET UP WORKER,Devyn Trejo, TELESCOPE REPAIRER, Ladi Pedersen, TELESCOPE REPAIRER, Deyanira Leo, TELESCOPE REPAIRER, Mary Jane Bauman, TELESCOPE REPAIRER, Kuldip Knight TELESCOPE REPAIRER, Charli Cueva PA-C, Heidi Foote DNP, Charline Swanson, SAADIA, Adelina Adamson, TELESCOPE REPAIRER, Madison Maya, TELESCOPE REPAIRER, Gemma Lopez, TELESCOPE REPAIRER, Lory Schrader, TELESCOPE REPAIRER [facility] IN-PATIENT SERVICE [facility] Progress Note 09/22/2020 8:09 AM Name: Levon Roach Acct: [id number] Room: IP Day: 2 Admit Date: 09/20/2020 5:39 AM PCP: Ruddy Yin MD Code Status: Full Code Reason [...] Infusions: sodium chloride 125 mL/hr at 09/20/20 6159 PRN Meds: calcium carbonate, nitroGLYCERIN, sodium chloride flush, promethazine OR ondansetron,magnesium hydroxide, oxyCODONE OR oxyCODONE, HYDROmorphone OR HYDROmorphone, chlordiazePOXIDE Data: Past Medical History: has a past medical history of Anginal pain (HCC), Arthritis, Fibromyalgia, Hyperlipidemia, MA (myocardial infarction) (HCC), Mood swings, Prolonged emergence [...] No results for input(s): PROT, LABALBU, LABA1C, V9TPBTV, V2THDYE, FT4, TSH, AST, ALT, LDH, GGT, ALKPHOS, LABGGT, BILITOT, BILIDIR, AMMONIA, AMYLASE, LIPASE, LACTATE, CHOL, HDL, LDLCHOLESTEROL, CHOLHDLRATIO, TRIG, VLDL, WXU32ZH, PHENYTOIN, PHENYF, URICACID, POCGLU in the last 72 hours. ABG:No results found for: POCPH, PHART, PH, POCPCO2, OUB2TYC, PCO2, POCPO2, PO2ART, PO2, POCHCO3, ZGA4FHN, HCO3, NBEA, PBEA, BEART, BE, THGBART, THB, PLC4GEF, KILF4ING, P1KQFSWF, O2SAT, FIO2 No results found for: SPECIAL [...] Hardin RN - 09/22/2020 3:51 AM EST Assignment Officer noticed more redness on the outer part [...] Discharge Recommendations: Home with Home health PT, Subacute/Fpc Facility, Continue to assess pending progress PT [...] of Anginal pain (HCC), Arthritis, Fibromyalgia, Hyperlipidemia, MA (myocardial infarction) (HCC), Mood swings, Prolonged emergence [...] to getting out of bed. OutComes Score [facility] Score [facility] Inpatient Mobility Raw Score : 17 (09/21/201510) -[facility] Inpatient T-Scale Score : 42.13 (09/21/201510) Mobility Inpatient CMS 0-100% Score: 50.57 (09/21/201510) Mobility Inpatient CMS G-Code Modifier : CK (09/21/201510) Goals Short term goals Time Frame for Short term goals: 5 visits: Short term goal 1: Pt. to be indep with bed mob. 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 MED SURG Daily Treatment Note NAME: [...] of Anginal pain (HCC), Arthritis, Fibromyalgia, Hyperlipidemia, MA (myocardial infarction) (HCC), Mood swings, Prolonged emergence [...] Mobility Inpatient CMS G-Code Modifier : CK (01/06/21 1034) Goals Short term goals Time Frame for Short term goals: 5 visits: Short term goal 1: Pt. to be indep with bed mob. 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 Short term [...] MD - 09/21/2020 9:10 AM EST [facility] Office: [phone] Dwayne Orourke DO, Sabino Archibald DO, Lam [...] MD, MD Juan, Donya Monsalve, SAADIA, Adali Murillo CNP, Bambi Muhammad, TELESCOPE REPAIRER, Jennifer Keller, BUFFING LINE SET UP WORKER,Devyn Trejo, TELESCOPE REPAIRER, Ladi Pedersen, TELESCOPE REPAIRER, Deyanira Leo, TELESCOPE REPAIRER, Mary Jane Bauman, TELESCOPE REPAIRER, Kuldip Knight, TELESCOPE REPAIRER, Charli Cueva PA-C, Heidi Foote, ZACH, Charline Swanson, TELESCOPE REPAIRER, Adelina Adamson, TELESCOPE REPAIRER, Madison Maya, TELESCOPE REPAIRER, Gemma Lopez, TELESCOPE REPAIRER, Lory Schrader, TELESCOPE REPAIRER [facility] IN-PATIENT SERVICE [facility] Progress Note 09/21/2020 9:10 AM Name: Levon Roach Acct: [id number] Room: IP Day: 1 Admit Date: 09/20/2020 5:39 AM PCP: Ruddy Yin MD Code Status: Full Code Reason [...] of Anginal pain (HCC), Arthritis, Fibromyalgia, Hyperlipidemia, MA (myocardial infarction) (HCC), Mood swings, Prolonged emergence [...] RDW, PLT, MPV, SEDRATE, CRP, INR, DDIMER, BB5PDHLK, LABABSO in the last 72 hours. Invalid input(s): PT Chemistry:No results for input(s): NA, K, CL, CO2, GLUCOSE, BUN, CREATININE, MG, ANIONGAP, LABGLOM,GFRAA, CALCIUM, CAION, PHOS, PSA, PROBNP, TROPHS, CKTOTAL, CKMB, CKMBINDEX, MYOGLOBIN, DIGOXIN, LACTACIDWB in the last 72 hours.No results for input(s): PROT, LABALBU, LABA1C, Y8UGUJV, X4DXMCO, FT4, TSH, AST, ALT, LDH, GGT, ALKPHOS, LABGGT, BILITOT, BILIDIR, AMMONIA, AMYLASE, LIPASE, LACTATE, CHOL, HDL, LDLCHOLESTEROL, CHOLHDLRATIO, TRIG, VLDL, SLI16DP, PHENYTOIN, PHENYF, URICACID, POCGLU in the last 72 hours. ABG:No results found for: POCPH, PHART, PH, POCPCO2, QCV8BHF, PCO2, POCPO2, PO2ART, PO2, POCHCO3, JAK2QIY, HCO3, NBEA, PBEA, BEART, BE, THGBART, THB, ZDN4CPX, IIYP3VWD, C2CYZFBF, O2SAT, FIO2 No results found for: SPECIAL [...] MD - 09/21/2020 7:50 AM EST Ortho Hopr-do-Szhj Discussion of Medical Necessity for Use of [...] TROPONINI Urine Culture: No components found for: BERRY Current Inpatient Medications Current Facility-Administered Medications: atorvastatin [...] of Anginal pain (HCC), Arthritis, Fibromyalgia, Hyperlipidemia, MA (myocardial infarction) (HCC), Mood swings, Prolonged emergence [...] Ambulation Assistance: Independent Transfer Assistance: Independent Active Derrick Operator: Yes Mode of Transportation: Car Occupation: Retired Type of occupation: retired from [employer]. 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 [...] with bed mob. 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 [...] pt will Short term goal 1: demo S/MA with ADL transfers and functional mob with good safety/pacing and approp AD/DME Short term goal 2: demo S/MA with toileting routine Short term goal 3: [...] address individual discipline's goals. Chanel Saini OT Raj Alcala RN - 09/20/2020 12:43 PM EST Ortho [...] plan is Home. Agency/Facility chosen: [facility] Awaiting pre-certification no Anticipated discharge date: [...] Coronary atherosclerosis of unspecified type of vessel, [place] or graft Reason for Referral Status Reason Specialty Diagnoses / Procedures Referred By Contact Referred To Contact Open Patient Preference Physical Therapy Diagnoses Acute postoperative pain Localized osteoarthritis of right knee Kareem Diaz MD [address] [place] [address] Specialty Diagnoses / Procedures Referred By Contac t Referred To Contact Diagnoses Coronary artery disease involving [place] coronary artery of [place] heart without angina pectoris Preop examination Urinary frequency Hypertension, unspecified type Procedures ECG 12 lead Juna Carlos Alas Jr., DO [address] [place] [address] Referral ID Status Reason Start Date Expiration Date V isits Requested Visits Authorized [id number] Pending Review 11/05/2023 11/04/2024 1 1 Hospital Course * Kareem Diaz MD - 09/21/2020 7:53 AM EST Physician Discharge Summary Patient ID: Levon Roach [id number] 70 y.o. 1950 Admit date: 09/20/2020 Discharge [...] Patient Instructions: Levon Roach Home Medication Instructions JE:[id number] Printed on:09/21/20 9984 Medication Information aspirin 325 MG EC tablet [...] -- Admitting Physician: Kareem Diaz MD PCP: Ruddy Yin MD Discharging Nurse: Abigail CARTER Discharging Hospital Unit/Room#: Discharging Unit Emergency Contact: Extended Emergency Contact Information Primary Emergency Contact: Hai Roach [facility] [facility] Relation: Spouse Past Surgical History: Past Surgical History: Procedure Laterality Date ANKLE SURGERY CARDIAC CATHETERIZATION 12/19/2015 double bypass CARPAL TUNNEL RELEASE Bilateral CERVICAL FUSION COLONOSCOPY CORONARY ARTERY BYPASS GRAFT 2016 Double bypass LEG SURGERY due to accident NV SHLDR ARTHROSCOP,SURG,W/ROTAT CUFF REPR Left 04/01/2018 SHOULDER ARTHROSCOPY LEFT WITH ROTATOR CUFF REPAIR - KAMARA & NEPHEW performed by Kareem Diaz MD at [facility] OR ROTATOR CUFF REPAIR Left 04/01/2018 with arthroscopy TOTAL KNEE ARTHROPLASTY Right 09/20/2020 RIGHT KNEE TOTAL ARTHROPLASTY performed by Kareem Diaz MD at [facility] OR TRANSESOPHAGEAL ECHOCARDIOGRAM 12/19/2015 Immunization [...] Independent Dressing Assisted Toileting Independent Feeding Independent Tail Ripper Independent Med Delivery whole Wound Care Documentation [...] Readmission: 6 Discharging to Facility/ Agency Name: [facility] [place] [address] Dialysis Facility (if applicable) Name: Address: Dialysis Schedule: Phone: Fax: Advertising Director/Station Baggage Agent signature: PHYSICIAN SECTION Prognosis: Good Condition at [...] THE ORTHOPEDIC COORDINATOR: RAJ FINCH RN, BSN [phone] [email or web address] YOU MAY ALSO MESSAGE ME ON GET [...] orthopedic appointment with surgeon Discharge instructions video: [email or web address] Keep it Clean Post-Operative Home instructions These instructions are to help you have the best possible recovery after your surgical procedure. [facility] is here to support you. If you have questions, call [phone] Saturday through Saturday from 7:30AM to 8:30PM to speak to a nurse. If you need to speak to someone outside of these hours, call your physician. Incision Do s and Don ts Do wash hands before and after dressing changes or when you have had any contact with your incision. Use hand housing property manager or antibacterial soap. Do keep your [...] to your discharge paperwork for further instructions [facility]: A waterproof barrier to [...] Everywhere. * TKR (Total Knee Replacement): Post-op (Azerbaijani) * TKR (Total Knee Replacement): Rehabilitation (Azerbaijani) * Constipation (Azerbaijani) * DVT (Deep Vein Thrombosis): General Info (Azerbaijani) * acetaminophen and oxycodone (Azerbaijani) * aspirin (oral) (Azerbaijani) * docusate and senna (Azerbaijani) documented in this encounter Additional Source Comments (unrecognized sect ion and content) No Status Records FoundNo Status Records FoundNo Status Records FoundNo Status Records FoundNo Status Records FoundNo Status Records Found INFORMATION SOURCE (unrecogn ized section and content) DATE CREATED AUTHOR 03/12/2018 [facility] DATE CREATED AUTHOR AUTHOR'S ORGANIZ ATION 09/23/2020 [facility] DATE CREATED AUTHOR AUTHOR'S ORGANIZ ATION 07/09/2022 [facility] DATE CREATED AUTHOR AUTHOR'S ORGANIZ ATION 02/22/2023 [facility] DATE CREATED AUTHOR AUTHOR'S ORGANIZ ATION 11/23/2023 [facility] DATE CREATED AUTHOR AUTHOR'S ORGANIZ ATION 07/25/2024 [facility] EPIC Reason for Visit (unrecogniz ed section and content) Status Reason Specialty Diagnoses / Procedures Referre d By Contact Referred To Contact Diagnoses Osteoarthritis of right knee DX OA RIGHT KNEE Procedures NV TOTAL KNEE ARTHROPLASTY RIGHT KNEE TOTAL ARTHROPLASTY- BIOMET Kareem Diaz MD [address] [place] [address] [facility] Reason Comments Pain Reason Comments Skin Check Reason Comments Follow-up Ordered Prescriptions (unrec ognized section and content) [...] Care Teams (unrecognized sec tion and content) Director Of Land Acquisition Relationship Specialty Start Date End Date Ruddy Yin MD [address] [facility] [address] PCP - General Family Medicine 01/30/23 Director Of Land Acquisition Relationship Specialty Start Date End Date Ruddy Yin MD [address] [place] [facility] [address] PCP - General 05/12/18 Director Of Land Acquisition Relationship Specialty Start Date End Date Ruddy Yin MD [address] [facility] [place] [address] PCP - General Family Medicine 01/30/23 Director Of Land Acquisition Relationship Specialty Start Date End Date Ruddy Yin MD [address] [facility] [place] [address] PCP - General Family Medicine 01/30/23 Director Of Land Acquisition Relationship Specialty Start Date End Date Ruddy Yin MD [address] [facility] [place] [address] PCP - General Family Medicine 01/30/23 Director Of Land Acquisition Relationship Specialty Start Date End Date Ruddy Yin MD [address] [facility] [place] [address] PCP - General Family Medicine 01/30/23 FOR RECORDS PERTAINING TO PATIENTS WHO ARE [...] BE BASED ON THE PRIMARY CLINICAL RECORDS. [facility]. provides no warranty or guarantee of the accuracy or completeness of information in this document.
[2024-09-04 07:15] LABS: Basophils Percent Auto 0.4 % (0.2-2.0); Eosinophils Absolute Auto 0.2 10^3/uL (0.0-0.7); Eosinophils Percent Auto 3.2 % (0.9-7.0); Hematocrit 46.3 % (42.0-54.0); Hemoglobin 15.4 g/dL (14.0-18.0); Immature Granulocytes Abs Auto 0.01 10^3/uL (0.00-0.03); Immature Granulocytes Pct Auto 0.2 % (0.0-0.5); Lymphocytes Absolute Auto 1.4 10^3/uL (1.2-3.8); Lymphocytes Percent Auto 26.7 % (20.5-60.0); Mean Corpuscular HGB Conc 33.3 g/dL (29.9-35.2); Mean Corpuscular Hemoglobin 32.6 pg (25.9-34.0); Mean Corpuscular Volume 98.1 fL (80.0-94.0); Mean Platelet Volume 9.5 fL (9.5-13.5); Monocytes Absolute Auto 0.5 10^3/uL (0.3-0.8); Monocytes Percent Auto 9.5 % (1.7-12.0); Neutrophils Absolute Auto 3.2 10^3/uL (1.4-6.5); Platelet Count 214 10^3/uL (150-450); Red Blood Count 4.72 10^6/uL (4.70-6.10); Red Cell Distribution Width 11.9 % (11.0-15.0); White Blood Count 5.3 10^3/uL (4.0-11.0)
[2024-09-04 07:25] LABS: Estimated Average Glucose 111 mg/dL; Glycohemoglobin A1C 5.5 % (4.5-6.2)
[2024-09-04 08:13] LABS: Prostate Specific Antigen Scrn 1.76 ng/mL (<=4.00)
[2024-09-04 09:43] LABS: Alanine Aminotransferase 26 U/L (16-63); Albumin Globulin Ratio 1.1; Albumin Level 3.7 g/dL (3.4-5.0); Alkaline Phosphatase 58 U/L (46-116); Anion Gap 10.3; Aspartate Amino Transferase 23 U/L (15-37); BUN Creatinine Ratio 18.3; Bilirubin Total 0.5 mg/dL (0.2-1.0); Calcium 9.4 mg/dL (8.5-10.1); Carbon Dioxide 32.1 mmol/L (21.0-32.0); Chloride 104 mmol/L (98-107); Chol HDL Ratio 2.8; Cholesterol 152 mg/dL (<=200); Estimated GFR (African America >60 (>=60 mL/min/1.73m^2); Estimated GFR (Non-African Ame >60 (>=60 mL/min/1.73m^2); Free T3 2.78 pg/mL (2.18-3.98); Globulin 3.4 g/dL; Glucose 94 mg/dL (74-106); HDL Cholesterol 55 mg/dL (40-60); LDL Cholesterol Calculated 80.8 mg/dL; Potassium 4.4 mmol/L (3.5-5.1); Sodium 142 mmol/L (136-145); Thyroid Stimulating Hormone 4.197 uIU/mL (0.358-3.740); Total Protein 7.1 g/dL (6.4-8.2); Triglycerides 81 mg/dL (<=150); Uric Acid 4.7 mg/dL (3.5-7.2); VLDL CHOLESTEROL 16.2 mg/dL
[2024-09-07 14:07] LABS: Insulin 12.8 uIU/mL (2.6-24.9)
== END 2024-09-04 06:47 | disposition home or self-care (01) ==
LOC: LAB 06:48
PROVIDERS: PCP Family Medicine; Visit Provider Family Medicine
DX: L72.9 Follicular cyst of the skin and subcutaneous tissue, unspecified (principal); R41.3 Other amnesia; E78.5 Hyperlipidemia, unspecified; R53.83 Other fatigue; R73.09 Other abnormal glucose; I10 Essential (primary) hypertension; M10.9 Gout, unspecified; Z12.12 Encounter for screening for malignant neoplasm of rectum; E03.9 Hypothyroidism, unspecified; Z12.5 Encounter for screening for malignant neoplasm of prostate
CPT/HCPCS: 36415; 80053; 80061; 83036; 83525; 84436; 84443; 84481; 84550; 85025; G0103

== ENCOUNTER 2025-05-06 06:21 | Outpatient (OUT) | payer MEDICARE, OTHER, SELFPAY ==
--- OUTSIDE RECORDS SUMMARY | 2025-03-18 03:41 | XMS_ITS | Continuity of Care Document ---
Author Name [facility] Organization [facility] Care Team Providers Care Electronic Communications Technician Name Role Phone [facility] Unavailable Unavailable Problems Combined list of problems from [facility] and [facility] facilities. It does not include entries that were removed or entered in error. Problem Status Onset Date Problem Type Date of Resolution Comments Source Astigmatism (SNOMED CT 74076182) Active Condition [facility] Bilateral age-related nuclear cataracts (SNOMED CT 330998718958901) Active Condition [facility] Chronic osteoarthritis (SNOMED CT 59349305) Active Condition [facility] colonoscopy 04-10-13 [facility] Active Condition [facility] Coronary artery bypass graft occlusion Active Condition [facility] Fibromyalgia * (ICD-9-CM 729.1) Active Condition [facility] Hypermetropia * Active Condition January 26, 2014 Entered By: Martha AKINS OD Comment: OD [facility] Hypertension (SNOMED CT 65774714) Active Condition [facility] Mixed hyperlipidemia (SNOMED CT 163934850) Active Condition [facility] Presbyopia (SNOMED CT 17573102) Active Condition [facility] Diagnosis: ICD-10-CM Z46.1 Encounter for fitting and adjustment of hearing aid Active Diagnosis [facility] Diagnosis: ICD-10-CM H25.13 Age-related nuclear cataract, bilateral Active Diagnosis [facility] Diagnosis: ICD-10-CM H90.3 Sensorineural hearing loss, bilateral Active Diagnosis [facility] Allergies, Adverse Reactions, Alerts Combined list of allergies from [facility] and [facility] facilities. It does not include entries that were removed or entered in error. Substance Category Reaction Severity Reaction type Status Date Reported Comments Source LIPITOR Propensity to adverse reactions to drug (finding) Hiccoughs active 3 [facility] SIMVASTATIN Propensity to adverse reactions to drug (finding) Muscle pain active 4 [facility] Immunizations Combined list of available immunizations from the Department of Defense and Veterans Affairs facilities. Immunization Series Date Given Administered By Site Reaction Lot Number CVX Code Drug Hammer Adjuster Status Comments Source TDAP 2019 115 complet ed HISTORICA L INFORMATI ON - FROM PATIENT'S WRITTEN RECORD, [facility] [employer] SYSTEM Encounters Combined list of: 1) Encounters from Department of Veterans Affairs facilities going backup to the last 18 months, not all VA inpatient encounters are included; 2) Encounters from the Department of [facility] facilities going backup to 280 months. Location Location Details Encounter Type Encounter Number Reason For Visit Attending Provider ADM Date DC Date Status Disposition Source [facility] Outpatient Encounter [id number] 11/20 [facility] HEARING AID EXAM BOTH EARS [id number] Diagnos is: ICD-10- CM H90.3 Sensori neural hearing loss, jaya anthony [place] VANDA 02/02 [facility] COMPRE OPH EXAM EST [place] 1/> [id number] Diagnos is: ICD-10- CM H25.13 Age-rel ated nuclear catarac t, DENA Mcdermott OD 02/02 [facility] HEARING AID FITTING/CH ECKING [id number] Diagnos is: ICD-10- CM Z46.1 Encount er for fitting and adjustm ent of hearing aid [place] ,VANDA 02/24 [facility] Social History Combined list of available smoking, tobacco, and other social history from Department of [facility] and Veterans Affairs facilities. Social History Type Response Date Comment Sourc e Tobacco smoking status NHIS QUIT TOBACCO >12 MO 01/25/2016 [facility] History of tobacco use QUIT TOBACCO >12 MO 04/14/2015 [facility] History of tobacco use QUIT TOBACCO >12 MO 09/13/2014 [facility] History of tobacco use QUIT TOBACCO >12 MO 04/09/2014 [facility] History of tobacco use QUIT TOBACCO >12 MO 04/08/2013 [facility] History of tobacco use QUIT TOBACCO >12 MO 12/05/2012 [facility] History of tobacco use QUIT TOBACCO >12 MO 09/24/2011 [facility] History of tobacco use QUIT TOBACCO >12 MO 01/15/2011 [facility] History of tobacco use QUIT TOBACCO >12 MO 08/07/2010 [facility]
--- OUTSIDE RECORDS SUMMARY | 2025-04-06 04:44 | XMS_ITS ---
Author Organization The [facility] in [place] Address [address] [place] [address] Care Team Providers Care Middleware Consultant Name Role Phone Fco Salas Primary Care Provider Reason For Referral Diagnosis 1 H/O two vessel coron [place] artery bypass graft (Z95.1) Diagnosis 2 Coronary artery dise ase involving [place] coronary artery of [place] heart without angina pectoris (I25.10) Diagnosis 3 Hyperlipidemia, unsp ecified hyperlipidemia type (E78.5) Diagnosis 4 LVH (left ventricula r hypertrophy) (I51.7) Diagnosis 5 Sinus bradycardia (R 00.1) Diagnosis 6 Right ventricular dy sfunction (I51.9) Referral Organization [facility] Referring Provider First Name Fco Referring Provider Last Name Josue Referring Provider [facility] icine Referred Provider [facility] Special[facility]iology Referral Priority Routine REASON FOR VISIT cardio referral Encounters Encounter Location Date Provider Diagnosis [facility] [address] [place] [address] 04/06/2025 Fco Salas H/O two vessel coron [place] artery bypass graft Z95.1 ; Hyperlipidemia, unspecified hyperlipidemia type E78.5 and Coronary artery disease involving [place] coronary artery of [place] heart without angina pectoris I25.10 Assessments Encounter Date Diagnosis (ICD Code) Assessment Notes Treatment Notes Treatment Clinical Notes Section Notes 04/06/2025 H/O two vessel coronary artery bypass graft (ICD-10 - Z95.1) 04/06/2025 Hyperlipidemia, unspecified hyperlipidemia type (ICD-10 - E78.5) 04/06/2025 Coronary artery disease involving [place] coronary artery of [place] heart without angina pectoris (ICD-10 - I25.10) Plan Of Treatment Referrals Referral Date Details 04/06/2025 04/06/2025, [facility] Cardiology Progress Notes * Levon ROACH CDOB:12/1949 (74 yo M)Acc No.[id number]:04/06/2025 Patient: Levon CHRISTENSEN :1950 A ge:74 Y S ex:Male Address:[address] [place] [phone] Subjective: * Chief Complaints: * C ardio referral * Medical History: * Surgical History: * Hospitalization/Major Diagno stic Procedure: * Medications: Objective: * Vitals: * Physical Examination: Assessment: * Assessment: 1. H /O two vessel coronary artery bypass graft - Z95.1 (Primary) 2 . H yperlipidemia, unspecified hyperlipidemia type - E78.5 3 . C oronary artery disease involving [place] coronary artery of [place] heart without angina pectoris - I25.10 Plan: * Treatment: 2. H yperlipidemia, unspecified hyperlipidemia type Referral To:Specialty Clinic [facility] Cardiology Cardiology Reason: 3. C oronary artery disease involving [place] coronary artery of [place] heart without angina pectoris Referral To:[facility] Clinic [facility] Cardiology Cardiology Reason: 4. O thers Referral To:Specialty Clinic [facility] Cardiology Cardiology Reason: * Procedure Codes: * true * Date: Generated for Gretel la/Ben/eTransmitting on: 0 05/06/2025 06:24 AM EDT Consultation Request Notes Referral Date Referring Provider Referred Provider Not es 04/06/2025 Fco Salas [facility] Cardiology, Specialty C brian
--- OUTSIDE RECORDS SUMMARY | 2025-04-06 05:00 | XMS_ITS ---
Author Organization [facility] in [place] Address [address] [place] [address] Care Team Providers Care Police Surgeon Name Role Phone Josue Fco Primary Care Provider REASON FOR VISIT TOR 30mg- arthritis- body aches Encounters Encounter Location Date Provider Diagnosis [facility] [address] [place] [address] 04/06/2025 Fco Josue Lumbar radiculopathy M54.16 Assessments Encounter Date Diagnosis (ICD Code) Assessment Notes Treatment Notes Treatment Clinical Notes Section Notes 04/06/2025 Lumbar radiculopathy (ICD-10 - M54.16) Plan Of Treatment No Information Medications Administered Medication Instructions Date of Administration Dosage Notes Ketorolac Tromethamine 04/06/2025 30 mg Progress Notes * Levon ROACH CDOB:12/1949 (74 yo M)Acc No.[id number]:04/06/2025 Progress Note Patient: Deep JOELMARIANNELevon BRIAN Provider: [facility] Rom[facility] :1950 A ge:74 Y S ex:Male Date:04/06/2025 Address:[address] [place], [place] [id number] Check In:08:38 AM ESTCheck O ut:08:48 AM EST Subjective: * Chief Complaints: * T OR 30mg- arthritis- body aches * Active Problem List M67.48 Ganglion, other site Modified On:02/13/2023 Status:confirmed R35.1 Nocturia Modified On:02/13/2023 Status:confirmed R41.82 Altered mental statu s, unspecified Modified On:06/12/2023 Status:confirmed J01.11 Acute recurrent fron donny sinusitis Modified On:02/13/2023 Status:confirmed L72.3 Sebaceous cyst Modified On:02/13/2023 Status:confirmed F41.9 Anxiety Modified On:02/13/2023 Status:confirmed M25.579 Ankle pain Modified On:02/13/2023 Status:confirmed M06.9 RA (rheumatoid arthr itis) Modified On:02/13/2023 Status:confirmed J01.90 Acute sinusitis Modified On:02/13/2023 Status:confirmed K58.9 Irritable bowel synd johnathan Modified On:02/13/2023 Status:confirmed M79.7 Fibromyalgia Modified On:02/13/2023 Status:confirmed M67.40 Ganglion cyst Modified On:02/13/2023 Status:confirmed D22.9 Nevus Modified On:02/13/2023 Status:confirmed I73.9 Claudication, interm ittent Modified On:02/13/2023 Status:confirmed N48.6 Peyronie's disease Modified On:02/13/2023 Status:confirmed N45.1 Epididymitis, right Modified On:02/13/2023 Status:confirmed M53.80 Other symptoms refer able to back Modified On:02/13/2023 Status:confirmed N40.0 Benign hypertrophy o f prostate Modified On:02/13/2023 Status:confirmed H81.399 Vertigo, peripheral Modified On:02/13/2023 Status:confirmed Z00.00 Encounter for routin e adult medical examination Modified On:02/13/2023 Status:confirmed M54.50 Low back pain, unspe cified Modified On:06/12/2023 Status:confirmed I10 Essential (primary) hypertension Modified On:04/03/2023 Status:confirmed E78.5 Hyperlipidemia, unsp ecified hyperlipidemia type Modified On:11/12/2023 Status:confirmed R00.1 Sinus bradycardia Modified On:11/12/2023 Status:confirmed Z82.49 Family history of ea rly CAD Modified On:04/15/2023 Status:confirmed Z87.891 Former smoker Modified On:04/15/2023 Status:confirmed I51.7 LVH (left ventricula r hypertrophy) Modified On:11/12/2023 Status:confirmed I25.10 Coronary artery dise ase involving [place] coronary artery of [place] heart without angina pectoris Modified On:05/12/2024 Status:confirmed Z95.1 H/O two vessel coron josé luis artery bypass graft Modified On:11/12/2023 Status:confirmed G47.00 Insomnia Modified On:04/15/2023 Status:confirmed R07.89 Atypical chest pain Modified On:11/12/2023 Status:confirmed I45.4 IVCD (intraventricul ar conduction defect) Modified On:11/12/2023 Status:confirmed I51.9 Right ventricular dy sfunction Modified On:11/12/2023 Status:confirmed M75.122 Complete tear of lef t rotator cuff Modified On:10/06/2018 Status:confirmed M19.012 Arthritis of left ac romioclavicular joint Modified On:10/06/2018 Status:confirmed Z86.79 H/O: hypertension Modified On:11/12/2023 Status:confirmed M17.0 Primary osteoarthrit is of both knees Modified On:04/03/2023 Status:confirmed M17.11 Primary osteoarthrit is of right knee Modified On:12/26/2020 Status:confirmed Z96.651 Status post right kn ee replacement Modified On:01/02/2023 Status:confirmed 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 Modified On:06/12/2021 Status:confirmed M19.132 Scapholunate advance d collapse of left wrist Modified On:06/12/2021U Status:confirmed M13.862 Other specified arth ritis, left knee Modified On:10/01/2023U Status:confirmed Z96.651 Presence of right ar tificial knee joint Modified On:11/23/2022U Status:confirmed M25.529 Elbow pain Modified On:02/13/2023U Status:confirmed Z79.52 terminal gauger (current) use of systemic steroids Modified On:03/22/2023U Status:confirmed Z01.810 Encounter for prepro cedural cardiovascular examination Modified On:11/12/2023U Status:confirmed Z86.79 History of coronary artery disease Modified On:04/17/2023 Status:confirmed 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 Modified On:04/17/2023U Status:confirmed Z95.1 S/P CABG x 2 Modified On:04/17/2023 Status:confirmed M54.16 Lumbar radiculopathy Modified On:07/17/2023U Status:confirmed R05.3 Chronic cough Modified On:09/27/2023U Status:confirmed K59.00 Constipation Modified On:12/31/2023 Status:confirmed R53.83 Fatigue Modified On:01/27/2024 Status:confirmed L72.9 Skin cyst Modified On:09/02/2024 Status:confirmed R41.3 Memory loss Modified On:09/02/2024 Status:confirmed * Medical History: * Surgical History: * Hospitalization/Major Diagno stic Procedure: * Medications: Objective: * Vitals: Assessment: * Assessment: 1. L umbar radiculopathy - M54.16 (Primary) Plan: * Treatment: * Therapeutic Injections: Ketorolac Tromethamine : 30 mg (Route: Intramuscular) given by More Tejada SA on left deltoid (Lumbar radiculopathy) * Procedure Codes: 9 [id number] THERAP.INJ. OF MED. INTRAMUSCULAR OR [id number] TORADOL, PER 15 MG, Units: 2.00 * * Sign off status: Completed Visit Status: C HK (Check Out) true * Provider: Yadira Salas ([place])MD Date: 0 04/06/2025 Generated for Gretel la/Ben/Ta on: 0 05/06/2025 06:24 AM EDT
--- OUTSIDE RECORDS SUMMARY | 2025-04-09 07:55 | XMS_ITS ---
Author Organization [facility] in [place] Address [address] [place] [address] Care Team Providers Care Protective Services Officer Name Role Phone Julio CesarFco hawley Primary Care Provider REASON FOR VISIT refill Medications Medication SIG (Take, Route, Frequency, Duration) Notes Start Date End Date Status Sildenafil Citrate 100 MG TAKE 1 TABLET BY MOUTH ONCE A DAY NEEDED 30 MINUTES BEFORE INTERCOURSE NOT MORE THAN EVERY 3 DAYS for 23 days Active Encounters Encounter Location Date Provider Diagnosis [id number] [place] [address] 04/09/2025 Fco Salas Plan Of Treatment Medication Medication Name Sig Start Date Stop Date Notes Sildenafil Citrate 100 MG TAKE 1 TABLET BY MOUTH ONCE A DAY NEEDED 30 MINUTES BEFORE INTERCOURSE NOT MORE THAN EVERY 3 DAYS for 23 days Progress Notes * Levon ROACH CDOB:12/1949 (74 yo M)Acc No.[id number]:04/09/2025 Patient: Deep Levon HUTCHINS :1950 A ge:74 Y S ex:Male Address:[address] [place] [address], [place], [address] * Refills Refill Sildenafil Citrate Tablet, 100 MG, 6 Tablet, TAKE 1 TABLET BY MOUTH ONCE A DAY NEEDED 30 MINUTES BEFORE INTERCOURSE NOT MORE THAN EVERY 3 DAYS, 23 days, Refills=3 * true * Date: Generated for Shellii ng/Fachanteg/eTransmitting on: 0 05/06/2025 06:24 AM EDT
--- OUTSIDE RECORDS SUMMARY | 2025-04-26 14:15 | XMS_ITS | Encounter Summary ---
Author Organization [facility] Address [address] [place] [address] Care Team Providers Care Hospice Clinical Manager Name Role Phone Ruddy Salas MD Primary Care Provider [phone] Reason for Referral * Imaging (Routine) - Pending Review Specialty Diagnoses / Procedures Referred By Madeleine t Referred To Contact Cardiology Diagnoses Coronary artery disease involving [place] coronary artery of [place] heart with other form of angina pectoris Primary hypertension LVH (left ventricular hypertrophy) Procedures Transthoracic echo (TTE) complete Keith Tapia MD [address] [facility] [place] [address] Phone: tel: fax: Referral ID Status Reason Start Date Expiration Date Visits Requested Visits Authorized [id number] Pending Review Perform Procedure 04/26/2025 04/26/2026 1 1 * (Routine) - Pending Review Specialty Diagnoses / Procedures Referred By Madeleine verdin Referred To Contact Diagnoses LVH (left ventricular hypertrophy) Procedures ECG 12 lead unit performed Keith Tapia MD [address] [place] [address] Phone: tel: fax: Referral ID Status Reason Start Date Expiration Date V isits Requested Visits Authorized [id number] Pending Review 04/26/2025 04/26/2026 1 1 Encounter Details Date Type Department Care Team (Late st Contact Info) Description 04/26/2025 2:15 PM EDT Office Visit [facility] [address] [place] [address] Keith Tapia MD [address] [facility] [address] [facility] [place] [address] Coronary artery disease involving [place] coronary artery of [place] heart with other form of angina pectoris (Primary Dx); Primary hypertension; LVH (left ventricular hypertrophy); History of coronary artery bypass surgery Social History Tobacco Use Types Packs/Day Years Used Date Smoking Tobacco: Former Cigarettes Smokeless Tobacco: Never Alcohol Use Standard Drinks/Week Comments Never 0 (1 standard drink = 0.6 oz pur e alcohol) PHQ-2 Answer Date Recorded Patient Health Questionnaire-2 Score 0 07/05/2022 [place] Safety & Environment Answer Date Rec orded Fear of Current or Ex-Partner Not on file Emotionally Abused Not on file 11/07/2023 Physically Abused Not on file 11/07/2023 Sexually Abused Not on file 11/07/2023 Physically or Sexually Abused Not on file Sex and Gender Information Value Date Recorded Sex Assigned at Male 04/21/2025 9:15 AM EDT Legal Sex Male 9:13 PM EDT Gender Identity Male 04/21/2025 9:15 AM EDT Sexual Orientation Heterosexual or Straight 02/2025 9:15 AM EDT documented as of this encounter Last Filed Vital Signs Vital Sign Reading Time Taken Comments Blood Pressure 124/73 04/26/2025 1:50 PM EDT Pulse 59 04/26/2025 1:50 PM EDT Temperature - - Respiratory Rate - - Oxygen Saturation 95% 04/26/2025 1:50 PM EDT Inhaled Oxygen Concentration - - Weight 70.3 kg (155 lb) 04/26/2025 1:50 PM EDT Height 172.7 cm (5' 8 ) 04/26/2025 1:50 PM EDT Body Mass Index 23.57 04/26/2025 1:50 PM EDT documented in this encounter Progress Notes * Keith Tapia MD - 04/26/2025 2:15 PM EDT Images from the original note were not included. [place] [facility] Subjective Levon Roach is a 74 y.o. year old male patient being seen to establish care with cardiology. Patient complains of extreme fatigue. Patient states he takes gwendolyn when he has heart burn to distinguish between chest pain and heart burn. Patient would like to talk about Metoprolol and the need for it. Patient denies chest pain, SOB, MCCRAY, palpitations/heart racing, leg swelling/pain. Patient Active Problem List Diagnosis Age-related nuclear cataract of both eyes Anxiety BPH (benign prostatic hyperplasia) Chronic cough Complete tear of left rotator cuff Coronary arteriosclerosis Dysfunction of right cardiac ventricle Encounter for fitting and adjustment of hearing aid Fibromyalgia History of coronary artery bypass surgery History of myocardial infarction Hyperlipidemia Astigmatism Hypertension Intermittent claudication Intraventricular conduction defect Irritable bowel syndrome Knee joint stiffness, bilateral Left knee pain Left ventricular hypertrophy Localized osteoarthritis of right knee Lumbar radiculopathy Mood swings Nausea and vomiting Occlusion of coronary artery bypass graft Osteoarthritis Presbyopia Presence of artificial knee joint, left Primary osteoarthritis of left shoulder Prolonged emergence from general anesthesia Sensorineural hearing loss, bilateral Sinus bradycardia Subcutaneous nodule of right hand Family History Problem Relation Name Age of Onset Heart attack Mother Heart attack Father Social History Tobacco Use Smoking status: Former Types: Cigarettes Smokeless tobacco: Never Substance Use Topics Alcohol use: Never Drug use: Never HPI Levon is seen as a new patient to establish care. He used to follow with [facility] cardiology, last Cardiology visit available according to the record was in 2019. He is a 74-year-old man with history of coronary artery disease status post bypass surgery in 2016 [He had an SVG to the OM and SVG to the RCA] additional medical history includes hypertension. today he reports that he does get occasional symptoms of what he calls heartburn going up his chest. Those can happen on and off but sometimes infrequent. Last episode was 2 weeks ago. What he does is he takes sublingual nitroglycerin and the symptom goes away. Otherwise he is fairly active without chest pain, palpitations and leg edema. No dizziness or lightheadedness or near syncope. He is currently on aspirin, atorvastatin and very low-dose metoprolol succinate. Review of Systems Cardiovascular: Positive for chest pain. Negative for dyspnea on exertion, irregular heartbeat, legswelling, orthopnea, palpitations and syncope. Respiratory: Negative for cough and shortness of breath. Musculoskeletal: Negative for arthritis, falls and neck pain. Gastrointestinal: Negative for diarrhea and dysphagia. Neurological: Negative for light-headedness and loss of balance. Objective Visit Vitals BP 124/73 (BP Location: Left arm, Patient Position: Sitting) Pulse 59 Ht 1.727 m (5' 8 ) Wt 70.3 kg (155 lb) SpO2 95% BMI 23.57 kg/m?? Smoking Status Former BSA 1.84 m?? Physical Exam Constitutional: Appearance: He is well-developed. He is not ill-appearing. HENT: Head: Normocephalic and atraumatic. Nose: Nose normal. Eyes: General: No scleral icterus. Pupils: Pupils are equal, round, and reactive to light. Neck: Thyroid: No thyromegaly. Vascular: No JVD. Cardiovascular: Rate and Rhythm: Normal rate and regular rhythm. Pulses: Radial pulses are 2+ on the right side and 2+ on the left side. Heart sounds: Normal heart sounds. No murmur heard. No friction rub. No gallop. Pulmonary: Effort: Pulmonary effort is normal. No respiratory distress. Breath sounds: Normal breath sounds. No wheezing or rales. Chest: Chest wall: No tenderness. Abdominal: General: Bowel sounds are normal. There is no distension. Palpations: Abdomen is soft. Tenderness: There is no abdominal tenderness. Musculoskeletal: General: No swelling. Cervical back: Neck supple. Skin: General: Skin is warm and dry. Neurological: General: No focal deficit present. Mental Status: He is alert and oriented to person, place, and time. Psychiatric: Mood and Affect: Mood normal. Behavior: Behavior is cooperative. Judgment: Judgment normal. Allergies No Known Allergies Medications Current Outpatient Medications: aspirin 81 mg EC tablet, in the morning., Disp: , Rfl: atorvastatin (Lipitor) 40 mg tablet, atorvastatin 40 mg tablet TAKE 1 TABLET BY MOUTH ONCE DAILY FOR 90 DAYS, Disp: , Rfl: cetirizine (ZyrTEC) 10 mg tablet, Take 10 mg by mouth in the morning., Disp: , Rfl: metoprolol succinate XL (Toprol-XL) 25 mg 24 hr tablet, metoprolol succinate ER 25 mg tablet,extended release 24 hr TAKE 1/2 (ONE-HALF) TABLET BY MOUTH ONCE DAILY WITH SUPPER (Patient taking differently: 12.5 mg in the morning.), Disp: , Rfl: oxyCODONE-acetaminophen (Percocet) 5-325 mg tablet, oxycodone-acetaminophen 5 mg-325 mg tablet TAKE1 TABLET BY MOUTH THREE TIMES DAILY NEEDED FOR 7 DAYS, Disp: , Rfl: sildenafil (Viagra) 100 mg tablet, Take 100 mg by mouth if needed., Disp: , Rfl: traZODone (Desyrel) 100 mg tablet, trazodone 100 mg tablet TAKE 1 & 1 2 (ONE & ONE HALF) TABLETS BY MOUTH AT BEDTIME, Disp: , Rfl: ezetimibe (Zetia) 10 mg tablet, Take 1 tablet (10 mg) by mouth at bedtime., Disp: 90 tablet, Rfl: 3 HYDROcodone-acetaminophen ([place]) 5-325 mg tablet, Take 1 tablet by mouth if needed each day. (Patient not taking: Reported on 04/26/2025), Disp: , Rfl: nitroglycerin (Nitrostat) 0.4 mg SL tablet, Place 1 tablet (0.4 mg) under the tongue every 5 (five)minutes if needed for chest pain., Disp: 90 tablet, Rfl: 3 Recent Labs Blood testing 09/04/2024: Hemoglobin 15.4, platelets 214, potassium 4.4, BUN 20, creatinine 1.09, EGFR more than 60, hemoglobin A1c 5.5%, LFTs normal, triglycerides 81, cholesterol 152, LDL 81, HDL 55. Imaging and other tests ECG 04/26/2025: Sinus bradycardia, cannot rule out anterior infarct, age undetermined. ECG 09/01/2020: Normal sinus rhythm Possible Anterior infarct , age undetermined Abnormal ECG Echocardiogram 12/21/2015: Summary Normal left ventricular size and function are noted. Mild concentric LVH/increased wall thickness is present. There is trace mitral regurgitation. There is trace tricuspid regurgitation. Trace aortic regurgitation. There are regional wall motion abnormalities as specified. Abnormal septal motion is noted, likely due to post-operative state. The inferior wall is mildly hypokinetic. Cardiac catheterization 12/19/2015: Cardiac Arteries and Lesion Findings: Dominance: Right Dominant Left Main Coronary Artery: Left main coronary artery is normal Left Anterior Descending Artery: Left anterior descending is normal Circumflex: Circumflex has a proximal lesion of 30-90 %, long lesion First Obtuse Marginal: First obtuse marginal has an ostial lesion of 85 % Right Coronary Artery: Right coronary artery angulated, has a mid lesion of 85 % angulated and tortuous, has a mid to distal lesion of 95 %, thrombotic LV Findings: Normal systolic function mildly Elevated EDP Conclusions: Multi-vessel Coronary Disease. Normal LV Function. Recommendations: CABG - Emergent Medical therapy Risk factor modification Assessment/Plan Diagnoses and all orders for this visit: Coronary artery disease involving [place] coronary artery of [place] heart with other form of angina pectoris - nitroglycerin (Nitrostat) 0.4 mg SL tablet; Place 1 tablet (0.4 mg) under the tongue every 5 (five) minutes if needed for chest pain. - Transthoracic echo (TTE) complete; Future - Lexiscan Stress Myocardial Perfusion Imaging; Future - ezetimibe (Zetia) 10 mg tablet; Take 1 tablet (10 mg) by mouth at bedtime. - Comprehensive metabolic panel; Future Primary hypertension - Transthoracic echo (TTE) complete; Future - Lipid panel; Future - CBC and differential; Future LVH (left ventricular hypertrophy) - ECG 12 lead unit performed - Transthoracic echo (TTE) complete; Future History of coronary artery bypass surgery 1. CAD with other forms of angina: It is possible that the symptoms of heartburn represent angina. He had those symptoms before his bypass surgery. They respond to sublingual nitroglycerin. I am going to check an echocardiogram and a stress test. His most recent lipid panel in August 2024 showed LDL 81, I am going to add ezetimibe 10 mg once daily with plan to recheck lipid panel in 3 months. Target LDL should be less than 55 ideally. 2. Hypertension: This is controlled, continue current low-dose metoprolol succinate. I will also check CBC and CMP in 3 months. If the stress test shows significant ischemia then we need to proceed with cardiac catheterization. Follow up in about 3 months (around 07/27/2025). Keith Tapia MD documented in this encounter Plan of Treatment Scheduled Orders Name Type Priority Associated Diagnoses Orde r Schedule Transthoracic echo (TTE) complete Echocardiography Routine Coronary artery disease involving [place] coronary artery of [place] heart with other form of angina pectoris Primary hypertension LVH (left ventricular hypertrophy) Expected: 04/26/2025 (Approximate), Expires: 04/26/2027 Lexiscan Stress Myocardial Perfusion Imaging Cardiac Services Routine Coronary artery disease involving [place] coronary artery of [place] heart with other form of angina pectoris Expected: 04/26/2025 (Approximate), Expires: 04/26/2027 Lipid panel Lab Routine Primary hypertension Expected: 07/27/2025 (Approximate), Expires: 04/26/2026 CBC and differential Lab Routine Primary hypertension Expected: 07/27/2025 (Approximate), Expires: 04/26/2026 Comprehensive metabolic panel Lab Routine Coronary artery disease involving [place] coronary artery of [place] heart with other form of angina pectoris Expected: 07/27/2025 (Approximate), Expires: 04/26/2026 documented as of this encounter Procedures Procedure Name Priority Date/Time Associated Diagnosis Comments ECG 12 LEAD UNIT PERFORMED Routine 04/26/2025 3:21 PM EDT LVH (left ventricular hypertrophy) documented in this encounter Results * ECG 12 lead unit performed (04/26/2025 3:21 PM EDT) Keith Tapia MD ECG ORDERABLES Final Result documented in this encounter Visit Diagnoses Diagnosis Coronary artery disease involving [place] coronary artery of [place] heart with other form of angina pectoris- Primary Primary hypertension Unspecified essential hypertension LVH (left ventricular hypertrophy) Cardiomegaly History of coronary artery bypass surgery Postsurgical aortocoronary bypass status documented in this encounter Care Teams Hospice Clinical Manager Relationship Specialty Start Date End Date Ruddy Salas MD [address] [place] [id number] PCP - General Family Medicine 04/20/25 documented as of this encounter
--- OUTSIDE RECORDS SUMMARY | 2025-05-06 06:24 | XMS_ITS | Encounter Summary ---
Author Organization [facility] Address [address] [place] [address], [address] [place] [address] Care Team Providers Care Cashier Name Role Phone Ruddy Salas MD Primary Care Provider [phone] Encounter Details Date Type Department Care Team (Late st Contact Info) Description 09/26/2020 FollowUp Telephone Encounter [facility] Case Management [address] [place] [address] Tiffany Finch, RN Social History Tobacco Use Types Packs/Day Years Used Date Smoking Tobacco: Former Cigarettes Q uit: 03/18/1995 Smokeless Tobacco: Former Alcohol Use Standard Drinks/Week Comments No 0 (1 standard drink = 0.6 oz pur e alcohol) Sex and Gender Information Value Date Recorded Sex Assigned at Not on file Legal Sex Male 10:47 AM EST Gender Identity Not on file Sexual Orientation Not on file COVID-19 Exposure Response Date Recorded In the last month, have you been in contact with someone who was confirmed or suspected to have Coronavirus / COVID-19? No / Unsure 09/20/2020 12:05 PM EST documented as of this encounter Progress Notes * Tiffany Finch, EMMA - 09/26/2020 10:38 AM EST Post Discharge Follow-Up Phone Call Patient is s/p right total Knee replacement on 09/20/2020 Patient relates their condition has slightly improvedsince discharge from the hospital. Discharge disposition: Home on 09/22/2020 Facility/Agency [facility] Patient has been seen by physical therapy Any issues or questions regarding agency No Mobility: Patient is using wheeled walker Falls since discharge: No Incision status: healing well Dressing clean, dry, and intact ON-Q present: No Intake/Output issues No Pain control: Patient states Pain control is improved with current treatment. Follow up appt with surgeon scheduled for 10/03/2020 AT 1100. Other issues since discharge PT STATED HAVING PAIN AND TAKING HIS HOME MED NORCO EVERY 4 HOURS. INSTRUCTED PT HE CAN ADD IBUPROFEN PRN IF NEEDED AND TAKE DIRECTED ON THE PACKAGE. Answered all questions and encouraged patient to keep follow up appointments. documented in this encounter Plan of Treatment Not on file documented as of this encounter Visit Diagnoses Not on filedocumented in this encounter Care Teams Cashier Relationship Specialty Start Date End Date Ruddy Salas MD [address] [place] [address] PCP - General Family Medicine 03/18/18 documented as of this encounter
--- OUTSIDE RECORDS SUMMARY | 2025-05-06 06:24 | XMS_ITS | Encounter Summary ---
Author Organization [facility] Address [address] [facility] [place] [address] Care Team Providers Care Nut Blanker Operator Name Role Phone Ruddy Salas MD Primary Care Provider [phone] Encounter Details Date Type Department Care Team (Late st Contact Info) Description 12/13/2023 Abstract [facility] [address] [place] [address] Dylan Chadwick, OLIVIER [address] [place] [address] Social History Tobacco Use Types Packs/Day Years Used Date Smoking Tobacco: Former Cigarettes Smokeless Tobacco: Never Alcohol Use Standard Drinks/Week Comments Not Currently 0 (1 standard drink = 0.6 oz pur e alcohol) Sex and Gender Information Value Date Recorded Sex Assigned at Not on file Legal Sex Male 6:40 PM EDT Gender Identity Not on file Sexual Orientation Not on file documented as of this encounter Plan of Treatment Upcoming Encounters Date Type Department Care Team (Late st Contact Info) Description 07/12/2025 9:00 AM EDT Office Visit [facility] [address] [place] [address] Samanta Apple PA [address] [address] 10/18/2025 8:00 AM EST Office Visit [facility] [address] [place] [address] Dylan Chadwick, LOAN WORKOUT OFFICER [address] [place] [address] documented as of this encounter Visit Diagnoses Not on filedocumented in this encounter Care Teams Nut Blanker Operator Relationship Specialty Start Date End Date Ruddy Salas MD PCP - General Family Medicine 01/30/23 documented as of this encounter
--- OUTSIDE RECORDS SUMMARY | 2025-05-06 06:24 | XMS_ITS | Clinical Summary ---
Author Organization [employer] [facility] [employer] Address [id number] [address] [place] [address] Care Team Providers Care Ecosystem Ecology Professor Name Role Phone Ruddy Salas MD Primary Care Provider [phone] Allergies No known active allergies Medications traZODone (DESYREL) 50 mg tablet Take 1 tablet (50 mg total) by mouth nightly. Active nitroglycerin (NITROSTAT) 0.[address] 1 tablet (0.4 mg total) under the tongue every 5 (five) minutes as needed for chest pain. Please make appt for future refills 25 tablet 04/25/20 20 Active Additional Information Patient not taking.Reported on 11/19/2023 atorvastatin (LIPITOR) 40 mg tabletIndications: Coronary artery disease involving [place] coronary artery of [place] heart without angina pectoris Take 1 tablet by mouth once daily 30 tablet 07/04/20 20 Active sildenafiL (VIAGRA) 100 mg tablet Take 1 tablet (100 mg total) by mouth as needed. 02/11/20 23 Active metoprolol succinate XL (TOPROL XL) 25 mg 24 hr tablet Take 0.5 tablets (12.5 mg total) by mouth in the morning. 01/22/20 23 Active aspirin 81 mg Take 1 tablet (81 mg total) by mouth in the morning and 1 tablet (81 mg total) before bedtime. 11/18/19 24 Active ondansetron ODT (ZOFRAN ODT) 4 mg disintegrating tablet Dissolve 1 tablet (4 mg total) on tongue every 8 (eight) hours as needed for nausea or vomiting. 20 tablet 11/20/19 24 Active Active Problems Problem Noted Date Diagnosed Date Hypertension 11/20/2023 Nausea and vomiting 11/20/2023 Left knee pain, unspecified chronicity Coronary artery disease involving chin[place] coronar y artery 04/10/2019 Immunizations Immunization Administration Dates Next Due Tdap 01/12/2020 Family History Medical History Relation Name Comments Stroke Mother Relation Name Status Comments Mother Social History Tobacco Use Types Packs/Day Years Used Date Smoking Tobacco: Former Smokeless Tobacco: Never Alcohol Use Standard Drinks/Week Comments No 0 (1 standard drink = 0.6 oz pur e alcohol) [facility] Utilities Answer Date Recorded In the past 12 months has th e electric, gas, oil, or water company threatened to shut off services in your home? No 11/19/2023 AUDIT-C Answer Date Recorded Frequency of Alcohol Consumption Never 07/10/2018 Average Number of Drinks Not on file 018 Frequency of Binge Drinking Not on file 06/17 PRAPARE - Transportation Answer Date Re corded In the past 12 months, has l ack of transportation kept you from medical appointments or from getting medications? No 01/2024 In the past 12 months, has l ack of transportation kept you from meetings, work, or from getting things needed for daily living? No 11/19/2023 Housing Instability Answer Date Recorde d Are you worried or concerned that in the next two months you may not have stable housing that you own, rent or stay in as a part of a household? No 11/19/2023 Childcare Answer Date Recorded Childcare Unknown 02/25/2019 Employment Answer Date Recorded Employment Unknown 02/25/2019 Hunger Screening Answer Date Recorded Within the past 12 months we worried whether our food would run out before we got money to buy more. Never True 11/19/2023 Within the past 12 months th e food we bought just didn't last and we didn't have money to get more. Never True 11/19/2023 Purpose - Life Answer Date Recorded Purpose and direction in life Unknown Sex and Gender Information Value Date Recorded Sex Assigned at Male 01/08/2022 3:27 PM EDT Legal Sex Male 11:29 AM EDT Gender Identity Male 01/08/2022 3:27 PM EDT Sexual Orientation Straight 01/08/2022 3: 27 PM EDT Last Filed Vital Signs Vital Sign Reading Time Taken Comments Blood Pressure 151/62 11/21/2023 8:47 AM EST Pulse 57 11/21/2023 8:47 AM EST Temperature 36.6 C (97.9 F) 11/21/2023 8:47 AM EST Respiratory Rate 18 11/21/2023 8:47 AM EST Oxygen Saturation 96% 11/21/2023 8:47 AM EST Inhaled Oxygen Concentration - - Weight 72.9 kg (160 lb 11.2 oz) 11/21/2023 5:09 AM EST Height 172 cm (5' 7.72 ) 11/19/2023 8:56 AM EST Body Mass Index 24.64 11/19/2023 8:56 AM EST Plan of Treatment Health Maintenance Due Date Last Done Comments Depression Screening 1962 Zoster (Shingles) Vaccine (1 of 2) 2000 Abdominal Aortic Aneurysm (A AA) Screen 2015 Fall Risk Screening 2015 COVID-19 Vaccine (2023- 5 season) 2024 09/20/2022, 02/01/2022, 07/31/2021, Additional history exists Tobacco Screening 11/18/2024 11/19/2023 Adult BMI Screening 11/20/2024 11/21/2023 Influenza Vaccine 05/17/2025 07/09/2022, , 07/13/2020, Additional history exists DTaP,Tdap and Td Vaccines (2 - Td or Tdap) 01/11/2030 01/12/2020 Goals Goal Patient Goal Type Associated Problems Recent Progress Patient-Stated? Author home General Yes Pamela Lai LSW Note: Evaluation of progress towards goal: will have therapy evaluation later today or in a.m. Medical Devices Implanted Type Area Business Job Titles Device Identifier Shelf Expiration Date Model / Serial / Lot Cement Bn Bio 40gm Rpl [id number] - [id number] Implanted:Qty : 2 on 11/19/2023 by Keith Alas Jr., DO at [facility] Cement Knee [employer] 02/13/2026 [id number] / NA / [id number] Component Ptlr 35mm Persona Alply Kn Strl Lf - Sna - [id number] Implanted:Qty : 1 on 11/19/2023 by Keith Alas Jr., DO at [facility] Orthopedic Implant Knee [employer] 08/10/2028 [id number] / NA / [id number] Component Fem E Kn Lt Cmnt Nxgn Lpsflx Opt Zml Prlng Strl Rpl [id number] + [id number] - Sna - [id number] Implanted:Qty : 1 on 11/19/2023 by Keith Alas Jr., DO at [facility] Orthopedic Implant Knee [employer] 08/12/2033 [id number] / NA / [id number] Insert Artc 5-6 E-F 10mm Kn Fx Brng Prlng Nxgn Lpsflx Strl Rpl [id number] + [id number] - Sna - [id number] Implanted:Qty : 1 on 11/19/2023 by Keith Alas Jr., DO at [facility] Orthopedic Implant Knee [employer] 07/19/[id number] / NA / [id number] Plate Tib 41q04pp Nxgn Kn Cmnt Mdlr Stm Prect 5 Tiv Pmma Rpl [id number] + [id number] - Sna - [id number] Implanted:Qty : 1 on 11/19/2023 by Keith Alas Jr., DO at [facility] Plate Knee [employer] 05/31/2033 [id number] / NA / [id number] Explanted Type Area Business Job Titles Device Identifier Shelf Expiration Date Model / Serial / Lot Screw Gd 48mm Qd-Spr Hex Hd Mis Strl - Sna - [id number] Explanted:Qty: 1 on 11/19/2023 by Keith Alas Jr., DO at [facility] Screw Knee [employer] 09/22/[id number] / NA / [id number] Screw Gd 48mm Qd-Spr Hex Hd Mis Strl - Sna - [id number] Explanted:Qty: 1 on 11/19/2023 by Keith Alas Jr., DO at [facility] Screw Knee [employer] 08/23/2033 [id number] / NA / [id number] Screw Bn 35mm 6.5mm St Hip Actb Trlg [facility] [id number] - Sna - [id number] Explanted:Qty: 2 on 11/19/2023 by Keith Alas Jr., DO at [facility] Screw Knee [employer] 02/25/2033 [id number] / NA / [id number] Insurance [employer] MEDICARE AUTO INSURANCE MEDICARE [facility] [place] Advance Directives * Full Code (Latest Code Status on File) Date Activated Date Inactivated Comments 11/20/2023 2:43 PM 11/21/2023 1:49 PM * Full Code Date Activated Date Inactivated Comments 11/18/2023 8:29 PM 11/18/2023 8:33 PM Care Teams Ecosystem Ecology Professor Relationship Specialty Start Date End Date Ruddy Salas MD PCP - General 05/12/18
--- OUTSIDE RECORDS SUMMARY | 2025-05-06 06:24 | XMS_ITS | Encounter Summary ---
Author Organization [facility] Address [id number] [address] [place] [address] Care Team Providers Care Manager Mobility Name Role Phone Ruddy Salas MD Primary Care Provider [phone] Reason for Visit * Reason Comments Med Refill Encounter Details Date Type Department Care Team (Late st Contact Info) Description 07/04/2020 Refill [facility] [address] [facility] [address] [place] [id number] Rj Ryder, MECHANICAL ENGINEERING INTERN-CERTIFIED MIDWIFE [address] [place] [address] Med Refill Social History Tobacco Use Types Packs/Day Years Used Date Smoking Tobacco: Former Smokeless Tobacco: Never Alcohol Use Standard Drinks/Week Comments No 0 (1 standard drink = 0.6 oz pur e alcohol) AUDIT-C Answer Date Recorded Frequency of Alcohol Consumption Never 07/10/2018 Average Number of Drinks Not on file 018 Frequency of Binge Drinking Not on file 06/17 Childcare Answer Date Recorded Childcare Unknown 02/25/2019 Employment Answer Date Recorded Employment Unknown 02/25/2019 Sex and Gender Information Value Date Recorded Sex Assigned at Male 01/08/2022 3:27 PM EDT Legal Sex Male 11:29 AM EDT Gender Identity Male 01/08/2022 3:27 PM EDT Sexual Orientation Straight 01/08/2022 3: 27 PM EDT documented as of this encounter Miscellaneous Notes * Telephone Encounter - Charline Mcgee RN - 07/04/2020 9:36 AM EDT VM left to see if labs have been done. If they have not pt notified that he can go to [facility], will not need order to have done. Instructed to call office with questions or concerns. documented in this encounter Plan of Treatment Not on file documented as of this encounter Visit Diagnoses Diagnosis Coronary artery disease involving [place] coronary artery of [place] heart without angina pectoris- Primary documented in this encounter Care Teams Manager Mobility Relationship Specialty Start Date End Date Ruddy Salas MD PCP - General 05/12/18 documented as of this encounter
--- OUTSIDE RECORDS SUMMARY | 2025-05-06 06:24 | XMS_ITS | Encounter Summary ---
Author Organization [facility] Address [address] [place] [address] Care Team Providers Care Pot Tender Name Role Phone Ruddy Salas MD Primary Care Provider [phone] Encounter Details Date Type Department Care Team (Late st Contact Info) Description 11/10/2023 External Result Encounter [facility] [address] [facility] [address] [place] [id number] Jr. Keith Alas, [address] [facility] [address] [place] [address] Social History Tobacco Use Types Packs/Day Years [...] 07/12/2025 9:00 AM EDT Office Visit [facility] [address] [place] [address] Samanta Apple PA [address] [facility] [address] [place] [address] 10/18/2025 8:00 AM EST Office Visit [facility] [address] [place] [address] Dylan Chadwick, BIOINFORMATICS SPECIALIST [address] [place] [address] documented as of this encounter Procedures Procedure Name Priority Date/Time Associated Diagnosis Comments XR LOWER EXTREMITY LEG LENGTH EVALUATION 11/10/2023 2:20 PM EST documented in this encounter Results * XR lower extremity leg length evaluation (11/10/2023 2:20 PM EST) Anatomical Region Laterality Modality Lower Extremities Radiographic I maging 11/10/2023 2:20 PM EST Narrative 11/10/2023 2:18 PM EST THIS EXAM WAS PERFORMED AT [facility] CLINICAL INFORMATION:Coronary artery disease involving upper [place] coronary artery of upper [place] heart without angina pectoris; Preop examination; Urinary [...] knee, with mild, 1 degree varus alignment. Finalized by Jacques Meraz MD on 11/10/2023 2:18 PM Procedure Note Radiology, Radiologist, MD - 11/10/2023 THIS EXAM WAS PERFORMED AT [facility] CLINICAL INFORMATION:Coronary artery disease involving upper [place] coronaryartery of upper [place] heart without angina pectoris; Preop examination; Urinaryfrequency; Hypertension, unspecified type COMPARISON: 03/22/23. PROCEDURE: AP upright scanogram of the bilateral lower extremities wasobtained. Examination performed for evaluation of alignment. IMPRESSION: * Right knee arthroplasty. Postoperative changes in the distal righttibia. Cortical deformity of the right distal tibia and fibula withsurgical clips. Mild 1 degree varus alignment right knee. Severe medialcompartment degenerative changes left knee, with mild, 1 degree varusalignment. Finalized by Jacques Meraz MD on 11/10/2023 2:18 PM us Jr. Keith Alas DO IMG XR PROCEDURES Final Result documented in this encounter Visit Diagnoses Not on filedocumented in this encounter Care Teams Pot Tender Relationship Specialty Start Date End Date Ruddy Salas MD PCP - General Family Medicine 01/30/23 documented as of this encounter
--- OUTSIDE RECORDS SUMMARY | 2025-05-06 06:24 | XMS_ITS | Clinical Summary ---
Author Organization [facility] Address [address] [facility] [place] [address] Care Team Providers Care First Aid Officer Name Role Phone Ruddy Salas MD Primary Care Provider [phone] Allergies No known active allergies Medications traZODone (DESYREL) 100 MG tablet Take 150 mg by mouth nightly Active atorvastatin (LIPITOR) 40 MG tablet Take 40 mg by mouth nightly Active nitroGLYCERIN (NITROSTAT) 0.[address] 0.4 mg under the tongue every 5 minutes as needed for Chest pain up to max of 3 total doses. If no relief after 1 dose, call 911. Active metoprolol succinate (TOPROL XL) 25 MG extended release tablet Take 12.5 mg by mouth Daily with supper Active chlordiazePOXID E (LIBRIUM) 10 MG capsule Take 10 mg by mouth daily. Active docusate sodium (COLACE) 100 MG capsule Take 1 capsule by mouth 2 times daily 30 capsule 09/21/2020 Active ondansetron (ZOFRAN) 4 MG tablet Take 1 tablet by mouth every 6 hours as needed for Nausea 30 tablet 1 09/21/2020 Active aspirin 325 MG EC tablet Take 1 tablet by mouth 2 times daily for 14 days 28 tablet 09/21/2020 Active Misc. Devices (WALKER) MISC 1 each by Does not apply route daily 1 each 09/21/2020 Active pantoprazole (PROTONIX) 40 MG tablet Take 1 tablet by mouth every morning (before breakfast) for 15 days 15 tablet 1 09/22/2020 Active Active Problems Problem Noted Date Diagnosed Date Localized osteoarthritis of right knee CAD (coronary artery disease) 09/20/2020 Hyperlipidemia Fibromyalgia Mood swings Overview (09/20/2020): on librium History of prolonged emergen ce from general anesthesia in 1983 Overview (09/20/2020): after one surgery 1983 Family History Medical History Relation Name Comments Cancer Brother 1 Heart Attack Brother 1 Heart Surgery Brother 1 Diabetes Brother 2 Heart Disease Brother 3 Heart Attack Father Heart Surgery Father Heart Attack Mother Stroke Mother Diabetes Sister 1 Relation Name Status Comments Brother 1 Alive Brother 2 Alive Brother 3 Alive Father Mother Sister 1 Sister 2 Alive Social History Tobacco Use Types Packs/Day Years [...] on file Sexual Orientation Not on file Last Filed Vital Signs Vital Sign Reading Time Taken Comments Blood Pressure 129/63 09/22/2020 11:33 AM EST Pulse 65 09/22/2020 11:33 AM EST Temperature 37.1 C (98.8 F) 09/22/2020 11:33 AM EST Respiratory Rate 17 09/22/2020 11:33 AM EST Oxygen Saturation 97% 09/22/2020 11:33 AM EST Inhaled Oxygen Concentration - - Weight 70.5 kg (155 lb 6.8 oz) 09/20/2020 6:08 A M EST Height 172.7 cm (5' 8 ) 09/20/2020 6:08 AM EST Body Mass Index 23.63 09/20/2020 6:08 AM EST Plan of Treatment Not on file Medical Devices Implanted Type Area Meat Processor Device Identifier Shelf Expiration Date Model / Serial / Lot [place] Sut Healicoil W/3 Ultrabraid 5.5mm Implanted:Qty : 1 on 04/01/2018 by Kareem Whitaker MD at [facility] Fastener Left: Shoulder [employer]PMM 10/07/2021 [id number] / / [id number] Fairview Sut Healicoil W/3 Ultrabraid 5.5mm Implanted:Qty : 1 on 04/01/2018 by Kareem Whitaker MD at [facility] Fastener Left: Shoulder [employer]PMM 08/30/2020 [id number] / / [id number] Fairview Sut Healicoil W/3 Ultrabraid 5.5mm Implanted:Qty : 1 on 04/01/2018 by Kareem Whitaker MD at [facility] Fastener Left: Shoulder [employer]-PMM 11/19/2022 [id number] / / [id number] Dup Use [id number] Impl Knee Psn All Poly Pat Ply 29mm Implanted:Qty : 1 on 09/20/2020 by Kareem Whitaker MD at [facility] Knee Right: Knee [employer]-PMM 06/05/2028 [id number] / / [id number] Psn Tib Stm 5 Deg Sz F R Implanted:Qty : 1 on 09/20/2020 by Kareem Whitaker MD at [facility] Knee Right: Knee [employer]-WD 04/21/2030 [id number] / / [id number] Psn Mc Ve Asf R 10mm 8-11 Ef Implanted:Qty : 1 on 09/20/2020 by Kareem Whitaker MD at [facility] Knee Right: Knee [employer]- 01/13/2025 [id number] / / [id number] Impl Psn Fem Cp Cmt Ccr Std Sz8r Implanted:Qty : 1 on 09/20/2020 by Kareem Whitaker MD at [facility] Shoulder/Ar m/Wrist/Santana d Right: Knee [employer]-PMM 04/16/2030 [id number] / / [id number] Cement Bne 40gm Hi Visc Radpq For Rev Surg Implanted:Qty : 2 on 09/20/2020 by Kareem Whitaker MD at [facility] Right: Knee [employer]- 09/15/2024 [id number] / / [id number] Description:LOT # SAME Screw Bne L25mm Dia2.5mm Knee Full Thrd Hex Fem Persona Implanted:Qty : 1 on 09/20/2020 by Kareem Whitaker MD at [facility] Right: Knee [employer]-WD 08/15/2029 [id number] / / [id number] Insurance [address] [place] [address] MEDICARE [facility]ICAL [place] Advance Directives * Full Code (Latest Code Status on File) Date Activated Date Inactivated Comments 09/20/2020 11:51 AM 09/22/2020 6:51 PM Care Teams First Aid Officer Relationship Specialty Start Date End Date Ruddy Salas MD [address] [place] [address] PCP - General Family Medicine 03/18/18
--- OUTSIDE RECORDS SUMMARY | 2025-05-06 06:24 | XMS_ITS | Clinical Summary ---
Author Organization [facility] Address [address] [place] [address] Care Team Providers Care Steam Shovel Oiler Name Role Phone Ruddy Salas MD Primary Care Provider [phone] Allergies No known active allergies Medications cetirizine (ZyrTEC) 10 MG chewable tablet Chew 10 mg in the morning. 2 Active HYDROcodone-holly taminophen ([place]) 5-325 MG tablet 1-2 tablets Orally every 4 hrs prn pain not to exceed 8 in 24 hours Active aspirin 81 MG EC tablet Take 1 tablet by mouth in the morning. Active atorvastatin (Lipitor) 40 MG tablet TAKE 1 TABLET BY MOUTH ONCE DAILY FOR 90 DAYS Active traZODone (Desyrel) 100 MG tablet TAKE 1 & 1 2 (ONE & ONE HALF) TABLETS BY MOUTH AT BEDTIME Active sildenafil (Viagra) 100 MG tablet Take 100 mg by mouth Daily as needed. 3 Active metoprolol succinate XL (Toprol-XL) 25 MG 24 hr tablet TAKE 1/2 (ONE-HALF) TABLET BY MOUTH ONCE DAILY WITH SUPPER 3 Active nitroglycerin (Nitrostat) 0.[address] 1 tablet as needed by sublingual route. Active Active Problems Problem Noted Date Diagnosed Date Acute pain of left knee 12/10/2023 Presence of artificial knee joint, left 12/10/19 24 Knee joint stiffness, bilateral 12/10/2023 Prolonged emergence from general anesthesia 05/17 Overview (06/03/2023): after one surgery 1983 Primary osteoarthritis of left shoulder 06/03/20 Primary osteoarthritis of left knee 06/03/2023 Presbyopia 06/03/2023 Osteoarthritis 06/03/2023 Occlusion of coronary artery bypass graft 2022 Mixed hyperlipidemia 06/03/2023 Hyperlipidemia 06/03/2023 Hypertension 06/03/2023 Fibromyalgia 06/03/2023 Complete tear of left rotator cuff 06/03/2023 Hyperopia 06/03/2023 Overview (06/03/2023): January 26, 2014 Entered By: DENA AKINS OD Comment: OD Astigmatism 06/03/2023 Age-related nuclear cataract of both eyes 2022 Localized osteoarthritis of right knee CAD (coronary artery disease) 09/20/2020 History of coronary artery bypass surgery 2019 Coronary arteriosclerosis 09/04/2019 Arteriosclerosis of coronary artery 04/10/2019 Resolved Problems Problem Noted Date Diagnosed Date Resolved Date Mood swings 06/03/2023 11/11/2023 Overview (06/03/2023): on librium Immunizations Immunization Administration Dates Next Due Influenza, Seasonal, Quadrivalent, Adjuvanted Influenza, Unspecified 07/10/2017 Influenza, injectable, quadrivalent, preservativ e free 06/17/2017 Influenza, trivalent, adjuvanted 06/13/2021,06/17 Pneumococcal Polysaccharide PPSV23 05/20/2017, Tdap 01/12/2020 Family History Medical History Relation Name Comments Heart disease Brother Hypertension Brother Heart disease Father Hypertension Father Diabetes Mother Heart disease Mother Hypertension Mother Stroke Mother Melanoma Neg Hx Relation Name Status Comments Brother Father Mother Social History Tobacco Use Types Packs/Day [...] Sign Reading Time Taken Comments Blood Pressure 129/75 11/28/2017 12:00 PM EDT Pulse - - Temperature - - Respiratory Rate - - Oxygen Saturation - - Inhaled Oxygen Concentration - - Weight 68.9 kg (152 lb) 10/23/2023 8:08 AM EST Height 172.7 cm (5' 8 ) 10/23/2023 8:08 AM EST Body Mass Index 23.11 10/23/2023 8:08 AM EST Plan of Treatment Upcoming Encounters Date Type Department Care Team (Late st Contact Info) Description 07/12/2025 9:00 AM EDT Office Visit [facility] [address] [place] [address] Samanta Apple, PA [address] [place] [address] 10/18/2025 8:00 AM EST Office Visit [facility] [address] [place] [address] Dylan Chadwick, STOCK CLERK SELF SERVICE STORE [address] [place] [address] Health Maintenance Due Date Last Done Comments CT Colonography 1950 Colonoscopy 1950 Colorectal Cancer Screening 1950 FIT-DNA 1950 FIT 1950 FOBT 1950 Sigmoidoscopy 1950 Pneumococcal Vaccine: 65+ Ye ars (2 of 2 - PCV) 05/20/2018 05/20/2017, 01/04/2017 Influenza Vaccine (#1) 2025 2, 06/13/2021, 07/13/2020, Additional history exists Insurance [address] [place] [address] MEDICARE [employer] Care Teams Steam Shovel Oiler Relationship Specialty Start Date End Date Ruddy Salas MD PCP - General Family Medicine 01/30/23
--- OUTSIDE RECORDS SUMMARY | 2025-05-06 06:24 | XMS_ITS | Clinical Summary ---
Author Organization [facility] Address [address] [place] [address] Care Team Providers Care Optical Engineer Name Role Phone Ruddy Salas MD Primary Care Provider Allergies No known active allergies Medications atorvastatin (Lipitor) 40 mg tablet atorvastatin 40 mg tablet TAKE 1 TABLET BY MOUTH ONCE DAILY FOR 90 DAYS 0 Active aspirin 81 mg EC tablet in the morning. Acti ve metoprolol succinate XL (Toprol-XL) 25 mg 24 hr tablet metoprolol succinate ER 25 mg tablet,extended release 24 hr TAKE 1/2 (ONE-HALF) TABLET BY MOUTH ONCE DAILY WITH SUPPER 1 Active oxyCODONE-acet aminophen (Percocet) 5-325 mg tablet oxycodone-acetam inophen 5 mg-325 mg tablet TAKE 1 TABLET BY MOUTH THREE TIMES DAILY NEEDED FOR 7 DAYS Active traZODone (Desyrel) 100 mg tablet trazodone 100 mg tablet TAKE 1 & 1 2 (ONE & ONE HALF) TABLETS BY MOUTH AT BEDTIME Active cetirizine (ZyrTEC) 10 mg tablet Take 10 mg by mouth in the morning. Active sildenafil (Viagra) 100 mg tablet Take 100 mg by mouth if needed. 3 Active HYDROcodone-ac etaminophen (Potrero) 5-325 mg tablet Take 1 tablet by mouth if needed each day. Active nitroglycerin (Nitrostat) 0.4 mg SL tabletIndicati ons:Coronary artery disease involving [place] coronary artery of [place] heart with other form of angina pectoris Place 1 tablet (0.4 mg) under the tongue every 5 (five) minutes if needed for chest pain. 90 tablet 3 5 Active ezetimibe (Zetia) 10 mg tabletIndicati ons:Coronary artery disease involving [place] coronary artery of [place] heart with other form of angina pectoris Take 1 tablet (10 mg) by mouth at bedtime. 90 tablet 3 5 026 Active nitroglycerin (Nitrostat) 0.[address] 0.4 mg under the tongue every 5 (five) minutes if needed. 0 025 Discontin ued(Reord er) Active Problems Problem Noted Date Diagnosed Date Anxiety 04/26/2025 BPH (benign prostatic hyperplasia) 04/26/2025 Chronic cough 04/26/2025 Dysfunction of right cardiac ventricle Encounter for fitting and adjustment of hearing aid 04/26/2025 History of myocardial infarction 04/26/2025 Hypertension 04/26/2025 Intermittent claudication 04/26/2025 Intraventricular conduction defect 04/26/2025 Irritable bowel syndrome 04/26/2025 Left ventricular hypertrophy 04/26/2025 Lumbar radiculopathy 04/26/2025 Mood swings 04/26/2025 Overview (04/26/2025): on librium Osteoarthritis 04/26/2025 Sensorineural hearing loss, bilateral 04/26/2025 Sinus bradycardia 04/26/2025 Subcutaneous nodule of right hand 04/26/2025 Knee joint stiffness, bilateral 12/10/2023 Presence of artificial knee joint, left 12/10/19 24 Nausea and vomiting 11/20/2023 Left knee pain 11/18/2023 Age-related nuclear cataract of both eyes 2022 Complete tear of left rotator cuff 06/03/2023 Fibromyalgia 06/03/2023 Hyperlipidemia 06/03/2023 Astigmatism 06/03/2023 Occlusion of coronary artery bypass graft 2022 Presbyopia 06/03/2023 Primary osteoarthritis of left shoulder 06/03/20 23 Prolonged emergence from general anesthesia 05/17 Overview (04/26/2025): after one surgery 1983 Localized osteoarthritis of right knee 01/05/202 1 History of coronary artery bypass surgery 2019 Coronary arteriosclerosis 09/04/2019 Encounters Date Type Department Care Team Description 04/26/2025 2:15 PM EDT Office Visit [facility] [place] [address] [place] [id number] Keith Tapia MD Coronary artery disease involving [place] coronary artery of [place] heart with other form of angina pectoris (Primary Dx); Primary hypertension; LVH (left ventricular hypertrophy); History of coronary artery bypass surgery from Last 3 Months Family History Medical History Relation Name Comments Heart attack Father Heart attack Mother Relation Name Status Comments Father Mother Social History Tobacco Use Types Packs/Day Years Used Date Smoking Tobacco: Former Cigarettes Smokeless Tobacco: Never Tobacco Cessation:Counseling Given: Not Answered Alcohol Use Standard Drinks/Week Comments Never 0 [...] Heterosexual or Straight 02/2025 9:15 AM EDT Last Filed Vital Signs Vital Sign [...] Mass Index 23.57 04/26/2025 1:50 PM EDT Plan of Treatment Health Maintenance Due Date Last Done Comments CT Colonography 1950 Colonoscopy 1950 Colorectal Cancer Screening 1950 FIT-DNA 1950 FIT 1950 FOBT 1950 Medicare Annual Wellness (AWV) 1950 Sigmoidoscopy 1950 Depression Screening 1962 Zoster Vaccines (1 of 2) 2000 Fall Risk Screening 2015 Pneumococcal Vaccine: 50+ Years (2 of 2 - PCV) 05/20/2018 05/20/2017, 01/04/2017 COVID-19 Vaccine ( season) 2024 09/20/2022, 02/01/2022, 07/31/2021, Additional history exists Influenza Vaccine (#1) 2025 2, 06/13/2021, 07/13/2020, Additional history exists Adult Tetanus 01/11/2030 01/12/2020 HIB Vaccines Aged Out No longer eligi ble based on patient's age to complete this topic HPV Vaccines Aged Out No longer eligi ble based on patient's age to complete this topic IPV Vaccines Aged Out No longer eligi ble based on patient's age to complete this topic Meningococcal B Vaccine Aged Out No l onger eligible based on patient's age to complete this topic Meningococcal Vaccine Aged Out No fiordaliza kirsten eligible based on patient's age to complete this topic Rotavirus Vaccines Aged Out No longer eligible based on patient's age to complete this topic Procedures Procedure Name Priority Date/Time Associated Diagnosis Comments ECG 12 LEAD UNIT PERFORMED Routine 04/26/2025 3:21 PM EDT LVH (left ventricular hypertrophy) from Last 3 Months Results * ECG 12 lead unit performed (04/26/2025 3:21 PM EDT) Keith Tapia MD ECG ORDERABLES Final Result from Last 3 Months [place] [address] [place] [address] Care Teams Optical Engineer Relationship Specialty Start Date End Date Ruddy Salas MD [id number] [facility] [address] PCP - General Family Medicine 04/20/25
--- OUTSIDE RECORDS SUMMARY | 2025-05-06 06:25 | XMS_ITS | CCD ---
Author Organization [facility] CliniSyme Care Team Providers Care Manager Cash Name Role Phone PHYSICIAN, DEFAULT Unavailable Unavailable PHYSICIAN, DEFAULT Unavailable Unavailable Ruddy Yin Primary Care Provider RUDDY YIN Primary Care Unavailable KAREEM DIAZ Referring Unavailable RUDDY YIN Primary Care Unavailable RUDDY YIN Primary Care Unavailable BLOOD, MOMO P Consulting Unavailable KAREEM DIAZ Attending Unavailable KAREEM DIAZ Admitting Unavailable LINDA, TYSON Sales Consulting Unavailable HOY ., DR NASH Admitting [...] Unavailable HOY ., DR NASH Attending Unavailable ZIER, DR VALERIE Mtz Consulting Unavailable HOY ., DR NASH Primary Care Unavailable HOY ., DR NASH Consulting Unavailable HOY ., DR NASH Admitting Unavailable HOY ., DR NASH Attending Unavailable [place], DR ANI Adame Consulting Unavailable HOY ., DR NASH Primary Care Unavailable HOY ., DR NASH Consulting Unavailable HOY ., DR NASH Admitting Unavailable HOY ., DR NASH Attending Unavailable HOY ., DR NASH Primary Care Unavailable HOY ., DR NASH Admitting Unavailable HOY ., DR NASH Attending Unavailable HOY ., DR NASH Consulting Unavailable Julio Cesary Ruddy CADET Primary Care Provider JUAN CARLOS ALAS JR Admitting UnavailJUAN CARLOS Nicolas JR Attending Unavailabl e HOY, RUDDY M Primary Care Unavailable RUDY VIRAMONTES Consulting Unavailable CHON WILKINSON Attending Unavailable ANNAMARIARUDDY M Primary Care Unavailable JUAN CARLOS ALAS JR Referring Unavailabl e HORonny, RUDDY M Primary Care Unavailable STEPDAMIEN JR, JUAN CARLOS Fisher Referring Unavailabl e HORonny, RUDDY M Primary Care Unavailable JUAN CARLOS ALAS JR Attending Unavailabl e STEPANIC JUAN CARLOS LORD Referring Unavailabl e ANNAMARIA, RUDDY M Primary Care Unavailable JUAN CARLOS ALAS JR Attending Unavailabl e STEPANIC JUAN CARLOS LORD Referring Unavailabl e ANNAMARIA, RUDDY M Primary Care Unavailable JUAN CARLOS ALAS JR Attending Unavailabl e STEPJUAN CARLOS QUEZADA JR Referring Unavailabl e ANNAMARIA, RUDDY M Primary Care Unavailable JUAN CARLOS ALAS JR Attending Unavailabl e JUAN CARLOS ALAS JR Referring Unavailabl sujata YIN, RUDDY M Primary Care Unavailable Annamaria Ruddy Primary Care Physician SANDRA BURR Attending Unavailable SANDRA BURR Referring Unavailable MC OSMAN Attending Unavailable SANDRA BURR Attending Unavailable SANDRA [...] Referring Unavaila ble LUKE GUZMAN Attending Unavailable JR KAMALA., JUAN CARLOS Fisher Referring Unavaila ble SANDRA BURR Attending Unavailable SANDRA BURR Referring Unavailable BARBY GRIGGS Attending Unavailable JR. KAMALA, JUAN CARLOS Fisher Referring Unavaila ble LUKE GUZMAN Attending Unavailable JR. KAMALA, JUAN CARLOS Fisher Referring Unavaila ble BARBY GRIGGS Attending Unavailable JR KAMALA., JUAN CARLOS Fisher Referring Unavaila ble LUKE GUZMAN Attending Unavailable JR. KAMALA, JUAN CARLOS Fisher Referring Unavaila ble BARBY GRIGGS Attending Unavailable JR. KAMALA, JUAN CARLOS Fisher Referring Unavaila ble LUKE GUZMAN Attending Unavailable JR KAMALA., JUAN CARLOS Fisher Referring Unavaila ble BARBY GRIGGS Attending Unavailable JR. KAMALA, JUAN CARLOS Fisher Referring Unavaila BARBY Crandall Attending Unavailable JR. KAMALA, JUAN CARLOS Fisher Referring Unavaila BARBY Crandall Attending Unavailable JR. KAMALA, JUAN CARLOS Fisher Referring Unavaila BARBY Crandall Attending Unavailable JR. KAMALA, JUAN CARLOS Fisher Referring Unavaila SANDRA Marsh Attending Unavailable SANDRA BURR Attending Unavailable BURRSANDRA Referring Unavailable SAMANTA STERN Attending Unavailable BURRSANDRA T Attending Unavailable NILL, Amadeo R Attending Unavailable NILL, Amadeo R Attending Unavailable NILL, Amadeo R Attending Unavailable NILL, Amadeo R Admitting Unavailable NILL, Amadeo R Attending Unavailable NILL, Amadeo R Attending Unavailable Annamaria CADET, Ruddy Ford Primary Care Provider [phone] JUAN CARLOS POTTER Unavailable Allergies Allergy Classification Reported Allergen(s) Allergy Type Date of Onset Reaction(s) Facility (5 sources) Amoxicillin / Clavulanate; Translations: [amoxicillin-cla vulanate] Drug Allergy Nausea, Blurry Vision, Fluid Retention [facility] [place] Medications Current Medications Medication Drug Class(es) Dates Sig (Normalized) Sig (Original) acetaminophen 325 mg / HYDROcodone bitartrate 5 mg oral tablet (20 sources) Opioid Agonist Start: 09-07-2024 take 1 tablet by mouth four times daily as needed for pain acetaminophen-hyd rocodone 325 mg-5 mg oral tablet 1 tab(s), Oral, QID as needed for pain, Refill(s) 0 Start Date: 09/07/24 Status: Ordered Start: 09-22-2020 HYDROcodone-ac etaminophen (NORCO) 5-325 MG per tablet 1 tablet take 1-2 tablets by mouth every four hours as needed for pain, then take 8 tablets by mouth every twenty-four hours as needed for pain HYDROcodone-acetaminophen ([place]) 5-325 MG tablet 1-2 tablets Orally every [...] carbonate (TUMS) chewable tablet 500 mg aspirin 81 mg delayed release oral tablet (20 sources) Platelet Aggregation Inhibitor, Nonsteroidal Anti-inflammator y Drug Start: 09-07-2024 take 1 tablet by mouth once daily aspirin 81 mg Oral EC Tab 81 mg = 1 tab(s), Oral, Daily, Refills(s) 0 Start Date: 09/07/24 Status: Ordered Start: 09-07-2024 End: 09-21-2020 take 1 tablet by mouth once daily aspirin 81 mg Oral EC Tab 81 mg = 1 tab(s), Oral, Daily, Refills(s) 0 Start Date: 09/07/24 Status: Ordered Start: 09-20-2020 End: 10-05-2020 take 1 tablet by mouth twice daily aspirin 325 MG EC tablet Take 1 tablet by mouth 2 times daily for 14 days 28 tablet 0 09/21/2020 10/05/2020 Active take 1 tablet by obey th in the morning aspirin 81 MG EC tablet Take 1 tablet by mouth in the morning. Active atorvastatin 40 mg oral tablet (20 sources) HMG-CoA Reductase Inhibitor Start: 07-04-2020 take 1 tablet by mouth once daily atorvastatin 40 mg Tab 40 mg = 1 tab(s), Oral, Daily, Refills(s) 0 Start Date: 09/07/24 Status: Ordered cetirizine hydrochloride 10 mg oral tablet (18 sources) Histamine-1 Receptor Antagonist Start: 09-07-2024 take 1 tablet by mouth once daily cetirizine 10 mg Tab 10 mg = 1 tab(s), Oral, Daily, Refills(s) 0 Start Date: 09/07/24 Status: Ordered Start: 07-11-2022 cetirizine (Zy rTEC) 10 MG chewable tablet Chew 10 mg [...] CLEANUP) docusate sodium 50 mg / sennosides, skilled nursing 8.6 mg oral tablet (1 source) Start: [...] succinate 25 mg extended release oral tablet (20 sources) beta-Adrenerg ic Deondre Start: 01-21-2023 metoprolol succinate 25 mg ER Tab 12.5 mg = 0.5 tab(s), Oral, Daily, Refills(s) 0 Start Date: 09/07/24 Status: Ordered Start: 01-21-2023 take 0.5 tablet by m [...] 09/21/2020 Active nitroglycerin 0.4 mg sublingual tablet (20 sources) Nitrate Vasodilator Start: 09-07-2024 nitroglyce rin 0.4 mg sublingual Tab 0.4 mg = 1 tab(s), SubLingual, q5min, PRN for chest pain, Refills(s) 0 Start Date: 09/07/24 Status: Ordered Start: 04-25-2020 0.4 mg, [place] gual, EVERY 5 MIN PRN, Chest pain, Starting [...] 12.5 mg sildenafil 100 mg oral tablet (19 sources) Phosphodiesterase 5 Inhibitor Start: 02-10-2023 take 1 tablet by mouth once daily sildenafil 100 mg Tab 100 mg = 1 tab(s), Oral, Daily, Refills(s) 0 Start Date: 09/07/24 Status: Ordered 3 ml sodium chloride 9 mg/ml injection [...] every IV line use Post-op traZODone hydrochloride 100 mg oral tablet (20 sources) Serotonin Reuptake Inhibitor Start: 09-07-2024 take 2 tablets by mouth once daily at bedtime traZODONE 100 mg Tab 200 mg = 2 tab(s), Oral, Once a day (at bedtime), Refills(s) 0 Start Date: 09/07/24 Status: Ordered Start: 09-20-2020 take 150 mg by mouth once melani y 150 mg, Oral, NIGHTLY, First dose on [...] End: 09-20-2020 gabapentin (NEURONTIN) capsule 300 mg methylPREDNISolone (12 sources) Corticosteroid Start: 11-04-2023 End: 10-22-2024 methylPREDNISolone (Medrol Dospak) 4 MG tablets Indications: Primary osteoarthritis of left knee Follow schedule on package instructions 21 tablet 11/04/2023 10/22/2024 Discontinued (Therapy completed) Start: 11-04-2023 methylPREDNISo lone (Medrol Dospak) 4 MG tablets Indications: Primary osteoarthritis of left knee Follow schedule on package instructions 21 tablet 11/04/2023 Active 2 ml midazolam 1 mg/ml injection (1 source) Benzodiazepine Start: 09-20-2020 End: 09-20-2020 midazolam (VERSED) injection 2 mg 72 hr scopolamine 0.0139 mg/hr transdermal system (1 source) Anticholinergic Start: 09-20-2020 End: 09-20-2020 scopolamine (TRANSDERM-SCOP) transdermal patch 1 patch Problems Active Problems Problem Classification Problem Date Documented Da te Episodic/Chronic Anxiety disorders (4 sources) Anxiety 09-07-2024 Chronic Cardiac dysrhythmias (4 sources) Sinus bradycardia 09-07-2024 Episodic Cataract (14 sources) Bilateral age-related nuclear cataracts; Translations: [Age-related nuclear cataract, bilateral] Onset: 3 06-03-2023 Chronic Complication of device; implant or graft (14 sources) Coronary artery bypass graft occlusion; Translations: [Other specified complication of vascular prosthetic devices, implants and grafts, initial encounter] Onset: 3 06-03-2023 Chronic Conduction disorders (4 sources) Intraventricular conduction defect 09-07-2024 Chronic Coronary atherosclerosis and other heart disease (20 sources) Coronary arteriosclerosis; Translations: [Atherosclerotic heart disease of [place] coronary artery without angina pectoris] Onset: 9 09-20-2020 Chronic Disorders of lipid metabolism (20 sources) Hyperlipidemia; Translations: [Hyperlipidemia, unspecified] Onset: 3 09-20-2020 Chronic Essential hypertension (20 sources) Hypertensive disorder; Translations: [Essential (primary) hypertension] Onset: 3 06-03-2023 Chronic Genitourinary symptoms and ill-defined conditions (3 sources) Nocturia; Translations: [Frequency of micturition] Onset: 3 11-05-2023 Episodic Hyperplasia of prostate (4 sources) Benign prostatic hyperplasia 09-07-2024 Chronic Mood disorders (2 sources) Mood swings; Translations: [Mood swings] 09-20-2020 Chronic Nutritional deficiencies (1 source) Vitamin D deficiency, unspecified; Translations: [VITAMIN D DEFICIENCY UNSPECIFIED] Onset: 3 Chronic Osteoarthritis (20 sources) Osteoarthritis of knee; Translations: [Bilateral primary osteoarthritis of knee] Onset: 1 09-20-2020 Chronic Other and ill-defined heart disease (4 sources) Dysfunction of right cardiac ventricle 09-07-2024 Chronic Other and ill-defined heart disease (4 sources) Left ventricular hypertrophy 09-07-2024 Chronic Other and ill-defined heart disease (2 sources) Cardiomegaly; Translations: [Cardiomegaly] Onset: 5 Chronic Other and unspecified benign neoplasm (2 sources) Melanocytic nevus of trunk; Translations: [Melanocytic nevi of trunk] 07-06-2024 Episodic Other connective tissue disease (1 source) Presence of left artificial knee joint; Translations: [Presence of left artificial knee joint] Onset: 4 Chronic Other connective tissue disease (12 sources) Artificial knee joint present; Translations: [Presence of left artificial knee joint] Onset: 4 12-10-2023 Chronic Other connective tissue disease (6 sources) History of total knee arthroplasty; Translations: [Presence of left artificial knee joint] 07-23-2024 Chronic Other connective tissue disease (20 sources) Fibromyalgia; Translations: [Fibromyalgia] Onset: 3 09-20-2020 Episodic Other gastrointestinal disorders (4 sources) Irritable bowel syndrome 09-07-2024 Chronic Other lower respiratory disease (4 sources) Chronic cough 09-07-2024 Episodic Other nervous system disorders (1 source) Acute postoperative pain; Translations: [Acute postoperative pain] Episodic Other non-traumatic joint disorders (4 sources) Other specified arthritis, left knee; Translations: [OTHER SPECIFIED ARTHRITIS LEFT KNEE] Onset: 3 Chronic Other non-traumatic joint disorders (20 sources) Pain in left knee; Translations: [Pain in joint, lower leg] Onset: 3 10-23-2023 Episodic Other skin disorders (2 sources) Seborrheic keratosis; Translations: [Other seborrheic keratosis] 07-06-2024 Episodic Other skin disorders (2 sources) Mass of subcutaneous tissue of right upper limb; Translations: [Localized swelling, mass and lump, right upper limb] Onset: 5 Episodic Other skin disorders (4 sources) Nodule of subcutaneous tissue of right hand 09-29-2024 Episodic Peripheral and visceral atherosclerosis (8 sources) Intermittent claudication; Translations: [Peripheral vascular disease] 09-07-2024 Chronic Rheumatoid arthritis and related disease (4 sources) Rheumatoid arthritis 09-07-2024 Chronic Spondylosis; intervertebral disc disorders; other back problems (4 sources) Lumbar radiculopathy 09-07-2024 Episodic Unclassified (1 source) Patient encounter status; Translations: [Preop testing] Unclassified (2 sources) Delayed recovery from general anesthesia; Translations: [Prolonged emergence from general anesthesia] 09-20-2020 Unclassified (3 sources) CONTACT W/AND (SUSP) EXPOS COVID-19; Translations: [CONTACT W/AND (SUSP) EXPOS COVID-19] Onset: 2 Unclassified (1 source) left knee degenerative joint disease, right knee adhesive capsulitis Onset: 4 Past or Other Problems Problem Classification Problem Date Documented Da te Episodic/Chronic Blindness and vision defects (20 sources) Presbyopia; Translations: [Presbyopia] Onset: 06-03-2023 06-03-2023 Episodic Complications of surgical procedures or medical care (14 sources) Delayed recovery from general anesthesia; Translations: [Other complications of anesthesia, initial encounter] Onset: 06-03-2023 06-03-2023 Episodic Coronary atherosclerosis and other heart disease (1 source) Presence of aortocoronary bypass graft; Translations: [PRESENCE AORTOCORONARY BYPASS GRAFT] Onset: 11-18-2022 Episodic Diabetes mellitus without complication (1 source) Other abnormal glucose; Translations: [OTHER ABNORMAL GLUCOSE] Onset: 11-18-2022 Episodic Mood disorders (14 sources) Mood swings; Translations: [Emotional lability] Onset: 06-03-2023 Resolved: 11-11-2023 06-03-2023 Episodic Other connective tissue disease (14 sources) Full thickness rotator cuff tear; Translations: [Complete rotator cuff tear or rupture of left shoulder, not specified as traumatic] Onset: 06-03-2023 06-03-2023 Episodic Other non-traumatic joint disorders (12 sources) Bilateral stiffness of knee joints; Translations: [...] Results Test Name Value Interpretation Reference Range Facility Office Visiton 04-26-2025 Follow-up visit [id number] Levon Bond 1950 M Date Provider Department Center 04/26/2025 Radha-JUAN CARLOS POTTER [facility] Family History Problem Relation Age of Onset Heart attack Mother Heart attack Father Family Status - Relation Status Age at Mother Father Level of Service:88005 MS OFFICE/OUTPATIENT NEW MODERATE MDM 45 MINUTES (25) Normal [facility] XR Knee - left 1 or 2 Viewso n 10-22-2024 Imaging Result: 10/22/2024: Standing AP and LAT of left knee showed surgical position and alignment of prosthetic components without evidence of loosening or wear to the femoral, tibial, or patellar components. The alignment appeared to be anatomic. There was no evidence of accelerated or asymmetric wear to the patellar button or tibial tray. There was no evidence of fracture and/or dislocation. Impression: Stable LT total knee replacement. 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 (Electronic Signature) Ankit Peters MD PhD 10/19/2024 10:03 Clinical Information enlarging subcutaneous cyst right wrist Pre-Op Diagnosis: inclusion cyst Procedure: excisional biopsy cyst right wrist Post-Op Diagnosis: Subcutaneous nodule of right hand Specimen(s) Received right wrist cyst Gross Description Received in formalin labeled with patient name, number, and right wrist is an irregularly shaped fragment of mcgarry tissue measuring 0.5 x 0.4 x 0.2 cm. Specimen is entirely submitted in one cassette. (DC) DC:[facility] Microscopic Description Microscopic examination performed unless gross only specified. This report was transcribed using voice recognition technology and might contain unintended computerized cattle and wheat farmer errors. Normal [facility] Comment on above: Performed By: #### [id number] #### Julio César [facility] [address] [place] [address] Ambulatory Visit Summaryon 0 10-13-2024 Ambulatory Visit Summary Ambulatory Visit Summary LEVON BOND :1950 Visit Date:10/13/2024 Ambulatory Visit Instructions Your Care Team Attending Physician - WILIAM CADET, Amadeo Mtz Primary Care Physician - Ruddy Yin MD This Is Your Medications List Contact prescribing physician if questions or concerns acetaminophen-hydro codone (acetaminophen-hydr ocodone 325 mg-5 mg oral tablet) aspirin (aspirin 81 mg Oral EC Tab) atorvastatin (atorvastatin 40 mg Tab) cetirizine (cetirizine 10 mg Tab) metoprolol (metoprolol succinate 25 mg ER Tab) nitroglycerin (nitroglycerin 0.4 mg sublingual Tab) sildenafil (sildenafil 100 mg Tab) trazodone (traZODONE 100 mg Tab) Procedures Performed Arthroplasty of left knee, Arthroplasty of right knee, Bilateral carpal tunnel release, Cardiac catheterization, Cervical laminectomy, Coronary artery bypass, vein only; 2 coronary venous grafts, Excision of cyst, Graft of skin, ORIF - Open reduction and internal fixation of fracture, Rotator cuff repair. Medications What How Much When Instructions Unchanged acetaminophen-hydro codone (acetaminophen-hydr ocodone 325 mg-5 mg oral tablet) 1 Tablets By Mouth 4 times a day as needed for as needed for pain Contact prescribing physician if questions or concerns Unchanged aspirin (aspirin 81 mg Oral EC Tab) 1 Tablets By Mouth Every day Contact prescribing physician if questions or concerns Unchanged atorvastatin (atorvastatin 40 mg Tab) 1 Tablets By Mouth Every day Contact prescribing physician if questions or concerns Unchanged cetirizine (cetirizine 10 mg Tab) 1 Tablets By Mouth Every day Contact prescribing physician if questions or concerns Unchanged metoprolol (metoprolol succinate 25 mg ER Tab) 0.5 Tablets By Mouth Every day Contact prescribing physician if questions or concerns Unchanged nitroglycerin (nitroglycerin 0.4 mg sublingual Tab) 1 Tablets Sublingual Every 5 minutes as needed for for chest pain Contact prescribing physician if questions or concerns Unchanged sildenafil (sildenafil 100 mg Tab) 1 Tablets By Mouth Every day Contact prescribing physician if questions or concerns Unchanged trazodone (traZODONE 100 mg Tab) 2 Tablets By Mouth Once a day (at bedtime) Contact prescribing physician if questions or concerns Allergies amoxicillin-clavula fernie (Nausea, Blurry Vision, Fluid Retention) Problems Ongoing - Any problem that you are currently receiving treatment for. Anxiety BPH (benign prostatic hyperplasia) Chronic cough Coronary arteriosclerosis Dysfunction of right cardiac ventricle Essential hypertension Fibromyalgia History of myocardial infarction Hyperlipidemia Intermittent claudication Intraventricular conduction defect Irritable bowel syndrome Left ventricular hypertrophy Lumbar radiculopathy Peripheral vascular disease Rheumatoid arthritis Sinus bradycardia Subcutaneous nodule of right hand Patient Survey You may receive a survey via text or e-mail asking about your office visit. Please share your experience with us by completing your survey. We appreciate your feedback and thank you for choosing us for your care. Normal Angela [facility] General Surgery Office/Clini c Noteon 10-13-2024 General Surgery Office/Clinic Note General Surgery Office/Clinic Note Chief Complaint in office excision HPI Staff Presents for in office excisional biopsy nodule right wrist. History of Present Illness patient presents for excision of right wrist nodule, no change from recent evaluation. Review of Systems PHQ Score Initial Depression Screen Score: 0 SCORE ROS - Provider Constitutional: no fever, no sweats, no weight loss. Eyes: no glasses, no blurred vision, no visual loss. ENMT: no dentures, no hoarseness, no swallowing difficulties, no hearing loss, no ear infection(s), no nose bleeds. Cardiovascular: normal blood pressure, no chest pain, regular heartbeat, no heart murmur. Respiratory: no shortness of breath, no cough, no asthma, no wheezing. Gastrointestinal: no nausea, no vomiting, no diarrhea, no constipation, no blood in stool, no change in bowel habits, no abdominal pain, no hepatitis. Genitourinary: no kidney stones, no urine infection, no dysuria. Musculoskeletal: no pain, no weakness. Skin: no changing moles, no rash, yes skin lumps. Neurologic: no seizures, no epilepsy, no headache. Psychiatric: no emotional or psychiatric problem. Heme/Lymph: no bleeding problems, no anemia, no blood clots, no transfusions. Allergy/Immunologic : no swollen lymph nodes/glands, no IV drug abuse. Other: Additional ROS info: Except as noted in the above Review of Systems and in the History of Present Illness, all other systems have been reviewed and are negative or noncontributory. Physical Exam skin: 4 mm subcutaneous, mobile nodule volar aspect of right wrist, no skin changes. Procedure patient brought to the procedure room, placed in supine position, area prepped and draped in sterile fashion; anesthetized with 1 % lidocaine; lesion excised through incision over lesion, down to subcutaneous fat; incision 5 mm, deep tissue closed with 5-0 vicryl suture, skin closed with interrupted 4-0 nylon sutures; tolerated well; ebl < 3 ml; sterile dressing applied. Assessment/Plan 1. Subcutaneous nodule of right hand (R22.31: Localized swelling, mass and lump, right upper limb) excised under local anesthesia, tolerated well, consistent with inclusion cyst; ibuprofen as needed for pain; f/u in 10 days for suture removal, call sooner if problems/questions. Follow-up No qualifying data available Problem List/Past Medical History Ongoing Anxiety BPH (benign prostatic hyperplasia) Chronic cough Coronary arteriosclerosis Dysfunction of right cardiac ventricle Essential hypertension Fibromyalgia History of myocardial infarction Hyperlipidemia Intermittent claudication Intraventricular conduction defect Irritable bowel syndrome Left ventricular hypertrophy Lumbar radiculopathy Peripheral vascular disease Rheumatoid arthritis Sinus bradycardia Subcutaneous nodule of right hand Historical No qualifying data Procedure/Surgical History Arthroplasty of left knee, Arthroplasty of right knee, Bilateral carpal tunnel release, Cardiac catheterization, Cervical laminectomy, Coronary artery bypass, vein only; 2 coronary venous grafts, Excision of cyst, Graft of skin, ORIF - Open reduction and internal fixation of fracture, Rotator cuff repair. Medications acetaminophen-hydro codone 325 mg-5 mg oral tablet, 1 tab(s), Oral, QID, PRN aspirin 81 mg Oral EC Tab, 81 mg= 1 tab(s), Oral, Daily atorvastatin 40 mg Tab, 40 mg= 1 tab(s), Oral, Daily cetirizine 10 mg Tab, 10 mg= 1 tab(s), Oral, Daily metoprolol succinate 25 mg ER Tab, 12.5 mg= 0.5 tab(s), Oral, Daily nitroglycerin 0.4 mg sublingual Tab, 0.4 mg= 1 tab(s), SubLingual, q5min, PRN sildenafil 100 mg Tab, 100 mg= 1 tab(s), Oral, Daily traZODONE 100 mg Tab, 200 mg= 2 tab(s), Oral, Once a day (at bedtime) Allergies amoxicillin-clavula fernie (Nausea, Blurry Vision, Fluid Retention) Social History Alcohol - Denies Alcohol Use, 09/29/2024 Substance Abuse - Denies Substance Abuse, 09/29/2024 Tobacco Former smoker, quit more than 30 days ago Tobacco Use:. Former smokeless tobacco user, quit more than 30 days ago Smokeless Tobacco Use:. Cigarettes, Oral, 3 per day. Started age 12.0 Years. Stopped age 45 Years., 10/13/2024 Family History Heart disease: Mother, Father and Brother. Stroke: Father. Immunizations Vaccine Date Status Comments SARS-CoV-2 (COVID-19) mRNAMUL.ORD![id number] 09/20/2022 Recorded 2024-09-07: TPV70 SARS-CoV-2 (COVID-19) mRNA-1273 vaccine 02/01/2022 Recorded SARS-CoV-2 (COVID-19) mRNA-1273 vaccine 07/31/2021 Recorded 2024-09-07: TPV70 SARS-CoV-2 (COVID-19) mRNA-1273 vaccine 12/15/2020 Recorded 2024-09-07: TPV70 SARS-CoV-2 (COVID-19) mRNA-1273 vaccine 11/17/2020 Recorded 2024-09-07: TPV70 Normal [facility] Comment on above: Result Comment: Elec tronically Signed By: WILIAM CADET, Amadeo Mtz\.br\Date and Time Signed: 10/13/24 14:16 EST Ambulatory Visit Summaryon 0 09-29-2024 Ambulatory Visit Summary Ambulatory Visit Summary LEVON BOND Natalia :1950 Visit Date:09/29/2024 Ambulatory Visit Instructions Your Care Team Attending Physician - WILIAM CADET, Amadeo Mtz Primary Care Physician - Ruddy iYn MD This Is Your Medications List Contact prescribing physician if questions or concerns acetaminophen-hydro codone (acetaminophen-hydr ocodone 325 mg-5 mg oral tablet) aspirin (aspirin 81 mg Oral EC Tab) atorvastatin (atorvastatin 40 mg Tab) cetirizine (cetirizine 10 mg Tab) metoprolol (metoprolol succinate 25 mg ER Tab) nitroglycerin (nitroglycerin 0.4 mg sublingual Tab) sildenafil (sildenafil 100 mg Tab) trazodone (traZODONE 100 mg Tab) Procedures Performed Arthroplasty of left knee, Arthroplasty of right knee, Bilateral carpal tunnel release, Cardiac catheterization, Cervical laminectomy, Coronary artery bypass, vein only; 2 coronary venous grafts, Excision of cyst, Graft of skin, ORIF - Open reduction and internal fixation of fracture, Rotator cuff repair. Discharge Vitals Heart Rate (Peripheral) 72 Respiratory Rate 16 Blood Pressure 136/84 Height 172.72 cm Height 68 in Weight 72.7 kg Weight 160.276 lb BMI 24.37 What to do next Scheduled Follow-Up Appointments Saturday 2:00 PM EST With: WILIAM CADET, Amadeo Mtz Where: [facility] General Surgery [address], [address], [place] [address]- Medications What How Much When Instructions Unchanged acetaminophen-hydro codone (acetaminophen-hydr ocodone 325 mg-5 mg oral tablet) 1 Tablets By Mouth 4 times a day as needed for as needed for pain Contact prescribing physician if questions or concerns Unchanged aspirin (aspirin 81 mg Oral EC Tab) 1 Tablets By Mouth Every day Contact prescribing physician if questions or concerns Unchanged atorvastatin (atorvastatin 40 mg Tab) 1 Tablets By Mouth Every day Contact prescribing physician if questions or concerns Unchanged cetirizine (cetirizine 10 mg Tab) 1 Tablets By Mouth Every day Contact prescribing physician if questions or concerns Unchanged metoprolol (metoprolol succinate 25 mg ER Tab) 0.5 Tablets By Mouth Every day Contact prescribing physician if questions or concerns Unchanged nitroglycerin (nitroglycerin 0.4 mg sublingual Tab) 1 Tablets Sublingual Every 5 minutes as needed for for chest pain Contact prescribing physician if questions or concerns Unchanged sildenafil (sildenafil 100 mg Tab) 1 Tablets By Mouth Every day Contact prescribing physician if questions or concerns Unchanged trazodone (traZODONE 100 mg Tab) 2 Tablets By Mouth Once a day (at bedtime) Contact prescribing physician if questions or concerns Allergies amoxicillin-clavula fernie (Nausea, Blurry Vision, Fluid Retention) Problems Ongoing - Any problem that you are currently receiving treatment for. Anxiety BPH (benign prostatic hyperplasia) Chronic cough Coronary arteriosclerosis Dysfunction of right cardiac ventricle Essential hypertension Fibromyalgia History of myocardial infarction Hyperlipidemia Intermittent claudication Intraventricular conduction defect Irritable bowel syndrome Left ventricular hypertrophy Lumbar radiculopathy Peripheral vascular disease Rheumatoid arthritis Sinus bradycardia Patient Survey You may receive a survey via text or e-mail asking about your office visit. Please share your experience with us by completing your survey. We appreciate your feedback and thank you for choosing us for your care. Normal [facility] XR Knee - left 1 or 2 [...] dislocation. Impression: Unremarkable left total knee arthroplasty. [facility] [employer] XR Knee - left 1 or 2 ViewsO rdered By: Jr. Alas on 05-13-2024 [facility] Taodangpucar e Work Phone: XR Knee - left 1 or 2 Viewso n 05-06-2024 Radiology Study observation (narrative) [facility] HGB AND HCTon 11-21-2023 Hematocrit (Bld) [Volume fraction] 36.0 % Low 39-49 [facility] Comment on above: Performed By: #### H H #### [facility] ([id number]) [address] [place] [address] Hemoglobin (Bld) [Mass/Vol] 12.3 g/dL Low 13.0-17.0 [facility] Comment on above: Performed By: #### H H #### [facility] ([id number]) [address] [place] [address] HGB AND HCTon 11-20-2023 Hematocrit (Bld) [Volume fraction] 37.5 % Low 39-49 [facility] Comment on above: Performed By: #### H H #### [facility] ([id number]) [address] [place] [address] [place] [address] Hemoglobin (Bld) [Mass/Vol] 12.9 g/dL Low 13.0-17.0 [facility] Comment on above: Performed By: #### H H #### [facility] ([id number]) [address] [place] [address] HGB AND HCTon 11-19-2023 Hematocrit (Bld) [Volume fraction] 42.5 % Normal 39-49 [facility] Comment on above: Performed By: #### H H #### [facility] ([id number]) [address] [place] [address] Hemoglobin (Bld) [Mass/Vol] 14.3 g/dL Normal 13.0-17.0 [facility] Comment on above: Performed By: #### H H #### [facility] ([id number]) [address] [place] [address] XR KNEE LT 1 OR 2 VWSon 03- XR KNEE LT 1 OR 2 VWS XR KNEE LT 1 OR 2 VWS History: Postop follow-up. Pain Study: Left knee Two view study. Impression: Total knee arthroplasty has been performed. The femoral and tibial components are excellent position. No fracture. No acute hardware complication is seen. Skin elizabeth are noted. Follow-up is planned. 6 Finalized by Janette Fletcher MD on 11/19/2023 2:43 PM Normal [facility] XR BONE LENGTH STUDYon 11-10 XR BONE LENGTH STUDY XR BONE LENGTH STUDY CLINICAL INFORMATION:Coronar y artery disease involving sen[place] coronary artery of sen[place] heart without angina pectoris; Preop examination; Urinary [...] knee, with mild, 1 degree varus alignment. 9 Finalized by Mc Meraz MD on 11/10/2023 2:18 PM Normal [facility] Bacteria identified Cx Nom ( U)on 11-09-2023 Service comment (Unsp spec) [Interp] <10,000 ORGANISMS/ML NORMAL URO GENITAL BEST [facility] BASIC METABOLIC PANLon 11-08 Anion gap [Moles/Vol] 7 mmol/L Normal 5-15 [facility] Comment on above: Performed By: #### C BCA, BMP #### [facility] ([id number]) [address], [address] [place] [address] Calcium [Mass/Vol] 10.0 mg/dL Normal 8.5-10.5 [facility] Comment on above: Performed By: #### C BCA, BMP #### [facility] ([id number]) [address], [address] [place] [address] Chloride [Moles/Vol] 101 mmol/L Normal 98-109 [facility] Comment on above: Performed By: #### C BCA, BMP #### [facility] ([id number]) [address], [address] [place] [address] CO2 [Moles/Vol] 30 mmol/L Normal 22-32 [facility] Comment on above: Performed By: #### C BCA, BMP #### [facility] ([id number]) [address], [address] [place] [address] Creatinine [Mass/Vol] 0.92 mg/dL Normal 0.60-1.30 [facility] Comment on above: Result Comment: METH OD TRACEABLE TO IDMS STANDARD Performed By: #### C BCA, BMP #### [facility] ([id number]) [address], [address] [place] [address] GFR/1.73 sq M.predicted among non-blacks MDRD (S/P/Bld) [Vol rate/Area] 88 mL/min/{1.73_m2} Normal >59 [facility] Comment on above: Result Comment: Reported eGFR is based on the CKD-EPI 2020 equation that does not use a race coefficient. Performed By: #### C ALISTAIR, BMP #### [facility] ([id number]) [address], [address] [place] [address] Glucose [Mass/Vol] 94 mg/dL Normal 65-99 [facility] Comment on above: Performed By: #### C ALISTAIR, BMP #### [facility] ([id number]) [address] [place] [address] Potassium [Moles/Vol] 4.7 mmol/L Normal 3.5-5.0 [facility] Comment on above: Performed By: #### Natalia SAINZ, BMP #### [facility] ([id number]) [address], [address] [place] [address] Sodium [Moles/Vol] 138 mmol/L Normal 134-146 [facility] Comment on above: Performed By: #### Natalia SAINZ, BMP #### [facility] ([id number]) [address], [address] [place] [address] Urea nitrogen [Mass/Vol] 23 mg/dL Normal 5-27 [facility] Comment on above: Performed By: #### Natalia BCA, BMP #### [facility] ([id number]) [address], [address] [place] [address] Basic Metabolic Panelon 02-2 Anion gap [Moles/Vol] 7 mmol/L 5 - 15 mmol/L [facility] Calcium [Mass/Vol] 10.0 mg/dL 8.5 - 10. 5 mg/dL [facility] Chloride [Moles/Vol] 101 mmol/L 98 - 109 mmol/L [facility] CO2 [Moles/Vol] 30 mmol/L 22 - 32 mmol/L [facility] Creatinine [Mass/Vol] 0.92 mg/dL 0.60 - 1.30 mg/dL [facility] Comment on above: METHOD TRACEABLE TO IDMS STANDARD eGFR (CKD-EPI)non-race dependent 88 - PINF [facility] Comment on above: Reported eGFR is based on the CKD-EPI 2020 equation that does not use a race coefficient. Glucose [Mass/Vol] 94 mg/dL 65 - 99 mg/dL [facility] Potassium [Moles/Vol] 4.7 mmol/L 3.5 - 5.0 mmol/L [facility] Sodium [Moles/Vol] 138 mmol/L 134 - 146 mmol/L [facility] Urea nitrogen [Mass/Vol] 23 mg/dL 5 - 27 mg/dL [facility] CBC AND AUTO DIFFon 11-08-19 ABSOLUTE BASOPHIL 0.0 X10E9/L Normal 0.0-0.2 [facility] Comment on above: Performed By: #### Natalia SAINZ BMP #### [facility] ([id number]) [address], [address] [place] [address] ABSOLUTE NEUTROPHIL 6.9 X10E9/L High 1.5-6.6 [facility] Comment on above: Performed By: #### Natalia SAINZ, BMP #### [facility] ([id number]) [address], [address] [place] [address] Basophils/100 WBC (Bld) 0.4 % Normal [facility] Comment on above: Performed By: #### Natalia SAINZ, BMP #### [facility] ([id number]) [address], [address] [place] [address] Eosinophils (Bld) [#/Vol] 0.0 10*3/uL Normal 0.0-0.4 [facility] Comment on above: Performed By: #### Natalia SAINZ, BMP #### [facility] ([id number]) [address], [address] [place] [address] Eosinophils/100 WBC (Bld) 0.6 % Normal [facility] Comment on above: Performed By: #### C BCA, BMP #### [facility] ([id number]) [address], [address] [place] [address] Erythrocyte distribution width (RBC) [Ratio] 13.3 % Normal 11.5-15.0 [facility] Comment on above: Performed By: #### C BCA, BMP #### [facility] ([id number]) [address], [address] [place] [address] Hematocrit (Bld) [Volume fraction] 45.3 % Normal 39-49 [facility] Comment on above: Performed By: #### C ALISTAIR, BMP #### [facility] ([id number]) [address], [address] [place] [address] Hemoglobin (Bld) [Mass/Vol] 15.3 g/dL Normal 13.0-17.0 [facility] Comment on above: Performed By: #### C BCA, BMP #### [facility] ([id number]) [address], [address] [place] [address] Lymphocytes (Bld) [#/Vol] 1.1 10*3/uL Normal 1.0-3.5 [facility] Comment on above: Performed By: #### C BCA, BMP #### [facility] ([id number]) [address], [address] [place] [address] Lymphocytes/100 WBC (Bld) 12.3 % Normal [facility] Comment on above: Performed By: #### C BCA, BMP #### [facility] ([id number]) [address], [address] [place] [address] MCH (RBC) [Entitic mass] 32.3 pg Normal 27-34 [facility] Comment on above: Performed By: #### C BCA, BMP #### [facility] ([id number]) [address], [address] [place] [address] MCHC (RBC) [Mass/Vol] 33.7 g/dL Normal 32-36 [facility] Comment on above: Performed By: #### Natalia SAINZ, BMP #### [facility] ([id number]) [address], [address] [place] [address] MCV (RBC) [Entitic vol] 96 fL Normal 80-100 [facility] Comment on above: Performed By: #### Natalia SAINZ, BMP #### [facility] ([id number]) [address] [facility] [address] [place] [address] Monocytes (Bld) [#/Vol] 0.8 10*3/uL Normal 0-0.9 [facility] Comment on above: Performed By: #### Natalia SAINZ, BMP #### [facility] ([id number]) [address] [place] [address] Monocytes/100 WBC (Bld) 9.0 % Normal [facility] Comment on above: Performed By: #### Natalia SAINZ, BMP #### [facility] ([id number]) [address] [place] [address] Neutrophils/100 WBC (Bld) 77.7 % Normal [facility] Comment on above: Performed By: #### Natalia SAINZ, BMP #### [facility] ([id number]) [address] [place] [address] Platelet mean volume (Bld) [Entitic vol] 8.9 fL Normal 7-12 [facility] Comment on above: Performed By: #### C ALISTAIR, BMP #### [facility] ([id number]) [address], [address] [place] [address] Platelets (Bld) [#/Vol] 257 10*3/uL Normal 150-450 [facility] Comment on above: Performed By: #### Natalia SAINZ, BMP #### [facility] ([id number]) [address] [place] [address] RBC COUNT 4.73 X10E12/L Normal 4.10-5.70 [facility] Comment on above: Performed By: #### C BCA, BMP #### [facility] ([id number]) [address], [address] [place] [address] WBC (Bld) [#/Vol] 8.9 10*3/uL Normal 4.0-11.0 [facility] Comment on above: Performed By: #### C BCA, BMP #### [facility] ([id number]) [address], [address] [place] [address] CBC auto differentialon 10-18 Basophils (Bld) [#/Vol] 0.0 10*3/uL [facility] Basophils/100 WBC (Bld) 0.4 % [facility] Eosinophils (Bld) [#/Vol] 0.0 10*3/uL [facility] Eosinophils/100 WBC (Bld) 0.6 % [facility] Erythrocyte distribution width (RBC) [Ratio] 13.3 % 11.5 - 15.0 % [facility] Hematocrit (Bld) [Volume fraction] 45.3 % 39 - 49 % [facility] Hemoglobin (Bld) [Mass/Vol] 15.3 g/dL 13.0 - 17.0 g/dL [facility] Interpretation and review of laboratory results Abnormal [facility] Lymphocytes (Bld) [#/Vol] 1.1 10*3/uL [facility] Lymphocytes/100 WBC (Bld) 12.3 % [facility] MCH (RBC) [Entitic mass] 32.3 pg 27 - 34 pg [facility] MCHC (RBC) [Mass/Vol] 33.7 g/dL 32 - 36 g/dL [facility] MCV (RBC) [Entitic vol] 96 fL 80 - 100 fL [facility] Monocytes (Bld) [#/Vol] 0.8 10*3/uL [facility] Monocytes/100 WBC (Bld) 9.0 % [facility] Neutrophils (Bld) [#/Vol] 6.9 10*3/uL High [facility] Neutrophils/100 WBC (Bld) 77.7 % [facility] Platelet mean volume (Bld) [Entitic vol] 8.9 fL 7 - 12 fL [facility] Platelets (Bld) [#/Vol] 257 10*3/uL [facility] RBC (Bld) [#/Vol] 4.73 10*6/uL [facility] WBC corrected for nucl RBC Auto (Bld) [#/Vol] 8.9 [facility] ECG 12 leadon 11-08-2023 TRACEMASTERVUE [facility] Type and screen(includes ind irect wanda)on 11-08-2023 ABO O [facility] Rh Nom (Bld) Positive [facility] URINALYSISon 11-08-2023 Bilirubin Ql (U) Negative Normal NEG [facility] BLOOD/HGB Negative Normal NEG [facility] Color (U) YELLOW Normal YELLOW [facility] Glucose Ql (U) Negative Normal NEG [facility] Ketones Ql (U) Negative Normal NEG [facility] Leukocyte esterase Test strip Ql (U) Negative Normal NEG [facility] Nitrite Ql (U) Negative Normal NEG [facility] pH (U) 6.0 [pH] Normal 5.0-8.5 [facility] Protein Ql (U) Negative Normal NEG [facility] Specific gravity (U) [Rel density] 1.010 Normal 1.003-1.035 [facility] TURBIDITY CLEAR Normal CLEAR [facility] Urobilinogen (U) [Mass/Vol] mg/dL Normal <1.1 [facility] URINE CULTUREon 11-08-2023 Bacteria identified Cx Nom (U) CULTURE RESULTS <10,000 ORGANISMS/ML NORMAL URO GENITAL BEST Normal [facility] Comment on above: Performed By: #### 6 30-4 #### [facility] ([id number]) [address] [place] [address] Urinalysison 11-08-2023 Bilirubin Ql (U) Negative Negative^Ne gat karmen [facility] Color (U) YELLOW YELLOW^YELLOW [facility] Glucose (U) [Mass/Vol] Negative Negative^Negat karmen mg/dL [facility] Hemoglobin Auto test strip Ql (U) Negative Negative^Negat karmen [facility] Ketones (U) [Mass/Vol] Negative Negative^Negat karmen mg/dL [facility] Leukocyte esterase Auto test strip Ql (U) Negative Negative^Negat karmen [facility] Nitrite Auto test strip Ql (U) Negative Negative^Negat karmen [facility] pH (U) 6.0 [pH] 5.0 - 8.5 [facility] Protein (U) [Mass/Vol] Negative Negative^Negat karmen mg/dL [facility] Specific gravity Refractometry automated (U) [Rel density] 1.010 1.003 - 1.035 [facility] Turbidity Ql (U) CLEAR CLEAR^CLEAR [facility] Urobilinogen Qn (U) NINF [facility] XR Knee - left 1 or 2 Viewso n 10-23-2023 Imaging Result: AP and lateral views of left knee showed severe varus deformity with [id number] articulation to the medial joint line, flattening of the articular surfaces to the medial joint line lateral joint line and patellofemoral joint. Subchondral sclerosis was noted at the medial joint line surfaces as well as the lateral joint line and patellofemoral joint. Marginal osteophytic formation was noted tricompartmentally. There is no evidence of fracture or dislocation. Impression: severe degenerative joint disease left [facility] with [facility]us deformity [facility] (narrative) [facility] MRI KNEE LT WO CONon 023 [...] VALERIE CHRISTY Date: 2022-11-27 08:55 Normal [facility] OCC BLD IMMUNO SCREENon 03-0 OCCULT BLOOD Negative Normal NEGATIVE [facility] Comment on above: Performed By: #### O BSCRN #### [facility] [address] [address] [address] Ankit Peters INSULINon 11-15-2022 Insulin 12.6 uIU/mL Normal 2.6-24.9 [facility] Comment on above: Performed By: #### I NSULIN ####[facility] [address] [address]Dr. Ankit Peters CBC AUTO DIFFon 11-14-2022 BASO # 0.0 103/ul Normal 0.0-0.1 [facility] Comment on above: Performed By: #### C BC ####[facility] [address] [address]Dr. Ankit Peters Basophils/100 WBC (Bld) 0.5 % Normal 0.2-2.0 [facility] Comment on above: Performed By: #### C BC ####[facility] [address] [address]Dr. Ankit Peters EO # 0.1 103/ul Normal 0.0-0.7 [facility] Comment on above: Performed By: #### C BC ####[facility] [address] [place], [place] [address]Dr. Ankit Peters Eosinophils/100 WBC (Bld) 2.0 % Normal 0.9-7.0 [facility] Comment on above: Performed By: #### C BC ####[facility] [address] [place], [place] [address]Dr. Ankit Peters Erythrocyte distribution width (RBC) [Ratio] 12.6 % Normal 11.0-15.0 [facility] Comment on above: Performed By: #### C BC ####[facility] [address] [place], [place] [address]Dr. Ankit Peters Hematocrit (Bld) [Volume fraction] 46.6 % Normal 42.0-54.0 [facility] Comment on above: Performed By: #### C BC ####[facility] [address] [place], [place] [address]Dr. Ankit Peters Hemoglobin (Bld) [Mass/Vol] 15.3 g/dL Normal 14.0-18.0 [facility] Comment on above: Performed By: #### C BC ####[facility] [address] [place], [place] [address]Dr. Ankit Peters IG # 0.02 10e3/ul Normal 0.00-0.03 [facility] Comment on above: Performed By: #### C BC ####[facility] [address] [place], [place] [address]Dr. Ankit Peters IG % 0.3 % Normal 0.0-0.5 [facility] Comment on above: Performed By: #### C BC ####[facility] [address] [place], [place] [address]Dr. Yolandaradha Peters LYMPH # 1.4 103/ul Normal 1.2-3.8 [facility] Comment on above: Performed By: #### C BC ####[facility] [address] [id number][address] Ankit Fran Lymphocytes/100 WBC (Bld) 21.5 % Normal 20.5-60.0 The [facility] Comment on above: Performed By: #### C BC ####[facility] [address] [address]Dr. Yolandaradha Peters MANUAL DIFF REQ NO Normal The [facility] Comment on above: Performed By: #### C BC ####[facility] [address] [address]Dr. Yolandaradha Peters MCH (RBC) [Entitic mass] 31.6 pg Normal 25.9-34.0 [facility] Comment on above: Performed By: #### C BC ####[facility] [address] [place], [place] [address]Dr. Yolandaradha Peters MCHC (RBC) [Mass/Vol] 32.8 g/dL Normal 29.9-35.2 [facility] Comment on above: Performed By: #### C BC ####[facility] [address] [address]Dr. Yolandaradha Peters MCV (RBC) [Entitic vol] 96.3 fL Critically high 80.0-94.0 [facility] Comment on above: Performed By: #### C BC ####[facility] [address] [place], [place] [address]Dr. Ankit Peters MONO # 0.6 103/ul Normal 0.3-0.8 [facility] Comment on above: Performed By: #### C BC ####[facility] [address] [address]Dr. Ankit Peters Monocytes/100 WBC (Bld) 9.3 % Normal 1.7-12.0 [facility] Comment on above: Performed By: #### C BC ####[facility] [address] [place], [place] [address]Dr. Ankit Peters NEUT # 4.4 103/ul Normal 1.4-6.5 [facility] Comment on above: Performed By: #### C BC ####[facility] [address] [id number]. Ankit Peters Neutrophils/100 WBC (Bld) 66.4 % Normal 43.0-75.0 [facility] Comment on above: Performed By: #### C BC ####[facility] [address] [phone]. Ankit Peters Platelet mean volume (Bld) [Entitic vol] 9.5 fL Normal 9.5-13.5 [facility] Comment on above: Performed By: #### C BC ####[facility] [address] [phone]. Ankit Peters PLT 234 103/ul Normal 150-450 [facility] Comment on above: Performed By: #### C BC ####[facility] [address] [phone]. Ankit Peters RBC 4.84 106/ul Normal 4.70-6.10 [facility] Comment on above: Performed By: #### C BC ####[facility] [address] [phone]. Ankit Peters WBC 6.6 103/ul Normal 4.0-11.0 [facility] Comment on above: Performed By: #### C BC ####[facility] [address] [id number] Peters FREE THYROXINE INDEX T7on FTI 2.82 Normal 1.30-4.50 [facility] Comment on above: Performed By: #### L IPID, URIC, CMP, TSH, T7 #### [facility] [address] [address] [address] Ankit Peters T3U 34.0 % Normal 33.0-40.0 [facility] Comment on above: Performed By: #### L IPID, URIC, CMP, TSH, T7 #### [facility] [id number] Ankit Peters T4 [Mass/Vol] 8.30 ug/dL Normal 4.50-12.10 The [facility] Comment on above: Performed By: #### L IPID, URIC, CMP, TSH, T7 #### [facility] [id number] Ankit Peters GLYCOHEMOGLOBIN A1Con 2022 ADA RECOMMENDATION SEE BELOW Normal [facility] Comment on above: Result Comment: ADA RECOMMENDED LIMIT 4.0 - 6.0 ADA THERAPEUTIC TARGET < 7.0 ACTION SUGGESTED > 7.0 Performed By: #### A 1C #### [facility] [address] [place] [address] Dr. Ankit Peters Glucose [Mass/Vol] 105 mg/dL Normal [facility] Comment on above: Performed By: #### A 1C #### [facility] [address] [place] [address] Dr. Ankit Peters HbA1c (Bld) [Mass fraction] 5.3 % Normal 4.5-6.2 [facility] Comment on above: Performed By: #### A 1C #### [facility] [address] [place] [address] Dr. Ankit Peters LIPID PROFILEon 11-14-2022 CHOL-HDL RATIO NORM SEE BELOW Normal [facility] Comment on above: Result Comment: 3.3 - 4.4 LOW RISK 4.4 - 7.1 AVERAGE RISK 7.1 - 11.0 MODERATE RISK >11.0 HIGH RISK Performed By: #### L IPID, URIC, CMP, TSH, T7 #### [facility] [address] [place] [address] Dr. Ankit Peters Cholesterol [Mass/Vol] 154 mg/dL Normal <=200 [facility] Comment on above: Performed By: #### L IPID, URIC, CMP, TSH, T7 #### [facility] [address] [address] [address] Ankit Peters Cholesterol in HDL [Mass/Vol] 55 mg/dL Normal 40-60 [facility] Comment on above: Performed By: #### L IPID, URIC, CMP, TSH, T7 #### [facility] [address] [place] [address] Dr. Ankit Peters Cholesterol in LDL [Mass/Vol] 84.2 mg/dL Normal [facility] Comment on above: Performed By: #### L IPID, URIC, CMP, TSH, T7 #### [facility] [address] [address] [address] Ankit Peters Cholesterol.total/C holesterol in HDL [Mass ratio] 2.8 {ratio} Normal [facility] Comment on above: Performed By: #### L IPID, URIC, CMP, TSH, T7 #### [facility] [address] [address] [address] Ankit Peters HDL NORMAL > or = 60 mg/dl - LOW CARDIOVASCULAR RISK <40 mg/dl - HIGH CARDIOVASCULAR RISK Normal [facility] Comment on above: Performed By: #### L IPID, URIC, CMP, TSH, T7 #### [facility] [address] [address] [address] Ankit Peters LDL CALC NORMAL SEE BELOW Normal [facility] Comment on above: Result Comment: <100 mg/dl OPTIMAL 100 - 129 mg/dl NEAR OR ABOVE OPTIMAL 130 - 159 mg/dl BORDERLINE HIGH 160 - 189 mg/dl HIGH >190 mg/dl VERY HIGH Performed By: #### L IPID, URIC, CMP, TSH, T7 #### [facility] [address] [address] [address] Ankit Peters Triglyceride [Mass/Vol] 74 mg/dL Normal <=150 [facility] Comment on above: Performed By: #### L IPID, URIC, CMP, TSH, T7 #### [facility] [address] [address] [address] Ankit Peters VLDL CALC 14.8 mg/dL Normal [facility] Comment on above: Performed By: #### L IPID, URIC, CMP, TSH, T7 #### [facility] [address] [address] [address] Ankit Peters PROF 14(COMP METB)on 023 Albumin [Mass/Vol] 4.1 g/dL Normal 3.4-5.0 [facility] Comment on above: Performed By: #### L IPID, URIC, CMP, TSH, T7 #### [facility] [address] [address] [address] Ankit Peters Albumin/Globulin [Mass ratio] 1.2 {ratio} Normal [facility] Comment on above: Performed By: #### L IPID, URIC, CMP, TSH, T7 #### [facility] [address] [address] [address] Ankit Peters ALP [Catalytic activity/Vol] 65 U/L Normal 46-116 [facility] Comment on above: Performed By: #### L IPID, URIC, CMP, TSH, T7 #### [facility] [address] [place] [address] Dr. Ankit Peters ALT [Catalytic activity/Vol] 36 U/L Normal 16-63 [facility] Comment on above: Performed By: #### L IPID, URIC, CMP, TSH, T7 #### [facility] [address] [place] [address] Dr. Ankit Peters Anion gap [Moles/Vol] 9.1 mmol/L Normal [facility] Comment on above: Performed By: #### L IPID, URIC, CMP, TSH, T7 #### [facility] [address] [place] [address] Dr. Ankit Peters AST [Catalytic activity/Vol] 29 U/L Normal 15-37 [facility] Comment on above: Performed By: #### L IPID, URIC, CMP, TSH, T7 #### [facility] [address] [place] [address] Dr. Ankit Peters Bilirubin [Mass/Vol] 0.6 mg/dL Normal 0.2-1.0 [facility] Comment on above: Performed By: #### L IPID, URIC, CMP, TSH, T7 #### [facility] [address] [address] [address] Ankit Peters Calcium [Mass/Vol] 9.4 mg/dL Normal 8.5-10.1 [facility] Comment on above: Performed By: #### L IPID, URIC, CMP, TSH, T7 #### [facility] [address] [address] [address] Ankit Peters Chloride [Moles/Vol] 104 mmol/L Normal 98-107 [facility] Comment on above: Performed By: #### L IPID, URIC, CMP, TSH, T7 #### [facility] [address] [place] [address] Dr. Ankit Peters CO2 [Moles/Vol] 30.2 mmol/L Normal 21.0-32.0 [facility] Comment on above: Performed By: #### L IPID, URIC, CMP, TSH, T7 #### [facility] [address] [place] [address] Dr. Ankit Peters Creatinine [Mass/Vol] 0.90 mg/dL Normal 0.70-1.30 [facility] Comment on above: Performed By: #### L IPID, URIC, CMP, TSH, T7 #### [facility] [address] [place] [address] Dr. Ankit Peters EGFR-AF GAMBIAN >60 Normal >=60 [facility] Comment on above: Performed By: #### L IPID, URIC, CMP, TSH, T7 #### [facility] [address] [place] [address] Dr. Ankit Peters EGFR-NON AF GAMBIAN >60 Normal >=60 [facility] Comment on above: Performed By: #### L IPID, URIC, CMP, TSH, T7 #### [facility] [address] [place] [address] Dr. Ankit Peters Globulin (S) [Mass/Vol] 3.4 g/dL Normal [facility] Comment on above: Performed By: #### L IPID, URIC, CMP, TSH, T7 #### [facility] [address] [place] [address] Dr. Ankit Peters Glucose [Mass/Vol] 97 mg/dL Normal 74-106 [facility] Comment on above: Performed By: #### L IPID, URIC, CMP, TSH, T7 #### [facility] [address] [place] [address] Dr. Ankit Peters Potassium [Moles/Vol] 4.3 mmol/L Normal 3.5-5.1 [facility] Comment on above: Performed By: #### L IPID, URIC, CMP, TSH, T7 #### [facility] [address] [place] [address] Dr. Ankit Peters Protein [Mass/Vol] 7.5 g/dL Normal 6.4-8.2 [facility] Comment on above: Performed By: #### L IPID, URIC, CMP, TSH, T7 #### [facility] [address] [place] [address] Dr. Ankit Peters Sodium [Moles/Vol] 139 mmol/L Normal 136-145 [facility] Comment on above: Performed By: #### L IPID, URIC, CMP, TSH, T7 #### [facility] [address] [place] [address] Dr. Ankit Peters Urea nitrogen [Mass/Vol] 17.0 mg/dL Normal 7.0-18.0 [facility] Comment on above: Performed By: #### L IPID, URIC, CMP, TSH, T7 #### [facility] [address] [place] [address] Dr. Ankit Peters Urea nitrogen/Creatinine [Mass ratio] 18.9 mg/mg Normal [facility] Comment on above: Performed By: #### L IPID, URIC, CMP, TSH, T7 #### [facility] [address] [place] [address] Dr. Ankit Peters TSHon 11-14-2022 TSH 3.285 uIU/mL Normal 0.358-3.740 The [facility] Comment on above: Performed By: #### L IPID, URIC, CMP, TSH, T7 #### [facility] [address] [place] [address] Dr. Ankit Peters URIC ACID SERUMon 11-14-2022 Urate [Mass/Vol] 4.8 mg/dL Normal 3.5-7.2 [facility] Comment on above: Performed By: #### L IPID, URIC, CMP, TSH, T7 #### [facility] [address] [place] [address] Dr. Ankit Peters VITAMIN D 25 OHon 11-14-2022 VIT D 25-OH 41.4 ng/mL Normal [facility] Comment on above: Performed By: #### V ITAD, PSASC ####[facility] [address] [place], [place] [address]Ji. Ankit Peters VIT D RANGES SEE BELOW Normal [facility] Comment on above: Result Comment: <20 ng/mL Vit D deficient 20 - <30 ng/mL Vit D insufficient 30 - 100 ng/mL Vit D sufficient >100 ng/mL Potential Toxicity Performed By: #### V ITAD, PSASC ####[facility] [address] [place], [place] [address]Lk. Ankit Peters Covid-19 PCR (CVDTB)on 08-17 SARS-CoV-2 (COVID-19) RNA KANDICE+probe Ql (Unsp spec) Not detected Normal NOT DETECTED [facility] Comment on above: Result Comment: This test is not yet approved or cleared by the [place] FDA. When there are no FDA-approved or cleared tests available, and other criteria are met, FDA can make tests available under an emergency access mechanism called an Emergency Use Authorization (EUA). The EUA for this test is supported by the [place] of Health and Human Service's (HHS's) declaration [...] with SARS-CoV-2. Performed By: #### C VDTBH ####[facility] [address] [place] [id number]. Ankit Peters INFLUENZA A AND B AGon 09-11 INFLUANEGH SEE BELOW Normal [facility] Comment on above: Result Comment: Nega tive for Flu A protein angiten. Infection due to Flu A cannot be ruled out. Flu A angiten in the sample may be below the detection limit of the test. Performed By: #### I NFLUAB ####[facility] [address] [place] [phone]. Ankit Peters INFLUBNEGH SEE BELOW Normal [facility] Comment on above: Result Comment: Nega tive for Flu B protein antigen. Infection due to Flu B cannot be ruled out. Flu B antigen in the sample may be below the detection limit of the test. Performed By: #### I NFLUAB ####[facility] [address] [address]Dr. Ankit Peters INFLUENZA A AG Negative Normal NEGATIVE SEE COMMENT [facility] Comment on above: Performed By: #### I NFLUAB ####[facility] [address] [address]Dr. Ankit Peters INFLUENZA B AG Negative Normal NEGATIVE SEE COMMENT [facility] Comment on above: Performed By: #### I NFLUAB ####[facility] [address] [place], [place] [address]Dr. Ankit Peters INTERNAL CONTROLS Within Normal Limits Normal Within Normal Limits [facility] Comment on above: Performed By: #### I NFLUAB ####[facility] [address] [place], [place] [address]Dr. Ankit Peters Basic Metabolic Panelon Anion gap [Moles/Vol] 7 mmol/L Low 9 - 17 mmol/L [place] Bun/Cre Ratio 17 [place], [place] Calcium [Mass/Vol] 9.1 mg/dL 8.6 - 10. 4 mg/dL [place] Chloride [Moles/Vol] 99 mmol/L 98 - 107 mmol/L [place] CO2 [Moles/Vol] 29 mmol/L 20 - 31 mmol/L [place] Creatinine [Mass/Vol] 0.82 mg/dL 0.7 - 1.2 mg/dL [place] GFR >60 >60 mL/min [place] GFR Non- >60 >60 mL/min [place] GFR/1.73 sq M predicted among non-blacks MDRD (S/P/Bld) [Vol rate/Area] [place] Comment on above: Average GFR for 70 o r more years old: 75 mL/min/1.73sq m Chronic Kidney Disease: <60 mL/min/1.73sq m Kidney failure: <15 mL/min/1.73sq m eGFR calculated using average adult body mass. Additional eGFR calculator available at: http://www.[employer].com/multiple_crcl_2011.htm GFR/1.73 sq M predicted among non-blacks MDRD (S/P/Bld) [Vol rate/Area] NOT REPORTED [place] Glucose [Mass/Vol] 112 mg/dL High 70 - 99 mg/dL [place], [place] Interpretation and review of laboratory results Abnormal [place] Potassium [Moles/Vol] 4.0 mmol/L 3.7 - 5.3 mmol/L [place] Sodium [Moles/Vol] 135 mmol/L 135 - 144 mmol/L [place] Urea nitrogen [Mass/Vol] 14 mg/dL 8 - 23 mg/dL [place] Basic Metabolic Profon 09-22 (cont.) Normal [facility] Comment on above: Result Comment: Aver age GFR for 70 or more years old: 75 mL/min/1.73sq m Chronic Kidney Disease: <60 mL/min/1.73sq m Kidney failure: <15 mL/min/1.73sq m eGFR calculated using average adult body mass. Additional eGFR calculator available at: http://www.[employer].com/multiple_crcl_2011.htm Performed By: #### B HARI, CDP #### [facility] [address] [place] [address] Leak Hunter: Jeremías Donald MD Anion gap [Moles/Vol] 7 mmol/L Low - [facility] Comment on above: Performed By: #### B HARI, CDP #### [facility] [address] [place] [place] [address] Leak Hunter: Jeremías Donald MD BUN/CRE Ratio 17 Normal 9-20 [facility] Comment on above: Performed By: #### B MP, CDP #### [facility] [address] [place] [address] Leak Hunter: Jeremías Donald MD Calcium [Mass/Vol] 9.1 mg/dL Normal 8.6-10.4 [facility] Comment on above: Performed By: #### B MP, CDP #### [facility] [address] [place] [address] Leak Hunter: Jeremías Donald MD Chloride [Moles/Vol] 99 mmol/L Normal 98-107 [facility] Comment on above: Performed By: #### B MP, CDP #### [facility] [address] [facility] [place] [address] Leak Hunter: Jeremías Donald MD CO2 [Moles/Vol] 29 mmol/L Normal 20-31 [facility] Comment on above: Performed By: #### B MP, CDP #### [facility] [address] [facility] [place] [address] Leak Hunter: Jeremías Donald MD Creatinine [Mass/Vol] 0.82 mg/dL Normal 0.70-1.20 [facility] Comment on above: Performed By: #### B MP, CDP #### [facility] [address] [place] [address] Leak Hunter: Jeremías Donald MD GFR, Amer >60 Normal >60 [facility] Comment on above: Performed By: #### B MP, CDP #### [facility] [address] [place] [address] Leak Hunter: Jeremías Donald MD GFR,non Amer >60 Normal >60 [facility] Comment on above: Performed By: #### B HARI, CDP #### [facility] [address] [place] [address] Leak Hunter: Jeremías Donald MD Glucose [Mass/Vol] 112 mg/dL High 70-99 [facility] Comment on above: Performed By: #### B HARI, CDP #### [facility] [address] [place] [address] Leak Hunter: Jeremías Donald MD Potassium [Moles/Vol] 4.0 mmol/L Normal 3.7-5.3 [facility] Comment on above: Performed By: #### B HARI, CDP #### [facility] [place] [address] Leak Hunter: Jeremías Donald MD Sodium [Moles/Vol] 135 mmol/L Normal 135-144 [facility] Comment on above: Performed By: #### Anyi NORIEGA, CDP #### [facility] [address] [place] [address] Leak Hunter: Jeremías Donald MD Urea nitrogen [Mass/Vol] 14 mg/dL Normal 8-23 [facility] Comment on above: Performed By: #### B HARI, CDP #### [facility] [address] [place] [address] Leak Hunter: Jeremías Donald MD Staging: NOT REPORTED Normal [facility] Comment on above: Performed By: #### B HARI, CDP #### [facility] [address] [place] [address] Leak Hunter: Jeremías Donald MD CBC Auto Differentialon Basophils (Bld) [#/Vol] 0.03 10*3/uL [facility] [place] Basophils/100 WBC (Bld) 0 % 0 - 2 % [place] Differential Type NOT REPORTED [place] Eosinophils (Bld) [#/Vol] 0.10 10*3/uL [place] Eosinophils/100 WBC (Bld) 1 % 1 - 4 % [place] Erythrocyte distribution width (RBC) [Ratio] 12.0 % 11.8 - 14.4 % [place] Hematocrit (Bld) [Volume fraction] 39.6 % Low 40.7 - 50.3 % [place] Hemoglobin (Bld) [Mass/Vol] 12.8 g/dL Low 13 - 17 g/dL [place] Immature granulocytes (Bld) [#/Vol] 0.03 10*3/uL [place] Immature granulocytes (Bld) [#/Vol] 0 % 0 [place] Interpretation and review of laboratory results Abnormal [place] Lymphocytes (Bld) [#/Vol] 0.92 10*3/uL Low [place] Lymphocytes/100 WBC (Bld) 8 % Low 24 - 43 % [place] MCH (RBC) [Entitic mass] 32.1 pg 25.2 - 33.5 pg [place] MCHC (RBC) [Mass/Vol] 32.3 g/dL 28.4 - 34.8 g/dL [place] MCV (RBC) [Entitic vol] 99.2 fL 82.6 - 102.9 fL [place] Monocytes (Bld) [#/Vol] 1.26 10*3/uL High [place] Monocytes/100 WBC (Bld) 11 % 3 - 12 % [place] Platelet mean volume (Bld) [Entitic vol] 10.0 fL 8.1 - 13.5 fL [place] Platelets (Bld) [#/Vol] NOT REPORTED [place] Platelets (Bld) [#/Vol] 203 10*3/uL [place] RBC (Bld) [#/Vol] 3.99 10*6/uL Low 4.21 - 5.7 7 m/uL [place] RBC morphology finding Nom (Bld) NOT REPORTED [place] Segmented neutrophils/100 WBC (Bld) 80 % High 36 - 65 % [place] Segs Absolute 8.94 High [place] WBC (Bld) [#/Vol] 11.3 10*3/uL [place] WBC (Bld) [#/Vol] 0.0 10*3/uL 0.0 per 10 0 WBC [place] WBC Morphology NOT REPORTED [place], [place] CBC with Diffon 09-22-2020 Abs. Basophil 0.03 k/uL Normal 0.00-0.20 [facility] Comment on above: Performed By: #### B HARI, CDP #### [facility] [address] [place] [address] Leak Hunter: Jeremías Donald MD Abs.Imm.Granulocyte 0.03 k/uL Normal 0.00-0.30 [facility] Comment on above: Performed By: #### Anyi NORIEGA, CDP #### [facility] [place] [address] Leak Hunter: Jeremías Donald MD Abs.Neutrophil (Seg) 8.94 k/uL High 1.50-8.10 [facility] Comment on above: Performed By: #### B HARI, CDP #### [facility] [place] [address] Leak Hunter: Jeremías Donald MD Basophils/100 WBC (Bld) 0 % Normal 0-2 [facility] Comment on above: Performed By: #### B HARI, CDP #### [facility] [place] [address] Leak Hunter: Jeremías Donald MD Eosinophils (Bld) [#/Vol] 0.10 10*3/uL Normal 0.00-0.44 [facility] Comment on above: Performed By: #### B HARI, CDP #### [facility] [place] [address] Leak Hunter: Jeremías Donald MD Eosinophils/100 WBC (Bld) 1 % Normal 1-4 [facility] Comment on above: Performed By: #### B HARI, CDP #### [facility] [address] [place] [address] Leak Hunter: Jeremías Donald MD Erythrocyte distribution width (RBC) [Ratio] 12.0 % Normal 11.8-14.4 [facility] Comment on above: Performed By: #### B HARI, CDP #### [facility] [address] [place] [address] Leak Hunter: Jeremías Donald MD Hematocrit (Bld) [Volume fraction] 39.6 % Low 40.7-50.3 [facility] Comment on above: Performed By: #### B HARI, CDP #### [facility] [address] [place] [address] Leak Hunter: Jeremías Donald MD Hemoglobin (Bld) [Mass/Vol] 12.8 g/dL Low 13.0-17.0 [facility] Comment on above: Performed By: #### B HARI, CDP #### [facility] [place] [address] Leak Hunter: Jeremías Donald MD Immature granulocytes (Bld) [#/Vol] 0 % Normal 0 [facility] Comment on above: Performed By: #### B HARI, CDP #### [facility] [address] [place] [address]. [place] [address] Leak Hunter: Jeremías Donald MD Lymphocytes (Bld) [#/Vol] 0.92 10*3/uL Low 1.10-3.70 [facility] Comment on above: Performed By: #### B MP, CDP #### [facility] [address] [facility] [place] [address] Leak Hunter: Jeremías Donald MD Lymphocytes/100 WBC (Bld) 8 % Low 24-43 [facility] Comment on above: Performed By: #### B MP, CDP #### [facility] [address] [facility] [place] [address] Leak Hunter: Jeremías Donald MD MCH (RBC) [Entitic mass] 32.1 pg Normal 25.2-33.5 [facility] Comment on above: Performed By: #### B MP, CDP #### [facility] [address] [place] [address]. [place] [address] Leak Hunter: Jeremías Donald MD MCHC (RBC) [Mass/Vol] 32.3 g/dL Normal 28.4-34.8 [facility] Comment on above: Performed By: #### B MP, CDP #### [facility] [place] [address] Leak Hunter: Jeremías Donald MD MCV (RBC) [Entitic vol] 99.2 fL Normal 82.6-102.9 [facility] Comment on above: Performed By: #### B MP, CDP #### [facility] [place] [address] Leak Hunter: Jeremías Donald MD Monocytes (Bld) [#/Vol] 1.26 10*3/uL High 0.10-1.20 [facility] Comment on above: Performed By: #### B MP, CDP #### [facility] [place] [address] Leak Hunter: Jeremías Donald MD Monocytes/100 WBC (Bld) 11 % Normal 3-12 [facility] Comment on above: Performed By: #### B MP, CDP #### [facility] [address] [place] [address] Leak Hunter: Jeremías Donald MD Neutrophil (Seg) 80 % High 36-65 [facility] Comment on above: Performed By: #### B MP, CDP #### [facility] [address] [place] [address] Leak Hunter: Jeremías Donald MD NRBC Automated 0.0 per 100 WBC Normal 0.0 [facility] Comment on above: Performed By: #### B MP, CDP #### [facility] [address] [place] [address] Leak Hunter: Jeremías Donald MD Platelet mean volume (Bld) [Entitic vol] 10.0 fL Normal 8.1-13.5 [facility] Comment on above: Performed By: #### B MP, CDP #### [facility] [address] [place] [address] Leak Hunter: Jeremías Donald MD Platelets (Bld) [#/Vol] 203 10*3/uL Normal 138-453 [facility] Comment on above: Performed By: #### B MP, CDP #### [facility] [address] [place] [address] Leak Hunter: Jeremías Donald MD RBC (Bld) [#/Vol] 3.99 10*6/uL Low 4.21-5.77 [facility] Comment on above: Performed By: #### B MP, CDP #### [facility] [address] [place] [address] Leak Hunter: Jeremías Donald MD WBC (Bld) [#/Vol] 11.3 10*3/uL Normal 3.5-11.3 [facility] Comment on above: Performed By: #### B MP, CDP #### [facility] [address] [facility] [place] [address] Leak Hunter: Jeremías Donald MD Auto Diff Performed NOT REPORTED Normal [facility] Comment on above: Performed By: #### B MP, CDP #### [facility] [address] [place] [address]. [place] [address] Leak Hunter: Jeremías Donald MD Platelets (Bld) [#/Vol] NOT REPORTED Normal [facility] Comment on above: Performed By: #### B MP, CDP #### [facility] [address] [place] [address]. [place] [address] Leak Hunter: Jeremías Donald MD RBC morphology finding Nom (Bld) NOT REPORTED Normal [facility] Comment on above: Performed By: #### B MP, CDP #### [facility] [address] [place] [address]. [place] [address] Leak Hunter: Jeremías Donald MD WBC Morphology NOT REPORTED Normal [facility] Comment on above: Performed By: #### B MP, CDP #### [facility] [address] [place] [address]. [place] [address] Leak Hunter: Jeremías Donald MD COVID-19on 09-15-2020 SARS-CoV-2 Not Detected Not Detected [place], [place] Comment on above: The specimen is NEGATIVE for SARS-CoV-2, the novel coronavirus associated with COVID-19. A negative result does not rule out COVID-19. This test has been authorized by the FDA under an Emergency Use Authorization (EUA) for use by authorized laboratories. [employer] SARS-CoV-2 Reagents for [employer] are designed to detect the virus that causes COVID-19 in patients with signs and symptoms of infection who are suspected of COVID-19. An individual without symptoms of COVID-19 and who is not shedding SARS-CoV-2 virus would expect to have a negative (not detected) result in this assay. Fact sheet for Healthcare Providers: https://www.fda.gov/media/487387/download Fact sheet for Patients: https://www.fda.gov/media/734115/download METHODOLOGY: RT-PCR SARS-CoV-2 [place] SARS-CoV-2, Rapid [place], [place] Source .NASOPHARYNGEAL SWAB [place] [id number] 09-15-2020 SARS-CoV-2 Not Detected Normal [facility] Comment on above: Result Comment: The specimen is NEGATIVE for SARS-CoV-2, the novel coronavirus associated with COVID-19. A negative result does not rule out COVID-19. This test has been authorized by the FDA under an Emergency Use Authorization (EUA) for use by authorized laboratories. [employer] SARS-CoV-2 Reagents for [employer] are designed to detect the virus that causes COVID-19 in patients with signs and symptoms of infection who are suspected of COVID-19. An individual without symptoms of COVID-19 and who is not shedding SARS-CoV-2 virus would expect to have a negative (not detected) result in this assay. Fact sheet for Healthcare Providers: https://www.fda.gov/media/577587/download Fact sheet for Patients: https://www.fda.gov/media/883354/download METHODOLOGY: RT-PCR Performed By: #### C OVID #### [facility] [address] [place] [address] Leak Hunter: Jeremías Donald MD [id number] [place], [place] [id number] Leak Hunter: Rah Mccollum MD SARS-CoV-2 Normal [facility] Comment on above: Performed By: #### C OVID #### [facility] [address] [place] [address] Leak Hunter: Jeremías Donald MD [facility] [address] [place] [address] Leak Hunter: Rah Mccollum MD SARS-CoV-2,Rapid Normal [facility] Comment on above: Performed By: #### C OVID #### [facility] [address] [place] [address] Leak Hunter: Jeremías Donald MD angelMD [facility] [place] [address] Leak Hunter: Rah Mccollum MD [id number] 09-14-2020 SARS-CoV-2 Source .NASOPHARYNGEAL SWAB Normal [facility] Comment on above: Performed By: #### C OVID #### [facility] [address] [place] [address] Leak Hunter: Jeremías Donald MD [facility] [employer] [facility] [place] [address] Leak Hunter: Rah Mccollum MD EKG 12 Leadon 09-02-2020 Atrial Rate 61 BPM [facility] [place] P [place] 66 degrees [facility] [place] P-R Interval 168 ms [facility] [place] Q-T Interval 406 ms [facility] [place] QRS Duration 98 ms [facility] [place] QTc Calculation (Bazett) 408 ms [facility] [place] R [place] 27 degrees [facility] [place] T [place] 51 degrees [facility] [place] Ventricular Rate 61 BPM [facility] [place] Marcell, Mhpn Incoming Ekg Results From [facility] - 09/02/2020 8:25 AM EST Normal sinus rhythm Possible Anterior infarct , age undetermined Abnormal ECG When compared with ECG of 02-APR-2018 10:00, Minimal criteria for Inferior infarct are no longer Present [facility] [place], [place] Normal sinus rhythm Possible Anterior infarct , age undetermined Abnormal ECG When compared with ECG of 02-APR-2018 10:00, Minimal criteria for Inferior infarct are no longer Present [place] MRSA DNA Probe, Nasalon 08-16 MRSA, DNA, Nasal NEGATIVE: MRSA DNA not detected by nucleic acid amplification. NEGATIVE: MRSA DNA not detected by nucleic acid amplificati [place] Comment on above: Results should be used as an adjunct to nosocomial control efforts to identify patients needing enhanced precautions. The test is not intended to identify patients with staphylococcal infections. Results should not be used to guide or monitor treatment for MRSA infections. Specimen Description .NASAL SWAB [place] MRSA, DNA, Nasalon 0 MRSA, DNA, Nasal NEGATIVE: MRSA DNA not detected by nucleic acid amplification. Normal NMRSAA [facility] Comment on above: Result Comment: Results should be used as an adjunct to nosocomial control efforts to identify patients needing enhanced precautions. The test is not intended to identify patients with staphylococcal infections. Results should not be used to guide or monitor treatment for MRSA infections. Performed By: #### M RSANO #### [facility] [address] [place], [place] [id number] Leak Hunter: Jeremías Donald MD [facility] [employer] [facility] [place] [address] Leak Hunter: Rah Mccollum MD BUN & Creatinineon 0 Creatinine [Mass/Vol] 1.06 mg/dL 0.7 - 1.2 mg/dL [place] GFR >60 >60 mL/min [place] GFR Non- >60 >60 mL/min [place] GFR/1.73 sq M predicted among non-blacks MDRD (S/P/Bld) [Vol rate/Area] NOT REPORTED [place] GFR/1.73 sq M predicted among non-blacks MDRD (S/P/Bld) [Vol rate/Area] [place] Comment on above: Average GFR for 70 o r more years old: 75 mL/min/1.73sq m Chronic Kidney Disease: <60 mL/min/1.73sq m Kidney failure: <15 mL/min/1.73sq m eGFR calculated using average adult body mass. Additional eGFR calculator available at: http://www.Risecom/multiple_crcl_2012.htm Urea nitrogen [Mass/Vol] 23 mg/dL 8 - 23 mg/dL [facility] , [place] BUN + Creatinineon 0 (cont.) Normal [facility] Comment on above: Result Comment: Aver age GFR for 70 or more years old: 75 mL/min/1.73sq m Chronic Kidney Disease: <60 mL/min/1.73sq m Kidney failure: <15 mL/min/1.73sq m eGFR calculated using average adult body mass. Additional eGFR calculator available at: http://www.SuccessNexus.com/multiple_crcl_2012.htm Performed By: #### C DP, BUNCRT, LYTE #### [facility] [address] [place] [address] Leak Hunter: Jeremías Donald MD Creatinine [Mass/Vol] 1.06 mg/dL Normal 0.70-1.20 [facility] Comment on above: Performed By: #### C DP, BUNCRT, LYTE #### [facility] [address] [facility] [place] [address] Leak Hunter: Jeremías Donald MD GFR, Amer >60 Normal >60 [facility] Comment on above: Performed By: #### C DP, BUNCRT, LYTE #### [facility] [address] [facility] [place] [address] Leak Hunter: Jeremías Donald MD GFR,non Amer >60 Normal >60 [facility] Comment on above: Performed By: #### C DP, BUNCRT, LYTE #### [facility] [address] [place] [address] Leak Hunter: Jeremías Donald MD Urea nitrogen [Mass/Vol] 23 mg/dL Normal 8-23 [facility] Comment on above: Performed By: #### C DP, BUNCRT, LYTE #### [facility] [address] [place] [address] Leak Hunter: Jeremías Donald MD Staging: NOT REPORTED Normal [facility] Comment on above: Performed By: #### C DP, BUNCRT, LYTE #### [facility] [address] [facility] [place] [address] Leak Hunter: Jeremías Donald MD CBC Auto Differentialon 08-16 Basophils (Bld) [#/Vol] 0.04 10*3/uL [place] Basophils/100 WBC (Bld) 1 % 0 - 2 % [place] Differential Type NOT REPORTED [place] Eosinophils (Bld) [#/Vol] 0.14 10*3/uL [place] Eosinophils/100 WBC (Bld) 2 % 1 - 4 % [place] Erythrocyte distribution width (RBC) [Ratio] 12.3 % 11.8 - 14.4 % [place] Hematocrit (Bld) [Volume fraction] 46.2 % 40.7 - 50.3 % [place] Hemoglobin (Bld) [Mass/Vol] 14.7 g/dL 13 - 17 g/dL [place] Immature granulocytes (Bld) [#/Vol] 0.01 10*3/uL [place] Immature granulocytes (Bld) [#/Vol] 0 % 0 [place] Interpretation and review of laboratory results Abnormal [place] Lymphocytes (Bld) [#/Vol] 1.43 10*3/uL [place] Lymphocytes/100 WBC (Bld) 19 % Low 24 - 43 % [place] MCH (RBC) [Entitic mass] 31.8 pg 25.2 - 33.5 pg [place] MCHC (RBC) [Mass/Vol] 31.8 g/dL 28 - 38 g/dL [place] MCV (RBC) [Entitic vol] 100.0 fL 82.6 - 102.9 fL [place] Monocytes (Bld) [#/Vol] 0.53 10*3/uL [place] Monocytes/100 WBC (Bld) 7 % 3 - 12 % [place] Platelet mean volume (Bld) [Entitic vol] 9.5 fL 8.1 - 13.5 fL [place] Platelets (Bld) [#/Vol] 233 10*3/uL [place] Platelets (Bld) [#/Vol] NOT REPORTED [place] RBC (Bld) [#/Vol] 4.62 10*6/uL 4.21 - 5.7 7 m/uL [place] RBC morphology finding Nom (Bld) NOT REPORTED [place] Segmented neutrophils/100 WBC (Bld) 71 % High 36 - 65 % [place] Segs Absolute 5.25 [place], [place] WBC (Bld) [#/Vol] 7.4 10*3/uL [place] WBC (Bld) [#/Vol] NOT REPORTED 0.0 per 10 0 WBC [place] WBC Morphology NOT REPORTED [place], [place] CBC with Diffon 09-01-2020 Abs. Basophil 0.04 k/uL Normal 0.00-0.20 [facility] Comment on above: Performed By: #### C NOMAN GRESHAM LYTE #### [facility] [address] [place] [address] Leak Hunter: Jeremías Donald MD Abs.Imm.Granulocyte 0.01 k/uL Normal 0.00-0.30 [facility] Comment on above: Performed By: #### C NMOAN GRESHAM LYTE #### [facility] [address] [place], [place] [id number] (934) Leak Hunter: Jeremías Donald MD Abs.Neutrophil (Seg) 5.25 k/uL Normal 1.50-8.10 [facility] Comment on above: Performed By: #### C DP, BUNCRT, LYTE #### [facility] [place] [address] Leak Hunter: Jeremías Donald MD Basophils/100 WBC (Bld) 1 % Normal 0-2 [facility] Comment on above: Performed By: #### C DP, BUNCRT, LYTE #### [facility] [address] [place] [address] Leak Hunter: Jeremías Donald MD Eosinophils (Bld) [#/Vol] 0.14 10*3/uL Normal 0.00-0.44 [facility] Comment on above: Performed By: #### C DP, BUNCRT, LYTE #### [facility] [address] [place] [address] Leak Hunter: Jeremías Donald MD Eosinophils/100 WBC (Bld) 2 % Normal 1-4 [facility] Comment on above: Performed By: #### C DP, BUNCRT, LYTE #### [facility] [address] [place] [address] Leak Hunter: Jeremías Donald MD Erythrocyte distribution width (RBC) [Ratio] 12.3 % Normal 11.8-14.4 [facility] Comment on above: Performed By: #### C DP, BUNCRT, LYTE #### [facility] [address] [place] [address] Leak Hunter: Jeremías Donald MD Hematocrit (Bld) [Volume fraction] 46.2 % Normal 40.7-50.3 [facility] Comment on above: Performed By: #### C DP, BUNCRT, LYTE #### [facility] [address] [place] [address] Leak Hunter: Jeremías Donald MD Hemoglobin (Bld) [Mass/Vol] 14.7 g/dL Normal 13.0-17.0 [facility] Comment on above: Performed By: #### C DP, BUNCRT, LYTE #### [facility] [address] [facility] [place] [address] Leak Hunter: Jeremías Donald MD Immature granulocytes (Bld) [#/Vol] 0 % Normal 0 [facility] Comment on above: Performed By: #### C DP, BUNCRT, LYTE #### [facility] [address] [place] [address] Leak Hunter: Jeremías Donald MD Lymphocytes (Bld) [#/Vol] 1.43 10*3/uL Normal 1.10-3.70 [facility] Comment on above: Performed By: #### C DP, BUNCRT, LYTE #### [facility] [address] [place] [address] Leak Hunter: Jeremías Donald MD Lymphocytes/100 WBC (Bld) 19 % Low 24-43 [facility] Comment on above: Performed By: #### C DP, BUNCRT, LYTE #### [facility] [address] [place] [address] Leak Hunter: Jeremías Donald MD MCH (RBC) [Entitic mass] 31.8 pg Normal 25.2-33.5 [facility] Comment on above: Performed By: #### C DP, BUNCRT, LYTE #### [facility] [address] [place] [address] Leak Hunter: Jeremías Donald MD MCHC (RBC) [Mass/Vol] 31.8 g/dL Normal 28.0-38.0 [facility] Comment on above: Performed By: #### C DP, BUNCRT, LYTE #### [facility] [address] [facility] [place] [address] Leak Hunter: Jeremías Donald MD MCV (RBC) [Entitic vol] 100.0 fL Normal 82.6-102.9 [facility] Comment on above: Performed By: #### C DP, BUNCRT, LYTE #### [facility] [place] [address] Leak Hunter: Jeremías Donald MD Monocytes (Bld) [#/Vol] 0.53 10*3/uL Normal 0.10-1.20 [facility] Comment on above: Performed By: #### C DP, BUNCRT, LYTE #### [facility] [address] [place] [address]. [place] [address] Leak Hunter: Jeremías Donald MD Monocytes/100 WBC (Bld) 7 % Normal 3-12 [facility] Comment on above: Performed By: #### C DP BUNCRT, LYTE #### [facility] [address] [place] [address]. [place] [address] Leak Hunter: Jeremías Donald MD Neutrophil (Seg) 71 % High 36-65 [facility] Comment on above: Performed By: #### C DP BUNCRT, LYTE #### [facility] [address] [place] [address]. [place] [address] Leak Hunter: Jeremías Donald MD Platelet mean volume (Bld) [Entitic vol] 9.5 fL Normal 8.1-13.5 [facility] Comment on above: Performed By: #### C DP, BUNCRT, LYTE #### [facility] [address] [place] [address]. [place] [address] Leak Hunter: Jeremías Donald MD Platelets (Bld) [#/Vol] 233 10*3/uL Normal 138-453 [facility] Comment on above: Performed By: #### C DP, BUNCRT, LYTE #### [facility] [address] [place] [address] Leak Hunter: Jeremías Donald MD RBC (Bld) [#/Vol] 4.62 10*6/uL Normal 4.21-5.77 [facility] Comment on above: Performed By: #### C DP, BUNCRT, LYTE #### [facility] [address] [place] [address] Leak Hunter: Jeremías Donald MD WBC (Bld) [#/Vol] 7.4 10*3/uL Normal 3.5-11.3 [facility] Comment on above: Performed By: #### C DP, BUNCRT, LYTE #### [facility] [address] [place], [place] [address] [address] Leak Hunter: Jeremías Donald MD Auto Diff Performed NOT REPORTED Normal [facility] Comment on above: Performed By: #### C DP, BUNCRT, LYTE #### [facility] [address] [place], [place] [address] [address] Leak Hunter: Jeremías Donald MD NRBC Automated NOT REPORTED Normal 0.0 [facility] Comment on above: Performed By: #### C DP, BUNCRT, LYTE #### [facility] [place] [address] Leak Hunter: Jeremías Donald MD Platelets (Bld) [#/Vol] NOT REPORTED Normal [facility] Comment on above: Performed By: #### C DP, BUNCRT, LYTE #### [facility] [address] [place], [place] [address] [place] [address] Leak Hunter: Jeremías Donald MD RBC morphology finding Nom (Bld) NOT REPORTED Normal [facility] Comment on above: Performed By: #### C MP BUNCRT, LYTE #### [facility] [address] [place] [address] Leak Hunter: Jeremías Donald MD WBC Morphology NOT REPORTED Normal [facility] Comment on above: Performed By: #### C MP BUNCRT, LYTE #### [facility] [address] [place] [address] Leak Hunter: Jeremías Donald MD Electrolyte Panelon 09-01-20 20 Anion gap [Moles/Vol] 10 mmol/L 9 - 17 mmol/L [facility] [place] Chloride [Moles/Vol] 102 mmol/L 98 - 107 mmol/L [facility], [place] CO2 [Moles/Vol] 27 mmol/L 20 - 31 mmol/L [place] Potassium [Moles/Vol] 4.2 mmol/L 3.7 - 5.3 mmol/L [facility], [place] Sodium [Moles/Vol] 139 mmol/L 135 - 144 mmol/L [facility], [place] Electrolyteson 09-01-2020 Anion gap [Moles/Vol] 10 mmol/L Normal -17 [facility] Comment on above: Performed By: #### C MP BUNCRT, LYTE #### [facility] [place] [address] Leak Hunter: Jeremías Donald MD Chloride [Moles/Vol] 102 mmol/L Normal 98-107 [facility] Comment on above: Performed By: #### C MP BUNCRT, LYTE #### [facility] [address] [place] [address] Leak Hunter: Jeremías Donald MD CO2 [Moles/Vol] 27 mmol/L Normal 20-31 [facility] Comment on above: Performed By: #### C DP BUNCRT, LYTE #### [facility] [address] [place] [address] Leak Hunter: Jeremías Donald MD Potassium [Moles/Vol] 4.2 mmol/L Normal 3.7-5.3 [facility] Comment on above: Performed By: #### C DP BUNCRT, LYTE #### [facility] [address] [place] [address] Leak Hunter: Jeremías Donald MD Sodium [Moles/Vol] 139 mmol/L Normal 135-144 [facility] Comment on above: Performed By: #### C MP BUNCRT, LYTE #### [facility] [address] [place] [address] Leak Hunter: Jeremías Donald MD MRSA, DNA, Nasalon 0 Specimen Description .NASAL SWAB Normal [facility] Comment on above: Performed By: #### M RSANO #### [facility] [address] [facility] [place] [address] Leak Hunter: Jeremías Donald MD [address] [address] Leak Hunter: Rah Mccollum MD TYPE AND SCREENon 09-01-2020 ABO/Rh Positive [facility], [place] Arm Band Number [id number] [facility] [place], [place] Expiration Date 09/23/2020,2358 [facility], [place] Type + Screenon 09-01-2020 Type + Screen Sample Expiration 09/23/2020,2352 Arm Band Number [id number] ABO/Rh(D) O POSITIVE Antibody Screen NEGATIVE Normal [facility] Comment on above: Performed By: #### T YS #### [facility] [address] [place] [address] Leak Hunter: Jeremías Donald MD Vital Signs Date Time Vital Sign Value Performing Clinician Facility 09-29-2024 13:14-0500 Blood Pressure Location [facility] 09-29-2024 13:14-0500 Diastolic blood pressure 84 mm[Hg] [facility] 09-29-2024 13:14-0500 Heart rate 72 /min Amadeo NILL [facility] 09-29-2024 13:14-0500 Respiratory rate 16 /min Amadeo NILL [facility] 09-29-2024 13:14-0500 Systolic blood pressure 136 mm[Hg] Amadeo NILL [facility] 11-08-2023 09:07-0500 Body height 172.7 cm Pm 1 [facility] 11-08-2023 09:07-0500 Body mass index (BMI) [Ratio] 23.42 kg/m2 Pm 1 [facility] 11-08-2023 09:07-0500 Body weight 69.85 kg Pmh 1 [facility] 10-23-2023 08:08-0500 Body height 172.7 cm Jr. Stepanic DO Work Phone: [facility] 10-23-2023 08:08-0500 Body mass index (BMI) [Ratio] 23.11 kg/m2 Jr. Stepanic DO Work Phone: [facility] 10-23-2023 08:08-0500 Body weight 68.95 kg Jr. Stepanic DO Work Phone: [facility] 09-22-2020 11:33-0500 Body Temperature 98.8 [degF] [facility] [place] 09-22-2020 11:33-0500 BP Diastolic 63 mm[Hg] Kareem [facility] , [place] 09-22-2020 11:33-0500 BP Systolic 129 mm[Hg] [facility] [place] [facility] [place] 09-22-2020 11:33-0500 Pulse (Heart Rate) 65 /min [facility] [place] 09-22-2020 11:33-0500 Pulse Oximetry 97 % Kareem Cardoza [facility] , [place] 09-22-2020 11:33-0500 Respiratory Rate 17 /min [facility] [place] 09-20-2020 06:08-0500 BMI (Body Mass Index) 23.63 kg/m2 Kareem Cardoza [facility], [place] 09-20-2020 06:08-0500 Body weight 70.5 kg Kareem Diaz [facility] , [place] 09-20-2020 06:08-0500 Height 172.7 cm [facility] [place] [facility] [place] 09-01-2020 11:37-0500 BMI (Body Mass Index) 23.63 kg/m2 [address], [place] 09-01-2020 11:37-0500 Body Temperature 97 [degF] [address] [facility] [place] 09-01-2020 11:37-0500 Body weight 70.[address] , [place] 09-01-2020 11:37-0500 BP Diastolic 65 mm[Hg] [address] , [place] 09-01-2020 11:37-0500 BP Systolic 135 mm[Hg] [address] , [place] 09-01-2020 11:37-0500 Height 172.[address] , [place] 09-01-2020 11:37-0500 Pulse (Heart Rate) 62 /min [address] 09-01-2020 11:37-0500 Pulse Oximetry 97 % [address] 09-01-2020 11:37-0500 Respiratory Rate 16 /min [address] [facility] Encounters Encounter Date Encounter Type Care Provider Facility Start: 04-26-2025 End: 04-26-2025 ambulatory [facility] Start: 10-28-2024 ambulatory Amadeo R NILL Facility :[facility] Start: 10-27-2024 End: 10-27-2024 ambulatory Amadeo R NILL Facility:[facility] Start: 10-27-2024 End: 10-27-2024 Patient encounter procedure Amadeo R NILL [facility] [place] Start: 10-22-2024 End: 10-22-2024 Office outpatient visit 15 minutes Sandra Burr [employer] Work Phone: [facility] Comment on above: Status post total kn ee replacement, left (Primary Dx); Chronic pain of left knee Start: 10-22-2024 End: 10-22-2024 ambulatory SANDRA BURR Not Available Start: 10-22-2024 End: 10-22-2024 Bamboo flowsheet Sandra Burr [employer] Work Phone: [facility] Start: 10-22-2024 End: 10-22-2024 Bamboo flowsheet Sandra Burr [employer] Work Phone: [facility] Start: 10-13-2024 End: 10-13-2024 ambulatory Amadeo R NILL Facility:[facility] Start: 10-13-2024 End: 10-13-2024 Lab Drop off Amadeo R NILL [facility] Start: 10-13-2024 End: 10-13-2024 ambulatory Amadeo R NILL Facility:[facility] Start: 10-13-2024 End: 10-13-2024 Patient encounter procedure Amadeo R NILL [facility] [place] Start: 09-29-2024 End: 09-29-2024 ambulatory Amadeo R NILL Facility:[facility] Start: 09-29-2024 End: 09-29-2024 Patient encounter procedure Amadeo R NILL [facility] [place] Start: 09-03-2024 ambulatory Amadeo SWAIN Facility:[facility] Start: 07-23-2024 End: 07-23-2024 Bamboo flowsheet Sandra Burr [employer] Work Phone: [facility] Start: 07-23-2024 End: 07-23-2024 Bamboo flowsheet Sandra Burr [employer] Work Phone: [facility] Start: 07-23-2024 End: 07-23-2024 Office outpatient visit 10 minutes Sandra Burr [employer] Work Phone: [facility] Comment on above: Status post total kn ee replacement, left (Primary Dx); Chronic pain of left knee Start: 07-23-2024 End: 07-23-2024 ambulatory SANDRA BURR Not Available Start: 07-06-2024 End: 07-06-2024 Bamboo flowsheet Samanta Stern PA Work Phone: [facility] Start: 07-06-2024 End: 07-06-2024 Bamboo flowsheet Samantasriram Stern PA Work Phone: [facility] Start: 07-06-2024 End: 07-06-2024 Office outpatient new 30 minutes Samanta Stern PA Work Phone: [facility] Comment on above: Seborrheic keratosis (Primary Dx); Melanocytic nevus of trunk Start: 07-06-2024 End: 07-06-2024 ambulatory SAMANTA STERN Not Available Start: 05-06-2024 End: 05-06-2024 Bamboo flowsheet Sandra Burr [employer] Work Phone: [facility] Start: 05-06-2024 End: 05-06-2024 Bamboo flowsheet Sandra Burr [employer] Work Phone: [facility] Start: 05-06-2024 End: 05-06-2024 Office outpatient visit 10 minutes Sandra Burr [employer] Work Phone: [facility] Comment on [...] Not Available Start: 01-03-2024 End: 01-03-2024 ambulatory LUEK GUZMAN Not Available Start: 01-01-2024 End: 01-01-2024 [...] Start: 11-22-2023 End: 11-22-2023 ambulatory CHON WILKINSON [facility] Start: 11-19-2023 End: 11-22-2023 ambulatory JUAN CARLOS ALAS [facility] Start: 11-19-2023 End: 11-21-2023 Evaluation and management of inpatient JUAN CARLOS ALAS [facility] Start: 11-11-2023 End: 11-11-2023 ambulatory MC OSMAN Not Available Start: 11-08-2023 End: 11-09-2023 [facility] Start: 11-08-2023 Encounter for other preprocedural examination [facility] Start: 11-08-2023 End: 11-08-2023 Patient encounter procedure Pmh Pre-Admission Testing 1 [facility] - Pre Admit Comment on above: 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 Juan Carlos Alas DO Work Phone: [facility] Comment on above: Primary osteoarthrit is of left knee (Primary Dx); Chronic pain of left knee Start: 02-13-[address] RUDDY YIN . Facili ty:[facility] Start: 11-27-2022 End: 11-28-[address] RUDDY YIN . Facility:[facility] Start: 11-19-2022 End: 11-20-[address] RUDDY YIN . Facility:[facility] Start: 11-16-2022 End: 11-16-[address] RUDDY YIN . Facility:[facility] Start: 11-14-2022 End: 11-15-[address] RUDDY YIN . Facility:[facility] Start: 09-11-2022 End: 09-11-[address] RUDDY YIN . Facility: Start: 09-20-2020 End: 09-22-2020 Evaluation and management of inpatient [facility] Start: 09-20-2020 End: 09-22-2020 Evaluation and management of inpatient Kareem Diaz Work Phone: [facility] Comment on above: Acute postoperative pain (Primary Dx); Localized osteoarthritis of right knee Start: 09-14-2020 End: 09-15-2020 Patient encounter procedure [facility] Start: 09-14-2020 End: 09-14-2020 Subsequent hospital visit by physician Sarah Beth Covid Screening Schedule [facility] Covid Screening Comment on above: Preop testing (Prima ry Dx) Start: 09-01-2020 End: 09-06-2020 Patient encounter procedure [facility] Start: 09-01-2020 End: 09-05-2020 Subsequent hospital visit by physician Brandie Diggs 2 [facility] PRE-ADMIT TESTING Start: 05-13-2017 End: 05-14-2017 Ambulatory DEFAULT PHYSICIAN Facility:[facility] Procedures Date Procedure Procedure Detail Performing Clinician Start: 10-22-2024 Radiologic examinati on knee 1/2 views Sandra Burr [employer] Work Phone: Start: 05-06-2024 Radiologic examinati on knee 1/2 views Sandra Burr [employer] Work Phone: Start: 11-08-2023 Antibody screen Pmh 1 Start: 10-23-2023 Radiologic examinati on knee 1/2 views Jr. Juan Carlos Alas DO Work Phone: Start: 11-14-[address] LIBERTAD YIN . Comment on above: Performed By: #### V ITAD, PSASC ####[facility] [address] [place], [place] [address]DrCarolyn Peters Start: 09-22-2020 Basic metabolic pane l calcium total Adali D Delgrosso Work Phone: Start: 09-22-2020 Blood count complete auto&auto difrntl wbc Adali D Delgrosso Work Phone: Start: 09-20-2020 End: 09-20-2020 Arthrp kne condyle&platu medial&lat compartments Kareem Zheng Diaz Work Phone: Start: 09-14-2020 COVID-19 Hai Rehana regui Work Phone: Start: 09-01-2020 Blood count complete auto&auto difrntl wbc RUDDY HOY Start: 09-01-2020 BUN AND CREATININE BENJAMÍN LAS HOY Start: 09-01-2020 Electrolyte panel DOUGL HOY Start: 09-01-2020 TYPE AND SCREEN RUDDY HOY Start: 09-01-2020 Iadna s aureus methi cillin resist amp probe tq RUDDY HOY Start: [...] History of coronary artery bypass surgery Jr. Stepanic DO Work Phone: Cardiac catheterization Baldomero ael NILL Cervical laminectomy Amadeo NILL Coronary artery bypa ss 2 coronary venous grafts Amadeo SWAIN Decompression of debra ateral median nerves Amadeo SWAIN Excision of cyst Amadeo Valera Open reduction of fr acture with internal fixation Amadeo SWAIN Repair of joint of l eft knee Amadeo SWAIN Repair of joint of r ight knee Amadeo SWAIN Repair of musculoten dinous cuff of shoulder Amadeo SWAIN Skin graft material (substance) Amadeo SWAIN Plan of Treatment Date Care Activity Detail Author Start: 01-11-2030 DTaP,Tdap and Td Vaccines (2 - Td or Tdap) DTaP,Tdap and Td Vaccines (2 - Td or Tdap) [facility] Start: 01-11-2030 DTaP/Tdap/Td vaccine (2 - Td) DTaP/Tdap/Td vaccine (2 - Td) [place] Start: 10-18-2025 End: 10-18-2025 Patient encounter procedure 10/18/2025 8:00 AM EST Office Visit [facility] [address] [place] [address] Sandra Burr, [employer] [address] [place], [place] [id number] [facility] Start: 07-12-2025 End: 07-12-2025 Patient encounter procedure 07/12/2025 9:00 AM EDT Office Visit [facility] [address] [place] [address] Samanta Stern, PA [address] [place] [address] [facility] Start: 11-11-2024 End: 11-11-2024 Patient encounter procedure 11/11/2024 9:30 AM EST Office Visit [facility] [address] [place] [phone] Sandra Burr, [employer] [address] [place] [address] [facility] Start: 11-08-2024 Adult BMI Screening Adult BMI Screen ing [facility] Start: 11-08-2024 Tobacco Screening Tobacco Screening [facility] Start: 10-22-2024 End: 10-22-2024 Patient encounter procedure 10/22/2024 2:45 PM EST Office Visit [facility] [address] [place] [phone] Sandra Burr, [employer] [address] [place] [address] Arrived [facility] Comment on above: Arrived Start: 07-23-2024 End: 07-23-2024 Patient encounter procedure 07/23/2024 11:15 AM EST Office Visit [facility] [address] [place] [phone] Sandra Burr, [employer] [address] [place] [address] Arrived [facility] Comment on above: Arrived Start: 07-06-2024 End: 07-06-2024 Patient encounter procedure 07/06/2024 10:10 AM EDT Office Visit [facility] [address] [place] [address] Samanta Stern PA [address] [address] Arrived [facility] Comment on above: Arrived Start: 06-26-2024 End: 06-26-2024 Patient encounter procedure 06/26/2024 10:50 AM EDT Office Visit [facility] [address] [place] [address] Samanta Stern WILIAN [address] [facility] [address] [place] [address] [facility] Start: 05-17-2024 Influenza vaccination Influenza Vacc ine (#1) [facility] Start: 05-06-2024 End: 05-06-2024 Patient encounter procedure 05/06/2024 9:30 AM EDT Office Visit [facility] [address] [place] [phone] Sandra Burr, AD[employer] [address] [place] [address] Status post total knee replacement, left; Primary osteoarthritis of left knee [facility] Comment on above: Status post total kn ee replacement, left; Primary osteoarthritis of left knee Start: 11-19-2023 End: 11-19-2023 Admission to same day surgery center 11/19/2023 11:00 AM EST - 11/19/2023 2:00 PM EST Surgery [facility] [address] [place] [phone] Juan Carlos Alas Jr., DO [address] [facility] [address] [place], [place] [id number] REPLACEMENT TOTAL JOINT KNEE [71244 (CPT )] [facility] Comment on above: REPLACEMENT TOTAL INOCENCIA INT KNEE [71696 (CPT )] Start: 11-19-2023 End: 11-19-2023 Anesthesia consultation 11/19/2023 11:00 AM EST Anesthesia Event [facility] [address] [place] [phone] Chon Wilkinson, DO [address] [facility], [place] [id number] [facility] Start: 11-19-2023 End: 11-19-2023 Arthrp kne condyle&platu medial&lat compartments REPLACEMENT TOTAL JOINT KNEE left knee degenerative joint disease, right knee adhesive capsulitis 11/19/2023 11:00 AM EST [facility] Start: 11-19-2023 End: 11-19-2023 Manipulation knee joint under general anesthesia MANIPULATION KNEE left knee degenerative joint disease, right knee adhesive capsulitis 11/19/2023 11:00 AM EST [facility] Start: 11-19-2023 Subsequent hospital visit by physician 11/19/2023 11:00 AM EST Hospital Encounter [facility] [address] [place] [address] Juan Carlos Alas Jr., DO [address] [place] [address] [facility] Start: 11-08-2023 End: 11-05-2024 XR Femur and Tibia Views for leg length [facility] Work Phone: Comment on above: Expected: 11/08/2023 , Expires: 11/05/2024 Start: 11-06-2023 End: 11-06-2023 Patient encounter procedure 11/06/2023 8:00 AM EST Office Visit [facility] [address] [place] [phone] Jr. Juan Carlos Alas, DO [address] [place] [address] [facility] Start: 05-17-2023 COVID-19 Vaccine ( season) COVID-19 Vaccine ( season) [facility] Start: 05-17-2023 Influenza vaccination [facility] Start: 09-20-2020 End: 09-20-2020 Hospital Encounter [facility] Comment on above: RIGHT KNEE TOTAL ART HROPLASTY- BIOMET Start: 09-14-2020 End: 09-14-2020 Appointment 09/14/2020 Appointment Lab [facility] Covid Screening Start: 09-10-2020 End: 09-10-2021 COVID-19 COVID-19 Lab Routine Preop testing Expected: 09/10/2020, Expires: 09/10/2021 [place] Comment on above: Expected: 09/10/2020 , Expires: 09/10/2021 Start: 05-20-2018 Pneumococcal Vaccine : 65+ Years (2 - PCV) Pneumococcal Vaccine: 65+ Years (2 - PCV) [facility] Start: 05-20-2018 Pneumococcal Vaccine : 65+ Years (2 of 2 - PCV) Pneumococcal Vaccine: 65+ Years (2 of 2 - PCV) [facility] Start: 2015 Fall Risk Screening Fall Risk Screen ing [facility] Start: 2000 Administration of varicella zoster vaccine Zoster (Shingles) Vaccine (1 of 2) [facility] Start: 2000 Screening for malign ant neoplasm of colon Colon cancer screen colonoscopy [place], [place] Start: 2000 Shingles Vaccine (1 of 2) Shingles Vaccine (1 of 2) [place] Start: 1962 Depression Screening Depression Scre ening [facility] Start: 1960 Lipid panel Lipid screen [place], [place] Start: 1950 Abdominal aortic aneurysm screening AAA screen [place], [place] Start: 1950 Hepatitis C screening Hepatitis C sc reen [place], [place] Start: 1950 Screening for malign ant neoplasm of colon [facility] Basic metabolic 2000 panel Basic Metabolic Panel Lab STAT Tomorrow AM until discontinued starting 09/22/2020, 1 completed [place] Comment on above: Tomorrow AM until di scontinued starting 09/22/2020, 1 completed CBC Auto Differential CBC Auto D ifferential Lab STAT Tomorrow AM until discontinued starting 09/22/2020, 1 completed [place] Comment on above: Tomorrow AM until di scontinued starting 09/22/2020, 1 completed End: 11-05-2024 Crossmatch RBC Crossmatch RBC Blood Bank Routine Coronary artery disease involving seneca-cayuga coronary artery of seneca-cayuga heart without angina pectoris Preop examination Urinary frequency Hypertension, unspecified type 1 Occurrences starting 11/05/2023 until 11/05/2024 [facility] Comment on above: 1 Occurrences starti ng 11/05/2023 until 11/05/2024 Oxygen therapy [[facility] Data Set] Initiate Oxygen Therapy Protocol Respiratory Care Routine Daily until discontinued starting 09/20/[address] [facility] Comment on above: Daily until disconti nued starting 09/20/2020 Spirometry panel Incentive ileana metry Respiratory Care Routine Every 2hr while awake until discontinued starting 09/20/[address] [facility] [place] Comment on above: Every 2hr while awak e until discontinued starting 09/20/2020 Immunizations Immunization Date Immunization Notes Care Provider Fa cility 09-20-2022 SARS-CoV-2 (COVID-19 ) [id number] Amadeo SWAIN [facility] Comment on above: Result Comment: 2023: [id number] 07-09-2022 Influenza, Seasonal, Quadrivalent, Adjuvanted Sandra Burr [employer] Work Phone: [facility] 07-09-2022 influenza virus vacc ine, unspecified formulation Jr. Alas DO Work Phone: [facility] 02-01-2022 SARS-CoV-2 (COVID-19 ) mRNA-1273 vaccine Amadeo NILL [facility] 07-31-2021 SARS-CoV-2 (COVID-19 ) mRNA-1273 vaccine Amadeo NILL [facility] Comment on above: Result Comment: 2023: [id number] 06-13-2021 Seasonal trivalent influenza vaccine, adjuvanted, preservative free Sandra Burr [employer] Work Phone: [facility] 12-15-2020 SARS-CoV-2 (COVID-19 ) mRNA-1273 vaccine Amadeo NILL [facility] Comment on above: Result Comment: 2023: [id number] 11-17-2020 SARS-CoV-2 (COVID-19 ) mRNA-1273 vaccine Amadeo NILL [facility] Comment on above: Result Comment: 2023: [id number] 07-13-2020 Seasonal trivalent influenza vaccine, adjuvanted, preservative free Sandra Burr [employer] Work Phone: [facility] 01-12-2020 tetanus toxoid, redu elyssa diphtheria toxoid, and acellular pertussis vaccine, adsorbed [facility] 1 [facility] 07-10-2017 influenza virus vacc ine, unspecified formulation Sandra Burr [employer] Work Phone: [facility] 06-17-2017 influenza, injectabl e, quadrivalent, preservative free Sandra Burr NP Work Phone: [facility] 05-20-2017 pneumococcal polysaccharide vaccine, 23 valent Sandra Burr [employer] Work Phone: [facility] 01-04-2017 pneumococcal polysaccharide vaccine, 23 valent Sandra Burr [employer] Work Phone: [facility] Payers Date Payer Category Payer [facility] [employer] [id number] 2016 Unknown 2005 Medicare [id number] 1959 Medicare [id number]. [id number] 1959 Unknown [id number] 1.2.840.901092.1.13.239.2. 7.3.306347.315 1950 Unknown [id number] 2.16.840.1.159175.3.579.2. 177 1950 Unknown [id number] 2.16.840.1.787613.3.579.2. 177 1950 Unknown [id number] 2.16.840.1.320182.3.579.2. 177 1950 Unknown [id number] 2.16.840.1.482206.3.579.2. 593 1950 Unknown [id number] 2.16.840.1.142025.3.579.2. 593 1950 Unknown [id number] 2.16.840.1.817772.3.579.2. 593 1950 Unknown [id number] 2.16.840.1.045097.3.579.2. 593 1950 Unknown [id number] 2.16.840.1.102378.3.579.2. 593 1950 Unknown [id number] 2.16.840.1.257325.3.579.2. 593 1950 Unknown [id number] 2.16.840.1.835717.3.579.2. 1286 1950 Unknown [id number] 2.16.840.1.871946.3.579.2. 1286 1950 Unknown [id number] 2.16.840.1.190624.3.579.2. 1286 1950 Unknown [id number] 2.16.840.1.289190.3.579.2. 1286 1950 Unknown [id number] 2.16.840.1.820564.3.579.2. 1286 1950 Unknown [id number] 2.16.840.1.780144.3.579.2. 1286 1950 Unknown [id number] 2.16.840.1.644709.3.579.2. 1286 1950 Unknown [id number] 2.16.840.1.766345.3.579.2. 1286 1950 Unknown [id number] 2.16.840.1.522778.3.579.2. 1286 1950 Unknown [id number] 2.16.840.1.496202.3.579.2. 1259 1950 Unknown [id number] 2.16.840.1.773452.3.579.2. 1259 1950 Unknown [id number] 2.16.840.1.659739.3.579.2. 1259 1950 Unknown [id number] 2.16.840.1.169303.3.579.2. 1259 1950 Unknown [id number] 2.16.840.1.640608.3.579.2. 1259 1950 Unknown [id number] 2.16.840.1.278865.3.579.2. 1259 1950 Unknown [id number] 2.16.840.1.919270.3.579.2. 1259 1950 Unknown [id number] 2.16.840.1.353004.3.579.2. 1259 1950 Unknown [id number] 2.16.840.1.520283.3.579.2. 1259 1950 Unknown [id number] 2.16.840.1.261571.3.579.2. 1259 1950 Unknown [id number] 2.16.840.1.974876.3.579.2. 1259 1950 Unknown [id number] 2.16.840.1.680258.3.579.2. 1259 1950 Unknown [id number] 2.16.840.1.068058.3.579.2. 1259 1950 Unknown [id number] 2.16.840.1.808613.3.579.2. 1259 1950 Unknown [id number] 2.16.840.1.217394.3.579.2. 1259 1950 Unknown [id number] 2.16.840.1.712511.3.579.2. 1259 1950 Unknown [id number] 2.16.840.1.556636.3.579.2. 1259 1950 Unknown [id number] 2.16.840.1.279894.3.579.2. 125 1950 Unknown [id number] 2.16.840.1.329013.3.579.2. 1258 1950 Unknown [id number] 2.16.840.1.869413.3.579.2. 125 1950 Unknown [id number] 2.16.840.1.472558.3.579.2. 1258 1950 Unknown [id number] 2.16.840.1.588483.3.579.2. 125 1950 Unknown [id number] 2.16.840.1.472442.3.579.2. 1258 1950 Unknown [id number] 2.16.840.1.601438.3.579.2. 1259 1950 Unknown [id number] 2.16.840.1.639885.3.579.2. 1259 1950 Unknown [id number] 2.16.840.1.885648.3.579.2. 125 1950 Unknown [id number] 2.16.840.1.729017.3.579.2. 125 1950 Unknown [id number] 2.16.840.1.437748.3.579.2. 1258 1950 Unknown [id number] 2.16.840.1.842242.3.579.2. 1259 1950 Unknown [id number] 2.16.840.1.729347.3.579.2. 727 1950 Unknown [id number] 2.16.840.1.600564.3.579.2. 727 1950 Unknown [id number] 2.16.840.1.090683.3.579.2. 727 1950 Unknown [id number] 2.16.840.1.959347.3.579.2. 727 1950 Unknown [id number] 2.16.840.1.480555.3.579.2. 727 Social History Date Type Detail Facility Start: 09-01-2020 End: 03-22-2023 Tobacco smoking status NHIS Former smoker [place] End: 03-18-1995 History of tobacco use Current smoker [place] Start: 09-01-2020 End: 09-20-2020 Tobacco use and exposure Former user [place] Start: 09-01-2020 End: 11-08-2023 Alcohol intake Current non-drinker of alcohol (finding) [place] Start: 1950 Sex Assigned At Not on file [place] Exposure to SARS-CoV -2 (event) Not sure [place] History of tobacco use Cigarette Smoker [facility] Start: 03-22-2023 End: 05-22-2023 Tobacco use and exposure Smokeless tobacco non-user [facility] Start: 10-23-2023 End: 07-23-2024 Alcohol intake Ex-drinker (finding) [facility] Start: 10-03-2020 End: 10-23-2023 History of Social function [facility] Start: 10-03-2020 End: 10-23-2023 Tobacco use panel [facility] Tobacco smoking status Former sm okeless tobacco user, quit more than 30 days ago [facility] General Surgery [place] Start: 1950 Sex Assigned At Male [facility] Start: 01-08-2022 Gender identity Identifies as male gender (finding) [facility] Start: 01-08-2022 Sexual orientation Heterosexual (finding) [facility] Medical Equipment Procedure Code Equipment Code Equipment Origin al Text Equipment Identifier Dates [place] Sut Healicoil W/3 Ultrabraid 5.5mm [id number] Start: 04-01-2018 [place] S[place] Healicoil W/3 Ultrabraid 5.5mm [id number] Start: 04-01-2018 [place] S[place] Healicoil W/3 Ultrabraid 5.5mm [id number] Start: 04-01-2018 Dup Use [id number] Impl Knee Psn All Poly Pat Ply [...] Thrd Hex Fem Persona [id number] Start: 09-20-2020 Functional Status Date Assessment Result Facility 10-13-2024 Functional Status N/A [facility] [place] 09-29-2024 Functional Status N/A [facility] [place] Clinical Notes 11-19-2022 to 04-26-2025 Sandra Burr NP - 10/22/2024 2:45 PM Jovani Burr NP - 07/23/2024 11:15 AM WILIAN Kaye - 07/06/2024 10:10 AM Antonio Burr NP - 05/06/2024 9:30 AM EDTPatient Instructions Note Date & Type Note Facility 04-26-2025 Note DE Cardiology - [facility] Subjective Levon Bond is a 74 y.o. year old male [...] establish care. He used to follow with [facility] cardiology, last Cardiology visit available according to [...] Negative for dyspnea on exertion, irregular heartbeat, leg swelling, orthopnea, palpitations and syncope. Respiratory: Negative for cough and shortness of breath. Musculoskeletal: Negative for arthritis, falls and neck pain. Gastrointestinal: Negative for diarrhea and dysphagia. Neurological: Negative for light-headedness and loss of balance. Objective Visit Vitals BP 124/73 (BP Location: Left arm, Patient Position: Sitting) Pulse 59 Ht 1.727 m (5' 8 ) Wt 70.3 kg (155 lb) SpO2 95% BMI 23.57 kg/m??? Smoking Status Former BSA 1.84 m??? Physical Exam Constitutional: Appearance: He is well-developed. [...] BY MOUTH ONCE DAILY WITH SUPPER (Patient takin (more content not included)... [facility] 10-22-2024 History of Present illness Narrative Images from the original note were not included. HISTORY OF PRESENT ILLNESS: EST PT Levon Bond is an 74 y.o. @ male. (EST PT) PO LT TKA W/RT KNEE ЕКАТЕРИНА 11/19/23 (11MO)- DOING WELL XRAY LT KNEE TODAY EPIC 10/22/24 XRAY CHANGE 05/06/24 XRAY CHANGE 12/26/23 XRAY CHANGE 11/27/23 PHYSICAL THERAPY @ [facility] DENIES PAIN- GOOD ROM/STRENGTH- SOME TIGHTNESS- +HYDROCODONE ; TAKES FOR OTHER ISSUES ALLERGIES: No Known Allergies HOME MEDICATIONS: Current Outpatient Medications Medication Instructions aspirin 81 MG EC tablet 1 tablet, Daily atorvastatin (Lipitor) 40 MG tablet TAKE 1 TABLET BY MOUTH ONCE DAILY FOR 90 DAYS cetirizine (ZYRTEC) 10 mg, Daily HYDROcodone-acetaminophen ([place]) 5-325 MG tablet 1-2 tablets Orally every [...] Knee Exam Tenderness The patient is experiencing no tenderness. Range of Motion Extension: normal Flexion: normal Tests Varus: negative Valgus: negative Other Erythema: absent Scars: present Sensation: normal Pulse: present Vitals: There is no height or weight on file to calculate BMI. Tobacco Use: Medium Risk (10/22/2024) Patient History Smoking Tobacco Use: Former Smokeless Tobacco Use: Never Passive Exposure: Not on file Alcohol Use: Not At Risk (07/10/2018) Received from [facility], [employer] [facility] Frequency of Alcohol Consumption: Never Average Number of Drinks: Not on file Frequency of Binge Drinking: Not on file IMAGING: XR knee 1 or 2 views left Imaging Result: 10/22/2024: Standing AP and LAT of left knee showed surgical position and alignment of prosthetic components without evidence of loosening or wear to the femoral, tibial, or patellar components. The alignment appeared to be anatomic. There was no evidence of accelerated or asymmetric wear to the patellar button or tibial tray. There was no evidence of fracture and/or dislocation. Impression: Stable LT total knee replacement. Sandra Burr SUPERVISOR PUMPING-CANDY SPREADER Procedures Orders Placed This Encounter Procedures XR knee 1 or 2 views left Order Specific Question: Reason for exam: Answer: PAIN ASSESSMENT: ICD-10-CM 1. Status post total knee replacement, left Z96.652 2. Chronic pain of left knee M25.562 XR knee 1 or 2 views left G89.29 PLAN: I reviewed xray with patient which showed a stable LT TKA. He is happy with outcome of surgery. I discussed with the patient the general [...] may change on this in the future. He will follow up in 1 year for RCK and xray. Questions answered in laymen terms at the bedside. The diagnosis, home exercise plan and any ongoing restrictions/ recommendations reviewed. If unable to be reached in office, I recommend evaluation at nearest Emergency Room if any symptoms worsened or new symptoms develop for requiring urgent evaluation. Sandra Burr SUPERVISOR PUMPING-CANDY SPREADER documented in this encounter [facility] 09-29-2024 Note General Surgery Offi ce/Clinic Note Chief Complaint consultation for cyst HPI Staff 74 year old male presents on consultation from Dr. Yin for right wrist cyst. Reports noting nodule approximately 6 weeks ago. Denies change in size since first noted. Denies soreness or tenderness. History of Present Illness 74 yo male with h/o CAD, CO, htn, hyperlipidemia, Rheumatoid arthritis, fibromyalgia, referred for right wrist subcutaneous nodule; reports slight increase in size, no pain or skin changes; no imaging. on baby asa daily, no NSAID use. no tobacco use. Review of Systems PHQ Score Initial Depression Screen Score: 0 SCORE ROS - Provider Constitutional: no fever, no sweats, no weight loss. Eyes: no glasses, no blurred vision, no visual loss. ENMT: no dentures, no hoarseness, no swallowing difficulties, no hearing loss, no ear infection(s), no nose bleeds. Cardiovascular: normal blood pressure, no chest pain, regular heartbeat, no heart murmur. Respiratory: no shortness of breath, no cough, no asthma, no wheezing. Gastrointestinal: no nausea, no vomiting, no diarrhea, no constipation, no blood in stool, no change in bowel habits, no abdominal pain, no hepatitis. Genitourinary: no kidney stones, no urine infection, no dysuria. Musculoskeletal: no pain, no weakness. Skin: no changing moles, no rash, yes skin lumps. Neurologic: no seizures, no epilepsy, no headache. Psychiatric: no emotional or psychiatric problem. Heme/Lymph: no bleeding problems, no anemia, no blood clots, no transfusions. Allergy/Immunologic: no swollen lymph nodes/glands, no IV drug abuse. Other: Additional ROS info: Except as noted in the above Review of Systems and in the History of Present Illness, all other systems have been reviewed and are negative or noncontributory. Physical Exam Vitals & Measurements HR: 72(Peripheral) RR: 16 BP: 136/84 HT: 68 in HT: 172.72 cm WT: 72.7 kg WT: 160.276 lb BMI: 24.37 HEENT: normal conjunctiva, sclera clear, no scleral icterus, EOM intact, PERRLA, oral mucosa moist without lesions. Musculoskeletal: normal gait, digits and nails without infection, nodes, cyanosis, clubbing. Skin: no rashes, no lesions, no ulcers, 4 mm nodule ventrolateral right wrist; mobile, nontender, no overlying skin changes; adjacent 1 cm scar, well healed. Psychiatric/Neuro: oriented to time, place, person, judgement normal, affect appropriate for age, insight intact, no focal deficits. Tests: review of old records completed , Discussed surgical options, risks, and possible complications with patient. Assessment/Plan 1. Subcutaneous nodule of right hand (R22.31: Localized swelling, mass and lump, right upper limb) unclear etiology; plan excisional biopsy under local anesthesia in the office for definitive diagnosis and treatment; informed consent obtained. Follow-up No qualifying data available Problem List/Past Medical History Ongoing Anxiety BPH (benign prostatic hyperplasia) Chronic cough Coronary arteriosclerosis Dysfunction of right cardiac ventricle Essential hypertension Fibromyalgia History of myocardial infarction Hyperlipidemia Intermittent claudication Intraventricular conduction defect Irritable bowel syndrome Left ventricular hypertrophy Lumbar radiculopathy Peripheral vascular disease Rheumatoid arthritis Sinus bradycardia Subcutaneous nodule of right hand Historical No qualifying data Procedure/Surgical History Arthroplasty of left knee, Arthroplasty of right knee, Bilateral carpal tunnel release, Cardiac catheterization, Cervical laminectomy, Coronary artery bypass, vein only; 2 coronary venous grafts, Excision of cyst, Graft of skin, ORIF - Open reduction and internal fixation of fracture, Rotator cuff repair. Medications acetaminophen-hydrocodone 325 mg-5 mg oral tablet, 1 tab(s), Oral, QID, PRN aspirin 81 mg Oral EC Tab, 81 mg= 1 tab(s), Oral, Daily atorvastatin 40 mg Tab, 40 mg= 1 tab(s), Oral, Daily cetirizine 10 mg Tab, 10 mg= 1 tab(s), Oral, Daily metoprolol succinate 25 mg ER Tab, 12.5 mg= 0.5 tab(s), Oral, Daily nitroglycerin 0.4 mg sublingual Tab, 0.4 mg= 1 tab(s), SubLingual, q5min, PRN sildenafil 100 mg Tab, 100 mg= 1 tab(s), Oral, Daily traZODONE 100 mg Tab, 200 mg= 2 tab(s), Oral, Once a day (at bedtime) Allergies amoxicillin-clavulanate (Nausea, Blurry Vision, Fluid Retention) Social History Alcohol - Denies Alcohol Use, 09/29/2024 Substance Abuse - Denies Substance Abuse, 09/29/2024 Tobacco Former smoker, quit more than 30 days ago Tobacco Use:. Former smokeless tobacco user, quit more than 30 days ago Smokeless Tobacco Use:. Cigarettes, Oral, 3 per day. Started age 12.0 Years. Stopped age 45 Years., 09/29/2024 Family History Heart disease: Mother, Father and Brother. Stroke: Father. Immunizations Vaccine Date Status Comments SARS-CoV-2 (COVID-19) mRNAMUL.ORD![id number] 09/20/2022 Recorded 2024-09-07: TPV70 SARS-CoV-2 (COVID-19) mRNA (more content not included)... [facility] Comment on above: Result Comment: Elec tronically Signed By: WILIAM CADET, Amadeo Artis\Date and Time Signed: 09/29/24 15:04 EST 07-23-2024 History of Present illness Narrative Images from the original note were not included. Chief Complaint Patient presents with Left Knee - Follow-up HISTORY OF PRESENT ILLNESS: Levon Bond is an 74 y.o. @ male. (EST [...] DAYS cetirizine (ZYRTEC) 10 mg, Daily HYDROcodone-acetaminophen ([place]) 5-325 MG tablet 1-2 tablets Orally every [...] develop for requiring urgent evaluation. Sandra Burr SUPERVISOR PUMPING-CANDY SPREADER documented in this encounter [facility] 07-06-2024 History of Present illness Narrative [...] Visit: 1 year documented in this encounter [facility] 05-06-2024 History of Present illness Narrative Images from the original note were not included. Chief Complaint Patient presents with Left Knee - Follow-up HISTORY OF PRESENT ILLNESS: Levon Bond is an 73 y.o. @ male. (EST PT) PO LT TKA W/RT KNEE ЕКАТЕРИНА 11/19/23 (5 MTHS 2 WKS). XRAY TODAY CHANGE 05/06/24 XRAY CHANGE 12/26/23 XRAY CHANGE 11/27/23 PHYSICAL THERAPY @ [facility] FINISHED PT. STATES HIS BALANCE HAS BEEN [...] cetirizine (ZYRTEC) 10 mg, Oral, Daily HYDROcodone-acetaminophen ([place]) 5-325 MG tablet 1-2 tablets Orally every [...] develop for requiring urgent evaluation. Sandra Burr APRN-CANDY SPREADER documented in this encounter [facility] 11-08-2023 Instructions Nori Gilman RN - 11/08/2023 9:00 AM EST Preoperative Education Checklist- General Surgery date: 11/19/23 Surgery time: 11a Arrival time: 9a 1. Bring a photo ID and your insurance card with you the day of surgery. You will check in at the main lobby of the [facility]- registration desk is straight ahead as soon as you walk in. Tell them you are here for surgery. 2. If you have a Living Will/Durable Power of Business Information Analyst for Health Care that is not on [...] after you have bathed. 5. NO nail mohawk/acrylic on at least one finger. If you are having a hand, wrist or foot surgery then all nail mohawk and artificial/acrylic nails must be removed from [...] please call the Preadmission Testing office at [phone], Mon.-Fri. 7 a.m.-3 p.m. Leave a voicemail [...] with your doctor. documented in this encounter [facility] 10-23-2023 History of Present illness Narrative Images [...] PAST-CX DUE TO CHEST PAIN WHILE IN [place] AND SINUS INFECTION PT SAW DR APPIAH 03/2023 (EMPLOYEE DEVELOPMENT SPECIALIST [facility] ); CLEARANCE UNDER MEDIA XRAY LT KNEE [...] cetirizine (ZYRTEC) 10 mg, Oral, Daily HYDROcodone-acetaminophen ([place]) 5-325 MG tablet 1-2 tablets Orally every [...] requiring urgent evaluation. documented in this encounter [facility] 02-13-2023 Note PROCEDURE: XR ELBOW RT [...] authenticated by: GENNY DAVIS Date: 2023-02-13 14:02 [facility] 11-19-2022 Note PROCEDURE: XR KNEE L T 4V or > COMPARISON: None. HISTORY: Arthritis of left knee FINDINGS: BONES:No acute fracture or dislocation. Moderate tricompartmental osteoarthropathy with marginal osteophyte formation. Narrowing of the medial joint space. SOFT TISSUES:Negative. No visible soft tissue swelling. EFFUSION:Moderate suprapatellar joint effusion OTHER: Negative. IMPRESSION: Moderate osteoarthritis with joint effusion Electronically authenticated by: ANI HARDING Date: 2022-11-19 15:22 [facility] Evaluation + Plan note Future Appointments Appointment Date:10/13/2024 02:00:00 PM Scheduled Provider:mAadeo SWAIN MD Location:[facility] Appointment Type:GS Procedure [facility] Evaluation + Plan note Future Appointments Appointment Date:10/27/2024 02:00:00 PM Scheduled Provider:Amadeo SWAIN MD Location:[facility] Appointment Type:GS Established [facility] Evaluation note Diagnosis Primary osteoarthritis of left knee- Primary Chronic pain of left knee documented in this encounter [facility]* Diagnosis Seborrheic keratosis- Primary Melanocytic nevus [...] HealthcareEvaluation note* Diagnosis Coronary artery disease involving seneca-c[place]uga coronary artery of seneca-[place] heart without angina pectoris- Primary Preop examination Unspecified pre-operative examination Urinary frequency Hypertension, unspecified type Coronary artery disease involving sen[place] coronary artery of sen[place] heart without angina pectoris Preop examination Unspecified pre-operative examination Urinary frequency Hypertension, unspecified type [facility] Narrative No data available for this section [facility] Discharge instructions No data available for this section [facility] [place] Progress note No data available for this section [facility] [place] Summary Purpose Family History No Family History Records FoundNo Family History Records FoundNo Family History Records FoundNo Family History Records Found No data available for this section No data available for this section No data available for this section No Family History Records FoundNo Family History Records FoundNo Family History Records Found No data available for this section No Family History Records FoundNo Family History Records Found Advance Directives No Advanced Directives Records FoundDocuments on File Type Date Recorded Patient Coal Passer Expl anation ACP-Advance Directive ACP-Power of Business Information Analyst Documents on File Type Date Recorded Patient Coal Passer Expl anation ACP-Advance Directive ACP-Power of Business Information Analyst Latest Code Status on File Code Status [...] SNF and will dishcharge to home with [facility]. , Hai. Notified. * Carolina Ervin, PT - 09/22/2020 9:48 AM EST Physical Therapy Facility/Department: [facility] Daily Treatment Note NAME: Levon Bond : 1950 Date of Service: 09/22/2020 Discharge Recommendations: Subacute/Group Home Facility(if declining, recommend PT) RN reports [...] of Anginal pain (HCC), Arthritis, Fibromyalgia, Hyperlipidemia, CO (myocardial infarction) (HCC), Mood swings, Prolonged emergence [...] perform slight LAQ. OutComes Score AM-PAC Score [facility] Inpatient Mobility Raw Score : 17 (09/22/20946) AM-PAC Inpatient T-Scale Score : 42.13 (09/22/20946) Mobility Inpatient CMS 0-100% Score: 50.57 (09/22/20946) Mobility Inpatient CMS G-Code Modifier : CK (09/22/20946) Goals Short term goals Time Frame for Short term goals: 5 visits: Short term goal 1: Pt. to be indep with bed mob. 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 LE as needed Short term [...] Group Co-treatment Time In 08 Time Out 09 Minutes 41 Co-treatment with OT warranted secondary [...] that discharge plan is Home. Agency/Facility chosen: [facility] Awaiting pre-certification no Anticipated discharge date: [...] were answered. Actively listened and provided reassurance. ELLA * Carolina Ervin, PT - 09/22/2020 8:31 [...] Warner MD - 09/22/2020 8:09 AM EST [facility] Office: [phone] Dwayne Orourke DO, Sabino Archibald DO, Lam Mayo DO, Momo Aguilera DO, Tyson Warner MD, Amie Haque MD, Fernando Vera MD, Deanne Clay MD, Twin Be MD, Nadeen Amezcua MD, MD Ashia, Haris Pacheco MD, Shanae Ramirez MD, Sandoval Whitaker DO, Liane Carvajal MD, Beth Gordillo MD, Homar Dennis DO, Sofiya Guzmán MD, Nat Amezcua DO, Spencer Castellano MD, MD Juan, Donya Monsalve, CANDY SPREADER, Adali Cameron, CANDY SPREADER, Bambi Muhammad, CANDY SPREADER, Jennifer Keller, FLIGHT SOFTWARE TEST ENGINEER,Devyn Trejo, CANDY SPREADER, Ladi Pedersen, CANDY SPREADER, Deyanira Leo, CANDY SPREADER, Mary Jane Bauman, CANDY SPREADER, Kuldip Knight, CANDY SPREADER, Charli Cueva PA-C, Heidi Foote, ZACH, Charline Swanson, CANDY SPREADER, Adelina Adamson, CANDY SPREADER, Madison Maya, CANDY SPREADER, Gemma Lopez, CANDY SPREADER, Lory Schrader, CANDY SPREADER [facility] IN-PATIENT SERVICE [facility] Progress Note 09/22/2020 8:09 AM Name: Levon Bond Acct: [id number] Room: IP Day: 2 Admit Date: 09/20/2020 [...] Infusions: sodium chloride 125 mL/hr at 09/20/20 8649 PRN Meds: calcium carbonate, nitroGLYCERIN, sodium chloride flush, promethazine OR ondansetron,magnesium hydroxide, oxyCODONE OR oxyCODONE, HYDROmorphone OR HYDROmorphone, chlordiazePOXIDE Data: Past Medical History: has a past medical history of Anginal pain (HCC), Arthritis, Fibromyalgia, Hyperlipidemia, CO (myocardial infarction) (HCC), Mood swings, Prolonged emergence [...] No results for input(s): PROT, LABALBU, LABA1C, R3ETLLW, W5LMZQV, FT4, TSH, AST, ALT, LDH, GGT, ALKPHOS, LABGGT, BILITOT, BILIDIR, AMMONIA, AMYLASE, LIPASE, LACTATE, CHOL, HDL, LDLCHOLESTEROL, CHOLHDLRATIO, TRIG, VLDL, AJH15QK, PHENYTOIN, PHENYF, URICACID, POCGLU in the last 72 hours. ABG:No results found for: POCPH, PHART, PH, POCPCO2, FCF1JXG, PCO2, POCPO2, PO2ART, PO2, POCHCO3, ILC1BKL, HCO3, NBEA, PBEA, BEART, BE, THGBART, THB, VSN2HAY, YYBL5UVJ, E7GGHPGK, O2SAT, FIO2 No results found for: SPECIAL [...] Hardin RN - 09/22/2020 3:51 AM EST [employer] noticed more redness on the outer part [...] 09/21/2020 3:12 PM EST Physical Therapy Facility/Department: [facility] Daily Treatment Note NAME: Levon Bond : 1950 Date of Service: 09/21/2020 Discharge Recommendations: Home with Home health PT, Subacute/Group Home Facility, Continue to assess pending progress [...] of Anginal pain (HCC), Arthritis, Fibromyalgia, Hyperlipidemia, CO (myocardial infarction) (HCC), Mood swings, Prolonged emergence [...] to getting out of bed. OutComes Score [facility] Score -[facility] Inpatient Mobility Raw Score : 17 (09/21/201510) -[facility] Inpatient T-Scale Score : 42.13 (09/21/201510) Mobility Inpatient CMS 0-100% Score: 50.57 (09/21/201510) Mobility Inpatient [facility] G-Code Modifier : CK (09/21/201510) Goals Short term goals Time Frame for Short term goals: 5 visits: Short term goal 1: Pt. to be indep with bed mob. 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 LE as needed Short term [...] CLINICAL PHARMACY NOTE: MEDS TO [facility] Patient?: No Total # of [...] 09/21/2020 10:34 AM EST Physical Therapy Facility/Department: [facility] MED SURG Daily Treatment Note NAME: Levon [...] of Anginal pain (HCC), Arthritis, Fibromyalgia, Hyperlipidemia, CO (myocardial infarction) (HCC), Mood swings, Prolonged emergence [...] to getting out of bed. OutComes Score -[facility] Score -[facility] Inpatient Mobility Raw Score : 17 (09/21/201033) [facility] Inpatient T-Scale Score : 42.13 (09/21/201033) Mobility Inpatient [facility] 0-100% Score: 50.57 (09/21/201033) Mobility Inpatient [facility] G-Code Modifier : CK (09/21/201033) Goals Short term goals Time Frame for Short term goals: 5 visits: Short term goal 1: Pt. to be indep with bed mob. 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 LE as needed Short term [...] Group Co-treatment Time In 804 Time Out 09 Minutes 55 Carolina Ervin PT * Tyson Warner MD - 09/21/2020 9:10 AM EST [facility] Office: [phone] Dwayne Orourke DO, Sabino Archibald DO, Lam Mayo DO, Momo Aguilera DO, Tyson Warner MD, Amie Haque MD, Fernando Vera MD, Deanne Clay MD, Twin Be MD, Nadeen Amezcua MD, MD Ashia, Haris Pacheco MD, Shanae Ramirez MD, Sandoval Whitaker DO, Liane Carvajal MD, Beth Gordillo MD, Homar Dennis DO, Sofiya Guzmán MD, Nat Amezcua DO, Spencer Castellano MD, MD Juan, Donay Monsalve CNP, Adali Cameron CANDY SPREADER, Bambi Muhammad CANDY SPREADER, Jennifer Keller, FLIGHT SOFTWARE TEST ENGINEER,Devyn Trejo, CANDY SPREADER, Ladi Pedersen, CANDY SPREADER, Deyanira Leo CANDY SPREADER, Mary Jane Bauman CANDY SPREADER, Kuldip Knight CNP, Charli Cueva PA-C, Heidi Foote, ZACH, Charline Swanson, CANDY SPREADER, Adelina Adamson, CANDY SPREADER, Madison Maya, CANDY SPREADER, Gemma Lopez, CANDY SPREADER, Lory Schrader, CANDY SPREADER [facility] IN-PATIENT SERVICE [facility] Progress Note 09/21/2020 9:10 AM Name: Levon Bond Acct: [id number] Room: IP Day: 1 Admit Date: 09/20/2020 [...] Infusions: sodium chloride 125 mL/hr at 09/20/20 2299 PRN Meds: nitroGLYCERIN, sodium chloride flush, promethazine OR ondansetron, magnesium hydroxide, oxyCODONE OR oxyCODONE, HYDROmorphone OR HYDROmorphone, chlordiazePOXIDE Data: Past Medical History: has a past medical history of Anginal pain (HCC), Arthritis, Fibromyalgia, Hyperlipidemia, CO (myocardial infarction) (HCC), Mood swings, Prolonged emergence [...] RDW, PLT, MPV, SEDRATE, CRP, INR, DDIMER, GP3GVPBR, LABABSO in the last 72 hours. Invalid input(s): PT Chemistry:No results for input(s): NA, K, CL, CO2, GLUCOSE, BUN, CREATININE, MG, ANIONGAP, LABGLOM,GFRAA, CALCIUM, CAION, PHOS, PSA, PROBNP, TROPHS, CKTOTAL, CKMB, CKMBINDEX, MYOGLOBIN, DIGOXIN, LACTACIDWB in the last 72 hours.No results for input(s): PROT, LABALBU, LABA1C, W5SUEIJ, A1UKXBW, FT4, TSH, AST, ALT, LDH, GGT, ALKPHOS, LABGGT, BILITOT, BILIDIR, AMMONIA, AMYLASE, LIPASE, LACTATE, CHOL, HDL, LDLCHOLESTEROL, CHOLHDLRATIO, TRIG, VLDL, QGW84KQ, PHENYTOIN, PHENYF, URICACID, POCGLU in the last 72 hours. ABG:No results found for: POCPH, PHART, PH, POCPCO2, FSE0FDS, PCO2, POCPO2, PO2ART, PO2, POCHCO3, RYW0YYW, HCO3, NBEA, PBEA, BEART, BE, THGBART, THB, ALK0DNM, ZNJG3EZO, E8LUZZHP, O2SAT, FIO2 No results found for: SPECIAL [...] MD - 09/21/2020 7:50 AM EST Ortho Txgp-dt-Qxso Discussion of Medical Necessity for Use of [...] in 2 weeks Kareem Diaz MD * Harley Molinassica, PT - 09/20/2020 6:05 PM EST Physical Therapy Facility/Department: [facility] MED SURG Initial Assessment-Day of Surgery NAME: [...] of Anginal pain (HCC), Arthritis, Fibromyalgia, Hyperlipidemia, CO (myocardial infarction) (HCC), Mood swings, Prolonged emergence [...] Ambulation Assistance: Independent Transfer Assistance: Independent Active Technical Training Coordinator: Yes Mode of Transportation: Car Occupation: Retired Type of occupation: retired from [employer]. 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 [...] with bed mob. 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 [...] pt will Short term goal 1: demo S/CO with ADL transfers and functional mob with good safety/pacing and approp AD/DME Short term goal 2: demo S/CO with toileting routine Short term goal 3: [...] plan is Home. 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 1950 Admit date: 09/20/2020 Discharge [...] Patient Instructions: Levon Bond Home Medication Instructions JE:[id number] Printed on:09/21/20 0753 Medication Information aspirin 325 [...] Extended Emergency Contact Information Primary Emergency Contact: [facility] Relation: Spouse Past Surgical History: Past Surgical History: Procedure Laterality Date ANKLE SURGERY CARDIAC CATHETERIZATION 12/19/2015 double bypass CARPAL TUNNEL RELEASE Bilateral CERVICAL FUSION COLONOSCOPY CORONARY ARTERY BYPASS GRAFT 2015 Double bypass LEG SURGERY due to accident MS SHLDR ARTHROSCOP,SURG,W/ROTAT CUFF REPR Left 04/01/2018 SHOULDER ARTHROSCOPY LEFT WITH ROTATOR CUFF REPAIR - KAMARA & NEPHEW performed by Kareem Diaz MD at [facility] OR ROTATOR CUFF REPAIR Left 04/01/2018 with arthroscopy TOTAL KNEE ARTHROPLASTY Right 09/20/2020 RIGHT KNEE TOTAL ARTHROPLASTY performed by Kareem Diaz MD at [facility] OR TRANSESOPHAGEAL ECHOCARDIOGRAM 12/19/2015 Immunization History: [...] Independent Dressing Assisted Toileting Independent Feeding Independent Rubber Curer Independent Med Delivery whole Wound Care Documentation [...] [facility] Details FAX [address] [place] [address] Dialysis Facility (if applicable) Name: Address: Dialysis Schedule: Phone: Fax: Psychological Operations Officer/X Ray Service Technician signature: PHYSICIAN SECTION Prognosis: Good Condition at [...] THE ORTHOPEDIC COORDINATOR: RAJ FINCH RN, BSN [phone] [email or web address] YOU MAY ALSO MESSAGE ME ON GET [...] orthopedic appointment with surgeon Discharge instructions video: [email or web address] Keep it Clean Post-Operative Home instructions These instructions are to help you have the best possible recovery after your surgical procedure. [facility] is here to support you. If you have questions, call [phone] Saturday through Saturday from 7:30AM to 8:30PM to speak to a nurse. If you need to speak to someone outside of these hours, call your physician. Incision Do s and Don ts Do wash hands before and after dressing changes or when you have had any contact with your incision. Use hand test deck supervisor or antibacterial soap. Do keep your incision [...] to your discharge paperwork for further instructions pinion-pins SURGICAL DRESSING: A waterproof barrier to protect [...] Everywhere. * TKR (Total Knee Replacement): Post-op (Kyrgyz) * TKR (Total Knee Replacement): Rehabilitation (Kyrgyz) * Constipation (Kyrgyz) * DVT (Deep Vein Thrombosis): General Info (Kyrgyz) * acetaminophen and oxycodone (Kyrgyz) * aspirin (oral) (Kyrgyz) * docusate and senna (Kyrgyz) documented in this encounter Additional Source Comments (unrecognized sect ion and content) No Status Records FoundNo Status Records FoundNo Status Records FoundNo Status Records FoundNo Status Records FoundNo Status Records FoundNo Status Records FoundNo Status Records FoundNo Status Records Found INFORMATION SOURCE (unrecogn ized section and content) DATE CREATED AUTHOR 03/12/[address] [facility] DATE CREATED AUTHOR AUTHOR'S ORGANIZ ATION 09/23/2020 [facility] DATE CREATED AUTHOR AUTHOR'S ORGANIZ ATION 02/22/2023 [facility] DATE CREATED AUTHOR AUTHOR'S ORGANIZ ATION 11/23/2023 [facility] DATE CREATED AUTHOR AUTHOR'S ORGANIZ ATION 10/20/2024 [facility] DATE CREATED AUTHOR AUTHOR'S ORGANIZ ATION 10/27/2024 [facility] DATE CREATED AUTHOR AUTHOR'S ORGANIZ ATION 10/30/2024 [facility] DATE CREATED AUTHOR AUTHOR'S ORGANIZ ATION 04/27/2025 [facility] Reason for Visit (unrecogniz ed section and content) Status Reason Specialty Diagnoses / Procedures Referre d By Contact Referred To Contact Diagnoses Osteoarthritis of right knee DX OA RIGHT KNEE Procedures MS TOTAL KNEE ARTHROPLASTY RIGHT KNEE TOTAL ARTHROPLASTY- BIOMET Kareem Diaz MD [address] [place] [address] [facility] Reason Comments Pain Reason Comments Skin [...] Care Teams (unrecognized sec tion and content) Manager Cash Relationship Specialty Start Date End Date Ruddy Yin MD [address] [place] [facility] [place] [address] PCP - General Family Medicine 01/30/23 Manager Cash Relationship Specialty Start Date End Date Ruddy Yin MD [address] [place] [facility] [place] [address] PCP - General Family Medicine 01/30/23 Manager Cash Relationship Specialty Start Date End Date Ruddy Yin MD [address] [place] [facility] [place] [address] PCP - General Family Medicine 01/30/23 Manager Cash Relationship Specialty Start Date End Date Ruddy Yin MD [address] [place] [facility] [place] [address] PCP - General Family Medicine 01/30/23 Manager Cash Relationship Specialty Start Date End Date Ruddy Yin MD [address] [place] [facility] [place] [address] PCP - General Family Medicine 01/30/23 Manager Cash Relationship Specialty Start Date End Date Ruddy Yin MD [address] [place] [address] PCP - General 05/12/18 FOR RECORDS PERTAINING [...] BE BASED ON THE PRIMARY CLINICAL RECORDS. [employer] [facility]. provides no warranty or guarantee of the accuracy or completeness of information in this document.
--- OUTSIDE RECORDS SUMMARY | 2025-05-06 06:25 | XMS_ITS | Encounter Summary ---
Author Organization [facility] Address [address] [place] [address] Care Team Providers Care Retail Event Coordinator Name Role Phone Ruddy Salas MD Primary Care Provider [phone] Encounter Details Date Type Department Care Team (Late st Contact Info) Description 03/22/2023 External Result Encounter [facility] [address] [place] [phone] Jr. Keith Alas, [address] [facility] [address] [place] [address] Social History Tobacco Use Types Packs/Day Years Used Date Smoking Tobacco: Never Assessed Sex and Gender Information Value Date Recorded Sex Assigned at Not on file Legal Sex Male 6:40 PM EDT Gender Identity Not on file Sexual Orientation Not on file documented as of this encounter Plan of Treatment Upcoming Encounters Date Type Department Care Team (Late st Contact Info) Description 07/12/2025 9:00 AM EDT Office Visit [facility] [address] [place] [phone] Samanta Apple PA [address] [place] [address] 10/18/2025 8:00 AM EST Office Visit [facility] [address] [place] [phone] Dylan Chadwick, TELLER [address] [place] [address] documented as of this encounter Procedures Procedure Name Priority Date/Time Associated Diagnosis Comments CBC WITH AUTO DIFFERENTIAL Routine 11/08/2023 9:37 AM EST URINALYSIS, MANUAL ONLY Routine 11/08/2023 9:37 AM EST CULTURE, URINE, ROUTINE Routine 11/08/2023 9:37 AM EST BASIC METABOLIC PANEL Routine 11/08/2023 9:37 AM EST XR LOWER EXTREMITY LEG LENGTH EVALUATION 03/24/2023 8:30 AM EDT XR CHEST 2 VIEWS 03/22/2023 3:05 PM EDT CBC WITH AUTO DIFFERENTIAL Routine 03/22/2023 11:28 AM EDT URINALYSIS, MANUAL ONLY Routine 03/22/2023 11:28 AM EDT CULTURE, URINE, ROUTINE Routine 03/22/2023 11:28 AM EDT BASIC METABOLIC PANEL Routine 03/22/2023 11:28 AM EDT documented in this encounter Results * Urine culture (11/08/2023 9:37 AM EST) URINE CULTURE RESULTS BELOW [facility] Comment: SPECIMEN DESCRIPTION CLEAN CATCH MIDSTREAM URINE CULTURE RESULTS <10,000 ORGANISMS/ML NORMAL URO GENITAL BEST REPORT STATUS 11/09/2023 FINAL PERFORMED AT [facility] [address],[place] [address] 11/08/2023 9:37 AM EST 11/08/2023 9:39 AM EST Jr. Keith Alas DO LAB MICROBIOLOGY - GENE RAL ORDERABLES Final Result [facility] * Basic metabolic panel (11/08/2023 9:37 AM EST) Sodium 138 134 - 146 mmol/L [facility] Potassium, Bld 4.7 3.5 - 5.0 mmol/L [facility] Chloride 101 98 - 109 mmol/L [facility] Carbon Dioxide 30 22 - 32 mmol/L [facility] Anion Gap 7 5 - 15 mmol/L [facility] BUN 23 5 - 27 mg/dL [facility] Creatinine 0.92 0.60 - 1.30 mg/dL [facility] Comment:METHOD TRACEABLE TO IDMS STANDARD Glucose 94 65 - 99 mg/dL [facility] Calcium 10.0 8.5 - 10.5 mg/dL [facility] EGFR 88 >59 ml/min/1.7 3sq.m [facility] Comment: Reported eGFR is based on the CKD-EPI 2020 equation that does not use a race coefficient. PERFORMED AT [facility] [address],[place] [address] 11/08/2023 9:37 AM EST 11/08/2023 9:39 AM EST Jr. Keith Alas DO LAB BLOOD ORDERABLES [facility] Result [facility] * (ABNORMAL) CBC auto differential (11/08/2023 9:37 AM EST) WHITE BLOOD CELL COUNT, WBC 8.9 4.0 - 11.0 X10E9/L [facility] RED BLOOD CELL COUNT, RBC 4.73 4.10 - 5.70 X10E12/L [facility] HEMOGLOBIN 15.3 13.0 - 17.0 g/dL [facility] HEMATOCRIT 45.3 39 - 49 % [facility] MEAN CELL VOLUME, MCV 96 80 - 100 fL [facility] MEAN CELL HEMOGLOBIN, MCH 32.3 27 - 34 pg [facility] MEAN CELL HEMOGLOGIN CONCENTRATION, MCHC 33.7 32 - 36 g/dL [facility] RED CELL DISTRIBUTION WIDTH, RDW 13.3 11.5 - 15.0 % [facility] PLATELET COUNT 257 150 - 450 X10E9/L [facility] MEAN PLATELET VOLUME, MPV 8.9 7 - 12 fL [facility] % NEUTROPHILS 77.7 % [facility] % LYMPHOCYTES 12.3 % [facility] % MONOCYTES 9.0 % [facility] % EOSINOPHILS 0.6 % [facility] % BASOPHILS 0.4 % [facility] ABSOLUTE NEUTROPHIL 6.9(H) 1.5 - 6.6 X10E9/L [facility] ABSOLUTE LYMPHOCYTE 1.1 1.0 - 3.5 X10E9/L [facility] ABSOLUTE MONOCYTE 0.8 0 - 0.9 X10E9/L [facility] ABSOLUTE EOSINOPHIL 0.0 0.0 - 0.4 X10E9/L [facility] ABSOLUTE BASOPHIL 0.0 0.0 - 0.2 X10E9/L [facility] Comment:PERFORMED AT [facility] [address],[place] [address] 11/08/2023 9:37 AM EST 11/08/2023 9:39 AM EST [facility] Fi nal Result Performing Organization Address City/[facility] Co de Phone Number [facility] * Urinalysis, manual only (11/08/2023 9:37 AM EST) COLOR YELLOW YELLOW [facility] TURBIDITY CLEAR CLEAR [facility] SPECIFIC GRAVITY 1.010 1.003 - 1.035 [facility] NITRITE Negative Negative [facility] PH, URINE 6.0 5.0 - 8.5 [facility] LEUKOCYTE ESTERASE Negative Negative [facility] PROTEIN Negative Negative mg/dL [facility] GLUCOSE (URINE) Negative Negative mg/dL [facility] KETONES (URINE) Negative Negative mg/dL [facility] UROBILINOGEN <1.1 <1.1 eu/dL [facility] BILIRUBIN (URINE) Negative Negative [facility] BLOOD/HGB Negative Negative [facility] 11/08/2023 9:37 AM EST 11/08/2023 9:39 AM EST Jr. Keith [facility] LAB URINE ORDERABLES Fi nal Result Performing Organization Address City/[facility] Co de Phone Number [facility] * XR lower extremity leg length evaluation (03/24/2023 8:30 AM EDT) Anatomical Region Laterality Modality Lower Extremities Radiographic I maging 03/24/2023 8:30 AM EDT Narrative 03/24/2023 8:29 AM EDT THIS EXAM WAS PERFORMED AT [facility] History: Scheduled knee surgery Exam/Technique: Frontal views of the ureters were obtained for purposes of a leg length study. Comparison: None Findings: Measures obtained from the top of femoral head to the knee joint show the femur to measure 49.8 cm. Measurements from the tibial plateau to the distal tibia shows the tibia measured 39.8 cm. There is extensive deformity of the right ankle with metallic hardware fusing the ankle joint. There is a right knee arthroplasty in place. IMPRESSION: As above Finalized by Orestes Peterson MD on 03/24/2023 8:29 AM Procedure Note Radiology, Radiologist, MD - 03/24/2023 THIS EXAM WAS PERFORMED AT [facility] History: Scheduled knee surgery Exam/Technique: Frontal views of the ureters were obtained for purposesof a leg length study. Comparison: None Findings: Measures obtained from the top of femoral head to the kneejoint show the femur to measure 49.8 cm. Measurements from the tibialplateau to the distal tibia shows the tibia measured 39.8 cm. There is extensive deformity of the right ankle with metallic hardwarefusing the ankle joint. There is a right knee arthroplasty in place. IMPRESSION: As above Finalized by Orestes Peterson MD on 03/24/2023 8:29 AM Jr. Keith Alas DO IMG XR PROCEDURES Final Result * XR chest 2 views (03/22/2023 3:05 PM EDT) Anatomical Region Laterality Modality Chest Radiographic Aylin ging 03/22/2023 3:05 PM EDT Narrative 03/22/2023 3:04 PM EDT THIS EXAM WAS PERFORMED AT [facility] Procedure: Chest x-ray performed Number of views:PA and lateral History:Preop Comparison:07/10/2018 Findings: The heart and lungs show no acute findings, and the mediastinum and sam are grossly negative . Impression: No acute change. Finalized by Marlene Rose DO on 03/22/2023 3:04 PM Procedure Note Radiology, Radiologist, - 03/22/2023 THIS EXAM WAS PERFORMED AT [facility] Procedure: Chest x-ray performed Number of views:PA and lateral History:Preop Comparison:07/10/2018 Findings: The heart and lungs show no acute findings, and the mediastinumand sam are grossly negative . Impression: No acute change. Finalized by Marlene Rose DO on 03/22/2023 3:04 PM us Jr. Keith Alas DO IMG XR PROCEDURES Final Result * Urine culture (03/22/2023 11:28 AM EDT) Pathologist [facility] URINE CULTURE RESULTS BELOW [facility] Comment: SPECIMEN DESCRIPTION CLEAN CATCH MIDSTREAM URINE CULTURE RESULTS <10,000 ORGANISMS/ML NORMAL URO GENITAL BEST REPORT STATUS 03/23/2023 FINAL PERFORMED AT [facility] [address], [place] [address] 03/22/2023 11:2 8 AM EDT 03/22/2023 11:29 AM EDT us Jr. Keith Alas DO LAB MICROBIOLOGY - GENE RAL ORDERABLES Final Result [facility] * (ABNORMAL) Basic metabolic panel (03/22/2023 11:28 AM EDT) Pathologist [facility] Sodium 140 134 - 146 mmol/L [facility] Potassium, Bld 4.4 3.5 - 5.0 mmol/L [facility] Chloride 103 98 - 109 mmol/L [facility] Carbon Dioxide 34(H) 22 - 32 mmol/L [facility] Anion Gap 3(L) 5 - 15 mmol/L [facility] BUN 16 5 - 27 mg/dL [facility] Creatinine 0.87 0.60 - 1.30 mg/dL [facility] Comment:METHOD TRACEABLE TO IDMS STANDARD Glucose 94 65 - 99 mg/dL [facility] Calcium 9.6 8.5 - 10.5 mg/dL [facility] EGFR >90 >59 ml/min/1.7 3sq.m [facility] Comment: Reported eGFR is based on the CKD-EPI 2020 equation that does not use a race coefficient. PERFORMED AT [facility] [address],[place] [address] 03/22/2023 11:2 8 AM EDT 03/22/2023 11:29 AM EDT Jr. Keith Alas DO LAB BLOOD ORDERABLES Fi nal Result [facility] * CBC auto differential (03/22/2023 11:28 AM EDT) WHITE BLOOD CELL COUNT, WBC 4.4 4.0 - 11.0 X10E9/L [facility] RED BLOOD CELL COUNT, RBC 4.48 4.10 - 5.70 X10E12/L [facility] HEMOGLOBIN 14.6 13.0 - 17.0 g/dL [facility] HEMATOCRIT 43.1 39 - 49 % [facility] MEAN CELL VOLUME, MCV 96 80 - 100 fL [facility] MEAN CELL HEMOGLOBIN, MCH 32.5 27 - 34 pg [facility] MEAN CELL HEMOGLOGIN CONCENTRATION, MCHC 33.8 32 - 36 g/dL [facility] RED CELL DISTRIBUTION WIDTH, RDW 13.2 11.5 - 15.0 % [facility] PLATELET COUNT 226 150 - 450 X10E9/L [facility] MEAN PLATELET VOLUME, MPV 8.3 7 - 12 fL [facility] % NEUTROPHILS 62.8 % [facility] % LYMPHOCYTES 25.6 % [facility] % MONOCYTES 8.3 % [facility] % EOSINOPHILS 2.8 % [facility] % BASOPHILS 0.5 % [facility] ABSOLUTE NEUTROPHIL 2.7 1.5 - 6.6 X10E9/L [facility] ABSOLUTE LYMPHOCYTE 1.1 1.0 - 3.5 X10E9/L [facility] ABSOLUTE MONOCYTE 0.4 0 - 0.9 X10E9/L [facility] ABSOLUTE EOSINOPHIL 0.1 0.0 - 0.4 X10E9/L [facility] ABSOLUTE BASOPHIL 0.0 0.0 - 0.2 X10E9/L [facility] Comment:PERFORMED AT [facility] [address],[place] [address] 03/22/2023 11:2 8 AM EDT 03/22/2023 11:29 AM EDT [facility] LAB BLOOD ORDERABLES Fi nal Result Performing Organization Address City/[facility] de Phone Number [facility] * Urinalysis, manual only (03/22/2023 11:28 AM EDT) COLOR YELLOW YELLOW [facility] TURBIDITY CLEAR CLEAR [facility] SPECIFIC GRAVITY 1.014 1.003 - 1.035 [facility] NITRITE Negative Negative [facility] PH, URINE 6.5 5.0 - 8.5 [facility] LEUKOCYTE ESTERASE Negative Negative [facility] PROTEIN Negative Negative mg/dL [facility] GLUCOSE (URINE) Negative Negative mg/dL [facility] KETONES (URINE) Negative Negative mg/dL [facility] UROBILINOGEN <1.1 <1.1 eu/dL [facility] BILIRUBIN (URINE) Negative Negative [facility] BLOOD/HGB Negative Negative [facility] 03/22/2023 11:2 8 AM EDT 03/22/2023 11:29 AM EDT [facility] LAB URINE ORDERABLES Fi nal Result Performing Organization Address [facility] de Phone Number [facility] documented in this encounter Visit Diagnoses Not on filedocumented in this encounter Care Teams Retail Event Coordinator Relationship Specialty Start Date End Date Ruddy Salas MD PCP - General Family Medicine 01/30/23 documented as of this encounter
--- OUTSIDE RECORDS SUMMARY | 2025-05-06 06:25 | XMS_ITS | Patient Health Record ---
Author Organization [facility] Address [address] [place] [address] Support Name Relationship Address Phone ASAD BOND Guarantor Unknown Reason For Referral No Information Medications Medication SIG (Take, Route, Frequency, Duration) Notes Start Date End Date Status Xanax 0.25 mg take 1 tablet by ora l route 3 times every day ORAL XANAX Active Effexor XR 75 mg take 1 capsule by or al route every day with food ORAL EFFEXOR XR Active Percocet 5/325 325 mg-5 mg take 1 - 2 Tablet by oral route every 6 hours as needed ORAL PERCOCET Active Flomax 0.4 mg take 1 capsule by or al route every day 1/2 hour following the same meal each day ORAL FLOMAX Active Levsin 0.125 mg take 1 tablet by ora l route every 4 hours as needed ORAL LEVSIN Active Melatonin 5 mg ORAL MELATONIN Act karmen lisinopril 10 mg take 1 tablet by ora l route every day ORAL LISINOPRIL Active Plan Of Treatment No Information Insurance Providers Payer Name Payer Address Payer Phone Subscriber Number Group Number Insured Name Patient Relationship to Insured Coverage Start Date Coverage End [place] [address] [place] [place] [address] [phone] [id number] ASAD GOVEA Self - patient is the insured
--- OUTSIDE RECORDS SUMMARY | 2025-05-06 06:25 | XMS_ITS | Patient Health Record ---
Author Organization [facility] in [place] Address [address] [place] [address] Care Team Providers Care Legal Referee Name Role Phone Fco Salas Primary Care Provider [phone] Yasmine Kelli Unavailable [phone] Miri Simmons Unavailable [phone] Allergies Allergen (clinical drug ingredient) Drug/Non Drug Allergy documented on EMR Reaction Allergy Type Onset Date Status amoxicillin / clavulanate Augmentin Nausea, Blurry Vision, Fluid Retention Drug Allergy Active Results Component Value Reference Range Notes CBC AUTO DIFF Reviewed date:09/06/2024 02:27:16 PM Interpretation: Performing Lab: Notes/Report: [facility] , White Blood Count 5.3 4.0-11.0 10 3/uL Red Blood Count 4.72 4.70-6.10 10 6/uL Hemoglobin 15.4 14.0-18.0 g/dL Hematocrit 46.3 42.0-54.0 % Mean Corpuscular Volume 98.1 80.0-94.0 fL Mean Corpuscular Hemoglobin 32.6 25.9-34.0 pg Mean Corpuscular HGB Conc 33.3 29.9-35.2 g/dL Red Cell Distribution Width 11.9 11.0-15.0 % Platelet Count 214 150-450 10 3/uL Mean Platelet Volume 9.5 9.5-13.5 fL Neutrophils Percent Auto 60.0 43.0-75.0 % Lymphocytes Percent Auto 26.7 20.5-60.0 % Monocytes Percent Auto 9.5 1.7-12.0 % Eosinophils Percent Auto 3.2 0.9-7.0 % Basophils Percent Auto 0.4 0.2-2.0 % Immature Granulocytes Pct Auto 0.2 0.0-0.5 % Neutrophils Absolute Auto 3.2 1.4-6.5 10 3/uL Lymphocytes Absolute Auto 1.4 1.2-3.8 10 3/uL Monocytes Absolute Auto 0.5 0.3-0.8 10 3/uL Eosinophils Absolute Auto 0.2 0.0-0.7 10 3/uL Basophils Absolute Auto 0.0 0.0-0.1 10 3/uL Immature Granulocytes Abs Auto 0.01 0.00-0.03 10 3/uL Performing Lab: see note - [facility] GLYCOHEMOGLOBIN A1C Reviewed date:09/06/2024 02:27:16 PM Interpretation: Performing Lab: Notes/Report: [facility] , Glycohemoglobin A1C 5.5 4.5-6.2 % ADA THERAPEUTIC TARGET < 7.0 ACTION SUGGESTED > 7.0 ADA RECOMMENDED LIMIT 4.0 - 6.0 Estimated Average Glucose 111 Performing Lab: see note - [facility] PSA SCREENING Reviewed date:09/06/2024 02:27:16 PM Interpretation: Performing Lab: Notes/Report: [facility] , Prostate Specific Antigen Scrn 1.76 <=4.00 ng/mL Performing Lab: see note [facility] INSULIN Reviewed date:09/07/2024 08:37:55 PM Interpretation: Performing Lab: [facility]Report: [facility] , Insulin 12.8 2.6-24.9 uIU/mL [address] [place], [place] [id number] Photo Tech: Shaun Thomson PhD, Phone: [phone] [facility] Lab: see note - [facility] URIC ACID SERUM Reviewed date:09/06/2024 02:27:16 PM Interpretation: Performing Lab: Notes/Report: [facility] , Uric Acid 4.7 3.5-7.2 mg/dL Performing Lab: see note [facility] TSH Reviewed date:09/06/2024 02:27:16 PM Interpretation: Performing Lab: Notes/Report: [facility] , Thyroid Stimulating Hormone 4.197 0.358-3.740 u IU/mL Performing Lab: see note ML - [facility] LB T4 Reviewed date:09/06/2024 02:27:16 PM Interpretation: Performing Lab: Notes/Report: [facility] , T4 Thyroxine 7.30 4.50-12.10 ug/dL Performing Lab: see note ML - [facility] LB PROF 14(COMP METB) Reviewed date:09/06/2024 02:27:16 PM Interpretation: Performing Lab: Notes/Report: [facility] , Sodium 142 136-145 mmol/L Potassium 4.4 3.5-5.1 mmol/L Chloride 104 98-107 mmol/L Carbon Dioxide 32.1 21.0-32.0 mmol/L Anion Gap 10.3 Glucose 94 74-106 mg/dL Blood Urea Nitrogen 20.0 7.0-18.0 mg/dL Creatinine 1.09 0.70-1.30 mg/dL Estimated GFR ( Madalyn >60 >=60 mL/min/1.73m 2 Estimated GFR (Non- Melvina >60 >=60 mL/min/1.73m 2 BUN Creatinine Ratio 18.3 Calcium 9.4 8.5-10.1 mg/dL Bilirubin Total 0.5 0.2-1.0 mg/dL Aspartate Amino Transferase 23 15-37 U/L Alanine Aminotransferase 26 16-63 U/L Alkaline Phosphatase 58 46-116 U/L Total Protein 7.1 6.4-8.2 g/dL Albumin Level 3.7 3.4-5.0 g/dL Globulin 3.4 Albumin Globulin Ratio 1.1 Performing Lab: see note ML - [facility] LB LIPID PROFILE Reviewed date:09/06/2024 02:27:16 PM Interpretation: Performing Lab: Notes/Report: [facility] , Triglycerides 81 <=150 mg/dL Cholesterol 152 <=200 mg/dL HDL Cholesterol 55 40-60 mg/dL > or =60 mg/dl - LOW CARDIOVASCULAR RISK <40 mg/dl - HIGH CARDIOVASCULAR RISK LDL Cholesterol Calculated 80.8 160-189 mg/dl HIGH 100-129 mg/dl NEAR OR ABOVE OPTIMAL 130-159 mg/dl BORDERLINE HIGH <100 mg/dl OPTIMAL >190 mg/dl VERY HIGH VLDL CHOLESTEROL 16.2 Chol HDL Ratio 2.8 7.1 - 11.0 MODERATE RISK >11.0 HIGH RISK 3.3 - 4.4 LOW RISK 4.4 - 7.1 AVERAGE RISK Performing Lab: see note ML - [facility] LB FREE T3 Reviewed date:09/06/2024 02:27:16 PM Interpretation: Performing Lab: Notes/Report: [facility] , Free T3 2.78 2.18-3.98 pg/mL Performing Lab: see note ML - [facility] LB Reason For Referral Diagnosis 1 Skin cyst (L72.9) Referral Organization [facility] Referring Provider First Name Fco Referring Provider Last Name Josue Referring Provider [facility] laine Referred Provider Amadeo Sheikh Referred Provider Specialty General Surg jaquan Referral Priority Routine Diagnosis 1 H/O two vessel coron josé luis artery bypass graft (Z95.1) Diagnosis 2 Coronary artery dise ase involving yurok coronary artery of yurok heart without angina pectoris (I25.10) Diagnosis 3 Hyperlipidemia, unsp ecified hyperlipidemia type (E78.5) Diagnosis 4 LVH (left ventricula r hypertrophy) (I51.7) Diagnosis 5 Sinus bradycardia (R 00.1) Diagnosis 6 Right ventricular dy sfunction (I51.9) Referral Organization [facility] Referring Provider First Name Fco Referring Provider Last Name Josue Referring Provider [facility] laine Ref[facility] Provider [facility] Specialty Cardiology Referral Priority Routine Medications Medication SIG (Take, Route, Frequency, Duration) Notes Start Date End Date Status Metoprolol Succinate ER 25 MG Take 1/2 (one-half) tablet by mouth once daily for 90 Active Cetirizine HCl 10 MG Take 1 tablet by mo [facility] once daily for 30 Active HYDROcodone-Acetaminophen 5-325 MG 1 tablet Orally qid - prn for 14 days M17.0 04/06/2025 Active traZODone HCl 100 MG Take 2 tablets by m [facility] once daily for 30 Active Sildenafil Citrate 100 MG TAKE 1 TABLET BY MOUTH ONCE A DAY NEEDED 30 MINUTES BEFORE INTERCOURSE NOT MORE THAN EVERY 3 DAYS for 23 days Active Atorvastatin Calcium 40 MG 1 tablet Oral ly Once a day for 90 days Active Aspir-81 81 MG Orally Once a day Active Nitroglycerin 0.4 MG 1 tablet Sublingual every 5 min. not to exceed 3 in 15 min period for 90 days PRN Active Immunizations Vaccine Route Administration Date Status Comme nts Flu, Fluad (65641) 65 yrs and older, single-dose syringe (9604-1618) IM Intramuscular 06/30/2024 Administered Flu, Fluad (47133) 65 yrs+, single-dose syringe (4745-9417) IM Intramuscular 07/02/2023 Administered Social History Tobacco Use: Social History Observation Description Date Details (start date - stop date) Former Smoker NA - 03/16/1995 Tobacco Use/Smoking Question Answer Notes Patient is a former smoker When did you stop smoking? 03/16/1995 How long has it been since you last smoked? > 10 years Alcohol Screen (Audit-C) Question Answer Notes Did you have a drink containing alcohol in the p ast year? No Points 0 Interpretation Negative Living Will Question Answer Notes Living Will Yes, patient has a living will, but it is not on file AUDIT-C (Standard) Question Answer Notes Did you have a drink containing alcohol in the p ast year? No Points 0 Interpretation Negative Problems Problem Type SNOMED Code ICD Code Onset Dates Problem Status W/U Status Risk Notes Problem Acute frontal sinusitis (86155415) Acute recurrent frontal sinusitis (J01.11) Active confirmed Problem Sebaceous cyst (002026377) Sebaceous cyst (L72.3) Active confirmed Problem Arthritis of left knee (176630891685560 4) Other specified arthritis, left knee (M13.862) Active confirmed Problem Ganglion (33407038) Ganglion, other site (M67.48) Active confirmed Problem Nocturia (512275047) Nocturia (R35.1) Active confirmed Problem Altered mental status (888687701) Altered mental status, unspecified (R41.82) Active confirmed Problem 078432765 Encounter for preprocedural cardiovascular examination (Z01.810) Active confirmed REPLACEMENT TOTAL JOINT KNEE (Left: Knee) MANIPULATION KNEE (Right: Knee) Dr.George Alas , 11/19/2023 , [facility] Problem 341353008838093 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.52) Active confirmed Problem 230155792987 Presence of right artificial knee joint (Z96.651) Active confirmed Problem Fatigue (76055755) Fatigue (R53.83) Active confirmed Problem 94318851 Sinus bradycardia (R00.1) Active confirmed well tolerated Problem Anxiety (94089569) Anxiety (F41.9) Active confirmed Problem Osteoarthritis of knee (206922960) Primary osteoarthritis of right knee (M17.11) Active confirmed Problem 48687345 LVH (left ventricular hypertrophy) (I51.7) Active confirmed mild Problem 118094140 Insomnia (G47.00) Active confirmed Problem Ankle pain (788571145) Ankle pain (M25.579) Active confirmed Problem 3410349 IVCD (intraventricula r conduction defect) (I45.4) Active confirmed Problem 81626694 Essential (primary) hypertension (I10) Active confirmed well controlled Problem 4697536308740 Coronary artery disease involving yurok coronary artery of yurok heart without angina pectoris (I25.10) Active confirmed STEMI (12/30) inferoposterior wall; asymptomatic, with PLVSF; Exi/cassie c-lite 04/2022 no ischemia, EF 51%, March 2023 Problem Rheumatoid arthritis (89280837) RA (rheumatoid arthritis) (M06.9) Active confirmed Problem Lumbar radiculopathy (629159038) Lumbar radiculopathy (M54.16) Active confirmed Problem Acute sinusitis (50313881) Acute sinusitis (J01.90) Active confirmed Problem 680871567 Family history of early CAD (Z82.49) Active confirmed Problem 960220656 Complete tear of left rotator cuff (M75.122) Active confirmed Problem 705269737 Atypical chest pain (R07.89) Active confirmed resolved witho ut recurrence Problem Constipation (48352463) Constipation (K59.00) Active confirmed Problem 945818897 Primary osteoarthritis of both knees (M17.0) Active confirmed Problem Irritable bowel syndrome (78423224) Irritable bowel syndrome (K58.9) Active confirmed Problem Memory loss (84759723) Memory loss (R41.3) Active confirmed Problem 0678238929843 Status post right knee replacement (Z96.651) Active confirmed Problem 9091470 Former smoker (Z87.891) Active confirmed Problem Fibromyalgia (401895126) Fibromyalgia (M79.7) Active confirmed Problem Ganglion cyst (94186888) Ganglion cyst (M67.40) Active confirmed Problem Nevus (6828804527) Nevus (D22.9) Active confirmed Problem Peripheral vascular disease (953597397) Claudication, intermittent (I73.9) Active confirmed Problem History of circulatory system disease (238428677) History of coronary artery disease (Z86.79) Active confirmed Problem Epidermoid cyst of skin (045008450) Skin cyst (L72.9) Active confirmed Problem Old myocardial infarction (4713525) Status post myocardial infarction (I25.2) Active confirmed Problem Elbow pain (35908903) Elbow pain (M25.529) Active confirmed Problem 177881050 Right ventricular dysfunction (I51.9) Active confirmed Problem History of coronary artery bypass grafting (859501743) S/P CABG x 2 (Z95.1) Active confirmed Problem 562209685 H/O two vessel coronary artery bypass graft (Z95.1) Active confirmed 12/19/15 SVG/OM-SVG/RCA Problem Peyronie's disease (1914353) Peyronie's disease (N48.6) Active confirmed Problem Epididymitis (82724393) Epididymitis, right (N45.1) Active confirmed Problem 16497937 Hyperlipidemia, unspecified hyperlipidemia type (E78.5) Active confirmed Problem Other symptoms referable to back (M53.80) Active confirmed Problem Benign prostatic hypertrophy without outflow obstruction (184125661) Benign hypertrophy of prostate (N40.0) Active confirmed Problem Peripheral vertigo (64614292) Vertigo, peripheral (H81.399) Active confirmed Problem 445666181 H/O: hypertension (Z86.79) Active confirmed Problem 584972810 Arthritis of left acromioclavicula r joint (M19.012) Active confirmed Problem Adult health examination (073229402) Encounter for routine adult medical examination (Z00.00) Active confirmed Problem 488776806 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 confirmed Problem 999839419 Scapholunate advanced collapse of left wrist (M19.132) Active confirmed Problem Low back pain (657618916) Low back pain, unspecified (M54.50) Active confirmed Problem Chronic cough (32549200) Chronic cough (R05.3) Active confirmed Vital Signs Heart Rate 51 /min 05/12/2024 Blood pressure diastolic 72 mm Hg 12/11/2024 Height 68 in 12/11/2024 Blood pressure systolic 138 mm Hg 12/11/2024 Weight 160.6 lbs 12/11/2024 BMI 24.42 kg/m2 12/11/2024 Encounters Encounter Location Date Provider Diagnosis [facility] [address] [place] [address] 03/17/2025 Fco chandan [facility] [address] [facility] [place] [address] 04/05/2025 Fco Josue [facility] [address] [facility] [place] [address] 04/06/2025 Fco chandan [facility] [address] [facility] [place] [address] 04/06/2025 Fco Salas H/O two vessel coron josé luis artery bypass graft Z95.1 ; Hyperlipidemia, unspecified hyperlipidemia type E78.5 and Coronary artery disease involving yurok coronary artery of yurok heart without angina pectoris I25.10 [facility] [address] [place] [address] 04/09/2025 Fco chandan [facility] [address] [facility] [place] [address] 09/06/2024 Fco Salas Other specified abnormal findings of blood chemistry R79.89 [facility] [address] [place] [address] 09/22/2024 Fco chandan [facility] [address] [place] [address] 09/23/2024 Fco Salas [facility] [address] [place] [address] 11/06/2024 Fco Josue [facility] [address] [place] [address] 12/09/2024 Fco chandan [facility] [address] [place] [address] 02/03/2025 Fco Salas [facility] [address] [place] [address] 05/22/2024 Fco Salas [facility] [address] [place] [address] 06/18/2024 Fco Hoy [facility] [address] [place] [address] 07/29/2024 Fco Hoy [facility] [address] [place] [address] 08/05/2024 Fco Hoy [facility] [address] [place] [address] 09/02/2024 Fco Hoy [facility] [address] [place] [address] 09/02/2024 Fco Hoy Skin cyst L72.9 and Memory loss R41.3 [facility] [address] [place] [address] 12/11/2024 Fco Hoy Low back pain, unspecified M54.50 [facility] [address] [place] [address] 07/14/2024 Fco Hoy Leg laceration S81.8 19A [facility] [address] [place] [address] 05/26/2024 Fco Hoy Other specified arthritis, left knee M13.862 [facility] [address] [place] [address] 09/23/2024 Fco Hoy Primary osteoarthrit is of both knees M17.0 [facility] [address] [place] [address] 03/18/2025 Fco Hoy Low back pain, unspecified M54.50 [facility] [address] [place] [address] 04/06/2025 Fco Hoy Lumbar radiculopathy M54.16 [address] [place] [address] 05/12/2024 Kelli Underwood Coronary artery dise ase involving yurok coronary artery of yurok heart without angina pectoris I25.10 ; Atypical chest pain R07.89 ; H/O two vessel coronary artery bypass graft Z95.1 ; H/O: hypertension Z86.79 ; Right ventricular dysfunction I51.9 ; Hyperlipidemia, unspecified hyperlipidemia type E78.5 ; LVH (left ventricular hypertrophy) I51.7 ; IVCD (intraventricular conduction defect) I45.4 and Sinus bradycardia R00.1 [facility] [address] [place] [address] 06/30/2024 Fco Hochandan Encounter for immunization Z23 and Leg laceration S81.819A [facility] [address] [place] [address] 07/07/2024 Fco Hoy Leg laceration S81.8 19A Assessments Encounter Date Diagnosis (ICD Code) Assessment Notes Treatment Notes Treatment Clinical Notes Section Notes 05/12/2024 Coronary artery disease involving yurok coronary artery of yurok heart without angina pectoris (ICD-10 - I25.10) STEMI (12/30) inferoposterior wall; asymptomatic, with PLVSF; Exi/cassie c-lite 04/2022 no ischemia, EF 51%, March 2023 05/12/2024 Atypical chest pain (ICD-10 - R07.89) resolved without recurrence 05/26/2024 Other specified arthritis, left knee (ICD-10 - M13.862) 06/30/2024 Encounter for immunization (ICD-10 - Z23) 06/30/2024 Leg laceration (ICD-10 - S81.819A) 07/07/2024 Leg laceration (ICD-10 - S81.819A) 7 sutures removed - others to be removed next weeek 07/14/2024 Leg laceration (ICD-10 - S81.819A) 09/02/2024 Skin cyst (ICD-10 - L72.9) 09/02/2024 Memory loss (ICD-10 - R41.3) 09/23/2024 Primary osteoarthritis of both knees (ICD-10 - M17.0) 12/11/2024 Low back pain, unspecified (ICD-10 - M54.50) Toradol and triamcinolone 03/18/2025 Low back pain, unspecified (ICD-10 - M54.50) 04/06/2025 Lumbar radiculopathy (ICD-10 - M54.16) 09/06/2024 Other specified abnormal findings of blood chemistry (ICD-10 - R79.89) 04/06/2025 H/O two vessel coronary artery bypass graft (ICD-10 - Z95.1) 04/06/2025 Hyperlipidemia, unspecified hyperlipidemia type (ICD-10 - E78.5) 04/06/2025 Coronary artery disease involving yurok coronary artery of yurok heart without angina pectoris (ICD-10 - I25.10) 05/12/2024 H/O two vessel coronary artery bypass graft (ICD-10 - Z95.1) 12/19/15 SVG/OM-SVG/RCA 05/12/2024 H/O: hypertension (ICD-10 - Z86.79) 05/12/2024 Right ventricular dysfunction (ICD-10 - I51.9) 05/12/2024 Hyperlipidemia, unspecified hyperlipidemia type (ICD-10 - E78.5) 05/12/2024 LVH (left ventricular hypertrophy) (ICD-10 - I51.7) mild 05/12/2024 IVCD (intraventricular conduction defect) (ICD-10 - I45.4) 05/12/2024 Sinus bradycardia (ICD-10 - R00.1) well tolerated 05/12/2024 Other Counseling was provided regarding healthy eating habits. Continue low cholesterol diet, low salt diet, and exercise program. 11/10/2024 Other Counseling was provided regarding healthy eating habits. Continue low cholesterol diet, low salt diet, and exercise program. 12/11/2024 Other Recommended to rest and use a heating pad on the area. Take NSAIDs for pain as needed Plan Of Treatment Pending Test Test Name Order Date Exercise Stress Nuclear Test 04/03/2023 CMP (COMPLETE METABOLIC PANEL) CMP (COMPLETE METABOLIC PANEL) 4 D-DIMER 05/28/2017 HEMOGLOBIN A1C (GLYCO) 12/31/2023 HEMOGLOBIN A1C (GLYCO) 09/02/2024 INSULIN, TOTAL 09/02/2024 LIPID PANEL (CHOL/TRIG/HDL/LDL) 09/02/20 LIPID PANEL (CHOL/TRIG/HDL/LDL) 12/31/19 24 CBC WITH DIFF 12/31/2023 CBC WITH DIFF 09/02/2024 PSA, PROSTATE-SPECIFIC ANTIGEN URIC ACID 12/31/2023 URIC ACID 09/02/2024 XR Chest PA and Lateral (Routine CXR) * 09/27/2023 CT Chest w/contrast * 05/28/2017 T3 FREE, T4 FREE and TSH 01/02/2024 PSA, TOTAL 09/02/2024 STOOL OCCULT BLOOD 12/31/2023 STOOL OCCULT BLOOD 09/02/2024 XR Elbow 4 Views Right 02/13/2023 THYROID PROFILE WITH TSH 01/27/2024 MRI BRAIN WO CON 09/02/2024 XR DEXA BONE DENSITY 03/21/2023 XR LSPINE 2_3 VIEWS 07/17/2023 THYROID PANEL (T4/TSH/FREE T3) 4 THYROID PANEL (T4/TSH/FREE T3) THYROID PANEL (T4/TSH/FREE T3) VASC ANKLE BRACHIAL INDEX (DELMY) WITHOUT EXERCISE 01/27/2024 Insurance Providers Payer Name Payer Address Payer Phone Subscriber Number Group Number Insured Name Patient Relationship to Insured Coverage Start Date Coverage End Date MEDICARE [place] [address] [phone] [id number] Levon Lloyd Self - patient is the insured 4 MMO MEDICARE SUPPLE[employer] T [address] [place] [address] [id number] Levon Lloyd Self - patient is the insured 0 Medications Administered Medication Instructions Date of Administration Dosage Notes Kenalog-40 12/31/2022 80 mg depo 80 Kenalog-40 02/26/2023 80 mg With 1 cc of Lidocaine with epi Left Knee Injection Kenalog-40 03/22/2023 80 mg Kenalog-40 07/29/2023 80 mg Kenalog-40 02/17/2024 80 mg Kenalog-40 05/26/2024 80 mg Ketorolac Tromethamine 05/09/2023 60 mg Ketorolac Tromethamine 07/17/2023 30 mg Ketorolac Tromethamine 12/11/2024 30 mg Ketorolac Tromethamine 04/06/2025 30 mg Orphenadrine Citrate 07/17/2023 30 mg Triamcinolone 40 mg/ml 09/23/2024 80 mg Triamcinolone 40 mg/ml 12/11/2024 80 mg Triamcinolone 40 mg/ml 03/18/2025 80 mg Medical (General) History Medical History History ICD Code History of Hypertension History of Hyperlipidemia History of Bradycardia History of Coronary Artery Disease History of Left Ventricular Hypertrophy History of Insomnia History of right ventricular dysfunction History of intraventricular conduction d efect Acute sinusitis J01.90 Ganglion, other site M67.48 Low back pain, unspecified M54.50 Epididymitis, right N45.1 Altered mental status, unspecified R41.8 2 Ganglion cyst M67.40 Nevus D22.9 Acute recurrent frontal sinusitis J01.11 Claudication, intermittent I73.9 Vertigo, peripheral H81.399 Encounter for routine adult medical exam ination Z00.00 Sebaceous cyst L72.3 Benign hypertrophy of prostate N40.0 Nocturia R35.1 Irritable bowel syndrome K58.9 Peyronie's disease N48.6 Ankle pain M25.579 RA (rheumatoid arthritis) M06.9 Fibromyalgia M79.7 Other symptoms referable to back M53.80 Anxiety F41.9 Essential (primary) hypertension I10 Coronary artery disease invo lving yurok coronary artery of yurok heart without angina pectoris I25.10 Surgical History Surgery Date(Month/Year) 2 cysts from back removed Excisional Biopsy Cyst Right Wrist Heart Cath 12/19/2015 CABG SV-OM; SV-RCA 12/19/2015 Right tib fib ORIF with bone graft IM rodding rt tib fib cervical laminectomy bilat carpal tunnel skin flap from back to rt tib fib Lt shoulder arthroscopy, complex RCR, ca psular release Santy May 04/01/18 Right Total Knee Arthroplasty-Santy May 09/20/2020 Left Total Knee Replacement- Hospitalization History Reason Date(Month/Year) See Above
--- NOTE | 2025-05-06 06:45 | NM_ITS ---
Patient Name: ASAD BOND MR#: [id number] : 1950 Exam Date: 05/06/2025 Ordering Doctor: DR JUAN CARLOS POTTER M.D. RADIOLOGY REPORT PROCEDURE: NM KAYLEEN PERF SPECT REST STR COMPARISON: None. INDICATIONS: CORONARY ARTERY DISEASE, FATIGUE, DIZZINESS TECHNIQUE: Exam Description: Rest/Stress one day protocol gated SPECT Rest Imagin.4 mCi Tc-99m Cardiolite IV on 05/06/2025 Stress Imaging 30.5 mCi Tc-99m Cardiolite IV on 05/06/2025 Exercise Protocol: 0.4 mg Lexiscan given IV Heart Rate (bpm): Rest: 46 Max: 76 PMHR: 52 Blood Pressure: Rest: 142/78 Max: 142/78 Symptoms: Rest and peak stress ECG findings were pending, and the exercise portion of the study was pending per attending physician [facility]. For more details, please see separate cardiac stress test report. FINDINGS: QUALITY OF STUDY: Good PERFUSION DEFECT: LOCATION: N/A SIZE: N/A SEVERITY: N/A TYPE: N/A WALL MOTION: Normal wall motion LV SIZE: 87 mL. TID / TCD: 0.8 LVEF: Calculated EF 62%. SUMMARY: Myocardial perfusion imaging study is normal CONCLUSION: 1. Myocardial perfusion is normal with soft tissue attenuation 2. Global left ventricular systolic function is normal 3. No significant transient ischemic dilatation Dictated by: Alejo Wallace M.D. on 05/06/2025 at 16:26 Approved by: Alejo Wallace M.D. on 05/06/2025 at 16:29
--- NOTE | 2025-05-06 08:51 | PC.NURSE ---
Nursing Note Cardiac Stress Test Reviewed: Medication, allergies and patient history reviewed. Stress Test: [x ] Patient tolerated stress test well. [ ] Patient unable to tolerate walking on treadmill. Switched to Lexiscan stress test. [x ] No chest pain noted per patient [ ] Chest pain that resolved prior to leaving stress lab. [x ] No dyspnea noted. [ ] Dyspnea that resolved prior to leaving stress lab. [x ] Patient left stress lab asymptomatic and hemodynamically stable. [ ] Patient taken to the Emergency Room due to non-resolving symptoms following stress test. [ ] Patient achieved target heart rate. [ ] Patient unable to achieve target heart rate. [ ] Aminophylline administered as reversal agent to Lexiscan (Regadenoson). [ ] Nitro administered. Nursing Comments:Pt had Lexiscan test done. Pt had generalized heaviness that resolved within 3 minutes of rest after cassie. Pt had no chest pain and no SOB. Ambulated to cafeteria for breakfast prior to second set of images.
[2025-05-06] MEDS: REGADENOSON 0.4 MG/5 ML SYRINGE IV (08:52)
--- NOTE | 2025-05-06 10:15 | CA_ITS ---
Patient Name: ASAD BOND MR#: [id number] : 1950 Exam Date: 05/06/2025 Ordering Doctor: DR JUAN CARLOS POTTER M.D. ECHOCARDIOGRAM REPORT PROCEDURE: CA ECHO DOPPLER COMPLETE INDICATIONS: Chest pain, hypertension COMPARISON: None. DESCRIPTION: COMPLETE ECHOCARDIOGRAM Real-time transthoracic echocardiography with 2D, M-mode, spectral and color flow Doppler performed. QUALITY: Technical quality was good. LEFT VENTRICLE: Normal chamber size. Borderline left ventricular hypertrophy. LV EF: Global left ventricular systolic function is normal. Calculated left ventricular ejection fraction is 63%. No significant wall motion abnormalities. DIASTOLIC: Normal diastolic function. ATRIAL SEPTUM: Visually appears intact. LEFT ATRIUM: Normal chamber size. RIGHT ATRIUM: Mild dilatation. RIGHT VENTRICLE: Normal chamber size. Normal right ventricular systolic function. TRICUSPID VALVE: Normal mobility and thickness. Moderate regurgitation. No evidence of pulmonary hypertension. RVSP 30mmHg. MITRAL VALVE: Normal mobility and thickness. No evidence of mitral valve stenosis. There is no mitral annular calcification. Trivial mitral regurgitation. AORTIC VALVE: Normal trileaflet appearance. No visible sclerosis. Normal leaflet mobility. No evidence of aortic valve stenosis. Mild aortic regurgitation. AORTIC ROOT: Normal diameter and appearance. PULMONIC VALVE: Normal thickness and mobility. No stenosis. Trivial regurgitation. PERICARDIUM: No evidence of pericardial effusion. IVC: Collapses with inspiration. Normal size. CONCLUSION: 1. Global left ventricular systolic function is normal; visually estimated ejection fraction is 60 to 65% 2. Normal right ventricular size and systolic function 3. Normal left ventricular hypertrophy 4. Normal diastolic function 5. The right atrium is mildly dilated 6. Moderate tricuspid regurgitation 7. Mild aortic regurgitation Adult Echocardiography Procedure Report Left Ventricle LVEDD (3.7 - 5.6 cm): 4.56 cm LVESD (2.2 - 4.0 cm): 3.05 cm LVIVS thickness (0.6 - 1.2 cm): 1.22 cm LVPW thickness (0.5 - 1.0 cm): 1.09 cm e': 0.10 m/s E - e': 5.53 LVOT Max Gradient: 2.60 mm[Hg] LVOT Area (cm2): 0.81 m/s Peak Velocity (LVOT): 0.81 m/s Mean Velocity (LVOT): 0.48 m/s LVOT Diameter 2.19 cm Left Ventricular Ejection Fraction: 63.10 % Left Atrium LA Volume Index (2D A2C): 35.54 ml/m2 Left Atrium Systolic Dimension: 4.30 cm Mitral Valve MV E to A Ratio: 0.75 Mitral Valve A-Wave Peak Velocity: 0.76 m/s Mitral Valve E-Wave Peak Velocity: 0.57 m/s Right Ventricle RV Internal Diastolic Dimension: 3.41 cm Aorta AO Root Diam: 2.90 cm Ascending Ao Diam: 3.28 cm Aortic Valve AoV Area (Peak Ananda): 2.79 cm2, 2.79 cm2 AoV Area (VTI): 2.61 cm2, 2.61 cm2 Deceleration [place]: 1.67 m/s2 Pressure Half-Time: 620.31 ms Peak Velocity(Antegrade Flow): 1.09 m/s Peak Gradient(Antegrade Flow): 4.78 mm[Hg] Mean Velocity(Antegrade Flow): 0.68 m/s Mean Gradient(Antegrade Flow): 2.21 mm[Hg] Velocity Time Integral: 23.62 cm Tricuspid Valve Peak Velocity (Regurgitant Flow): 2.61 m/s, 2.42 m/s, 2.46 m/s, 2.48 m/s Pulmonic Valve Mean Gradient: 1.60 mm[Hg], 2.00 mm[Hg] Mean Velocity: 0.58 m/s, 0.65 m/s Peak Velocity: 0.97 m/s Peak Gradient: 3.21 mm[Hg], 4.39 mm[Hg] Right Atrium Right Atrium Systolic Pressure: 39.58 ml, 39.58 ml Dictated by: Alejo Wallace M.D. on 05/06/2025 at 16:00 Approved by: Alejo Wallace M.D. on 05/06/2025 at 16:03
--- NOTE | 2025-05-06 15:31 | PM.STRESS ---
Stress Test Stress Test Allergies Allergy/AdvReac Type Severity Reaction Status Date / Time No Known Drug Allergies Allergy Verified 06/22/24 12:08 Requesting physician: JUAN CARLOS POTTER Procedure: Lexiscan stress test General Information: Reason for Stress Test: [CAD, fatigue, dizziness] Cardiac History and Risk Factors: [CAD, CABG, HTN, dyslipidemia] Resting 12 - Lead Electrocardiogram: Marked sinus bradycardia Abnormal EKG Stress Test: Protocol: [Lexiscan] Exercise Capacity: [N/A] Blood Pressure Response: [N/A] Rhythm: [Sinus bradycardia] ST - Response: [No significant ST T wave abnormalities] Patient Response: [No chest pain] Interpretation: 1. No ischemic EKG changes on Lexiscan stress test 2. Nuclear images to be read, interpreted and reported seperately
== END 2025-05-06 06:22 | disposition home or self-care (01) ==
PROVIDERS: PCP Family Medicine; Visit Provider Internal Medicine Interventional Cardiology
DX: I25.118 Atherosclerotic heart disease of native coronary artery with other forms of angina pectoris (principal); I10 Essential (primary) hypertension; I51.7 Cardiomegaly
CPT/HCPCS: 78452; 93017; 93306; A9500; J2785

== ENCOUNTER 2025-08-23 06:21 | Outpatient (OUT) | payer MEDICARE, OTHER, SELFPAY ==
--- OUTSIDE RECORDS SUMMARY | 2024-11-10 03:30 | XMS_ITS ---
Author Organization [facility] in [place] Address [address] [place] [address] Care Team Providers Care Jewelry Enameler Name Role Phone Fco Salas Primary Care Provider [phone] Miri Simmons [phone] Allergies Allergen (clinical drug ingredient) Drug/Non Drug Allergy documented on EMR Reaction Allergy Type Onset Date Status amoxicillin / clavulanate Augmentin Nausea , Blurry Vision, Fluid Retention Drug Allergy Active REASON FOR VISIT Coronary artery disease Social History Tobacco Use: Social History Observation Description Date Details (start date - stop date) Former Smoker NA - 03/16/1995 Tobacco Use/Smoking Question Answer Notes Patient is a former smoker When did you stop smoking?03/16/1995How long has it been since you last smoked?> 10 years Encounters Encounter Location Date Provider Diagnosis Cardiology [facility] [address] [facility] [place] [address] 11/10/2024 Miri Simmons Coronary artery dise ase involving [place] coronary artery of [place] heart without angina pectoris I25.10 ; Atypical chest pain R07.89 ; H/O two vessel coronary artery bypass graft Z95.1 ; H/O: hypertension Z86.79 ; Right ventricular dysfunction I51.9 ; Hyperlipidemia, unspecified hyperlipidemia type E78.5 ; LVH (left ventricular hypertrophy) I51.7 ; IVCD (intraventricular conduction defect) I45.4 and Sinus bradycardia R00.1 Assessments Encounter Date Diagnosis (ICD Code) Assessment Notes Treatment Notes Treatment Clinical Notes Section Notes 11/10/2024 Coronary artery dise ase involving [place] coronary artery of [place] heart without angina pectoris (ICD-10 - I25.10) STEMI (12/30) inferoposterior wall; asymptomatic, with PLVSF; Exi/cassie c-lite 04/2022 no ischemia, EF 51%, March 2023 11/10/2024typical chest pain (ICD-10 - R07.89)resolved without recurrence 11/10/2024H/O two vessel coronary artery bypass graft (ICD-10 - Z95.1)12/19/15 SVG/OM-SVG/RCA11/10/2024H/O: hypertension (ICD-10 - Z86.79)11/10/2024Right ventricular dysfunction (ICD-10 - I51.9)11/10/2024Hyperlipidemia, unspecified hyperlipidemia type (ICD-10 - E78.5)11/10/2024LVH (left ventricular hypertrophy) (ICD-10 - I51.7)mild11/10/2024IVCD (intraventricular conduction defect) (ICD-10 - I45.4)11/10/2024Sinus bradycardia (ICD-10 - R00.1)well llfeiyuyi62/25/2025 OtherCounseling was provided regarding healthy eating habits. Continue low cholesterol diet, low salt diet, and exercise program. Plan Of Treatment Treatment Notes Assessment Notes Other Counseling was provi ded regarding healthy eating habits. Continue low cholesterol diet, low salt diet, and exercise program. Progress Notes * Levon ROACH CDOB:12/1949 (75 yo M)Acc No.[id number]:11/10/2024 UNLOCKED PROGRESS NOTE Progress Note Patient: Levon CHRISTENSEN :?Miri Simmons NP-CDOB:1950???Age:74 Y ???Sex:MaleDate:11/10/2024Phone:[phone]:[address] [place], [place] [id number]:Fco Salas Subjective: * Chief Complaints: * 1 . Coronary artery disease. * HPI: ???Cardio Visit:?Visit For?Follow-up.?Tolerating Medication?Yes.?Patient Complaining of:?No Symptoms.?Patient Denies:?Chest pain, SOB/MCCRAY/Orthopnea/PND, Palpitations, Light headedness/Presyncope/Syncope/Fainting, LE Edema.? * ROS: ???General/Constitutional:?Denies?Fatigue.?Denies?Fever.?Cardiovascular:?Denies?Edema.?Denies?Leg pain with walking/exercise.?Denies?Chest pain at rest.?Denies?Chest pain with exertion.?Denies Palpitations.?Respiratory:?Denies?PND.?Denies?Orthopnea.?Denies?Dry cough.?Denies?Shortness of breath at rest.?Denies?Shortness of breath with exertion.?Gastrointestinal:?Denies?Blood in stool.?Musculoskeletal:?Denies?Myalgia.?Denies?Weakness of muscles.?Denies?Muscle aches.?Neurologic:?Denies?Numbness.?Denies?Syncope.?Denies Dizziness.?Denies?Memory difficulties.?Denies?Stroke.? * Medical History: H istory of Hypertension, History of Hyperlipidemia, History of Bradycardia, History of Coronary Artery Disease, History of Left Ventricular Hypertrophy, History of Insomnia, History of right ventricular dysfunction, History of intraventricular conduction defect, Acute sinusitis, Ganglion, other site, Low back pain, unspecified, Epididymitis, right, Altered mental status, unspecified, Ganglion cyst, Nevus, Acute recurrent frontal sinusitis, Claudication, intermittent, Vertigo, peripheral, Encounter for routine adult medical examination, Sebaceous cyst, Benign hypertrophy of prostate, Nocturia, Irritable bowel syndrome, Peyronie's disease, Ankle pain, RA (rheumatoid arthritis), Fibromyalgia, Other symptoms referable to back, Anxiety, Essential (primary) hypertension, Coronary artery disease involving [place] coronary artery of [place] heart without angina pectoris. * Surgical History: H eart Cath 12/19/2015 , CABG SV-OM; SV-RCA 12/19/2015 , Right tib fib ORIF with bone graft , IM rodding rt tib fib , cervical laminectomy , bilat carpal tunnel , skin flap from back to rt tib fib , 2 cysts from back removed , Lt shoulder arthroscopy, complex RCR, capsular release Santy May 04/01/18, Right Total Knee Arthroplasty-Santy Whitaker MD 09/20/2020, Left Total Knee Replacement- 11/2023, Excisional Biopsy Cyst Right Wrist 10/13/24. * Hospitalization/Major Diagno stic Procedure: S ee Above . * Family History: F ather: , stroke, diagnosed with Heart Disease. M other: , diagnosed with Heart Disease. B rother(s): alive, diagnosed with Heart Disease. Other brother has stents. * Social History: ???Tobacco Use:?Tobacco Use/Smoking?Patient is a?former smoker ?When did you stop smoking??03/16/1995 ?How long has it been since you last smoked? > 10 years * Allergies: A ugmentin: Nausea, Blurry Vision, Fluid Retention. Objective: * Vitals: * Examination: ???General Examinations: ?GENERAL APPEARANCE:?in no acute distress, well developed, well nourished.?EYES:?The conjunctiva exhibited no abnormalities.?ABDOMEN:?soft, non-tender.?MUSCULOSKELETAL:?No tenderness on palpation of the calf, bilateral.?SKIN:?No diaphoresis.?NEUROLOGIC:?Oriented to time person and place.?Cardiovascular: ?JUGULAR VENOUS DISTENTION:?not increased.?CAROTID BRUIT:?no bruit, bilateral.?LUNGS:?clear throughout all lung dodd and non-labored. ?HEART RATE AND RHYTHM:?regular.?HEART SOUNDS:?normal and no pericardial friction rub was heard.?GALLOP:?none heard.?MURMURS:?none heard.?ARTERIAL PULSES:? 2+ dorsalis pedis pulses, 2+ posterior tibial pulses.?EDEMA:?none.? Assessment: * Assessment: 1.?Coronary artery disease involving [place] coronary artery of [place] heart without angina pectoris - I25.10 (Primary)???Notes :STEMI (12/30) inferoposterior wall; asymptomatic, with PLVSF; Exi/cassie c-lite 04/2022 no ischemia, EF51%, March 2023???2.?Atypical chest pain - R07.89???Notes :resolved without recurrence ???3.?H/O two vessel coronary artery bypass graft - Z95.1???Notes :12/19/15 SVG/OM-SVG/RCA???4.?H/O: hypertension - Z86.79???5.?Right ventricular dysf unction - I51.9???6.?Hyperlipidemia, unspecified hyperlipidemia type - E78.5&#16 0;??7.?LVH (left ventricular hypertrophy) - I51.7???Notes :mild???8.?IVCD (intraventricular conduction defect) - I45.4???9. Sinus bradycardia - R00.1???Notes :well tolerated??? Plan: * Treatment: Notes:Counseling was provided regarding healthy eating habits. Continue low cholesterol diet, low salt diet, and exercise program.?? * Preventive Medicine: ??Screenings/Counseling:?BP FOLLOW-UP?PHYSICAL ACTIVITY RECOMMENDATION:?Recommendation to exercise ?DIETARY RECOMMENDATIONS:?Low fat diet education & Low Salt Diet ?FALL RISK SCREENING?Fall Risk Assessment:?No falls in the past year * * Electronic signature of Miri Simmons NP, [id number] on 08/23/2025 at 06:26 AM ESTSign off status: PendingVisit Status:?CANC (Cancelled) * Provider: ESTEFANIA Hawkins Date: 0 11/10/2024 Generated for Printing/Faxing/eTransmitting on:?08/23/2025 06:26 AM EST History and Physical Notes * HPI (History of Present Illness) CategorySub-CategoryDetailNotesCategory NotesCardio VisitVisit ForFollow-up Patient Denies:Chest pain, SOB/MCCRAY/Orthopnea/PND, Palpitations, Light headedness/Presyncope/Syncope/Fainting, LE EdemaTolerating MedicationYesPatient Complaining of:No Symptoms Examination CategorySub-CategoryDetailNotesCategory NotesGeneral ExaminationsGENERAL APPEARANCE:in no acute distress, well developed, well nourishedEYES:The conjunctiva exhibited no abnormalitiesABDOMEN:soft, non-tenderNEUROLOGIC: Oriented to time person and placeSKIN:No diaphoresisMUSCULOSKELETAL:No tenderness on palpation of the calf, bilateralCardiovascularCAROTID BRUIT:no bruit, bilateralHEART SOUNDS:normal and no pericardial friction rub was heard MURMURS:none heardGALLOP:none heardJUGULAR VENOUS DISTENTION:not increasedHEART RATE AND RHYTHM:regularARTERIAL PULSES:2+ dorsalis pedis pulses, 2+ posterior tibial pulsesEDEMA:noneLUNGS:clear throughout all lung dodd and non-labored
--- OUTSIDE RECORDS SUMMARY | 2025-01-21 03:45 | XMS_ITS ---
Author Organization The [facility] in [place] Address [address] [place] [address] Care Team Providers Care Supervisor Shed Workers Name Role Phone Fco Salas Primary Care Provider REASON FOR VISIT fatigue Encounters Encounter Location Date Provider Diagnosis [facility] [address] [place] [address] 01/21/2025 Fco Salas Plan Of Treatment No Information Progress Notes * Levon ROACH CDOB:12/1949 (75 yo M)Acc No.[id number]:01/21/2025 UNLOCKED PROGRESS NOTE Progress Note Patient: Deep HUTCHINS Levon Natalia :?Ruddy Salas (TTC), MDDOB:1950???Age: 74 Y???Sex:MaleDate:01/21/2025Phone:[phone]:[address] [place], [place] [address] Subjective: * Chief Complaints: * 1 . Fatigue. * Medical History: Objective: * Vitals: Assessment: Plan: * Treatment: * * Electronic signature of Fco Salas MD, [id number] on 08/23/2025 at 06:26 AM EST Sign off status: PendingVisit Status:?CANCPHONE (Cancelled Phone) * Provider: Yadira Salas MD (TTC) Date: 0 01/21/2025 Generated for Printing/Faxing/eTransmitting on:?08/23/2025 06:26 AM EST
--- OUTSIDE RECORDS SUMMARY | 2025-08-23 06:26 | XMS_ITS | Clinical Summary ---
Author Organization [facility] Address [address] [place] [address] Care Team Providers Care Escrow Clerk Name Role Phone Ruddy Salas MD Primary Care Provider [phone] Allergies No known active allergies Medications MedicationSigDispense QuantityRefillsLast FilledStart DateEnd DateStatus aspirin 81 mg EC tablet in the morning.Active oxyCODONE-acetaminophen (Percocet) 5-325 mg tablet oxycodone-acetaminophen 5 mg-325 mg tablet TAKE 1 TABLET BY MOUTH THREE TIMES DAILY NEEDED FOR 7 DAYSActive traZODone (Desyrel) 100 mg tablet trazodone 100 mg tablet TAKE 1 & 1 2 (ONE & ONE HALF) TABLETS BY MOUTH AT BEDTIMEActive cetirizine (ZyrTEC) 10 mg tablet Take 10 mg by mouth in the morning.Active sildenafil (Viagra) 100 mg tablet Take 100 mg by mouth if needed.02/10/2023ctive HYDROcodone-acetaminophen ([place]) 5-325 mg tablet Take 1 tablet by mouth if needed each day.Active nitroglycerin (Nitrostat) 0.4 mg SL tablet Indications:Coronary artery disease involving [place] coronary artery of [place] heart with other form of angina pectorisPlace 1 tablet (0.4 mg) under the tongue every 5 (five) minutes if needed for chest pain. 90 tablet 5Active ezetimibe (Zetia) 10 mg tablet Indications:Coronary artery disease involving [place] coronary artery of [place] heart with other form of angina pectorisTake 1 tablet (10 mg) by mouth at bedtime. 90 tablet /6Active metoprolol succinate XL (Toprol-XL) 25 mg 24 hr tablet Indications:Benign hypertensive heart disease with heart failure (CMS/HCC)Take 0.5 tablets (12.5 mg) by mouth once daily as directed. Do not crush or chew. 45 tablet tive atorvastatin (Lipitor) 40 mg tablet Indications:Coronary artery disease due to lipid rich plaqueTake 1 tablet (40 mg) by mouth in the morning. 90 tablet 5006/04/2026ctive Active Problems ProblemNoted DateDiagnosed DwngTfnymhg69/11/2025PH (benign prostatic hyperplasia)04/26/2025hronic cough04/26/2025Dysfunction of right cardiac hnmytdytf32/11/2025Encounter for fitting and adjustment of hearing aid04/26/2025 History of myocardial xauaefximz35/11/1843Towewtjvicwx87/11/2025Intermittent fstxfbvmrczi39/11/2025Intraventricular conduction hycqlh2204/26/2025Irritable bowel fugtjwah79/11/2025Left ventricular wexcevrdsbe51/11/2025Lumbar wyrhedorbypsq38/11/2025Mood kyznic4904/26/2025 Overview (04/26/2025): on librium Bjrebveibieujf32/11/2025Sensorineural hearing loss, bdszotikx79/11/2025Sinus olwjlpnbsuc10/11/2025Subcutaneous nodule of right hand04/26/2025Knee joint stiffness, jrtjtzxoy03/26/2024resence of artificial knee joint, left12/10/2023 Nausea and kjlmvjti47/06/2024Left knee pain11/18/2023ge-related nuclear cataract of both eyes06/03/2023omplete tear of left rotator cuff06/03/2023 Isbqcxdepggw91/18/5738Vfjlkmiikfguss67/18/9908Pazqdxaacoc67/18/2023Occlusion of coronary artery bypass graft06/03/20238082Xrqvwzagto78/18/2023rimary osteoarthritis of left qnsutdup41/18/2023rolonged emergence from general pqfcaznucl15/18/2023 Overview (04/26/2025): after one surgery 1983 Localized osteoarthritis of right knee09/20/2020History of coronary artery bypass oxyvdzx6607/29/2020Coronary nriknjajyohdwtwg41/20/2019 Encounters DateTypeDepartmentCare OarmIvyilurxeyh18/19/2025[facility] [address] [place] [address] Britney Trejo MA Coronary artery disease due to lipid rich plaque (Primary Dx)from Last 3 Months Family History Medical HistoryRelationNameCommentsHeart attackFatherHeart attackMotherRelation NameStatusCommentsFatherDeceasedMotherDeceased Social History Tobacco UseTypesPacks/DayYears UsedDateSmoking Tobacco: FormerCigarettes Smokeless Tobacco: Never Tobacco Cessation:Counseling Given: Not Answered Alcohol UseStandard Drinks/WeekCommentsNever0 (1 standard drink = 0.6 oz pure alcohol)PHQ-2AnswerDate RecordedPatient Health Questionnaire-2 E[address]051 [place] Safety & EnvironmentAnswerDate RecordedFear of Current or Ex-PartnerNot on file11/07/2023Emotionally AbusedNot on file11/07/2023hysically AbusedNot on file11/07/2023Sexually AbusedNot on 11/07/2023hysically or Sexually Abused Not on file11/07/2023Sex and Gender InformationValueDate RecordedSex Assigned at DgcbyEfkj74/06/2025 9:15 AM EDTLegal ZagPyyp9203/14/2022 9:13 PM EDTGender SwoilaqbApvr22/06/2025 9:15 AM EDTSexual OrientationHeterosexual or Straight 04/21/2025 9:15 AM EDT Last Filed Vital Signs Vital SignReadingTime TakenCommentsBlood Slalnqbl651/7304/26/2025 1:50 PM EDT Cccoc029504/26/2025 1:50 PM EDTTemperature--Respiratory Rate--Oxygen Ovmjrcjoew23% 04/26/2025 1:50 PM EDTInhaled Oxygen Concentration--Htpmko82.3 kg (155 lb) 04/26/2025 1:50 PM QWHNskmyb715.7 cm (5' 8 )04/26/2025 1:50 PM EDTBody Mass Index23.5708 1:50 PM EDT Plan of Treatment DateTypeDepartmentCare Team (Latest Contact Info)Armemnlzejg40/19/2025 1:45 PM ESTOffice Visit [facility] [address] [place] [phone] Keith Tapia MD [address] [facility] [address] [facility] [place] [address] Health MaintenanceDue DateLast DoneCommentsCT Cgnywuwwtcfm1950Colonoscopy 1950Colorectal Cancer Tlccgebxl1950FIT-DNA1950FIT1950 FOBT1950Medicare Annual Wellness (AWV)06/19/19509252Rpareqerhxnwr1950 Depression Avixpmrqb86/04/1962Zoster Vaccines (1 of 2)2000Fall Risk Sgsoihgux72/04/2015Pneumococcal Vaccine: 50+ Years (2 of 2 - PCV)05/20/2018 05/20/2017, 01/04/2017Influenza Vaccine (#1), 06/13/2021, 07/13/2020, Additional history existsCOVID-19 Vaccine ( season) , 09/20/2022, 02/01/2022, Additional history existsAdult Kwoybky99/28/HIB VaccinesAged OutNo longer eligible based on patient's age to complete this topicHPV VaccinesAged OutNo longer eligible based on patient's age to complete this topicIPV VaccinesAged OutNo longer eligible based on patient's age to complete this topicMeningococcal B VaccineAged OutNo longer eligible based on patient's age to complete this topicMeningococcal VaccineAged OutNo longer eligible based on patient's age to complete this topic Rotavirus VaccinesAged OutNo longer eligible based on patient's age to complete this topic Insurance Care Teams Team MemberRelationshipSpecialtyStart DateEnd Ruddy Salas MD [address] [place] [address] PCP - [facility]04/20/25
--- OUTSIDE RECORDS SUMMARY | 2025-08-23 06:26 | XMS_ITS | Clinical Summary ---
Author Organization [facility] Address [id number] [place] [address] Care Team Providers Care Crew Foreman Name Role Phone Ruddy Salas MD Primary Care Provider [phone] Allergies No known active allergies Medications MedicationSigDispense QuantityRefillsLast FilledStart DateEnd DateStatus traZODone (DESYREL) 50 mg tablet Take 1 tablet (50 mg total) by mouth nightly.Active nitroglycerin (NITROSTAT) 0.[address] 1 tablet (0.4 mg total) under the tongue every 5 (five) minutes as needed for chest pain. Please make appt for future refills 25 tablet 04/25/2020Active Additional Information Patient not taking.Reported on 11/19/2023 atorvastatin (LIPITOR) 40 mg tablet Indications:Coronary artery disease involving [place] coronary artery of [place] heart without angina pectorisTake 1 tablet by mouth once daily 30 tablet 07/04/2020Active sildenafiL (VIAGRA) 100 mg tablet Take 1 tablet (100 mg total) by mouth as needed.02/10/2023ctive metoprolol succinate XL (TOPROL XL) 25 mg 24 hr tablet Take 0.5 tablets (12.5 mg total) by mouth in the morning.01/21/2023ctive aspirin 81 mg Take 1 tablet (81 mg total) by mouth in the morning and 1 tablet (81 mg total) before bedtime.11/18/2023ctive ondansetron ODT (ZOFRAN ODT) 4 mg disintegrating tablet Dissolve 1 tablet (4 mg total) on tongue every 8 (eight) hours as needed for nausea or vomiting. 20 tablet 11/20/2023ctive Active Problems ProblemNoted DateDiagnosed IyjhSzfsahqtvatd30/06/2024Nausea and vomiting 11/20/2023Left knee pain, unspecified ctojnzdbrt97/04/2024oronary artery disease involving [place] coronary kvwabw8404/10/2019 Immunizations ImmunizationAdministration DatesNext ZdqHery9001/12/2020 Family History Medical HistoryRelationNameCommentsStrokeMotherRelationNameStatusCommentsMother Social History Tobacco UseTypesPacks/DayYears UsedDateSmoking Tobacco: FormerSmokeless Tobacco: NeverAlcohol UseStandard Drinks/WeekCommentsNo0 (1 standard drink = 0.6 oz pure alcohol)[facility] UtilitiesAnswerDate RecordedIn the past 12 months has the electric, gas, oil, or water [employer] threatened to shut off services in your home?No 11/19/2023UDIT-CAnswerDate RecordedFrequency of Alcohol ConsumptionNever 07/10/2018Average Number of DrinksNot on file07/10/2018Frequency of Binge DrinkingNot on file07/10/2018PRAPARE - TransportationAnswerDate RecordedIn the past 12 months, has lack of transportation kept you from medical appointments or from getting medications?No11/19/2023In the past 12 months, has lack of transportation kept you from meetings, work, or from getting things needed for daily living?No11/19/2023Housing InstabilityAnswerDate RecordedAre you worried or concerned that in the next two months you may not have stable housing that you own, rent or stay in as a part of a household?No11/19/2023hildcareAnswer Date QcxszzaiGzfhfflxvPuzimmw37/12/2019EmploymentAnswerDate RecordedEmployment Xgsfxpe6202/25/2019Hunger ScreeningAnswerDate RecordedWithin the past 12 months we worried whether our food would run out before we got money to buy more.Never True11/19/2023Within the past 12 months the food we bought just didn't last and we didn't have money to get more.Never True11/19/2023urpose - LifeAnswerDate RecordedPurpose and direction in zapgRbdjhhu04/18/2021ex and Gender Information ValueDate RecordedSex Assigned at OzhoiUcvf65/25/2022 3:27 PM EDTLegal SexMale 04/21/2015 11:29 AM EDTGender YahgchlkTuoz69/25/2022 3:27 PM EDTSexual YjjnpesqfjeRxflahwh54/25/2022 3:27 PM EDT Last Filed Vital Signs Vital SignReadingTime TakenCommentsBlood Bbwmwmdn871/62011/21/2023 8:47 AM EST Iparu769911/21/2023 8:47 AM DGKPeutjayzlfh07.6 ??C (97.9 ??F)11/21/2023 8:47 AM ESTRespiratory Pjqh675511/21/2023 8:47 AM ESTOxygen Raznewhsew23%11/21/2023 8:47 AM ESTInhaled Oxygen Concentration--Rtsypy05.9 kg (160 lb 11.2 oz)11/21/2023 5:09 AM FMIItdxnp687 cm (5' 7.72 )11/19/2023 8:56 AM ESTBody Mass Index24.64 11/19/2023 8:56 AM EST Plan of Treatment Health MaintenanceDue DateLast DoneCommentsDepression Tzcymyvrz45/04/1962Zoster (Shingles) Vaccine (1 of 2)2000Abdominal Aortic Aneurysm (AAA) Screen 2015Fall Risk Yleujpwim42/04/2015Tobacco Aejthryra62 COVID-19 Vaccine ( season), 02/01/2022, 07/31/2021, Additional history existsInfluenza Wykhjhj61/, 06/13/2021, 07/13/2020, Additional history existsRSV ( or age 60+ yrs) (1 - 1-dose 75+ series)2025DTaP,Tdap and Td Vaccines (2 - Td or Tdap) Goals GoalPatient Goal TypeAssociated ProblemsRecent ProgressPatient-Stated?Author home Pamela Rosenbaum LSW Note: Evaluation of progress towards goal: will have therapy evaluation later today or in a.m. Medical Devices ImplantedTypeAreaManufacturerDevice IdentifierShelf Expiration DateModel / Serial / LotCement Bn Bio 40gm Rpl [id number] - [id number] Implanted:Qty: 2 on 11/19/2023 by Keith Alas Jr., DO at [facility] [id number] / NA / [id number] Ptlr 35mm Persona Alply Kn Strl Lf - Sna - [id number] Implanted:Qty: 1 on 11/19/2023 by Keith Alas Jr., DO at [facility] Wpdpnq8808/10/2028 [id number] / NA / [id number] Fem E Kn Lt Cmnt Nxgn Lpsflx Opt Zml Prlng Strl Rpl [id number] + [id number] - Sna - [id number] Implanted:Qty: 1 on 11/19/2023 by Keith Alas Jr., DO at [facility] Bfhrvf2108/12/2033 [id number] / NA / [id number] Artc 5-6 E-F 10mm Kn Fx Brng Prlng Nxgn Lpsflx Strl Rpl [id number] + [id number] - Sna - [id number] Implanted:Qty: 1 on 11/19/2023 by Keith Alas Jr., DO at [facility] Urveat9307/19/2028 [id number] / NA / [id number] Tib 82l44oy Nxgn Kn Cmnt Mdlr Stm Prect 5 Tiv Pmma Rpl [id number] + [id number] - Sna - [id number] Implanted:Qty: 1 on 11/19/2023 by Keith Alas Jr., DO at [id number] / NA / [id number]whGilbli IdentifierShelf Expiration DateModel / Serial / LotScrew Gd 48mm Qd-Spr Hex Hd Mis Strl - Sna - [id number] Explanted:Qty: 1 on 11/19/2023 by Keith Alas Jr., DO at [facility] [id number] / NA / [id number] Gd 48mm Qd-Spr Hex Hd Mis Strl - Sna - [id number] Explanted:Qty: 1 on 11/19/2023 by Keith Alas Jr., DO at [facility] [id number] / NA / [id number] Bn 35mm 6.5mm St Hip Actb Trlg Strl Rpl [id number] - Sna - [id number] Explanted:Qty: 2 on 11/19/2023 by Keith Alas Jr., DO at [facility] Xcmbml47/12/[id number] / NA / [id number] Insurance Advance Directives * Full Code (Latest Code Status on File) Date ActivatedDate InactivatedComments11/20/2023 2:43 PM11/21/2023 1:49 PM * Full Code Date ActivatedDate InactivatedComments11/18/2023 8:29 PM11/18/2023 8:33 PM Care Teams Team MemberRelationshipSpecialtyStart DateEnd Ruddy Salas MD PCP - [facility]05/12/18
--- OUTSIDE RECORDS SUMMARY | 2025-08-23 06:26 | XMS_ITS | Clinical Summary ---
Author Organization [facility] Address [address] [place] [id number] Care Team Providers Care Racking Machine Operator Name Role Phone Ruddy Salas MD Primary Care Provider [phone] Allergies No known active allergies Medications MedicationSigDispense QuantityRefillsLast FilledStart DateEnd DateStatus cetirizine (ZyrTEC) 10 MG chewable tablet Chew 10 mg in the morning.07/11/2022ctive HYDROcodone-acetaminophen ([place]) 5-325 MG tablet 1-2 tablets Orally every 4 hrs prn pain not to exceed 8 in 24 hoursActive aspirin 81 MG EC tablet Take 1 tablet by mouth in the morning.Active atorvastatin (Lipitor) 40 MG tablet TAKE 1 TABLET BY MOUTH ONCE DAILY FOR 90 DAYSActive traZODone (Desyrel) 100 MG tablet TAKE 1 & 1 2 (ONE & ONE HALF) TABLETS BY MOUTH AT BEDTIMEActive sildenafil (Viagra) 100 MG tablet Take 100 mg by mouth Daily as needed.02/10/2023ctive metoprolol succinate XL (Toprol-XL) 25 MG 24 hr tablet TAKE 1/2 (ONE-HALF) TABLET BY MOUTH ONCE DAILY WITH VJUONP0701/21/2023ctive nitroglycerin (Nitrostat) 0.[address] 1 tablet as needed by sublingual route.Active Active Problems ProblemNoted DateDiagnosed DateAcute pain of left knee12/10/2023resence of artificial knee joint, left12/10/2023Knee joint stiffness, uveesjfdt44/26/2024 Prolonged emergence from general wswqvgadgu90/18/2023 Overview (06/03/2023): after one surgery 1984 Primary osteoarthritis of left gfoxmtvn82/18/2023rimary osteoarthritis of left knee06/03/20232236Drzogienrm59/18/6087Bfwdbkyllhwqof38/18/2023Occlusion of coronary artery bypass graft06/03/2023Mixed zmhekbhbrwxdzk67/18/2023Hyperlipidemia 06/03/20230481Iieuodhilwpz69/18/3965Oloajgonygdb02/18/2023omplete tear of left rotator cuff06/03/20235905Ivfsbpkgt53/18/2023 Overview (06/03/2023): January 26, 2014 Entered By: DENA AKINS OD Comment: OD Rgqrbnhvpxc22/18/2023ge-related nuclear cataract of both eyes06/03/2023 Localized osteoarthritis of right knee09/20/2020AD (coronary artery disease) 09/20/2020History of coronary artery bypass hjvipyd7507/29/2020Coronary sxboocwoaeuxwscg23/20/2019Arteriosclerosis of coronary nberir9804/10/2019 Resolved Problems ProblemNoted DateDiagnosed DateResolved DateMood mrmlri54 Overview (06/03/2023): on librium Immunizations ImmunizationAdministration DatesNext DueInfluenza, Seasonal, Quadrivalent, Jitaeqyoaq64/24/2022Influenza, Cpqdxcbkdlx40/25/2017Influenza, injectable, quadrivalent, preservative free06/17/2017Influenza, trivalent, adjuvanted 06/13/2021,07/13/2020Pneumococcal Polysaccharide ZQRZ8504/12/2016,01/04/2017Tdap 01/12/2020 Family History Medical HistoryRelationNameCommentsHeart diseaseBrotherHypertensionBrotherHeart diseaseFatherHypertensionFatherDiabetesMotherHeart diseaseMotherHypertension MotherStrokeMotherMelanomaNeg HxRelationNameStatusCommentsBrotherFatherDeceased MotherDeceased Social History Tobacco UseTypesPacks/DayYears UsedDateSmoking Tobacco: FormerCigarettes Smokeless Tobacco: NeverAlcohol UseStandard Drinks/WeekCommentsNot Currently0 (1 standard drink = 0.6 oz pure alcohol)Sex and Gender InformationValueDate RecordedSex Assigned at BirthNot on fileLegal JypMsho4211/28/2022 6:40 PM EDT Gender IdentityNot on fileSexual OrientationNot on file Last Filed Vital Signs Vital SignReadingTime TakenCommentsBlood Wnulguuv599/75011/28/2017 12:00 PM EDT Pulse--Temperature--Respiratory Rate--Oxygen Saturation--Inhaled Oxygen Concentration--Syjydb10.9 kg (152 lb)10/23/2023 8:08 AM KZJEvuyzp183.7 cm (5' 8 )10/23/2023 8:08 AM ESTBody Mass Index23.11010/23/2023 8:08 AM EST Plan of Treatment DateTypeDepartmentCare Team (Latest Contact Info)Zchiwepishy15/02/2026 8:00 AM ESTOffice Visit [facility] [address] [place] [address] Dylan Chadwick, EXERCISE SCIENTIST [address] [place] [address] Insurance Care Teams Team MemberRelationshipSpecialtyStart Ruddy Salas MD [facility] - [facility]01/30/23
--- OUTSIDE RECORDS SUMMARY | 2025-08-23 06:26 | XMS_ITS | CCD ---
Author Organization [facility] Care Team Providers Care Television Servicer Name Role Phone PHYSICIAN, DEFAULT Unavailable Unavailable [...] NASH Primary Care Unavailable HOY ., DR ANSH Admitting Unavailable HOY ., DR NASH Attending [...] Unavailable HOY ., DR NASH Attending Unavailable WATERLOO, DR ANI Adame Consulting Unavailable HOY ., DR NASH Primary Care Unavailable HOY ., DR NASH Consulting Unavailable HOY ., DR NASH Admitting Unavailable HOY ., DR NASH Attending Unavailable HOY ., DR NASH Primary Care Unavailable HOY ., DR NASH Admitting Unavailable HOY ., DR NASH Attending Unavailable HOY ., DR NASH Consulting Unavailable Julio Cesary Charity CADET Primary Care Provider [phone] JUAN CARLOS ALAS JR Admitting UnavailJUAN CARLOS Nicolas JR Attending Unavailabl e HOY, CHARITY M Primary Care Unavailable RUDY VIRAMONTES Consulting Unavailable CHON WILKINSON Attending Unavailable ANNAMARIACHARITY M Primary Care Unavailable JUAN CARLOS ALAS JR Referring Unavailabl e HORonny, CHARITY M Primary Care Unavailable STEPDAMIEN JR, JUAN CARLOS Fisher Referring Unavailabl e HORonny, CHARITY M Primary Care Unavailable JUAN CARLOS ALAS JR Attending Unavailabl e STEPANIC JUAN CARLOS LORD Referring Unavailabl e ANNAMARIA, CHARITY M Primary Care Unavailable JUAN CARLOS ALAS JR Attending Unavailabl e STEPANIC JUAN CARLOS LORD Referring Unavailabl e ANNAMARIA, CHARITY M Primary Care Unavailable JUAN CARLOS ALAS JR Attending Unavailabl e STEPJUAN CARLOS QUEZADA JR Referring Unavailabl e ANNAMARIA, CHARITY M Primary Care Unavailable JUAN CARLOS ALAS JR Attending Unavailabl e JUAN CARLOS ALAS JR Referring Unavailabl sujata YIN, CHARITY M Primary Care Unavailable Annamaria Charity Primary Care Physician [phone] SANDRA BURR Attending Unavailable SANDRA BURR Referring [...] KAMALA, JUAN CARLOS Fisher Referring Unavaila ble SANDRA BURR Attending Unavailable SANDRA BURR Attending Unavailable BURRSANDRA Referring Unavailable WILIAN STERN Attending Unavailable BURR, SANDRA T Attending Unavailable NILL, Amadeo R Attending Unavailable NILL, Amadeo R Attending Unavailable NILL, Amadeo R Attending Unavailable NILL, Amadeo R Admitting Unavailable NILL, Amadeo R Attending Unavailable NILL, Amadeo R Attending Unavailable Annamaria CADET, Charity Ford Primary Care Provider [phone] JUAN CARLOS TAPIA Attending Unavailable Allergies Allergy ClassificationReported Allergen(s)Allergy TypeDate of OnsetReaction(s) Facility (5 sources)Amoxicillin / Clavulanate; Translations: [amoxicillin-clavulanate] Drug AllergyNausea, Blurry Vision, [facility]Mi[facility] [place] Medications Current Medications MedicationDrug Class(es)DatesSig (Normalized)Sig (Original)acetaminophen 325 mg / HYDROcodone bitartrate 5 mg oral tablet (20 sources)Opioid AgonistStart: 56-47-3276pufi 1 tablet by mouth four times daily as needed for painacetaminophen-hydrocodone 325 mg-5 mg oral tablet 1 tab(s), Oral, QID as needed for pain, Refill(s)0 Start Date: 09/07/24 Status: OrderedStart: 26-69-6065OOTQUkfnxqk-acetaminophen (NORCO) 5-325 MG per tablet 1 tablettake 1-2 tablets by mouth every four hours as needed for pain, then take 8 tablets by mouth every twenty-four hours as needed for painHYDROcodone- acetaminophen ([place]) 5-325 MG tablet 1-2 tablets Orally every 4 hrs prn pain not to exceed 8 in 24 hours Active End: 11-05-0341zfzs 1 tablet by mouth every six hours as needed for pain HYDROcodone-acetaminophen (NORCO) 5-325 mg per tablet Take 1 tablet by mouth every 6 (six) hours asneeded for pain. 0 Activeacetaminophen 325 mg / oxyCODONE hydrochloride 5 mg oral tablet (1 source)Opioid AgonistStart: 09-21-2020 End: 45-55-0996jhmi 1-2 tablets by mouth every four hours as needed for pain oxyCODONE-acetaminophen (PERCOCET) 5-325 MG per tablet Indications: Acute postoperative pain , Localized osteoarthritis of right knee Take 1-2 tablets by mouth every 4 hours as needed for Pain for upto 7 days. 50 tablet 0 09/21/2020 09/28/2020 Activealginic acid 200 mg / calcium carbonate 80 mg / magnesium trisilicate 20 mg / sodium bicarbonate 70mg oral tablet (1 source)Start: 88-93-4969vmuobto carbonate (TUMS) chewable tablet 500 mg aspirin 81 mg delayed release oral tablet (20 sources)Platelet Aggregation Inhibitor, Nonsteroidal Anti-inflammatory Drug Start: 94-47-7875cdfc 1 tablet by mouth once dailyaspirin 81 mg Oral EC Tab 81 mg = 1 tab(s), Oral, Daily, Refills(s) 0 Start Date: 09/07/24 Status: Ordered Start: 09-07-2024 End: 14-85-7602byrj 1 tablet by mouth once dailyaspirin 81 mg Oral EC Tab 81 mg = 1 tab(s), Oral, Daily, Refills(s) 0 Start Date: 09/07/24 Status: OrderedStart: 09-20-2020 End: 74-70-7218fagc 1 tablet by mouth twice dailyaspirin 325 MG EC tablet Take 1 tablet by mouth 2 times daily for 14 days 28 tablet 0 09/21/2020 10/05/2020 Activetake 1 tablet by mouth in the morningaspirin 81 MG EC tablet Take 1 tablet by mouth in the morning. Activeatorvastatin 40 mg oral tablet (20 sources)HMG-CoA Reductase InhibitorStart: 35-47-0546qhrg 1 tablet by mouth once dailyatorvastatin 40 mg Tab 40 mg = 1 tab(s), Oral, Daily, Refills(s) 0 Start Date: 09/07/24 Status: Orderedcetirizine hydrochloride 10 mg oral tablet (18 sources)Histamine-1 Receptor AntagonistStart: 10-44-9839blhg 1 tablet by mouth once dailycetirizine 10 mg Tab 10 mg = 1 tab(s), Oral, Daily, Refills(s) 0 Start Date: 09/07/24 Status: OrderedStart: 38-30-0009itilupbuia (ZyrTEC) 10 MG chewable tablet Chew 10 mg in the morning. 07/11/2022 ActivechlordiazePOXIDE hydrochloride 10 mg oral capsule (4 sources)BenzodiazepineStart: 63-74-2847dcnclpaafqEYXJUO (LIBRIUM) capsule 10 mgdocusate sodium 100 mg oral capsule (2 sources)Start: 27-26-4036xjcw 1 capsule by mouth twice dailydocusate sodium (COLACE) 100 MG capsule Take 1 capsule by mouth 2 times daily 30 capsule 0 09/21/2020 ActiveStart: 04-01-2018 End: 92-53-2068pqac 1 capsule by mouth twice dailydocusate sodium (COLACE) 100 MG capsule Indications: Complete tear of left rotator cuff Take 1 capsule by mouth 2 times daily 30 capsule 0 04/01/2018 09/01/2020 Discontinued (LIST CLEANUP)docusate sodium 50 mg / sennosides, group home 8.6 mg oral tablet (1 source)Start: 19-78-6228uzvt 1 tablet by mouth twice daily1 tablet, Oral, 2 TIMES DAILY, First dose on Sat09/20/20 at 1215, Post-opHYDROmorphone (DILAUDID) injection 0.25 mg (1 source)Start: 84-44-2863PGFBRyrsvgozo (DILAUDID) injection 0.25 mgmagnesium hydroxide 80 mg/ml oral suspension (1 source)Start: 05-22-0984ypbo 30 mL by mouth once daily as needed for bxglwzrwekcr19 mL, Oral, DAILY PRN, Constipation, Starting Sat09/20/20 at 1151 First line therapy for constipation. Post-op24 hr metoprolol succinate 25 mg extended release oral tablet (20 sources)beta-Adrenergic BlockerStart: 35-74-4551csobnptnor succinate 25 mg ER Tab 12.5 mg = 0.5 tab(s), Oral, Daily, Refills(s) 0 Start Date: 09/07/24 Status: OrderedStart: 48-83-6962giqj 0.5 tablet by mouth every twenty-four hours in the morningmetoprolol succinate XL (TOPROL XL) 25 mg 24 hr tablet Take 0.5 tablets (12.5 mg total) by mouth inthe morning. 0 01/21/2023 ActiveStart: .5 mg, Oral, DAILY WITH DINNER, First dose on Sat09/20/20 at 1730 Do not crush or chew. Hold for systolic blood pressure less than 100 or heart rate less than 50 Post-opmetoprolol succinate (TOPROL XL) 25 MG extended release tablet Take 12.5 mg by mouth Daily with supper 0 ActiveMisc. Devices (WALKER) MISC (1 source)Start: 15-17-9691Fibl. Devices (WALKER) MISC 1 each by Does not apply route daily 1 each 0 09/21/2020 Activenitroglycerin 0.4 mg sublingual tablet (20 sources)Nitrate VasodilatorStart: 80-06-3705cjlwktubattoe 0.4 mg sublingual Tab 0.4 mg = 1 tab(s), SubLingual, q5min, PRN for chest pain, Refills(s) 0 Start Date: 09/07/24 Status: OrderedStart: .4 mg, Sublingual, EVERY 5 MIN PRN, Chest pain, Starting Sat09/20/[address] 1 tablet under tongue upon chest pain, wait 5 minutes and may repeat up to 3 doses in 15 minutes. Do not crush or break. Post-opnitroglycerin (Nitrostat) 0.[address] 1 tablet as needed by sublingual route. Activeondansetron 4 mg oral tablet (2 sources)Serotonin-3 Receptor AntagonistStart: 32-59-6005vdmy 1 tablet by mouth every six hours as needed for nauseaondansetron (ZOFRAN) 4 MG tablet Take 1 tablet by mouth every 6 hours as needed for Nausea 30 tablet 1 09/21/2020 ActiveStart: 04-01-2018 End: 74-84-6276wemi 1 tablet by mouth every six hours as needed for nausea ondansetron (ZOFRAN) 4 MG tablet Indications: Complete tear of left rotator cuff Take 1 tablet by mouth every 6 hours as needed for Nausea 30 tablet 1 04/01/2018 09/01/2020 Discontinued (LIST CLEANUP)pantoprazole 40 mg delayed release oral tablet (2 sources)Proton Pump InhibitorStart: 09-21-2020 End: 21-49-5313eudq 1 tablet by mouth once daily before breakfastpantoprazole (PROTONIX) 40 MG tablet Take 1 tablet by mouth every morning (before breakfast) for 15days 15 tablet 1 09/22/2020 10/07/2020 ActivePromethazine (1 source)PhenothiazineStart: 08-95-1660ndbridlpftsp (PHENERGAN) tablet 12.5 mg sildenafil 100 mg oral tablet (19 sources)Phosphodiesterase 5 InhibitorStart: 46-69-5332jjaf 1 tablet by mouth once dailysildenafil 100 mg Tab 100 mg = 1 tab(s), Oral, Daily, Refills(s) 0 Start Date: 09/07/24 Status: Ordered3 ml sodium chloride 9 mg/ml injection (3 sources)Start: mL, Intravenous, EVERY 12 HOURS SCHEDULED (2 times per day), First dose on Sat09/20/20 at 2100, Post-opStart: 09-20-2020 Intravenous, at 125 mL/hr, CONTINUOUS, Starting Sat09/20/20 at 1215, Post-op Start: 57-61-5560fzno 10 mL intravenous route once10 mL, Intravenous, PRN, Line Care, Starting Sat09/20/20 at 1151 After every IV line use Post-optraZODone hydrochloride 100 mg oral tablet (20 sources)Serotonin Reuptake InhibitorStart: 49-09-2795wvuk 2 tablets by mouth once daily at bedtimetraZODONE 100 mg Tab 200 mg = 2 tab(s), Oral, Once a day (at bedtime), Refills(s) 0 Start Date: 09/07/24 Status: OrderedStart: 09-20-2020 take 150 mg by mouth once bobri907 mg, Oral, NIGHTLY, First dose on Sat09/20/20 at 2100, Post-optake 1 tablet by mouth at bedtimetraZODone (Desyrel) 100 MG tablet TAKE 1 & 1 2 (ONE & ONE HALF) TABLETS BY MOUTH AT BEDTIMEActivetake 1 tablet by mouth once dailytraZODone (DESYREL) 50 mg tablet Take 50 mg by mouth nightly. 0 ActivetraZODone (DESYREL) 100 MG tablet Take 150 mg by mouth nightly 0 Active Completed/Discontinued Medications MedicationDrug Class(es)DatesSig (Normalized)Sig (Original)acetaminophen 325 mg oral tablet (2 sources)Start: 09-20-2020 End: 07-16-0078sesy 650 mg by mouth every six hours, then take 4000 mg by mouth every twenty-four iebeb085 mg, Oral, EVERY 6 HOURS, First dose on Sat09/20/20 at 1200 Maximum dose of acetaminophen is 4000mg from all sources in 24 hours. Post-opStart: 09-20-2020 End: 76-50-3758qeeyztilwbytl (TYLENOL) tablet 1,000 mgcalcium chloride 0.0014 meq/ml / potassium chloride 0.004 meq/ml / sodium chloride 0.103 meq/ml / sodium lactate 0.028 meq/ml injectable solution (1 source)Start: 09-21-2020 End: 40-95-1696usllpkxm ringers infusionStart: 09-21-2020 End: 26-58-3922wxpucpnk ringers infusionceFAZolin (ANCEF) 2 g in dextrose 5 % 50 mL IVPB (1 source)Start: 09-20-2020 End: g, Intravenous, EVERY 8 HOURS, 2 doses, First dose on Sat09/20/20 at 1300, Last dose on Sat09/20/20at 2100, Post-opcelecoxib 200 mg oral capsule (1 source)Nonsteroidal Anti-inflammatory DrugStart: 09-20-2020 End: 48-04-2518chrmyprtm (CELEBREX) capsule 200 mggabapentin 300 mg oral capsule (1 source)Anti-epileptic AgentStart: 09-20-2020 End: 80-77-0095xliglcqrwt (NEURONTIN) capsule 300 mgmethylPREDNISolone (12 sources)CorticosteroidStart: 11-04-2023 End: 73-18-1631dowvdtYBKCSSMhopjd (Medrol Dospak) 4 MG tablets Indications: Primary osteoarthritis of left knee Follow schedule on package instructions 21 tablet 11/04/2023 10/22/2024 Discontinued (Therapy completed)Start: 11-04-2023 methylPREDNISolone (Medrol Dospak) 4 MG tablets Indications: Primary osteoarthritis of left knee Follow schedule on package instructions 21 tablet 11/04/2023 Active2 ml midazolam 1 mg/ml injection (1 source)BenzodiazepineStart: 09-20-2020 End: 47-23-7515irvfczniw (VERSED) injection 2 mg72 hr scopolamine 0.0139 mg/hr transdermal system (1 source)AnticholinergicStart: 09-20-2020 End: 70-56-4603ltxwblhhgts (TRANSDERM-SCOP) transdermal patch 1 patch Problems Active Problems Problem ClassificationProblemDateDocumented DateEpisodic/ChronicAnxiety disorders (4 sources)Njlzejf88-30-8545FeqjyqoHeqcogz dysrhythmias (4 sources)Sinus hvhvpdairrl28-50-2391NmuxxfqiXvdysnoo (14 sources)Bilateral age-related nuclear cataracts; Translations: [Age-related nuclear cataract, bilateral]Onset: 056531-92-8041MgmoaqtEodraikjufdi of device; implant or graft (14 sources)Coronary artery bypass graft occlusion; Translations: [Other specified complication of vascular prosthetic devices, implants and grafts, initial encounter]Onset: 139557-63-6658CnbrdlfBtsuifcrju disorders (4 sources)Intraventricular conduction rxbecy93-79-1953ZuhcgagMxmezmdk atherosclerosis and other heart disease (20 sources)Coronary arteriosclerosis; Translations: [Atherosclerotic heart disease of [place] coronary artery without angina pectoris]Onset: 04-10-2019 55-35-9174HydgioyVpafyzfdf of lipid metabolism (20 sources)Hyperlipidemia; Translations: [Hyperlipidemia, unspecified]Onset: 795583-02-5357CeyconwJpgafjjto hypertension (20 sources)Hypertensive disorder; Translations: [Essential (primary) hypertension]Onset: 259458-17-8075LemkcquLwlcoyisbzysg symptoms and ill- defined conditions (3 sources)Nocturia; Translations: [Frequency of micturition]Onset: 11-18-2022 46-68-5711GmnbuypeRdjyzrnajna of prostate (4 sources)Benign prostatic cdsodppkmsm12-80-8491TayqsyzUgnf disorders (2 sources)Mood swings; Translations: [Mood swings]20-72-2297XrgjkggDtuuqojkdxr deficiencies (1 source)Vitamin D deficiency, unspecified; Translations: [VITAMIN D DEFICIENCY UNSPECIFIED]Onset: 53-53-5220DrxolhrGcwuhsprbdimup (20 sources)Osteoarthritis of knee; Translations: [Bilateral primary osteoarthritis of knee]Onset: 661758-43-5261NwsbjvrXtpos and ill-defined heart disease (4 sources)Dysfunction of right cardiac hghogvuwb93-39-0569GuumfxsMnyxc and ill- defined heart disease (4 sources)Left ventricular -17-5491AdqnehhZdudz and ill-defined heart disease (2 sources)Cardiomegaly; Translations: [Cardiomegaly]Onset: 06-10-5373Taleqwp Other and unspecified benign neoplasm (2 sources)Melanocytic nevus of trunk; Translations: [Melanocytic nevi of trunk] 71-01-5931JdonyzueGkgnw connective tissue disease (1 source)Presence of left artificial knee joint; Translations: [Presence of left artificial knee joint]Onset: 46-89-5100GwswrkpBwptc connective tissue disease (12 sources)Artificial knee joint present; Translations: [Presence of left artificial knee joint]Onset: 052164-97-5020CxhfnawUkggk connective tissue disease (6 sources)History of total knee arthroplasty; Translations: [Presence of left artificial knee joint]86-65-0390NpflcxnVfcjc connective tissue disease (20 sources)Fibromyalgia; Translations: [Fibromyalgia]Onset: 06-03-2023 81-42-4425SfcykxruSkyku gastrointestinal disorders (4 sources)Irritable bowel -72-0249DfonsylOwsrv lower respiratory disease (4 sources)Chronic tkyai30-76-4785AegxwtetQiliz nervous system disorders (1 source)Acute postoperative pain; Translations: [Acute postoperative pain] EpisodicOther non-traumatic joint disorders (4 sources)Other specified arthritis, left knee; Translations: [OTHER SPECIFIED ARTHRITIS LEFT KNEE]Onset: 39-85-8146IbptdkbYhvmj non-traumatic joint disorders (20 sources)Pain in left knee; Translations: [Pain in joint, lower leg]Onset: 370465-42-3855BbzsagssFceqg skin disorders (2 sources)Seborrheic keratosis; Translations: [Other seborrheic keratosis] 37-20-5491KyrxygtnKkmtv skin disorders (2 sources)Mass of subcutaneous tissue of right upper limb; Translations: [Localized swelling, mass and lump, right upper limb]Onset: 04-08-8569Suqjejti Other skin disorders (4 sources)Nodule of subcutaneous tissue of right zoec74-84-8130Pfdbtfno Peripheral and visceral atherosclerosis (8 sources)Intermittent claudication; Translations: [Peripheral vascular disease]92-21-3567NczlqtwBmhcykymai arthritis and related disease (4 sources)Rheumatoid cbqxjkmol59-86-8773QqfbycdDaaynxmwvpc; intervertebral disc disorders; other back problems (4 sources)Lumbar smlpxrpsoithn06-83-5299NciyvbzeQrthedntayep (1 source)Patient encounter status; Translations: [Preop testing]Unclassified (2 sources)Delayed recovery from general anesthesia; Translations: [Prolonged emergence from general anesthesia]57-00-8083Dpowkaqwjhkn (3 sources)CONTACT W/AND (SUSP) EXPOS COVID-19; Translations: [CONTACT W/AND (SUSP) EXPOS COVID-19]Onset: 00-14-0665Wwafmznnrndk (1 source)left knee degenerative joint disease, right knee adhesive capsulitis Onset: 11-19-2023 Past or Other Problems Problem ClassificationProblemDateDocumented DateEpisodic/ChronicBlindness and vision defects (20 sources)Presbyopia; Translations: [Presbyopia]Onset: EpisodicComplications of surgical procedures or medical care (14 sources)Delayed recovery from general anesthesia; Translations: [Other complications of anesthesia, initialencounter]Onset: EpisodicCoronary atherosclerosis and other heart disease (1 source)Presence of aortocoronary bypass graft; Translations: [PRESENCE AORTOCORONARY BYPASS GRAFT]Onset: 80-59-5501ZeiijkhdMnnctyki mellitus without complication (1 source)Other abnormal glucose; Translations: [OTHER ABNORMAL GLUCOSE]Onset: 75-65-8162TfvvhtclNkce disorders (14 sources)Mood swings; Translations: [Emotional lability]Onset: 06-03-2023 Resolved: 490061-92-2423IofydvlsZqtgv connective tissue disease (14 sources)Full thickness rotator cuff tear; Translations: [Complete rotator cuff tear or rupture of left shoulder, not specified as traumatic]Onset: 368108-50-2944VzuelwitZplae non-traumatic joint disorders (12 sources)Bilateral stiffness of knee joints; Translations: [Stiffness of right knee, not elsewhere classified]Onset: 070294-66-1499NwzybemhGxvds screening for suspected conditions (not mental disorders or infectious disease) (6 sources)Encounter for screening for malignant neoplasm of rectum; Translations: [Encounter for screening for malignant neoplasm of prostate]Onset: 07-12-9633IzrgporaPwbkf upper respiratory infections (1 source)Acute sinusitis, unspecified; Translations: [ACUTE SINUSITIS UNSPECIFIED]Onset: 77-20-4378BiogcmxmIgsbkcdzmtcu (1 source)CONTACT W/AND (SUSP) EXPOS COVID-19; Translations: [CONTACT W/AND (SUSP) EXPOS COVID-19]Onset: 09-11-2022 Results Test NameValueInterpretationReference GdkadWbdnzrtm46pg 14-55-061473Vbgzez MD Regina to Lay Charles MA (Selected Message) 05/10/25 4:02 PM Stress test and echo are ok. Follow up as planned. LVM for patient to advise him of his stress test results per Dr. Lopez request. Patient returned phone call, advised patient of stress test and Echo results per Dr. Tapia's request. Patient verbalized understanding and agreed with plan of careNormalUniversholmes county jo[facility] of [facility] IrvingTelephoneon [phone] [id number] Levon Bond 1950 M Date Provider Department Center 05/11/2025 [id number] HENSON MABLE Fernandez Family History Problem Relation Age of Onset Heart attack Mother Heart attack Father Family Status - Relation Status Age at Mother Father DeceasedNormalUniversKettering Health Greene MemorialOrders Onlyon 05-06-2025 Orders [id number] Levon Bond 1950 M Date Provider Department Center 05/06/2025 [id number], HISTORICAL MABLE [facility] Family History Problem Relation Age of Onset Heart attack Mother Heart attack Father Family Status - Relation Status Age at Mother Father DeceasedNormalUniversKettering Health Greene MemorialOffice Visiton [phone]-up [id number] Levon Bond Natalia 1950 M Date Provider Department Center 04/26/2025 Radha-JUAN CARLOS TAPIA MABLE [facility] Family History Problem Relation Age of Onset Heart attack Mother Heart attack Father Family Status - Relation Status Age at Mother Father Level of Service:17688 NC OFFICE/OUTPATIENT NEW MODERATE MDM 45 MINUTES (25) [facility] K[facility] - left 1 or 2 Viewson 16-48-0727Ggvtmji Result: 10/22/2024: Standing AP and LAT of [...] Stable LT total knee replacement. Sandra Burr APRN-[facility] HealthcareRadiology Study observation (narrative)[facility] Cancer CenterSurgical Pathology Reporton [id number] Pathology ReportLouis Stokes Cleveland Va Medical Center [address] [place] [address]- Surgical Pathology Report Collected Date/Time: 10/13/2024 14:27 [...] is entirely submitted in one cassette. (DC) DC:[facility] Microscopic Description Microscopic examination performed unless gross only specified. This report was transcribed using voice recognition technology and might contain unintended computerized industrial roofer helper errors.[facility] ColumbusComment on above:Performed By: #### [id number] #### Julio César [facility] [address] [place], [place] [address]Lzfshgtspz Visit Summaryon [id number] Visit Summary Ambulatory Visit Summary LEVON BOND :1950 Visit Date:10/13/2024 Ambulatory Visit Instructions Your Care Team Attending Physician - WILIAM CADET, Amadeo Mtz Primary Care Physician - Annamaria CADET, Charity This Is Your Medications List Contact prescribing physician if questions or concerns acetaminophen-hydrocodone (acetaminophen-hydrocodone 325 mg-5 mg oral tablet) aspirin (aspirin [...] Medications What How Much When Instructions Unchanged acetaminophen-hydrocodone (acetaminophen-hydrocodone 325 mg-5 mg oral tablet) 1 Tablets By Mouth 4 times a day as needed for as needed for pain Contact prescribing physician if questions orconcerns Unchanged aspirin (aspirin 81 mg Oral EC [...] prescribing physician if questions or concerns Allergies amoxicillin-clavulanate (Nausea, Blurry Vision, Fluid Retention) Problems Ongoing [...] you for choosing us for your care. [facility] ColumbusGeneral Surgery Office/Clinic Noteon 69-80-1025Dplioua Surgery Office/Clinic NoteGeneral Surgery Office/Clinic Note Chief Complaint in office [...] swallowing difficulties, no hearing loss, no ear infection(s),no nose bleeds. Cardiovascular: normal blood pressure, no [...] well, consistent with inclusion cyst; ibuprofen as neededfor pain; f/u in 10 days for suture [...] Immunizations Vaccine Date Status Comments SARS-CoV-2 (COVID-19) mRNAMUL.ORD![id number] 09/20/2022 Recorded 2024-09-07: TPV70 SARS-CoV-2 (COVID-19) mRNA-1273 vaccine 02/01/2022 Recorded SARS-CoV-2 (COVID-19) mRNA-1273 vaccine 07/31/2021 Recorded 2024-09-07: TPV70 SARS-CoV-2 (COVID-19) mRNA-1273 vaccine 12/15/2020 Recorded 2024-09-07: TPV70 SARS-CoV-2 (COVID-19) mRNA-1273 vaccine 11/17/2020 Recorded 2024-09-07: TPV70 [facility] ColumbusComment on above:Result Comment: Electronically Signed By: WILIAM CADET, Amadeo Mtz\.br\Date and Time Signed: 10/13/24 14:16 EST Ambulatory Visit Summaryon [id number] Visit SummaryAmbulatory Visit Summary LEVON BOND :1950 Visit Date:09/29/2024 Ambulatory Visit Instructions Your Care Team Attending Physician - WILIAM CADET, Amadeo Mtz Primary Care Physician - Charity Yin MD This Is Your Medications List Contact prescribing physician if questions or concerns acetaminophen-hydrocodone (acetaminophen-hydrocodone 325 mg-5 mg oral tablet) aspirin (aspirin [...] EST With: WILIAM CADET, Amadeo Mtz Where: [facility] [address], [address], [place] [id number]- Medications What How Much When Instructions Unchanged acetaminophen-hydrocodone (acetaminophen-hydrocodone 325 mg-5 mg oral tablet) 1 Tablets By Mouth 4 times a day as needed for as needed for pain Contact prescribing physician if questions orconcerns Unchanged aspirin (aspirin 81 mg Oral EC [...] prescribing physician if questions or concerns Allergies amoxicillin-clavulanate (Nausea, Blurry Vision, Fluid Retention) Problems Ongoing [...] you for choosing us for your care. [facility]XR K[facility] - left 1 or 2 Viewson [id number] Result: AP and lateral of left knee [...] dislocation. Impression: Unremarkable left total knee arthroplasty. [facility]XR [facility] - left 1 or 2 ViewsOrdered By: Jr. Alas on 05-13-2024 [facility] Work Phone: XR Knee - left 1 or 2 Viewson 07-41-3501Myjgbezfj Study observation (narrative)[facility] HospitalB AND HCTon 79-32-7734Byxcsycbyw (Bld) [Volume fraction]36.0 %Ghl59-04HrnCejgsqMercy Health Springfield Regional Medical CenterComment on above: Performed By: #### HH #### [facility] ([id number]) [address] [place] [address] 10331Wffvlievxb (Bld) [Mass/Vol]12.3 g/dLLow13.0-17.0Mer[facility] Springfield Regional Medical CenterComment on above:Performed By: #### HH #### [facility] ([id number]) [address] [place] [address]UOY AND HCTon 14-05-7800Avadhmneul (Bld) [Volume fraction]37.5 %Guo85-45SrhMvveauMercy Health Springfield Regional Medical CenterComment on above:Performed By: #### HH #### [facility] ([id number]) [address] [place] [address]Dxsuvlnfyy (Bld) [Mass/Vol]12.9 g/dLLow13.0-17.0Mer[facility] Medical CenterComment on above:Performed By: #### HH #### [facility] ([id number]) [address] [place] [address] 40160DEG AND HCTon 90-58-3674Akaqtzsmzo (Bld) [Volume fraction]42.5 %Aqsxmz35-57YizFnugsxChristus Good Shepherd Medical Center – LongviewComment on above:Performed By: #### HH #### [facility] ([id number]) [address] [place] [address]83[address]Jiszqrskfo (Bld) [Mass/Vol]14.3 g/tEVxafrt43.0-17.0Mer[facility] Medical CenterComment on above:Performed By: #### HH #### [facility] ([id number]) [address] [place] [address] 22401JU KNEE LT 1 OR 2 VWSon 64-76-4846GW KNEE LT 1 OR 2 VWSXR KNEE LT 1 OR 2 VWS History: Postop follow-up. Pain Study: Left knee Two view study. Impression: Total knee arthroplasty has been performed. The femoral and tibial components are excellent position. No fracture. No acute hardware complication is seen. Skin elizabeth are noted. Follow-up is planned. Finalized by Janette Fletcher MD on 11/19/2023 2:43 PMNormalMercy Health Springfield Regional Medical Center XR BONE LENGTH STUDYon 49-62-7395QI BONE LENGTH STUDYXR BONE LENGTH STUDY CLINICAL INFORMATION:Coronary artery disease involving naknek coronary artery of naknek heart without angina pectoris; Preop examination; Urinary [...] mild, 1 degree varus alignment. Finalized by Mc Meraz MD on 11/10/2023 2:18 PMNormalMercy Health Springfield Regional Medical CenterBacteria identified Cx Nom (U)on 49-64-2991Pwusqky comment (Unsp spec) [Interp]<10,000 ORGANISMS/ML NORMAL URO GENITAL FLORAClarks Summit State HospitalBASIC METABOLIC PANLon 09-31-9115Stepm gap [Moles/Vol]7 mmol/LNormal5-15Mer[facility] Medical CenterComment on above:Performed By: #### FAY, BMP #### [facility] ([id number]) [address], [address] [place], [place] [address]Bbefpbx [Mass/Vol]10.0 mg/dLNormal8.5-10.5PUniversity Hospitals Portage Medical CenterComment on above:Performed By: #### FAY BMP #### [facility] ([id number]) [address], [address] [place], [place] [address]Jzjaomqh [Moles/Vol]101 mmol/SHmztur70-878QsiYnzbjkChristus Good Shepherd Medical Center – LongviewComment on above:Performed By: #### FAY, BMP #### [facility] ([id number]) [address], [address] [place], [place] [address]OG1 [Moles/Vol]30 mmol/OPvvngm22-46AbzEjkymuUniversity Hospitals Portage Medical Center Comment on above:Performed By: #### FAY, BMP #### [facility] ([id number]) [address], [address] [place], [place] [address]Ctxhelplgo [Mass/Vol]0.92 mg/dLNormal0.60-1.30Mer[facility] Springfield [facility] Medical CenterComment on above:Result Comment: METHOD TRACEABLE TO IDMS STANDARD Performed By: #### FAY, BMP #### [facility] ([id number]) [address], [address] [place], [place] [address]DWQ/1.73 sq M.predicted among non-blacks MDRD (S/P/Bld) [Vol rate/Area]88 mL/min/{1.73_m2}Normal>59ProChristus Good Shepherd Medical Center – LongviewComment on above:Result Comment: Reported eGFR is based on the CKD-EPI 2020 equation that does not use a race coefficient.Performed By: #### BREANNA APONTE #### [facility] ([id number]) [address] [address]Kwfigxh [Mass/Vol]94 mg/fFHyzihd80-81BybRiqiunMercy Health Springfield Regional Medical Center Comment on above:Performed By: #### FAY, BMP #### [facility] ([id number]) [address] [address]Bnprpnqcg [Moles/Vol]4.7 mmol/LNormal3.5-5.0ProChristus Good Shepherd Medical Center – LongviewComment on above:Performed By: #### FAY, BMP #### [facility] ([id number]) [address], [facility] [address] [place], [place] [address]Nbegnc [Moles/Vol]138 mmol/NXufyql467-326AiqExvikl Fremont HospitalComment on above:Performed By: #### FAY, BMP #### [facility] ([id number]) [address] [address]Nxeu nitrogen [Mass/Vol]23 mg/dLNormal5-27ProChristus Good Shepherd Medical Center – LongviewComment on above:Performed By: #### FAY, BMP #### [facility] ([id number]) [address] [address]Qdywf Metabolic Panelon 28-38-2124Bxvli gap [Moles/Vol]7 mmol/L5 - 15 mmol/LProMedica Health SystemCalcium [Mass/Vol]10.0 mg/dL8.5 - 10.5 mg/dL ProMedica Health SystemChloride [Moles/Vol]101 mmol/L98 - 109 mmol/LProMedica Health SystemCO2 [Moles/Vol]30 mmol/L22 - 32 mmol/LProMedica Health System Creatinine [Mass/Vol]0.92 mg/dL0.60 - 1.30 mg/dLUK HealthcareComment on above:METHOD TRACEABLE TO IDWY STANDARDeGFR (CKD-EPI)non-race bvduhqulm18- [facility] Memorial HospitalComment on above: Reported eGFR is based on the CKD-EPI 2020 equation that does not use a race coefficient. Glucose [Mass/Vol]94 mg/dL65 - 99 mg/dLUK HealthcarePotassium [Moles/Vol]4.7 mmol/L3.5 - 5.0 mmol/LPrCleveland Clinic SystemSodium [Moles/Vol] 138 mmol/L134 - 146 mmol/[facility] Medical CenterUrea nitrogen [Mass/Vol]23 mg/dL5 - 27 mg/dLKaleida HealthCBC AND AUTO DIFF on 00-16-2873GDWAUKVE BASOPHIL0.0 X10E9/LNormal0.0-0.2PUniversity Hospitals Portage Medical Center Comment on above:Performed By: #### CBCSuri BMP #### [facility] ([id number]) [address], [address] [place], [place] [address]VQCFCMIJ NEUTROPHIL6.9 X10E9/LHigh1.5-6.6Mer[facility] Medical CenterComment on above:Performed By: #### CBCSuri, BMP #### [facility] ([id number]) [address], [address] [place], [place] [address]Cptauyyay/100 WBC (Bld)0.4 %NormalMercy Health Springfield Regional Medical Center Comment on above:Performed By: #### CBCSuri, BMP #### [facility] ([id number]) [address], [address] [place], [place] [address]Uyxmsfxexkg (Bld) [#/Vol]0.0 10*3/uLNormal0.0-0.4Mer[facility] Medical CenterComment on above:Performed By: #### CBCA, BMP #### [facility] ([id number]) [address], [address] [place], [place] [address]Lvovrrutnmt/100 WBC (Bld)0.6 %NormalMercy Health Springfield Regional Medical Center Comment on above:Performed By: #### CBCSuri, BMP #### [facility] ([id number]) [address], [address] [place], [place] [address]Jrmvqoeedpz distribution width (RBC) [Ratio]13.3 %Normal 11.5-15.0Mer[facility] Medical CenterComment on above:Performed By: #### CBCA, BMP #### [facility] ([id number]) [address], [address] [place], [place] [address]Wvkzikxnxa (Bld) [Volume fraction]45.3 %Aiqzju96-68YjxWkgnbpChristus Good Shepherd Medical Center – LongviewComment on above:Performed By: #### CBCA, BMP #### [facility] ([id number]) [address], [address] [place], [place] [address]Fihrqnsgue (Bld) [Mass/Vol]15.3 g/xEFyxmcq17.0-17.0Mer[facility] Medical CenterComment on above:Performed By: #### CBCSuri, BMP #### [facility] ([id number]) [address], [address] [place], [place] [address]Vylgyasesxj (Bld) [#/Vol]1.1 10*3/uLNormal1.0-3.5PUniversity Hospitals Portage Medical CenterComment on above:Performed By: #### CBCA, BMP #### [facility] ([id number]) [address], [address] [place], [place] [address]Oisxxqdmoyj/100 WBC (Bld)12.3 %NormalMercy Health Springfield Regional Medical Center Comment on above:Performed By: #### CBCA, BMP #### [facility] ([id number]) [address], [address] [place], [place] [address]KRS (RBC) [Entitic mass]32.3 dnKhfsfo32-37EraUixeysMercy Health Springfield Regional Medical CenterComment on above:Performed By: #### CBCA, BMP #### [facility] ([id number]) [address], [address] [place], [place] [address]HTHE (RBC) [Mass/Vol]33.7 g/xPPvmdwn74-78VkzPpkabuMercy Health Springfield Regional Medical CenterComment on above:Performed By: #### CBCA, BMP #### [facility] ([id number]) [address], [address] [place], [place] [address]SNW (RBC) [Entitic vol]96 iXXkdrdc39-249DfpYskiygMercy Health Springfield Regional Medical CenterComment on above:Performed By: #### CBCA, BMP #### [facility] ([id number]) [address], [address] [place], [place] [address]Hvjhhqubi (Bld) [#/Vol]0.8 10*3/uLNormal0-0.9Mer[facility] Medical CenterComment on above:Performed By: #### CBCA, BMP #### [facility] ([id number]) [address], [address] [place], [place] [address]Bfdpcbzeu/100 WBC (Bld)9.0 %[facility] Comment on above:Performed By: #### CBCA, BMP #### [facility] ([id number]) [address], [address] [place], [place] [address]Nrzjrllssyp/100 WBC (Bld)77.7 %[facility] Comment on above:Performed By: #### CBCA, BMP #### [facility] ([id number]) [address], [address] [place], [place] [address]Olgdgjsj mean volume (Bld) [Entitic vol]8.9 fLNormal7-12 [facility] Medical CenterComment on above:Performed By: #### CBCA, BMP #### [facility] ([id number]) [address], [address] [place], [place] [address]Fvldlboky (Bld) [#/Vol]257 10*3/dPKmwwsv124-745FchOnvmsf Fremont HospitalComment on above:Performed By: #### CBCSuri, BMP #### [facility] ([id number]) [address], [address] [place], [place] [address]OKJ COUNT4.73 X10E12/LNormal4.10-5.70[facility] Comment on above:Performed By: #### CBCSuri, BMP #### [facility] ([id number]) [address], [address] [place], [place] [address]MFU (Bld) [#/Vol]8.9 10*3/uLNormal4.0-11.0Mer[facility] Medical CenterComment on above:Performed By: #### CBCA, BMP #### [facility] ([id number]) [address], [address] [place], [place] [address]MBN auto differentialon 84-88-9195Xkqqophuq (Bld) [#/Vol]0.0 10*3/[facility] Medical CenterBasophils/100 WBC (Bld)0.4 %UK HealthcareEosinophils (Bld) [#/Vol]0.0 10*3/[facility] Medical CenterEosinophils/100 WBC (Bld)0.6 %UK HealthcareErythrocyte distribution width (RBC) [Ratio]13.3 %11.5 - 15.0 %UK HealthcareHematocrit (Bld) [Volume fraction]45.3 %39 - 49 %UK HealthcareHemoglobin (Bld) [Mass/Vol]15.3 g/dL13.0 - 17.0 g/dLUK HealthcareInterpretation and review of laboratory resultsAbnormalUK HealthcareLymphocytes (Bld) [#/Vol]1.1 10*3/uLUK HealthcareLymphocytes/100 WBC (Bld)12.3 %[facility] HospitalH (RBC) [Entitic mass]32.3 pg27 - 34 pgPCentervilleMCHC (RBC) [Mass/Vol]33.7 g/dL32 - 36 g/dLUK HealthcareMCV (RBC) [Entitic vol]96 fL80 - 100 [facility] County HospitalMonocytes (Bld) [#/Vol]0.8 10*3/uLUK HealthcareMonocytes/100 WBC (Bld)9.0 %UK HealthcareNeutrophils (Bld) [#/Vol]6.9 10*3/uLAugusta HealthNeutrophils/100 WBC (Bld)77.7 %UK HealthcarePlatelet mean volume (Bld) [Entitic vol]8.9 fL7 - 12 fL UK HealthcarePlatelets (Bld) [#/Vol]257 10*3/[facility] RBC (Bld) [#/Vol]4.73 10*6/[facility] Medical CenterWBC corrected for nucl RBC Auto (Bld) [#/Vol]8.9Kaleida HealthECG 12 leadon 01-55-6021FGRUCTRZMSVSAHSrtCeiugu Health SystemType and screen(includes indirect wanda)on 96-90-6451VMHWYksTqgucuZucker Hillside HospitalRh Nom (Bld)Positive Kaleida HealthURINALYSISon 79-48-2602Mplybjzfr Ql (U)NegativeNormalNEGMercy Health Springfield Regional Medical CenterBLOOD/HGBNegativeNormalNEG [facility] CenterColor (U)YELLOWNormalYELLOWMercy Health Springfield Regional Medical Center Glucose Ql (U)NegativeNormalNEGProChristus Good Shepherd Medical Center – LongviewKetones Ql (U)Negative NormalNEGMercy Health Springfield Regional Medical CenterLeukocyte esterase Test strip Ql (U)Negative NormalNEGMercy Health Springfield Regional Medical CenterNitrite Ql (U)NegativeNormalNEGMercy Health Springfield Regional Medical CenterpH (U)6.0 [pH]Normal5.0-8.5PUniversity Hospitals Portage Medical CenterProtein Ql (U)NegativeNormalNEGEast Liverpool City Hospitalpecific gravity (U) [Rel density] 1.407Vsaxyl1.003-1.035ProChristus Good Shepherd Medical Center – LongviewTURBIDITYCLEARNormalCLEAR ProMResnick Neuropsychiatric Hospital at UCLAUrobilinogen (U) [Mass/Vol]mg/dLNormal<1.1PUniversity Hospitals Portage Medical CenterURINE CULTUREon 27-87-7299Awiykhzx identified Cx Nom (U)CULTURE RESULTS <10,000 ORGANISMS/ML NORMAL URO GENITAL FLORANoDiley Ridge Medical Center Comment on above:Performed By: #### 630-4 #### [facility] ([id number]) [address] [place] [address], [address] [place], [place] [address]Iwljuuixodnw 94-51-7018Hyipvbciw Ql (U)NegativeNegative^Negative [facility] Health SystemColor (U)YELLOWYELLOW^YELLOWCenterville System Glucose (U) [Mass/Vol]NegativeNegative^Negative mg/dLCenterville System Hemoglobin Auto test strip Ql (U)NegativeNegative^NegativeAultman Hospital Health SystemKetones (U) [Mass/Vol]NegativeNegative^Negative mg/dLCenterville SystemLeukocyte esterase Auto test strip Ql (U)NegativeNegative^Negative [facility] Campusa Health SystemNitrite Auto test strip Ql (U)NegativeNegative^Negative [facility] Campusa Health SystempH (U)6.0 [pH]5.0 - 8.5P[address] [facility] Hospital Health SystemProtein (U) [Mass/Vol]NegativeNegative^Negative mg/dLCenterville SystemSpecific gravity Refractometry automated (U) [Rel density]1.0101.003 - 1.035Centerville SystemTurbidity Ql (U)CLEARCLEAR^CLEARCenterville SystemUrobilinogen Qn (U)NINFPWayne Hospital SystemAultman Hospital Health SystemXR Knee - left 1 or 2 Viewson 15-33-2182Kanxqhc Result: AP and lateral views of left knee showed severe varus deformity with mjec-rk-eohr articulation to the medial joint line, flattening [...] joint disease left knee with varus deformity [facility] HospitalRadiology Study observation (narrative)[facility] KNEE LT WO CONon 33-80-9624MOT KNEE LT WO CONEXAMINATION: MRI KNEE LT WO CON HISTORY: Idiopathic [...] Electronically authenticated by: VALERIE CHRISTY Date: 2022-11-27 08:55NormCity HospitalOCC BLD IMMUNO SCREENon 79-12-8122OEHOFD BLOODNegativeNormal NEGATIVEThe University Hospitals Geneva Medical CenterComment on above:Performed By: #### OBSCRN #### [facility] Laboratory [address] [place], [place] [address] Dr. Ankit PetersINSULINon 56-71-7686Gdanvrv16.6 uIU/mLNormal2.6-24.9The [facility] Medical CenterComment on above:Performed By: #### INSULIN ####[facility] [address] [place], [place] [address]JdDr. Ankit PetersCBC AUTO DIFF on 68-56-2189TWJO #0.0 103/ulNormal0.0-0.1The [facility] Medical CenterComment on above: Performed By: #### CBC ####[facility] [address] [place], [place] [address]Dr.Yolandalan ChangBasophils/100 WBC (Bld)0.5 %Normal 0.2-2.0The [facility] CenterComment on above:Performed By: #### CBC ####[facility] [address] [place], [place] [address]Dr.Yilan ChangEO # 0.1 103/ulNormal0.0-0.7The [facility] Medical CenterComment on above:Performed By: #### CBC ####[facility] J[address]sexeelc[address] [place], [place] [address]Dr. Yolandalan ChangEosinophils/100 WBC (Bld)2.0 %Normal0.9-7.0The [facility] Comment on above:Performed By: #### CBC ####[facility] [address] [place], [place] [address]Dr.Ankit ChangErythrocyte distribution width (RBC) [Ratio]12.6 %Nitoto93.0-15.0The Mercy Healthment on above: Performed By: #### CBC ####[facility] Er[address]gu[address] [place], [place] [address]Dr.Ankit ChangHematocrit (Bld) [Volume fraction]46.6 % Erqmaw95.0-54.0The Mercy Healthment on above:Performed By: #### CBC ####[facility] [address] [place], [place] [address]Dr. Ankit ChangHemoglobin (Bld) [Mass/Vol]15.3 g/jFZnhhrs37.0-18.0The [facility] CenterComment on above:Performed By: #### CBC ####[facility] K[address] [place], [place] [address]Dr.Yolandalan ChangIG #0.02 10e3/ulNormal0.00-0.03The [facility] CenterComment on above:Performed By: #### CBC ####[facility] [address] [place] [address]Dr. Ankit PetersIG %0.3 %Normal0.0-0.5The [facility] CenterComment on above:Performed By: #### CBC ####[facility] [address] [place] [address]Dr.Ankit FranLYMPH #1.4 103/ulNormal1.2-3.8The [facility] Comment on above:Performed By: #### CBC ####[facility] Osjtw[address] [place], [place] [address]Dr.Ankit Ferrarimphocytes/100 WBC (Bld)21.5 %Rmwlvi67.5-60.0The [facility] CenterComment on above:Performed By: #### CBC ####[facility] [address]rmf[address] [place], [place] [address]Dr. Ankit PetersMANUAL DIFF REQNONormalThe [facility] CenterComment on above: Performed By: #### CBC ####[facility] Fagcwwne[address] [place], [place] [address]Dr.Ankit FranBLYTHEDALE CHILDREN'S [facility] (RBC) [Entitic mass]31.6 pgNormal 25.9-34.0The [facility] CenterComment on above:Performed By: #### CBC ####[facility] I[address]ogjuajk[address] [place], [place] [address]Dr. Ankit FranHC (RBC) [Mass/Vol]32.8 g/gWXrxrao52.9-35.2[facility] Comment on above:Performed By: #### CBC ####[facility] [address] [place], [place] [address]Dr.Ankit FranV (RBC) [Entitic vol]96.3 fL Critically high80.0-94.0The [facility] CenterComment on above:Performed By: #### CBC ####[facility] Kdvjvdyyrs[address] [place], [place] [address]Dr. Yolandaradha PetersMONO #0.6 103/ulNormal0.3-0.8The Parksley HospitalComment on above: Performed By: #### CBC ####[facility] [address] [place] [address]Dr.Ankit ChangMonocytes/100 WBC (Bld)9.3 %Normal 1.7-12.0The Parks[facility] HospitalComment on above:Performed By: #### CBC ####[facility] [address] [place] [address]Dr. Yolandalan ChangNEUT #4.4 103/ulNormal1.4-6.5The [facility] HospitalComment on above: Performed By: #### CBC ####[facility] [address] [place], [place] [address]Dr.Yolandalan ChangNeutrophils/100 WBC (Bld)66.4 %Normal 43.0-75.0The [facility] CenterComment on above:Performed By: #### CBC ####[facility] Dgprotlixj[address] [place], [place] [address]Dr. Ankit ChangPlatelet mean volume (Bld) [Entitic vol]9.5 fLNormal9.5-13.5The [facility] HospitalComment on above:Performed By: #### CBC ####[facility] [address]xgrfrem[address] [place], [place] [address]Dr.Ankit SbxyaVXS315 103/ul Lacwxc823-068Ips [facility] CenterComment on above:Performed By: #### CBC ####[facility] G[address]lkqloj[address] [place], [place] [address]Dr. Yolandalan ChangRBC4.84 106/ulNormal4.70-6.10The [facility] HospitalComment on above: Performed By: #### CBC ####[facility] Bqashlvpro[address] [place], [place] [address]Dr.Yolandalan ChangWBC6.6 103/ulNormal4.0-11.0The Parks[facility] HospitalComment on above:Performed By: #### CBC ####[facility] [address]pqjlo[address] [place], [place] [address]Dr.Yolandalan ChangFREE THYROXINE INDEX T7on 57-74-0011ZAM3.49Usemgz8.30-4.50[facility] HospitalCombronson battle creek hospital on above:Performed By: #### LIPID, URIC, CMP, TSH, T7 #### [facility] [address] [place] [address] [address] Ankit PetersT3U34.0 %Ouwrbr68.0-40.0The [facility] CenterComment on above: Performed By: #### LIPID, URIC, CMP, TSH, T7 #### [facility] [address] [place] [address] [address] Ankit PetersT4 [Mass/Vol]8.30 ug/dLNormal4.50-12.10The [facility] Comment on above:Performed By: #### LIPID, URIC, CMP, TSH, T7 #### [facility] [address] [place] [address] Dr. Ankit PetersGLYCOHEMOGLOBIN A1Con 76-16-2374JCL RECOMMENDATIONSEE BELOWProvidence HospitalCombronson battle creek hospital on above:Result Comment: ADA RECOMMENDED LIMIT 4.0 - 6.0 ADA THERAPEUTIC TARGET < 7.0 ACTION SUGGESTED > 7.0Performed By: #### A1C #### [facility] [address] [place] [address] Dr. Ankit PetersGlucose [Mass/Vol]105 mg/dLNoGenesis HospitalCombronson battle creek hospital on above:Performed By: #### A1C #### [facility] [address] [place] [address] Dr. Ankit PetersHbA1c (Bld) [Mass fraction]5.3 %Normal4.5-6.2The [facility] Medical CenterComment on above:Performed By: #### A1C #### [facility] [address] [place] [address] Dr. Ankit PetersLIPID PROFILEon 47-62-6959CQIM-HDL RATIO NORMSEE [facility] HospitalCombronson battle [facility] hospital on above:Result Comment: 3.3 - 4.4 LOW RISK 4.4 - 7.1 AVERAGE RISK 7.1 - 11.0 MODERATE RISK >11.0 HIGH RISKPerformed By: #### LIPID, URIC, CMP, TSH, T7 #### [facility] [address] [place] [address] [address] Ankit PetersCholesterol [Mass/Vol]154 mg/dLNormal<=200The [facility] Comment on above:Performed By: #### LIPID, URIC, CMP, TSH, T7 #### [facility] [address] [place] [address] [address] Ankit PetersCholesterol in HDL [Mass/Vol]55 mg/jWSnqzjk99-89Ebp [facility] CenterComment on above:Performed By: #### LIPID, URIC, CMP, TSH, T7 #### [facility] [address] [place] [address] [address] Ankit PetersCholesterol in LDL [Mass/Vol]84.2 mg/dLBarney Children's Medical CenterComment on above:Performed By: #### LIPID, URIC, CMP, TSH, T7 #### [facility] [address] [place] [address] [address] Ankit Yunestersavanah.total/Cholesterol in HDL [Mass ratio]2.8 {ratio} NormalBluffton HospitalComment on above:Performed By: #### LIPID, URIC, CMP, TSH, T7 #### [facility] [address] [place] [address] [address] Ankit Harris NORMAL> or = 60 mg/dl - LOW CARDIOVASCULAR RISK <40 mg/dl - HIGH CARDIOVASCULAR RISKBarney Children's Medical CenterComment on above:Performed By: #### LIPID, URIC, CMP, TSH, T7 #### [facility] [address] [place] [address] [address] Ankit Storm CALC NORMALSEE BELOWNoGenesis HospitalComment on above:Result Comment: <100 mg/dl OPTIMAL 100 - 129 mg/dl NEAR OR ABOVE OPTIMAL 130 - 159 mg/dl BORDERLINE HIGH 160 - 189 mg/dl HIGH >190 mg/dl VERY HIGH Performed By: #### LIPID, URIC, CMP, TSH, T7 #### [facility] [address] [address] [address] Ankit PetersTriglyceride [Mass/Vol]74 mg/dLNormal<=150The [facility] Comment on above:Performed By: #### LIPID, URIC, CMP, TSH, T7 #### [facility] [address] [address] [address] Ankit SingerLDL CALC14.8 mg/dLNormalThe [facility] CenterComment on above: Performed By: #### LIPID, URIC, CMP, TSH, T7 #### [facility] [address] [address] [address] Ankit Finney 14(COMP METB)on [id number] [Mass/Vol]4.1 g/dLNormal 3.4-5.0The [facility] CenterComment on above:Performed By: #### LIPID, URIC, CMP, TSH, T7 #### [facility] [address] [place] [address] Dr. Ankit PetersAlbumin/Globulin [Mass ratio]1.2 {ratio}NormalThe [facility] CenterComment on above:Performed By: #### LIPID, URIC, CMP, TSH, T7 #### [facility] [address] [place] [address] Dr. Ankit Rangel [Catalytic activity/Vol]65 U/QXbqjds68-735Bhd [facility] Healthment on above:Performed By: #### LIPID, URIC, CMP, TSH, T7 #### [facility] [address] [address] [address] Ankit Wynn [Catalytic activity/Vol]36 U/MGcqgne06-34Knq [facility] Healthment on above:Performed By: #### LIPID, URIC, CMP, TSH, T7 #### [facility] [address] [address] [address] Ankit Melchor gap [Moles/Vol]9.1 mmol/LNormalThe [facility] CenterComment on above:Performed By: #### LIPID, URIC, CMP, TSH, T7 #### [facility] [address] [address] [address] Ankit Porras [Catalytic activity/Vol]29 U/PFkpswo34-43Jyc [facility] CenterComment on above:Performed By: #### LIPID, URIC, CMP, TSH, T7 #### [facility] [address] [place] [address] Dr. Ankit PetersBilirubin [Mass/Vol]0.6 mg/dLNormal0.2-1.0[facility] Comment on above:Performed By: #### LIPID, URIC, CMP, TSH, T7 #### [facility] [address] [place] [address] Dr. Ankit PetersCalcium [Mass/Vol]9.4 mg/dLNormal8.5-10.1The [facility] Comment on above:Performed By: #### LIPID, URIC, CMP, TSH, T7 #### [facility] [address] [place] [address] Dr. Ankit PetersChloride [Moles/Vol]104 mmol/ELjxeuv06-447AvpBluffton Hospital Comment on above:Performed By: #### LIPID, URIC, CMP, TSH, T7 #### [facility] [address] [place] [address] Dr. Ankit PetersCO2 [Moles/Vol]30.2 mmol/BVuhlun25.0-32.0[facility] Comment on above:Performed By: #### LIPID, URIC, CMP, TSH, T7 #### [facility] [address] [place] [address] Dr. Ankit PetersCreatinine [Mass/Vol]0.90 mg/dLNormal0.70-1.30The [facility] CenterComment on above:Performed By: #### LIPID, URIC, CMP, TSH, T7 #### [facility] [address] [place] [address] Dr. Ankit MeekGFR-AF YEMENI>60Normal>=60The [facility] CenterComment on above:Performed By: #### LIPID, URIC, CMP, TSH, T7 #### [facility] [address] [place] [address] Dr. Ankit MeekGFR-NON AF YEMENI>60Normal>=60The [facility] CenterComment on above:Performed By: #### LIPID, URIC, CMP, TSH, T7 #### [facility] [address] [address] [address] Ankit PetersGlobulin (S) [Mass/Vol]3.4 g/dLNormCity HospitalComment on above:Performed By: #### LIPID, URIC, CMP, TSH, T7 #### [facility] [address] [place] [address] Dr. Ankit PetersGlucose [Mass/Vol]97 mg/vTRrufpu26-909Amy [facility] Comment on above:Performed By: #### LIPID, URIC, CMP, TSH, T7 #### [facility] [address] [address] [address] Ankit PetersPotassium [Moles/Vol]4.3 mmol/LNormal3.5-5.1The [facility] Comment on above:Performed By: #### LIPID, URIC, CMP, TSH, T7 #### [facility] [address] [place] [address] Dr. Ankit PetersProtein [Mass/Vol]7.5 g/dLNormal6.4-8.2The [facility] Comment on above:Performed By: #### LIPID, URIC, CMP, TSH, T7 #### [facility] [address] [place] [address] Dr. Ankit PetersSodium [Moles/Vol]139 mmol/EPmhlil542-131VojBluffton Hospital Comment on above:Performed By: #### LIPID, URIC, CMP, TSH, T7 #### [facility] [address] [place] [address] Dr. Ankit PetersUrea nitrogen [Mass/Vol]17.0 mg/dLNormal7.0-18.0The [facility] CenterComment on above:Performed By: #### LIPID, URIC, CMP, TSH, T7 #### [facility] [address] [place] [address] Dr. Ankit Ventura nitrogen/Creatinine [Mass ratio]18.9 mg/mgNoGenesis HospitalComment on above:Performed By: #### LIPID, URIC, CMP, TSH, T7 #### [facility] [address] [place] [address] Dr. Ankit Palomo 56-15-7263YGN5.285 uIU/mLNormal0.358-3.740The [facility] CenterComment on above:Performed By: #### LIPID, URIC, CMP, TSH, T7 #### [facility] [address] [address] [address] Ankit PetersURIC ACID SERUMon [id number] [Mass/Vol]4.8 mg/dLNormal 3.5-7.2The [facility] CenterComment on above:Performed By: #### LIPID, URIC, CMP, TSH, T7 #### [facility] [address] [address] [address] Ankit PetersVITAMIN D 25 OHon [id number] D 25-OH41.4 ng/mLNormalThe [facility] CenterComment on above:Performed By: #### VITAD, PSASC ####[facility] [address] [id number]. Ankit PetersVIT D RANGESSEE BELOWNoGenesis HospitalComment on above:Result Comment: <20 ng/mL Vit D deficient 20 - <30 ng/mL Vit D insufficient 30 - 100 ng/mL Vit D sufficient >100 ng/mL Potential ToxicityPerformed By: #### VITAD, PSASC ####[facility] [address] [id number]. Ankit PetersCovid-19 PCR (CVDTBH)on [id number]-CoV-2 (COVID-19) RNA KANDICE+probe Ql (Unsp spec)Not detectedNormalNOT DETECTEDThe [facility] CenterCombronson battle creek hospital on above:Result Comment: This test is not yet approved or cleared by the [place] FDA. When there are no FDA-approved or cleared tests available, and other criteria are met, FDA can make tests available under an emergency access mechanism called an Emergency Use Authorization (EUA). The EUA for this test is supported by the [place] of Health and Human Service's (HHS's) declaration [...] of clinical signs and symptoms consistent with SARS-CoV-2.Performed By: #### CVDTBH ####[address] [address]Dr. Ankit ChangINFLUENZA A AND B AGon [id number] Grove City [facility] on above:Result Comment: Negative for Flu A protein angiten. Infection due to Flu A cannot be ruled out. FluA angiten in the sample may be below the detection limit of the test.Performed By: #### INFLUAB ####[address] [address]Dr. Ankit ChangINFLUBNEGHSEE [facility] on above:Result Comment: Negative for Flu B protein antigen. Infection due to Flu B cannot be ruled out. FluB antigen in the sample may be below the detection limit of the test.Performed By: #### INFLUAB ####[address] [address]Dr. Ankit ChangINFLUENZA A AGNegativeNormalNEGATIVE SEE COMMENTThe [facility] on above:Performed By: #### INFLUAB ####[facility] [address] [place], [place] [address]Dr. Ankit ChangINFLUENZA B AG NegativeNormalNEGATIVE SEE COMMENTThe [facility] on above: Performed By: #### INFLUAB ####[address] [address]Dr. Ankit ChangINTERNAL CONTROLSWithin Normal Limits NormalWithin Normal LimitsThe [facility] on above:Performed By: #### INFLUAB ####[facility] [address] [place], [place] [address]Dr. Ankit PetersBasic Metabolic Panelon [id number] gap [Moles/Vol]7 mmol/LLow9 - 17 mmol/LMSt. John of God Hospital, KYBun/Cre Sqgke86BcbjkMarymount Hospital, [place] Calcium [Mass/Vol]9.1 mg/dL8.6 - 10.4 mg/dLMarymount Hospital, KYChloride [Moles/Vol]99 mmol/L98 - 107 mmol/LMSt. John of God Hospital, KYCO2 [Moles/Vol]29 mmol/L 20 - 31 mmol/LMSt. John of God Hospital, KYCreatinine [Mass/Vol]0.82 mg/dL0.7 - 1.2 mg/dL [facility], KYGFR >60>60 mL/minMarymount Hospital, KYGFR Non->60>60 mL/minMarymount Hospital, KYGFR/1.73 sq M predicted among non-blacks MDRD (S/P/Bld) [Vol rate/Area][facility], KYComment on above:Average GFR for 70 or more years old: 75 mL/min/1.73sq m Chronic Kidney Disease: <60 mL/min/1.73sq m Kidney failure: <15 mL/min/1.73sq m eGFR calculated using average adult body mass. Additional eGFR calculator available at: http://www.[employer]/multiple_crcl_2012.htm GFR/1.73 sq M predicted among non-blacks MDRD (S/P/Bld) [Vol rate/Area]NOT REPORTEDMarymount Hospital, KYGlucose [Mass/Vol]112 mg/lTCmcp94 - 99 mg/dLMarymount Hospital, KYInterpretation and review of laboratory resultsAbnormalMarymount Hospital, KYPotassium [Moles/Vol]4.0 mmol/L3.7 - 5.3 mmol/LMSt. John of God Hospital, KYSodium [Moles/Vol]135 mmol/L135 - 144 mmol/LMSt. John of God Hospital, KYUrea nitrogen [Mass/Vol]14 mg/dL8 - 23 mg/dLMarymount Hospital, KYBasic Metabolic Profon 09-22-2020(cont.)NormalTrinity Health System East Campus on above:Result Comment: Average GFR for 70 or more years old: 75 mL/min/1.73sq m Chronic Kidney Disease: <60 mL/min/1.73sq m Kidney failure: <15 mL/min/1.73sq m eGFR calculated using average adult body mass. Additional eGFR calculator available at: http://www.[employer]/multiple_crcl_2012.htmPerformed By: #### BMP, CDP #### [facility] [address] [facility] [place] [address] Enrollment Clerk: María Jackson gap [Moles/Vol]7 mmol/LLow9-17[facility] CenterCombronson battle [facility] hospital on above:Performed By: #### BMP, CDP #### [facility] [address] [facility] [place] [address] Enrollment Clerk: MUKUND Jackson/CRE Ncndb19Zdarju5-16ShfrgUniversity Hospitals Conneaut Medical CenterCombronson battle creek hospital on above:Performed By: #### BMP, CDP #### [facility] [address] [facility] [place] [address] Enrollment Clerk: OPAL Jacksonalcium [Mass/Vol]9.1 mg/dLNormal8.6-10.4[facility] CenterCombronson battle creek hospital on above:Performed By: #### BMP, CDP #### [facility] [address] [facility] [place] [address] Enrollment Clerk: OPAL Jacksonhloride [Moles/Vol]99 mmol/QGblnmj45-061McgktUniversity Hospitals Conneaut Medical CenterCombronson battle creek hospital on above:Performed By: #### BMP, CDP #### [facility] [address] [facility] [place] [address] Enrollment Clerk: Jeremías Donald MDCO2 [Moles/Vol]29 mmol/XDavdpb16-56Fycuc [facility] HospitalCombronson [facility] on above:Performed By: #### BMP, CDP #### [facility] [address] [place] [address] Enrollment Clerk: OPAL Jacksonreatinine [Mass/Vol]0.82 mg/dLNormal0.70-1.20 [facility] CenterCombronson battle creek hospital on above:Performed By: #### BMP, CDP #### [facility] [address] [place] [address] Enrollment Clerk: Jeremías Donald MDGFR, Amer>60Normal>60[facility] HospitalCombronson battle [facility] hospital on above:Performed By: #### BMP, CDP #### [facility] [address] [place] [address] Enrollment Clerk: Jeremías Donald MDGFR,non Amer>60Normal>60[facility] HospitalCombronson battle [facility] hospital on above:Performed By: #### BMP, CDP #### [facility] [address] [place] [address] Enrollment Clerk: Jeremías Donald MDGlucose [Mass/Vol]112 mg/sADwfp96-38Arbik [facility] HospitalCombronson battle [facility] hospital on above:Performed By: #### BMP, CDP #### [facility] [address] [place] [address] Enrollment Clerk: REGGIE Jacksonotassium [Moles/Vol]4.0 mmol/LNormal3.7-5.3 [facility] CenterCombronson battle creek hospital on above:Performed By: #### BMP, CDP #### [facility] [place] [address] Enrollment Clerk: KATERINA Jacksonodium [Moles/Vol]135 mmol/KLhyhgi798-175Jlgyj [facility] HospitalComment on above:Performed By: #### BMP, CDP #### [facility] [address] [facility] [place] [address] Enrollment Clerk: Jeremías Donald MDUrea nitrogen [Mass/Vol]14 mg/dLNormal8-23[facility] CenterCombronson battle creek hospital on above:Performed By: #### BMP, CDP #### [facility] [address] [place] [address] Enrollment Clerk: KATERINA Jacksontaging:NOT REPORTEDNormalUniversity Hospitals Conneaut Medical CenterCombronson battle creek hospital on above:Performed By: #### BMP, CDP #### [facility] [address] [place] [address] Enrollment Clerk: OPAL JacksonBC Auto Differentialon [id number] (Bld) [#/Vol]0.03 10*3/[facility] [place], KYBasophils/100 WBC (Bld)0 %0 - 2 % [facility]- [place], KYDifferential TypeNOT REPORTEDCleveland Clinic [facility] Hospital [place], KYEosinophils (Bld) [#/Vol]0.10 10*3/[facility]- [place], KYEosinophils/100 WBC (Bld)1 %1 - 4 %[facility]- [place], KYErythrocyte distribution width (RBC) [Ratio]12.0 %11.8 - 14.4 %[facility]- [place], KYHematocrit (Bld) [Volume fraction]39.6 %Low40.7 - 50.3 %[facility]- [place], KYHemoglobin (Bld) [Mass/Vol]12.8 g/dLLow13 - 17 g/dLSelect Medical Specialty Hospital [facility] [place]- [place], KYImmature granulocytes (Bld) [#/Vol]0.03 10*3/uLSelect Medical Specialty Hospital [facility] [place]- [place], KYImmature granulocytes (Bld) [#/Vol]0 %0[facility]- [place], KYInterpretation and review of laboratory resultsAbnormalMercy Health- [place], KYLymphocytes (Bld) [#/Vol]0.92 10*3/uLLowMarymount Hospital, KYLymphocytes/100 WBC (Bld)8 %Low24 - 43 %[facility], [facility] (RBC) [Entitic mass]32.1 pg25.2 - 33.5 pgMarymount Hospital, MAMCHC (RBC) [Mass/Vol]32.3 g/dL28.4 - 34.8 g/dLMarymount Hospital, MAMCV (RBC) [Entitic vol]99.2 fL82.6 - 102.9 fLMarymount Hospital, MAMonocytes (Bld) [#/Vol]1.26 10*3/uLHighMarymount Hospital, KYMonocytes/100 WBC (Bld)11 %3 - 12 % [place], KYPlatelet mean volume (Bld) [Entitic vol]10.0 fL8.1 - 13.5 fL [place], KYPlatelets (Bld) [#/Vol]NOT REPORTEDSh[place], [place] Platelets (Bld) [#/Vol]203 10*3/uLMarymount Hospital, MARBC (Bld) [#/Vol]3.99 10*6/uLLow4.21 - 5.77 m/[facility], MARBC morphology finding Nom (Bld) NOT REPORTEDMarymount Hospital, MASegmented neutrophils/100 WBC (Bld)80 %High36 - 65 %[facility], MASegs Absolute8.94HighMarymount Hospital, MAWBC (Bld) [#/Vol]11.3 10*3/uLMarymount Hospital, KYWBC (Bld) [#/Vol]0.0 10*3/uL0.0 per 100 WBCMarymount Hospital, MAWBC MorphologyNOT REPORTEDMarymount Hospital, MACBC with Diffon [id number]. Basophil0.03 k/uLNormal0.00-0.20[facility] Comment on above:Performed By: #### BMP, CDP #### [facility] [address] [place] [address] Enrollment Clerk: MDAbs. RenettaImm.Granulocyte0.03 k/uLNormal0.00-0.30 [facility] CenterComment on above:Performed By: #### BMP, CDP #### [facility] [address] [place] [address] Enrollment Clerk: Mike Jackson.Neutrophil (Seg)8.94 k/uLHigh1.50-8.10MerColumbia Basin HospitalComment on above:Performed By: #### BMP, CDP #### [facility] [address] [place] [address] Enrollment Clerk: Jeremías Donald MDBasophils/100 WBC (Bld)0 %Normal0-2[facility] HospitalComment on above:Performed By: #### BMP, CDP #### [facility] [address] [place] [address] Enrollment Clerk: DENISE Jacksonosinophils (Bld) [#/Vol]0.10 10*3/uLNormal 0.00-0.44MerColumbia Basin HospitalComment on above:Performed By: #### BMP, CDP #### [facility] [address] [place] [address] Enrollment Clerk: DENISE Jacksonosinophils/100 WBC (Bld)1 %Normal1-4[facility] CenterComment on above:Performed By: #### BMP, CDP #### [facility] [address] [place] [address] Enrollment Clerk: Jeremías Donald MDErythrocyte distribution width (RBC) [Ratio] 12.0 %Czxkfl86.8-14.4[facility] CenterComment on above:Performed By: #### BMP, CDP #### [facility] [facility] [place] [address] Enrollment Clerk: Jeremías Donald MDHematocrit (Bld) [Volume fraction]39.6 %Low 40.7-50.3Mbethesda north hospitaly [facility] HospitalCombronson battle creek hospital on above:Performed By: #### BMP, CDP #### [facility] [address] [place] [address]. [place] [address] Enrollment Clerk: Jeremías Donald MDHemoglobin (Bld) [Mass/Vol]12.8 g/dLLow 13.0-17.0[facility] CenterCombronson battle creek hospital on above:Performed By: #### BMP, CDP #### [facility] [address] [place] [address]. [place] [address] Enrollment Clerk: Jeremías Donald MDImmature granulocytes (Bld) [#/Vol]0 %Normal0 [facility] CenterCombronson battle creek hospital on above:Performed By: #### BMP, CDP #### [facility] [address] [place] [address]. [place] [address] Enrollment Clerk: Jeremías Donald MDLymphocytes (Bld) [#/Vol]0.92 10*3/uLLow 1.10-3.70[facility] CenterCombronson battle [facility] hospital on above:Performed By: #### BMP, CDP #### [facility] [address] [place] [address]. [place] [address] Enrollment Clerk: Frances Jacksonmphocytes/100 WBC (Bld)8 %Qmc46-53CmpwxUniversity Hospitals Conneaut Medical CenterCombronson battle creek hospital on above:Performed By: #### BMP, CDP #### [facility] [address] [place] [address]. [place] [address] Enrollment Clerk: TREVER JacksonCH (RBC) [Entitic mass]32.1 qqPhevaw39.2-33.5 [facility] CenterComment on above:Performed By: #### BMP, CDP #### [facility] [address] [facility] [place] [address] Enrollment Clerk: TREVER JacksonCHC (RBC) [Mass/Vol]32.3 g/tDWzrhwp23.4-34.8 [facility] CenterComment on above:Performed By: #### BMP, CDP #### [facility] [address] [facility] [place] [address] Enrollment Clerk: TREVER JacksonCV (RBC) [Entitic vol]99.2 qOVxcjru48.6-102.9 [facility] CenterCombronson [facility] hospital on above:Performed By: #### BMP, CDP #### [facility] [address] [place] [address]. [place] [address] Enrollment Clerk: TREVER Jacksononocytes (Bld) [#/Vol]1.26 10*3/uLHigh 0.10-1.20[facility] CenterCombronson [facility] hospital on above:Performed By: #### BMP, CDP #### [facility] [facility] [place] [address] Enrollment Clerk: TREVER Jacksononocytes/100 WBC (Bld)11 %Normal3-12[facility] CenterCombronson battle [facility] hospital on above:Performed By: #### BMP, CDP #### [facility] [facility] [place] [address] Enrollment Clerk: Renae Jacksonutrophil (Seg)80 %Paqw13-19GdifwUniversity Hospitals Conneaut Medical CenterComment on above:Performed By: #### BMP, CDP #### [facility] [address] [place] [address]. [place] [address] Enrollment Clerk: SRIRAM Jackson Automated0.0 per 100 WBCNormal0.0[facility] on above:Performed By: #### BMP, CDP #### [facility] [address] [facility] [place] [address] Enrollment Clerk: Kayleigh Jackson mean volume (Bld) [Entitic vol]10.0 fL Normal8.1-13.5[facility] CenterCombronson battle creek hospital on above:Performed By: #### BMP, CDP #### [facility] [address] [place] [address]. [place] [address] Enrollment Clerk: Johnie Jackson (Bld) [#/Vol]203 10*3/bSWcydqu987-497 [facility] CenterCombronson battle [facility] hospital on above:Performed By: #### BMP, CDP #### [facility] [address] [place] [address]. [place] [address] Enrollment Clerk: JOSE Jackson (Bld) [#/Vol]3.99 10*6/uLLow4.21-5.77[facility] on above:Performed By: #### BMP, CDP #### [facility] [address] [place] [address]. [place] [address] Enrollment Clerk: SOM Jackson (Bld) [#/Vol]11.3 10*3/uLNormal3.5-11.3 [facility] on above:Performed By: #### BMP, CDP #### [facility] [address] [place] [address]. [place] [address] Enrollment Clerk: Zach Jackson PerformedNOT REPORTEDrmalTrinity Health System East Campus on above:Performed By: #### BMP, CDP #### [facility] [address] [place] [address], [place] [address] Enrollment Clerk: REGGIE Jacksonlatelets (Bld) [#/Vol]NOT REPORTEDNormalUniversity Hospitals Conneaut Medical CenterCombronson battle [facility] hospital on above:Performed By: #### BMP, CDP #### [facility] [address] [facility] [place] [address] Enrollment Clerk: JOSE Jackson morphology finding Nom (Bld)NOT REPORTED NormalUniversity Hospitals Conneaut Medical CenterCombronson battle creek hospital on above:Performed By: #### BMP, CDP #### [facility] [address] [facility] [place] [address] Enrollment Clerk: SOM Jackson MorphologyNOT REPORTEDNormalUniversity Hospitals Conneaut Medical CenterCombronson [facility] hospital on above:Performed By: #### BMP, CDP #### [facility] [address] [place] [address]. [place] [address] Enrollment Clerk: OPAL JacksonOVID-19on [id number]-CoV-2Not DetectedNot [facility] on above: The specimen is NEGATIVE for SARS-CoV-2, the novel coronavirus associated with COVID-19. A negative result does not rule out COVID-19. This test has been authorized by the FDA under an Emergency Use Authorization (EUA) for use by authorized laboratories. [employer] SARS-CoV-2 Reagents for [employer] are designed to detect the virus that causes COVID-19 in patients with signs and symptoms of infection who are suspected of COVID-19. An individual without symptoms of COVID-19 and who is not shedding SARS-CoV-2 virus would expect to have a negative (not detected) result in this assay. Fact sheet for Healthcare Providers: https://www.fda.gov/media/221055/download Fact sheet for Patients: https://www.fda.gov/media/805483/download METHODOLOGY: RT-PCR YIZJ-AtE-8FpeuvOhio State East Hospital BHBWVN-UeP-0, [facility] .NASOPHARYNGEAL SWABMarymount Hospital, BCMOJW-FjV-0vp [id number]-CoV-2Not DetectedPemiscot Memorial Health SystemsalNOTDEOhioHealth Hardin Memorial HospitalComment on above:Result Comment: The specimen is NEGATIVE for SARS-CoV-2, the novel coronavirus associated with COVID-19. A negative result does not rule out COVID-19. This test has been authorized by the FDA under an Emergency Use Authorization (EUA) for use by authorized laboratories. Clean Membranes SARS-CoV-2 Reagents for [employer] are designed to detect the virus that causes COVID-19 in patients with signs and symptoms of infection who are suspected of COVID-19. An individual without symptoms of COVID-19 and who is not shedding SARS-CoV-2 virus would expect to have a negative (not detected) result in this assay. Fact sheet for Healthcare Providers: https://www.fda.gov/media/147125/download Fact sheet for Patients: https://www.fda.gov/media/532486/download METHODOLOGY: RT-PCRPerformed By: #### COVID #### [facility] [address] [place] [address] Enrollment Clerk: Jeremías Donald MD [address] [address] Enrollment Clerk: Melquiades LockhartFlower HospitalComment on above:Performed By: #### COVID #### [facility] [address] [place] [address] Enrollment Clerk: Jeremías Donald MD [facility] [employer] [address] [place] [address] Enrollment Clerk: Mario Lockhart-2,[facility] Comment on above:Performed By: #### COVID #### [facility] [address] [place] [address] Enrollment Clerk: Jeremías Donald MD [facility] [address] [place] [address] Enrollment Clerk: SONNY Lockhart-CoV-2on [id number]-2 Source .NASOPHARYNGEAL SWABNormalUniversity Hospitals Conneaut Medical CenterComment on above:Performed By: #### COVID #### [facility] [address] [place] [address] Enrollment Clerk: Jeremías Donald MD [facility] [address] [place] [address] Enrollment Clerk: Rah Mccollum MDEKG 12 Leadon 15-87-2633Kbugco Eaxz06ATAZeied Health- [place], [place] Ebug47bmeyymmShvgv Health- [place], [place]-R Reptbpoj466 [facility]- [place], KYQ-T Dfgatqys582 [facility]- [place], KYQRS Modghmgz21 [facility]- [place], KYQTc Calculation (Pa)408 [facility]- [place], KYR Kkgh30jzzwdlfBrndq Health- [place], KYT Vrya63eywwcofYinxu Health- [place], KYVentricular Hedc12CFBLepwl Health- [place], KYEdi, Mhpn Incoming Ekg Results From [facility] [place] - 09/02/2020 8:25 AM EST Normal sinus rhythm Possible Anterior infarct , age undetermined Abnormal ECG When compared with ECG of 02-APR-2018 10:00, Minimal criteria for Inferior infarct are no longer PresentSelect [facility] [place]- [place], [place] Normal sinus rhythm Possible Anterior infarct , age undetermined Abnormal ECG When compared with ECG of 02-APR-2018 10:00, Minimal criteria for Inferior infarct are no longer PresentMarymount Hospital, KYMRSA DNA Probe, Nasalon [id number], DNA, NasalNEGATIVE: MRSA DNA not detected by nucleic acid amplification.NEGATIVE: MRSA DNA not detected by nucleic acid amplificatiMarymount Hospital, KYComment on above: Results should be used as an adjunct to nosocomial control efforts to identify patients needing enhanced precautions. The test is not intended to identify patients with staphylococcal infections. Results should not be used to guide or monitor treatment for MRSA infections. Specimen Description.NASAL SWABSelect Medical Specialty Hospital [facility] [place]- [place], KYMRSA, DNA, Nasalon 09-02-2020 MRSA, DNA, NasalNEGATIVE: MRSA DNA not detected by nucleic acid amplification. [facility] System East CampusComment on above:Result Comment: Results should be used as an adjunct to nosocomial control efforts to identify patients needing enhanced precautions. The test is not intended to identify patients with staphylococcal infections. Results should not be used to guide or monitor treatment for MRSA infections. Performed By: #### MRSANO #### [facility] [address] [place], [place] [id number] Enrollment Clerk: Jeremías Donald MD [facility] [address] [place], [place] [id number] Enrollment Clerk: MUKUND Lockhart & Creatinineon [id number] [Mass/Vol]1.06 mg/dL0.7 - 1.2 mg/dLMarymount Hospital, KYGFR >60 >60 mL/minMarymount Hospital, KYGFR Non->60>60 mL/minMarymount Hospital, KYGFR/1.73 sq M predicted among non-blacks MDRD (S/P/Bld) [Vol rate/Area] NOT REPORTEDMarymount Hospital, KYGFR/1.73 sq M predicted among non-blacks MDRD (S/P/Bld) [Vol rate/Area][facility], KYComment on above:Average GFR for 70 or more years old: 75 mL/min/1.73sq m Chronic Kidney Disease: <60 mL/min/1.73sq m Kidney failure: <15 mL/min/1.73sq m eGFR calculated using average adult body mass. Additional eGFR calculator available at: http://www.SeeMe.com/multiple_crcl_2012.htm Urea nitrogen [Mass/Vol]23 mg/dL8 - 23 mg/dLMarymount Hospital, MAISHABUN + Creatinine on 09-01-2020(cont.)[facility] Samaritan HospitalComment on above:Result Comment: Average GFR for 70 or more years old: 75 mL/min/1.73sq m Chronic Kidney Disease: <60 mL/min/1.73sq m Kidney failure: <15 mL/min/1.73sq m eGFR calculated using average adult body mass. Additional eGFR calculator available at: http://www.SeeMe.[employer]/multiple_crcl_2012.htmPerformed By: #### CDP, BUNCRT, LYTE #### [facility] [place] [address] Enrollment Clerk: OPAL Jacksonreatinine [Mass/Vol]1.06 mg/dLNormal0.70-1.20 [facility]aut Medical CenterComment on above:Performed By: #### CDP, BUNCRT, LYTE #### [facility] [address] [place] [address]. [place] [address] Enrollment Clerk: Jeremías Donald MDGFR, Amer>60Normal>60[facility] HospitalCombronson battle [facility] hospital on above:Performed By: #### CDP, BUNCRT, LYTE #### [facility] [address] [place] [address]. [place] [address] Enrollment Clerk: Jeremías Donald MDGFR,non Amer>60Normal>60[facility] HospitalCombronson battle creek hospital on above:Performed By: #### CDP, BUNCRT, LYTE #### [facility] [address] [place] [address]. [place] [address] Enrollment Clerk: Jeremías Donald MDUrea nitrogen [Mass/Vol]23 mg/dLNormal8-23[facility] HospitalComment on above:Performed By: #### CDP, BUNCRT, LYTE #### [facility] [address] [place] [address]. [place] [address] Enrollment Clerk: KATERINA Jacksontaging:NOT REPORTEDNormalMercy Virginia Mason HospitalComment on above:Performed By: #### CDP, BUNCRT, LYTE #### [facility] [address] [place] [address] [place] [address] Enrollment Clerk: Jeremías Donald [facility] Auto Differentialon [id number] (Bld) [#/Vol]0.04 10*3/[facility]- [place], KYBasophils/100 WBC (Bld)1 %0 - 2 % [facility], KYDifferential TypeNOT REPORTEDSelect Medical Specialty [facility] [place]- [place], KYEosinophils (Bld) [#/Vol]0.14 10*3/[facility]- [place], KYEosinophils/100 WBC (Bld)2 %1 - 4 %[facility]- [place], KYErythrocyte distribution width (RBC) [Ratio]12.3 %11.8 - 14.4 %[facility]- [place], KYHematocrit (Bld) [Volume fraction]46.2 %40.7 - 50.3 % [facility] [place]- [place], KYHemoglobin (Bld) [Mass/Vol]14.7 g/dL13 - 17 g/dLCleveland Clinic Mentor Hospital [place], KYImmature granulocytes (Bld) [#/Vol]0.01 10*3/[facility]- [place], KYImmature granulocytes (Bld) [#/Vol]0 %0[facility] [place]- [place], KYInterpretation and review of laboratory resultsAbnormACMC Healthcare System [place], KYLymphocytes (Bld) [#/Vol]1.43 10*3/[facility]- [place], KYLymphocytes/100 WBC (Bld)19 %Low24 - 43 % [facility] [place], KYMCH (RBC) [Entitic mass]31.8 pg25.2 - 33.5 pgCleveland Clinic [facility] [place], KYMCHC (RBC) [Mass/Vol]31.8 g/dL28 - 38 g/dLSelect Medical Specialty Hospital [facility] [place]- [place], KYMCV (RBC) [Entitic vol]100.0 fL82.6 - 102.9 fLSelect Medical Specialty Hospital - [place]- [place], KYMonocytes (Bld) [#/Vol] 0.53 10*3/uLSelect Medical Specialty Hospital - [place]- [place], KYMonocytes/100 WBC (Bld)7 %3 - 12 %[facility]- [place], KYPlatelet mean volume (Bld) [Entitic vol]9.5 fL8.1 - 13.5 fLMarymount Hospital, KYPlatelets (Bld) [#/Vol]233 10*3/[facility], KYPlatelets (Bld) [#/Vol]NOT REPORTEDMarymount Hospital, MARBC (Bld) [#/Vol]4.62 10*6/uL4.21 - 5.77 m/[facility], MARBC morphology finding Nom (Bld)NOT REPORTEDMarymount Hospital, MASegmented neutrophils/100 WBC (Bld)71 %High36 - 65 %[facility], MASegs Absolute5.25[facility], KYWBC (Bld) [#/Vol]7.4 10*3/[facility], KYWBC (Bld) [#/Vol]NOT REPORTED0.0 per 100 WBCMarymount Hospital, [place] WBC MorphologyNOT REPORTEDMarymount Hospital, MACBC with Diffon [id number]. Basophil0.04 k/uLNormal0.00-0.20[facility] Conneaut Medical CenterComment on above: Performed By: #### NOMAN SALAZAR LYTE #### [facility] [address] [place] [address] Enrollment Clerk: Mike Jackson.Imm.Granulocyte0.01 k/uLNormal0.00-0.30 [facility] Conneaut Medical CenterComment on above:Performed By: #### CDP, BUNCRT, LYTE #### [facility] [address] [place] [address] Enrollment Clerk: Mike Jackson.Neutrophil (Seg)5.25 k/uLNormal1.50-8.10 [facility] Medical CenterComment on above:Performed By: #### CDP, BUNCRT, LYTE #### [facility] [address] [place] [address] Enrollment Clerk: Jeremías Donald MDBasophils/100 WBC (Bld)1 %Normal0-2[facility] HospitalComment on above:Performed By: #### CDP, BUNCRT, LYTE #### [facility] [place] [address] Enrollment Clerk: Jeremías Donald MDEosinophils (Bld) [#/Vol]0.14 10*3/uLNormal 0.00-0.44[facility] HospitalComment on above:Performed By: #### CDP, BUNCRT, LYTE #### [facility] [address] [place] [address] Enrollment Clerk: DENISE Jacksonosinophils/100 WBC (Bld)2 %Normal1-4[facility] HospitalComment on above:Performed By: #### MARTIN BUNCRT, LYTE #### [facility] [address] [place] [address]. [place] [address] Enrollment Clerk: Jeremías Donald MDErythrocyte distribution width (RBC) [Ratio] 12.3 %Wegtll00.8-14.4MerColumbia Basin HospitalComment on above:Performed By: #### MARTIN BUNCRT, LYTE #### [facility] [address] [place] [address]. [place] [address] Enrollment Clerk: Jeremías Donald MDHematocrit (Bld) [Volume fraction]46.2 %Normal 40.7-50.3[facility] HospitalComment on above:Performed By: #### CDP, BUNCRT, LYTE #### [facility] [address] [place] [address]. [place] [address] Enrollment Clerk: Jeremías Donald MDHemoglobin (Bld) [Mass/Vol]14.7 g/dLNormal 13.0-17.0MerColumbia Basin HospitalComment on above:Performed By: #### CDP, BUNCRT, LYTE #### [facility] [address] [place] [address] Enrollment Clerk: Jeremías Donald MDImmature granulocytes (Bld) [#/Vol]0 %Normal0 [facility]aut Medical CenterCombronson battle creek hospital on above:Performed By: #### CDP, BUNCRT, LYTE #### [facility] [address] [place] [address] Enrollment Clerk: Jeremías Donald MDLymphocytes (Bld) [#/Vol]1.43 10*3/uLNormal 1.10-3.70[facility] Medical CenterCombronson battle creek hospital on above:Performed By: #### CDP, BUNCRT, LYTE #### [facility] [address] [place] [address] Enrollment Clerk: Mitchel Jacksonhocytes/100 WBC (Bld)19 %Qkd51-99PivjeUniversity Hospitals Conneaut Medical CenterCombronson battle creek hospital on above:Performed By: #### CDP, BUNCRT, LYTE #### [facility] [address] [place] [address] Enrollment Clerk: ANSHU Jackson (RBC) [Entitic mass]31.8 hgFxunre66.2-33.5 [facility] CenterCombronson battle creek hospital on above:Performed By: #### CDP, BUNCRT, LYTE #### [facility] [address] [place] [address] Enrollment Clerk: ANSHU JacksonC (RBC) [Mass/Vol]31.8 g/mBFmkpoh22.0-38.0 [facility] CenterCombronson battle creek hospital on above:Performed By: #### CDP, BUNCRT, LYTE #### [facility] [address] [place] [address], [place] [address] Enrollment Clerk: TREVER JacksonCV (RBC) [Entitic vol]100.0 wAUsrupt19.6-102.9 [facility] on above:Performed By: #### CDP, BUNCRT, LYTE #### [facility] [address] [facility] [place] [address] Enrollment Clerk: TREVER Jacksononocytes (Bld) [#/Vol]0.53 10*3/uLNormal 0.10-1.20[facility] on above:Performed By: #### MARTIN, BUNCRT, LYTE #### [facility] [address] [place] [address]. [place] [address] Enrollment Clerk: TREVER Jacksononocytes/100 WBC (Bld)7 %Normal3-12[facility] on above:Performed By: #### MARTIN, BUNCRT, LYTE #### [facility] [address] [place] [address]. [place] [address] Enrollment Clerk: Adolfo Jackson (Seg)71 %Kmme54-84FfafkUniversity Hospitals Conneaut Medical CenterCombronson battle creek hospital on above:Performed By: #### MARTIN, BUNCRT, LYTE #### [facility] [address] [place] [address]. [place] [address] Enrollment Clerk: Kayleigh Jackson mean volume (Bld) [Entitic vol]9.5 fL Normal8.1-13.5[facility] Medical CenterCombronson battle creek hospital on above:Performed By: #### CDP, BUNCRT, LYTE #### [facility] [place] [place] [address] Enrollment Clerk: Johnie Jackson (Bld) [#/Vol]233 10*3/yIHtvqwm288-383 [facility] Medical CenterCombronson battle creek hospital on above:Performed By: #### CDP, BUNCRT, LYTE #### [facility] [address] [place] [address] Enrollment Clerk: JOSE Jackson (Bld) [#/Vol]4.62 10*6/uLNormal4.21-5.77 [facility] on above:Performed By: #### CDP, BUNCRT, LYTE #### [facility] [address] [place] [address] Enrollment Clerk: SOM Jackson (Bld) [#/Vol]7.4 10*3/uLNormal3.5-11.3MBrown [facility] on above:Performed By: #### CDP, BUNCRT, LYTE #### [facility] [address] [place] [address] Enrollment Clerk: Zach Jackson PerformedNOT REPORTEDNormalMercy St. [facility] on above:Performed By: #### CDP, BUNCRT, LYTE #### [facility] [address] [place] [address] Enrollment Clerk: SRIRAM Jackson AutomatedNOT REPORTEDNormal0.0[facility] on above:Performed By: #### CDP, BUNCRT, LYTE #### [facility] [address] [place] [address] Enrollment Clerk: Johnie Jackson (Blelizabeth) [#/Vol]NOT REPORTEDNormalMercy St. [facility] on above:Performed By: #### CDP, BUNCRT, LYTE #### [facility] [address] [place] [address] Enrollment Clerk: JOSE Jackson morphology finding Nom (Bld)NOT REPORTED NormalUniversity Hospitals Conneaut Medical CenterComment on above:Performed By: #### NOMAN SALAZAR LYTE #### [facility] [address] [place] [address] Enrollment Clerk: SOM Jackson MorphologyNOT REPORTEDNormalMerColumbia Basin HospitalComment on above:Performed By: #### NOMAN SALAZAR LYTE #### [facility] [address] [place] [address] Enrollment Clerk: Jeremías Donald MDElectrolyte Panelon 42-75-2078Fuvhr gap [Moles/Vol]10 mmol/L9 - 17 mmol/[facility]- [place], KYChloride [Moles/Vol]102 mmol/L98 - 107 mmol/[facility] [place], KYCO2 [Moles/Vol]27 mmol/L20 - 31 mmol/L [facility], KYPotassium [Moles/Vol]4.2 mmol/L3.7 - 5.3 mmol/LMSt. Vincent Hospital [place], KYSodium [Moles/Vol]139 mmol/L135 - 144 mmol/[facility]- [place], [place] Electrolyteson 75-05-0558Cwxck gap [Moles/Vol]10 mmol/LNormal9-17[facility] Medical CenterComment on above:Performed By: #### NOMAN SALAZAR LYTE #### [facility] [address] [place] [address] Enrollment Clerk: OPAL Jacksonhloride [Moles/Vol]102 mmol/CWdszko87-228GngfsUniversity Hospitals Conneaut Medical CenterCombronson battle creek hospital on above:Performed By: #### NOMAN SALAZAR LYTE #### [facility] [address] [place] [address] Enrollment Clerk: OPAL JacksonO2 [Moles/Vol]27 mmol/EPfowok91-18DrjqfUniversity Hospitals Conneaut Medical CenterComment on above:Performed By: #### CDP, BUNCRT, LYTE #### [facility] [place] [address] Enrollment Clerk: REGGIE Jacksonotassium [Moles/Vol]4.2 mmol/LNormal3.7-5.3 [facility] Medical CenterCombronson battle creek hospital on above:Performed By: #### CDP, BUNCRT, LYTE #### [facility] [place] [address] Enrollment Clerk: Jeremías Donald MDSodium [Moles/Vol]139 mmol/IOmnszg108-417PyycwUniversity Hospitals Conneaut Medical CenterCombronson battle creek hospital on above:Performed By: #### MARTIN BUNCRT, LYTE #### [facility] [address] [place] [address] Enrollment Clerk: ALENA Jackson, DNA, Nasalon 77-90-0982Gidhgvrr Description.NASAL SWABNormHenry County HospitalComment on above:Performed By: #### MRSANO #### [facility] [address] [place] [address] Enrollment Clerk: Jeremías Donald MD [address] [id number] Enrollment Clerk: Rah Mccollum MDTYPE AND SCREENon 90-10-0892MDU/RhPositiveMarymount Hospital, KYArm Band [id number]- [place], KYExpiration Date 09/23/2020,2359[facility], KYType + Screenon 58-83-7445Ophk + ScreenSample Expiration 09/23/2020,2359 Arm Band Number [id number] ABO/Rh(D) O POSITIVE Antibody Screen NEGATIVENoUK HealthcareCombronson battle creek hospital on above:Performed By: #### TYS #### [facility] [address] [place], [place] [address], [place] [address] Enrollment Clerk: Jeremías Donald MD Vital Signs Date TimeVital SignValuePerforming KbrbbhufjJeglptwz18-42-6925 13:14-0500Blood Pressure LocationMichael NILL [phone]-MfikoThe [facility] [place] 09-29-2024 13:14-0500Diastolic blood vgupkygl96 mm[Hg]Amadeo NILL [phone]-UtxyqThe [facility] [place] 09-29-2024 13:14-0500Heart rate72 /minMichael NILL [phone]-ZnpiuThe [facility] [place] 09-29-2024 13:14-0500Respiratory rate16 /minMichael NILL [phone]-ZcjopThe [facility] [place] 09-29-2024 13:14-0500Systolic blood bjoswjas884 mm[Hg]Amadeo NILL [phone]-GxcwuThe [facility] [place] 11-08-2023 09:07-0500Body diwaot797.[address]02-23-2024 09:07-0500Body mass index (BMI) [Ratio]23.42 kg/m2Pmh [address] [place] [address] 11-08-2023 09:07-0500Body mbjykb29.[address] [place], [place] 5604302-07-2024 08:08-0500Body slxovx012.7 cmJr. Stepanic DO Work Phone: [facility] Cancer CenterTbisbubjdv07-09-4343 08:08-0500Body mass index (BMI) [Ratio]23.11 kg/m2Jr. Stepanic DO Work Phone: noBothwell Regional Health CenterObxogzdujn39-35-9278 08:08-0500Body lzpciq29.95 kgJr. Stepanic DO Work Phone: [facility] Cancer CenterVvmltwgcsh08-13-4363 11:33-0500Body Temperature 98.8 [degF][facility], CD48-40-9853 11:33-0500BP Kaqtvzohu69 mm[Hg][facility], TB58-35-3642 11:33-0500BP Ncotvngy548 mm[Hg] [facility], FG28-53-9549 11:33-0500Pulse (Heart Rate)65 /min [facility], LM31-53-2532 11:33-0500Pulse Zattilzb95 %[facility], KH53-91-8077 11:33-0500Respiratory Rate17 /minAv[facility] Health System [facility], PR64-54-0544 06:08-0500BMI (Body Mass Index)23.63 kg/m2 [facility], RE33-66-9977 06:08-0500Body .5 kgAvita Health System [facility], TH25-51-0453 06:08-7422Gegnfq738.7 cmAvita Health System [facility], ZN34-97-5268 11:37-0500BMI (Body Mass Index)23.63 kg/m[address], NB76-41-4070 11:37-0500Body Olhcqhxvewk53 [degF][address], QA91-78-1413 11:37-0500Body ggpuvn81.[address] [place] [address], SM79-54-4952 11:37-0500BP Otjkbeeor76 mm[Hg][address], CV71-85-3781 11:37-0500BP Tyonvulu121 mm[Hg][address], WF65-00-3210 11:37-0528Gfdhdb716.[address], DZ48-67-3650 11:37-0500Pulse (Heart Rate)62 /minSta [address] [place] [address], EL06-98-7855 11:37-0500Pulse Yvydorlg91 %[address], LI52-23-9483 11:37-0500Respiratory Rate16 /minSta [address] [place] [address] [place], [place] Encounters Encounter DateEncounter TypeCare ProviderFacilityStart: 04-26-2025 End: 03-73-8894vynbalhactHLPSWO [facility] Start: 45-70-1452jfxfrcnkwfYvrntnf R NILLFacility: BellevueStart: 10-27-2024 End: 82-99-7395yzwxgikjztXapduoh R NILLFacility:[facility] InstituteueStart: 10-27-2024 End: 98-12-8743Ssjbemb encounter procedureMichael R NILL [phone]-CuqqoMiami Valley Hospital [facility] [place] Start: 10-22-2024 End: 09-09-8611Nahsdg outpatient visit 15 minutesSandra Burr NP Work Phone: noms FB ORTHOPAEDICSComment on above:Status post total knee replacement, left (Primary Dx); Chronic pain of left kneeStart: 10-22-2024 End: 01-71-7004facidvnnrfQYKRW T OLSENNot AvailableStart: 10-22-2024 End: 64-84-7828Veokqk Yash Burr NP Work Phone: NONA FB ORTHOPAEDICSStart: 10-22-2024 End: 14-69-7672Qtwoch Yash Burr DAIRY FEED SALES CONSULTANT Work Phone: noms FB ORTHOPAEDICSStart: 10-13-2024 End: 62-37-2051cumpwkwbwuBbacpiw R NILLFacility:FTMCStart: 10-13-2024 End: 93-75-1072Tef Drop offMichael R NILL [facility] Start: 10-13-2024 End: 60-37-2440rhlbscxbcsRbgovac R NILLFacility:[facility] HospitalevueStart: 10-13-2024 End: 04-26-3193Uxqgozf encounter procedureMichael R NILL [phone]-LjczzMiami Valley Hospital [facility] Surgery [place] Start: 09-29-2024 End: 36-86-7274apfhpkdndyAfdlxff R NILLFacility:[facility] InstituteueStart: 09-29-2024 End: 65-31-3070Ftdihnb encounter procedureMichael R NILL [phone]-YunggMiami Valley Hospital [facility] Surgery [place] Start: 37-50-6558firleddnqjAmqpqoc NILLFacility:[facility] Institutetart: 07-23-2024 End: 15-97-9267Rngmyl Yash Burr NP Work Phone: NOYC FB ORTHOPAEDICSStart: 07-23-2024 End: 81-77-0198Lmpjfq Yash Burr NP Work Phone: noms FB ORTHOPAEDICSStart: 07-23-2024 End: 71-36-0945Xuwkls outpatient visit 10 minutesSandra Burr NP Work Phone: noms FB ORTHOPAEDICSComment on above:Status post total knee replacement, left (Primary Dx); Chronic pain of left kneeStart: 07-23-2024 End: 84-29-4300orhmevqlanQBNYY T OLSENNot AvailableStart: 07-06-2024 End: 67-79-1697Rnjjjt flowsheetAlison L Leena PA Work Phone: NOMS TSR DERMStart: 07-06-2024 End: 57-84-3699Tyitzc flowsheetAlison L Leena PA Work Phone: NOAB TSR DERMStart: 07-06-2024 End: 42-44-0424Aioesw outpatient new 30 minutesAlison L Leena PA Work Phone: NOMS TSR DERMComment on above:Seborrheic keratosis (Primary Dx); Melanocytic nevus of trunkStart: 07-06-2024 End: 55-34-3260khunasbtrsELSSRS L LEENANot AvailableStart: 05-06-2024 End: 92-71-2083Axwrzz flowsheetGrant Lambert Burr DAIRY FEED SALES CONSULTANT Work Phone: NOMS FB ORTHOPAEDICSStart: 05-06-2024 End: 60-11-5974Cwwuna flowsheetGranlambert T Farrukh DAIRY FEED SALES CONSULTANT Work Phone: NOJE FB ORTHOPAEDICSStart: 05-06-2024 End: 27-20-0203Djzmps outpatient visit 10 minutesGrant Lambert Burr DAIRY FEED SALES CONSULTANT Work Phone: NOTS FB ORTHOPAEDICSComment on above:Status post total knee replacement, left; Primary osteoarthritis of left kneeStart: 05-06-2024 End: 33-39-2875xjfwrdbinmPQKWQ T OLSENNot AvailableStart: 02-05-2024 End: 47-34-2298ekzjbhhnwkDLZKY T OLSENNot AvailableStart: 01-24-2024 End: 89-70-7028epbvlpizyvFMAV J SPRIGGSNot AvailableStart: 01-22-2024 End: 48-36-0135pnedpoqzmoQVEB J SPRIGGSNot AvailableStart: 01-17-2024 End: 34-20-2451zwwcyuevadSFNO J SPRIGGSNot AvailableStart: 01-15-2024 End: 73-07-7529nzpkcromqnUJOT J SPRIGGSNot AvailableStart: 01-10-2024 End: 34-48-8731ryazjxhabpYILTVBHN WRIGHTNot AvailableStart: 01-08-2024 End: 85-46-0060avgodloxvgKIOC J SPRIGGSNot AvailableStart: 01-03-2024 End: 28-95-2468ntmxjboofqMELHSDHX WRIGHTNot AvailableStart: 01-01-2024 End: 68-02-0878vpbazbhsqbHHCS J SPRIGGSNot AvailableStart: 12-30-2023 End: 25-14-6735hwzagvbvcaDLBTSFGB WRIGHTNot AvailableStart: 12-27-2023 End: 05-25-0136yhhtromrpaAKPT J SPRIGGSNot AvailableStart: 12-26-2023 End: 76-81-2432lrysmazkotJZLFS T OLSENNot AvailableStart: 12-26-2023 End: 13-21-0002qwetruvuxiMZIAFBSK WRIGHTNot AvailableStart: 12-20-2023 End: 20-35-4318qkkvwmymyeQDRLFTAH WRIGHTNot AvailableStart: 12-18-2023 End: 29-34-3517cladxxoklfYPPY J SPRIGGSNot AvailableStart: 12-16-2023 End: 88-07-5563mtsacttbxsJAOI J SPRIGGSNot AvailableStart: 12-13-2023 End: 69-36-0440pwnlxsawicUQJV J SPRIGGSNot AvailableStart: 12-10-2023 End: 89-64-6957ucyvzuhmvrRWGV J SPRIGGSNot AvailableStart: 12-04-2023 End: 02-81-2595eproxlbiinKXJCU T OLSENNot AvailableStart: 11-27-2023 End: 86-37-1619toihctrwarDNFMK T OLSENNot AvailableStart: 11-22-2023 End: 28-02-9956exvvwwdxgrALKX D REYNOLDSCleveland [facility] HospitalStart: 11-19-2023 End: 71-32-7469xublioiperURHLQY C KAMALA [facility] HospitalStart: 11-19-2023 End: 72-05-0850Emxhfmssfd and management of inpatientGEORGE C KAMALA LORD [facility] HospitalStart: 11-11-2023 End: 75-53-9773ewmxqffvueTUAITUS J MEYERNot AvailableStart: 11-08-2023 End: 83-37-1576ytgqmehqvzXLRZBM C KAMALA [facility] HospitalStart: 28-53-0174Atpmzxbym for other preprocedural examinationGEORGE KAMALA LORD [facility] HospitalStart: 11-08-2023 End: 60-82-0331Afxouls encounter procedurePmh Pre-Admission Testing [address] [place] [address] - Pre AdmitComment on above: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 Juan Carlos Alas DO Work Phone: [facility] ORTHOPAEDICSComment on above:Primary osteoarthritis of left knee (Primary Dx); Chronic pain of left kneeStart: 53-52-6947usorhbmjkjZL CHARITY HOY .Facility: Start: 11-27-2022 End: 60-72-0372fjpehuzoxsWH CHARITY HOY .Facility:X0Zpcyc: 11-19-2022 End: 89-52-7308xojmpqkzunHL CHARITY HOY .Facility:R8Rqlkd: 11-16-2022 End: 91-68-8323qeevzuqtnyPR CHARITY HOY .Facility:I3Uvpth: 11-14-2022 End: 00-00-5863zhvzzmgvqdJE CHARITY HOY .Facility:V7Asqmk: 09-11-2022 End: 82-62-7776eezezzxdamYZ CHARITY HOY .Facility:G9Mnuwh: 09-20-2020 End: 14-85-1873Eyfjmpweho and management of inpatientWilson Memorial Hospitaltart: 09-20-2020 End: 37-27-7152Xxuvxargjs and management of inpatientKareem Diaz Work Phone: [facility] Med SurgComment on above:Acute postoperative pain (Primary Dx); Localized osteoarthritis of right kneeStart: 09-14-2020 End: 76-76-6092Khztjeo encounter procedureSelect [facility] [place] Start: 09-14-2020 End: 83-19-5955Qxgklrppbs hospital visit by Cesar Ennis Screening ScheduleSTAGi Covfito ScreeningComment on above:Preop testing (Primary Dx)Start: 09-01-2020 End: 16-17-9176Icllrop encounter procedureSelect [facility] [place] Start: 09-01-2020 End: 46-27-2006Yjhncdsmrs hospital visit by Brandon Diggs 2ST[facility] PRE-ADMIT TESTINGStart: 05-13-2017 End: 85-87-3009NmjwordzrcWSXNOVN PHYSICIANFacility:[facility] Procedures DateProcedureProcedure DetailPerforming ClinicianStart: 34-63-5052Ofkvloktgh examination knee 1/2 viewsSandra Burr DAIRY FEED SALES CONSULTANT Work Phone: Start: 66-01-5300Anrzcftkyj examination knee 1/2 views Sandra Burr DAIRY FEED SALES CONSULTANT Work Phone: Start: 01-63-9391Frvdbidr screenPmh 1Start: 10-23-2023 Radiologic examination knee 1/2 viewsJrCarolyn Alas DO Work Phone: Start: 75-03-0657STM screeningDR CHARITY YIN .Comment on above:Performed By: #### VITJN, PSASC ####[facility] Rxrwalxfhb[address] [place], [place]Dr. Yolandaradha ChangStart: 71-58-8724Oncqx metabolic panel calcium totalMalissa D Delgrosso Work Phone: Start: 61-82-5362Ufnug count complete auto&auto difrntl wbcMalissa D Delgrosso Work Phone: Start: 09-20-2020 End: 48-79-7822Wbcheu kne condyle&platu medial&lat compartmentsJason W Diaz Work Phone: Start: 13-48-1970ZPBPS-19Luis E Dennis Work Phone: Start: 44-09-4462Wpmxh count complete auto&auto difrntl wbcDOUGLAS HOYStart: 08-19-4783UBL AND CREATININEDOUGLAS HOYStart: 26-14-0272Tsltinwyugp panelDOUGLAS HOYStart: 83-37-8653XOUH AND SCREENDOUGLAS HOYStart: 03-46-3207Vbfhj s aureus methicillin resist amp probe tqDOUGLAS HOY Start: 54-14-0978Ppr routine ecg w/least 12 lds w/i&rDOUGLAS HOYStart: 69-91-0589UAN REPORTDOUGLAS HOYStart: 69-26-3276Ztzsaecl screenSta 2Start: 61-99-0024Jacjz of urea nitrogen quantitativeHermela Tezera Work Phone: Start: 03-83-6758Hkmnv count complete auto&auto difrntl wbcJeff Montilla Work Phone: Start: 42-65-8400Kpkqm typing serologic aboJeff Montilla Work Phone: Start: 90-62-9706Fmmjvfzgubp panelJeff Montilla Work Phone: Start: 62-69-1795Rufpm s aureus methicillin resist amp probe tqJason W Diaz Work Phone: Start: 23-04-3746Wol routine ecg w/least 12 lds trcg only w/o i&rHermela Eladia Work Phone: Start: 59-85-0588KBQ REPORTHpf ScanningStart: 30-68-4719Dyhoiqf of coronary artery bypass graftingHistory of coronary artery bypass surgeryJr. Stepanic DO Work Phone: Cardiac catheterizationMichael NILL Cervical laminectomyMichael NILL Coronary artery bypass 2 coronary venous graftsMichael NILL Decompression of bilateral median nervesMichael NILL Excision of cystMichael NILL Open reduction of fracture with internal fixation Amadeo SWAIN Repair of joint of left kneeMichael NILL Repair of joint of right kneeMichael NILL Repair of musculotendinous cuff of shoulderMichael NILL Skin graft material (substance)Amadeo SWAIN Plan of Treatment DateCare ActivityDetailAuthorStart: 20-85-9451YVjU,Tdap and Td Vaccines (2 - Td or Tdap)DTaP,Tdap and Td Vaccines (2 - Td or Tdap)[place] SystemStart: 77-37-3501TTxA/Tdap/Td vaccine (2 - Td)DTaP/Tdap/Td vaccine (2 - Td)[facility]: 10-18-2025 End: 35-76-3010Spviopm encounter rkiepxckp01/02/2026 8:00 AM EST Office Visit [facility] [address] [place] [phone] Sandra Burr, DAIRY FEED SALES CONSULTANT [address] [place], [place] [phone] [facility]OPAEDICSStart: 07-12-2025 End: 58-84-4433Xsnxzxr encounter rsxbbrins17/27/2025 9:00 AM EDT Office Visit [facility] [address] [place] [address] Wilian Stern, PA [address] [place] [address] [facility] DERMStart: 11-11-2024 End: 08-38-5569Pvryhff encounter njijsibkb13/26/2025 9:30 AM EST Office Visit [facility] [address] [place] [address] Sandra Burr, DAIRY FEED SALES CONSULTANT [address] [place], [place] [address] [facility]THOPAEDICSStart: 86-43-6889Gbhvh BMI ScreeningAdult BMI Screening [place] SystemStart: 41-21-2981Ajwlpdh ScreeningTobacco Screening [place] SystemStart: 10-22-2024 End: 77-20-4465Pnmeppu encounter urocufetj21/06/2025 2:45 PM EST Office Visit [facility] [address] [place] [address] Sandra Burr, DAIRY FEED SALES CONSULTANT [address] [place] [address] ArrivedNOMS FB ORTHOPAEDICSComment on above:ArrivedStart: 07-23-2024 End: 67-98-3153Eljolog encounter twoyqqtgi01/07/2024 11:15 AM EST Office Visit [facility] [address] [facility] [address] Sandra Burr, DAIRY FEED SALES CONSULTANT [address] [place] [address] ArrivedNOMS FB ORTHOPAEDICSComment on above:ArrivedStart: 07-06-2024 End: 08-30-3925Pthocat encounter suuobdzhn62/21/2024 10:10 AM EDT Office Visit [facility] [address] [place] [address] Wilian Stern, [place] [address] [place] [address] ArrivedNOMS TSR DERMComment on above:ArrivedStart: 06-26-2024 End: 16-70-3427Yojvsic encounter gpzorppit54/11/2024 10:50 AM EDT Office Visit [facility] [address] [place] [phone] Wilian Stern PA [address] [facility] [address] [place] [address] [facility] DERMStart: 82-17-2805Snqfafaci vaccinationInfluenza Vaccine (#1)[facility] HealthcareStart: 05-06-2024 End: 23-61-8600Cvpuain encounter /21/2024 9:30 AM EDT Office Visit [facility] [address] [facility] [place] [address] Sandra Burr, DAIRY FEED SALES CONSULTANT [address] [place] [address] Status post total knee replacement, left; Primary osteoarthritis of left kneeNOMS FB ORTHOPAEDICSComment on above:Status post total knee replacement, left; Primary osteoarthritis of left kneeStart: 11-19-2023 End: 97-08-9359Stertxtyh to same day surgery lmaejc6911/19/2023 11:00 AM EST - 11/19/2023 2:00 PM EST Surgery [facility] - Surgery [address] [place] [address] Juan Carlos Alas Jr., DO [address] [facility] [address] [place] [address] REPLACEMENT TOTAL JOINT KNEE [75091 (CPT )][facility] CenterComment on above:REPLACEMENT TOTAL JOINT KNEE [58784 (CPT )]Start: 11-19-2023 End: 37-61-6685Xorbpjnspm ohmafeqcyrlu19/05/2024 11:00 AM EST Anesthesia Event [facility] Surgery [address] [facility] [place] [address] Chon Wilkinson, DO [address] [facility] [place] [address] [facility] Start: 11-19-2023 End: 74-32-2501Opidal kne condyle&platu medial&lat compartmentsREPLACEMENT TOTAL JOINT KNEE left knee degenerative joint disease, right knee adhesive capsulitis 11/19/2023 11:00 AM ESTFREMST. LOUIS VA [facility] SURGERYStart: 11-19-2023 End: 81-66-9723Dmjbarljmwxn knee joint under general anesthesiaMANIPULATION KNEE left knee degenerative joint disease, right knee adhesive capsulitis 11/19/2023 11:00 AM ESTFREMST. LOUIS VA MEDICAL CENTER SURGERYStart: 38-04-4255Mckedsueip hospital visit by etpjinccr97/05/2024 11:00 AM EST Hospital Encounter [facility] Surgery [address] [place] [address] Juan Carlos Alas Jr., DO [address] [facility] [address] [place] [address] [facility] - SurgeryStart: 11-08-2023 End: 66-68-3179LC Femur and Tibia Views for leg lengthProMedica Work Phone: Comment on above:Expected: 11/08/2023, Expires: 11/05/2024Start: 11-06-2023 End: 08-31-4442Vhvxyac encounter ofjylkdhy91/21/2024 8:00 AM EST Office Visit [facility] [address] [place] [address] Jr. Juan Carlos Alas C, DO [address] [facility] [address] [place] [address] [facility]THOPAEDICSStart: 54-74-1981GQHFH- 19 Vaccine ( season)COVID-19 Vaccine ( season)[place] SystemStart: 47-13-3335Xyggumhli vaccinationNOWY HealthcareStart: 09-20-2020 End: 85-47-2671Iteajnzb EncounterSTAZ ORComment on above:RIGHT KNEE TOTAL ARTHROPLASTY- BIOMETStart: 09-14-2020 End: 18-97-2673Eqxufjpcvcw61/30/2020 Appointment LabSTAZ Covid ScreeningStart: 09-10-2020 End: 12-74-9057TFHPZ-19COVID-19 Lab Routine Preop testing Expected: 09/10/2020, Expires: 09/10/2021[facility], KYComment on above:Expected: 09/10/2020, Expires: 09/10/2021tart: 73-00-1404Pselewseurhf Vaccine: 65+ Years (2 - PCV) Pneumococcal Vaccine: 65+ Years (2 - PCV)[facility] HealthcareStart: 05-20-2018 Pneumococcal Vaccine: 65+ Years (2 of 2 - PCV)Pneumococcal Vaccine: 65+ Years (2 of 2 - PCV)[facility] HealthcareStart: 64-95-7257Oqra Risk ScreeningFall Risk ScreeningProEast [place] Regional Hospitaltart: 03-50-1522Gujmkmcaityred of varicella zoster vaccineZoster (Shingles) Vaccine (1 of 2)[facility] Providencetart: 74-34-6016Qzwefgwom for malignant neoplasm of colonColon cancer screen colonoscopyMarymount Hospital, [facility]: 15-15-1958Xzzzfudu Vaccine (1 of 2) Shingles Vaccine (1 of 2)[facility]: 35-64-3155Afzpdqbzng ScreeningDepression ScreeningAtrium Health Providencetart: 31-21-7531Byoso panel Lipid screenPremier Health [facility]: 66-01-1075Divkzjjlv aortic aneurysm screeningAAA screenPremier Health Miami [facility]: 87-79-6749Lnwdptmcv C screening Hepatitis C screenPremier Health [facility]: 97-66-7906Gkugthgqa for malignant neoplasm of colonNOMS HealthcareBasic metabolic 2000 panelBasic Metabolic Panel Lab STAT Tomorrow AM until discontinued starting 09/22/2020, 1 [facility], MAISHAComment on above:Tomorrow AM until discontinued starting 09/22/2020, 1 completedCBC Auto DifferentialCBC Auto Differential Lab STAT Tomorrow AM until discontinued starting 09/22/2020, 1 [facility] MAComment on above:Tomorrow AM until discontinued starting 09/22/2020, 1 completed End: 69-43-6309Phqxjqarlo RBCCrossmatch RBC Blood Bank Routine Coronary artery disease involving naknek coronary artery of naknek heart without angina pectoris Preop examination Urinary frequency Hypertension, unspecified type 1Occurrences starting 11/05/2023 until 11/05/2024UK HealthcareComment on above:1 Occurrences starting 11/05/2023 until 11/05/2024Oxygen therapy [Minimum Data Set]Initiate Oxygen Therapy Protocol Respiratory Care Routine Daily until discontinued starting 09/20/2020[facility] HospitalMAISHAComment on above:Daily until discontinued starting 09/20/2020pirometry panelIncentive spirometry Respiratory Care Routine Every 2hr while awake until discontinued starting 09/20/2020[facility] HospitalMAISHAComment on above:Every 2hr while awake until discontinued starting 09/20/2020 Immunizations Immunization DateImmunizationNotesCare YcebhoflKmnyewcp93-96-4130DOMD-YcJ-7 (COVID-19) mRNAMUL.ORD!p35821Zuiyuzj NILL [phone]-XormyCleveland Clinic Foundation Comment on above:Result Comment: 2024-09-07: DWI0472-75-5522Jwjflcjih, Seasonal, Quadrivalent, AdjuvantedGrant Burr DAIRY FEED SALES CONSULTANT Work Phone: noBothwell Regional Health CenterWrznazwssg09-64-4948prjpinlba virus vaccine, unspecified formulationJr. Stepanic DO Work Phone: NOBothwell Regional Health CenterYofbpsbamd44-42-6393DDRB-SlV-7 (COVID-19) mRNA- 1273 vaccineMichael NILL [phone]-SufhbCleveland Clinic Foundation 15-84-7099LLFF-CoV-2 (COVID-19) mRNA-1273 vaccineMichael NILL [phone]-TfhrvCleveland Clinic Foundation Comment on above:Result Comment: 2024-09-07: EAV2996-17-2537Hqjuuyky trivalent influenza vaccine, adjuvanted, preservative freeGrant Burr DAIRY FEED SALES CONSULTANT Work Phone: noBothwell Regional Health CenterQdvqgmplxc64-10-4940IWLQ-CuB-9 (COVID-19) mRNA- 1273 vaccineMichael NILL [phone]-PzoadCleveland Clinic Foundation Comment on above:Result Comment: 2024-09-07: RIJ0932-39-6899JRWS-HyC-7 (COVID- 19) mRNA-1273 vaccineMichael NILL [phone]-JtlvvCleveland Clinic Foundation Comment on above:Result Comment: 2024-09-07: HHJ7151-23-0332Moipznah trivalent influenza vaccine, adjuvanted, preservative freeGrant Burr DAIRY FEED SALES CONSULTANT Work Phone: noBothwell Regional Health CenterRaohwxatim02-40-5810idoafgb toxoid, reduced diphtheria toxoid, and acellular pertussis vaccine, [address]10-25-2017influenza virus vaccine, unspecified formulationSandra Burr DAIRY FEED SALES CONSULTANT Work Phone: [facility] Cancer CenterFpkwbazihe52-88-4526ddtbzvmjl, injectable, quadrivalent, preservative freeSandra Burr DAIRY FEED SALES CONSULTANT Work Phone: [phone] [place], [place] [address]Jiyucvyuws07-41-0939ybrqfbxuzyzx polysaccharide vaccine, 23 valentGrant Burr DAIRY FEED SALES CONSULTANT Work Phone: [facility] Cancer CenterNtuxuofkwc37-77-8382xbjkiwxznxre polysaccharide vaccine, 23 valentGrant Burr DAIRY FEED SALES CONSULTANT Work Phone: [facility] Payers DatePayer CategoryPayerPolicy [id number] Health InsuranceMEDICAL MUTUAL [id number] [id number] [id number] 1.2.840.766408.1.13.239.2.7.3.547[id number] 1.2.840.392943.1.13.239.2.7.3.892[id number] 2.0.1.979090.3.57[id number] 2.16.840.1.289619.3.579.2.57517-73-6986Gvtleox33774011 2.16.840.1.008466.3.579.2.01904-98-0549Wvchxbc0728125 2.16.840.1.325395.3.579.2.54775-48-2585Jpbkjdw8420672 2.16.840.1.063968.3.579.2.69806-62-9097Phfzjpy4056710 2.16.840.1.461410.3.579.2.86680-06-6597Hkipzqu3011447 2.16.840.1.130738.3.579.2.53342-22-3664Jhdrgwr1929873 2.16.840.1.233912.3.579.2.43514-86-1997Hbvalie5174406 2.16.840.1.103389.3.579.2.24636-16-0710Kzcuhiw65111769 2.16.840.1.397498.3.579.2.563188-65-0138Ixrtyhn91235586 2.16.840.1.321534.3.579.2.193170-88-0945Jptfobi42387861 2.16.840.1.688376.3.579.2.947292-06-7528Vvewljt46440679 2.16.840.1.941183.3.579.2.949863-40-7238Cdmvetj62347696 2.16.840.1.558200.3.579.2.930239-79-6235Lsrxtwg40822379 2.16.840.1.427881.3.579.2.213335-88-6819Zrdxsii98629699 2.16.840.1.205578.3.579.2.835260-06-5722Beihuwx32328335 2.16.840.1.870619.3.579.2.937494-83-4224Uffkrvl51854561 2.16.840.1.876027.3.579.2.035018-68-4456Fuoocok0210681 2.16.840.1.409704.3.579.2.979526-42-1112Eikjtcy1819351 2.16.840.1.082205.3.579.2.635634-40-9331Elzvxjg3435326 2.16.840.1.167535.3.579.2.188234-70-7564Gufggru5071264 2.16.840.1.374170.3.579.2.747372-12-5303Onfogdx5085034 2.16.840.1.603228.3.579.2.518420-05-2932Nbzxwfo9803358 2.16.840.1.564339.3.579.2.697445-76-1251Uazzhrs2103581 2.16.840.1.754388.3.579.2.045298-07-3898Zqykeax5587501 2.16.840.1.750197.3.579.2.018810-07-1035Ghhuchp7817095 2.16.840.1.274597.3.579.2.430187-71-1711Ozzwpim2977695 2.16.840.1.414728.3.579.2.575684-12-1220Hwtrakb4943300 2.16.840.1.850029.3.579.2.632746-94-7197Unnwunr4308951 2.16.840.1.494167.3.579.2.654252-47-0017Sqmmtqf8214334 2.16.840.1.703522.3.579.2.647956-00-4592Ubmfdmd4301858 2.16.840.1.835904.3.579.2.349539-10-0878Ibjncsd8919728 2.16.840.1.876792.3.579.2.231712-79-7384Dmokexm5049807 2.16.840.1.792849.3.579.2.663688-96-4066Wxlcdsh2120181 2.16.840.1.131965.3.579.2.858847-35-1396Zfrzbdu7281426 2.16.840.1.413136.3.579.2.358318-43-5703Onceuqd4065927 2.16.840.1.802069.3.579.2.648964-18-5651Asszyxq5900773 2.16.840.1.455308.3.579.2.002040-93-0621Htwybil8094931 2.16.840.1.262066.3.579.2.942196-82-6999Moabzfk5728937 2.16.840.1.962576.3.579.2.493618-44-3842Uysifmp1476455 2.16.840.1.038819.3.579.2.545383-02-9330Hijnpkt7257046 2.16.840.1.116621.3.579.2.492237-43-9820Cbgwjup5774533 2.16.840.1.116469.3.579.2.625128-19-6950Nculpaz2665350 2.16.840.1.712273.3.579.2.770600-17-4701Jzfwkfa1272904 2.16.840.1.220447.3.579.2.905409-77-4360Dmonnkt4956492 2.16.840.1.858775.3.579.2.062263-00-8187Wcgmbft6867322 2.16.840.1.530455.3.579.2.018189-26-7727Ztpchig47566926 2.16.840.1.612411.3.579.2.70544-68-7108Wmnhpto50951816 2.16.840.1.302875.3.579.2.09415-67-1327Rqfyiik00345946 2.16.840.1.227222.3.579.2.81132-74-4614Csmnfzi94515859 2.16.840.1.829039.3.579.2.65365-06-0186Vwhvtay14442870 2.16.840.1.067739.3.579.2.727 Social History DateTypeDetailFacilityStart: 09-01-2020 End: 48-95-8204Httpgvp smoking status NHISFormer [place]Sh[place] End: 67-61-2817Hbumjfv of tobacco useCurrent smokerShade, [place]Start: 09-01-2020 End: 93-70-1545Tqgrgzb use and exposureFormer userShade, [place]Start: 09-01-2020 End: 61-02-0040Jifisnf intakeCurrent non-drinker of alcohol (finding)[place], [place]Start: 59-22-3437Vkj Assigned At BirthNot on [place], [place]Exposure to SARS-CoV-2 (event)Not [place], [place]History of tobacco useCigarette SmokerNOMS HealthcareStart: 03-22-2023 End: 31-70-4051Imhmdzj use and exposureSmokeless tobacco non-userNOMS Healthcare Start: 10-23-2023 End: 03-33-6159Dtixdeh intakeEx-drinker (finding)[facility] HealthcareStart: 10-03-2020 End: 23-98-5361Ozdifvw of Social functionNOMS HealthcareStart: 10-03-2020 End: 08-20-5742Qkxyaud use panelLouis Stokes Cleveland Va Medical CenterTobacco smoking statusFormer smokeless tobacco user, quit more than 30 days ago[facility], Avontart: 81-60-7024Vfg Assigned At MaleCenterville SystemStart: 28-22-8079Ectvof identityIdentifies as male gender (finding)[place] SystemStart: 67-38-9349Hlntpz orientation Heterosexual (finding)[facility] Medical Equipment Procedure CodeEquipment CodeEquipment Original TextEquipment IdentifierDates Putnam Sut Healicoil W/3 Ultrabraid [id number]_impStart: 43-33-5513Dhyfuv Sut Healicoil W/3 Ultrabraid [id number]_impStart: 23-22-6864Nagpaf Sut Healicoil W/3 Ultrabraid 5.5mm246003_impStart: 75-55-0069Xsq Use 853551 Impl Knee Psn All Poly Pat Ply [id number]_impStart: 84-45-8344Byp Tib Stm 5 Deg Sz F [id number] Start: 92-15-3288Ggh Mc Ve Asf R 10mm 8-11 [id number]_wbiGyxjh: 01-42-6417Cxtt Psn Fem Cp Cmt Ccr Std [id number]_impStart: 91-80-3597Gtaizf Bne 40gm Hi Visc Radpq For Rev [id number]_ckaGwqxh: 33-92-5920Deyeddz on above:Description: LOT # SAME Screw Bne L25mm Dia2.5mm Knee Full Thrd Hex Fem [id number]_wbnWensz: 09-20-2020 Functional Status LbuoYuczfqucvhDuijjaZtivpobh12-43-7533Zwwcnljhhc StatusN/AFisherMemorial Health [facility] [id number] StatusN/LylaMemorial Health System [facility] Surgery [place] Clinical Notes 11-19-2022 to 04-26-2025 Note Date & [id number] NoteUT Cardiology - [facility] Subjective Levon Bond is [...] establish care. He used to follow with [facility] cardiology, last Cardiology visit available according [...] WITH SUPPER (Patient takin (more content not included)...[facility]02-[facility] History of Present illness Narrative* Sandra Burr NP - 10/22/2024 2:45 PM EST Images from the original note were not [...] DAYS cetirizine (ZYRTEC) 10 mg, Daily HYDROcodone-acetaminophen ([place]) 5-325 MG tablet 1-2 tablets Orally every [...] Use: Not At Risk (07/10/2018) Received from [facility], [facility] Frequency of Alcohol Consumption: Never Average [...] Stable LT total knee replacement. Sandra Burr APRN-MOLDING FITTER Procedures Orders Placed This Encounter Procedures XR [...] that the guidelines and recommendations may change onthis in the future. He will follow up in 1 year for RCK and xray. Questions answered in laymen terms at the bedside. The diagnosis, home exercise plan and any ongoing restrictions/ recommendations reviewed. If unable to be reached in office, I recommend evaluation at nearest Emergency Room if any symptoms worsened or new symptoms develop for requiring urgent evaluation. Sandra Burr APRN-MOLDING FITTER documented in this encounterAlvin J. Siteman Cancer [id number] NoteGeneral Surgery Office/Clinic Note Chief Complaint consultation for cyst HPI Staff 74 year old male presents on consultation from Dr. Yin for right wrist cyst. Reports noting nodule approximately 6 weeks ago. Denies change in size since first noted. Denies soreness or tenderness. History of Present Illness 74 yo male with h/o CAD, [place], htn, hyperlipidemia, Rheumatoid arthritis, fibromyalgia, referred for [...] swallowing difficulties, no hearing loss, no ear infection(s),no nose bleeds. Cardiovascular: normal blood pressure, no [...] Immunizations Vaccine Date Status Comments SARS-CoV-2 (COVID-19) mRNAMUL.ORD![id number] 09/20/2022 Recorded 2024-09-07: TPV70 SARS-CoV-2 (COVID-19) mRNA (more content not included)...[facility] HospitalComment on above:Result Comment: Electronically Signed By: WILIAM CADET, Amadeo Artis\Date and Time Signed: 09/29/24 15:04 [id number] History of Present illness Narrative* Sandra Lambert Farrukh, OLIVIER - 07/23/2024 11:15 AM EST Images from the original note were not [...] HAVE PAIN. PAIN WILL BE ANTERIOR. HAS TOTAKE VICODIN. UNABLE TO GET UP FROM THE [...] DAYS cetirizine (ZYRTEC) 10 mg, Daily HYDROcodone-acetaminophen ([place]) 5-325 MG tablet 1-2 tablets Orally every [...] of prophylactic antibiotics for dental work is acontroversial topic. I currently have recommended that prophylactic [...] develop for requiring urgent evaluation. Sandra Burr SEISMOGRAPH CHIEF-MOLDING FITTER documented in this encounterAlvin J. Siteman Cancer [id number] History of Present illness Narrative* WILIAN Chahal - 07/06/2024 10:10 AM EDT Skin Check Location: Patient requests a full body skin examination Dermatologic history: no history of skin cancer, no history of atypical moles, no family history ofmelanoma Last visit: First skin exam New patient [...] Next Visit: 1 year documented in this encounterAlvin J. Siteman Cancer [id number] History of Present illness Narrative* Sandra Burr NP - 05/06/2024 9:30 AM EDT Images from the original note were not included. Chief Complaint Patient presents with Left Knee - Follow-up HISTORY OF PRESENT ILLNESS: Levon Bond is an 73 y.o. @ male. (EST PT) PO LT TKA W/RT KNEE ЕКАТЕРИНА 11/19/23 (5 MTHS 2 WKS). XRAY TODAY CHANGE 05/06/24 XRAY CHANGE 12/26/23 XRAY CHANGE 11/27/23 PHYSICAL THERAPY @ [facility] FINISHED PT. STATES HIS BALANCE HAS BEEN [...] cetirizine (ZYRTEC) 10 mg, Oral, Daily HYDROcodone-acetaminophen ([place]) 5-325 MG tablet 1-2 tablets Orally every [...] surgical position and alignment of prosthetic components withoutevidence of loosening or wear to the femoral, [...] advise the patient that the guidelines and recommendationsmay change on this in the future. Questions answered in laymen terms at the bedside. The diagnosis, home exercise plan and any ongoing restrictions/ recommendations reviewed. If unable to be reached in office, I recommend evaluation at nearest Emergency Room if any symptoms worsened or new symptoms develop for requiring urgent evaluation. Sandra Burr SEISMOGRAPH CHIEF-MOLDING FITTER documented in this encounterAlvin J. Siteman Cancer [id number] Instructions* Patient Instructions* Nori Gilman RN - 11/08/2023 9:00 AM EST Preoperative Education Checklist- General Surgery date: 11/19/23 Surgery time: 11a Arrival time: 9a 1. Bring a photo ID and your insurance card with you the day of surgery. You will check in at the main lobby of the [facility]- registration desk is straight ahead as soon as you walk in. Tell them you are here for surgery. 2. If you have a Living Will/Durable Power of Wardrobe Assistant for Health Care that is not on [...] after you have bathed. 5. NO nail togolese/acrylic on at least one finger. If you are having a hand, wrist or foot surgery then all nail togolese and artificial/acrylic nails must be removed from [...] least 8 hours and marijuana for 24 hoursprior to arrival for your surgery. 16. If [...] please call the Preadmission Testing office at [phone], Mon.-Fri. 7 a.m.-3 p.m. Leave a voicemail [...] after surgery- do not stop unless directed leo your physician. You may also be given [...] is normal. Call your doctor if you noticeany of the following: -Increased redness or hardening [...] water and pat the area dry with aclean towel. -No re-using wash cloths or towels; [...] appointment with your doctor. documented in this encounterUK Healthcare02-07-2024 History of Present illness Narrative* Jr. Juan Carlos Alas, DO - 10/23/2023 8:00 AM EST Images from the original note were not included. HISTORY OF PRESENT ILLNESS: EST PT Levno Bond is an 73 y.o. @ male. (EST PT; MOST RECENT VISIT WITH SANDRA) RECHECK LT KNEE PAIN- S/P CORTISONE INJ 09/02/23; SOME RELIEF - HERE TO DISCUSS POSSIBLE SURGERY IN DECEMBER - REPEAT XRAY TODAY PT C/O MULTIPLE JOINT PAIN-PT IS CURRENTLY TAKING DEER ANTCHRIS CARMONA PT WAS SCHEDULED FOR LT TKA AND RT KNEE ЕКАТЕРИНА IN THE PAST-CX DUE TO CHEST PAIN WHILE IN [place] AND SINUS INFECTION PT SAW DR APPIAH 03/2023 ([facility] ); CLEARANCE UNDER MEDIA XRAY LT KNEE TODAY CHANGE 10/23/23 XRAY LT KNEE EXA 12/12/22 XRAY LT KNEE [facility] 11/19/22 MRI LT KNEE [facility] 11/27/22 NO PAIN MANAGEMENT DEPO INJECTION 06/05/23, 09/02/[address] YIN ~12/2022 NO MDP/PREDNISONE PT C/O INSTABILITY WITH THE LT KNEE- PAIN IS CONSTANT- PAIN POSTERIOR KNEE- +SWELLING- +VICODIN ZAK VÁZQUEZY- +STIFFNESS WITH PROLONG SITTING HX RT TKA [...] cetirizine (ZYRTEC) 10 mg, Oral, Daily HYDROcodone-acetaminophen ([place]) 5-325 MG tablet 1-2 tablets Orally every [...] discussed options of surgical and non surgical treatment.Risks/benefits of each and chances for success/ failure. Discussion included but was not limited tothe risk of infection, blood clot, failure to [...] for requiring urgent evaluation. documented in this encounterAlvin J. Siteman Cancer [id number] NotePROCEDURE: XR ELBOW RT MIN 3 VIEWS DATE: [...] Electronically authenticated by: GENNY DAVIS Date: 2023-02-13 14:02[facility]03-06-2023 NotePROCEDURE: XR KNEE LT 4V or > COMPARISON: None. HISTORY: Arthritis of left knee FINDINGS: BONES:No acute fracture or dislocation. Moderate tricompartmental osteoarthropathy with marginal osteophyte formation. Narrowing of the medial joint space. SOFT TISSUES:Negative. No visible soft tissue swelling. EFFUSION:Moderate suprapatellar joint effusion OTHER: Negative. IMPRESSION: Moderate osteoarthritis with joint effusion Electronically authenticated by: ANI HARDING Date: 2022-11-19 15:22[facility] Future Appointments Appointment Date:10/13/2024 02:00:00 PM Scheduled Provider:Amadeo SWAIN MD Location:[facility] Appointment Type: Procedure 30 [facility] [place] Evaluation + Plan note Future Appointments Appointment Date:10/27/2024 02:00:00 PM Scheduled Provider:Amadeo SWAIN MD Location:[facility] Appointment Type:GS Established 15 [facility] [place] Evaluation note* Diagnosis Primary osteoarthritis of left knee- Primary [...] of left knee documented in this encounter [facility]* Diagnosis Status post total knee replacement, left- Primary Chronic pain of left knee documented in this encounter [facility] HealthcareEvaluation [facility]* Diagnosis Coronary artery disease involving naknek coronary artery of naknek heart without angina pectoris- Primary Preop examination Unspecified pre-operative examination Urinary frequency Hypertension, unspecified type Coronary artery disease involving naknek coronary artery of naknek heart without angina pectoris Preop examination Unspecified pre-operative examination Urinary frequency Hypertension, unspecified type documented in this encounter [facility] Narrative No data available for this section [facility] Discharge instructions No data available for this section [facility] [place] Progress note No data available for this section [facility] [place] Summary Purpose Family History No Family History [...] No Advanced Directives Records FoundDocuments on File TypeDate RecordedPatient RepresentativeExplanationACP-Advance DirectiveACP-Power of AttorneyTypeDate RecordedPatient RepresentativeExplanationACP-Advance DirectiveACP-Power of AttorneyCode StatusDate ActivatedDate InactivatedComments Full Code09/20/2020 11:51 AM History of Present Illness * [...] SNF and will dishcharge to home with [facility]. , Hai. Notified. * Carolina Ervin PT - 09/22/2020 9:48 AM EST Physical Therapy Facility/Department: [facility] Daily Treatment Note NAME: Levon Bond : 1950 Date of Service: 09/22/2020 Discharge Recommendations: Subacute/Detention Facility(if declining, recommend PT) RN reports patient [...] of Anginal pain (HCC), Arthritis, Fibromyalgia, Hyperlipidemia, [place] (myocardial infarction) (HCC), Mood swings, Prolonged emergence [...] to only perform slight LAQ. OutComes Score -[facility] Score -[facility] Inpatient Mobility Raw Score : 17 (09/22/20946) -[facility] Inpatient T-Scale Score : 42.13 (09/22/20946) Mobility Inpatient CMS 0-100% Score: 50.57 (09/22/20) Mobility Inpatient [facility] G-Code Modifier : CK (09/22/20946) Goals Short term goals Time Frame for Short term goals: 5 visits: Short term goal 1: Pt. to be indep with bed mob. 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 Short [...] that discharge plan is Home. Agency/Facility chosen: [facility] Awaiting pre-certification no Anticipated discharge date: [...] Warner MD - 09/22/2020 8:09 AM EST [facility] Office: [phone] Dwayne Orourke DO, Sabino Archibald DO, Lam [...] MD Juan, Donya Monsalve CNP, Adali Cameron MOLDING FITTER, Bambi Muhammad MOLDING FITTER, Jennifer Keller, CUSTOMS INVESTIGATOR,Devyn Trejo, MOLDING FITTER, Ladi Pedersen, MOLDING FITTER, Deyanira Leo, MOLDING FITTER, Mary Jane Bauman, MOLDING FITTER, Kuldip Knight, MOLDING FITTER, Charli Cueva PA-C, Heidi Foote DNP, Charline Swanson, SAADIA, Adelina Adamson, SAADIA, Madison Maya, SAADIA, Gemma Lopez CNP, Lory Schrader, SAADIA [facility] IN-PATIENT SERVICE [facility] Progress Note 09/22/2020 8:09 AM Name: Levon Bond Acct: [id number] Room: IP Day: 2 Admit Date: 09/20/2020 [...] of Anginal pain (HCC), Arthritis, Fibromyalgia, Hyperlipidemia, NJ (myocardial infarction) (HCC), Mood swings, Prolonged emergence [...] No results for input(s): PROT, LABALBU, LABA1C, E3LOCOZ, C6PFTNQ, FT4, TSH, AST, ALT, LDH, GGT, ALKPHOS, LABGGT, BILITOT, BILIDIR, AMMONIA, AMYLASE, LIPASE, LACTATE, CHOL, HDL, LDLCHOLESTEROL, CHOLHDLRATIO, TRIG, VLDL, XNY96RC, PHENYTOIN, PHENYF, URICACID, POCGLU in the last 72 hours. ABG:No results found for: POCPH, PHART, PH, POCPCO2, UYO1YSD, PCO2, POCPO2, PO2ART, PO2, POCHCO3, INL9HEW, HCO3, NBEA, PBEA, BEART, BE, THGBART, THB, KIQ6NYJ, PHHO0ZZE, W2BJIGLV, O2SAT, FIO2 No results found for: SPECIAL [...] Hardin RN - 09/22/2020 3:51 AM EST Rn Family noticed more redness on the outer part [...] Discharge Recommendations: Home with Home health PT, Subacute/Detention Facility, Continue to assess pending progress PT [...] of Anginal pain (HCC), Arthritis, Fibromyalgia, Hyperlipidemia, NJ (myocardial infarction) (HCC), Mood swings, Prolonged emergence [...] out of bed. OutComes Score AM-PAC Score AM-[facility] Inpatient Mobility Raw Score : 17 (09/21/201510) AM-PAC Inpatient T-Scale Score : 42.13 (09/21/201510) Mobility Inpatient CMS 0-100% Score: 50.57 (09/21/201510) Mobility Inpatient CMS G-Code Modifier : CK (09/21/201510) Goals Short term goals Time Frame for Short term goals: 5 visits: Short term goal 1: Pt. to be indep with bed mob. 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 Short [...] CLINICAL PHARMACY NOTE: MEDS TO [facility] Patient?: No Total # of Prescriptions [...] 09/21/2020 10:34 AM EST Physical Therapy Facility/Department: [facility] [...] of Anginal pain (HCC), Arthritis, Fibromyalgia, Hyperlipidemia, NJ (myocardial infarction) (HCC), Mood swings, Prolonged emergence [...] putting weight through RLE. Gait Deviations: Slow Ojdy;Increased ANA;Decreased step length;Decreased step height Distance: 20ft [...] out of bed. OutComes Score AM-PAC Score [facility] Inpatient Mobility Raw Score : 17 (09/21/201033) [facility] Inpatient T-Scale Score : 42.13 (09/21/201033) Mobility Inpatient CMS 0-100% Score: 50.57 (09/21/201033) Mobility Inpatient CMS G-Code Modifier : CK (09/21/201033) Goals Short term goals Time Frame for Short term goals: 5 visits: Short term goal 1: Pt. to be indep with bed mob. 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 Short [...] Warner MD - 09/21/2020 9:10 AM EST [facility] Office: [phone] Dwayne Orourke DO, Sabino Archibald DO, Lam Mayo DO, Momo Aguilera DO, Tyson Warner MD, Amie Haque MD, Fernando Vera MD, Deanne Clay MD, Twin Be MD, Nadeen Amezcua MD, MD Ashia, Haris Pacheco MD, Shanae Ramirez MD, Sandoval Whitaker DO, Liane Carvajal MD, Beth Gordillo MD, Homar Dennis DO, Sofiya Guzmán MD, Nat Amezcua DO, Spencer Castellano MD, MD Juan, Donya Monsalve, MOLDING FITTER, Adali Cameron, MOLDING FITTER, Bambi Muhammad, MOLDING FITTER, Jennifer Keller, CUSTOMS INVESTIGATOR,Devyn Trejo, MOLDING FITTER, Ladi Pedersen, MOLDING FITTER, Deyanira Leo, MOLDING FITTER, Mary Jane Bauman, MOLDING FITTER, Kuldip Knight, MOLDING FITTER, Charli Cueva PA-C, Heidi Foote, ZACH, Charline Swanson, MOLDING FITTER, Adelina Adamson, MOLDING FITTER, Madison Maya, MOLDING FITTER, Gemma Lopez, MOLDING FITTER, Lory Schrader, MOLDING FITTER [facility] IN-PATIENT SERVICE [facility] Progress Note 09/21/2020 9:10 AM Name: Levon Bond Acct: [id number] Room: IP Day: 1 Admit Date: 09/20/2020 [...] Infusions: sodium chloride 125 mL/hr at 09/20/20 1889 PRN Meds: nitroGLYCERIN, sodium chloride flush, promethazine OR ondansetron, magnesium hydroxide, oxyCODONE OR oxyCODONE, HYDROmorphone OR HYDROmorphone, chlordiazePOXIDE Data: Past Medical History: has a past medical history of Anginal pain (HCC), Arthritis, Fibromyalgia, Hyperlipidemia, NJ (myocardial infarction) (HCC), Mood swings, Prolonged emergence [...] RDW, PLT, MPV, SEDRATE, CRP, INR, DDIMER, LJ1WAEOH, LABABSO in the last 72 hours. Invalid input(s): PT Chemistry:No results for input(s): NA, K, CL, CO2, GLUCOSE, BUN, CREATININE, MG, ANIONGAP, LABGLOM,GFRAA, CALCIUM, CAION, PHOS, PSA, PROBNP, TROPHS, CKTOTAL, CKMB, CKMBINDEX, MYOGLOBIN, DIGOXIN, LACTACIDWB in the last 72 hours.No results for input(s): PROT, LABALBU, LABA1C, X4JUVLT, L1ZFRQQ, FT4, TSH, AST, ALT, LDH, GGT, ALKPHOS, LABGGT, BILITOT, BILIDIR, AMMONIA, AMYLASE, LIPASE, LACTATE, CHOL, HDL, LDLCHOLESTEROL, CHOLHDLRATIO, TRIG, VLDL, MYV24LQ, PHENYTOIN, PHENYF, URICACID, POCGLU in the last 72 hours. ABG:No results found for: POCPH, PHART, PH, POCPCO2, JGV0NHI, PCO2, POCPO2, PO2ART, PO2, POCHCO3, ORU3DPV, HCO3, NBEA, PBEA, BEART, BE, THGBART, THB, SVK3XGI, EAWE8ODW, Y0KEBIHO, O2SAT, FIO2 No results found for: SPECIAL [...] MD - 09/21/2020 7:50 AM EST Ortho Amnr-ry-Gvck Discussion of Medical Necessity for Use of [...] of Anginal pain (HCC), Arthritis, Fibromyalgia, Hyperlipidemia, NJ (myocardial infarction) (HCC), Mood swings, Prolonged emergence [...] Ambulation Assistance: Independent Transfer Assistance: Independent Active Stonehand: Yes Mode of Transportation: Car Occupation: Retired Type of occupation: retired from [employer]. 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 [...] with bed mob. 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 Does play [employer] for a living now. Leisure & Hobbies: [...] Gross LUE Strength: WFL LUE Strength Comment: Aniy UE's 5/5 RUE Strength Gross RUE Strength: WFL Plan Plan Times per week: 5-6 x/week, 1-2x/day Current Treatment Recommendations: Strengthening, Balance Training, Functional Mobility Training, Endurance Training, Safety Education & Training, Self-Care / ADL, Patient/Caregiver Education & Training, Equipment Evaluation, Education, & procurement, Positioning Goals Short term goals Time Frame for Short term goals: by discharge, pt will Short term goal 1: demo S/NJ with ADL transfers and functional mob with good safety/pacing and approp AD/DME Short term goal 2: demo S/NJ with toileting routine Short term goal 3: [...] plan is Home. Agency/Facility chosen: [facility] Awaiting pre-certification no Anticipated discharge [...] Coronary atherosclerosis of unspecified type of vessel, naknek or graft Reason for Referral StatusReasonSpecialtyDiagnoses / ProceduresReferred By ContactReferred To ContactOpen Patient Preference Physical Therapy Diagnoses Acute postoperative pain Localized osteoarthritis of right knee Kareem Diaz MD [address] [place] [address] SpecialtyDiagnoses / ProceduresReferred By ContactReferred To Contact Diagnoses Coronary artery disease involving naknek coronary artery of naknek heart without angina pectoris Preop examination Urinary frequency Hypertension, unspecified type Procedures ECG 12 lead Juan Carlos Alas Jr., DO [address] [facility] [address] [place] [address] Referral IDStatusReasonStart DateExpiration DateVisits RequestedVisits [id number] Review/ Hospital Course * Kareem Diaz MD - 09/21/2020 7:53 AM EST Physician Discharge Summary Patient ID: Levon Bond [id number] y.o. 1950 Admit date: 09/20/2020 Discharge [...] Patient Instructions: Levon Bond Home Medication Instructions JE:[id number] Printed on:09/21/20 6555 Medication Information aspirin 325 MG EC tablet [...] Discharge Instructions * Discharge Instr - SERJIO* Jeremaís Aguirre RN - 09/21/2020 7:53 AM EST [...] Emergency Contact Information Primary Emergency Contact: Doc[facility]ai [facility] Relation: Spouse Past Surgical History: Past Surgical History: Procedure Laterality Date ANKLE SURGERY CARDIAC CATHETERIZATION 12/19/2015 double bypass CARPAL TUNNEL RELEASE Bilateral CERVICAL FUSION COLONOSCOPY CORONARY ARTERY BYPASS GRAFT 2016 Double bypass LEG SURGERY due to accident [place] SHLDR ARTHROSCOP,SURG,W/ROTAT CUFF REPR Left 04/01/2018 SHOULDER ARTHROSCOPY LEFT WITH ROTATOR CUFF REPAIR - KAMARA & NEPHEW performed by Kareem Diaz MD at [facility] OR ROTATOR CUFF REPAIR Left 04/01/2018 with arthroscopy TOTAL KNEE ARTHROPLASTY Right 09/20/2020 RIGHT KNEE TOTAL ARTHROPLASTY performed by Kareem Diaz MD at [facility] OR TRANSESOPHAGEAL ECHOCARDIOGRAM 12/19/2015 [...] Independent Dressing Assisted Toileting Independent Feeding Independent Special Projects Manager Independent Med Delivery whole Wound Care Documentation [...] Readmission: 6 Discharging to Facility/ Agency Name: [facility] Details FAX [phone] [place] [address] Dialysis Facility (if applicable) Name: Address: Dialysis Schedule: Phone: Fax: Type 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 [facility] is here to support you. If you have questions, call [phone] Saturday through Saturday from 7:30AM to 8:30PM to speak to a nurse. If you need to speak to someone outside of these hours, call your physician. Incision Do s and Don ts Do wash hands before and after dressing changes or when you have had any contact with your incision. Use hand airline ticket agent or antibacterial soap. Do keep your incision [...] Everywhere. * TKR (Total Knee Replacement): Post-op (Albanian) * TKR (Total Knee Replacement): Rehabilitation (Albanian) * Constipation (Albanian) * DVT (Deep Vein Thrombosis): General Info (Albanian) * acetaminophen and oxycodone (Albanian) * aspirin (oral) (Albanian) * docusate and senna (Albanian) documented in this encounter Additional Source Comments (unrecognized sect ion and content) No Status Records FoundNo Status Records FoundNo Status Records FoundNo Status Records FoundNo Status Records FoundNo Status Records FoundNo Status Records FoundNo Status Records FoundNo Status Records Found INFORMATION SOURCE (unrecogn ized section and content) DATE CREATED AUTHOR 03/12/[address] [facility] DATE CREATED AUTHOR AUTHOR'S ORGANIZ ATION 09/23/2020 [facility] DATE CREATED AUTHOR AUTHOR'S ORGANIZ ATION 02/22/2023 [facility] DATE CREATED AUTHOR AUTHOR'S ORGANIZ ATION 11/23/2023 [facility] DATE CREATED AUTHOR AUTHOR'S ORGANIZ ATION 10/20/2024 [facility] DATE CREATED AUTHOR AUTHOR'S ORGANIZ ATION 10/27/2024 [facility] DATE CREATED AUTHOR AUTHOR'S ORGANIZ ATION 10/30/2024 [facility] DATE CREATED AUTHOR AUTHOR'S ORGANIZ ATION 05/13/[address] [facility] Reason for Visit (unrecogniz ed section and content) StatusReasonSpecialtyDiagnoses / ProceduresReferred By ContactReferred To Contact Diagnoses Osteoarthritis of right knee DX OA RIGHT KNEE Procedures NC TOTAL KNEE ARTHROPLASTY RIGHT KNEE TOTAL ARTHROPLASTY- BIOMET Kareem Diaz MD [address] [place] [address] [facility] ReasonCommentsPainReasonCommentsSkin CheckReasonCommentsFollow-up Ordered Prescriptions (unrec ognized section and content) PrescriptionSigDispensedRefillsStart DateEnd pantoprazole (PROTONIX) 40 MG tablet Take 1 tablet by mouth every morning (before breakfast) for 15 days 15 tablet Misc. Devices (WALKER) MISC 1 each by Does not apply route daily 1 each aspirin 325 MG EC tablet Take 1 tablet by mouth 2 times daily for 14 days 28 tablet / oxyCODONE-acetaminophen (PERCOCET) 5-325 MG per tablet Indications:Acute postoperative pain,Localized osteoarthritis of right kneeTake 1-2 tablets by mouth every 4 hours as needed for Pain for up to 7 days. 50 tablet / ondansetron (ZOFRAN) 4 MG tablet Take 1 tablet by mouth every 6 hours as needed for Nausea 30 tablet docusate sodium (COLACE) 100 MG capsule Take 1 capsule by mouth 2 times daily 30 capsule Care Teams (unrecognized sec tion and content) Team MemberRelationshipSpecialtyStart End Charity Yin MD [address] [phone] PCP - GeneralFamily Medicine01/30/23Te MemberRelationshipSpecialtyStart End Charity Yin MD [address] [place] [address] PCP - GeneralFamily Medicine01/30/23Team MemberRelationshipSpecialtyStart End Charity Yin MD [address] [place] [address] PCP - GeneralFamily Medicine01/30/23Team MemberRelationshipSpecialtyStart DateEnd Charity Yin MD [address] [facility] [place] [address] PCP - [facility]01/30/23[facility] MemberRelationshipSpecialtyGreat [place] DateEnd Charity Yin MD [address] [facility] [place] [address] PCP - [facility]01/30/23 [facility]Relations[facility] DateEnd Charity Yin MD [address] [facility] [place] [phone] [facility] - [facility]05/12/18 FOR RECORDS PERTAINING TO PATIENTS WHO ARE [...] BE BASED ON THE PRIMARY CLINICAL RECORDS. [facility]. provides no warranty or guarantee of the accuracy or completeness of information in this document.
--- OUTSIDE RECORDS SUMMARY | 2025-08-23 06:26 | XMS_ITS | Clinical Summary ---
Author Organization [facility] Address [address], [address] [place] [address] Care Team Providers Care Executive Vp Name Role Phone Ruddy Salas MD Primary Care Provider [phone] Allergies No known active allergies Medications MedicationSigDispense QuantityRefillsLast FilledStart DateEnd DateStatus traZODone (DESYREL) 100 MG tablet Take 150 mg by mouth nightlyActive atorvastatin (LIPITOR) 40 MG tablet Take 40 mg by mouth nightlyActive nitroGLYCERIN (NITROSTAT) 0.[address] 0.4 mg under the tongue every 5 minutes as needed for Chest pain up to max of 3 total doses. If no relief after 1 dose, call 911.Active metoprolol succinate (TOPROL XL) 25 MG extended release tablet Take 12.5 mg by mouth Daily with supperActive chlordiazePOXIDE (LIBRIUM) 10 MG capsule Take 10 mg by mouth daily.Active docusate sodium (COLACE) 100 MG capsule Take 1 capsule by mouth 2 times daily 30 capsule 09/21/2020ctive ondansetron (ZOFRAN) 4 MG tablet Take 1 tablet by mouth every 6 hours as needed for Nausea 30 tablet ctive aspirin 325 MG EC tablet Take 1 tablet by mouth 2 times daily for 14 days 28 tablet 09/21/2020ctive Misc. Devices (WALKER) MISC 1 each by Does not apply route daily 1 each 09/21/2020ctive pantoprazole (PROTONIX) 40 MG tablet Take 1 tablet by mouth every morning (before breakfast) for 15 days 15 tablet ctive Active Problems ProblemNoted DateDiagnosed DateLocalized osteoarthritis of right knee09/20/2020 CAD (coronary artery disease)09/20/2020HyperlipidemiaFibromyalgiaMood swings Overview (09/20/2020): on librium History of prolonged emergence from general anesthesia in 1983 Overview (09/20/2020): after one surgery 1983 Family History Medical HistoryRelationNameCommentsCancerBrother 1Heart AttackBrother 1Heart SurgeryBrother 1DiabetesBrother 2Heart DiseaseBrother 3Heart AttackFatherHeart SurgeryFatherHeart AttackMotherStrokeMotherDiabetesSister 1RelationNameStatus CommentsBrother 1AliveBrother 2AliveBrother 3AliveFatherDeceasedMotherDeceased Sister 1DeceasedSister 2Alive Social History Tobacco UseTypesPacks/DayYears UsedDateSmoking Tobacco: FormerCigarettesQuit: 03/18/1995Smokeless Tobacco: FormerAlcohol UseStandard Drinks/WeekCommentsNo0 (1 standard drink = 0.6 oz pure alcohol)Sex and Gender InformationValueDate RecordedSex Assigned at BirthNot on fileLegal EzjHseb2010/26/2012 10:47 AM EST Gender IdentityNot on fileSexual OrientationNot on file Last Filed Vital Signs Vital SignReadingTime TakenCommentsBlood Tqzkhtcf663/ 11:33 AM EST Nkyiw764009/22/2020 11:33 AM NMBQwmxwjsmgld96.1 ??C (98.8 ??F)09/22/2020 11:33 AM ESTRespiratory Ukww621709/22/2020 11:33 AM ESTOxygen Jolnboyfrm21%09/22/2020 11:33 AM ESTInhaled Oxygen Concentration--Gvujye68.5 kg (155 lb 6.8 oz)09/20/2020 6:08 AM KGFSchkml275.7 cm (5' 8 )09/20/2020 6:08 AM ESTBody Mass Index23. 6:08 AM EST Plan of Treatment Not on file Medical Devices ImplantedTypeAreaManufacturerDevice IdentifierShelf Expiration DateModel / Serial / LotAnchor Sut Healicoil W/3 Ultrabraid 5.5mm Implanted:Qty: 1 on 04/01/2018 [facility] Bee STEVENSON NEPHJAIME-[id number] / / [id number] Sut Healicoil W/3 Ultrabraid 5.5mm Implanted:Qty: 1 on 04/01/2018 [facility] Bee STEVENSON NEPHJAIME-PMM110/31/[id number] / / [id number] Sut Healicoil W/3 Ultrabraid 5.5mm Implanted:Qty: 1 on 04/01/2018 [facility] Bee STEVENSON NEPHJAIME-[id number] / / [id number] Use [id number] Impl Knee Psn All Poly Pat Ply 29mm Implanted:Qty: 1 on 09/20/2020 [facility] KneeZ[employer]-PMM06/05/[id number] / / [id number] Tib Stm 5 Deg Sz F R Implanted:Qty: 1 on 09/20/2020 [facility] [employer]neeZIM[employer]-WD04/21/[id number] / / [id number] Mc Ve Asf R 10mm 8-11 Ef Implanted:Qty: 1 on 09/20/2020 [facility] [employer]-WD01/13/[id number] / / [id number] Psn Fem Cp Cmt Ccr Std Sz8r Implanted:Qty: 1 on 09/20/2020 [facility]Right: [employer]-PMM04/16/[id number] / / [id number] Bne 40gm Hi Visc Radpq For Rev Surg Implanted:Qty: 2 on 09/20/2020 [facility] [employer]nee[employer]-[id number] / / [id number]:LOT # SAMEScrew Bne L25mm Dia2.5mm Knee Full Thrd Hex Fem Persona Implanted:Qty: 1 on 09/20/2020 [facility]: [employer]nee[employer]-[id number] / / [id number] [place] [address] MemberSubscriberPlan / Payer (Effective 2014-Present)Name:Levon Roach Relation to Subscriber:SelfName:Levon Roach Payer ID:Not on file Group ID:Not on file Type:Not on file Address: [place] [id number] Advance Directives * Full Code (Latest Code Status on File) Date ActivatedDate InactivatedComments09/20/2020 11:51 AM09/22/2020 6:51 PM Care Teams Team MemberRelationshipSpecialtyStart DateEnd Date Ruddy Salas MD [address] [place] [address] [facility]03/18/18
--- OUTSIDE RECORDS SUMMARY | 2025-08-23 06:27 | XMS_ITS | Patient Health Record ---
Author Organization [facility] in [place] Address [address] [place] [address] Care Team Providers Care Quarter Doper Name Role Phone Fco Salas Primary Care Provider Miri Simmons Unavailable [phone] Allergies Allergen (clinical drug ingredient) Drug/Non Drug Allergy documented on EMR Reaction Allergy Type Onset Date Status amoxicillin / clavulanate Augmentin Nausea , Blurry Vision, Fluid Retention Drug Allergy Active Results Component Value Reference Range Notes URIC ACID SERUM Reviewed date:09/06/2024 02:27:16 PM Interpretation: Performing Lab: Notes/Report: [facility] , Uric Acid 4.7 3.5-7.2 mg/dL Performing Lab:see note - [facility] LBTSH Reviewed date:09/06/2024 02:27:16 PM Interpretation: Performing Lab: Notes/Report: [facility] ,Thyroid Stimulating Hormone4.1970.358-3.740 uIU/mLPerforming Lab:see noteML - [facility] LBT4 Reviewed date:09/06/2024 02:27:16 PM Interpretation: Performing Lab: Notes/Report: [facility] ,T4 Thyroxine7.304.50-12.10 ug/dLPerforming Lab:see note - [facility] LBPSA SCREENING Reviewed date:09/06/2024 02:27:16 PM Interpretation: Performing Lab: Notes/Report: [facility] ,Prostate Specific Antigen Scrn1.76<=4.00 ng/mLPerforming Lab:see noteML - [facility] LBPROF 14(COMP METB) Reviewed date:09/06/2024 02:27:16 PM Interpretation: Performing Lab: Notes/Report: [facility] ,Ftobsc050793-154 mmol/LPotassium4.43.5-5.1 mmol/ZVfccbbmw98415-537 mmol/LCarbon Kdmfgwf22.121.0-32.0 mmol/LAnion Gap10.9Pzuxqkv2299-303 mg/dLBlood Urea Nitrogen 20.07.0-18.0 mg/dLCreatinine1.090.70-1.30 mg/dLEstimated GFR ( Madalyn>60 >=60 mL/min/1.73m 2Estimated GFR (Non- Melvina>60>=60 mL/min/1.73m 2BUN Creatinine Ratio18.3Ahsgoth4.48.5-10.1 mg/dLBilirubin Total0.50.2-1.0 mg/dL Aspartate Amino Bxegiqtpotk6488-89 U/LAlanine Cqdskyunjatqlmpe8428-81 U/L Alkaline Cxhxlyhzaaq1105-176 U/LTotal Protein7.16.4-8.2 g/dLAlbumin Level3.73.4- 5.0 g/dLGlobulin3.4Albumin Globulin Ratio1.1Performing Lab:see noteML - [facility] LBLIPID PROFILE Reviewed date:09/06/2024 02:27:16 PM Interpretation: Performing Lab: Notes/Report: [facility] ,Gbrteldzacowh17<=150 mg/tELnsegpuvxgy446<=200 mg/dLHDL Ftlfxcyojoj0669-32 mg/dL > or =60 mg/dl - LOW CARDIOVASCULAR RISK <40 mg/dl - HIGH CARDIOVASCULAR RISK LDL Cholesterol Ehocoybqci42.8 160-189 mg/dl HIGH 100-129 mg/dl NEAR OR ABOVE OPTIMAL 130-159 mg/dl BORDERLINE HIGH <100 mg/dl OPTIMAL >190 mg/dl VERY HIGH VLDL OWNBOJXNDPU86.2Chol HDL Ratio2.8 7.1 - 11.0 MODERATE RISK >11.0 HIGH RISK 3.3 - 4.4 LOW RISK 4.4 - 7.1 AVERAGE RISK Performing Lab:see noteML - [facility] LBINSULIN Reviewed date:09/07/2024 08:37:55 PM Interpretation: Performing Lab: Notes/Report: [facility] ,Lmwcxbd18.82.6-24.9 uIU/mL [address] [place], [place] [id number] Workers Compensation Analyst: Shaun Thomson PhD, Phone: [phone] Performed at: - [facility] Performing Lab:see noteLC - [facility] LBGLYCOHEMOGLOBIN A1C Reviewed date:09/06/2024 02:27:16 PM Interpretation: Performing Lab: Notes/Report: [facility] ,Glycohemoglobin A1C5.54.5-6.2 % ADA THERAPEUTIC TARGET < 7.0 ACTION SUGGESTED > 7.0 ADA RECOMMENDED LIMIT 4.0 - 6.0 Estimated Average Ndnkqjq633Anopexksmb Lab:see noteML - [facility] LB FREE T3 Reviewed date:09/06/2024 02:27:16 PM Interpretation: Performing Lab: Notes/Report: [facility] ,Free T32.782.18-3.98 pg/mLPerforming Lab:see noteML - [facility] LB CBC AUTO DIFF Reviewed date:09/06/2024 02:27:16 PM Interpretation: Performing Lab: Notes/Report: [facility] ,White Blood Count5.34.0-11.0 10 3/uLRed Blood Count4.724.70-6.10 10 6/uL Wnvyhbfyhd50.414.0-18.0 g/uSJrfkrsdqds77.342.0-54.0 %Mean Corpuscular Uswptn43.1 80.0-94.0 fLMean Corpuscular Bsihlemqug21.625.9-34.0 pgMean Corpuscular HGB Conc 33.329.9-35.2 g/dLRed Cell Distribution Width11.911.0-15.0 %Platelet Rapgw333 150-450 10 3/uLMean Platelet Volume9.59.5-13.5 fLNeutrophils Percent Auto60.0 43.0-75.0 %Lymphocytes Percent Auto26.720.5-60.0 %Monocytes Percent Auto9.51.7- 12.0 %Eosinophils Percent Auto3.20.9-7.0 %Basophils Percent Auto0.40.2-2.0 % Immature Granulocytes Pct Auto0.20.0-0.5 %Neutrophils Absolute Auto3.21.4-6.5 10 3/uLLymphocytes Absolute Auto1.41.2-3.8 10 3/uLMonocytes Absolute Auto0.50.3-0.8 10 3/uLEosinophils Absolute Auto0.20.0-0.7 10 3/uLBasophils Absolute Auto0.00.0- 0.1 10 3/uLImmature Granulocytes Abs Auto0.010.00-0.03 10 3/uLPerforming Lab:see noteML - [facility] SPECT rest str Reviewed date:05/06/2025 04:49:35 PM Interpretation: Performing Lab: Notes/Report: Source Facility: [facility]-[address] [place] [address] Nuclear Medicine Report Signed Patient: ASAD ROACH I MR#: [id number] : 1950 Acct:[id number] Age/Sex: 74 / M ADM Date: 05/06/25 Loc: [place] Attending Dr: JUAN CARLOS POTTER Ordering Physician: JUAN CARLOS POTTER Date of Service: 05/06/25 Procedure(s): NM alcira perf SPECT rest str Accession Number(s): [id number] cc: Ruddy Salas M.D.; JUAN CARLOS POTTER Patient Name: ASAD ROACH MR#: [id number] : 1950 Exam Date: 05/06/2025 Ordering Doctor: DR JUAN CARLOS POTTER M.D. RADIOLOGY REPORT PROCEDURE: NM ALCIRA PERF SPECT REST STR COMPARISON: None. INDICATIONS: CORONARY ARTERY DISEASE, FATIGUE, DIZZINESS TECHNIQUE: Exam Description: Rest/Stress one day protocol gated SPECT Rest Imagin.4 mCi Tc-99m Cardiolite IV on 05/06/2025 Stress Imaging 30.5 mCi Tc-99m Cardiolite IV on 05/06/2025 Exercise Protocol: 0.4 mg Lexiscan given IV Heart Rate (bpm): Rest: 46 Max: 76 PMHR: 52 Blood Pressure: Rest: 142/78 Max: 142/78 Symptoms: Rest and peak stress ECG findings were pending, and the exercise portion of the study was pending per attending physician [facility]. For more details, please see separate cardiac stress test report. FINDINGS: QUALITY OF STUDY: Good PERFUSION DEFECT: LOCATION: N/A SIZE: N/A SEVERITY: N/A TYPE: N/A WALL MOTION: Normal wall motion LV SIZE: 87 mL. TID / TCD: 0.8 LVEF: Calculated EF 62%. SUMMARY: Myocardial perfusion imaging study is normal CONCLUSION: 1. Myocardial perfusion is normal with soft tissue attenuation 2. Global left ventricular systolic function is normal 3. No significant transient ischemic dilatation Dictated by: Alejo Wallace M.D. on 05/06/2025 at 16:26 Approved by: Alejo Wallace M.D. on 05/06/2025 at 16:29 Dictated By: Alejo Wallace M.D. Signed By: 05/06/25 1630 DD/ 1629 TD/TT: Cooling Tower Technician:SILVINO echo doppler complete Reviewed date:05/06/2025 04:49:35 PM Interpretation: Performing Lab: Notes/Report: Source Facility: [place] [address] Cardiology Report Signed Patient: ASAD ROACH I MR#: [id number] : 1950 Acct:[id number] Age/Sex: 74 / M ADM Date: 05/06/25 Loc: [place] Attending Dr: JUAN CARLOS POTTER Ordering Physician: JUAN CARLOS POTTER Date of Service: 05/06/25 Procedure(s): CA echo doppler complete Accession Number(s): [id number] cc: Ruddy Salas M.D.; JUAN CARLOS POTTER Patient Name: ASAD ROACH MR#: [id number] : 1950 Exam Date: 05/06/2025 Ordering Doctor: DR JUAN CARLOS POTTER M.D. ECHOCARDIOGRAM REPORT PROCEDURE: CA ECHO DOPPLER COMPLETE INDICATIONS: Chest pain, hypertension COMPARISON: None. DESCRIPTION: COMPLETE ECHOCARDIOGRAM Real-time transthoracic echocardiography with 2D, M-mode, spectral and color flow Doppler performed. QUALITY: Technical quality was good. LEFT VENTRICLE: Normal chamber size. Borderline left ventricular hypertrophy. LV EF: Global left ventricular systolic function is normal. Calculated left ventricular ejection fraction is 63%. No significant wall motion abnormalities. DIASTOLIC: Normal diastolic function. ATRIAL SEPTUM: Visually appears intact. LEFT ATRIUM: Normal chamber size. RIGHT ATRIUM: Mild dilatation. RIGHT VENTRICLE: Normal chamber size. Normal right ventricular systolic function. TRICUSPID VALVE: Normal mobility and thickness. Moderate regurgitation. No evidence of pulmonary hypertension. RVSP 30mmHg. MITRAL VALVE: Normal mobility and thickness. No evidence of mitral valve stenosis. There is no mitral annular calcification. Trivial mitral regurgitation. AORTIC VALVE: Normal trileaflet appearance. No visible sclerosis. Normal leaflet mobility. No evidence of aortic valve stenosis. Mild aortic regurgitation. AORTIC ROOT: Normal diameter and appearance. PULMONIC VALVE: Normal thickness and mobility. No stenosis. Trivial regurgitation. PERICARDIUM: No evidence of pericardial effusion. IVC: Collapses with inspiration. Normal size. CONCLUSION: 1. Global left ventricular systolic function is normal; visually estimated ejection fraction is 60 to 65% 2. Normal right ventricular size and systolic function 3. Normal left ventricular hypertrophy 4. Normal diastolic function 5. The right atrium is mildly dilated 6. Moderate tricuspid regurgitation 7. Mild aortic regurgitation Adult Echocardiography Procedure Report Left Ventricle LVEDD (3.7 - 5.6 cm): 4.56 cm LVESD (2.2 - 4.0 cm): 3.05 cm LVIVS thickness (0.6 - 1.2 cm): 1.22 cm LVPW thickness (0.5 - 1.0 cm): 1.09 cm e': 0.10 m/s E - e': 5.53 LVOT Max Gradient: 2.60 mm[Hg] LVOT Area (cm2): 0.81 m/s Peak Velocity (LVOT): 0.81 m/s Mean Velocity (LVOT): 0.48 m/s LVOT Diameter 2.19 cm Left Ventricular Ejection Fraction: 63.10 % Left Atrium LA Volume Index (2D A2C): 35.54 ml/m2 Left Atrium Systolic Dimension: 4.30 cm Mitral Valve MV E to A Ratio: 0.75 Mitral Valve A-Wave Peak Velocity: 0.76 m/s Mitral Valve E-Wave Peak Velocity: 0.57 m/s Right Ventricle RV Internal Diastolic Dimension: 3.41 cm Aorta AO Root Diam: 2.90 cm Ascending Ao Diam: 3.28 cm Aortic Valve AoV Area (Peak Ananda): 2.79 cm2, 2.79 cm2 AoV Area (VTI): 2.61 cm2, 2.61 cm2 Deceleration Ponce: 1.67 m/s2 Pressure Half-Time: 620.31 ms Peak Velocity(Antegrade Flow): 1.09 m/s Peak Gradient(Antegrade Flow): 4.78 mm[Hg] Mean Velocity(Antegrade Flow): 0.68 m/s Mean Gradient(Antegrade Flow): 2.21 mm[Hg] Velocity Time Integral: 23.62 cm Tricuspid Valve Peak Velocity (Regurgitant Flow): 2.61 m/s, 2.42 m/s, 2.46 m/s, 2.48 m/s Pulmonic Valve Mean Gradient: 1.60 mm[Hg], 2.00 mm[Hg] Mean Velocity: 0.58 m/s, 0.65 m/s Peak Velocity: 0.97 m/s Peak Gradient: 3.21 mm[Hg], 4.39 mm[Hg] Right Atrium Right Atrium Systolic Pressure: 39.58 ml, 39.58 ml Dictated by: Alejo Wallace M.D. on 05/06/2025 at 16:00 Approved by: Alejo Wallace M.D. on 05/06/2025 at 16:03 Dictated By: Alejo Wallace M.D. Signed By: 05/06/25 1604 DD/ 1603 TD/TT: Cooling Tower Technician: Reason For Referral Diagnosis 1 Skin cyst (L72.9) Referral Organization [facility] Medicine Referring Provider First Name Fco Referring Provider Last Name Josue Referring Provider Speciality Family Med laine Referred Provider Amadeo Sheikh Referred Provider Specialty General Surg jaquan Referral Priority Routine Diagnosis 1 H/O two vessel coron josé luis artery bypass graft (Z95.1) Diagnosis 2 Coronary artery dise ase involving [place] coronary artery of [place] heart without angina pectoris (I25.10) Diagnosis 3 Hyperlipidemia, unsp ecified hyperlipidemia type (E78.5) Diagnosis 4 LVH (left ventricula r hypertrophy) (I51.7) Diagnosis 5 Sinus bradycardia (R 00.1) Diagnosis 6 Right ventricular dy sfunction (I51.9) Referral Organization [facility] Referring Provider First Name Fco Referring Provider Last Name Josue Referring Provider Speciality [facility] icine Referred Provider [facility] Cardiology, [facility] Referred Provider Specialty Cardiology Referral Priority Routine Medications Medication SIG (Take, Route, Frequency, Duration) Notes Start Date End Date Status traZODone HCl 100 MG Take 2 tablets by mouth onc e daily; Duration: 30 ActivehydrOXYzine HCl 25 MG1 tablet as needed Orally qid; Duration: 10 days 5ActiveMetoprolol Succinate ER 25 MGTake 1/2 (one-half) tablet by mouth once daily; Duration: 90ActiveMeloxicam 15 MG1 tablet Orally Once a day; Duration: 30 days5ActiveCetirizine HCl 10 MGTake 1 tablet by mouth once daily; Duration: 30ActiveHYDROcodone-Acetaminophen 5-325 MG1 tablet Orally qid - prn; Duration: 14 daysM1.5ActiveSildenafil Citrate 100 MGTAKE 1 TABLET BY MOUTH ONCE A DAY NEEDED 30 MINUTES BEFORE INTERCOURSE NOT MORE THAN EVERY 3 DAYS; Duration: 23 daysActiveAtorvastatin Calcium 40 MG1 tablet Orally Once a day; Duration: 90 daysActiveAspir-81 81 MGOrally Once a dayActive Nitroglycerin 0.4 MG1 tablet Sublingual every 5 min. not to exceed 3 in 15 min period; Duration: 90 daysPRNActive Immunizations Vaccine Route Administration Date Status Comme nts Flu, Fluad (57340) 65 yrs and older, single-dose syringe (3303-8167) IM Intramuscular 06/30/2024 Administered Flu, Fluad (81942) 65 yrs and older, single-dose syringe (9352-3482)IM Zjmbgzhjwytsy57/09/2025AdministeredFlu, Fluad (53216) 65 yrs+, single-dose syringe (8265-9049)IM Kvjnonzwdpmql70/17/2023Administered Social History Tobacco Use: Social History Observation Description Date Details (start date - stop date) Former Smoker NA - 03/16/1995 Tobacco Use/Smoking Question Answer Notes Patient is a former smoker When did you stop smoking?03/16/1995How long has it been since you last smoked?> 10 yearsAlcohol Screen (Audit-C) Question Answer Notes Did you have a drink containing alcohol in the p ast year? No Eulhor5ZdfveoohhegycmKczlyipeRozvja Will Question Answer Notes Living Will Yes, patient has a living will, but it is not on file AUDIT-C (Standard) Question Answer Notes Did you have a drink containing alcohol in the p ast year? No Qhtusz7TntghleteqrwwfEnqbygkb Problems Problem Type SNOMED Code ICD Code Onset Dates Problem Status W/U Status Risk Notes Problem Acute frontal sinusitis (1095650 8) Acute recurrent frontal sinusitis (J01.11) ActiveconfirmedProblemSebaceous cyst (345898290)Sebaceous cyst (L72.3)Active confirmedProblemArthritis of left knee (5853542126917884)Other specified arthritis, left knee (M13.862)ActiveconfirmedProblemGanglion (23026251)Ganglion, other site (M67.48)ActiveconfirmedProblemNocturia (610414102)Nocturia (R35.1) ActiveconfirmedProblemAltered mental status (009305773)Altered mental status, unspecified (R41.82)ActiveconfirmedProblemPreoperative cardiovascular examination (434809697)Encounter for preprocedural cardiovascular examination (Z01.810)Activeconfirmed REPLACEMENT TOTAL JOINT KNEE (Left: Knee) MANIPULATION KNEE (Right: Knee) Dr.George Alas , 11/19/2023 , [facility] ProblemLong-term current use of systemic steroid (449147878681317)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 (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) use of systemic steroids (Z79.52)ActiveconfirmedProblemArtificial knee joint present (886774883740)Presence of right artificial knee joint (Z96.651) ActiveconfirmedProblemFatigue (85713621)Fatigue (R53.83)ActiveconfirmedProblem Sinus bradycardia (56303662)Sinus bradycardia (R00.1)Activeconfirmedwell toleratedProblemAnxiety (20698715)Anxiety (F41.9)ActiveconfirmedProblem Osteoarthritis of knee (280898234)Primary osteoarthritis of right knee (M17.11) ActiveconfirmedProblemCardiomegaly (7479114)LVH (left ventricular hypertrophy) (I51.7)ActiveconfirmedmildProblemInsomnia (675549961)Insomnia (G47.00)Active confirmedProblemAnkle pain (937767840)Ankle pain (M25.579)ActiveconfirmedProblem Bundle branch block (1941754)IVCD (intraventricular conduction defect) (I45.4) ActiveconfirmedProblemEssential hypertension (44327807)Essential (primary) hypertension (I10)Activeconfirmedwell controlledProblemAtherosclerotic heart disease of [place] coronary artery without angina pectoris (134880212428913) Coronary artery disease involving [place] coronary artery of [place] heart without angina pectoris (I25.10)ActiveconfirmedSTEMI (12/30) inferoposterior wall; asymptomatic, with PLVSF; Exi/cassie c-lite 04/2022 no ischemia, EF51%, March 2023 ProblemRheumatoid arthritis (29555379)RA (rheumatoid arthritis) (M06.9)Active confirmedProblemLumbar radiculopathy (011147565)Lumbar radiculopathy (M54.16) ActiveconfirmedProblemAcute sinusitis (62805451)Acute sinusitis (J01.90)Active confirmedProblemFamily history of coronary artery disease (445114923)Family history of early CAD (Z82.49)ActiveconfirmedProblemFull thickness rotator cuff tear (867588488)Complete tear of left rotator cuff (M75.122)Activeconfirmed ProblemAtypical chest pain (300118973)Atypical chest pain (R07.89)Active confirmedresolved without recurrenceProblemConstipation (05086767)Constipation (K59.00)ActiveconfirmedProblemOsteoarthritis of knee (566616397)Primary osteoarthritis of both knees (M17.0)ActiveconfirmedProblemIrritable bowel syndrome (52534490)Irritable bowel syndrome (K58.9)ActiveconfirmedProblemMemory loss (84969668)Memory loss (R41.3)ActiveconfirmedProblemArtificial knee joint present (112315929350)Status post right knee replacement (Z96.651)Active confirmedProblemFormer smoker (3660675)Former smoker (Z87.891)Activeconfirmed ProblemFibromyalgia (745065214)Fibromyalgia (M79.7)ActiveconfirmedProblem Ganglion cyst (90231099)Ganglion cyst (M67.40)ActiveconfirmedProblemNevus (9709477404)Nevus (D22.9)ActiveconfirmedProblemPeripheral vascular disease (816362949)Claudication, intermittent (I73.9)ActiveconfirmedProblemHistory of circulatory system disease (589455327)History of coronary artery disease (Z86.79)ActiveconfirmedProblemEpidermoid cyst of skin (059176383)Skin cyst (L72.9)ActiveconfirmedProblemOld myocardial infarction (5615089)Status post myocardial infarction (I25.2)ActiveconfirmedProblemElbow pain (76887781)Elbow pain (M25.529)ActiveconfirmedProblemHeart disease (43628482)Right ventricular dysfunction (I51.9)ActiveconfirmedProblemHistory of coronary artery bypass grafting (059484676)S/P CABG x 2 (Z95.1)ActiveconfirmedProblemHistory of coronary artery bypass grafting (784312678)H/O two vessel coronary artery bypass graft (Z95.1)Activeconfirmed12/19/15 SVG/OM-SVG/RCAProblemPeyronie's disease (5759510)Peyronie's disease (N48.6)ActiveconfirmedProblemEpididymitis (60698758) Epididymitis, right (N45.1)ActiveconfirmedProblemHyperlipidaemia (37059697) Hyperlipidemia, unspecified hyperlipidemia type (E78.5)ActiveconfirmedProblem Other symptoms referable to back (M53.80)ActiveconfirmedProblemBenign prostatic hypertrophy without outflow obstruction (103288971)Benign hypertrophy of prostate (N40.0)ActiveconfirmedProblemPeripheral vertigo (34016853)Vertigo, peripheral (H81.399)ActiveconfirmedProblemH/O: hypertension (286861842)H/O: hypertension (Z86.79)ActiveconfirmedProblemArthritis of left acromioclavicular joint (4684578028394406)Arthritis of left acromioclavicular joint (M19.012) ActiveconfirmedProblemAdult health examination (479366070)Encounter for routine adult medical examination (Z00.00)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)ActiveconfirmedProblemAdvanced collapse of scapholunate joint due to osteoarthritis (disorder) (128582580773564) Scapholunate advanced collapse of left 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 [place] [address] [facility] [place] [address] [place] [address]/10/[facility]24[facility] [place] [address]/[facility] [place] [address] [place] [address]/ Fco HarrellyH/O two vessel coronary artery bypass graft Z95.1 ; Hyperlipidemia, unspecified hyperlipidemia typeE78.5 and Coronary artery disease involving [place] coronary artery of [place] heart without angina pectoris I25.10[facility] [place] [address]/Doug Hoy [facility] [place] [address] 05/25/2025Doug [facility] [facility] [place] [address]/oug HoyOther specified abnormal findings of blood chemistry R79.89[facility] [facility] [place] [address]/03/2025Doug [facility] [place] [address]/04/2025Doug [facility] [facility] [address]/Doug [facility] [facility] [place] [address]/Doug [facility] [facility] [place] [address]/ Fco [facility] [place] [address]/oug [facility] [facility] [place] [address]/oug HoySkin cyst L72.9 [address] loss R41.3 [facility] [facility] [place] [address] 12/11/2024Doug HoyLow back pain, unspecified M54.50[facility] [place] [address]/04/2025Doug HoyPrimary osteoarthritis of both knees M17.0[facility] [facility] [place] [address]/11/2024Doug HoyLow back pain, unspecified M54.50 [facility] [place] [address] 04/06/2025Doug HoyLumbar radiculopathy M54.16[facility] [place] [address]/05/2025Doug HoyOther specified arthritis, left knee M13.862 and Encounter for immunization Z23 Assessments Encounter Date Diagnosis (ICD Code) Assessment Notes Treatment Notes Treatment Clinical Notes Section Notes 09/02/2024 Skin cyst (ICD-10 - L72.9) 09/02/2024Memory loss (ICD-10 - R41.3)09/23/2024Primary osteoarthritis of both knees (ICD-10 - M17.0)12/11/2024Low back pain, unspecified (ICD-10 - M54.50) Toradol and sohlhqwlaywko66/03/2025Low back pain, unspecified (ICD-10 - M54.50) 04/06/2025Lumbar radiculopathy (ICD-10 - M54.16)06/24/2025Other specified arthritis, left knee (ICD-10 - M13.862)06/24/2025Encounter for immunization (ICD-10 - Z23)09/06/2024Other specified abnormal findings of blood chemistry (ICD-10 - R79.89)04/06/2025H/O two vessel coronary artery bypass graft (ICD-10 - Z95.1)04/06/2025Hyperlipidemia, unspecified hyperlipidemia type (ICD-10 - E78.5)04/06/2025oronary artery disease involving [place] coronary artery of [place] heart without angina pectoris (ICD-10 - I25.10)11/10/2024OtherCounseling was provided regarding healthy eating habits. Continue low cholesterol diet, low salt diet, and exercise program.12/11/2024OtherRecommended to rest and use a heating pad on the area. Take NSAIDs for pain as needed Plan Of Treatment Pending Test Test Name Order Date Exercise Stress Nuclear Test 04/03/2023 CMP (COMPLETE METABOLIC PANEL) 4 CMP (COMPLETE METABOLIC PANEL) 4 D-DIMER 05/28/2017 HEMOGLOBIN A1C (GLYCO) 12/31/2023 HEMOGLOBIN A1C (GLYCO) 09/02/2024 INSULIN, TOTAL 09/02/2024 LIPID PANEL (CHOL/TRIG/HDL/LDL) 12/31/19 LIPID PANEL (CHOL/TRIG/HDL/LDL) 09/02/20 24 CBC WITH DIFF (EXP 07/2025) 09/02/2024 CBC WITH DIFF (EXP 07/2025) 12/31/2023 PSA, PROSTATE-SPECIFIC ANTIGEN 4 URIC ACID 12/31/2023 URIC ACID 09/02/2024 XR Chest PA and Lateral (Routine CXR) * 09/27/2023 CT Chest w/contrast * 05/28/2017 T3 FREE, T4 FREE and TSH 01/02/2024 PSA, TOTAL 09/02/2024 STOOL OCCULT BLOOD 09/02/2024 STOOL OCCULT BLOOD 12/31/2023 XR Elbow 4 Views Right 02/13/2023 THYROID PROFILE WITH TSH 01/27/2024 MRI BRAIN WO CON 09/02/2024 XR DEXA BONE DENSITY 03/21/2023 XR LSPINE 2_3 VIEWS 07/17/2023 THYROID PANEL (T4/TSH/FREE T3) 4 THYROID PANEL (T4/TSH/FREE T3) 4 THYROID PANEL (T4/TSH/FREE T3) 4 VASC ANKLE BRACHIAL INDEX (DELMY) WITHOUT EXERCISE 01/27/2024 Insurance Providers Payer Name Payer Address Payer Phone Subscriber Number Group Number Insured Name Patient Relationship to Insured Coverage Start Date Coverage End Date MEDICARE [place] [address] [place] [address] [id number] Edmund Roach - patient is the [id number] MEDICARE SUPPLEMENT [address] [place] [id number] Edmund Roach - patient is the [id number] 2019 Medications Administered Medication Instructions Date of Administration Dosage Notes Kenalog-40 0 mgdepo 80Kenalog-4000 mg With 1 cc of Lidocaine with epi Left Knee Injection Kenalog-4007/0 mgKenalog-4011/380 mgKenalog-400480 mg Kenalog-400/480 mgKetorolac Bzagxhlurzld82/24/202360 mgKetorolac Otiehwivaqyl49/01/202330 mgKetorolac Xxoqcrgyjylu46/28/094030 mgKetorolac Pxleejutehrd65/22/202530 mgOrphenadrine Ejcmaou88 mgTriamcinolone 40 mg/ml mgTriamcinolone 40 mg/ml mgTriamcinolone 40 mg/ml mgTriamcinolone 40 mg/ml mg Medical (General) History Medical History History ICD Code History of Hypertension History of HyperlipidemiaHistory of BradycardiaHistory of Coronary Artery DiseaseHistory of Left Ventricular HypertrophyHistory of InsomniaHistory of right ventricular dysfunctionHistory of intraventricular conduction defectAcute ztakgcjelT19.90Ganglion, other siteM67.48Low back pain, czjvnejldwhU02.50 Epididymitis, qqyydE10.1Altered mental status, dwtevxwbajqN34.82Ganglion cyst M67.13TfjdhG15.9Acute recurrent frontal nqamkvlipA09.11Claudication, iffgfooyhcmiD34.9Vertigo, eaqxjatrjpK02.399Encounter for routine adult medical krjfjcydgjmB98.00Sebaceous cystL72.3Benign hypertrophy of wdvuolnyY00.0Nocturia R35.1Irritable bowel cvhbmagdU84.9Peyronie's lenfjmuD09.6Ankle painM25.579RA (rheumatoid arthritis)M06.1McamxtqtnnspG22.7Other symptoms referable to back M53.85UahdqzwO23.9Essential (primary) lcawvpjvtofrX67Mfwojrqs artery disease involving [place] coronary artery of [place] heart without angina moezrryaJ04.10 Surgical History Surgery Date(Month/Year) Excisional Biopsy Cyst Right Wrist Lt shoulder arthroscopy, complex RCR, ca psular release Santy May 04/01/18 Right Total Knee Arthroplasty-Santy May 09/20/2020 Left Total Knee Replacement- Heart Cath 12/19/2015 CABG SV-OM; SV-RCA 12/19/2015Right tib fib ORIF with bone graftIM rodding rt tib fibcervical laminectomybilat carpal tunnelskin flap from back to rt tib fib2 cysts from back removedHospitalization History Reason Date(Month/Year) See Above
--- OUTSIDE RECORDS SUMMARY | 2025-08-23 06:27 | XMS_ITS | Patient Health Record ---
Author Organization [facility] Address [address] [place] [address] Support Name Relationship Address Phone ASAD BOND [...] Date Coverage End Date Medicare [address] [place] [address] [id number] OLGA BONDelf - patient is the insured
[2025-08-23 06:57] LABS: Hematocrit 45.3 % (42.0-54.0); Hemoglobin 15.3 g/dL (14.0-18.0); Immature Granulocytes Abs Auto 0.02 10^3/uL (0.00-0.03); Immature Granulocytes Pct Auto 0.3 % (0.0-0.5); Lymphocytes Absolute Auto 1.4 10^3/uL (1.2-3.8); Mean Corpuscular HGB Conc 33.8 g/dL (29.9-35.2); Mean Corpuscular Hemoglobin 33.7 pg (25.9-34.0); Mean Corpuscular Volume 99.8 fL (80.0-94.0); Platelet Count 234 10^3/uL (150-450); Red Blood Count 4.54 10^6/uL (4.70-6.10); White Blood Count 6.0 10^3/uL (4.0-11.0)
[2025-08-23 08:05] LABS: Alanine Aminotransferase 38 U/L (16-63); Albumin Globulin Ratio 1.1; Albumin Level 3.8 g/dL (3.4-5.0); Alkaline Phosphatase 67 U/L (46-116); Anion Gap 11.1; Aspartate Amino Transferase 29 U/L (15-37); Blood Urea Nitrogen 18.0 mg/dL (7.0-18.0); Calcium 9.3 mg/dL (8.5-10.1); Carbon Dioxide 31.7 mmol/L (21.0-32.0); Chloride 106 mmol/L (98-107); Cholesterol 118 mg/dL (<=200); Estimated GFR (African America >60 (>=60 mL/min/1.73m^2); Estimated GFR (Non-African Ame >60 (>=60 mL/min/1.73m^2); Globulin 3.4 g/dL; Glucose 93 mg/dL (74-106); HDL Cholesterol 56 mg/dL (40-60); Potassium 4.8 mmol/L (3.5-5.1); Sodium 144 mmol/L (136-145); Total Protein 7.2 g/dL (6.4-8.2); Triglycerides 31 mg/dL (<=150); VLDL CHOLESTEROL 6.2 mg/dL
== END 2025-08-23 06:22 | disposition home or self-care (01) ==
LOC: LAB 06:23
PROVIDERS: PCP Family Medicine; Visit Provider Internal Medicine Interventional Cardiology
DX: I25.118 Atherosclerotic heart disease of native coronary artery with other forms of angina pectoris (principal); I10 Essential (primary) hypertension
CPT/HCPCS: 36415; 80053; 80061; 85025